=== PATIENT | male | born 1970 | race Caucasian/White ===

== ENCOUNTER 2022-10-15 08:09 | Outpatient (OUT) | payer OTHER, SELFPAY ==
[2022-10-15 09:46] LABS: Estimated Average Glucose 154 mg/dL
== END 2022-10-15 08:10 | disposition home or self-care (01) ==
LOC: LAB 08:09
PROVIDERS: PCP Internal Medicine; Visit Provider Internal Medicine
DX: E11.42 Type 2 diabetes mellitus with diabetic polyneuropathy (principal)
CPT/HCPCS: 36415; 83036

== ENCOUNTER 2022-10-26 16:56 | Emergency (ER) | payer OTHER, SELFPAY ==
[2022-10-26 16:58] VITALS: BP 165/99; PULSE 88; RESP 20; TEMP 37.2; O2SAT 98; BMI 26.3
--- NOTE | 2022-10-26 17:01 | XR_ITS ---
The [address] [address] Patient Name: CHAVA JONES MRN: [id number] date: 1970 Sex: M Assigned Patient Location: ED.MAIN Current Patient Location: Accession/Order Number: [id number] Exam Date: 10/26/2022 17:05 Report Date: 10/26/2022 18:03 At the request of: MERLE RICHARDSON Procedure: XR shoulder LT min 2V IMAGES REVIEWED: XR shoulder LT min 2V COMPARISON: None available. CLINICAL INDICATION: Pain. FINDINGS/IMPRESSION: 1. No evidence of acute osseous abnormality of the left shoulder. 2. 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 Mild-moderate degenerative change of the left glenohumeral joint. 3. Calcified sequela of remote granulomatous disease in the left chest. Electronically authenticated by: CALOS POOLE Date: 10/26/2022 18:03
--- NOTE | 2022-10-26 17:01 | ED_ITS ---
Documented by User: SHAJI Robles 10/26/22 17:21 HPI - Extremity Injury (Upper) General Chief Complaint: Extremity Injury, Upper Stated Complaint: LEFT SHOULDER PAIN Time Seen by Provider: 10/26/22 17:01 Source: patient Mode of arrival: walk-in Limitations: no limitations History of Present Illness HPI narrative: patient is a 52-year-old male who presents to the emergency department for two week history of pain in the left glenohumeral joint. He states he developed pain after lifting and bench pressing. Pain is worse with abduction of the left shoulder. He denies any tingling in the left hand. He at no direct injury to the shoulder or the neck. No medications taken prior to arrival. he is right-hand dominant Related Data Home Medications Medication Instructions Recorded Confirmed alprazolam 0.25 mg tablet (Xanax) 0.125 mg PO TID 10/26/22 10/26/22 atorvastatin 80 mg tablet 80 mg PO DAILY 10/26/22 10/26/22 Previous Rx's Medication Instructions Recorded methocarbamol 750 mg tablet 750 mg PO TID PRN pain #20 tabs 10/26/22 methylprednisolone 4 mg tablets in See Rx Instructions .Route 10/26/22 a dose pack (Medrol (Logan)) .COMPLEX #21 ea naproxen sodium 550 mg tablet 550 mg PO BID PRN pain #10 tabs 10/26/22 Allergies Allergy/AdvReac Type Severity Reaction Status Date / Time No Known Drug Allergies Allergy Verified 10/26/22 17:00 Review of Systems ROS Constitutional Denies: fever or chills Ears, nose, mouth, and throat Denies: throat pain Cardiovascular Denies: chest pain Respiratory Denies: shortness of breath or cough Gastrointestinal Denies: nausea or vomiting Musculoskeletal Reports: extremity pain; Denies: back pain or neck pain Integumentary/Breast Denies: rash Neurological Denies: headache Exam Narrative Exam Narrative: Gen.: Awake, alert, in no distress Head: Normocephalic, atraumatic ENT: Moist mucous membranes Respiratory: No respiratory distress Extremities: 2+ left radial pulse. 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 No shortening of the left bicep, limited abduction at the left shooulder due to pain. No obvious deformity or sulcus sign of the left shoulder. No bony point tenderness of the posterior cervical spine or left scapula. Psych: Normal mood and affect Neuro: No focal neuro deficit Skin: Warm, dry, intact Constitutional Vital Signs, click to edit/add: Last Vital Signs Temp 98.9 F 10/26/22 16:58 Pulse 88 10/26/22 16:58 Resp 20 10/26/22 16:58 BP 165/99 H 10/26/22 16:58 Pulse Ox 98 10/26/22 16:58 O2 Del Method Room Air 10/26/22 16:58 Course Vital Signs Vital signs: Vital Signs Temperature 98.9 F 10/26/22 16:58 Pulse Rate 88 10/26/22 16:58 Respiratory Rate 20 10/26/22 16:58 Blood Pressure 165/99 H 10/26/22 16:58 Pulse Oximetry 98 10/26/22 16:58 Oxygen Delivery Method Room Air 10/26/22 16:58 Temperature 98.9 F 10/26/22 16:58 Pulse Rate 88 10/26/22 16:58 Respiratory Rate 20 10/26/22 16:58 Blood Pressure 165/99 H 10/26/22 16:58 Pulse Oximetry 98 10/26/22 16:58 Oxygen Delivery Method Room Air 10/26/22 16:58 MDM - Extremity Injury (Upper) MDM Narrative Medical decision making narrative: x-rays of the left shoulder with mild arthritic changes, no fracture or dislocation noted. Patient placed in a sling and encouraged to have limited use of the sling to avoid frozen shoulder. Follow-up with orthopedics. Rest, ice, gentle stretching. Patient is neurovascularly intact at discharge. Orthopedic referral given. Return to the Emergency Room if symptoms change or worsen. Imaging Data XR shoulder: Attestation: I have reviewed the pertinent imaging results. Discharge Plan Discharge Chief Complaint: Extremity Injury, Upper Clinical Impression: Acute pain of left shoulder, Left shoulder strain Patient Disposition: Home, Self-Care Time of Disposition Decision: 17:13 Condition: Good Prescriptions / Home Meds: New methylprednisolone [Medrol (Logan)] 4 mg tablets,dose pack See Rx Instructions .ROUTE .COMPLEX Qty: 21 0RF Rx Instructions: Taper as directed methocarbamol 750 mg tablet 750 mg PO TID PRN (Reason: pain) Qty: 20 0RF naproxen sodium 550 mg tablet 550 mg PO BID PRN (Reason: pain) Qty: 10 0RF No Action alprazolam [Xanax] 0.25 mg tablet 0.125 mg PO TID atorvastatin 80 mg tablet 80 mg PO DAILY Instructions: Muscle Strain (ED), How to Use a Sling (ED), Shoulder Pain (ED) Additional Instructions: Follow up with orthopedics as needed ([facility] [phone] or [facility] [phone]) Stand Alone Forms: Portal Instructions Referrals: Max Ojeda DO [Primary Care Provider] - 1 week Discharge Date/Time: 10/26/22 17:33 Documented by User: Christiano Way MD 10/26/22 19:34 HPI - Extremity Injury (Upper) General Chief Complaint: Extremity Injury, Upper Stated Complaint: LEFT SHOULDER PAIN Time Seen by Provider: 10/26/22 17:01 Related Data Home Medications Medication Instructions Recorded Confirmed alprazolam 0.25 mg tablet (Xanax) 0.125 mg PO TID 10/26/22 10/26/22 atorvastatin 80 mg tablet 80 mg PO DAILY 10/26/22 10/26/22 Previous Rx's Medication Instructions Recorded methocarbamol 750 mg tablet 750 mg PO TID PRN pain #20 tabs 10/26/22 methylprednisolone 4 mg tablets in See Rx Instructions .Route 10/26/22 a dose pack (Medrol (Logan)) .COMPLEX #21 ea naproxen sodium 550 mg tablet 550 mg PO BID PRN pain #10 tabs 10/26/22 Allergies Allergy/AdvReac Type Severity Reaction Status Date / Time No Known Drug Allergies Allergy Verified 10/26/22 17:00 Exam Constitutional Vital Signs, click to edit/add: Last Vital Signs Temp 98.9 F 10/26/22 16:58 Pulse 88 10/26/22 16:58 Resp 20 10/26/22 16:58 BP 165/99 H 10/26/22 16:58 Pulse Ox 98 10/26/22 16:58 O2 Del Method Room Air 10/26/22 16:58 Course Vital Signs Vital signs: Vital Signs Temperature 98.9 F 10/26/22 16:58 Pulse Rate 88 10/26/22 16:58 Respiratory Rate 20 10/26/22 16:58 Blood Pressure 165/99 H 10/26/22 16:58 Pulse Oximetry 98 10/26/22 16:58 Oxygen Delivery Method Room Air 10/26/22 16:58 Temperature 98.9 F 10/26/22 16:58 Pulse Rate 88 10/26/22 16:58 Respiratory Rate 20 10/26/22 16:58 Blood Pressure 165/99 H 10/26/22 16:58 Pulse Oximetry 98 10/26/22 16:58 Oxygen Delivery Method Room Air 10/26/22 16:58 MDM - Extremity Injury (Upper) MDM Narrative Medical decision making narrative: x-rays of the left shoulder with mild arthritic changes, no fracture or dislocation noted. Patient placed in a sling and encouraged to have limited use of the sling to avoid frozen shoulder. Follow-up with orthopedics. Rest, ice, gentle stretching. Patient is neurovascularly intact at discharge. Orthopedic referral given. Return to the Emergency Room if symptoms change or worsen. I, Dr Way, have reviewed the above progress note and course of action in the ER; agree with the above. I have personally seen and evaluated this patient, gone over history and physical, and discussed disposition and treatment plan with the patient. Discharge Plan Discharge Chief Complaint: Extremity Injury, Upper Clinical Impression: Acute pain of left shoulder, Left shoulder strain Patient Disposition: Home, Self-Care Time of Disposition Decision: 17:13 Condition: Good Prescriptions / Home Meds: New methylprednisolone [Medrol (Logan)] 4 mg tablets,dose pack See Rx Instructions .ROUTE .COMPLEX Qty: 21 0RF Rx Instructions: Taper as directed methocarbamol 750 mg tablet 750 mg PO TID PRN (Reason: pain) Qty: 20 0RF naproxen sodium 550 mg tablet 550 mg PO BID PRN (Reason: pain) Qty: 10 0RF No Action alprazolam [Xanax] 0.25 mg tablet 0.125 mg PO TID atorvastatin 80 mg tablet 80 mg PO DAILY Instructions: Muscle Strain (ED), How to Use a Sling (ED), Shoulder Pain (ED) Additional Instructions: Follow up with orthopedics as needed ([facility] [phone] or [facility] [place] [phone]) Stand Alone Forms: Portal Instructions Referrals: Max Ojeda DO [Primary Care Provider] - 1 week Discharge Date/Time: 10/26/22 17:33
== END 2022-10-26 17:33 | disposition home or self-care (01) ==
PROVIDERS: Emergency Provider Emergency Medicine; PCP Internal Medicine
DX: S46.912A Strain of unspecified muscle, fascia and tendon at shoulder and upper arm level, left arm, initial encounter (principal); M25.512 Pain in left shoulder; Y93.B3 Activity, free weights; X50.0XXA Overexertion from strenuous movement or load, initial encounter; Z79.899 Other long term (current) drug therapy
CPT/HCPCS: 73030; 99283

== ENCOUNTER 2023-03-03 09:40 | Outpatient (OUT) | payer OTHER, SELFPAY ==
[2023-03-03 10:10] LABS: Microalbumin Urine Random <1.3 mg/dL (<=30.0)
[2023-03-03 10:12] LABS: Estimated Average Glucose 177 mg/dL; Glycohemoglobin A1C 7.8 % (4.5-6.2)
[2023-03-03 10:16] LABS: Alanine Aminotransferase 44 U/L (16-63); Albumin Globulin Ratio 1.1; Albumin Level 3.8 g/dL (3.4-5.0); Alkaline Phosphatase 54 U/L (46-116); Anion Gap 10.4; Aspartate Amino Transferase 23 U/L (15-37); Bilirubin Total 1.2 mg/dL (0.2-1.0); Calcium 8.8 mg/dL (8.5-10.1); Carbon Dioxide 32.8 mmol/L (21.0-32.0); Chloride 104 mmol/L (98-107); Chol HDL Ratio 3.3; Cholesterol 156 mg/dL (<=200); Estimated GFR (African America >60 (>=60); Estimated GFR (Non-African Ame >60 (>=60); Globulin 3.6 g/dL; Glucose 187 mg/dL (74-106); HDL Cholesterol 47 mg/dL (40-60); LDL Cholesterol Calculated 92.6 mg/dL; Potassium 4.2 mmol/L (3.5-5.1); Sodium 143 mmol/L (136-145); Total Protein 7.4 g/dL (6.4-8.2); Triglycerides 82 mg/dL (<=150); VLDL CHOLESTEROL 16.4 mg/dL
[2023-03-03 10:24] LABS: Basophils Percent Auto 0.5 % (0.2-2.0); Eosinophils Absolute Auto 0.2 10^3/uL (0.0-0.7); Hematocrit 42.2 % (42.0-54.0); Hemoglobin 13.7 g/dL (14.0-18.0); Immature Granulocytes Abs Auto 0.03 10^3/uL (0.00-0.03); Immature Granulocytes Pct Auto 0.4 % (0.0-0.5); Lymphocytes Absolute Auto 1.4 10^3/uL (1.2-3.8); Mean Corpuscular HGB Conc 32.5 g/dL (29.9-35.2); Mean Corpuscular Hemoglobin 28.2 pg (25.9-34.0); Mean Corpuscular Volume 86.8 fL (80.0-94.0); Mean Platelet Volume 9.1 fL (9.5-13.5); Monocytes Absolute Auto 0.8 10^3/uL (0.3-0.8); Monocytes Percent Auto 10.2 % (1.7-12.0); Neutrophils Absolute Auto 5.1 10^3/uL (1.4-6.5); Neutrophils Percent Auto 67.9 % (43.0-75.0); Platelet Count 294 10^3/uL (150-450); Red Blood Count 4.86 10^6/uL (4.70-6.10); Red Cell Distribution Width 12.9 % (11.0-15.0); White Blood Count 7.5 10^3/uL (4.0-11.0)
[2023-03-03 11:06] LABS: Prostate Specific Antigen Scrn 1.12 ng/mL (<=4.00)
== END 2023-03-03 09:41 | disposition home or self-care (01) ==
LOC: LAB 09:41
PROVIDERS: PCP Internal Medicine; Visit Provider Internal Medicine
DX: Z00.00 Encounter for general adult medical examination without abnormal findings (principal)
CPT/HCPCS: 36415; 80053; 80061; 82043; 83036; 85025; G0103

== ENCOUNTER 2023-04-21 14:11 | Outpatient (RCR) | payer OTHER, SELFPAY | END 2023-05-23 12:22 | disposition home or self-care (01) | LOC: PT 14:11 | PROVIDERS: PCP Internal Medicine; Visit Provider Orthopaedic Surgery | DX: M25.512 Pain in left shoulder (principal) | CPT/HCPCS: 97010; 97014; 97110; 97140; 97161 ==

== ENCOUNTER 2023-06-27 10:48 | Outpatient (OUT) | payer OTHER, SELFPAY ==
--- OUTSIDE RECORDS SUMMARY | 2023-06-27 11:09 | XMS_ITS | CCD ---
Author Organization [facility] Care Team Providers Care Cashier Greeter Name Role Phone Max Ojeda Unavailable RUSTY, DR HOLLAND Primary Care Unavailable ELAINA, DR STEPHY Morgan Consulting Unavailable SHAIKH Aishwarya WONG Attending Unavailable SHAIKH Aishwarya WONG Admitting Unavailable HAY ., DR BRYANT Consulting Unavailable GLATZ, ALFONSO Schumacher Consulting Unavailable SHAIKH Aishwarya WONG Consulting Unavailable KLYMCHAVA Consulting Unavailable JBARA, JENNIFER Consulting Unavailable RUSTY, DR HOLLAND Admitting Unavailable RUSTY, DR HOLLAND Attending Unavailable RUSTY, DR HOLLAND Primary Care Unavailable RUSTY, DR HOLLAND Consulting Unavailable MAX OJEDA Primary Care Physician [phone] Zen Tavera Referring Unavailable Zen Tavera Attending Zen Wang Admitting Unavailable ZEN TAVERA Attending Unavailable ZEN TAVERA Attending Unavailable ZEN TAVERA Attending Unavailable ZEN TAVERA Referring Unavailable ZEN TAVERA Attending Unavailable ZEN TAVERA Referring Unavailable Medications Current Medications Medication Drug Class(es) Dates Sig (Normalized) Sig (Original) acetaminophen 325 mg / oxyCODONE hydrochloride 5 mg oral tablet (1 source) Opioid Agonist Start: 04-07-2023 Percocet 5 mg-325 mg oral tablet See Instructions, 40 tab(s), Refill(s) 0, 1-2 tab(s) Oral q4hr, [id number], 176.7, cm, 03/23/23 9:11:00 EST, Height/Length Dosing, 83.7, kg, 03/23/23 9:11:00 EST, Weight Dosing Start Date: 04/07/23 Status: Ordered [id number] 200 actuat albuterol 0.09 mg/actuat metered dose inhaler (13 sources) beta2-Adrenergic Agonist Start: 05-18-2019 take 2 puff(s) by inhalation every four hours as needed Start: 05-18-2019 take 2 puff(s) by in halation every four hours as needed Albuterol Sulfate HFA 108 (90 Base) MCG/ACT 2 puffs as needed Inhalation every 4 hrs for 30 days Apr, Not-Taking/PRN ALPRAZolam 0.25 mg oral tablet (15 sources) Benzodiazepine Start: 07-31-2019 take 1 tablet by mouth every eight hours as needed for anxiety ALPRAZolam 0.25 MG 1 tablet Orally every 8 hours as needed for anxiety May, Active atorvastatin 80 mg oral tablet (20 sources) HMG-CoA Reductase Inhibitor Start: 03-23-2023 take 1 tablet by mouth once daily atorvastatin 80 mg Tab 80 mg = 1 tab(s), Oral, Daily, Refills(s) 0, High cholesterol Start Date: 03/23/23 Status: Ordered take 1 tablet by leydi th every twenty-four hours Lipitor 10 MG 1 tablet Orally Once a day Active docusate sodium 100 mg oral capsule (1 source) Start: 04-07-2023 take 1 capsule by mouth twice daily as needed for constipation Colace 100 mg Cap 100 mg = 1 cap(s), Oral, BID, PRN for constipation, # 20 cap(s), Refills(s) 0, Pharmacy: [id number], 176.7, cm, 03/23/23 9:11:00 EST, Height/Length Dosing, 83.7, kg, 03/23/23 9:11:00 EST, Weight Dosing Start Date: 04/07/23 Status: Ordered doxycycline hyclate 100 mg oral capsule (8 sources) Tetracycline-class Drug Start: 06-28-2022 take 1 capsule by mouth twice daily Doxycycline Hyclate 100 MG 1 capsule Orally twice daily for 7 days Jun, Active glimepiride 1 mg oral tablet (15 sources) Sulfonylurea Start: 07-31-2019 take 1.5 mg by mouth once daily glimepiride 1 mg Tab 1.5 mg = 1.5 tab(s), Oral, Daily, Refills(s) 0, High blood sugar Start Date: 07/31/19 Status: Ordered take 1.5 tablets by mouth every twenty-four hours Glimepiride 2 MG 1.5 tablet with breakfast or the first main meal of the day Orally Once a day Active Glimepiride 2 MG TAKE 1 TABLET DAILY BEFORE BREAKFAST Active hydrocortisone 25 mg/ml topi fanny cream (20 sources) Corticosteroid Hydrocortisone 2 .5 % 1 application Externally Once a day Active Hydrocortisone A cetate 25 MG 1 suppository Rectal Once a day Active Hydrocortisone 2 .5 % 1 application Externally Once a day Active ibuprofen 600 mg oral tablet (1 source) Nonsteroidal Anti-inflammatory Drug Start: 04-07-2023 take 1 tablet by mouth every six hours as needed for pain ibuprofen 600 mg Tab 600 mg = 1 tab(s), Oral, q6hr, PRN as needed for pain, with food or milk, # 50 tab(s), Refills(s) 0, Pharmacy: [facility] #[id number], 176.7, cm, 03/23/23 9:11:00 EST, Height/Length Dosing, 83.7, kg, 03/23/23 9:11:00 EST, Weight Dosing Start Date: 04/07/23 Status: Ordered metFORMIN hydrochloride 1000 mg / SITagliptin 50 mg oral tablet (15 sources) Biguanide, Dipeptidyl Peptidase 4 Inhibitor Start: 07-31-2019 take 1 tablet by mouth twice daily Janumet 50 mg/1000 mg oral tablet 1 tab(s), Oral, BID, Refill(s) 0, High blood sugar Start Date: 07/31/19 Status: Ordered take 1 tablet by mouth every twe lve hours Janumet 50-500 MG 1 tablet with meals Orally Twice a day Active omeprazole 40 mg delayed release oral capsule (10 sources) Proton Pump Inhibitor Start: 07-31-2019 take 1 capsule by mouth once daily omeprazole 40 mg Cap-DR 40 mg = 1 cap(s), Oral, Daily, Refills(s) 0, Indigestion Start Date: 07/31/19 Status: Ordered Omeprazole 40 MG TAKE 1 CAPSULE ON EMPTY STOMACH FOLLOWED IN 30 MINUTES BY BKFST Active sildenafil 100 mg oral tablet (2 sources) Phosphodiesterase 5 Inhibitor Start: 07-31-2019 take 1 tablet by mouth once daily as needed sildenafil 100 mg Tab 100 mg = 1 tab(s), Oral, Daily, PRN erectile dysfunction, Refills(s) 0 Start Date: 07/31/19 Status: Ordered Completed/Discontinued Medications Medication Drug Class(es) Dates Sig (Normalized) Sig (Original) dextromethorphan hydrobromide 15 mg / guaiFENesin 400 mg / pseudoephedrine hydrochloride 60 mg oral tablet (13 sources) alpha-Adrenergic Agonist, Uncompetitive F-uapqel-I-aspartat e Receptor Antagonist, Sigma-1 Agonist Start: 05-18-2019 Capmist DM 60-15-400 MG 1/2 to 1 tablet Orally every 6-8 hours as needed for 8 days Apr, Not-Taking/PRN methylPREDNISolone 4 mg oral tablet (13 sources) Corticosteroid Start: 05-18-2019 Medrol 4 MG as directed Orally for 6 days Apr, Not-Taking/PRN oseltamivir 75 mg oral capsule (13 sources) Neuraminidase Inhibitor Start: 05-18-2019 take 1 capsule by mouth every twelve hours Tamiflu 75 MG 1 capsule Orally Twice a day for 5 day(s) Apr, Not-Taking/PRN triamcinolone acetonide 40 mg/ml injectable suspension (5 sources) Corticosteroid Start: 11-25-2022 Kenalog-40 Nov, 60 mg Problems Active Problems Problem Classification Problem Date Documented Da te Episodic/Chronic Abdominal pain (6 sources) Acute abdominal pain; Translations: [Left lower quadrant pain] 07-08-2020 Episodic Anxiety disorders (20 sources) Acute stress disorder; Translations: [Acute stress reaction] Onset: 3 Chronic Diabetes mellitus with complications (20 sources) Hyperglycemia due to type 2 diabetes mellitus; Translations: [Type 2 diabetes mellitus with hyperglycemia] Onset: 3 Chronic Diabetes mellitus without complication (4 sources) Diabetes mellitus; Translations: [Type 2 diabetes mellitus well controlled] 07-31-2019 Chronic Disorders of lipid metabolism (19 sources) Mixed hyperlipidemia; Translations: [Mixed hyperlipidemia] Onset: 3 Chronic E Codes: Adverse effects of medical drugs (2 sources) Adverse effect of glucocorticoids and synthetic analogues, initial encounter; Translations: [ADVRS EFF GLUCOCORT SYN ANALOG INIT] Onset: 3 Episodic Esophageal disorders (6 sources) Gastro-esophageal reflux disease with esophagitis; Translations: [Gastroesophageal reflux disease with esophagitis without hemorrhage] 07-31-2019 Chronic Essential hypertension (14 sources) Essential hypertension; Translations: [Essential (primary) hypertension] Chronic Gastrointestinal hemorrhage (2 sources) Rectal hemorrhage 07-31-2019 Episodic Headache; including migraine (3 sources) Headache; including migraine; Translations: [HEADACHE UNSPECIFIED] Onset: 3 Hemorrhoids (13 sources) External hemorrhoids; Translations: [Residual hemorrhoidal skin tags] Episodic Hypertension with complications and secondary hypertension (1 source) Hypertensive urgency; Translations: [HYPERTENSIVE URGENCY] Onset: 3 Chronic Mood disorders (1 source) Major depressive disorder, single episode, unspecified; Translations: [DIEGO DEPRESS D/O SINGLE EPIS UNS] Onset: 3 Chronic Other acquired deformities (13 sources) 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; Translations: [Contracture, right ankle] Chronic Other aftercare (1 source) Other ad terminal makeup operator (current) drug therapy; Translations: [OTH WET POUR MIXER CURRENT DRUG THERAPY] Onset: 3 Episodic Other and unspecified benign neoplasm (2 sources) Tubular adenoma of colon 08-18-2020 Episodic Other circulatory disease (1 source) Elevated blood-pressure reading, without diagnosis of hypertension Episodic Other connective tissue disease (13 sources) Pain in limb; Translations: [Pain in right foot] Episodic Other connective tissue disease (13 sources) Plantar fascial fibromatosis; Translations: [Plantar fascial fibromatosis] Episodic Other lower respiratory disease (1 source) Nodule of lung; Translations: [Solitary pulmonary nodule] Episodic Other male genital disorders (13 sources) Induratio penis plastica; 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 Other male genital disorders (13 sources) Impotence of organic origin; Translations: [Erectile dysfunction due to arterial insufficiency] Chronic Other male genital disorders (2 sources) Erectile dysfunction co-occurrent and due to arterial insufficiency 07-31-2019 Chronic Other nervous system disorders (13 sources) Paresthesia; Translations: [Paresthesia of skin] Episodic Other non-traumatic joint disorders (1 source) Pain in left shoulder Episodic Other nutritional; endocrine; and metabolic disorders (1 source) Overweight Episodic Other nutritional; endocrine; and metabolic disorders (2 sources) Body mass index 25-29 - overweight 07-08-2020 Episodic Other screening for suspected conditions (not mental disorders or infectious disease) (20 sources) Blood chemistry abnormal; Translations: [Other specified abnormal findings of blood chemistry] Onset: 2 Episodic Other skin disorders (13 sources) Hair follicle disorder; Translations: [Other specified follicular disorders] Episodic Other skin disorders (13 sources) Vesicular eczema of hands and/or feet; Translations: [Dyshidrosis [pompholyx]] Episodic Other upper respiratory disease (13 sources) Seasonal allergic rhinitis; Translations: [Other seasonal allergic rhinitis] Chronic Other upper respiratory disease (1 source) Other seasonal allergic rhinitis Chronic Other upper respiratory disease (13 sources) Bleeding from nose; Translations: [Epistaxis] Episodic Other upper respiratory disease (1 source) Cyst and mucocele of nose and nasal sinus Episodic Phlebitis; thrombophlebitis and thromboembolism (3 sources) Phlebitis and thrombophlebitis of other sites Episodic Sprains and strains (2 sources) Strain of unspecified muscle(s) and tendon(s) at lower leg level, left leg, initial encounter; Translations: [Strain of muscle(s) and tendon(s) of the rotator cuff of left shoulder, initial encounter] Episodic Unclassified (1 source) CONTACT W/AND (SUSP) EXPOS COVID-19; Translations: [CONTACT W/AND (SUSP) EXPOS COVID-19] Onset: 3 Past or Other Problems Problem Classification Problem Date Documented Da te Episodic/Chronic Esophageal disorders (13 sources) Esophageal disorders; Translations: [Gastroesophageal reflux disease with esophagitis without hemorrhage] Viral infection (13 sources) Disease caused by 2019-nCoV; Translations: [COVID-19] Results Test Name Value Interpretation Reference Range Facility CHEMISTRYOrdered By: Lab ROP User on 04-07-2023 Glucose [Mass/Vol] 203 mg/dL High 55 - 99 mg/dL FT [facility] POC Subsection Comment on above: Result Comment: No C overage Given Cleaned Meter POC Device SN [id number] Invalid Interpretation Code [facility] POC Subsection POC User ID [id number] 1 Invalid Interpretation Code [facility] POC Subsection POC Username MILLA BENDER Invalid Interpretation Code [facility] POC Subsection XR Chest 2 Viewson 3 XR Chest 2 Views Exam Date/Time: 03/23/2023 08:59 EST Reason for Exam: P.A.T. Report IMPRESSION: NODULAR DENSITY ON THE LEFT, AND FURTHER EVALUATION WITH A CT SCAN OF THE CHEST IS RECOMMENDED. CLINICAL HISTORY: P.A.T.. COMMENT: The heart is normal in size. The mediastinum is unremarkable. There are small lung granulomatous calcifications. There is a 2.2 cm nodular density projecting on the posterolateral aspect of the left lung base, but whether this is above or below the diaphragm is not determined. Further evaluation is recommended. No infiltration nor pleural effusion is evident. Partially included within the [id number]-ya-[id number] is metallic surgical hardware associated with the lower cervical spine. Ordering Provider: Peralta Ahmad FINAL REPORT Dictated: 03/24/2023 11:49 am Joe Aguilar M.D. Signed (Electronic Signature): 03/24/2023 11:49 am Signed by: Joe Aguilar M.D. Transcribed by: SALVADOR Technologist: LETICIA Technical Comments Radiation Dose: Ka,r in mGy = na DAP = na Normal [facility] Auto Diffon 03-23-2023 Basophils/100 WBC (Bld) 0.6 % Normal 0.0-2.0 [facility] Comment on above: Order Comment: Order Added by Discern Expert. Performed By: #### 2 [id number], 3567165, [id number], [id number] #### [facility] [address] [place] [address] Basophils/Leukocytes Auto (Bld) [Pure # fraction] 0.0 E9/L Normal 0.0-0.2 [facility] Comment on above: Order Comment: Order Added by Discern Expert. Performed By: #### 2 863401, 7734957, [id number], [id number] #### [facility] [address] [place] [address] Eosinophils/100 WBC (Bld) 1.8 % Normal 0.0-8.0 [facility] Comment on above: Order Comment: Order Added by Discern Expert. Performed By: #### 2 067843, 3329429, 7323165, [id number] #### [facility] [address] [place] [address] Eosinophils/Leukocyte s Auto (Bld) [Pure # fraction] 0.1 E9/L Normal 0.0-0.5 [facility] Comment on above: Order Comment: Order Added by Discern Expert. Performed By: #### 2 997716, 6933359, 9254819, [id number] #### [facility] [address] [place] [address] Lymphocytes/100 WBC (Bld) 19.3 % Normal 14.0-50.0 [facility] Comment on above: Order Comment: Order Added by Discern Expert. Performed By: #### 2 008072, 2249344, 0824177, [id number] #### [facility] [address] [place] [address] Lymphocytes/Leukocyte s Auto (Bld) [Pure # fraction] 1.3 E9/L Normal 1.0-4.0 [facility] Comment on above: Order Comment: Order Added by Discern Expert. Performed By: #### 2 257070, 3480939, 8552375, [id number] #### [facility] [address] [place] [address] Monocytes/100 WBC (Bld) 8.4 % Normal 4.0-14.0 [facility] Comment on above: Order Comment: Order Added by Discern Expert. Performed By: #### 2 946116, 7714397, 4367780, [id number] #### [facility] [address] [place] [address] Monocytes/Leukocytes Auto (Bld) [Pure # fraction] 0.6 E9/L Normal 0.2-1.0 [facility] Comment on above: Order Comment: Order Added by Discern Expert. Performed By: #### 2 116753, 8267587, 3377203, [id number] #### [facility] [address] [place] [address] Neutrophils/100 WBC (Bld) 69.9 % Normal 36.0-75.0 [facility] Comment on above: Order Comment: Order Added by Discern Expert. Performed By: #### 2 945430, 8565338, 3606010, [id number] #### [facility] [address] [place] [address] Neutrophils/Leukocyte s Auto (Bld) [Pure # fraction] 4.6 E9/L Normal 2.0-7.5 [facility] Comment on above: Order Comment: Order Added by Discern Expert. Performed By: #### 2 103511, 6420617, 1771893, [id number] #### [facility] [address] [place] [address] BMPon 03-23-2023 Anion gap [Moles/Vol] 10 mmol/L Normal 6-16 [facility] Comment on above: Performed By: #### 2 523427, 8521113, 1515628, [id number] #### [facility] [address] [place] [address] BUN/Creat Ratio 18 No Units Normal 10-20 [facility] Comment on above: Performed By: #### 2 634980, 9622610, 5888663, [id number] #### [facility] [address] [place] [address] Calcium [Mass/Vol] 9.6 mg/dL Normal 8.9-11.1 [facility] Comment on above: Performed By: #### 2 804069, 7277482, 3764737, [id number] #### [facility] [address] [place] [address] Chloride [Moles/Vol] 103 mmol/L Normal 101-111 [facility] Comment on above: Performed By: #### 2 258724, 4503230, 8299917, [id number] #### [facility] [address] [place] [address] CO2 [Moles/Vol] 31 mmol/L Normal 21-31 [facility] Comment on above: Performed By: #### 2 965281, 9101363, 2931398, [id number] #### [facility] [address] [place] [address] Creatinine [Mass/Vol] 0.8 mg/dL Normal 0.5-1.3 [facility] Comment on above: Performed By: #### 2 694479, 1322266, 0697943, 30616030 #### [facility] [address] [place] [address] Glucose [Mass/Vol] 169 mg/dL Normal 55-199 [facility] Comment on above: Performed By: #### 2 567173, 2363465, 0123720, [id number] #### [facility] [address] [place] [address] Potassium [Moles/Vol] 4.3 mmol/L Normal 3.5-5.3 [facility] Comment on above: Performed By: #### 2 865308, 2935322, 5170836, [id number] #### [facility] [address] [place] [address] Sodium [Moles/Vol] 140 mmol/L Normal 135-145 [facility] Comment on above: Performed By: #### 2 380283, 3521151, 6423155, [id number] #### [facility] [address] [place] [address] Urea nitrogen [Mass/Vol] 14 mg/dL Normal 5-21 [facility] Comment on above: Performed By: #### 2 316313, 7044553, 4148274, [id number] #### [facility] [address] [place] [address] CBC w/ Auto Diffon Erythrocyte distribution width (RBC) [Ratio] 13.7 % Normal 10.9-14.2 [facility] Comment on above: Performed By: #### 2 620915, 5985243, 6481828, [id number] #### [facility] [address] [place] [address] Hematocrit (Bld) [Volume fraction] 43.0 % Normal 37.7-49.0 [facility] Comment on above: Performed By: #### 2 119278, 6542056, 6938211, [id number] #### [facility] [address] [place] [address] Hemoglobin (Bld) [Mass/Vol] 14.6 g/dL Normal 13.5-17.5 [facility] Comment on above: Performed By: #### 2 223746, 9908027, 8285275, 33732081 #### [facility] [address] [place] [address] MCH (RBC) [Entitic mass] 28.3 pg Normal 27.0-34.0 [facility] Comment on above: Performed By: #### 2 250724, 6035181, 9778883, [id number] #### [facility] [address] [place] [address] MCHC (RBC) [Mass/Vol] 33.9 g/dL Normal 31.4-36.0 [facility] Comment on above: Performed By: #### 2 512763, 9745039, 7381662, 95592280 #### [facility] [address] [place] [address] MCV (RBC) [Entitic vol] 83.3 fL Normal 80.0-100.0 [facility] Comment on above: Performed By: #### 2 539290, 0569771, 5945920, [id number] #### [facility] [address] [place] [address] Platelet mean volume (Bld) [Entitic vol] 7.4 fL Normal 6.4-10.8 [facility] Comment on above: Performed By: #### 2 059410, 2788157, 2852546, 27498787 #### [facility] [address] [place] [address] Platelets (Bld) [#/Vol] 315.0 E9/L Normal 150.0-500.0 [facility] Comment on above: Performed By: #### 2 299785, 8387638, 5548610, 05262906 #### [facility] [address] [place] [address] RBC (Bld) [#/Vol] 5.2 E12/L Normal 4.3-5.9 [facility] Comment on above: Performed By: #### 2 047469, 4129968, 2032743, 19386243 #### [facility] [address] [place] [address] WBC corrected for nucl RBC Auto (Bld) [#/Vol] 6.6 E9/L Normal 4.0-11.0 [facility] Comment on above: Performed By: #### 2 727080, 0887025, 1110113, [id number] #### [facility] [address] [place] [address] CHEMISTRYOrdered By: SYSTEM SYSTEM on 03-23-2023 Anion gap [Moles/Vol] 10 mmol/L Normal 6 - 16 mEq/L R emisol Chem Calcium [Mass/Vol] 9.6 mg/dL Normal 8.9 - 11. 1 mg/dL [facility] Chloride [Moles/Vol] 103 mmol/L Normal 101 - 1 11 mmol/L [facility] CO2 [Moles/Vol] 31 mmol/L Normal 21 - 31 mmol/L [facility] Creatinine [Mass/Vol] 0.8 mg/dL Normal 0.5 - 1.3 mg/dL [facility] eGFR mL/min/1.73 m2 Normal >=59mL/min/1. 73 m2 [facility] Glucose [Mass/Vol] 169 mg/dL Normal 55 - 199 mg/dL [facility] Potassium [Moles/Vol] 4.3 mmol/L Normal 3.5 - 5.3 mmol/L [facility] Sodium [Moles/Vol] 140 mmol/L Normal 135 - 145 mmol/L [facility] Urea nitrogen [Mass/Vol] 14 mg/dL Normal 5 - 21 mg/dL [facility] Urea nitrogen/Creatinine [Mass ratio] 18 mg/mg Normal 10 - 20 [facility] Consent for Treatmenton 02-25 Consent for Treatment [id number] CF#[id number] Normal [facility] HEMATOLOGYOrdered By: SYSTEM SYSTEM on 03-23-2023 Basophils/100 WBC (Bld) 0.6 % Normal 0.0 - 2.0 % [facility] Basophils/Leukocytes Auto (Bld) [Pure # fraction] 0.0 E9/L Normal 0.0 - 0.2 E9/L [facility] Eosinophils/100 WBC (Bld) 1.8 % Normal 0.0 - 8.0 % [facility] Eosinophils/Leukocyte s Auto (Bld) [Pure # fraction] 0.1 E9/L Normal 0.0 - 0.5 E9/L [facility] Lymphocytes/100 WBC (Bld) 19.3 % Normal 14.0 - 50.0 % [facility] Lymphocytes/Leukocyte s Auto (Bld) [Pure # fraction] 1.3 E9/L Normal 1.0 - 4.0 E9/L [facility] Monocytes/100 WBC (Bld) 8.4 % Normal 4.0 - 14.0 % [facility] Monocytes/Leukocytes Auto (Bld) [Pure # fraction] 0.6 E9/L Normal 0.2 - 1.0 E9/L [facility] Neutrophils/100 WBC (Bld) 69.9 % Normal 36.0 - 75.0 % [facility] Neutrophils/Leukocyte s Auto (Bld) [Pure # fraction] 4.6 E9/L Normal 2.0 - 7.5 E9/L [facility] HEMATOLOGYOrdered By: Cher Echeverria on 03-23-2023 Erythrocyte distribution width (RBC) [Ratio] 13.7 % Normal 10.9 - 14.2 % [facility] Hematocrit (Bld) [Volume fraction] 43.0 % Normal 37.7 - 49.0 % [facility] Hemoglobin (Bld) [Mass/Vol] 14.6 g/dL Normal 13.5 - 17.5 gm/dL [facility] MCH (RBC) [Entitic mass] 28.3 pg Normal 27.0 - 34.0 pg [facility] MCHC (RBC) [Mass/Vol] 33.9 g/dL Normal 31.4 - 36.0 gm/dL [facility] MCV (RBC) [Entitic vol] 83.3 fL Normal 80.0 - 100.0 fL [facility] Platelet mean volume (Bld) [Entitic vol] 7.4 fL Normal 6.4 - 10.8 fL [facility] Platelets (Bld) [#/Vol] 315.0 E9/L Normal 150.0 - 500.0 E9/L [facility] RBC (Bld) [#/Vol] 5.2 E12/L Normal 4.3 - 5.9 E12/L [facility] HemeAutoSS WBC corrected for nucl RBC Auto (Bld) [#/Vol] 6.6 E9/L Normal 4.0 - 11.0 E9/L [facility] eGFRon 03-23-2023 GFR/1.73 sq M.predicted among non-blacks MDRD (S/P/Bld) [Vol rate/Area] mL/min/{1.73_m2} Normal >=59 [facility] Comment on above: Order Comment: Order added by Discern Expert. Performed By: #### 2 [id number], 0981843, 2081465, [id number] #### [facility] [address] [place] [address] CBC W MANUAL DIFFon 06-21-19 ATYPICAL LYMPH # Normal [facility] Comment on above: Performed By: #### C BC #### [facility] [address] [place] [address] Dr. Wai Vallejo ATYPICAL LYMPH % Normal [facility] Comment on above: Performed By: #### C BC #### [facility] [address] [place] [address] Dr. Wai Vallejo BAND # 0.0 103/ul Normal 0.0-0.3 [facility] Comment on above: Performed By: #### C BC #### [facility] [address] [place] [address] Dr. Wai Vallejo BAND % 0 % Normal 0-5 [facility] Comment on above: Performed By: #### C BC #### [facility] [address] [place] [address] Dr. Wai Vallejo BASOM # 0.00 103/ul Normal 0.00-0.10 [facility] Comment on above: Performed By: #### C BC #### [facility] [address] [place] [address] Dr. Wai Vallejo BASOM % 0.0 % Critically low 0.2-2.0 [facility] Comment on above: Performed By: #### C BC #### [facility] [address] [address] [address] Wai Vallejo BLAST # Normal [facility] Comment on above: Performed By: #### C BC #### [facility] [address] [place] [address] Dr. Wai Vallejo BLAST % Normal [facility] Comment on above: Performed By: #### C BC #### [facility] [address] [place] [address] Dr. Wai Vallejo CORRECTED WBC Normal 4.0-11.0 [facility] Comment on above: Performed By: #### C BC #### [facility] [address] [place] [address] Dr. Wai Vallejo EOS # 0.00 103/ul Normal 0.00-0.70 [facility] Comment on above: Performed By: #### C BC #### [facility] [address] [place] [address] Dr. Wai Vallejo EOS% 0.0 % Critically low 0.9-7.0 [facility] Comment on above: Performed By: #### C BC #### [facility] [address] [place] [address] Dr. Wai Vallejo HCT 40.4 % Critically low 42.0-54.0 [facility] Comment on above: Performed By: #### C BC #### [facility] [address] [place] [address] Dr. Wai Vallejo HGB 13.8 g/dl Critically low 14.0-18.0 [facility] Comment on above: Performed By: #### C BC #### [facility] [address] [place] [address] Dr. Wai Vallejo LYMPHM # 0.62 103/ul Critically low 1.20-3.80 [facility] Comment on above: Performed By: #### C BC #### [facility] [address] [place] [address] Dr. Wai Vallejo LYMPHM% 6.0 % Critically low 20.5-60.0 [facility] Comment on above: Performed By: #### C BC #### [facility] [address] [place] [address] Dr. Wai Vallejo MCH 28.2 pg Normal 25.9-34.0 [facility] Comment on above: Performed By: #### C BC #### [facility] [address] [place] [address] Dr. Wai Vallejo MCHC 34.2 g/dl Normal 29.9-35.2 [facility] Comment on above: Performed By: #### C BC #### [facility] [address] [place] [address] Dr. Wai Vallejo MCV 82.4 fL Normal 80.0-94.0 [facility] Comment on above: Performed By: #### C BC #### [facility] [address] [place] [address] Dr. Wai Vallejo METAMYELOCYTE # Normal [facility] Comment on above: Performed By: #### C BC #### [facility] [address] [place] [address] Dr. Wai Vallejo METAMYELOCYTE % Normal [facility] Comment on above: Performed By: #### C BC #### [facility] [address] [place] [address] Dr. Wai Vallejo MONOM# 0.52 103/ul Normal 0.30-0.80 [facility] Comment on above: Performed By: #### C BC #### [facility] [address] [place] [address] Dr. Wai Vallejo MONOM% 5.0 % Normal 1.7-12.0 [facility] Comment on above: Performed By: #### C BC #### [facility] [address] [place] [address] Dr. Wai Vallejo MPV 9.6 fL Normal 9.5-13.5 [facility] Comment on above: Performed By: #### C BC #### [facility] [address] [place] [address] Dr. Wai Vallejo MYELOCYTE # Normal [facility] Comment on above: Performed By: #### C BC #### [facility] [address] [address] [address] Wai Vallejo MYELOCYTE % Normal [facility] Comment on above: Performed By: #### C BC #### [facility] [address] [address] [address] Wai Vallejo NRBC Normal [facility] Comment on above: Performed By: #### C BC #### [facility] [address] [address] [address] Wai Vallejo PLT 268 103/ul Normal 150-450 [facility] Comment on above: Performed By: #### C BC #### [facility] [address] [address] [address] Wai Vallejo RBC 4.90 106/ul Normal 4.70-6.10 [facility] Comment on above: Performed By: #### C BC #### [facility] [address] [place] [address] Dr. Wai Vallejo RDW 12.3 % Normal 11.0-15.0 [facility] Comment on above: Performed By: #### C BC #### [facility] [address] [place] [address] Dr. Wai Vallejo SEG # 9.17 103/ul Critically high 1.40-6.[address] [facility] Comment on above: Performed By: #### C BC #### [facility] [address] [place] [address] Dr. Wai Vallejo SEG % 89.0 % Critically high 43.0-75.0 [facility] Comment on above: Performed By: #### C BC #### [facility] [address] [place] [address] Dr. Wai Vallejo WBC 10.3 103/ul Normal 4.0-11.0 [facility] Comment on above: Performed By: #### C BC #### [facility] [address] [place] [address] Dr. Wai Vallejo MRI BRAIN WO CONon MRI BRAIN WO CON EXAMINATION: MRI BRAIN WO CON, 06/19/2022 1:58 PM EDT HISTORY: Headache COMPARISON: None. TECHNIQUE: MRI of the brain was performed without IV contrast. FINDINGS: CEREBRUM: No edema, hemorrhage, mass, acute infarction, or inappropriate atrophy. CEREBELLUM: No edema, hemorrhage, mass, acute infarction, or inappropriate atrophy. BRAINSTEM: No edema, hemorrhage, mass, acute infarction, or inappropriate atrophy. CSF SPACES: Ventricles, cisterns, and sulci are appropriate for age. No hydrocephalus, subarachnoid hemorrhage, or mass. SKULL: No mass or other significant visible lesion. SINUSES: Small mucocele/retention cyst within right maxillary sinus. No significant mucosal thickening or fluid levels. ORBITS: Limited views are unremarkable. OTHER: Negative. IMPRESSION: 1. No abnormal or suspicious findings of the brain. 2. Right maxillary mild chronic sinusitis. Electronically authenticated by: STEPHY DELANEY Date: 2022-06-20 08:23 Normal [facility] POINT OF CARE GLUCOSEon 05-26 Glucose [Mass/Vol] 318 mg/dL Critically high -106 [facility] Comment on above: Performed By: #### P OCGLUC #### [facility] [address] [place] [address] Dr. Wai Vallejo Glucose [Mass/Vol] 212 mg/dL Critically high [address] [place] [address] Comment on above: Performed By: #### P OCGLUC #### [facility] [address] [place] [address] Dr. Wai Vallejo Glucose [Mass/Vol] 359 mg/dL Critically high -106 [facility] Comment on above: Performed By: #### C BC #### [facility] [address] [address] [address] Wai Vallejo PROF CHEM 8 (BAS METB)on Anion gap [Moles/Vol] 12.0 mmol/L Normal [facility] Comment on above: Performed By: #### B MP #### [facility] [address] [place] [address] Dr. Wai Vallejo Calcium [Mass/Vol] 9.3 mg/dL Normal 8.5-10.[address] [facility] Comment on above: Performed By: #### B MP #### [facility] [address] [place] [address] Dr. Wai Vallejo Chloride [Moles/Vol] 104 mmol/L Normal 98-107 [facility] Comment on above: Performed By: #### B MP #### [facility] [address] [address] [address] Wai Vallejo CO2 [Moles/Vol] 28.2 mmol/L Normal 21.0-32.[address] [facility] Comment on above: Performed By: #### B MP #### [facility] [address] [address] [address] Wai Vallejo Creatinine [Mass/Vol] 0.85 mg/dL Normal 0.70-1.30 [facility] Comment on above: Performed By: #### B MP #### [facility] [address] [place] [address] Dr. Wai Vallejo EGFR-AF [facility] LUCIAN >60 Normal >=[address] [facility] Comment on above: Performed By: #### B MP #### [facility] [address] [address] [address] Wai Vallejo EGFR-NON AF [facility] LUCIAN >60 Normal >=60 [facility] Comment on above: Performed By: #### B MP #### [facility] [address] [address] [address] Wai aVllejo Glucose [Mass/Vol] 263 mg/dL Critically high 74-106 [facility] Comment on above: Performed By: #### B MP #### [facility] [address] [address] [address] Wai Vallejo Potassium [Moles/Vol] 4.2 mmol/L Normal 3.5-5.1 [facility] Comment on above: Performed By: #### B MP #### [facility] [address] [address] [address] Wai Vallejo Sodium [Moles/Vol] 140 mmol/L Normal 136-[address] [facility] Comment on above: Performed By: #### B MP #### [facility] [address] [address] [address] Wai Vallejo Urea nitrogen [Mass/Vol] 18.0 mg/dL Normal 7.0-18.0 [facility] Comment on above: Performed By: #### B MP #### [facility] [address] [place] [address] Dr. Wai Vallejo Urea nitrogen/Creatinine [Mass ratio] 21.2 mg/mg Normal [facility] Comment on above: Performed By: #### B MP #### [facility] [address] [place] [address] Dr. Wai Vallejo XR FOREIGN BODY EYEon 2022 XR FOREIGN BODY EYE EXAMINATION: XR FOREIGN BODY EYE HISTORY: Foreign body in eye COMPARISON: No relevant comparison available. FINDINGS: ORBITS: Negative for a metallic foreign body. OTHER: Negative. IMPRESSION: 1. No metallic foreign body within the orbits. Electronically authenticated by: STEPHY DELANEY Date: 2022-06-20 07:54 Normal [facility] CBC AUTO DIFFon 06-19-2022 BASO # 0.0 103/ul Normal 0.0-0.1 [facility] Comment on above: Performed By: #### C BC #### [facility] [address] [place] [address] Dr. Wai Vallejo Basophils/100 WBC (Bld) 0.4 % Normal 0.2-2.0 [facility] Comment on above: Performed By: #### C BC #### [facility] [address] [place] [address] Dr. Wai Vallejo EO # 0.0 103/ul Normal 0.0-0.7 [facility] Comment on above: Performed By: #### C BC #### [facility] [address] [place] [address] Dr. Wai Vallejo Eosinophils/100 WBC (Bld) 0.4 % Critically low 0.9-7.0 [facility] Comment on above: Performed By: #### C BC #### [facility] [address] [place] [address] Dr. Wai Vallejo Erythrocyte distribution width (RBC) [Ratio] 12.3 % Normal 11.0-15.0 [facility] Comment on above: Performed By: #### C BC #### [facility] [address] [place] [address] Dr. Wai Vallejo Hematocrit (Bld) [Volume fraction] 43.7 % Normal 42.0-54.0 [facility] Comment on above: Performed By: #### C BC #### [facility] [address] [place] [address] Dr. Wai Vallejo Hemoglobin (Bld) [Mass/Vol] 15.1 g/dL Normal 14.0-18.0 [facility] Comment on above: Performed By: #### C BC #### [facility] [address] [place] [address] Dr. Wai Vallejo IG # 0.01 10e3/ul Normal 0.00-0.03 [facility] Comment on above: Performed By: #### C BC #### [facility] [address] [place] [address] Dr. Wai Vallejo IG % 0.1 % Normal 0.0-0.5 [facility] Comment on above: Performed By: #### C BC #### [facility] [address] [place] [address] Dr. Wai Vallejo LYMPH # 1.2 103/ul Normal 1.2-3.8 [facility] Comment on above: Performed By: #### C BC #### [facility] [address] [place] [address] Dr. Wai Vallejo Lymphocytes/100 WBC (Bld) 14.6 % Critically low 20.5-60.0 [facility] Comment on above: Performed By: #### C BC #### [facility] [address] [place] [address] Dr. Wai Vallejo MANUAL DIFF REQ NO Normal [facility] Comment on above: Performed By: #### C BC #### [facility] [address] [place] [address] Dr. Wai Vallejo MCH (RBC) [Entitic mass] 28.3 pg Normal 25.9-34.0 [facility] Comment on above: Performed By: #### C BC #### [facility] [address] [place] [address] Dr. Wai Vallejo MCHC (RBC) [Mass/Vol] 34.6 g/dL Normal 29.9-35.2 [facility] Comment on above: Performed By: #### C BC #### [facility] [address] [place] [address] Dr. Wai Vallejo MCV (RBC) [Entitic vol] 81.8 fL Normal 80.0-94.0 [facility] Comment on above: Performed By: #### C BC #### [facility] [address] [place] [address] Dr. Wai Vallejo MONO # 0.5 103/ul Normal 0.3-0.8 [facility] Comment on above: Performed By: #### C BC #### [facility] [address] [place] [address] Dr. Wai Vallejo Monocytes/100 WBC (Bld) 6.5 % Normal 1.7-12.0 [facility] Comment on above: Performed By: #### C BC #### [facility] [address] [place] [address] Dr. Wai Vallejo NEUT # 6.5 103/ul Normal 1.4-6.5 [facility] Comment on above: Performed By: #### C BC #### [facility] [address] [place] [address] Dr. Wai Vallejo Neutrophils/100 WBC (Bld) 78.0 % Critically high 43.0-75.0 [facility] Comment on above: Performed By: #### C BC #### [facility] [address] [place] [address] Dr. Wai Vallejo Platelet mean volume (Bld) [Entitic vol] 9.0 fL Critically low 9.5-13.5 [facility] Comment on above: Performed By: #### C BC #### [facility] [address] [place] [address] Dr. Wai Vallejo PLT 310 103/ul Normal 150-450 [facility] Comment on above: Performed By: #### C BC #### [facility] [address] [place] [address] Dr. Wai Vallejo RBC 5.34 106/ul Normal 4.70-6.10 [facility] Comment on above: Performed By: #### C BC #### [facility] [address] [place], [place] [address] Dr. Wai Vallejo WBC 8.3 103/ul Normal 4.0-11.0 [facility] Comment on above: Performed By: #### C BC #### [facility] [address] [place], [place] [address] STROKE HEAD WOon 06-20-[address] STROKE HEAD WO HEAD CT WITHOUT CONTRAST: 06/19/2022 10:22 AM EDT Clinical Data: Headache Comparison: No previous Unenhanced axial data from base to vertex. INTRA-AXIAL: No acute hemorrhage. No acute infarction is evident. EXTRA-AXIAL: No acute hemorrhage. No focal fluid collection. BRAIN VOLUME: Unremarkable for age. VENTRICLES: No hydrocephalus PARANASAL SINUSES: No air-fluid levels in the included aspects. MASTOIDS: Clear. CALVARIUM: No acute finding. EXTRACALVARIAL: No acute findings IMPRESSION: 1. No evidence of acute intracranial process on this unenhanced study as described. All CT scans at this facility use dose modulation, iterative reconstruction, and/or weight based dosing when appropriate to reduce radiation dose to as low as reasonably achievable. Electronically authenticated by: CHAVA ARMSTRONG Date: 2022-06-19 10:49 Normal [facility] CTA NECK WO W CONon 06-20-19 23 CTA NECK WO W CON EXAMINATION: CTA HEAD WO W CON, CTA NECK WO W CON HISTORY: Malignant hypertension, headache. Hypertension. COMPARISON: CT head without contrast, 06/19/2022. TECHNIQUE: Postcontrast axial CTA images obtained through the head and neck. Reconstructions obtained in the sagittal and coronal planes. MIP (maximum intensity projection) images were performed. Dose reduction techniques were achieved by using automated exposure control and/or adjustment of mA and/or kV according to patient size and/or use of iterative reconstruction technique. FINDINGS: CTA BRAIN: Distal internal carotid arteries are normal. Anterior cerebral arteries normal. Middle cerebral arteries are normal. Distal vertebral arteries are normal. Basilar artery normal. Cerebellar arteries are normal. Posterior cerebral arteries normal. No proximal arterial stenosis or occlusion. No aneurysm. No vascular reformation. CTA NECK: Origins of the great vessels from the aortic arch are normal. Common carotid arteries are normal in caliber. Carotid bifurcations are normal. No internal carotid artery stenosis. Vertebral arteries are normal. No acute dissection. No neck mass. No lymphadenopathy in the neck. Lung apices are clear. Osseous structures unremarkable. IMPRESSION: 1. Normal CTA of the brain. 2. Normal CTA of the neck. Electronically authenticated by: ALFONSO BELL Date: 2022-06-19 15:35 Normal [facility] Covid-19 PCR (CVDTB)on 05-26 SARS-CoV-2 (COVID-19) RNA TC+probe Ql (Unsp spec) Not detected Normal NOT DETECTED [facility] Comment on above: Result Comment: When diagnostic testing is negative, the possibility of a false negative should be considered in the context of a patient's recent exposures and the presence of clinical signs and symptoms consistent with SARS-CoV-2. This test is not yet approved or cleared by the [place] FDA. When there are no FDA-approved or cleared tests available, and other criteria are met, FDA can make tests available under an emergency access mechanism called an Emergency Use Authorization (EUA). The EUA for this test is supported by the [place] of Health and Human Service's declaration that circumstances exist to justify the emergency use of in vitro diagnostics for the detection and/or diagnosis of the virus that causes COVID-19. This EUA will remain in effect for the duration of the COVID-19 declaration justifying emergency of IVDs, unless it is terminated or revoked by the FDA (after which the test may no longer be used). Performed By: #### C BC #### [facility] [address] [address] [address] Wai Vallejo POINT OF CARE GLUCOSEon 05-26 Glucose [Mass/Vol] 511 mg/dL Critically high 74-106 [facility] Comment on above: Result Comment: Will Repeat Test Performed By: #### P OCGLUC #### [facility] [address] [address] [address] Wai Vallejo Glucose [Mass/Vol] 489 mg/dL Critically high 74-106 [facility] Comment on above: Performed By: #### P OCGLUC #### [facility] [address] [address] [address] Wai Vallejo Glucose [Mass/Vol] 361 mg/dL Critically high 74-106 [facility] Comment on above: Performed By: #### C BC #### [facility] [address] [place] [address] Dr. Wai Vallejo PROF 14(COMP METB)on 023 Albumin [Mass/Vol] 4.1 g/dL Normal 3.4-5.[address] [facility] Comment on above: Performed By: #### C MP #### [facility] [address] [place] [address] Dr. Wai Vallejo Albumin/Globulin [Mass ratio] 1.2 {ratio} Normal [facility] Comment on above: Performed By: #### C MP #### [facility] [address] [place] [address] Dr. Wai Vallejo ALP [Catalytic activity/Vol] 68 U/L Normal 46-116 [facility] Comment on above: Performed By: #### C MP #### [facility] [address] [place] [address] Dr. Wai Vallejo ALT [Catalytic activity/Vol] 33 U/L Normal 16-63 [facility] Comment on above: Performed By: #### C MP #### [facility] [address] [place] [address] Dr. Wai Vallejo Anion gap [Moles/Vol] 13.4 mmol/L Normal [facility] Comment on above: Performed By: #### C MP #### [facility] [address] [place] [address] Dr. Wai Vallejo AST [Catalytic activity/Vol] 21 U/L Normal 15-37 [facility] Comment on above: Performed By: #### C MP #### [facility] [address] [place] [address] Dr. Wai Vallejo Bilirubin [Mass/Vol] 1.5 mg/dL Critically high 0.2-1.0 [facility] Comment on above: Performed By: #### C MP #### [facility] [address] [place], [place] [id number] Dr. Wai Vallejo Calcium [Mass/Vol] 9.3 mg/dL Normal 8.5-10.[address] [facility] Comment on above: Performed By: #### C MP #### [facility] [address] [place] [address] Dr. Wai Vallejo Chloride [Moles/Vol] 99 mmol/L Normal 98-107 [facility] Comment on above: Performed By: #### C MP #### [facility] [address] [address] [address] Wai Vallejo CO2 [Moles/Vol] 23.9 mmol/L Normal 21.0-32.[address] [facility] Comment on above: Performed By: #### C MP #### [facility] [address] [place] [address] Dr. Wai Vallejo Creatinine [Mass/Vol] 0.87 mg/dL Normal 0.70-1.30 [facility] Comment on above: Performed By: #### C MP #### [facility] [address] [place] [address] Dr. Wai Vallejo EGFR-AF [facility] LUCIAN >60 Normal >=[address] [facility] Comment on above: Performed By: #### C MP #### [facility] [address] [place] [address] Dr. Wai Vallejo EGFR-NON AF [facility]CIAN >60 Normal >=60 [facility] Comment on above: Performed By: #### C MP #### [facility] [address] [place] [address] Dr. Wai Vallejo Globulin (S) [Mass/Vol] 3.5 g/dL Normal [facility] Comment on above: Performed By: #### C MP #### [facility] [address] [address] [address] Wai Vallejo Glucose [Mass/Vol] 306 mg/dL Critically high 74-106 [facility] Comment on above: Performed By: #### C MP #### [facility] [address] [place] [address] Dr. Wai Vallejo Potassium [Moles/Vol] 3.3 mmol/L Critically low 3.5-5.1 [facility] Comment on above: Performed By: #### C MP #### [facility] [address] [place] [address] Dr. Wai Vallejo Protein [Mass/Vol] 7.6 g/dL Normal 6.4-8.[address] [facility] Comment on above: Performed By: #### C MP #### [facility] [address] [place] [address] Dr. Wai Vallejo Sodium [Moles/Vol] 133 mmol/L Critically low 136-145 [facility] Comment on above: Performed By: #### C MP #### [facility] [address] [place] [address] Dr. Wai Vallejo Urea nitrogen [Mass/Vol] 13.0 mg/dL Normal 7.0-18.0 [facility] Comment on above: Performed By: #### C MP #### [facility] [address] [place] [address] Dr. Wai Vallejo Urea nitrogen/Creatinine [Mass ratio] 14.9 mg/mg Normal [facility] Comment on above: Performed By: #### C MP #### [facility] [address] [place] [address] Dr. Wai Vallejo PROTIMEon 06-19-2022 INR Coag (PPP) [Relative time] 0.93 {INR} Normal [facility] Comment on above: Performed By: #### P TT, PT #### [facility] [address] [place] [address] Dr. Wai Vallejo INR GUIDELINES SEE BELOW Normal [facility] Comment on above: Result Comment: JUANCHO RED INR: 2.0 - 3.0 CONDITIONS NOT LISTED BELOW 2.5 - 3.5 FOR PROSTHETIC HEART VALVE REPLACEMENT 2.5 - 3.5 RECURRENT THROMBOSIS Performed By: #### P TT, PT #### [facility] [address] [place] [address] Dr. Wai Vallejo PT Coag (PPP) [Time] 9.9 s Normal 9.0-11.6 [facility] Comment on above: Performed By: #### P TT, PT #### [facility] [address] [place] [address] Dr. Wai Vallejo PTTon 06-19-2022 aPTT Coag (Bld) [Time] 25.2 s Normal 22.3-36.2 [facility] Comment on above: Performed By: #### P TT, PT #### [facility] [address] [place] [address] Dr. Wai Vallejo TESTOSTERONE, TOTALon 2021 Testosterone [Mass/Vol] 421 ng/dL Normal 264-916 [facility] Comment on above: Result Comment: Adul t male reference interval is based on a population of healthy nonobese males (BMI <30) between 19 and 39 years old. Pillo et.al. JCEM 2017,102;2360-9385. PMID: [id number]. Performed By: #### T ESTTOT #### [facility] [address] [place] [address] Dr. Wai Vallejo CBC AUTO DIFFon 02-19-2022 BASO # 0.0 103/ul Normal 0.0-0.1 [facility] Comment on above: Performed By: #### C BC #### [facility] [address] [place] [address] Dr. Wai Vallejo Basophils/100 WBC (Bld) 0.4 % Normal 0.2-2.0 [facility] Comment on above: Performed By: #### C BC #### [facility] [address] [place] [address] Dr. Wai Vallejo EO # 0.2 103/ul Normal 0.0-0.7 [facility] Comment on above: Performed By: #### C BC #### [facility] [address] [place] [address] Dr. Wai Vallejo Eosinophils/100 WBC (Bld) 2.6 % Normal 0.9-7.0 [facility] Comment on above: Performed By: #### C BC #### [facility] [address] [place] [address] Dr. Wai Vallejo Erythrocyte distribution width (RBC) [Ratio] 12.2 % Normal 11.0-15.0 [facility] Comment on above: Performed By: #### C BC #### [facility] [address] [place] [address] Dr. Wai Vallejo Hematocrit (Bld) [Volume fraction] 43.0 % Normal 42.0-54.0 [facility] Comment on above: Performed By: #### C BC #### [facility] [address] [place] [address] Dr. Wai Vallejo Hemoglobin (Bld) [Mass/Vol] 14.7 g/dL Normal 14.0-18.0 [facility] Comment on above: Performed By: #### C BC #### [facility] [address] [place] [address] Dr. Wai Vallejo IG # 0.02 10e3/ul Normal 0.00-0.03 [facility] Comment on above: Performed By: #### C BC #### [facility] [address] [place] [address] Dr. Wai Vallejo IG % 0.3 % Normal 0.0-0.5 [facility] Comment on above: Performed By: #### C BC #### [facility] [address] [place] [address] Dr. Wai Vallejo LYMPH # 1.4 103/ul Normal 1.2-3.8 [facility] Comment on above: Performed By: #### C BC #### [facility] [address] [place] [address] Dr. Wai Vallejo Lymphocytes/100 WBC (Bld) 19.8 % Critically low 20.5-60.0 [facility] Comment on above: Performed By: #### C BC #### [facility] [address] [place] [address] Dr. Wai Vallejo MANUAL DIFF REQ NO Normal [facility] Comment on above: Performed By: #### C BC #### [facility] [address] [place] [address] Dr. Wai Vallejo MCH (RBC) [Entitic mass] 28.5 pg Normal 25.9-34.0 [facility] Comment on above: Performed By: #### C BC #### [facility] [address] [address] [address] Wai Vallejo MCHC (RBC) [Mass/Vol] 34.2 g/dL Normal 29.9-35.2 [facility] Comment on above: Performed By: #### C BC #### [facility] [address] [address] [address] Wai Vallejo MCV (RBC) [Entitic vol] 83.5 fL Normal 80.0-94.0 [facility] Comment on above: Performed By: #### C BC #### [facility] [address] [place] [address] Dr. Wai Vallejo MONO # 0.5 103/ul Normal 0.3-0.8 [facility] Comment on above: Performed By: #### C BC #### [facility] [address] [place] [address] Dr. Wai Vallejo Monocytes/100 WBC (Bld) 6.9 % Normal 1.7-12.0 [facility] Comment on above: Performed By: #### C BC #### [facility] [address] [place] [address] Dr. Wai Vallejo NEUT # 5.1 103/ul Normal 1.4-6.5 [facility] Comment on above: Performed By: #### C BC #### [facility] [address] [place] [address] Dr. Wai Vallejo Neutrophils/100 WBC (Bld) 70.0 % Normal 43.0-75.0 [facility] Comment on above: Performed By: #### C BC #### [facility] [address] [place] [address] Dr. Wai Vallejo Platelet mean volume (Bld) [Entitic vol] 9.1 fL Critically low 9.5-13.5 [facility] Comment on above: Performed By: #### C BC #### [facility] [address] [place] [address] Dr. Wai Vallejo PLT 283 103/ul Normal 150-450 [facility] Comment on above: Performed By: #### C BC #### [facility] [address] [address] [address] Wai Vallejo RBC 5.15 106/ul Normal 4.70-6.10 [facility] Comment on above: Performed By: #### C BC #### [facility] [address] [address] [address] Wai Vallejo WBC 7.3 103/ul Normal 4.0-11.0 [facility] Comment on above: Performed By: #### C BC #### [facility] [address] [place] [address] Dr. Wai Vallejo GLYCOHEMOGLOBIN A1Con 2021 ADA RECOMMENDATION SEE BELOW Normal [facility] Comment on above: Result Comment: ADA RECOMMENDED LIMIT 4.0 - 6.0 ADA THERAPEUTIC TARGET < 7.0 ACTION SUGGESTED > 7.0 Performed By: #### A 1C #### [facility] [address] [place] [address] Dr. Wai Vallejo Glucose [Mass/Vol] 177 mg/dL Normal [facility] Comment on above: Performed By: #### A 1C #### [facility] [address] [place] [address] Dr. Wai Vallejo HbA1c (Bld) [Mass fraction] 7.8 % Critically high 4.5-6.2 [facility] Comment on above: Performed By: #### A 1C #### [facility] [address] [place] [address] Dr. Wai Vallejo LIPID PROFILEon 02-19-2022 CHOL-HDL RATIO NORM SEE BELOW Normal [facility] Comment on above: Result Comment: 3.3 - 4.4 LOW RISK 4.4 - 7.1 AVERAGE RISK 7.1 - 11.0 MODERATE RISK >11.0 HIGH RISK Performed By: #### C MP, LIPID #### [facility] [address] [place] [address] Dr. Wai Vallejo Cholesterol [Mass/Vol] 153 mg/dL Normal <=200 [facility] Comment on above: Performed By: #### C MP, LIPID #### [facility] [address] [place] [address] Dr. Wai Vallejo Cholesterol in HDL [Mass/Vol] 41 mg/dL Normal 40-60 [facility] Comment on above: Performed By: #### C MP, LIPID #### [facility] [address] [address] [address] Wai Vallejo Cholesterol in LDL [Mass/Vol] 75.4 mg/dL Normal [facility] Comment on above: Performed By: #### C MP, LIPID #### [facility] [address] [address] [address] Wai Vallejo Cholesterol.total/Cho lesterol in HDL [Mass ratio] 3.7 {ratio} Normal [facility] Comment on above: Performed By: #### C MP, LIPID #### [facility] [address] [address] [address] Wai Vallejo HDL NORMAL > or = 60 mg/dl - LOW CARDIOVASCULAR RISK <40 mg/dl - HIGH CARDIOVASCULAR RISK Normal [facility] Comment on above: Performed By: #### C MP, LIPID #### [facility] [address] [place] [address] Dr. Wai Vallejo LDL CALC NORMAL SEE BELOW Normal [facility] Comment on above: Result Comment: <100 mg/dl OPTIMAL 100 - 129 mg/dl NEAR OR ABOVE OPTIMAL 130 - 159 mg/dl BORDERLINE HIGH 160 - 189 mg/dl HIGH >190 mg/dl VERY HIGH Performed By: #### C MP, LIPID #### [facility] [address] [address] [address] Wai Vallejo Triglyceride [Mass/Vol] 183 mg/dL Critically high <=150 [facility] Comment on above: Performed By: #### C MP, LIPID #### [facility] [address] [address] [address] Wai Vallejo VLDL CALC 36.6 mg/dL Normal [facility] Comment on above: Performed By: #### C MP, LIPID #### [facility] [address] [address] [address] Wai Vallejo MICROALBUMIN, RAND URon 11-2 mALB <1.3 Normal <=30.0 [facility] Comment on above: Performed By: #### M ALBR #### [facility] [address] [address] [address] Wai Vallejo PROF 14(COMP METB)on 022 Albumin [Mass/Vol] 3.7 g/dL Normal 3.4-5.[address] [facility] Comment on above: Performed By: #### C MP, LIPID #### [facility] [address] [place] [address] Dr. Wai Vallejo Albumin/Globulin [Mass ratio] 1.0 {ratio} Normal [facility] Comment on above: Performed By: #### C MP, LIPID #### [facility] [address] [place] [address] Dr. Wai Vallejo ALP [Catalytic activity/Vol] 53 U/L Normal 46-116 [facility] Comment on above: Performed By: #### C MP, LIPID #### [facility] [address] [place] [address] Dr. Wai Vallejo ALT [Catalytic activity/Vol] 32 U/L Normal 16-63 [facility] Comment on above: Performed By: #### C MP, LIPID #### [facility] [address] [place] [address] Dr. Wai Vallejo Anion gap [Moles/Vol] 10.0 mmol/L Normal [facility] Comment on above: Performed By: #### C MP, LIPID #### [facility] [address] [place] [address] Dr. Wai Vallejo AST [Catalytic activity/Vol] 17 U/L Normal 15-37 [facility] Comment on above: Performed By: #### C MP, LIPID #### [facility] [address] [place] [address] Dr. Wai Vallejo Bilirubin [Mass/Vol] 1.5 mg/dL Critically high 0.2-1.0 [facility] Comment on above: Performed By: #### C MP, LIPID #### [facility] [address] [place] [address] Dr. Wai Vallejo Calcium [Mass/Vol] 9.0 mg/dL Normal 8.5-10.[address] [facility] Comment on above: Performed By: #### C MP, LIPID #### [facility] [address] [address] [address] Wai Vallejo Chloride [Moles/Vol] 101 mmol/L Normal 98-107 [facility] Comment on above: Performed By: #### C MP, LIPID #### [facility] [address] [address] [address] Wai Vallejo CO2 [Moles/Vol] 30.0 mmol/L Normal 21.0-32.[address] [facility] Comment on above: Performed By: #### C MP, LIPID #### [facility] [address] [place] [address] Dr. Wai Vallejo Creatinine [Mass/Vol] 0.81 mg/dL Normal 0.70-1.30 [facility] Comment on above: Performed By: #### C MP, LIPID #### [facility] [address] [place] [address] Dr. Wai Vallejo EGFR-AF [facility] LUCIAN >60 Normal >=[address] [facility] Comment on above: Performed By: #### C MP, LIPID #### [facility] [address] [place] [address] Dr. Wai Vallejo EGFR-NON AF [facility] LUCIAN >60 Normal >=60 [facility] Comment on above: Performed By: #### C MP, LIPID #### [facility] [address] [place] [address] Dr. Wai Vallejo Globulin (S) [Mass/Vol] 3.6 g/dL Normal [facility] Comment on above: Performed By: #### C MP, LIPID #### [facility] [address] [place] [address] Dr. Wai Vallejo Glucose [Mass/Vol] 192 mg/dL Critically high 74-106 [facility] Comment on above: Performed By: #### C MP, LIPID #### [facility] [address] [place] [address] Dr. Wai Vallejo Potassium [Moles/Vol] 4.0 mmol/L Normal 3.5-5.1 [facility] Comment on above: Performed By: #### C MP, LIPID #### [facility] [address] [address] [address] Wai Vallejo Protein [Mass/Vol] 7.3 g/dL Normal 6.4-8.[address] [facility] Comment on above: Performed By: #### C MP, LIPID #### [facility] [address] [address] [address] Wai Vallejo Sodium [Moles/Vol] 137 mmol/L Normal 136-[address] [facility] Comment on above: Performed By: #### C MP, LIPID #### [facility] [address] [address] [address] Wai Vallejo Urea nitrogen [Mass/Vol] 13.0 mg/dL Normal 7.0-18.0 [facility] Comment on above: Performed By: #### C MP, LIPID #### [facility] [address] [address] [address] Wai Vallejo Urea nitrogen/Creatinine [Mass ratio] 16.0 mg/mg Normal [facility] Comment on above: Performed By: #### C MP, LIPID #### [facility] [address] [address] [address] Wai Martinez 09-23-2020 LUIS FERNANDO Telephone (GLQ) ---- KARENCHAVA Lexy MEJIA ([id number]) 1970 M Date Time Provider Department 09/23/20 KISHA KERR (LYDIA) GLQ During your visit today, we recorded the following information about you: Kisha Kerr 09/23/2020 11:10 AM Signed Spoke to Mr. Jones to offer a surgery date for IPP. Patient states that he does not wish to have the surgery at this time. Dr. Landrum notified. Kisha Kerr RN Allergies As of Date: 09/23/2020 (No Known Allergies) Date Reviewed: 08/03/2020 Reviewed by: Buck Landrum MD - Fully Assessed Reason for Visit: [place] - Other [3602] Prescriptions as of 09/23/2020 Sig: ALPRAZOLAM 0.25 MG TABLET Take 0.25 mg by mouth. ATORVASTATIN 80 MG TABLET ONETOUCH ULTRA BLUE TEST STRIP FREESTYLE LITE METER KIT USE TO TEST HOME BLOOD SUGAR * FREESTYLE LITE STRIPS TEST WITH 1 STRIP DAILY NE* CITALOPRAM 20 MG TABLET GLIMEPIRIDE 2 MG TABLET FREESTYLE LANCETS 28 GAUGE USE TO TEST HOME BLOOD SUGAR * METFORMIN 1,000 MG TABLET OMEPRAZOLE 40 MG CAPSULE,DANIEL* TAKE 1 CAPSULE ON EMPTY STOMA* SILDENAFIL 100 MG TABLET Take 100 mg by mouth. SITAGLIPTIN 50 MG-METFORMIN 1* Take by mouth. Problem List As Of Date 09/23/2020 Noted Resolved ED (erectile dysfunction) of organic origin [N5*08/03/2020 Peyronie's disease [N48.6] 08/03/2020 Encounter Status:Closed by KISHA KERR on 09/23/20 [facility] CNOVon 08-03-2020 CNOV Office Visit (UROLMN) ---- CHAVA JONES JR ([id number]) 1970 M Date Time Provider Department 08/03/20 10:00 AM BUCK LANDRUM UROLMBrenda During your visit today, we recorded the following information about you: Pulse Blood pressure Weight 98/minute 146/92 86.2 kg Buck Landrum MD 08/03/2020 10:35 AM Signed [facility] NEW PATIENT HISTORY AND PHYSICAL EXAM PATIENT INFO: Chava Jones JR 50 year old REFERRING M.D.: Adam Ayoub [id number] [facility] [id number] This consult was requested by Dr. Ayoub for an opinion regarding Peyronie's disease, and my final recommendations will be communicated to the requesting health care provider by way of the shared medical record for internal providers or letter via the [employer] for external providers. HISTORY CHIEF COMPLAINT: peyronie's HPI: Per OV with Dr. Ayoub- [employer]INE[employer] referred to our office by Dr. Hernandez due to ED issues. Pt states that he has tried Sildenafil in the past with minimal improvement. Pt denies any infections in the past year. Pt does have Diabetes. He states that he has noticed an increased curvature with pain. He had a slight curve starting in 2019 but it has slowly progressed over the past 2 years. Pt has noticed a yellow tint to semen starting this past Monday. Pt is unsure if he has ever had a PSA done. Assessment/Plan 1. Peyronie disease (N48.6: Induration penis plastica) Rt. curvature that has progressed over the past two years. Pt. also states having pain w/ erections. No plaques noticed from today's exam. Pt. would like a referral to see specialist in [facility] to discuss options. All questions/concerns were discussed. Pt. to call the office if heencounters any issues prior. Pt. acknowledges understanding. 2. ED (erectile dysfunction) (N52.9: Male erectile dysfunction, unspecified) Pt. is taking Sildenafil 100mg prn. he is able to have intercourse but it is difficult now. 3. BPH with urinary obstruction (N40.1: Benign prostatic hyperplasia with lower urinary tract symptoms) Pt. is not on any BPH meds. at this time and is doing well overall w/ his urination w/ no bothersome symptoms. PDRE today - 35gms, no hard nodules. Pt. is to obtain PSA soon. I have reviewed the previous health record information and history for this pt. from Dr. Ayoub UA 1+ glucose due to DM II MEDICATIONS: Current Outpatient Medications Medication Sig - ALPRAZolam (XANAX) 0.25 mg tablet Take 0.25 mg by mouth. - atorvastatin (LIPITOR) 80 mg tablet - blood sugar diagnostic (ONETOUCH ULTRA TEST STRIP) test strip - FREESTYLE LITE METER monitoring kit USE TO TEST HOME BLOOD SUGAR ONCE EVERY DAY - FREESTYLE LITE STRIPS test strip TEST WITH 1 STRIP DAILY NEEDED - citalopram (CELEXA) 20 mg tablet - glimepiride (AMARYL) 2 mg tablet - FREESTYLE LANCETS 28 gauge USE TO TEST HOME BLOOD SUGAR ONCE DAILY - metFORMIN (GLUCOPHAGE) 1,000 mg tablet - omeprazole (PRILOSEC) 40 mg capsule TAKE 1 CAPSULE ON EMPTY STOMACH FOLLOWED IN 30 MINUTES BY BREAKFAST - sildenafil (VIAGRA) 100 mg tablet Take 100 mg by mouth. - SITagliptin-metFORM IN (JANUMET) 50-1,000 mg per tablet Take by mouth. No current facility-administer ed medications for this visit. MEDICATION ALLERGIES: ALLERGIES No Known Allergies No past medical history on file. No past surgical history on file. FAMILY HISTORY: NEGATIVE: No related previous family history. Social History Tobacco Use - Smoking status: Never Smoker - Smokeless tobacco: Former User Substance Use Topics - Alcohol use: Not on file - Drug use: Not on file REVIEW OF SYSTEMS: Constitutional: +unintentional 11 lb weight loss- unsure of reason Eyes: negative Ear Nose and Throat: negative Cardiovascular: negative Respiratory: negative Gastrointestinal: +constipation, diarrhea, reflux- on medications Musculoskeletal: negative Integumentary: negative Neurological: negative Psychiatric: negative Endocrine: +DM II Hematologic/Lymphat ic: negative Allergic/Immunologi c: negative HPI: 50 year old male who presents today for Peyronie's disease. He states curvature worsened around 3-4 months ago per pt, congenital curvature to the right but states symptoms worsened around a year ago. He states curve is now 45 degrees to the right. He states pain with intercourse around 3 months ago and states 10/10 rigdity before injury. He endorses DM II. He states ED and he had erections before worsened curve. He states 3/10 rigidity currently. He has tried sildenafil which gave him BORGES and didn't improve his erections. He denies trying Cialis. He states intact climax and ejaculation. Patient has his pros (more content not included)... Normal [facility] Urinalysison 08-03-2020 Bilirubin, Urine Negative Normal Negative [facility] Comment on above: Performed By: #### U A #### [id number] [phone] Clarity (U) Clear Normal Clear [facility] Comment on above: Performed By: #### U A #### [address] [phone] Color (U) Light Yellow Critically abnormal Yellow [facility] Comment on above: Performed By: #### U A #### [address] [phone] Comments SEE COMMENT Normal [facility] Comment on above: Result Comment: Micr oscopic not warranted Performed By: #### U A #### [address] [address] Glucose Ql (U) 1+ mg/dL Critically abnormal Negative [facility] Comment on above: Performed By: #### U A #### [address] [phone] Hemoglobin/Blood,Ur Negative Normal Negative [facility] Comment on above: Performed By: #### U A #### [address] [phone] Ketones Ql (U) Negative Normal Negative [facility] Comment on above: Performed By: #### U A #### [address] [address] Leukest Negative Normal Negative [facility] Comment on above: Performed By: #### U A #### [address] [phone] Nitrite Ql (U) Negative Normal Negative [facility] Comment on above: Performed By: #### U A #### [address] [address] pH (U) 5.5 [pH] Normal 5.0-8.0 [facility] Comment on above: Performed By: #### U A #### [address] [phone] Protein, Urine Negative Normal Negative [facility] Comment on above: Performed By: #### U A #### [address] [place] [phone] Specific [place], Ur 1.010 Normal 1.005-1.030 [facility] Comment on above: Performed By: #### U A #### [address] [phone] Urine Amilcar Comment SEE COMMENT Normal [facility] Comment on above: Result Comment: N/A Performed By: #### U A #### [address] [place] [phone] Urobilinogen (U) [Mass/Vol] Negative Normal Negative [facility] Comment on above: Performed By: #### U A #### [address] [place] [phone] Vital Signs Date Time Vital Sign Value Performing Clinician Facility 04-07-2023 12:06-0500 Heart rate 71 /min [facility]aver[facility] 04-07-2023 12:06-0500 SaO2% (BldA) [Mass fraction] 98 % [facility]avera [facility] 04-07-2023 12:06-0500 Diastolic blood pressure 64 mm[Hg] [facility] 04-07-2023 12:06-0500 Mean blood pressure 78 mm[Hg] [facility] 04-07-2023 12:06-0500 Systolic blood pressure 105 mm[Hg] [facility]avera [facility] 04-07-2023 12:06-0500 Respiratory rate 16 /min [facility]avera [facility] 04-07-2023 11:16-0500 Heart rate 70 /min [facility] Tavera [facility] 04-07-2023 11:16-0500 SaO2% (BldA) [Mass fraction] 95 % [facility] Tavera [facility] 04-07-2023 11:14-0500 Respiratory rate 16 /min [facility] Tavera [facility] 04-07-2023 11:14-0500 Body temperature 97.34 [degF] [facility] 04-07-2023 11:13-0500 Diastolic blood pressure 79 mm[Hg] [facility]avera [facility] 04-07-2023 11:13-0500 Mean blood pressure 95 mm[Hg] [facility]avera [facility] 04-07-2023 11:13-0500 Systolic blood pressure 127 mm[Hg] [facility] Tavera [facility] 04-07-2023 11:00-0500 Diastolic blood pressure 80 mm[Hg] Zen Brown [facility] 04-07-2023 11:00-0500 Mean blood pressure 92 mm[Hg] Zen Brown [facility] 04-07-2023 11:00-0500 Respiratory rate 14 /min [facility]aver[facility] 04-07-2023 11:00-0500 SaO2% (BldA) [Mass fraction] 92 % [facility] Tavera [facility] 04-07-2023 11:00-0500 Systolic blood pressure 117 mm[Hg] Zen Brown [facility] 04-07-2023 10:50-0500 Mean blood pressure 98 mm[Hg] Zen Tavera [facility] 04-07-2023 10:50-0500 Respiratory rate 12 /min Zen Tavera [facility] 04-07-2023 10:45-0500 Mean blood pressure 90 mm[Hg] Zen Tavera [facility] 04-07-2023 10:45-0500 Respiratory rate 12 /min Zen [employer] [facility] 04-07-2023 10:35-0500 Body temperature 97.16 [degF] Zen [employer] [facility] 04-07-2023 07:37-0500 Mean blood pressure 91 mm[Hg] Zen Tavera [facility] 04-07-2023 07:37-0500 Blood Pressure Location Zen Tavera [facility] 04-07-2023 07:36-0500 Respiratory rate 16 /min Zen Tavera [facility] 04-07-2023 07:36-0500 Body temperature 97.52 [degF] Zen Brown [facility] 04-07-2023 07:36-0500 Heart rate 66 /min Zen Brown [facility] 04-07-2023 07:35-0500 Blood Pressure Location Zen [employer] [facility] 03-23-2023 08:29-0500 Diastolic blood pressure 87 mm[Hg] Zen Tavera [facility] 03-23-2023 08:29-0500 Heart rate 64 /min Zen Tavera [facility] 03-23-2023 08:29-0500 Mean blood pressure 107 mm[Hg] Zen Tavera [facility] 03-23-2023 08:29-0500 Systolic blood pressure 147 mm[Hg] Zen Tavera [facility] 03-23-2023 08:29-0500 Heart rate 74 /min Zen Tavera [facility] 03-23-2023 08:29-0500 SaO2% (BldA) [Mass fraction] 99 % Zen Tavera [facility] 03-23-2023 08:28-0500 Respiratory rate 18 /min Zen Tavera [facility] 03-23-2023 08:28-0500 Body temperature 97.88 [degF] Zen Tavera [facility] 03-23-2023 08:28-0500 Diastolic blood pressure 88 mm[Hg] Zen Tavera [facility] 03-23-2023 08:28-0500 Mean blood pressure 109 mm[Hg] Zen Tavera [facility] 03-23-2023 08:28-0500 Systolic blood pressure 151 mm[Hg] Zen Tavera [facility] 03-03-2023 08:45-0500 Body height 177.8 cm Max [employer] Other [facility] Other 03-03-2023 08:45-0500 Body mass index (BMI) [Ratio] 26.43 kg/m2 Max Ball Other [facility] Other 03-03-2023 08:45-0500 Body weight 83.55 kg Max Ball Other [facility] Other 03-03-2023 08:45-0500 Diastolic blood pressure 81 mm[Hg] Max Ball Other [facility] Other 03-03-2023 08:45-0500 Respiratory rate 12 /min Max Ball Other [facility] Other 03-03-2023 08:45-0500 Systolic blood pressure 127 mm[Hg] Max Ball Other [facility] Other 10-28-2022 14:15-0400 Body height 177.8 cm Max Ball Other [facility] Other 10-28-2022 14:15-0400 Body mass index (BMI) [Ratio] 26.31 kg/m2 Max Ball Other [facility] Other 10-28-2022 14:15-0400 Body weight 83.19 kg Max Ball Other [facility] Other 10-28-2022 14:15-0400 Diastolic blood pressure 79 mm[Hg] Max Ball Other [facility] Other 10-28-2022 14:15-0400 Respiratory rate 12 /min Max Ball Other [facility] Other 10-28-2022 14:15-0400 Systolic blood pressure 140 mm[Hg] Max Ball Other [facility] Other 07-20-2022 16:00-0400 Body height 177.8 cm Max Ball Other [facility] Other 07-20-2022 16:00-0400 Body mass index (BMI) [Ratio] 27 kg/m2 Max Ball Other [facility] Other 07-20-2022 16:00-0400 Body weight 85.37 kg Max Ball Other [facility] Other 07-20-2022 16:00-0400 Diastolic blood pressure 86 mm[Hg] Max Ball Other [facility] Other 07-20-2022 16:00-0400 Respiratory rate 12 /min Max Ball Other [facility] Other 07-20-2022 16:00-0400 Systolic blood pressure 120 mm[Hg] Max Ball Other [facility] Other 06-28-2022 14:15-0400 Body height 177.8 cm Max Ball Other [facility] Other 06-28-2022 14:15-0400 Body mass index (BMI) [Ratio] 26.4 kg/m2 Max Ball Other [facility] Other 06-28-2022 14:15-0400 Body weight 83.46 kg Max Ball Other [facility] Other 06-28-2022 14:15-0400 Diastolic blood pressure 97 mm[Hg] [employer] Ball Other [facility] Other 06-28-2022 14:15-0400 Respiratory rate 12 /min Max Ball Other [facility] Other 06-28-2022 14:15-0400 Systolic blood pressure 119 mm[Hg] Max Ball Other [facility] Other 06-21-2022 11:15-0400 Body height 177.8 cm Max Ball Other [facility] Other 06-21-2022 11:15-0400 Body mass index (BMI) [Ratio] 26.69 kg/m2 Max Ball Other [facility] Other 06-21-2022 11:15-0400 Body weight 84.37 kg Max Ball Other [facility] Other 06-21-2022 11:15-0400 Diastolic blood pressure 90 mm[Hg] Max Ojeda Other [facility] Other 06-21-2022 11:15-0400 Respiratory rate 12 /min Max Ball Other [facility] Other 06-21-2022 11:15-0400 Systolic blood pressure 143 mm[Hg] Max Rusty Other [facility] Other Encounters Encounter Date Encounter Type Care Provider Facility Start: 06-16-2023 End: 06-16-2023 ambulatory ZEN TAVERA Not Available Start: 2023 End: 2023 ambulatory ZEN TAVERA Not Available Start: 04-25-2023 End: 04-25-2023 ambulatory Max Rusty Other [facility] Other Start: 04-25-2023 Telephone encounter [facility] Start: 04-18-2023 End: 04-18-2023 ambulatory ZEN TAVERA Not Available Start: 04-07-2023 End: 04-07-2023 Admission to same day surgery center Zen Tavera [facility] Start: 03-23-2023 End: 03-24-2023 ambulatory Zen Tavera Facility:[facility] Start: 03-23-2023 End: 03-23-2023 Patient encounter procedure Zen Tavera [facility] Start: 03-06-2023 End: 03-06-2023 ambulatory Max Ojeda Other [facility] Other Start: 03-06-2023 Telephone encounter Max Ojeda [facility] Start: 03-03-2023 End: 03-03-2023 ambulatory Max Rusty Other [facility] Other Start: 03-03-2023 Encounter for genera l adult medical examination without abnormal findings Max Ball [facility] Start: 03-03-2023 Periodic preventive med est patient 40-64yrs Max Ojeda [facility] Start: 02-20-2023 End: 02-20-2023 ambulatory Max Ojeda Other [facility] Other Start: 02-20-2023 Telephone encounter Max Ojeda [facility] Start: 02-14-2023 End: 02-14-2023 ambulatory ZEN TAVERA Not Available Start: 11-25-2022 End: 11-25-2022 ambulatory Max Ojeda Other [facility] Other Start: 11-25-2022 Nursing evaluation o f patient and report Max Ojeda [facility] Start: 11-01-2022 End: 11-01-2022 ambulatory Max Ball Other [facility] Other Start: 11-01-2022 Telephone encounter Max Ball [facility] Start: 10-28-2022 End: 10-28-2022 ambulatory Max Ball Other [facility] Other Start: 10-28-2022 Office outpatient vi sit 25 minutes Max Ball [facility] Start: 07-20-2022 End: 07-20-2022 ambulatory Max Ball Other [facility] Other Start: 07-20-2022 Office outpatient vi sit 25 minutes Max Ojeda [facility] Start: 07-11-2022 End: 07-11-2022 ambulatory Max Ojeda Other [facility] Other Start: 07-11-2022 Telephone encounter Max Rusty [facility] Start: 07-06-2022 End: 07-06-2022 ambulatory Max Ojeda Other [facility] Other Start: 07-06-2022 Telephone encounter Max Rusty [facility] Start: 06-28-2022 End: 06-28-2022 ambulatory Max Ojeda Other [facility] Other Start: 06-28-2022 Office outpatient vi sit 15 minutes Max Ojeda [facility] Start: 06-21-2022 End: 06-21-2022 ambulatory Max Ojeda Other [facility] Other Start: 06-21-2022 Office outpatient vi sit 25 minutes Max Ojeda [facility] Start: 06-20-2022 End: 06-20-2022 ambulatory Max Rusty Other [facility] Other Start: 06-20-2022 Telephone encounter Max [facility] Start: 06-19-2022 End: 06-20-[address] MAX OJEDA Facility:[facility] Start: 02-23-2022 Encounter for genera l adult medical examination without abnormal findings DR MAX OJEDA [facility] Start: 02-19-2022 End: 02-20-[address] MAX OJEDA Facility:[facility] Start: 02-19-2022 End: 02-20-2022 Encounter for general adult medical examination without abnormal findings DR MAX OJEDA Facility:[facility] Procedures Date Procedure Procedure Detail Performing Clinician Start: 04-07-2023 Arthroscopy of shoulder with biceps tenodesis Zen Tavera Comment on above: with biceps tendonesis, subcromial decom pression, and extensive debridment Start: 02-19-2022 PSA screening WOODRUFF MARVIN Comment on above: Performed By: #### PSASC #### [facility] [address] [place] [address] Dr. Wai Vallejo Start: 08-05-2020 Esophagogastroduodenoscopy Zen Tavera Comment on above: Egd/Colonoscopy Start: 11-25-2014 Repair of umbilical hernia Zen Tavera Start: 2014 Appendectomy Zen Tavera Start: 02-24-2014 Colonoscopy Zen Tavera Start: 02-24-2014 Esophagogastroduodenoscopy Zen Tavera Start: 03-27-2007 Cholecystectomy Zen Tavera Arthroscopy of knee Zen white Cervical arthrodesis Zen dejesus Depression screening Kamila Ojeda Other Immunizations Immunization Date Immunization Notes Care Provider [facility] 02-04-2021 COVID-19 Vaccine Pfizer - Documentation Purposes Only Max Ojeda Other [facility] Other 01-14-2021 COVID-19 Vaccine Pfizer - Documentation Purposes Only Max Ojeda Other [facility] Other NEGATED: Highlighted row has not occurred!07-08-2020 SARS-CoV-2 (COVID-19) mRNA-1273 vaccine Zen Tavera [facility] [place] Payers Date Payer Category Payer Unknown [id number] 2.16.84 [id number] 1970 Unknown [id number] 2.16.84 [id number] 1970 Unknown [id number] 2.16.8 [id number] 1970 Unknown [id number] 2.16.84 [id number] 1970 Unknown [id number] 2.16.84 [id number] 1970 Unknown [id number] 2.16.84 [id number] 1970 Unknown [id number] 2.16.84 [id number] 1970 Unknown [id number] 1970 Unknown [id number] 1960 Private Health Insurance [facility] [id number] Private Health Insurance [facility] [id number] Social History Date Type Detail Facility Unknown if ever smoked [facility] Other Sex Assigned At [facility] Start: 08-18-2020 Tobacco smoking status Ex-smoker (finding) [facility] Tobacco smoking status Former smokeless tobacco user, quit more than 30 days ago [facility] Medical Equipment Procedure Code Equipment Code Equipment Origin al Text Equipment Identifier Dates SHOULDER ARTHROS COPY W/ POSSIBLE REPAIR Zen Tavera DO 04/07/23 Unknown Shoulder L FDA Start: 04-07-2023 Functional Status Date Assessment Result Facility 03-23-2023 Functional Status No [facility] Clinical Notes 08-03-2020 to 04-07-2023 Note Date & Type Note Facility 04-07-2023 Hospital Discharg e instructions Patient Education 04/07/2023 11:34:21 Shoulder Cryocuff Patient Instructions - FT (CUSTOM) 04/07/2023 11:34:12 Post Op Patient Instructions - FT (Custom) (CUSTOM) 04/07/2023 09:07:26 Soumya Tavera - After Your Shoulder Arthroscopy (Custom) [place], [place] [facility] AFTER YOUR SHOULDER ARTHROSCOPY 1.Diet: Begin with a liquid diet and advance to your normal diet as tolerated. 2.Activity: You may remove your sling for bathing and to perform gentle range of motion exercises for the hand, wrist, and elbow. Bend and straighten your elbow and wrist several times per day to minimize stiffness. Keep your elbow in close to your side when performing these exercises. Do not move your shoulder until instructed by your surgeon. Swelling after surgery is normal and this will gradually decrease over time. All sports activities are discouraged, at least until your first post-operative visit at which time we will discuss how and when to resume sports. 3. Driving: Driving is legal. If you are involved in an accident, you must be able to prove that you maintained full control of your vehicle. For this reason, it is advised that you do not drive until your strength returns. You should not operate a vehicle or heavy machinery if you are taking narcotic pain medication. 4. Pain: If pain persists despite rest, elevation, and medication, contact your surgeon. You will be given a prescription for pain medications prior to leaving the hospital. Please inform us of any known drug allergy. If you have any problems with the medication, it should be discontinued and our office notified. The sensation of splashing of fluid inside the joint is not cause for concern. It represents residual fluids from surgery and they will be absorbed. Elevation of the arm and application of an ice pack will minimize swelling and discomfort in the first 48 hours after surgery. 5. Bandage: Soft compression dressing has been applied to your shoulder. This dressing should be comfortable and absorb any leakage of fluid or blood from your operated shoulder. Although the dressing may become moist or blood stained, this is not usually a cause for concern. If this persists, notify your surgeon. You may remove the dressing 48 hours after your surgery. If you have a bandage in your armpit, leave this in place until follow up. Apply betadine and band-aids to the small incisions once or twice daily as needed. 6.Incisions: The portals of entry may be sore and develop bruising over the next several days. The bruising eventually resolves and does not require any special care. Do not apply creams or lotions to your shoulder. Your portals will heal well on their own. 7.Bathing: You may shower 48 hours after surgery. Bathing or soaking in water should be avoided until your first post-operative visit. 8.Precautions: If you develop fever (101 degrees or above), increasing pain (not relieved by rest, elevation, ice, and medication as prescribed), redness or swelling in your shoulder or arm, please contact the office or the hospital. If you notice increased drainage from the operative portals after the third day, this should also be reported. 9.Return Visit: Your first post-operative follow-up appointment is generally between 7 and 14 days after discharge from the hospital. You will be given an appointment card with your appointment information. Do not hesitate to call the office or the hospital if any problems or questions arise before your appointment. Zen Tavera, DO [facility] [address] [place] [id number] Reviewed: Follow Up Care 02/14/2023 08:34:24 With:Zen Tavera Address: [address] [place] [address] Business (1) When:04/18/2022 13:45:00 Comments:Appointment has already been scheduled. Call for any problems. [facility] 03-03-2023 Evaluation note Encounter Date Diagnosis Assessment Notes Feb, Controlled type 2 diabetes mellitus with hyperglycemia, without long-term current use of insulin (ICD-10 - E11.65) This patient is following a comprehensive diabetic treatment plan. They are checking their feet daily for calluses and nonhealing ulcers. They are being seen for yearly dilated eye examinations. Goals: SBP less than 130, LDL less than 100, FBS less than 140, A1C less than 7%. They are checking their BS daily, will which are reviewed at the office visit. Continue regular routine monitoring of A1C,] Microalbumin, Dilated eye exam and Foot exam Feb, Wellness examination (ICD-10 - Z00.00) Healthy diet and exercise. Reviewed age-appropriate preventive testing recommended. Feb, Controlled type 2 diabetes mellitus with diabetic polyneuropathy, without long-term current use of insulin (ICD-10 - E11.42) Inspect feet daily for cuts and calluses.Recommen d diabetic shoes and inserts to prevent callus formation.Fall precautions. Feb, Hyperlipemia, mixed (ICD-10 - E78.2) Instructed on diet and exercise with continued statin therapy.Discussed the beneficial effects of lowering cholesterol in reducing the risk for cerebrovascular and cardiovascular disease. Feb, Gastroesophageal reflux disease with esophagitis without hemorrhage (ICD-10 - K21.00) Diet instructions: Smaller portions, avoid eating and laying flat, avoid eating or drinking prior to bedtime. Weight loss. Feb, SARINA (generalized anxiety disorder) (ICD-10 - F41.1) Healthy diet and exercise. No change in medication. Generally using Xanax several times/wk Feb, Overweight (ICD-10 - E66.3) This patient has been instructed on a low-fat, high-fiber diet. They are instructed to reduce calories, portion sizes and snacks. It is recommended that they exercise for 30 minutes, 3-5 times weekly. Feb, Screening PSA (prostate specific antigen) (ICD-10 - Z12.5) Yearly ARLEEN and PSA [facility] Other 11-27-2023 Evaluation note* Encounter Date Diagnosis Assessment Notes Treatment Notes Treatment Clinical Notes Jan, Controlled type 2 diabetes mellitus with hyperglycemia, without long-term current use of insulin (ICD-10 - E11.65) [facility] Other 09-01-2023 Evaluation note* Encounter Date Diagnosis Assessment Notes Treatment Notes Treatment Clinical Notes Nov, Acute seasonal allergic rhinitis, unspecified trigger (ICD-10 - J30.2) [facility] Other 08-04-2023 Evaluation note* Encounter Date Diagnosis Assessment Notes Treatment Notes Treatment Clinical Notes Oct, Gastroesophageal reflux disease with esophagitis without hemorrhage (ICD-10 - K21.00) Diet instructions: Smaller portions, avoid eating and laying flat, avoid eating or drinking prior to bedtime. Weight loss. Increase PPI bid for now. Hold NSAIDs and steroids Oct, Controlled type 2 diabetes mellitus with hyperglycemia, without long-term current use of insulin (ICD-10 - E11.65) This patient is following a comprehensive diabetic treatment plan. They are checking their feet daily for calluses and nonhealing ulcers. They are being seen for yearly dilated eye examinations. Goals: SBP less than 130, LDL less than 100, FBS less than 140, AC and A1C less than 7%. They are checking their BS daily, will which are reviewed at the office visit. Continue regular routine monitoring of A1C,] Microalbumin, Dilated eye exam and Foot exam Hyperglycemia from steroid use. Instructed to stop medrol dose artem Oct, SARINA (generalized anxiety disorder) (ICD-10 - F41.1) Chronic condition w/ frequent exacerbation culminating in panic attacks He presently is only taking Xanax as needed. Stressed healthy diet, exercise and avoidance of stimulants Continue to use Xanax PRN Recommend initiating SSRI - update in month Oct, Panic attack (ICD-10 - F41.0) Requires leave from work due to extreme anxiety/panic Tearful and unable to continue work in environment which triggers his reaction FMLA set up for intermittent leave I recommend that he take the next 5 days off to regroup - call if unable to return to work Oct, Adverse effect of corticosteroids, initial encounter (ICD-10 - T38.0X5A) Exacerbation of GERD and anxiety after starting steroid pack. This was compounded by taking NSAIDs simultaneously Instructed to stop NSAIDS and steroids Use ice/Voltaren Gel instead. Oct, Acute pain of left shoulder (ICD-10 - M25.512) ROM exercises, ice/heat and Voltaren Gel. PT was discussed but declined Subacromial injection was discussed but declined He prefers to see Orthopedics and will be making his own appt. Reassured that most likely is not serious injury but will take time to improve Oct, Strain of left rotat or cuff capsule, initial encounter (ICD-10 - S46.012A) Avoid strenuous lifting but maintain ROM Exercises given to patient [facility] Other 04-26-2023 Evaluation note* Encounter Date Diagnosis Assessment Notes Treatment Notes Treatment Clinical Notes Jun, Controlled type 2 diabetes mellitus with diabetic polyneuropathy, without long-term current use of insulin (ICD-10 - E11.42) This patient is following a comprehensive diabetic treatment plan. They are checking their feet daily for calluses and nonhealing ulcers. They are being seen for yearly dilated eye examinations. Goals: SBP less than 130, LDL less than 100, FBS less than 140, AC and A1C less than 7%. They are checking their BS daily, will which are reviewed at the office visit. A1C: due Jun, Controlled type 2 diabetes mellitus with hyperglycemia, without long-term current use of insulin (ICD-10 - E11.65) Inspect feet daily for cuts and calluses.Recommend diabetic shoes and inserts to prevent callus formation.Fall precautions. Jun, Primary hypertension (ICD-10 - I10) This patient is instructed to consume a healthy, low-fat, low-salt diet. They are also encouraged to continue exercise to achieve/maintain a normal BMI. Jun, Strain of left knee, initial encounter (ICD-10 - S86.912A) Ice, elevate and rest. VOltaren Gel qid ROM exercises, call if pain worsens Jun, Hyperlipemia, mixed (ICD-10 - E78.2) Diet and exercise with continued statin therapy. Jun, Gastroesophageal reflux disease with esophagitis without hemorrhage (ICD-10 - K21.00) Diet instructions: Smaller portions, avoid eating and laying flat, avoid eating or drinking prior to bedtime. Weight loss. Had to restart PPI [facility] Other 04-17-2023 Evaluation note* Encounter Date Diagnosis Assessment Notes Treatment Notes Treatment Clinical Notes Jun, Superficial thrombophlebitis of right upper extremity (ICD-10 - I80.8) [facility] Other 04-12-2023 Evaluation note* Encounter Date Diagnosis Assessment Notes Treatment Notes Treatment Clinical Notes Jun, Superficial thrombophlebitis of right upper extremity (ICD-10 - I80.8) [facility] Other 04-04-2023 Evaluation note* Encounter Date Diagnosis Assessment Notes Treatment Notes Treatment Clinical Notes Jun, Superficial thrombophlebitis of right upper extremity (ICD-10 - I80.8) Warm compresses, elevate and begin antibiotics Jun, SARINA (generalized anxiety disorder) (ICD-10 - F41.1) Healthy diet and keep active. Reassured [facility] Other 03-28-2023 Evaluation note* Encounter Date Diagnosis Assessment Notes Treatment Notes Treatment Clinical Notes May, Hyperlipemia, mixed (ICD-10 - E78.2) Diet and exercise with continued statin therapy. May, Elevated BP without diagnosis of hypertension (ICD-10 - R03.0) This patient is instructed to consume a healthy, low-fat, low-salt diet. They are also encouraged to continue exercise to achieve/maintain a normal BMI. Monitor BP at home w/o starting Amlodipine. - goal < 135/85 May, Controlled type 2 diabetes mellitus with hyperglycemia, without long-term current use of insulin (ICD-10 - E11.65) This patient is following a comprehensive diabetic treatment plan. They are checking their feet daily for calluses and nonhealing ulcers. They are being seen for yearly dilated eye examinations. Goals: SBP less than 130, LDL less than 100, FBS less than 140, AC and A1C less than 7%. They are checking their BS daily, will which are reviewed at the office visit. May, Controlled type 2 diabetes mellitus with diabetic polyneuropathy, without long-term current use of insulin (ICD-10 - E11.42) Inspect feet daily for cuts and calluses.Recommend diabetic shoes and inserts to prevent callus formation.Fall precautions. May, SARINA (generalized anxiety disorder) (ICD-10 - F41.1) Healthy diet and exercise d/c SSRI Continue Xanax as needed, typically will take once daily Not to take at work due to sedative properties May, Gastroesophageal reflux disease with esophagitis without hemorrhage (ICD-10 - K21.00) Diet instructions: Smaller portions, avoid eating and laying flat, avoid eating or drinking prior to bedtime. Weight loss. 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 Repeat Sinus CT at [facility] Other 05-10-2021 NotePatient Outreach (UROLMN) CHAVA JONES JR ([id number]) 1970 M Date Time Provider Department 08/03/20 BUCK LANDRUM During your visit today, we recorded the following information about you: Allergies As of Date: 08/03/2020 (No Known Allergies) Date Reviewed: 08/03/2020 Reviewed by: Buck Landrum MD - Fully Assessed Visit Diagnosis:Screening for genitourinary condition [Z13.89] Order(s):URINALYSIS, DIPSTICK ONLY [SQUA] Order #: [id number]. #:[id number] Prescriptions as of 08/03/2020 Sig: ALPRAZOLAM 0.25 MG TABLET Take 0.25 mg by mouth. ATORVASTATIN 80 MG TABLET ONETOUCH ULTRA BLUE TEST STRIP FREESTYLE LITE METER KIT USE TO TEST HOME BLOOD SUGAR * FREESTYLE LITE STRIPS TEST WITH 1 STRIP DAILY NE* CITALOPRAM 20 MG TABLET GLIMEPIRIDE 2 MG TABLET FREESTYLE LANCETS 28 GAUGE USE TO TEST HOME BLOOD SUGAR * METFORMIN 1,000 MG TABLET OMEPRAZOLE 40 MG CAPSULE,DANIEL* TAKE 1 CAPSULE ON EMPTY STOMA* SILDENAFIL 100 MG TABLET Take 100 mg by mouth. SITAGLIPTIN 50 MG-METFORMIN 1* Take by mouth. Problem List As Of Date 08/03/2020 Noted Resolved ED (erectile dysfunction) of organic origin [N5*08/03/2020 Peyronie's disease [N48.6] 08/03/2020 Encounter Status:Closed by Bridg, CluepediaUSER on 08/06/20[facility] 08-03-2020 NoteHNO ID: [id number] Author: Buck Landrum MD Service: ? Author Type: Physician Type: Progress Notes Filed: 08/03/2020 10:35 AM Note Text: [facility] NEW PATIENT HISTORY AND PHYSICAL EXAM PATIENT INFO: Chava Jones JR 50 year old REFERRING M.D.: Adam Ayoub [id number] [facility] [id number] This consult was requested by Dr. Ayoub for an opinion regarding Peyronie's disease, and my final recommendations will be communicated to the requesting health care provider by way of the shared medical record for internal providers or letter via the [employer] [place] Postal [employer] for external providers. HISTORY CHIEF COMPLAINT: peyronie's HPI: Per OV with Dr. Ayoub- [employer]INE[employer] referred to our office by Dr. Hernandez due to ED issues. Pt states that he has tried Sildenafil in the past with minimal improvement. Pt denies any infections in the past year. Pt does have Diabetes. He states that he has noticed an increased curvature with pain. He had a slight curve starting in 2019 but it has slowly progressed over the past 2 years. Pt has noticed a yellow tint to semen starting this past Monday. Pt is unsure if he has ever had a PSA done. Assessment/Plan 1. Peyronie disease (N48.6: Induration penis plastica) Rt. curvature that has progressed over the past two years. Pt. also states having pain w/ erections. No plaques noticed from today's exam. Pt. would like a referral to see specialist in [facility] to discuss options. All questions/concerns were discussed. Pt. to call the office if heencounters any issues prior. Pt. acknowledges understanding. 2. ED (erectile dysfunction) (N52.9: Male erectile dysfunction, unspecified) Pt. is taking Sildenafil 100mg prn. he is able to have intercourse but it is difficult now. 3. BPH with urinary obstruction (N40.1: Benign prostatic hyperplasia with lower urinary tract symptoms) Pt. is not on any BPH meds. at this time and is doing well overall w/ his urination w/ no bothersome symptoms. PDRE today - 35gms, no hard nodules. Pt. is to obtain PSA soon. I have reviewed the previous health record information and history for this pt. from Dr. Ayoub UA 1+ glucose due to DM II MEDICATIONS: Current Outpatient Medications Medication Sig - ALPRAZolam (XANAX) 0.25 mg tablet Take 0.25 mg by mouth. - atorvastatin (LIPITOR) 80 mg tablet - blood sugar diagnostic (ONETOUCH ULTRA TEST STRIP) test strip - FREESTYLE LITE METER monitoring kit USE TO TEST HOME BLOOD SUGAR ONCE EVERY DAY - FREESTYLE LITE STRIPS test strip TEST WITH 1 STRIP DAILY NEEDED - citalopram (CELEXA) 20 mg tablet - glimepiride (AMARYL) 2 mg tablet - FREESTYLE LANCETS 28 gauge USE TO TEST HOME BLOOD SUGAR ONCE DAILY - metFORMIN (GLUCOPHAGE) 1,000 mg tablet - omeprazole (PRILOSEC) 40 mg capsule TAKE 1 CAPSULE ON EMPTY STOMACH FOLLOWED IN 30 MINUTES BY BREAKFAST - sildenafil (VIAGRA) 100 mg tablet Take 100 mg by mouth. - SITagliptin-metFORMIN (JANUMET) 50-1,000 mg per tablet Take by mouth. No current facility-administered medications for this visit. MEDICATION ALLERGIES: ALLERGIES No Known Allergies No past medical history on file. No past surgical history on file. FAMILY HISTORY: NEGATIVE: No related previous family history. Social History Tobacco Use - Smoking status: Never Smoker - Smokeless tobacco: Former User Substance Use Topics - Alcohol use: Not on file - Drug use: Not on file REVIEW OF SYSTEMS: Constitutional: +unintentional 11 lb weight loss- unsure of reason Eyes: negative Ear Nose and Throat: negative Cardiovascular: negative Respiratory: negative Gastrointestinal: +constipation, diarrhea, reflux- on medications Musculoskeletal: negative Integumentary: negative Neurological: negative Psychiatric: negative Endocrine: +DM II Hematologic/Lymphatic: negative Allergic/Immunologic: negative HPI: 50 year old male who presents today for Peyronie's disease. He states curvature worsened around 3-4 months ago per pt, congenital curvature to the right but states symptoms worsened around a year ago. He states curve is now 45 degrees to the right. He states pain with intercourse around 3 months ago and states 10/10 rigdity before injury. He endorses DM II. He states ED and he had erections before worsened curve. He states 3/10 rigidity currently. He has tried sildenafil which gave him BORGES and didn't improve his erections. He denies trying Cialis. He states intact climax and ejaculation. Patient has his prostate checked with Dr. Ayoub. PHYSICAL EXAM: BP 146/92 (BP Site: Right Arm, BP Position: Sitting, BP Cuff Size: Large Adult) Pulse 98 Wt 86.2 kg (190 lb 1.6 oz) GEN (more content not included)...[facility] Appointment Date:04/07/2023 11:30:00 AM Scheduled Provider: [facility] Other History general Narrative - Reported* Type Description Date Medical History Screening PSA (prostate specific antigen) Medical History Depression screening Medical History SARINA (generalized anxiety disorde r) Medical History Hyperlipemia, mixed Medical History Gastroesophageal ref lux disease with esophagitis without hemorrhage Medical History Controlled type 2 di abetes mellitus with diabetic polyneuropathy, without long-term current use of insulin Medical History Controlled type 2 di abetes mellitus with hyperglycemia, without long-term current use of insulin Medical History COVID Medical History Epistaxis Medical History Low testosterone in male Medical History Acute stress reaction Medical History Peyronie disease Medical History Contracture, right ankle Medical History Foot pain, right Medical History Plantar fasciitis, right Medical History Infected sebaceous gland Medical History External hemorrhoids Medical History Paresthesia Medical History Acute seasonal allergic rhinitis , unspecified trigger Medical History Dyshidrotic eczema Medical History Erectile dysfunction due to emerald rial insufficiency Surgical History cervical fusion Surgical History cholecystectomy Surgical History appendectomy Surgical History knee surgery X3 Surgical History UPPR GI ENDOSCOPY, DIAGNOSIS 20 Surgical History COLONOSCOPY 2020 Hospitalization History See Above [facility] Other History general Narrative - Reported* Type Description Date Medical History Screening PSA (prostate specific antigen) Medical History Depression screening Medical History SARINA (generalized anxiety disorde r) Medical History Hyperlipemia, mixed Medical History Gastroesophageal ref lux disease with esophagitis without hemorrhage Medical History Controlled type 2 di abetes mellitus with diabetic polyneuropathy, without long-term current use of insulin Medical History Controlled type 2 di abetes mellitus with hyperglycemia, without long-term current use of insulin Medical History COVID Medical History Epistaxis Medical History Low testosterone in male Medical History Acute stress reaction Medical History Peyronie disease Medical History Contracture, right ankle Medical History Foot pain, right Medical History Plantar fasciitis, right Medical History Infected sebaceous gland Medical History External hemorrhoids Medical History Paresthesia Medical History Acute seasonal allergic rhinitis , unspecified trigger Medical History Dyshidrotic eczema Medical History Erectile dysfunction due to emerald rial insufficiency Surgical History cervical fusion Surgical History cholecystectomy Surgical History appendectomy Surgical History knee surgery X3 Surgical History UPPR GI ENDOSCOPY, DIAGNOSIS 20 Surgical History COLONOSCOPY 2020 Surgical History Left shoulder arthroscopy Hospitalization History See Above [facility] Other Hospital course Narrative No data available for this section [facility] No data available for this section [facility] No data available for this section [facility] Summary Purpose Family History No Family History Records FoundNo Family History Records FoundNo Family History Records Found No data available for this section No Family History Records Found No data available for this section No Family History Records Found Advance Directives No Advanced Directives Records FoundNo Advanced Directives Records FoundNo Advanced Directives Records FoundNo Advanced Directives Records FoundNo Advanced Directives Records Found Additional Source Comments (unrecognized sect ion and content) No Status Records FoundNo Status Records FoundNo Status Records FoundNo Status Records FoundNo Status Records Found INFORMATION SOURCE (unrecogn ized section and content) DATE CREATED AUTHOR 04/27/2021 [facility] DATE CREATED AUTHOR AUTHOR'S ORGANIZ ATION 06/26/2022 [facility] DATE CREATED AUTHOR AUTHOR'S ORGANIZ ATION 07/13/2022 [facility] DATE CREATED AUTHOR AUTHOR'S ORGANIZ ATION 03/24/2023 [facility] DATE CREATED AUTHOR AUTHOR'S ORGANIZ ATION 06/17/2023 [facility] EPIC REASON FOR VISIT (unrecogniz ed section and content) Lab resultsWellnessrefillall ergy shotPanic Attacks6 monthUpdateradial vein is warm to the touch, and tinglyTBH - HIGH BP, HEADACHES, HIGH BS Patient Care team informatio n (unrecognized section and content) Personnel Name: MAX OJEDA DO [address]: [address] [facility] Personnel Name: MAX OJEDA DO Address: Address: [address] [place] [address]- FOR RECORDS PERTAINING TO PATIENTS WHO ARE OR HAVE BEEN ENROLLED IN A CHEMICAL DEPENDENCY/SUBSTANCEABUSE PROGRAM, SOME INFORMATION MAY BE OMITTED. This clinical summary was aggregated from multiple sources. Caution should be exercised in using it in the provision of clinical care. This summary normalizes information from multiple sources, and as a consequence, information in this document may materially change the coding, format and clinical context of patient data. In addition, data may be omitted in some cases. CLINICAL DECISIONS SHOULD BE BASED ON THE PRIMARY CLINICAL RECORDS. [facility] [employer] provides no warranty or guarantee of the accuracy or completeness of information in this document.
[2023-06-27 11:19] LABS: Basophils Percent Auto 0.6 % (0.2-2.0); Eosinophils Absolute Auto 0.1 10^3/uL (0.0-0.7); Eosinophils Percent Auto 1.5 % (0.9-7.0); Hematocrit 43.9 % (42.0-54.0); Hemoglobin 14.1 g/dL (14.0-18.0); Immature Granulocytes Abs Auto 0.02 10^3/uL (0.00-0.03); Immature Granulocytes Pct Auto 0.3 % (0.0-0.5); Lymphocytes Percent Auto 13.7 % (20.5-60.0); Mean Corpuscular HGB Conc 32.1 g/dL (29.9-35.2); Mean Corpuscular Hemoglobin 27.1 pg (25.9-34.0); Mean Corpuscular Volume 84.3 fL (80.0-94.0); Monocytes Absolute Auto 0.4 10^3/uL (0.3-0.8); Monocytes Percent Auto 6.1 % (1.7-12.0); Neutrophils Absolute Auto 5.7 10^3/uL (1.4-6.5); Neutrophils Percent Auto 77.8 % (43.0-75.0); Platelet Count 296 10^3/uL (150-450); Red Blood Count 5.21 10^6/uL (4.70-6.10); Red Cell Distribution Width 12.5 % (11.0-15.0); White Blood Count 7.3 10^3/uL (4.0-11.0)
[2023-06-27 11:39] LABS: Erythrocyte Sedimentation Rate 10 mm/hr (<=20)
[2023-06-27 12:05] LABS: C Reactive Protein <0.50 mg/dL (<=0.50)
[2023-06-28 04:07] LABS: Rheumatoid Factor (RF) <10.0 IU/mL (<14.0)
[2023-06-28 12:09] LABS: ANA Direct Positive (Negative); Anti-DNA (DS) Ab Qn 27 IU/mL (0-9); RNP Antibodies <0.2 AI (0.0-0.9); Sjogren's Anti-SS-A <0.2 AI (0.0-0.9); Sjogren's Anti-SS-B <0.2 AI (0.0-0.9)
[2023-06-28 15:09] LABS: Anti-CCP Ab, IgG/IgA 3 units (0-19)
== END 2023-06-27 10:49 | disposition home or self-care (01) ==
LOC: LAB 10:50
PROVIDERS: PCP Internal Medicine; Visit Provider Orthopaedic Surgery
DX: Z98.890 Other specified postprocedural states (principal)
CPT/HCPCS: 36415; 85025; 85652; 86038; 86140; 86200; 86431

== ENCOUNTER 2023-09-14 08:41 | Outpatient (OUT) | payer OTHER, SELFPAY ==
[2023-09-14 09:28] LABS: Microalbumin Urine Random <1.3 mg/dL (<=30.0)
[2023-09-14 10:51] LABS: Estimated Average Glucose 200 mg/dL; Glycohemoglobin A1C 8.6 % (4.5-6.2)
== END 2023-09-14 08:42 | disposition home or self-care (01) ==
LOC: LAB 08:44
PROVIDERS: PCP Internal Medicine; Visit Provider Internal Medicine
DX: E11.65 Type 2 diabetes mellitus with hyperglycemia (principal)
CPT/HCPCS: 36415; 82043; 83036

== ENCOUNTER 2024-03-06 07:08 | Outpatient (OUT) | payer OTHER, SELFPAY ==
--- OUTSIDE RECORDS SUMMARY | 2024-03-06 07:12 | XMS_ITS | CCD ---
Author Organization [facility] Care Team Providers Care Collar Baster Name Role Phone Max Ojeda Unavailable GARRETT, DR HOLLAND Primary Care Unavailable ZIDARON, DR STEPHY Morgan Consulting Unavailable SHAIKH Aishwarya WONG Attending Unavailable SHAIKH Aishwarya WONG Admitting Unavailable HAY ., DR BRYANT Consulting Unavailable GLAALFONSO LUNA Consulting Unavailable SHAIKH Aishwarya WONG Consulting Unavailable KLYMCHAVA Consulting Unavailable JBARA, YASER Consulting Unavailable GARRETT, DR HOLLAND Admitting Unavailable GARRETT, DR HOLLAND Attending Unavailable GARRETT, DR HOLLAND Primary Care Unavailable GARRETT, DR HOLLAND Consulting Unavailable MAX OJEDA Primary Care Physician Zen Tavera Referring Unavailable Zen Tavera Attending Unavailable Zen Tavera Admitting Unavailable DO Max Ojeda Primary Care Provider MD Rajan Moreland Attending Provider [phone] Rajan Moreland Attending Unavailable Rajan Moreland Admitting Unavailable Max Ojeda Primary Care Unavailable ZEN TAVERA Attending Unavailable ZEN TAVERA Attending Unavailable ZEN TAVERA Referring Unavailable ZEN TAVERA Attending Unavailable KAJAL, ZEN Sanchez Attending Unavailable JAS TAVERASON A Referring Unavailable KAJAL, ZEN A Attending Unavailable KAJAL, ZEN A Referring Unavailable JAS TAVERASON A Attending Unavailable ZEN TAVERA A Attending Unavailable ZEN TAVERA Attending Unavailable JENNIFER DICK Attending Unavailable ZEN TAVERA Referring Unavailable JENNIFER DICK Attending Unavailable ZEN TAVERA Attending Unavailable ZEN [...] Weight Dosing Start Date: 04/07/23 Status: Ordered ALPRAZolam 0.25 mg oral tablet (19 sources) Benzodiazepine Start: 07-31-2019 take 0.25 mg by mouth every eight hours Alprazolam Active 0.25 MG PO Every 8 hours July 06, 2023 12:00am atorvastatin 80 mg oral tablet (20 sources) HMG-CoA Reductase Inhibitor Start: 09-11-2023 take 1 tablet by mouth once daily in the evening Atorvastatin Active 0 .ROUTE .COMPLEX September 11, 2023 12:44pm TAKE 1 TABLET BY MOUTH EVERY EVENING Start: 03-23-2023 End: 09-11-2023 take 80 mg by mouth once daily in the evening Atorvastatin Discontinued 80 MG PO Every evening July 06, 2023 12:00am September 11, 2023 12:44pm take 1 tablet by leydi th every twenty-four hours Lipitor 10 MG 1 tablet Orally Once a day Active Blood-Glucose Meter (Onetouch Ultra2 Meter) misc (2 sources) Start: 07-20-2023 Blood-Glucose Meter (Onetouch Ultra2 Meter) misc Active 0 .ROUTE .MEDSUPPLY July 20, 2023 12:00am Use to test home BS qd citalopram 40 mg oral tablet (1 source) Serotonin Reuptake Inhibitor Start: 09-13-2023 take 40 mg by mouth once daily Citalopram Active 40 MG PO Daily September 13, 2023 12:00am docusate sodium 100 mg oral capsule (1 source) Start: 04-07-2023 take 1 capsule by mouth twice daily as needed for constipation Colace 100 mg Cap 100 mg = 1 cap(s), Oral, BID, PRN for constipation, # 20 cap(s), Refills(s) 0, Pharmacy: [facility]/pharmacy #[id number], 176.7, cm, 03/23/23 9:11:00 EST, Height/Length Dosing, 83.7, kg, 03/23/23 9:11:00 EST, Weight Dosing Start Date: 04/07/23 Status: Ordered doxycycline hyclate 100 mg oral capsule (8 sources) Tetracycline-clas s Drug Start: 06-28-2022 take 1 capsule by mouth twice daily Doxycycline Hyclate 100 MG 1 capsule Orally twice daily for 7 days Jun, Active glimepiride 2 mg oral tablet (20 sources) Sulfonylurea Start: 07-06-2023 End: 07-19-2023 take 3 mg by mouth once daily Glimepiride Active 3 MG PO Daily 45 July 19, 2023 6:50am Start: 07-31-2019 take 1.5 mg by mouth once ruth y glimepiride 1 mg Tab 1.5 mg = 1.5 tab(s), Oral, Daily, Refills(s) 0, High blood sugar Start Date: 07/31/19 Status: Ordered take 1.5 tablets by mouth every twenty-four hours Glimepiride 2 MG 1.5 tablet with breakfast or the first main meal of the day Orally Once a day Active Glimepiride 2 MG TAKE 1 TABLET DAILY BEFORE BREAKFAST Active ibuprofen 600 mg oral tablet (1 source) Nonsteroidal Anti-inflammatory Drug Start: 04-07-2023 take 1 tablet by mouth every six hours as needed for pain ibuprofen 600 mg Tab 600 mg = 1 tab(s), Oral, q6hr, PRN as needed for pain, with food or milk, # 50 tab(s), Refills(s) 0, Pharmacy: [facility]/pharmacy #[id number], 176.7, cm, 03/23/23 9:11:00 EST, Height/Length Dosing, 83.7, kg, 03/23/23 9:11:00 EST, Weight Dosing Start Date: 04/07/23 Status: Ordered metFORMIN hydrochloride 1000 mg / SITagliptin 50 mg oral tablet (20 sources) Biguanide, Dipeptidyl Peptidase 4 Inhibitor Start: 08-16-2023 take 1 tablet by mouth twice daily at mealtime Sitagliptin Phos-Metformin (Janumet) 50-1,000 mg tablet Active 0 .ROUTE .COMPLEX August 16, 2023 8:35am TAKE 1 TABLET BY MOUTH TWICE A DAY WITH MEALS FOR 30 DAYS Start: 07-31-2019 End: 05-22-2024 take 1 tablet by mouth twice daily Sitagliptin Phos-Metformin (Janumet) 50-1,000 mg tablet Discontinued 1 TAB PO Twice daily July 06, 2023 12:00am August 16, 2023 8:35am take 1 tablet by leydi every twelve hours Janumet 50-500 MG 1 tablet with meals Orally Twice a day Active omeprazole 40 mg delayed release oral capsule (14 sources) Proton Pump Inhibitor Start: 07-06-2023 take 40 mg by mouth once daily Omeprazole Active 40 MG PO Daily July 06, 2023 12:00am Start: 07-31-2019 take [address] [facility] once daily omeprazole 40 mg Cap-DR 40 [...] Drug Class(es) Dates Sig (Normalized) Sig (Original) [id number] 200 actuat albuterol 0.09 mg/actuat metered dose inhaler (17 sources) beta2-Adrenergic Agonist Start: 07-06-2023 End: 09-13-2023 take 1 puff(s) by inhalation every four hours Albuterol Sulfate Discontinued 2 PUFF INHALATION Every 4 hours July 06, 2023 12:00am September 13, 2023 2:14pm Start: 05-18-2019 take 2 puff(s) by in halation every four hours as needed Start: 05-18-2019 take 2 puff(s) by in halation every four hours as needed Albuterol Sulfate HFA 108 (90 Base) MCG/ACT 2 puffs as needed Inhalation every 4 hrs for 30 days Apr, Not-Taking/PRN dextromethorphan hydrobromide 15 mg / guaiFENesin 400 mg / pseudoephedrine hydrochloride 60 mg oral tablet (14 sources) alpha-Adrenergic Agonist, Uncompetitive K-cmqnhk-V-aspartate Receptor Antagonist, Sigma-1 Agonist Start: 05-18-2019 Capmist DM 60-15-400 MG 1/2 to 1 tablet Orally every 6-8 hours as needed for 8 days Apr, Not-Taking/PRN hydrocortisone 25 mg/ml topical cream (20 sources) Corticosteroid Start: 07-06-2023 End: 09-13-2023 Hydrocortisone Discontinued 1 APPLIC TOPICAL Daily July 06, 2023 12:00am September 13, 2023 2:15pm Hydrocortisone 2 .5 % 1 application Externally Once a day Active Hydrocortisone A cetate 25 MG 1 suppository Rectal Once a day Active Hydrocortisone 2 .5 % 1 application Externally Once a day Active methylPREDNISolone 4 mg oral tablet (14 sources) Corticosteroid Start: 05-18-2019 Medrol 4 MG as directed Orally for 6 days Apr, Not-Taking/PRN oseltamivir 75 mg oral capsule (14 sources) Neuraminidase Inhibitor Start: 05-18-2019 take 1 capsule by mouth every twelve hours Tamiflu 75 MG 1 capsule Orally Twice a day for 5 day(s) Apr, Not-Taking/PRN triamcinolone acetonide 40 mg/ml injectable suspension (6 sources) Corticosteroid Start: 11-25-2022 Kenalog-40 Nov, 60 [...] controlled] 07-31-2019 Chronic Disorders of lipid metabolism (20 sources) Mixed hyperlipidemia; Translations: [Mixed hyperlipidemia] Onset: 3 Chronic E Codes: Adverse effects of medical drugs (2 sources) Adverse effect of glucocorticoids and synthetic analogues, initial encounter; Translations: [ADVRS EFF GLUCOCORT SYN ANALOG INIT] Onset: 3 Episodic Esophageal disorders (7 sources) Gastro-esophageal reflux disease with esophagitis; Translations: [Gastroesophageal reflux disease with esophagitis without hemorrhage] 07-31-2019 Chronic Essential hypertension (15 sources) Essential hypertension; Translations: [Essential (primary) hypertension] Chronic Gastrointestinal hemorrhage (2 sources) Rectal hemorrhage 07-31-2019 Episodic Headache; including migraine (3 sources) Headache; including migraine; Translations: [HEADACHE UNSPECIFIED] Onset: 3 Hemorrhoids (14 sources) External hemorrhoids; Translations: [Residual hemorrhoidal skin tags] Episodic Hypertension with complications and secondary hypertension (1 source) Hypertensive urgency; Translations: [HYPERTENSIVE URGENCY] Onset: 3 Chronic Immunizations and screening for infectious disease (5 sources) Anti-nuclear factor positive; Translations: [Other specified abnormal immunological findings in serum] Onset: 4 07-07-2023 Episodic Mood disorders (1 source) Major depressive disorder, single episode, unspecified; Translations: [DIEGO DEPRESS D/O SINGLE EPIS UNS] Onset: 3 Chronic Other acquired deformities (14 sources) 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; Translations: [Contracture, right ankle] Chronic Other aftercare (1 source) 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; Translations: [OTH SKILLED NURSING CURRENT DRUG THERAPY] Onset: 3 Episodic Other and unspecified benign neoplasm (2 sources) Tubular adenoma of colon 08-18-2020 Episodic Other circulatory disease (1 source) Elevated blood-pressure reading, without diagnosis of hypertension Episodic Other connective tissue disease (14 sources) Pain in limb; Translations: [Pain in right foot] Episodic Other connective tissue disease (14 sources) Plantar fascial fibromatosis; Translations: [Plantar fascial fibromatosis] Episodic Other connective tissue disease (2 sources) Shoulder girdle weakness; Translations: [Other symptoms and signs involving the musculoskeletal system] 07-07-2023 Episodic Other connective tissue disease (2 sources) Other symptoms and signs involving the musculoskeletal system; Translations: [Other symptoms involving nervous and musculoskeletal systems] 07-07-2023 Episodic Other lower respiratory disease (2 sources) Nodule of lung; Translations: [Solitary pulmonary nodule] Episodic Other male genital disorders (14 sources) Induratio penis plastica; 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 Other male genital disorders (14 sources) Impotence of organic origin; Translations: [Erectile dysfunction due to arterial insufficiency] Chronic Other male genital disorders (2 sources) Erectile dysfunction co-occurrent and due to arterial insufficiency 07-31-2019 Chronic Other nervous system disorders (14 sources) Paresthesia; Translations: [Paresthesia of skin] Episodic [...] chemistry] Onset: 2 Episodic Other skin disorders (14 sources) Hair follicle disorder; Translations: [Other specified follicular disorders] Episodic Other skin disorders (14 sources) Vesicular eczema of hands and/or feet; Translations: [Dyshidrosis [pompholyx]] Episodic Other upper respiratory disease (14 sources) Seasonal allergic rhinitis; Translations: [Other seasonal allergic rhinitis] Chronic Other upper respiratory disease (1 source) Other seasonal allergic rhinitis Chronic Other upper respiratory disease (14 sources) Bleeding from nose; Translations: [Epistaxis] Episodic [...] disease with esophagitis without hemorrhage] Viral infection (14 sources) Disease caused by 2019-nCoV; Translations: [COVID-19] Results Test Name Value Interpretation Reference Range Facility TONJA Antinuclear Antibodieson 08-16-2023 Antinuclear Abs, IFA Negative Normal . [facility] Comment on above: Result Comment: Nega tive <1:80 Borderline 1:80 Positive >1:80 ICAP nomenclature: AC-0 For more information about Hep-2 cell patterns use ANApatterns.org, the official website for the International Consensus on Antinuclear Antibody (TONJA) Patterns (ICAP). Performed at: - [facility] [address] [id number] Propagator Laborer: Scott Freedman PhD, Phone: [phone] Performed By: #### P P, ESR, CK, ADDONUAPLUS, CRP, CMP, TSH3, CBC, T4F #### [facility] [address] #### ALDOLASE, FRANCISCO,URINE, UPE RAND, SPE, RPR W RFX, FRANCISCO SERUM #### [facility] , Activated partial thrombopla stin time (aPTT) in platelet poor plasma by coagulation aOrdered By: Rajan Moreland on 08-16-2023 aPTT Coag (PPP) [Time] 25.9 s 25.1-36.5 [facility] Comment on above: A hematocrit value g reater than 55% may lead to inaccurate results in coagulation testing. Patients having hematocrit values >55% require a special collection tube for coagulation studies. Please contact the laboratory at [phone] for redraw instructions. Alanine aminotransferase [En zymatic activity/volume] in Serum or PlasmaOrdered By: Rajan Moreland on 08-16-2023 ALT [Catalytic activity/Vol] 33 U/L 7- [facility] Comment on above: Performed By: #### P P, ESR, CK, ADDONUAPLUS, CRP, CMP, TSH3, CBC, T4F #### [facility] [address] [place] [address] [place] #### ALDOLASE, FRANCISCO,URINE, UPE RAND, SPE, RPR W RFX, FRANCISCO SERUM #### [facility] , Albumin [Mass/volume] in Ser um or Plasma by Bromocresol green (BCG) dye binding methoOrdered By: Rajan Moreland on 08-16-2023 Albumin BCG dye [Mass/Vol] 4.6 g/dL 3.5-5.7 [facility] Albumin/Protein.total in 24 hour Urine by ElectrophoresisOrdered By: Rajan Moreland on 08-16-2023 Albumin Elph (24H U) [Mass fraction] 31.5 % . [facility] Aldolaseon 08-16-2023 Aldolase 4.0 U/L Normal 3.3-10.3 [facility] Comment on above: Result Comment: Perf ormed at: - [facility] [address] [id number] Propagator Laborer: Scott Freedman PhD, Phone: [phone] PERFORMED BY: [place] [address] PATHOLOGIST RN CRITICAL CARE LUZ ELENA MEDINA M.D. Performed By: #### P P, ESR, CK, ADDONUAPLUS, CRP, CMP, TSH3, CBC, T4F #### [facility] [address] [place] [address] #### ALDOLASE, FRANCISCO,URINE, UPE RAND, SPE, RPR W RFX, FRANCISCO SERUM #### [facility] , Alkaline phosphatase [Enzyma tic activity/volume] in Serum or PlasmaOrdered By: Rajan Moreland on 08-16-2023 ALP [Catalytic activity/Vol] 61 U/L 34-104 [facility] Comment on above: Performed By: #### P P, ESR, CK, ADDONUAPLUS, CRP, CMP, TSH3, CBC, T4F #### [address] #### ALDOLASE, FRANCISCO,URINE, UPE RAND, SPE, RPR W RFX, FRANCISCO SERUM #### [facility] , Antithyroglobulin Abon 08-15 Antithyroglobulin Ab <1.0 Normal 0.0-0.9 [facility] Comment on above: Result Comment: Thyr oglobulin Antibody measured by [employer] It should be noted that the presence of thyroglobulin antibodies may not be pathogenic nor diagnostic, especially at very low levels. The assay guide rail cleaner has found that four percent of individuals without evidence of thyroid disease or autoimmunity will have positive TgAb levels up to 4 IU/mL. Performed at: [address] [id number] Propagator Laborer: Scott Freedman PhD, Phone: [phone] Performed By: #### P P, ESR, CK, ADDONUAPLUS, CRP, CMP, TSH3, CBC, T4F #### [address] #### ALDOLASE, FRANCISCO,URINE, UPE RAND, SPE, RPR W RFX, FRANCISCO SERUM #### [facility] , Aspartate aminotransferase [ Enzymatic activity/volume] in Serum or PlasmaOrdered By: Rajan Moreland on 08-16-2023 AST [Catalytic activity/Vol] 22 U/L 13-39 [facility] Comment on above: Performed By: #### P P, ESR, CK, ADDONUAPLUS, CRP, CMP, TSH3, CBC, T4F #### [address] #### ALDOLASE, FRANCISCO,URINE, UPE RAND, SPE, RPR W RFX, FRANCISCO SERUM #### [facility] , Automated basophil %Ordered By: Rajan Moreland on 08-16-2023 Basophils/100 WBC (Bld) 0.5 % . [facility] Comment on above: Performed By: #### P P, ESR, CK, ADDONUAPLUS, CRP, CMP, TSH3, CBC, T4F #### [place] [address] [place] #### ALDOLASE, FRANCISCO,URINE, UPE RAND, SPE, RPR W RFX, FRANCISCO SERUM #### [facility] , Automated basophil countOrde red By: Rajan Moreland on 08-16-2023 Basophils (Bld) [#/Vol] 0.0 10*3/uL 0.0-0.2 [facility] Comment on above: Performed By: #### P P, ESR, CK, ADDONUAPLUS, CRP, CMP, TSH3, CBC, T4F #### [facility] [address] [place] [address] #### ALDOLASE, FRANCISCO,URINE, UPE RAND, SPE, RPR W RFX, FRANCISCO SERUM #### [facility] , Automated blood monocyte cou ntOrdered By: Rajan Moreland on 08-16-2023 Monocytes (Bld) [#/Vol] 0.5 10*3/uL 0.0-0.8 [facility] Comment on above: Performed By: #### P P, ESR, CK, ADDONUAPLUS, CRP, CMP, TSH3, CBC, T4F #### [address] #### ALDOLASE, FRANCISCO,URINE, UPE RAND, SPE, RPR W RFX, FRANCISCO SERUM #### [facility] , Automated eosinophil %Ordere d By: Rajan Moreland on 08-16-2023 Eosinophils/100 WBC (Bld) 1.1 % . [facility] Comment on above: Performed By: #### P P, ESR, CK, ADDONUAPLUS, CRP, CMP, TSH3, CBC, T4F #### [address] #### ALDOLASE, FRANCISCO,URINE, UPE RAND, SPE, RPR W RFX, FRANCISCO SERUM #### [facility] , Automated eosinophil countOr dered By: Rajan Moreland on 08-16-2023 Eosinophils (Bld) [#/Vol] 0.1 10*3/uL 0.0-0.45 [facility] Comment on above: Performed By: #### P P, ESR, CK, ADDONUAPLUS, CRP, CMP, TSH3, CBC, T4F #### [address] #### ALDOLASE, FRANCISCO,URINE, UPE RAND, SPE, RPR W RFX, FRANCISCO SERUM #### [facility] , Automated monocyte %Ordered By: Rajan Pascualrow on 08-16-2023 Monocytes/100 WBC (Bld) 5.8 % . [facility] Comment on above: Performed By: #### P P, ESR, CK, ADDONUAPLUS, CRP, CMP, TSH3, CBC, T4F #### [facility] [address] [place] [address] #### ALDOLASE, FRANCISCO,URINE, UPE RAND, SPE, RPR W RFX, FRANCISCO SERUM #### [facility] , Automated neutrophil %Ordere d By: Rajanbettina Moreland on 08-16-2023 Neutrophils/100 WBC (Bld) 79.8 % . [facility] Comment on above: Performed By: #### P P, ESR, CK, ADDONUAPLUS, CRP, CMP, TSH3, CBC, T4F #### [facility] [address] [place] [address] #### ALDOLASE, FRANCISCO,URINE, UPE RAND, SPE, RPR W RFX, FRANCISCO SERUM #### [facility] , Bacteria [Presence] in Urine by AutomatedOrdered By: Rajan Moreland on 08-16-2023 Bacteria Auto Ql (U) None seen [HPF] None Seen [facility] Bilirubin Test strip Ql (U)O rdered By: Rajan Moreland on 08-16-2023 Bilirubin Ql (U) Negative Negative [facility] Bilirubin.total [Mass/volume ] in Serum or PlasmaOrdered By: Rajan Moreland on 08-16-2023 Bilirubin [Mass/Vol] 1.2 mg/dL 0.3-1.0 [facility] Comment on above: Performed By: #### P P, ESR, CK, ADDONUAPLUS, CRP, CMP, TSH3, CBC, T4F #### [facility] [address] [place] [address] [place] #### ALDOLASE, FRANCISCO,URINE, UPE RAND, SPE, RPR W RFX, FRANCISCO SERUM #### [facility] , C reactive protein [Mass/vol ume] in Serum or PlasmaOrdered By: Rajanbettina Moreland on 08-16-2023 CRP [Mass/Vol] < 0.5 mg/dL 0.0-0.5 [facility] C-Reactive Proteinon 024 CRP [Mass/Vol] mg/L Normal 0.0-0.5 [facility] Comment on above: Performed By: #### P P, ESR, CK, ADDONUAPLUS, CRP, CMP, TSH3, CBC, T4F #### [facility] [address] [place] [address] #### ALDOLASE, FRANCISCO,URINE, UPE RAND, SPE, RPR W RFX, FRANCISCO SERUM #### [facility] , CT biopsyOrdered By: Rajan Moreland on 08-16-2023 CT biopsy 4.0 U/L 3.3-10.3 [facility] Comment on above: Performed at: [address] Director: Scott Freedman PhD, Phone: [phone] Calcium [Mass/volume] in Ser um or PlasmaOrdered By: Rajan Moreland on 08-16-2023 Calcium [Mass/Vol] 9.9 mg/dL 8.6-10.3 [facility] Comment on above: Performed By: #### P P, ESR, CK, ADDONUAPLUS, CRP, CMP, TSH3, CBC, T4F #### [facility] [address] [place] [address] #### ALDOLASE, FRANCISCO,URINE, UPE RAND, SPE, RPR W RFX, FRANCISCO SERUM #### [facility] , Carbon dioxide, total [Moles /volume] in Serum or PlasmaOrdered By: Rajan Moreland on 08-16-2023 CO2 [Moles/Vol] 29.6 mmol/L 21.0-31.[address] [facility] Comment on above: Performed By: #### P P, ESR, CK, ADDONUAPLUS, CRP, CMP, TSH3, CBC, T4F #### [facility] [address] [place] [address] #### ALDOLASE, FRANCISCO,URINE, UPE RAND, SPE, RPR W RFX, FRANCISCO SERUM #### [facility] , Chloride [Moles/volume] in S venessa or PlasmaOrdered By: Rajan Moreland on 08-16-2023 Chloride [Moles/Vol] 101 mmol/L 98-107 [facility] Comment on above: Performed By: #### P P, ESR, CK, ADDONUAPLUS, CRP, CMP, TSH3, CBC, T4F #### [facility] [address] [place] [address] #### ALDOLASE, FRANCISCO,URINE, UPE RAND, SPE, RPR W RFX, FRANCISCO SERUM #### [facility] , Chromatin Antibodyon 024 Chromatin Antibody 0.2 Normal 0.0-0.9 [facility] Comment on above: Result Comment: Perf ormed at: - [facility] [place] [id number] Propagator Laborer: Scott Freedman PhD, Phone: [phone] PERFORMED BY: [place] [address] PATHOLOGIST RN CRITICAL CARE LUZ ELENA MEDINA M.D. Performed By: #### P P, ESR, CK, ADDONUAPLUS, CRP, CMP, TSH3, CBC, T4F #### [facility] [address] [place] [address] #### ALDOLASE, FRANCISCO,URINE, UPE RAND, SPE, RPR W RFX, FRANCISCO SERUM #### [facility] , Coagulation Profileon 2023 aPTT Coag (Bld) [Time] 25.9 s Normal 25.1-36.5 [facility] e [facility] Comment on above: Result Comment: A he matocrit value greater than 55% may lead to inaccurate results in coagulation testing. Patients having hematocrit values >55% require a special collection tube for coagulation studies. Please contact the laboratory at [phone] for redraw instructions. PERFORMED BY: [place] [address] PATHOLOGIST RN CRITICAL CARE LUZ ELENA MEDINA M.D. Performed By: #### P P, ESR, CK, ADDONUAPLUS, CRP, CMP, TSH3, CBC, T4F #### [address] #### ALDOLASE, FRANCISCO,URINE, UPE RAND, SPE, RPR W RFX, FRANCISCO SERUM #### [facility] , Color of Urine by AutoOrdere d By: Rajan Moreland on 08-16-2023 Color (U) Yellow Yellow [facility] Comment on above: Order Comment: Name Collection Type:: Clean-Voided Midstream Performed By: #### P P, ESR, CK, ADDONUAPLUS, CRP, CMP, TSH3, CBC, T4F #### [address] #### ALDOLASE, FRANCISCO,URINE, UPE RAND, SPE, RPR W RFX, FRANCISCO SERUM #### [facility] , Complement C3on 08-16-2023 Complement C3 171 mg/dL High 82-167 [facility] Comment on above: Result Comment: Perf ormed at: - [facility] [address] [id number] Propagator Laborer: Scott Freedman PhD, Phone: [phone] Performed By: #### P P, ESR, CK, ADDONUAPLUS, CRP, CMP, TSH3, CBC, T4F #### [facility] [address] [place] [address] #### ALDOLASE, FRANCISCO,URINE, UPE RAND, SPE, RPR W RFX, FRANCISCO SERUM #### [facility] , Complement C4on 08-16-2023 Complement C4 27 mg/dL Normal 12-38 [facility] Comment on above: Performed By: #### P P, ESR, CK, ADDONUAPLUS, CRP, CMP, TSH3, CBC, T4F #### [facility] [address] [place] [address] #### ALDOLASE, FRANCISCO,URINE, UPE RAND, SPE, RPR W RFX, FRANCISCO SERUM #### [facility] , Complement Total (CH50)on Complement Total (CH50) >60 Normal >41 T he [facility] Comment on above: Result Comment: Age Male Female 1 - 30 days Not Estab. Not Estab. 31 days - 6 months >32 >20 7 months - 17 years >39 >39 >17 years >41 >41 NOTE: The adult ( >17 years ) reference interval range is used to flag abnormals on this report. If the patient is 17 years old or younger, use the table above to determine out of range values. Performed at: - [facility] [id number] Propagator Laborer: Scott Freedman PhD, Phone: [phone] PERFORMED BY: [place] [address] PATHOLOGIST RN CRITICAL CARE LUZ ELENA MEDINA M.D. Performed By: #### P P, ESR, CK, ADDONUAPLUS, CRP, CMP, TSH3, CBC, T4F #### [address] #### ALDOLASE, FRANCISCO,URINE, UPE RAND, SPE, RPR W RFX, FRANCISCO SERUM #### [facility] , Complete Blood Count Auto Di ffon 08-16-2023 Mean Corpuscular HGB Conc 33.3 g/dL Normal 32.5-35.6 [facility] Comment on above: Performed By: #### P P, ESR, CK, ADDONUAPLUS, CRP, CMP, TSH3, CBC, T4F #### [address] #### ALDOLASE, FRANCISCO,URINE, UPE RAND, SPE, RPR W RFX, FRANCISCO SERUM #### [facility] , NRBC% 0.1 /100{WBC} Normal 0-0.5 [facility] Comment on above: Performed By: #### P P, ESR, CK, ADDONUAPLUS, CRP, CMP, TSH3, CBC, T4F #### [address] #### ALDOLASE, FRANCISCO,URINE, UPE RAND, SPE, RPR W RFX, FRANCISCO SERUM #### [facility] , Comprehensive Metabolic Pane julianne 08-16-2023 Albumin [Mass/Vol] 4.6 g/dL Normal 3.5-5.7 [facility] Comment on above: Performed By: #### P P, ESR, CK, ADDONUAPLUS, CRP, CMP, TSH3, CBC, T4F #### [address] #### ALDOLASE, FRANCISCO,URINE, UPE RAND, SPE, RPR W RFX, FRANCISCO SERUM #### [facility] , GFR/1.73 sq M.predicted MDRD (S/P/Bld) [Vol rate/Area] mL/min/{1.73_m2} Normal [facility] Comment on above: Performed By: #### P P, ESR, CK, ADDONUAPLUS, CRP, CMP, TSH3, CBC, T4F #### [place] [address] [place] #### ALDOLASE, FRANCISCO,URINE, UPE RAND, SPE, RPR W RFX, FRANCISCO SERUM #### [facility] , Creatine kinase [Enzymatic a ctivity/volume] in Serum or PlasmaOrdered By: Rajan Moreland on 08-16-2023 CK [Catalytic activity/Vol] 128 U/L 30-223 [facility] Comment on above: Result Comment: PERF ORMED BY: [place] [address] PATHOLOGIST RN CRITICAL CARE LUZ ELENA MEDINA M.D. Performed By: #### P P, ESR, CK, ADDONUAPLUS, CRP, CMP, TSH3, CBC, T4F #### [facility] [address] [place] [address] #### ALDOLASE, FRANCISCO,URINE, UPE RAND, SPE, RPR W RFX, FRANCISCO SERUM #### [facility] , Creatinine [Mass/volume] in Serum or PlasmaOrdered By: Rajan Moreland on 08-16-2023 Creatinine [Mass/Vol] 0.78 mg/dL 0.70-1.30 [facility] Comment on above: Performed By: #### P P, ESR, CK, ADDONUAPLUS, CRP, CMP, TSH3, CBC, T4F #### [facility] [address] [place] [address] #### ALDOLASE, FRANCISCO,URINE, UPE RAND, SPE, RPR W RFX, FRANCISCO SERUM #### [facility] , Dipstick and Microscopicon 0 08-16-2023 Appearance (U) Clear Normal Clear [facility] Comment on above: Order Comment: Name Collection Type:: Clean-Voided Midstream Performed By: #### P P, ESR, CK, ADDONUAPLUS, CRP, CMP, TSH3, CBC, T4F #### [address] #### ALDOLASE, FRANCISCO,URINE, UPE RAND, SPE, RPR W RFX, FRANCISCO SERUM #### [facility] , Bacteria,Urine None Seen Normal None Seen [facility] Comment on above: Order Comment: Name Collection Type:: Clean-Voided Midstream Performed By: #### P P, ESR, CK, ADDONUAPLUS, CRP, CMP, TSH3, CBC, T4F #### [address] #### ALDOLASE, FRANCISCO,URINE, UPE RAND, SPE, RPR W RFX, FRANCISCO SERUM #### [facility] , Bilirubin,Urine Negative Normal Negative [facility] Comment on above: Order Comment: Name Collection Type:: Clean-Voided Midstream Performed By: #### P P, ESR, CK, ADDONUAPLUS, CRP, CMP, TSH3, CBC, T4F #### [address] #### ALDOLASE, FRANCISCO,URINE, UPE RAND, SPE, RPR W RFX, FRANCISCO SERUM #### [facility] , Glucose Ql (U) 500 mg/dL High Normal [facility] Comment on above: Order Comment: Name Collection Type:: Clean-Voided Midstream Performed By: #### P P, ESR, CK, ADDONUAPLUS, CRP, CMP, TSH3, CBC, T4F #### [address] #### ALDOLASE, FRANCISCO,URINE, UPE RAND, SPE, RPR W RFX, FRANCISCO SERUM #### [facility] , Hyaline Casts,Urine None Seen Normal 0-8 [facility] Comment on above: Order Comment: Name Collection Type:: Clean-Voided Midstream Result Comment: PERF ORMED BY: [place] [address] PATHOLOGIST RN CRITICAL CARE LUZ ELENA MEDINA M.D. Performed By: #### P P, ESR, CK, ADDONUAPLUS, CRP, CMP, TSH3, CBC, T4F #### [address] #### ALDOLASE, FRANCISCO,URINE, UPE RAND, SPE, RPR W RFX, FRANCISCO SERUM #### [facility] , Ketones Ql (U) Negative Normal Negative [facility] Comment on above: Order Comment: Name Collection Type:: Clean-Voided Midstream Performed By: #### P P, ESR, CK, ADDONUAPLUS, CRP, CMP, TSH3, CBC, T4F #### [address] #### ALDOLASE, FRANCISCO,URINE, UPE RAND, SPE, RPR W RFX, FRANCISCO SERUM #### [facility] , Leukocyte esterase Test strip Ql (U) Negative Normal Negative [facility] Comment on above: Order Comment: Name Collection Type:: Clean-Voided Midstream Performed By: #### P P, ESR, CK, ADDONUAPLUS, CRP, CMP, TSH3, CBC, T4F #### [address] #### ALDOLASE, FRANCISCO,URINE, UPE RAND, SPE, RPR W RFX, FRANCISCO SERUM #### [facility] , Nitrite,Urine Negative Normal Negative [facility] Comment on above: Order Comment: Name Collection Type:: Clean-Voided Midstream Performed By: #### P P, ESR, CK, ADDONUAPLUS, CRP, CMP, TSH3, CBC, T4F #### [address] #### ALDOLASE, FRANCISCO,URINE, UPE RAND, SPE, RPR W RFX, FRANCISCO SERUM #### [facility] , Occult Blood,Urine Negative Normal Negative [facility] Comment on above: Order Comment: Name Collection Type:: Clean-Voided Midstream Performed By: #### P P, ESR, CK, ADDONUAPLUS, CRP, CMP, TSH3, CBC, T4F #### [address] #### ALDOLASE, FRANCISCO,URINE, UPE RAND, SPE, RPR W RFX, FRANCISCO SERUM #### [facility] , Protein,Urine Negative Normal Negative [facility] Comment on above: Order Comment: Name Collection Type:: Clean-Voided Midstream Performed By: #### P P, ESR, CK, ADDONUAPLUS, CRP, CMP, TSH3, CBC, T4F #### [address] #### ALDOLASE, FRANCISCO,URINE, UPE RAND, SPE, RPR W RFX, FRANCISCO SERUM #### [facility] , RBC LM.HPF (Urine sed) [#/Area] 0 /[HPF] Normal 0-4 [facility] Comment on above: Order Comment: Name Collection Type:: Clean-Voided Midstream Performed By: #### P P, ESR, CK, ADDONUAPLUS, CRP, CMP, TSH3, CBC, T4F #### [address] #### ALDOLASE, FRANCISCO,URINE, UPE RAND, SPE, RPR W RFX, FRANCISCO SERUM #### [facility] , Specificy [place],Urine 1.024 Normal 1.00 1-1.03 0 [facility] Comment on above: Order Comment: Name Collection Type:: Clean-Voided Midstream Performed By: #### P P, ESR, CK, ADDONUAPLUS, CRP, CMP, TSH3, CBC, T4F #### [address] #### ALDOLASE, FRANCISCO,URINE, UPE RAND, SPE, RPR W RFX, FRANCISCO SERUM #### [facility] , Squamous Epithelial Cell,Urine None Seen Normal 0-2 [facility] Comment on above: Order Comment: Name Collection Type:: Clean-Voided Midstream Performed By: #### P P, ESR, CK, ADDONUAPLUS, CRP, CMP, TSH3, CBC, T4F #### [address] #### ALDOLASE, FRANCISCO,URINE, UPE RAND, SPE, RPR W RFX, FRANCISCO SERUM #### [facility] , Urobilinogen,Urine Normal Normal Normal [facility] Comment on above: Order Comment: Name Collection Type:: Clean-Voided Midstream Performed By: #### P P, ESR, CK, ADDONUAPLUS, CRP, CMP, TSH3, CBC, T4F #### [address] #### ALDOLASE, FRANCISCO,URINE, UPE RAND, SPE, RPR W RFX, FRANCISCO SERUM #### [facility] , WBC LM.HPF (Urine sed) [#/Area] 0 /[HPF] Normal 0-4 [facility] Comment on above: Order Comment: Name Collection Type:: Clean-Voided Midstream Performed By: #### P P, ESR, CK, ADDONUAPLUS, CRP, CMP, TSH3, CBC, T4F #### [address] #### ALDOLASE, FRANCISCO,URINE, UPE RAND, SPE, RPR W RFX, FRANCISCO SERUM #### [facility] , Erythrocyte Sedimentation Ra dior 08-16-2023 ESR (Bld) [Velocity] 12 mm/h Normal 0-19 [facility] Comment on above: Result Comment: PERF ORMED BY: [place] [address] PATHOLOGIST RN CRITICAL CARE LUZ ELENA MEDINA M.D. Performed By: #### P P, ESR, CK, ADDONUAPLUS, CRP, CMP, TSH3, CBC, T4F #### [address] #### ALDOLASE, FRANCISCO,URINE, UPE RAND, SPE, RPR W RFX, FRANCISCO SERUM #### [facility] , Erythrocyte distribution wid th [Ratio] by Automated countOrdered By: Rajan Moreland on 08-16-2023 Erythrocyte distribution width (RBC) [Ratio] 13.5 % 12.0-14.8 [facility] Comment on above: Performed By: #### P P, ESR, CK, ADDONUAPLUS, CRP, CMP, TSH3, CBC, T4F #### [address] #### ALDOLASE, FRANCISCO,URINE, UPE RAND, SPE, RPR W RFX, FRANCISCO SERUM #### [facility] , Erythrocyte sedimentation ra te by Photometric methodOrdered By: Rajan Moreland on 08-16-2023 ESR Photometric method (Bld) [Velocity] 12 mm/hr 0-19 [facility] Erythrocytes [#/area] in Uri ne sediment by Automated countOrdered By: Rajan Moreland on 08-16-2023 RBC Auto (Urine sed) [#/Area] 0-1 [HPF] 0-4 [facility] Erythrocytes [#/volume] in B lood by Automated countOrdered By: Rajan Moreland on 08-16-2023 RBC (Bld) [#/Vol] 5.36 10*6/uL 3.90-5.60 [facility] Comment on above: Performed By: #### P P, ESR, CK, ADDONUAPLUS, CRP, CMP, TSH3, CBC, T4F #### [facility] [address] [place] [address] #### ALDOLASE, FRANCISCO,URINE, UPE RAND, SPE, RPR W RFX, FRANCISCO SERUM #### [facility] , Gamma globulin/Protein.total in 24 hour Urine by ElectrophoresisOrdered By: Rajan Pascualrow on 08-16-2023 Gamma globulin Elph (24H U) [Mass fraction] 20.2 % . [facility] Glucose [Mass/volume] in Ser um or PlasmaOrdered By: Rajan Pascualrow on 08-16-2023 Glucose [Mass/Vol] 280 mg/dL 70-100 [facility] Comment on above: ADA recommended refe rence rangeRandom Glucose Reference Range is dependent on time and content of last meal. Glucose of more than 200 mg/dL in a nonstressed, ambulatory subject supports the diagnosis of Diabetes Mellitus. Result Comment: [place] om Glucose Reference Range is dependent on time and content of last meal. Glucose of more than 200 mg/dL in a nonstressed, ambulatory subject supports the diagnosis of Diabetes Mellitus. ADA recommended reference range Performed By: #### P P, ESR, CK, ADDONUAPLUS, CRP, CMP, TSH3, CBC, T4F #### [facility] [address] [place] [address] [place] #### ALDOLASE, FRANCISCO,URINE, UPE RAND, SPE, RPR W RFX, FRANCISCO SERUM #### [facility] , Hematocrit [Volume Fraction] of Blood by Automated countOrdered By: Rajan Moreland on 08-16-2023 Hematocrit (Bld) [Volume fraction] 43.6 % 38.8-50.0 [facility] Comment on above: Performed By: #### P P, ESR, CK, ADDONUAPLUS, CRP, CMP, TSH3, CBC, T4F #### [facility] [address] [place] [address] #### ALDOLASE, FRANCISCO,URINE, UPE RAND, SPE, RPR W RFX, FRANCISCO SERUM #### [facility] , Hemoglobin [Mass/volume] in BloodOrdered By: Rajan Moreland on 08-16-2023 Hemoglobin (Bld) [Mass/Vol] 14.6 g/dL 13.0-17.0 [facility] Comment on above: Performed By: #### P P, ESR, CK, ADDONUAPLUS, CRP, CMP, TSH3, CBC, T4F #### [facility] [address] [place] [address] [place] #### ALDOLASE, FRANCISCO,URINE, UPE RAND, SPE, RPR W RFX, FRANCISCO SERUM #### [facility] , INR in Platelet poor plasma by Coagulation assayOrdered By: Rajan Moreland on 08-16-2023 INR Coag (PPP) [Relative time] 0.9 {INR} [facility] Comment on above: INR Therapeutic Rang e A) Pre- and Peroperative OAT started two weeks before surgery. NOT HIP SURGERY: 1.5 - 2.5 HIP SURGERY: 2 - 3B) Primary and secondary prevention of venous THROMBOSIS: 2 - 3C) Active venous thrombosis, pulmonary embolismand prevention of recurrent venous thrombosis: 2 - 3D) Prevention of arterial thromboembolismincluding patients with mechanical heart valves: 3 - 4.5 Result Comment: INR Therapeutic Range A) Pre- and Peroperative OAT started two weeks before surgery. NOT HIP SURGERY: 1.5 - 2.5 HIP SURGERY: 2 - 3 B) Primary and secondary prevention of venous THROMBOSIS: 2 - 3 C) Active venous thrombosis, pulmonary embolism and prevention of recurrent venous thrombosis: 2 - 3 D) Prevention of arterial thromboembolism including patients with mechanical heart valves: 3 - 4.5 Performed By: #### P P, ESR, CK, ADDONUAPLUS, CRP, CMP, TSH3, CBC, T4F #### [facility] [address] #### ALDOLASE, FRANCISCO,URINE, UPE RAND, SPE, RPR W RFX, FRANCISCO SERUM #### [facility] , IgA [Mass/volume] in Serum o r PlasmaOrdered By: Rajan Moreland on 08-16-2023 IgA [Mass/Vol] 239 mg/dL 90-386 [facility] IgG [Mass/volume] in Serum o r PlasmaOrdered By: Rajan Moreland on 08-16-2023 IgG [Mass/Vol] 1196 mg/dL 603-1613 [facility] IgM [Mass/volume] in Serum o r PlasmaOrdered By: Rajan Moreland on 08-16-2023 IgM [Mass/Vol] 141 mg/dL 20-172 [facility] Comment on above: Performed at: [facility] [employer] [id number] Director: Scott Freedman PhD, Phone: [phone] Immunofixation for UrineOrde red By: Rajan Moreland on 08-16-2023 Interpretation Immunofixation (U) [Interp] See comment . [facility] Comment on above: No monoclonality det ected.Performed at: [facility] [id number] Director: Scott Freedman PhD, Phone: [phone] Immunofixation, (FRANCISCO), Urine on 08-16-2023 Immunofixation, (FRANCISCO), Urine Normal . [facility] Comment on above: Result Comment: No m onoclonality detected. Performed at: [employer] [address] [id number] Propagator Laborer: Scott Freedman PhD, Phone: [phone] Performed By: #### P P, ESR, CK, ADDONUAPLUS, CRP, CMP, TSH3, CBC, T4F #### [address] #### ALDOLASE, FRANCISCO,URINE, UPE RAND, SPE, RPR W RFX, FRANCISCO SERUM #### [facility] , Immunofixation,Serumon 08-15 Immunofixation, Serum Normal . [facility] Comment on above: Result Comment: No m onoclonality detected. Performed By: #### P P, ESR, CK, ADDONUAPLUS, CRP, CMP, TSH3, CBC, T4F #### [address] #### ALDOLASE, FRANCISCO,URINE, UPE RAND, SPE, RPR W RFX, FRANCISCO SERUM #### [facility] , Immunoglobulin A, Serum 239 mg/dL Normal 90-386 [facility] Comment on above: Performed By: #### P P, ESR, CK, ADDONUAPLUS, CRP, CMP, TSH3, CBC, T4F #### [address] #### ALDOLASE, FRANCISCO,URINE, UPE RAND, SPE, RPR W RFX, FRANCISCO SERUM #### [facility] , Immunoglobulin G 1196 mg/dL Normal 603-1613 [facility] Comment on above: Performed By: #### P P, ESR, CK, ADDONUAPLUS, CRP, CMP, TSH3, CBC, T4F #### [address] #### ALDOLASE, FRANCISCO,URINE, UPE RAND, SPE, RPR W RFX, FRANCISCO SERUM #### [facility] , Immunoglobulin M, Serum 141 mg/dL Normal 20-172 [facility] Comment on above: Result Comment: Perf ormed at: - [facility] [address] [id number] Propagator Laborer: Scott Freedman PhD, Phone: [phone] Performed By: #### P P, ESR, CK, ADDONUAPLUS, CRP, CMP, TSH3, CBC, T4F #### [facility] [address] [place] [address] #### ALDOLASE, FRANCISCO,URINE, UPE RAND, SPE, RPR W RFX, FRANCISCO SERUM #### [facility] , Ketones Auto test strip (U) [Mass/Vol]Ordered By: Rajan Moreland on 08-16-2023 Ketones (U) [Mass/Vol] Negative Negative [facility] - UrinalysisOrder ed By: Rajan Moreland on 08-16-2023 Hyaline casts LM Ql (Urine sed) None seen [LPF] 0-8 [facility] Leukocytes [#/area] in Urine sediment by Automated countOrdered By: Rajan Moreland on 08-16-2023 WBC Auto (Urine sed) [#/Area] 0-1 [HPF] 0-4 [facility] Leukocytes [#/volume] correc fabiola for nucleated erythrocytes in Blood by Automated counOrdered By: Rajan Moreland on 08-16-2023 WBC corrected for nucl RBC Auto (Bld) [#/Vol] 8.1 10*3/uL 4.1-10.5 [facility] Leukocytes [#/volume] in Blo od by Automated countOrdered By: Rajan Moreland on 08-16-2023 WBC (Bld) [#/Vol] 8.1 10*3/uL 4.1-10.5 [facility] Comment on above: Performed By: #### P P, ESR, CK, ADDONUAPLUS, CRP, CMP, TSH3, CBC, T4F #### [facility] [address] [place] [address] [place] #### ALDOLASE, FRANCISCO,URINE, UPE RAND, SPE, RPR W RFX, FRANCISCO SERUM #### [facility] , Lupus Anticoagulant Compon 0 08-16-2023 Dilute Prothrombin Time (dPt) 32.7 Normal 0.0-47.6 [facility] Comment on above: Performed By: #### L UPANTCOAG #### [facility] , dPT Confirm Ratio 1.16 Normal 0.00-1.34 [facility] Comment on above: Performed By: #### L UPANTCOAG #### [facility] , DRVVT Lupus 31.4 Normal 0.0-47.0 [facility] Comment on above: Performed By: #### L UPANTCOAG #### [facility] , Interpretation Comment: Normal . [facility] Comment on above: Result Comment: No l upus anticoagulant was detected. Performed at: [facility] [address] [id number] Propagator Laborer: Blane Frazier MD, Phone: [phone] PERFORMED BY: [address] [id number] PATHOLOGIST RN CRITICAL CARE LUZ ELENA MEDINA M.D. Performed By: #### L UPANTCOAG #### [facility] , PTT-LA 28.4 Normal 0.0-43.5 [facility] Comment on above: Performed By: #### L UPANTCOAG #### [facility] , Thrombin Time 18.8 Normal 0.0-23.0 [facility] Comment on above: Performed By: #### L UPANTCOAG #### [facility] , Lupus anticoagulant [Interpr etation] in Platelet poor plasmaOrdered By: Rajan Moreland on 08-16-2023 Lupus anticoagulant (PPP) [Interp] Comment: . [facility] Comment on above: No lupus anticoagula nt was detected.Performed at: [facility] [address] [id number] Director: Blane Frazier MD, Phone: [phone] Lymphocytes [#/volume] in Bl ood by Automated countOrdered By: Rajan Moreland on 08-16-2023 Lymphocytes (Bld) [#/Vol] 1.0 10*3/uL 1.00-4.8 [facility] Comment on above: Performed By: #### P P, ESR, CK, ADDONUAPLUS, CRP, CMP, TSH3, CBC, T4F #### [facility] [address] [place] [address] #### ALDOLASE, FRANCISCO,URINE, UPE RAND, SPE, RPR W RFX, FRANCISCO SERUM #### [facility] , Lymphocytes/100 leukocytes i n Blood by Automated countOrdered By: Rajan Moreland on 08-16-2023 Lymphocytes/100 WBC (Bld) 12.8 % . [facility] Comment on above: Performed By: #### P P, ESR, CK, ADDONUAPLUS, CRP, CMP, TSH3, CBC, T4F #### [facility] [address] [place] [address] #### ALDOLASE, FRANCISCO,URINE, UPE RAND, SPE, RPR W RFX, FRANCISCO SERUM #### [facility] , MCH [Entitic mass] by Automa fabiola countOrdered By: Rajan Moreland on 08-16-2023 MCH (RBC) [Entitic mass] 27.1 pg 27.5-35.2 [facility] Comment on above: Performed By: #### P P, ESR, CK, ADDONUAPLUS, CRP, CMP, TSH3, CBC, T4F #### [facility] [address] [place] [address] [place] #### ALDOLASE, FRANCISCO,URINE, UPE RAND, SPE, RPR W RFX, FRANCISCO SERUM #### [facility] , MCHC Auto (RBC) [Mass/Vol]Or dered By: Rajan Moreland on 08-16-2023 MCHC (RBC) [Mass/Vol] 33.3 g/dL 32.5-35.6 [facility] MCV [Entitic volume] by Auto mated countOrdered By: Rajan Moreland on 08-16-2023 MCV (RBC) [Entitic vol] 81.4 fL 83.5-101 F [facility] Comment on above: Performed By: #### P P, ESR, CK, ADDONUAPLUS, CRP, CMP, TSH3, CBC, T4F #### [facility] [address] [place] [address] [place] #### ALDOLASE, FRANCISCO,URINE, UPE RAND, SPE, RPR W RFX, FRANCISCO SERUM #### [facility] , Neutrophils [#/volume] in Bl ood by Automated countOrdered By: Rajan Moreland on 08-16-2023 Neutrophils (Bld) [#/Vol] 6.5 10*3/uL 1.8-7.7 [facility] Comment on above: Performed By: #### P P, ESR, CK, ADDONUAPLUS, CRP, CMP, TSH3, CBC, T4F #### [facility] [address] [place] [address] #### ALDOLASE, FRANCISCO,URINE, UPE RAND, SPE, RPR W RFX, FRANCISCO SERUM #### [facility] , Nitrite Test strip Ql (U)Ord ered By: Rajan Moreland on 08-16-2023 Nitrite Ql (U) Negative Negative [facility] No Panel InformationOrdered By: Rajan Moreland on 08-16-2023 Estimated GFR (CKD-EPI) > 60.0 mL/Min [facility] Creatinine Clearance (Chem N/A [facility] Protein Electrophoresis M-Ancelmo Not observed g/dL Not Observed [facility] Protein Electrophoresis Note See comment . [facility] Comment on above: Protein electrophore sis scan will follow via computer,mail, or production stage manager delivery. Serum Immunofixation See comment . [facility] Comment on above: No monoclonality det ected. Total Complement (CH50) >60 U/mL >41 [facility] Comment on above: Age Male Female 1 - 30 days Not Estab. Not Estab. 31 days - 6 months >32 >20 7 months - 17 years >39 >39 >17 years >41 >41 NOTE: The adult ( >17 years ) reference interval range is used to flag abnormals on this report. If the patient is 17 years old or younger, use the table above to determine out of range values.Performed at: [facility] [employer] [id number] Director: Scott Freedman PhD, Phone: [phone] Urine Random Prot Electrophor Note See comment . [facility] Comment on above: Protein electrophore sis scan will follow via computer,mail, or production stage manager delivery.Performed at: [id number] [place] [id number] Director: Scott Freedman PhD, Phone: [phone] Nucleated erythrocytes [Pres ence] in Blood by Automated countOrdered By: Rajan Moreland on 08-16-2023 Nucleated RBC Auto Ql (Bld) 0.1 /100{WBC} 0-0.5 [facility] Platelet mean volume [Entiti c volume] in Blood by Automated countOrdered By: Rajan Moreland on 08-16-2023 Platelet mean volume (Bld) [Entitic vol] 8.1 fL 6.6-10.1 [facility] Comment on above: Performed By: #### P P, ESR, CK, ADDONUAPLUS, CRP, CMP, TSH3, CBC, T4F #### [facility] [address] [place] [address] #### ALDOLASE, FRANCISCO,URINE, UPE RAND, SPE, RPR W RFX, FRANCISCO SERUM #### [facility] , Platelet poor plasma ratio o f lupus anticoagulant-sensitive activated partial thromboOrdered By: Rajan Moreland on 08-16-2023 aPTT.lupus sensitive.excess phospholipid actual/normal Coag (PPP) [Relative time] 32.7 sec 0.0-47.6 [facility] Platelets [#/volume] in Bloo d by Automated countOrdered By: Rajan Moreland on 08-16-2023 Platelets (Bld) [#/Vol] 299 10*3/uL 150-450 [facility] Comment on above: Performed By: #### P P, ESR, CK, ADDONUAPLUS, CRP, CMP, TSH3, CBC, T4F #### [facility] [address] [place] [address] #### ALDOLASE, FRANCISCO,URINE, UPE RAND, SPE, RPR W RFX, FRANCISCO SERUM #### [facility] , Potassium [Moles/volume] in Serum or PlasmaOrdered By: Rajan Moreland on 08-16-2023 Potassium [Moles/Vol] 4.4 mmol/L 3.5-5.1 [facility] Comment on above: Performed By: #### P P, ESR, CK, ADDONUAPLUS, CRP, CMP, TSH3, CBC, T4F #### [facility] [address] [place] [address] #### ALDOLASE, FRANCISCO,URINE, UPE RAND, SPE, RPR W RFX, FRANCISCO SERUM #### [facility] , Protein Auto test strip (U) [Mass/Vol]Ordered By: Rajan Moreland on 08-16-2023 Protein (U) [Mass/Vol] Negative Negative [facility] Protein Electro, Random Urin jordon 08-16-2023 Albumin, Urine 31.5 % Normal . [facility] Comment on above: Performed By: #### P P, ESR, CK, ADDONUAPLUS, CRP, CMP, TSH3, CBC, T4F #### [address] #### ALDOLASE, FRANCISCO,URINE, UPE RAND, SPE, RPR W RFX, FRANCISCO SERUM #### [facility] , Ryggn-4-Gyptavcd, Urine 4.2 % Normal . [facility] Comment on above: Performed By: #### P P, ESR, CK, ADDONUAPLUS, CRP, CMP, TSH3, CBC, T4F #### [facility] [address] [place] [address] #### ALDOLASE, FRANCISCO,URINE, UPE RAND, SPE, RPR W RFX, FRANCISCO SERUM #### [facility] , Vykze-2-Vbpvqqvd, Urine 21.3 % Normal . [facility] Comment on above: Performed By: #### P P, ESR, CK, ADDONUAPLUS, CRP, CMP, TSH3, CBC, T4F #### [address] #### ALDOLASE, FRANCISCO,URINE, UPE RAND, SPE, RPR W RFX, FRANCISCO SERUM #### [facility] , Beta Globulin, Urine 22.8 % Normal . [facility] Comment on above: Performed By: #### P P, ESR, CK, ADDONUAPLUS, CRP, CMP, TSH3, CBC, T4F #### [address] #### ALDOLASE, FRANCISCO,URINE, UPE RAND, SPE, RPR W RFX, FRANCISCO SERUM #### [facility] , Gamma Globulin, Urine 20.2 % Normal . [facility] Comment on above: Performed By: #### P P, ESR, CK, ADDONUAPLUS, CRP, CMP, TSH3, CBC, T4F #### [address] #### ALDOLASE, FRANCISCO,URINE, UPE RAND, SPE, RPR W RFX, FRANCISCO SERUM #### [facility] , M-Ancelmo % Not Observed Normal Not Observed [facility] Comment on above: Performed By: #### P P, ESR, CK, ADDONUAPLUS, CRP, CMP, TSH3, CBC, T4F #### [address] #### ALDOLASE, FRANCISCO,URINE, UPE RAND, SPE, RPR W RFX, FRANCISCO SERUM #### [facility] , Please Note: Normal . [facility] Comment on above: Result Comment: Prot ein electrophoresis scan will follow via computer, mail, or production stage manager delivery. Performed at: [facility] [address] [id number] Propagator Laborer: Scott Freedman PhD, Phone: [phone] PERFORMED BY: [place] [address] PATHOLOGIST RN CRITICAL CARE LUZ ELENA MEDINA M.D. Performed By: #### P P, ESR, CK, ADDONUAPLUS, CRP, CMP, TSH3, CBC, T4F #### [address] #### ALDOLASE, FRANCISCO,URINE, UPE RAND, SPE, RPR W RFX, FRANCISCO SERUM #### [facility] , Protein Electro, Random Urin eOrdered By: Rajan Moreland on 08-16-2023 Protein (U) [Mass/Vol] 8.8 mg/dL Not Estab. [facility] Comment on above: Performed By: #### P P, ESR, CK, ADDONUAPLUS, CRP, CMP, TSH3, CBC, T4F #### [address] #### ALDOLASE, FRANCISCO,URINE, UPE RAND, SPE, RPR W RFX, FRANCISCO SERUM #### [facility] , Protein Electrophoresis, Ser umOrdered By: Rajan Moreland on 08-16-2023 Albumin [Mass/Vol] 4.2 g/dL 2.9-4.4 [facility] Comment on above: Performed By: #### P P, ESR, CK, ADDONUAPLUS, CRP, CMP, TSH3, CBC, T4F #### [address] #### ALDOLASE, FRANCISCO,URINE, UPE RAND, SPE, RPR W RFX, FRANCISCO SERUM #### [facility] , Albumin/Globulin [Mass ratio] 1.3 {ratio} 0.7-1.7 [facility] Comment on above: Performed By: #### P P, ESR, CK, ADDONUAPLUS, CRP, CMP, TSH3, CBC, T4F #### [address] #### ALDOLASE, FRANCISCO,URINE, UPE RAND, SPE, RPR W RFX, FRANCISCO SERUM #### [facility] , Globulin (S) [Mass/Vol] 3.3 g/dL 2.2-3.9 [facility] Comment on above: Performed By: #### P P, ESR, CK, ADDONUAPLUS, CRP, CMP, TSH3, CBC, T4F #### [address] #### ALDOLASE, FRANCISCO,URINE, UPE RAND, SPE, RPR W RFX, FRANCISCO SERUM #### [facility] , Protein [Mass/Vol] 7.5 g/dL 6.0-8.5 [facility] Comment on above: Performed By: #### P P, ESR, CK, ADDONUAPLUS, CRP, CMP, TSH3, CBC, T4F #### [address] #### ALDOLASE, FRANCISCO,URINE, UPE RAND, SPE, RPR W RFX, FRANCISCO SERUM #### [facility] , Protein Electrophoresis, Ser umon 08-16-2023 Ceruu-9-Yfzyoqxz 0.3 g/dL Normal 0.0-0.4 [facility] Comment on above: Performed By: #### P P, ESR, CK, ADDONUAPLUS, CRP, CMP, TSH3, CBC, T4F #### [address] #### ALDOLASE, FRANCISCO,URINE, UPE RAND, SPE, RPR W RFX, FRANCISCO SERUM #### [facility] , Vmelk-3-Lslaghon 0.7 g/dL Normal 0.4-1.0 [facility] Comment on above: Performed By: #### P P, ESR, CK, ADDONUAPLUS, CRP, CMP, TSH3, CBC, T4F #### [place] [address] [place] #### ALDOLASE, FRANCISCO,URINE, UPE RAND, SPE, RPR W RFX, FRANCISCO SERUM #### [facility] , Beta Globulin 1.1 g/dL Normal 0.7-1.3 [facility] Comment on above: Performed By: #### P P, ESR, CK, ADDONUAPLUS, CRP, CMP, TSH3, CBC, T4F #### [address] #### ALDOLASE, FRANCISCO,URINE, UPE RAND, SPE, RPR W RFX, FRANCISCO SERUM #### [facility] , Gamma Globulin 1.2 g/dL Normal 0.4-1.8 [facility] Comment on above: Performed By: #### P P, ESR, CK, ADDONUAPLUS, CRP, CMP, TSH3, CBC, T4F #### [address] #### ALDOLASE, FRANCISCO,URINE, UPE RAND, SPE, RPR W RFX, FRANCISCO SERUM #### [facility] , M-Ancelmo Not Observed Normal Not Observed [facility] Comment on above: Performed By: #### P P, ESR, CK, ADDONUAPLUS, CRP, CMP, TSH3, CBC, T4F #### [address] #### ALDOLASE, FRANCISCO,URINE, UPE RAND, SPE, RPR W RFX, FRANCISCO SERUM #### [facility] , SPE-Note Normal . [facility] Comment on above: Result Comment: Prot ein electrophoresis scan will follow via computer, mail, or production stage manager delivery. Performed By: #### P P, ESR, CK, ADDONUAPLUS, CRP, CMP, TSH3, CBC, T4F #### [address] #### ALDOLASE, FRANCISCO,URINE, UPE RAND, SPE, RPR W RFX, FRANCISCO SERUM #### [facility] , Protein [Mass/volume] in Ser um or PlasmaOrdered By: Rajan Moreland on 08-16-2023 Protein [Mass/Vol] 7.6 g/dL 6.4-8.9 [facility] Comment on above: Performed By: #### P P, ESR, CK, ADDONUAPLUS, CRP, CMP, TSH3, CBC, T4F #### [facility] [address] #### ALDOLASE, FRANCISCO,URINE, UPE RAND, SPE, RPR W RFX, FRANCISCO SERUM #### [facility] , Protein.monoclonal/Protein.t otal in 24 hour Urine by ElectrophoresisOrdered By: Rjaan Pascualrow on 08-16-2023 Protein.monoclonal Elph (24H U) [Mass fraction] Not observed % Not Observed [facility] Prothrombin time (PT)Ordered By: Rajan Moreland on 08-16-2023 PT Coag (PPP) [Time] 9.8 s 9.0-12.9 [facility] Comment on above: A hematocrit value g reater than 55% may lead to inaccurate results in coagulation testing. Patients having hematocrit values >55% require a special collection tube for coagulation studies. Please contact the laboratory at [phone] for redraw instructions. Result Comment: A he matocrit value greater than 55% may lead to inaccurate results in coagulation testing. Patients having hematocrit values >55% require a special collection tube for coagulation studies. Please contact the laboratory at [phone] for redraw instructions. Performed By: #### P P, ESR, CK, ADDONUAPLUS, CRP, CMP, TSH3, CBC, T4F #### [facility] [address] [place] [address] [place] #### ALDOLASE, FRANCISCO,URINE, UPE RAND, SPE, RPR W RFX, FRANCISCO SERUM #### [facility] , RPR w/rfx to Quant TP Abson 08-16-2023 RPR, Rfx Quant RPR Non-Reactive Normal Non Reactive [facility] Comment on above: Result Comment: Perf ormed at: - [facility] [place] [address] [place], [place] [id number] Propagator Laborer: Scott Freedman PhD, Phone: [phone] PERFORMED BY: [place] [address] PATHOLOGIST RN CRITICAL CARE LUZ ELENA MEDINA M.D. Performed By: #### P P, ESR, CK, ADDONUAPLUS, CRP, CMP, TSH3, CBC, T4F #### [facility] [address] [place] [address] #### ALDOLASE, FRANCISCO,URINE, UPE RAND, SPE, RPR W RFX, FRANCISCO SERUM #### [facility] , Reagin Ab [Presence] in Seru m by RPROrdered By: Rajan Moreland on 08-16-2023 Reagin Ab RPR Ql (S) Non-Reactive Non Reactive [facility] Comment on above: Performed at: - [facility] [id number] [place] [id number] Director: Scott Freedman PhD, Phone: [phone] Screening dilute [facility] v iper venom time (DRVVT) with reflex to confirmatory testOrdered By: Rajan Moreland on 08-16-2023 dRVVT Coag (PPP) [Time] 31.4 s 0.0-47.0 F [facility] Screening lupus anticoagulan t-sensitive activated partial thromboplastin time (aPTT)Ordered By: Rajan Moreland on 08-16-2023 aPTT.lupus sensitive Coag (PPP) [Time] 28.4 sec 0.0-43.5 [facility] Serum globulin measurement b y calculation (mass/volume)Ordered By: Rajan Moreland on 08-16-2023 Globulin (S) [Mass/Vol] 3.0 g/dL F [facility] Comment on above: Performed By: #### P P, ESR, CK, ADDONUAPLUS, CRP, CMP, TSH3, CBC, T4F #### [facility] [address] [place] [address] #### ALDOLASE, FRANCISCO,URINE, UPE RAND, SPE, RPR W RFX, FRANCISCO SERUM #### [facility] , Serum homogeneous pattern an tinuclear antibody (TONJA) titerOrdered By: Rajan Moreland on 08-16-2023 Homogenous nuclear Ab pattern (S) [Titer] N/A [facility] Serum nuclear antibody titer Ordered By: Rajan Moreland on 08-16-2023 Nuclear Ab (S) [Titer] Negative . [facility] Comment on above: Negative <1:80 Borde rline 1:80 Positive >1:80ICAP nomenclature: [id number] more information about Hep-2 cell patterns useANApatterns.org, the official website for theInternational Consensus on Antinuclear Antibody (TONJA)Patterns (ICAP).Performed at: [facility] [place] [id number] Director: Scott Freedman PhD, Phone: [phone] Serum or plasma albumin/glob ulin mass ratioOrdered By: Rajan Moreland on 08-16-2023 Albumin/Globulin [Mass ratio] 1.5 {ratio} [facility] Comment on above: Performed By: #### P P, ESR, CK, ADDONUAPLUS, CRP, CMP, TSH3, CBC, T4F #### [facility] [address] #### ALDOLASE, FRANCISCO,URINE, UPE RAND, SPE, RPR W RFX, FRANCISCO SERUM #### [facility] , Serum or plasma alpha 1 glob ulin measurement by electrophoresis (mass/volume)Ordered By: Rajan Moreland on 08-16-2023 Alpha 1 globulin Elph [Mass/Vol] 0.3 g/dL 0.0-0.4 [facility] Serum or plasma alpha 2 glob ulin measurement by electrophoresis (mass/volume)Ordered By: Rajan Moreland on 08-16-2023 Alpha 2 globulin Elph [Mass/Vol] 0.7 g/dL 0.4-1.0 [facility] Serum or plasma anion gap de terminationOrdered By: Rajan Moreland on 08-16-2023 Anion gap [Moles/Vol] 10.8 mmol/L 6.0-15.0 [facility] Comment on above: Performed By: #### P P, ESR, CK, ADDONUAPLUS, CRP, CMP, TSH3, CBC, T4F #### [facility] [address] #### ALDOLASE, FRANCISCO,URINE, UPE RAND, SPE, RPR W RFX, FRANCISCO SERUM #### [facility] , Serum or plasma beta globuli n measurement by electrophoresis (mass/volume)Ordered By: Rajan Moreland on 08-16-2023 Beta globulin Elph [Mass/Vol] 1.1 g/dL 0.7-1.3 [facility] Serum or plasma chromatin an tibody assay (units/volume)Ordered By: Rajan Moreland on 08-16-2023 Chromatin Ab Qn 0.2 AI 0.0-0.9 [facility] Comment on above: Performed at: [facility] [place] [id number] Director: Soctt Freedman PhD, Phone: [phone] Serum or plasma complement C 3 measurement (mass/volume)Ordered By: Rajan Moreland on 08-16-2023 Complement C3 [Mass/Vol] 171 mg/dL 82-167 [facility] Comment on above: Performed at: [facility] [id number] Director: Scott Freedman PhD, Phone: [phone] Serum or plasma complement C 4 measurement (mass/volume)Ordered By: Rajan Moreland on 08-16-2023 Complement C4 [Mass/Vol] 27 mg/dL 12-38 [facility] Serum or plasma gamma globul in measurement by electrophoresis (mass/volume)Ordered By: Rajan Moreland on 08-16-2023 Gamma globulin Elph [Mass/Vol] 1.2 g/dL 0.4-1.8 [facility] Serum or plasma thyroglobuli n antibody assay (units/volume)Ordered By: Rajan Moreland on 08-16-2023 Thyroglobulin Ab Qn [IU]/mL 0.0-0.9 [facility] Comment on above: Thyroglobulin Antibo dy measured by IndiceeMethodologyIt should be noted that the presence of thyroglobulinantibodies may not be pathogenic nor diagnostic, especiallyat very low levels. The assay guide rail cleaner has found thatfour percent of individuals without evidence of thyroiddisease or autoimmunity will have positive TgAb levels upto 4 IU/mL.Performed at: [facility] [address] [id number] Director: Scott Freedman PhD, Phone: [phone] Serum or plasma thyroperoxid ase antibody assay (units/volume)Ordered By: Rajan Moreland on 08-16-2023 TPO Ab Qn 14 [IU]/mL 0-34 [facility] Comment on above: Performed at: [facility] [address] [id number] Director: Scott Freedman PhD, Phone: [phone] Sodium [Moles/volume] in Ser um or PlasmaOrdered By: Rajan Moreland on 08-16-2023 Sodium [Moles/Vol] 137 mmol/L 136-145 [facility] Comment on above: Performed By: #### P P, ESR, CK, ADDONUAPLUS, CRP, CMP, TSH3, CBC, T4F #### [facility] [address] #### ALDOLASE, FRANCISCO,URINE, UPE RAND, SPE, RPR W RFX, FRANCISCO SERUM #### [facility] , Specific gravity Auto test s trip (U) [Rel density]Ordered By: Rajan Moreland on 08-16-2023 Specific gravity (U) [Rel density] 1.024 1.001-1.[address] [facility] Squamous epithelial cells de tection in urine sediment by light microscopyOrdered By: Rajan Moreland on 08-16-2023 Epithelial cells.squamous LM Ql (Urine sed) None seen [HPF] 0-2 [facility] TT plasOrdered By: Rajan torres on 08-16-2023 Thrombin time Coag (PPP) [Time] 18.8 sec 0.0-23.0 [facility] Thyroid Peroxidase Antibodie son 08-16-2023 Thyroid Peroxidase Antibodies 14 Normal 0-34 [facility] Comment on above: Result Comment: Perf ormed at: - [facility] [address] [id number] Propagator Laborer: Scott Freedman PhD, Phone: [phone] Performed By: #### P P, ESR, CK, ADDONUAPLUS, CRP, CMP, TSH3, CBC, T4F #### [address] #### ALDOLASE, FRANCISCO,URINE, UPE RAND, SPE, RPR W RFX, FRANCISCO SERUM #### [facility] , Thyrotropin [Units/volume] i n Serum or PlasmaOrdered By: Rajan Moreland on 08-16-2023 TSH Qn 1.48 m[IU]/L 0.45-5.33 [facility] Comment on above: Result Comment: PERF ORMED BY: [place] [address] PATHOLOGIST RN CRITICAL CARE LUZ ELENA MEDINA M.D. Performed By: #### P P, ESR, CK, ADDONUAPLUS, CRP, CMP, TSH3, CBC, T4F #### [address] #### ALDOLASE, FRANCISCO,URINE, UPE RAND, SPE, RPR W RFX, FRANCISCO SERUM #### [facility] , Thyroxine (T4) free [Mass/vo lume] in Serum or PlasmaOrdered By: Rajan Moreland on 08-16-2023 Free T4 [Mass/Vol] 0.86 ng/dL 0.61-1.12 [facility] Comment on above: Performed By: #### P P, ESR, CK, ADDONUAPLUS, CRP, CMP, TSH3, CBC, T4F #### [address] #### ALDOLASE, FRANCISCO,URINE, UPE RAND, SPE, RPR W RFX, FRANCISCO SERUM #### [facility] , Urea nitrogen [Mass/volume] in Serum or PlasmaOrdered By: Rajan Moreland on 08-16-2023 Urea nitrogen [Mass/Vol] 14 mg/dL 10-18 [facility] Comment on above: Performed By: #### P P, ESR, CK, ADDONUAPLUS, CRP, CMP, TSH3, CBC, T4F #### [facility] [address] #### ALDOLASE, FRANCISCO,URINE, UPE RAND, SPE, RPR W RFX, FRANCISCO SERUM #### [facility] , Urine alpha 1 globulin/total protein by electrophoresisOrdered By: Rajan Moreland on 08-16-2023 Alpha 1 globulin Elph (U) [Mass fraction] 4.2 % . [facility] Urine alpha 2 globulin/total protein ratio by electrophoresisOrdered By: Rajan Moreland on 08-16-2023 Alpha 2 globulin Elph (U) [Mass fraction] 21.3 % . [facility] Urine beta globulin measurem ent by electrophoresis (mass/volume)Ordered By: Rajan Moreland on 08-16-2023 Beta globulin Elph (U) [Mass/Vol] 22.8 % . [facility] Urine clarity by refractomet ry automatedOrdered By: Rajan Moreland on 08-16-2023 Clarity Refractometry automated (U) Clear Clear [facility] Urine glucose measurement by automated test strip (mass/volume)Ordered By: Rajan Moreland on 08-16-2023 Glucose Auto test strip (U) [Mass/Vol] 500 mg/dL Normal [facility] Urine hemoglobin detection b y automated test stripOrdered By: Rajan Moreland on 08-16-2023 Hemoglobin Auto test strip Ql (U) Negative Negative [facility] Urine leukocyte esterase det ection by automated test stripOrdered By: Rajan Moreland on 08-16-2023 Leukocyte esterase Auto test strip Ql (U) Negative Negative [facility] Urine pH measurement by auto mated test stripOrdered By: Rajan Moreland on 08-16-2023 pH (U) 6.5 [pH] 5.0-9.0 [facility] Comment on above: Order Comment: Name Collection Type:: Clean-Voided Midstream Performed By: #### P P, ESR, CK, ADDONUAPLUS, CRP, CMP, TSH3, CBC, T4F #### [facility] [address] #### ALDOLASE, FRANCISCO,URINE, UPE RAND, SPE, RPR W RFX, FRANCISCO SERUM #### [facility] , Urobilinogen Auto test strip (U) [Mass/Vol]Ordered By: Rajan Moreland on 08-16-2023 Urobilinogen (U) [Mass/Vol] Normal mg/dL Normal [facility] aPTT.lupus sensitive/aPTT.lindsay pus sensitive W excess phospholipid (screen to confirm raOrdered By: Rajan Moreland on 08-16-2023 aPTT.lupus sensitive/aPTT.lupus sensitive W excess phospholipid Coag (PPP) [Ratio] 1.16 Ratio 0.00-1.34 [facility] MR SHOULDER LEFT WO IV CONTR Dhaval 07-12-2023 MR SHOULDER LEFT WO IV CONTRAST EXAM: MR SHOULDER LEFT WO IV CONTRAST HISTORY: Shoulder pain. S/P arthroscopic biceps tenodesis, debridement, chondroplasty, capsular release, subacromial decompression. TECHNIQUE: Multiplanar multisequence MRI of the shoulder was performed Without contrast. COMPARISON: Shoulder MRI November 29, 2022 FINDINGS: Mild degenerative changes of the acromioclavicular joint without undersurface osteophyte formation. Lateral downsloping of the acromion. The acromion is curved. Coracoclavicular ligament intact. No subacromial/subdeltoid bursal fluid. Low-grade intrasubstance tearing of the distal anterior half of supraspinatus tendon superimposed on severe tendinosis. Mild infraspinatus and subscapularis tendinosis. No atrophy or fatty infiltration of the rotator cuff musculature. Postsurgical changes of biceps tenodesis. The biceps tendon resides within the bicipital groove. Diffuse labral degeneration without definitive labral tear. High-grade partial-thickness cartilage loss of the medial humeral head and posterior third of the glenoid with interval development of small foci of subcortical bone marrow edema of the posterior glenoid. Small glenohumeral joint effusion . IMPRESSION: Low-grade intrasubstance tearing of the distal anterior half of supraspinatus tendon superimposed on severe tendinosis. Mild infraspinatus and subscapularis tendinosis. Mild interval progression of glenohumeral osteoarthritis. ELECTRONICALLY SIGNED BY: Chava Robert, DO Normal Not Available Comment on above: Order Comment: Patie nt is Type 4 Diabetic Previous neck surgery Previous MRI 02/2023 Basophils Auto (Bld) [#/Vol] on 06-27-2023 Basophils (Bld) [#/Vol] 0.0 10 3/uL 0.0-0.1 [facility] Basophils/100 WBC Auto (Bld) on 06-27-2023 Basophils/100 WBC (Bld) 0.6 % 0.2-2.0 [facility] Eosinophils/100 WBC Auto (Bl d)on 06-27-2023 Eosinophils/100 WBC (Bld) 1.5 % 0.9-7.0 [facility] Erythrocyte distribution wid th Auto (RBC) [Ratio]on 06-27-2023 Erythrocyte distribution width (RBC) [Ratio] 12.5 % 11.0-15.0 [facility] Hematocrit Auto (Bld) [Volum e fraction]on 06-27-2023 Hematocrit (Bld) [Volume fraction] 43.9 % 42.0-54.0 [facility] Hemoglobin [Mass/volume] in Bloodon 06-27-2023 Hemoglobin (Bld) [Mass/Vol] 14.1 g/dL 14.0-18.0 [facility] Laboratory - Hematology and Cell countson 06-27-2023 ESR (Bld) [Velocity] 10 mm/h <=20 [facility] Immature granulocytes/100 WBC (Bld) 0.3 % 0.0-0.5 [facility] Leukocytes [#/volume] correc fabiola for nucleated erythrocytes in Blood by Automated counon 06-27-2023 WBC corrected for nucl RBC Auto (Bld) [#/Vol] 7.3 10 3/uL 4.0-11.0 [facility] Lymphocytes Auto (Bld) [#/Vo l]on 06-27-2023 Lymphocytes (Bld) [#/Vol] 1.0 10 3/uL 1.2-3.8 [facility] Lymphocytes/100 WBC Auto (Bl d)on 06-27-2023 Lymphocytes/100 WBC (Bld) 13.7 % 20.5-60.0 [facility] MCH Auto (RBC) [Entitic mass ]on 06-27-2023 MCH (RBC) [Entitic mass] 27.1 pg 25.9-34.0 [facility] MCHC Auto (RBC) [Mass/Vol]on 06-27-2023 MCHC (RBC) [Mass/Vol] 32.1 g/dL 29.9-35.2 [facility] MCV Auto (RBC) [Entitic vol] on 06-27-2023 MCV (RBC) [Entitic vol] 84.3 fL 80.0-94.0 [facility] Monocytes Auto (Bld) [#/Vol] on 06-27-2023 Monocytes (Bld) [#/Vol] 0.4 10 3/uL 0.3-0.8 [facility] Monocytes/100 WBC Auto (Bld) on 06-27-2023 Monocytes/100 WBC (Bld) 6.1 % 1.7-12.0 [facility] Neutrophils Auto (Bld) [#/Vo l]on 06-27-2023 Neutrophils (Bld) [#/Vol] 5.7 10 3/uL 1.4-6.5 [facility] Neutrophils/100 WBC Auto (Bl d)on 06-27-2023 Neutrophils/100 WBC (Bld) 77.8 % 43.0-75.0 [facility] No Panel Informationon 06-26 Anti-Double Strand DNA Antibody 27 [IU]/mL 0-9 [facility] Comment on above: Negative <5 Equivoca l 5 - 9 Positive >9 Anti-Nuclear Antibody Interpret Comment . [facility] Comment on above: Autoantibody Disease Association Condition Frequency ---------Antinuclear Antibody, SLE, mixed connectiveDirect (TONJA-D) tissue diseases ---------dsDNA SLE 40 - 60% ---------Chromatin Drug induced SLE 90% SLE 48 - 97% ---------SSA (Ro) SLE 25 - 35% Sjogren's Syndrome 40 - 70% Lupus 100% ---------SSB (La) SLE 10% Sjogren's Syndrome 30% ---------Sm (anti-Kerr) SLE 15 - 30% ---------INVESTIGATIVE AGENT Mixed Connective Tissue Disease 95%(U1 nRNP, SLE 30 - 50%anti-ribonucleoprotein) Polymyositis and/or Dermatomyositis 20% ---------Scl-70 (antiDNA Scleroderma (diffuse) 20 - 35%topoisomerase) Crest 13% ---------Niru-1 Polymyositis and/or Dermatomyositis 20 - 40% ---------Centromere B Scleroderma - Crest variant 80%Performed at: [employer] [address] [id number] Director: Scott Freedman PhD, Phone: [phone] C-Reactive Protein, Quantitative <0.50 mg/dL <=0.50 [facility] Eosinophils # (Auto) 0.1 10 3/uL 0.0-0.7 [facility] Immature Granulocyte # (Auto) 0.02 10 3/uL 0.00-0.03 [facility] INVESTIGATIVE AGENT Antibody <0.2 AI 0.0-0.9 [facility] Platelet mean volume Auto (B ld) [Entitic vol]on 06-27-2023 Platelet mean volume (Bld) [Entitic vol] 9.0 fL 9.5-13.5 [facility] Platelets Auto (Bld) [#/Vol] on 06-27-2023 Platelets (Bld) [#/Vol] 296 10 3/uL 150-450 [facility] RBC Auto (Bld) [#/Vol]on RBC (Bld) [#/Vol] 5.21 10 6/uL 4.70-6.10 [facility] Serum Sjogrens syndrome-A ex tractable nuclear antibody assay (units/volume)on 06-27-2023 Sjogrens syndrome-A extractable nuclear Ab Qn (S) <0.2 AI 0.0-0.9 [facility] Serum Sjogrens syndrome-B ex tractable nuclear antibody assay (units/volume)on 06-27-2023 Sjogrens syndrome-B extractable nuclear Ab Qn (S) <0.2 AI 0.0-0.9 [facility] Serum Kerr extractable nucl ear antigen (ABAD) antibody assay (units/volume)on 06-27-2023 Kerr extractable nuclear Ab Qn (S) <0.2 AI 0.0-0.9 [facility] Serum or plasma cyclic adeno sine monophosphate measurement (moles/volume)on 06-27-2023 Adenosine monophosphate.cyclic [Moles/Vol] 3 units 0-19 [facility] Comment on above: Negative <20 Weak po sitive 20 - 39 Moderate positive 40 - 59 Strong positive >59Performed at: TL - [facility] [address] [id number] Director: Scott Freedman PhD, Phone: [phone] Serum or plasma free cefurox david measurement (mass/volume)on 06-27-2023 Cefuroxime free [Mass/Vol] Positive Negative [facility] Serum or plasma rheumatoid f actor measurement (units/volume)on 06-27-2023 Rheumatoid factor Qn [IU]/mL <14.0 [facility] Comment on above: Performed at: [facility] - [facility] [address] [id number] Director: Scott Freedman PhD, Phone: [phone] CHEMISTRYOrdered By: Lab ROP User on 04-07-2023 Glucose [Mass/Vol] 203 mg/dL High 55 - 99 mg/dL [facility] [place] Comment on above: Result Comment: No C overage Given Cleaned Meter POC Device SN [id number] Invalid Interpretation Code [facility] Subsection POC User ID [id number] Invalid Interpretation Code [facility] [place] POC Username MILLA BENDER Invalid Interpretation Code [facility] Subsection XR Chest 2 Viewson 3 [...] effusion is evident. Partially included within the [id number] is metallic surgical hardware associated with the lower cervical spine. Ordering Provider: Peralta Ahmad FINAL REPORT Dictated: 03/24/2023 11:49 am Joe Aguilar M.D. Signed (Electronic Signature): 03/24/2023 11:49 am Signed by: Joe Aguilar M.D. Transcribed by: SALVADOR Technologist: LETICIA Technical Comments Radiation Dose: Ka,r in mGy = na DAP = na Normal [facility] Auto Diffon 03-23-2023 Basophils/100 WBC (Bld) 0.6 % Normal 0.0-2.0 [facility] Comment on above: Order Comment: Order Added by Discern Expert. Performed By: #### 2 [id number], [id number], [id number], [id number] #### [facility] [address] [place] [address] Basophils/Leukocytes Auto (Bld) [Pure # fraction] 0.0 E9/L Normal 0.0-0.2 [facility] Comment on above: Order Comment: Order Added by Discern Expert. Performed By: #### 2 661171, 5566067, 5156669, [id number] #### [facility] [address] [place] [address] Eosinophils/100 WBC (Bld) 1.8 % Normal 0.0-8.0 [facility] Comment on above: Order Comment: Order Added by Discern Expert. Performed By: #### 2 018822, 9862645, 0153800, [id number] #### [facility] [address] [place] [address] Eosinophils/Leukocytes Auto (Bld) [Pure # fraction] 0.1 E9/L Normal 0.0-0.5 [facility] Comment on above: Order Comment: Order Added by Discern Expert. Performed By: #### 2 030203, 5379934, 7020630, [id number] #### [facility] [address] [place] [address] Lymphocytes/100 WBC (Bld) 19.3 % Normal 14.0-50.0 [facility] Comment on above: Order Comment: Order Added by Discern Expert. Performed By: #### 2 212419, 7105016, 7745017, [id number] #### [facility] [address] [place] [address] Lymphocytes/Leukocytes Auto (Bld) [Pure # fraction] 1.3 E9/L Normal 1.0-4.0 [facility] Comment on above: Order Comment: Order Added by Discern Expert. Performed By: #### 2 173038, 9679700, 8355905, [id number] #### [facility] [address] [place] [address] Monocytes/100 WBC (Bld) 8.4 % Normal 4.0-14.0 [facility] Comment on above: Order Comment: Order Added by Discern Expert. Performed By: #### 2 448980, 3162648, 3596323, [id number] #### [facility] [address] [place] [address] Monocytes/Leukocytes Auto (Bld) [Pure # fraction] 0.6 E9/L Normal 0.2-1.0 [facility] Comment on above: Order Comment: Order Added by Discern Expert. Performed By: #### 2 202552, 0170846, 8953902, [id number] #### [facility] [address] [place] [address] Neutrophils/100 WBC (Bld) 69.9 % Normal 36.0-75.0 [facility] Comment on above: Order Comment: Order Added by Discern Expert. Performed By: #### 2 133036, 7626093, 8575871, [id number] #### [facility] [address] [place] [address] Neutrophils/Leukocytes Auto (Bld) [Pure # fraction] 4.6 E9/L Normal 2.0-7.5 [facility] Comment on above: Order Comment: Order Added by Discern Expert. Performed By: #### 2 723221, 9424898, 0404627, [id number] #### [facility] [address] [place] [address] BMPon 03-23-2023 Anion gap [Moles/Vol] 10 mmol/L Normal 6-16 [facility] Comment on above: Performed By: #### 2 669654, 2930860, 7004400, [id number] #### [facility] [address] [place] [address] BUN/Creat Ratio 18 No Units Normal 10-20 [facility] Comment on above: Performed By: #### 2 098826, 4652093, 9401184, 88639261 #### [facility] [address] [place] [address] Calcium [Mass/Vol] 9.6 mg/dL Normal 8.9-11.1 [facility] Comment on above: Performed By: #### 2 070420, 3587503, 7712845, 89956462 #### [facility] [address] [place] [address] Chloride [Moles/Vol] 103 mmol/L Normal 101-111 [facility] Comment on above: Performed By: #### 2 962640, 4147536, 5974882, 23010613 #### [facility] [address] [place] [address] CO2 [Moles/Vol] 31 mmol/L Normal 21-31 [facility] Comment on above: Performed By: #### 2 094921, 3492085, 8017833, 51764632 #### [facility] [address] [place] [address] Creatinine [Mass/Vol] 0.8 mg/dL Normal 0.5-1.3 [facility] Comment on above: Performed By: #### 2 981266, 6149996, 9347709, 84066797 #### [facility] [address] [place] [address] Glucose [Mass/Vol] 169 mg/dL Normal 55-199 [facility] Comment on above: Performed By: #### 2 584637, 0956069, 0175275, 64010131 #### [facility] [address] [place] [address] Potassium [Moles/Vol] 4.3 mmol/L Normal 3.5-5.3 [facility] Comment on above: Performed By: #### 2 592744, 4068541, 2966308, 40987942 #### [facility] [address] [place] [address] Sodium [Moles/Vol] 140 mmol/L Normal 135-145 [facility] Comment on above: Performed By: #### 2 738864, 6920960, 7143809, 30129570 #### [facility] [address] [place] [address] Urea nitrogen [Mass/Vol] 14 mg/dL Normal 5-21 [facility] Comment on above: Performed By: #### 2 184563, 4860457, 8176491, 97495817 #### [facility] [address] [place] [address] CBC w/ Auto Diffon 3 Erythrocyte distribution width (RBC) [Ratio] 13.7 % Normal 10.9-14.2 [facility] Comment on above: Performed By: #### 2 475119, 9849222, 3687326, 52272603 #### [facility] [address] [place] [address] Hematocrit (Bld) [Volume fraction] 43.0 % Normal 37.7-49.0 [facility] Comment on above: Performed By: #### 2 200325, 2347498, 7991289, 34389029 #### [facility] [address] [place] [address] Hemoglobin (Bld) [Mass/Vol] 14.6 g/dL Normal 13.5-17.5 [facility] Comment on above: Performed By: #### 2 195473, 4180824, 9834678, 84739830 #### [facility] [address] [place] [address] MCH (RBC) [Entitic mass] 28.3 pg Normal 27.0-34.0 [facility] Comment on above: Performed By: #### 2 240438, 3862329, 4340548, 62427954 #### [facility] [address] [place] [address] MCHC (RBC) [Mass/Vol] 33.9 g/dL Normal 31.4-36.0 [facility] Comment on above: Performed By: #### 2 194072, 6990412, 2021127, 30828131 #### [facility] [address] [place] [address] MCV (RBC) [Entitic vol] 83.3 fL Normal 80.0-100.0 [facility] Comment on above: Performed By: #### 2 067140, 5598919, 6734012, 65705301 #### [facility] [address] [place] [address] Platelet mean volume (Bld) [Entitic vol] 7.4 fL Normal 6.4-10.8 [facility] Comment on above: Performed By: #### 2 556330, 4904813, 3685924, 20109110 #### [facility] [address] [place] [address] Platelets (Bld) [#/Vol] 315.0 E9/L Normal 150. 0-500. 0 [facility] Comment on above: Performed By: #### 2 709619, 8486843, 6649130, 58819701 #### [facility] [address] [place] [address] RBC (Bld) [#/Vol] 5.2 E12/L Normal 4.3-5.9 [facility] Comment on above: Performed By: #### 2 673753, 1262689, 3764264, 92194481 #### [facility] [address] [place] [address] WBC corrected for nucl RBC Auto (Bld) [#/Vol] 6.6 E9/L Normal 4.0-11.0 [facility] Comment on above: Performed By: #### 2 289113, 2033622, 6093481, 12497305 #### [facility] [address] [place] [address] CHEMISTRYOrdered By: SYSTEM SYSTEM on 03-23-2023 Anion gap [Moles/Vol] 10 mmol/L Normal 6 - 16 mEq/L [facility] Calcium [Mass/Vol] 9.6 mg/dL Normal 8.9 - 11. 1 mg/dL [facility] Chloride [Moles/Vol] 103 mmol/L Normal 101 - 1 11 mmol/L [facility] CO2 [Moles/Vol] 31 mmol/L Normal 21 - 31 mmol/L [facility] Creatinine [Mass/Vol] 0.8 mg/dL Normal 0.5 - 1.3 mg/dL [facility] eGFR mL/min/1.73 m2 Normal >=59mL/min /1.73 m2 [facility] Glucose [Mass/Vol] 169 mg/dL [...] Consent for Treatmenton 02-25 Consent for Treatment [id number] Normal [facility] HEMATOLOGYOrdered By: SYSTEM SYSTEM on 03-23-2023 Basophils/100 WBC (Bld) 0.6 % Normal 0.0 - 2.0 % [facility] Basophils/Leukocytes Auto (Bld) [Pure # fraction] 0.0 E9/L Normal 0.0 - 0.2 E9/L [facility] Eosinophils/100 WBC (Bld) 1.8 % Normal 0.0 - 8.0 % [facility] Eosinophils/Leukocytes Auto (Bld) [Pure # fraction] 0.1 E9/L Normal 0.0 - 0.5 E9/L [facility] Lymphocytes/100 WBC (Bld) 19.3 % Normal 14.0 - 50.0 % [facility] Lymphocytes/Leukocytes Auto (Bld) [Pure # fraction] 1.3 E9/L Normal 1.0 - 4.0 E9/L [facility] Monocytes/100 WBC (Bld) 8.4 % Normal 4.0 - 14.0 % [facility] Monocytes/Leukocytes Auto (Bld) [Pure # fraction] 0.6 E9/L Normal 0.2 - 1.0 E9/L [facility] Neutrophils/100 WBC (Bld) 69.9 % Normal 36.0 - 75.0 % [facility] Neutrophils/Leukocytes Auto (Bld) [Pure # fraction] 4.6 E9/L Normal 2.0 - 7.5 E9/L [facility] HEMATOLOGYOrdered By: Cher Echeverria on 03-23-2023 Erythrocyte distribution width (RBC) [Ratio] 13.7 % Normal 10.9 - 14.2 % [facility] Hematocrit (Bld) [Volume fraction] 43.0 % Normal 37.7 - 49.0 % [facility] Hemoglobin (Bld) [Mass/Vol] 14.6 g/dL Normal 13.5 - 17.5 gm/dL [facility] MCH (RBC) [Entitic mass] 28.3 pg Normal 27. 0 - 34.0 pg [facility] MCHC (RBC) [Mass/Vol] 33.9 g/dL Normal 31.4 - 36.0 gm/dL [facility] MCV (RBC) [Entitic vol] 83.3 fL Normal 80.0 - 100.0 fL [facility] Platelet mean volume (Bld) [Entitic vol] 7.4 fL Normal 6.4 - 10.8 fL [facility] Platelets (Bld) [#/Vol] 315.0 E9/L Normal 150. 0 - 500.0 E9/L [facility] RBC (Bld) [#/Vol] 5.2 E12/L Normal 4.3 - 5.9 E12/L [facility] WBC corrected for nucl RBC Auto (Bld) [#/Vol] 6.6 E9/L Normal 4.0 - 11.0 E9/L [facility] eGFRon 03-23-2023 GFR/1.73 sq M.predicted among non-blacks MDRD (S/P/Bld) [Vol rate/Area] mL/min/{1.73_m2} Normal >=59 [facility] Comment on above: Order Comment: Order added by Discern Expert. Performed By: #### 2 064215, 2036574, 3909923, [id number] #### [facility] [address] [place] [address] CBC W MANUAL DIFFon 06-21-19 23 ATYPICAL LYMPH # Normal [facility] Comment on above: Performed By: #### C BC #### [facility] [address] [place] [address] Dr. Wai Vallejo ATYPICAL LYMPH % Normal [facility] Comment on above: Performed By: #### C BC #### [facility] [address] [place] [address] Dr. Wai Vallejo BAND # 0.0 103/ul Normal 0.0-0.3 [facility] Comment on above: Performed By: #### C BC #### [facility] [address] [place] [address] Dr. Wai Vallejo BAND % 0 % Normal 0-5 [facility] Comment on above: Performed By: #### C BC #### [facility] [address] [place] [address] Dr. Wai Vallejo BASOM # 0.00 103/ul Normal 0.00-0.10 [facility] Comment on above: Performed By: #### C BC #### [facility] [address] [place] [address] Dr. Wai Vallejo BASOM % 0.0 % Critically low 0.2-2.0 [facility] Comment on above: Performed By: #### C BC #### [facility] [address] [place] [address] Dr. Wai Vallejo BLAST # Normal [facility] Comment on above: Performed By: #### C BC #### [facility] [address] [place] [address] Dr. Wai Valleoj BLAST % Normal [facility] Comment on above: Performed By: #### C BC #### [facility] [address] [place] [address] Dr. Wai Vallejo CORRECTED WBC Normal 4.0-11.0 [facility] Comment on above: Performed By: #### C BC #### [facility] [address] [place] [address] Dr. Wai Vallejo EOS # 0.00 103/ul Normal 0.00-0.70 [facility] Comment on above: Performed By: #### C BC #### [facility] [address] [place] [address] Dr. Wai Vallejo EOS% 0.0 % Critically low 0.9-7.0 [facility] Comment on above: Performed By: #### C BC #### [facility] [address] [place] [address] Dr. Wai Vallejo HCT 40.4 % Critically low 42.0-54.0 [facility] Comment on above: Performed By: #### C BC #### [facility] [address] [place] [address] Dr. Wai Vallejo HGB 13.8 g/dl Critically low 14.0-18.0 [facility] Comment on above: Performed By: #### C BC #### [facility] [address] [place] [address] Dr. Wai Vallejo LYMPHM # 0.62 103/ul Critically low 1.20-3.80 [facility] Comment on above: Performed By: #### C BC #### [facility] [address] [place] [address] Dr. Wai Vallejo LYMPHM% 6.0 % Critically low 20.5-60.0 [facility] Comment on above: Performed By: #### C BC #### [facility] [address] [place] [address] Dr. Wai Vallejo MCH 28.2 pg Normal 25.9-34.0 [facility] Comment on above: Performed By: #### C BC #### [facility] [address] [place] [address] Dr. Wai Vallejo MCHC 34.2 g/dl Normal 29.9-35.2 [facility] Comment on above: Performed By: #### C BC #### [facility] [address] [place] [address] Dr. Wai Vallejo MCV 82.4 fL Normal 80.0-94.0 [facility] Comment on above: Performed By: #### C BC #### [facility] [address] [place] [address] Dr. Wai Vallejo METAMYELOCYTE # Normal [facility] Comment on above: Performed By: #### C BC #### [facility] [address] [place] [address] Dr. Wai Vallejo METAMYELOCYTE % Normal [facility] Comment on above: Performed By: #### C BC #### [facility] [address] [place] [address] Dr. Wai Vallejo MONOM# 0.52 103/ul Normal 0.30-0.80 [facility] Comment on above: Performed By: #### C BC #### [facility] [address] [place] [address] Dr. Wai Vallejo MONOM% 5.0 % Normal 1.7-12.0 [facility] Comment on above: Performed By: #### C BC #### [facility] [address] [place] [address] Dr. Wai Vallejo MPV 9.6 fL Normal 9.5-13.5 [facility] Comment on above: Performed By: #### C BC #### [facility] [address] [place] [address] Dr. Wai Vallejo MYELOCYTE # Normal [facility] Comment on above: Performed By: #### C BC #### [facility] [address] [place] [address] Dr. Wai Vallejo MYELOCYTE % Normal [facility] Comment on above: Performed By: #### C BC #### [facility] [address] [place] [address] Dr. Wai Vallejo NRBC Normal [facility] Comment on above: Performed By: #### C BC #### [facility] [address] [place] [address] Dr. Wai Vallejo PLT 268 103/ul Normal 150-450 [facility] Comment on above: Performed By: #### C BC #### [facility] [address] [place] [address] Dr. Wai Vallejo RBC 4.90 106/ul Normal 4.70-6.10 [facility] Comment on above: Performed By: #### C BC #### [facility] [address] [place] [address] Dr. Wai Vallejo RDW 12.3 % Normal 11.0-15.0 [facility] Comment on above: Performed By: #### C BC #### [facility] [address] [place] [address] Dr. Wai Vallejo SEG # 9.17 103/ul Critically high 1.40-6.50 [facility] Comment on above: Performed By: #### C BC #### [facility] [address] [place] [address] Dr. Wai Vallejo SEG % 89.0 % Critically high 43.0-75.0 [facility] Comment on above: Performed By: #### C BC #### [facility] [address] [place] [address] Dr. Wai Vallejo WBC 10.3 103/ul Normal 4.0-11.0 [facility] Comment on above: Performed By: #### C BC #### [facility] [address] [address] [address] Wai Vallejo MRI BRAIN WO CONon MRI BRAIN WO CON EXAMINATION: MRI BRA IN WO CON, 06/19/2022 1:58 PM EDT HISTORY: [...] by: STEPHY DELANEY Date: 2022-06-20 08:23 Normal [facility] POINT OF CARE GLUCOSEon - Glucose [Mass/Vol] 318 mg/dL Critically high 74-106 [facility] Comment on above: Performed By: #### P OCGLUC #### [facility] [address] [place] [address] Dr. Wai Vallejo Glucose [Mass/Vol] 212 mg/dL Critically high -106 [facility] Comment on above: Performed By: #### P OCGLUC #### [facility] [address] [address] [address] Wai Vallejo Glucose [Mass/Vol] 359 mg/dL Critically high -106 [facility] Comment on above: Performed By: #### C BC #### [facility] [address] [place] [address] Dr. Wai Vallejo PROF CHEM 8 (BAS METB)on Anion gap [Moles/Vol] 12.0 mmol/L Normal [facility] Comment on above: Performed By: #### B MP #### [facility] [address] [place] [address] Dr. Wai Vallejo Calcium [Mass/Vol] 9.3 mg/dL Normal 8.5-10.1 [facility] Comment on above: Performed By: #### B MP #### [facility] [address] [place] [address] Dr. Wai Vallejo Chloride [Moles/Vol] 104 mmol/L Normal 98-107 [facility] Comment on above: Performed By: #### B MP #### [facility] [address] [address] [address] Wai Vallejo CO2 [Moles/Vol] 28.2 mmol/L Normal 21.0-32.0 [facility] Comment on above: Performed By: #### B MP #### [facility] [address] [place] [address] Dr. Wai Vallejo Creatinine [Mass/Vol] 0.85 mg/dL Normal 0.70-1.30 [facility] Comment on above: Performed By: #### B MP #### [facility] [address] [place] [address] Dr. Wai Vallejo EGFR-AF BRITISH >60 Normal >=60 [facility] Comment on above: Performed By: #### B MP #### [facility] [address] [place] [address] Dr. Wai Vallejo EGFR-NON AF BRITISH >60 Normal >=60 [facility] Comment on above: Performed By: #### B MP #### [facility] [address] [place] [address] Dr. Wai Vallejo Glucose [Mass/Vol] 263 mg/dL Critically high 74-106 [facility] Comment on above: Performed By: #### B MP #### [facility] [address] [place] [address] Dr. Wai Vallejo Potassium [Moles/Vol] 4.2 mmol/L Normal 3.5-5.1 [facility] Comment on above: Performed By: #### B MP #### [facility] [address] [place] [address] Dr. Wai Vallejo Sodium [Moles/Vol] 140 mmol/L Normal 136-145 [facility] Comment on above: Performed By: #### B MP #### [facility] [address] [address] [address] Wai Vallejo Urea nitrogen [Mass/Vol] 18.0 mg/dL Normal 7.0-18.0 [facility] Comment on above: Performed By: #### B MP #### [facility] [address] [address] [address] Wai Vallejo Urea nitrogen/Creatinine [Mass ratio] 21.2 mg/mg Normal [facility] Comment on above: Performed By: #### B MP #### [facility] [address] [address] [address] Wai Vallejo XR FOREIGN BODY EYEon 2022 XR FOREIGN BODY EYE EXAMINATION: XR FORE IGN BODY EYE HISTORY: Foreign body in eye COMPARISON: No relevant comparison available. FINDINGS: ORBITS: Negative for a metallic foreign body. OTHER: Negative. IMPRESSION: 1. No metallic foreign body within the orbits. Electronically authenticated by: STEPHY DELANEY Date: 2022-06-20 07:54 Normal [facility] CBC AUTO DIFFon 06-19-2022 BASO # 0.0 103/ul Normal 0.0-0.1 [facility] Comment on above: Performed By: #### C BC #### [facility] [address] [place] [address] Dr. Wai Vallejo Basophils/100 WBC (Bld) 0.4 % Normal 0.2-2.0 [facility] Comment on above: Performed By: #### C BC #### [facility] [address] [place] [address] Dr. Wai Vallejo EO # 0.0 103/ul Normal 0.0-0.7 [facility] Comment on above: Performed By: #### C BC #### [facility] [address] [place] [address] Dr. Wai Vallejo Eosinophils/100 WBC (Bld) 0.4 % Critically low 0.9-7.0 [facility] Comment on above: Performed By: #### C BC #### [facility] [address] [place] [address] Dr. Wai Vallejo Erythrocyte distribution width (RBC) [Ratio] 12.3 % Normal 11.0-15.0 [facility] Comment on above: Performed By: #### C BC #### [facility] [address] [place] [address] Dr. Wai Vallejo Hematocrit (Bld) [Volume fraction] 43.7 % Normal 42.0-54.0 [facility] Comment on above: Performed By: #### C BC #### [facility] [address] [place] [address] Dr. Wai Vallejo Hemoglobin (Bld) [Mass/Vol] 15.1 g/dL Normal 14.0-18.0 [facility] Comment on above: Performed By: #### C BC #### [facility] [address] [place] [address] Dr. Wai Vallejo IG # 0.01 10e3/ul Normal 0.00-0.03 [facility] Comment on above: Performed By: #### C BC #### [facility] [address] [place] [address] Dr. Wai Vallejo IG % 0.1 % Normal 0.0-0.5 [facility] [facility] Comment on above: Performed By: #### C BC #### [facility] [address] [place] [address] Dr. Wai Vallejo LYMPH # 1.2 103/ul Normal 1.2-3.8 [facility] Comment on above: Performed By: #### C BC #### [facility] [address] [place] [address] Dr. Wai Vallejo Lymphocytes/100 WBC (Bld) 14.6 % Critically low 20.5-60.0 [facility] Comment on above: Performed By: #### C BC #### [facility] [address] [place] [address] Dr. Wai Vallejo MANUAL DIFF REQ NO Normal [facility] Comment on above: Performed By: #### C BC #### [facility] [address] [place] [address] Dr. Wai Vallejo MCH (RBC) [Entitic mass] 28.3 pg Normal 25.9-34.0 [facility] Comment on above: Performed By: #### C BC #### [facility] [address] [place] [address] Dr. Wai Vallejo MCHC (RBC) [Mass/Vol] 34.6 g/dL Normal 29.9-35.2 [facility] Comment on above: Performed By: #### C BC #### [facility] [address] [place] [address] Dr. Wai Vallejo MCV (RBC) [Entitic vol] 81.8 fL Normal 80.0-94.0 [facility] Comment on above: Performed By: #### C BC #### [facility] [address] [place] [address] Dr. Wai Vallejo MONO # 0.5 103/ul Normal 0.3-0.8 [facility] Comment on above: Performed By: #### C BC #### [facility] [address] [place] [address] Dr. Wai Vallejo Monocytes/100 WBC (Bld) 6.5 % Normal 1.7-12.0 [facility] Comment on above: Performed By: #### C BC #### [facility] [address] [place] [address] Dr. Wai Vallejo NEUT # 6.5 103/ul Normal 1.4-6.5 [facility] Comment on above: Performed By: #### C BC #### [facility] [address] [place] [address] Dr. Wai Vallejo Neutrophils/100 WBC (Bld) 78.0 % Critically high 43.0-75.0 [facility] Comment on above: Performed By: #### C BC #### [facility] [address] [place] [address] Dr. Wai Vallejo Platelet mean volume (Bld) [Entitic vol] 9.0 fL Critically low 9.5-13.5 [facility] Comment on above: Performed By: #### C BC #### [facility] [address] [place] [address] Dr. Wai Vallejo PLT 310 103/ul Normal 150-450 [facility] Comment on above: Performed By: #### C BC #### [facility] [address] [address] [address] Wai Vallejo RBC 5.34 106/ul Normal 4.70-6.10 [facility] Comment on above: Performed By: #### C BC #### [facility] [id number] Wai Vallejo WBC 8.3 103/ul Normal 4.0-11.0 [facility] Comment on above: Performed By: #### C BC #### [facility] [id number] Wai Vallejo CT STROKE HEAD WOon 06-20-[address] STROKE HEAD WO HEAD CT WITHOUT CONT RAST: 06/19/2022 10:22 AM EDT Clinical Data: Headache [...] by: CHAVA ARMSTRONG Date: 2022-06-19 10:49 Normal [facility] CTA NECK WO W CONon 06-20-19 23 CTA NECK WO W CON EXAMINATION: CTA HEA D WO W CON, CTA NECK WO W [...] ALFONSO BELL Date: 2022-06-19 15:35 Normal [facility] Covid-19 PCR ([facility])on 05-26 SARS-CoV-2 (COVID-19) RNA TC+probe Ql (Unsp spec) Not detected Normal NOT DETECTED [facility] Comment on above: Result Comment: When diagnostic [...] for this test is supported by the Raise Driller of Health and Human Service's declaration that [...] used). Performed By: #### C BC #### [facility] [address] [place] [address] Dr. Wai Vallejo POINT OF CARE GLUCOSEon 05-26 Glucose [Mass/Vol] 511 mg/dL Critically high 74-106 T [facility] Comment on above: Result Comment: Will Repeat Test Performed By: #### P OCGLUC #### [facility] [address] [place] [address] Dr. Wai Vallejo Glucose [Mass/Vol] 489 mg/dL Critically high 74-106 [facility] Comment on above: Performed By: #### P OCGLUC #### [facility] [address] [place] [address] Dr. Wai Vallejo Glucose [Mass/Vol] 361 mg/dL Critically high 74-106 [facility] Comment on above: Performed By: #### C BC #### [facility] [address] [place] [address] Dr. Wai Vallejo PROF 14(COMP METB)on 023 Albumin [Mass/Vol] 4.1 g/dL Normal 3.4-5.0 [facility] Comment on above: Performed By: #### C MP #### [facility] [address] [place] [address] Dr. Wai Vallejo Albumin/Globulin [Mass ratio] 1.2 {ratio} Normal [facility] Comment on above: Performed By: #### C MP #### [facility] [address] [place] [address] Dr. Wai Vallejo ALP [Catalytic activity/Vol] 68 U/L Normal 46-116 [facility] Comment on above: Performed By: #### C MP #### [facility] [address] [place] [address] Dr. Wai Vallejo ALT [Catalytic activity/Vol] 33 U/L Normal 16-63 [facility] Comment on above: Performed By: #### C MP #### [facility] [address] [place] [address] Dr. Wai Vallejo Anion gap [Moles/Vol] 13.4 mmol/L Normal [facility] Comment on above: Performed By: #### C MP #### [facility] [address] [place] [address] Dr. Wai Vallejo AST [Catalytic activity/Vol] 21 U/L Normal 15-37 [facility] Comment on above: Performed By: #### C MP #### [facility] [address] [place] [address] Dr. Wai Vallejo Bilirubin [Mass/Vol] 1.5 mg/dL Critically high 0.2-1.0 [facility] Comment on above: Performed By: #### C MP #### [facility] [address] [place] [address] Dr. Wai Vallejo Calcium [Mass/Vol] 9.3 mg/dL Normal 8.5-10.1 [facility] Comment on above: Performed By: #### C MP #### [facility] [address] [address] [address] Wai Vallejo Chloride [Moles/Vol] 99 mmol/L Normal 98-107 [facility] Comment on above: Performed By: #### C MP #### [facility] [address] [place] [address] Dr. Wai Vallejo CO2 [Moles/Vol] 23.9 mmol/L Normal 21.0-32.0 [facility] Comment on above: Performed By: #### C MP #### [facility] [address] [place] [address] Dr. Wai Vallejo Creatinine [Mass/Vol] 0.87 mg/dL Normal 0.70-1.30 [facility] Comment on above: Performed By: #### C MP #### [facility] [address] [place] [address] Dr. Wai Vallejo EGFR-AF BRITISH >60 Normal >=60 [facility] Comment on above: Performed By: #### C MP #### [facility] [address] [place] [address] Dr. Wai Vallejo EGFR-NON AF BRITISH >60 Normal >=60 [facility] Comment on above: Performed By: #### C MP #### [facility] [address] [place] [address] Dr. Wai Vallejo Globulin (S) [Mass/Vol] 3.5 g/dL Normal [facility] Comment on above: Performed By: #### C MP #### [facility] [address] [place] [address] Dr. Wai Vallejo Glucose [Mass/Vol] 306 mg/dL Critically high 74-106 T [facility] Comment on above: Performed By: #### C MP #### [facility] [address] [address] [address] Wai Vallejo Potassium [Moles/Vol] 3.3 mmol/L Critically low 3.5-5.1 [facility] Comment on above: Performed By: #### C MP #### [facility] [address] [address] [address] Wai Vallejo Protein [Mass/Vol] 7.6 g/dL Normal 6.4-8.2 [facility] Comment on above: Performed By: #### C MP #### [facility] [address] [address] [address] Wai Vallejo Sodium [Moles/Vol] 133 mmol/L Critically low 136-145 Th [facility] Comment on above: Performed By: #### C MP #### [facility] [address] [place] [address] Dr. Wai Vallejo Urea nitrogen [Mass/Vol] 13.0 mg/dL Normal 7.0-18.0 [facility] Comment on above: Performed By: #### C MP #### [facility] [address] [address] [address] Wai Vallejo Urea nitrogen/Creatinine [Mass ratio] 14.9 mg/mg Normal [facility] Comment on above: Performed By: #### C MP #### [facility] [address] [place] [address] Dr. Wai Vallejo PROTIMEon 06-19-2022 INR Coag (PPP) [Relative time] 0.93 {INR} Normal [facility] Comment on above: Performed By: #### P TT, PT #### [facility] [address] [place] [address] Dr. Wai Vallejo INR GUIDELINES SEE BELOW Normal [facility] Comment on above: Result Comment: JUANCHO RED INR: 2.0 - 3.0 CONDITIONS NOT LISTED BELOW 2.5 - 3.5 FOR PROSTHETIC HEART VALVE REPLACEMENT 2.5 - 3.5 RECURRENT THROMBOSIS Performed By: #### P TT, PT #### [facility] [address] [place] [address] Dr. Wai Vallejo PT Coag (PPP) [Time] 9.9 s Normal 9.0-11.6 [facility] Comment on above: Performed By: #### P TT, PT #### [facility] [address] [place] [address] Dr. Wai Vallejo PTTon 06-19-2022 aPTT Coag (Bld) [Time] 25.2 s Normal 22.3-36.2 [facility] Comment on above: Performed By: #### P TT, PT #### [facility] [address] [place] [address] Dr. Wai Vallejo TESTOSTERONE, TOTALon 2021 Testosterone [Mass/Vol] 421 ng/dL Normal 264-916 [facility] Comment on above: Result Comment: Adul t male reference interval is based on a population of healthy nonobese males (BMI <30) between 19 and 39 years old. Pillo et.al. JCEM 2017,102;3854-5266. PMID: [id number]. Performed By: #### T ESTTOT #### [facility] [address] [place] [address] Dr. Wai Vallejo CBC AUTO DIFFon 02-19-2022 BASO # 0.0 103/ul Normal 0.0-0.1 [facility] Comment on above: Performed By: #### C BC #### [facility] [address] [place] [address] Dr. Wai Vallejo Basophils/100 WBC (Bld) 0.4 % Normal 0.2-2.0 [facility] Comment on above: Performed By: #### C BC #### [facility] [address] [place] [address] Dr. Wai Vallejo EO # 0.2 103/ul Normal 0.0-0.7 [facility] Comment on above: Performed By: #### C BC #### [facility] [address] [place] [address] Dr. Wai Vallejo Eosinophils/100 WBC (Bld) 2.6 % Normal 0.9-7.0 [facility] Comment on above: Performed By: #### C BC #### [facility] [address] [place] [address] Dr. Wai Vallejo Erythrocyte distribution width (RBC) [Ratio] 12.2 % Normal 11.0-15.0 [facility] Comment on above: Performed By: #### C BC #### [facility] [address] [place] [address] Dr. Wai Vallejo Hematocrit (Bld) [Volume fraction] 43.0 % Normal 42.0-54.0 [facility] Comment on above: Performed By: #### C BC #### [facility] [address] [place] [address] Dr. Wai Vallejo Hemoglobin (Bld) [Mass/Vol] 14.7 g/dL Normal 14.0-18.0 [facility] Comment on above: Performed By: #### C BC #### [facility] [address] [place] [address] Dr. Wai Vallejo IG # 0.02 10e3/ul Normal 0.00-0.03 [facility] Comment on above: Performed By: #### C BC #### [facility] [address] [place] [address] Dr. Wai Vallejo IG % 0.3 % Normal 0.0-0.5 [facility] Comment on above: Performed By: #### C BC #### [facility] [address] [place] [address] Dr. Wai Vallejo LYMPH # 1.4 103/ul Normal 1.2-3.8 [facility] Comment on above: Performed By: #### C BC #### [facility] [address] [place] [address] Dr. Wai Vallejo Lymphocytes/100 WBC (Bld) 19.8 % Critically low 20.5-60.0 [facility] Comment on above: Performed By: #### C BC #### [facility] [address] [place] [address] Dr. Wai Vallejo MANUAL DIFF REQ NO Normal [facility] Comment on above: Performed By: #### C BC #### [facility] [address] [place] [address] Dr. Wai Vallejo MCH (RBC) [Entitic mass] 28.5 pg Normal 25.9-34.0 [facility] Comment on above: Performed By: #### C BC #### [facility] [address] [place] [address] Dr. Wai Vallejo MCHC (RBC) [Mass/Vol] 34.2 g/dL Normal 29.9-35.2 [facility] Comment on above: Performed By: #### C BC #### [facility] [address] [place] [address] Dr. Wai Vallejo MCV (RBC) [Entitic vol] 83.5 fL Normal 80.0-94.0 [facility] Comment on above: Performed By: #### C BC #### [facility] [address] [place] [address] Dr. Wai Vallejo MONO # 0.5 103/ul Normal 0.3-0.8 [facility] Comment on above: Performed By: #### C BC #### [facility] [address] [place] [address] Dr. Wai Vallejo Monocytes/100 WBC (Bld) 6.9 % Normal 1.7-12.0 [facility] Comment on above: Performed By: #### C BC #### [facility] [address] [place] [address] Dr. Wai Vallejo NEUT # 5.1 103/ul Normal 1.4-6.5 [facility] Comment on above: Performed By: #### C BC #### [facility] [address] [place] [address] Dr. Wai Vallejo Neutrophils/100 WBC (Bld) 70.0 % Normal 43.0-75.0 [facility] Comment on above: Performed By: #### C BC #### [facility] [address] [place] [address] Dr. Wai Vallejo Platelet mean volume (Bld) [Entitic vol] 9.1 fL Critically low 9.5-13.5 [facility] Comment on above: Performed By: #### C BC #### [facility] [address] [address] [address] Wai Vallejo PLT 283 103/ul Normal 150-450 [facility] Comment on above: Performed By: #### C BC #### [facility] [address] [place] [address] Dr. Wai Vallejo RBC 5.15 106/ul Normal 4.70-6.10 [facility] Comment on above: Performed By: #### C BC #### [facility] [address] [place] [address] Dr. Wai Vallejo WBC 7.3 103/ul Normal 4.0-11.0 [facility] Comment on above: Performed By: #### C BC #### [facility] [address] [place] [address] Dr. Wai Vallejo GLYCOHEMOGLOBIN A1Con 2021 ADA RECOMMENDATION SEE BELOW Normal [facility] Comment on above: Result Comment: ADA RECOMMENDED LIMIT 4.0 - 6.0 ADA THERAPEUTIC TARGET < 7.0 ACTION SUGGESTED > 7.0 Performed By: #### A 1C #### [facility] [address] [place] [address] Dr. Wai Vallejo Glucose [Mass/Vol] 177 mg/dL Normal [facility] Comment on above: Performed By: #### A 1C #### [facility] [address] [place] [address] Dr. Wai Vallejo HbA1c (Bld) [Mass fraction] 7.8 % Critically high 4.5-6.2 [facility] Comment on above: Performed By: #### A 1C #### [facility] [address] [place] [address] Dr. Wai Vallejo LIPID PROFILEon 02-19-2022 CHOL-HDL RATIO NORM SEE BELOW Normal [facility] Comment on above: Result Comment: 3.3 - 4.4 LOW RISK 4.4 - 7.1 AVERAGE RISK 7.1 - 11.0 MODERATE RISK >11.0 HIGH RISK Performed By: #### C MP, LIPID #### [facility] [address] [place] [address] Dr. Wai Vallejo Cholesterol [Mass/Vol] 153 mg/dL Normal <=200 Th [facility] Comment on above: Performed By: #### C MP, LIPID #### [facility] [address] [address] [address] Wai Vallejo Cholesterol in HDL [Mass/Vol] 41 mg/dL Normal 40-60 [facility] Comment on above: Performed By: #### C MP, LIPID #### [facility] [address] [address] [address] Wai Vallejo Cholesterol in LDL [Mass/Vol] 75.4 mg/dL Normal [facility] Comment on above: Performed By: #### C MP, LIPID #### [facility] [address] [place] [address] Dr. Wai Vallejo Cholesterol.total/Choles terol in HDL [Mass ratio] 3.7 {ratio} Normal [facility] Comment on above: Performed By: #### C MP, LIPID #### [facility] [address] [place] [address] Dr. Wai Vallejo HDL NORMAL > or = 60 mg/dl - LO W CARDIOVASCULAR RISK <40 mg/dl - HIGH CARDIOVASCULAR RISK Normal [facility] Comment on above: Performed By: #### C MP, LIPID #### [facility] [address] [place] [address] Dr. Wai Vallejo LDL CALC NORMAL SEE BELOW Normal [facility] Comment on above: Result Comment: <100 mg/dl OPTIMAL 100 - 129 mg/dl NEAR OR ABOVE OPTIMAL 130 - 159 mg/dl BORDERLINE HIGH 160 - 189 mg/dl HIGH >190 mg/dl VERY HIGH Performed By: #### C MP, LIPID #### [facility] [address] [place] [address] Dr. Wai Vallejo Triglyceride [Mass/Vol] 183 mg/dL Critically high <=150 [facility] Comment on above: Performed By: #### C MP, LIPID #### [facility] [address] [place] [address] Dr. Wai Vallejo VLDL CALC 36.6 mg/dL Normal [facility] Comment on above: Performed By: #### C MP, LIPID #### [facility] [address] [place] [address] Dr. Wai Vallejo MICROALBUMIN, RAND URon -2 mALB <1.3 Normal <=30.0 [facility] Comment on above: Performed By: #### M ALBR #### [facility] [address] [place] [address] Dr. Wai Vallejo PROF 14(COMP METB)on 022 Albumin [Mass/Vol] 3.7 g/dL Normal 3.4-5.0 [facility] Comment on above: Performed By: #### C MP, LIPID #### [facility] [address] [place] [address] Dr. Wai Vallejo Albumin/Globulin [Mass ratio] 1.0 {ratio} Normal [facility] Comment on above: Performed By: #### C MP, LIPID #### [facility] [address] [place] [address] Dr. Wai Vallejo ALP [Catalytic activity/Vol] 53 U/L Normal 46-116 [facility] Comment on above: Performed By: #### C MP, LIPID #### [facility] [address] [place] [address] Dr. Wai Vallejo ALT [Catalytic activity/Vol] 32 U/L Normal 16-63 [facility] Comment on above: Performed By: #### C MP, LIPID #### [facility] [address] [place] [address] Dr. Wai Vallejo Anion gap [Moles/Vol] 10.0 mmol/L Normal [facility] Comment on above: Performed By: #### C MP, LIPID #### [facility] [address] [place] [address] Dr. Wai Vallejo AST [Catalytic activity/Vol] 17 U/L Normal 15-37 [facility] Comment on above: Performed By: #### C MP, LIPID #### [facility] [address] [place] [address] Dr. Wai Vallejo Bilirubin [Mass/Vol] 1.5 mg/dL Critically high 0.2-1.0 [facility] Comment on above: Performed By: #### C MP, LIPID #### [facility] [address] [address] [address] Wai Vallejo Calcium [Mass/Vol] 9.0 mg/dL Normal 8.5-10.1 [facility] Comment on above: Performed By: #### C MP, LIPID #### [facility] [address] [address] [address] Wai Vallejo Chloride [Moles/Vol] 101 mmol/L Normal 98-107 [facility] Comment on above: Performed By: #### C MP, LIPID #### [facility] [address] [address] [address] Wai Vallejo CO2 [Moles/Vol] 30.0 mmol/L Normal 21.0-32.0 [facility] Comment on above: Performed By: #### C MP, LIPID #### [facility] [address] [place] [address] Dr. Wai Vallejo Creatinine [Mass/Vol] 0.81 mg/dL Normal 0.70-1.30 [facility] Comment on above: Performed By: #### C MP, LIPID #### [facility] [address] [place] [address] Dr. Wai Vallejo EGFR-AF BRITISH >60 Normal >=60 [facility] Comment on above: Performed By: #### C MP, LIPID #### [facility] [address] [place] [address] Dr. Wai Vallejo EGFR-NON AF BRITISH >60 Normal >=60 [facility] Comment on above: Performed By: #### C MP, LIPID #### [facility] [address] [place] [address] Dr. Wai Vallejo Globulin (S) [Mass/Vol] 3.6 g/dL Normal [facility] Comment on above: Performed By: #### C MP, LIPID #### [facility] [address] [place] [address] Dr. Wai aVllejo Glucose [Mass/Vol] 192 mg/dL Critically high 74-106 [facility] [facility] Comment on above: Performed By: #### C MP, LIPID #### [facility] [address] [address] [address] Wai Vallejo Potassium [Moles/Vol] 4.0 mmol/L Normal 3.5-5.1 [facility] Comment on above: Performed By: #### C MP, LIPID #### [facility] [address] [address] [address] Wai Vallejo Protein [Mass/Vol] 7.3 g/dL Normal 6.4-8.2 [facility] Comment on above: Performed By: #### C MP, LIPID #### [facility] [address] [address] [address] Wai Vallejo Sodium [Moles/Vol] 137 mmol/L Normal 136-145 [facility] Comment on above: Performed By: #### C MP, LIPID #### [facility] [address] [address] [address] Wai Vallejo Urea nitrogen [Mass/Vol] 13.0 mg/dL Normal 7.0-18.0 [facility] Comment on above: Performed By: #### C MP, LIPID #### [facility] [address] [address] [address] Wai Vallejo Urea nitrogen/Creatinine [Mass ratio] 16.0 mg/mg Normal [facility] Comment on above: Performed By: #### C MP, LIPID #### [facility] [address] [place] [address] Dr. 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 - Other [3602] Prescriptions as of 09/23/2020 [...] Encounter Status:Closed by KISHA KERR on 09/23/20 [facility] CNOVon 08-03-2020 CNOV Office Visit (UROLMN ) ----- CHAVA JONES JR ([id number]) 1970 M Date Time Provider Department 08/03/20 10:00 AM HERMILA LANDRUM During your visit today, we recorded the following information about you: Pulse Blood pressure Weight 98/minute 146/92 86.2 kg Hermila Landrum MD 08/03/2020 10:35 AM Signed [facility] NEW PATIENT HISTORY AND PHYSICAL EXAM PATIENT INFO: Chava Jones JR 50 year old REFERRING M.D.: Adam Ayoub [address] [place] [address] This consult was requested by Dr. Ayoub for an opinion regarding Peyronie's disease, and my final recommendations will be communicated to the requesting health care provider by way of the shared medical record for internal providers or letter via the [employer] for external providers. ======= HISTORY ======= CHIEF COMPLAINT: peyronie's HPI: Per OV with Dr. 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 Hernandez [...] like a referral to see specialist in [facility] to discuss options. All questions/concerns were [...] history for this pt. from Dr. Ayoub ======= UA 1+ glucose due to DM II ====== MEDICATIONS: Current Outpatient Medications Medication Sig - [...] his pros (more content not included)... Normal [facility] Urinalysison 08-03-2020 Bilirubin, Urine Negative Normal Negative [facility] Comment on above: Performed By: #### U A #### [address] [phone] Clarity (U) Clear Normal Clear [facility] Comment on above: Performed By: #### U A #### [address] [phone] Color (U) Light Yellow Critically abnormal Yellow [facility] Comment on above: Performed By: #### U A #### [address] [phone] Comments SEE COMMENT Normal [facility] Comment on above: Result Comment: Micr oscopic not warranted Performed By: #### U A #### [address] [phone] Glucose Ql (U) 1+ mg/dL Critically abnormal Negative [facility] Comment on above: Performed By: #### U A #### [address] [phone] Hemoglobin/Blood,Ur Negative Normal Negative [facility] Comment on above: Performed By: #### U A #### [address] [phone] Ketones Ql (U) Negative Normal Negative [facility] Comment on above: Performed By: #### U A #### [address] [phone] Leukest Negative Normal Negative [facility] Comment on above: Performed By: #### U A #### [phone] [address] Nitrite Ql (U) Negative Normal Negative [facility] Comment on above: Performed By: #### U A #### [address] [address] pH (U) 5.5 [pH] Normal 5.0-8.0 [facility] Comment on above: Performed By: #### U A #### [address] [address] Protein, Urine Negative Normal Negative [facility] Comment on above: Performed By: #### U A #### [address] [address] Specific [place], Ur 1.010 Normal 1.005-1 .03 0 [facility] Comment on above: Performed By: #### U A #### [address] [address] Urine Amilcar Comment SEE COMMENT Normal [facility] Comment on above: Result Comment: N/A Performed By: #### U A #### [address] [address] Urobilinogen (U) [Mass/Vol] Negative Normal Negative [facility] Comment on above: Performed By: #### U A #### [address] [address] Vital Signs Date Time Vital Sign Value Performing Clinician Facility 09-13-2023 13:41-0400 Body height 177.8 cm DO [employer] Work Phone: [facility] 09-13-2023 13:41-0400 Body mass index (BMI) [Ratio] 27.3 kg/m2 DO [employer] Work Phone: [facility] 09-13-2023 13:41-0400 Body weight 86.23 kg DO Max Ball Work Phone: [facility] 09-13-2023 13:41-0400 Diastolic blood pressure 93 mm[Hg] DO Max Ball Work Phone: [facility] 09-13-2023 13:41-0400 Heart rate 105 /min DO Max Ball Work Phone: [facility] 09-13-2023 13:41-0400 Respiratory rate 12 /min DO Max Ball Work Phone: [facility] 09-13-2023 13:41-0400 Systolic blood pressure 139 mm[Hg] DO Max Ball Work Phone: [facility] 07-07-2023 11:07-0400 Body height 177.[address] [facility] 07-07-2023 11:07-0400 Body mass index (BMI) [Ratio] 27.1 kg/m2 [facility] 07-07-2023 11:07-0400 Body weight 85.[address] [facility] 07-07-2023 11:07-0400 Diastolic blood pressure 84 mm[Hg] [facility] 07-07-2023 11:07-0400 Heart rate 96 /min [facility] 07-07-2023 11:07-0400 Respiratory rate 12 /min [facility] 07-07-2023 11:07-0400 Systolic blood pressure 144 mm[Hg] [facility] 04-07-2023 12:06-0500 Heart rate 71 /min Zen Tavera [facility] 04-07-2023 12:06-0500 SaO2% (BldA) [Mass fraction] 98 % Zen Tavera [facility] 04-07-2023 12:06-0500 Diastolic blood pressure 64 mm[Hg] Zen Tavera [facility] 04-07-2023 12:06-0500 Mean blood pressure 78 mm[Hg] Zen Brown [facility] 04-07-2023 12:06-0500 Systolic blood pressure 105 mm[Hg] Zen Brown [facility] 04-07-2023 12:06-0500 Respiratory rate 16 /min Zen Tavera [facility] 04-07-2023 11:16-0500 Heart rate 70 /min Zen Tavera [facility] 04-07-2023 11:16-0500 SaO2% (BldA) [Mass fraction] 95 % Zen Tavera [facility] 04-07-2023 11:14-0500 Respiratory rate 16 /min Zen Tavera [facility] 04-07-2023 11:14-0500 Body temperature 97.34 [degF] Zen Tavera [facility] 04-07-2023 11:13-0500 Diastolic blood pressure 79 mm[Hg] Zen Brown [facility] 04-07-2023 11:13-0500 Mean blood pressure 95 mm[Hg] Zen Brown [facility] 04-07-2023 11:13-0500 Systolic blood pressure 127 mm[Hg] Zen Brown [facility] 04-07-2023 11:00-0500 Diastolic blood pressure 80 mm[Hg] Zen Brown [facility] 04-07-2023 11:00-0500 Mean blood pressure 92 mm[Hg] Zen Brown [facility] 04-07-2023 11:00-0500 Respiratory rate 14 /min Zen Tavera [facility] 04-07-2023 11:00-0500 SaO2% (BldA) [Mass fraction] 92 % Zen Tavera [facility] 04-07-2023 11:00-0500 Systolic blood pressure 117 mm[Hg] Zen Tavera [facility] 04-07-2023 10:50-0500 Mean blood pressure 98 mm[Hg] Zen Tavera [facility] 04-07-2023 10:50-0500 Respiratory rate 12 /min Zen Tavera [facility] 04-07-2023 10:45-0500 Mean blood pressure 90 mm[Hg] Zen Tavera [facility] 04-07-2023 10:45-0500 Respiratory rate 12 /min Zen Tavera [facility] 04-07-2023 10:35-0500 Body temperature 97.16 [degF] Zen Tavera [facility] 04-07-2023 07:37-0500 Mean blood pressure 91 mm[Hg] Zen Tavera [facility] 04-07-2023 07:37-0500 Blood Pressure Location Zen Tavera [facility] 04-07-2023 07:36-0500 Respiratory rate 16 /min Zen Tavera [facility] 04-07-2023 07:36-0500 Body temperature 97.52 [degF] Zen Tavera [facility] 04-07-2023 07:36-0500 Heart rate 66 /min Zen Tavera [facility] 04-07-2023 07:35-0500 Blood Pressure Location Zen Tavera [facility] 03-23-2023 08:29-0500 Diastolic blood pressure 87 mm[Hg] Zen Tavera [facility] 03-23-2023 08:29-0500 Heart rate 64 /min Zen Tavera [facility] 03-23-2023 08:29-0500 Mean blood pressure 107 mm[Hg] Zen Tavera [facility] 03-23-2023 08:29-0500 Systolic blood pressure 147 mm[Hg] Zen Tavera [facility] 03-23-2023 08:29-0500 Heart rate 74 /min Zen Tavera [facility] 03-23-2023 08:29-0500 SaO2% (BldA) [Mass fraction] 99 % Zen Tavera [facility] 03-23-2023 08:28-0500 Respiratory rate 18 /min Zen Tavera [facility] 03-23-2023 08:28-0500 Body temperature 97.88 [degF] Zen Tavera [facility] 03-23-2023 08:28-0500 Diastolic blood pressure 88 mm[Hg] Zen Tavera [facility] 03-23-2023 08:28-0500 Mean blood pressure 109 mm[Hg] Zen Tavera [facility] 03-23-2023 08:28-0500 Systolic blood pressure 151 mm[Hg] Zen Tavera [facility] 03-03-2023 08:45-0500 Body height 177.8 cm Max [employer] Other [facility] Other 03-03-2023 08:45-0500 Body mass index (BMI) [Ratio] 26.43 kg/m2 Max Ball Other [facility] Other 03-03-2023 08:45-0500 Body weight 83.55 kg Max Ball Other [facility] Other 03-03-2023 08:45-0500 Diastolic blood pressure 81 mm[Hg] Max Ball Other [facility] Other 03-03-2023 08:45-0500 Respiratory rate 12 /min Max Ball Other [facility] Other 03-03-2023 08:45-0500 Systolic blood pressure 127 mm[Hg] Max Ball Other EPS Other 10-28-2022 14:15-0400 Body height 177.8 cm Max Ball Other [facility] Other 10-28-2022 14:15-0400 Body mass index (BMI) [Ratio] 26.31 kg/m2 [employer] Other [facility] Other 10-28-2022 14:15-0400 Body weight 83.19 kg Max Ball Other [facility] Other 10-28-2022 14:15-0400 Diastolic blood pressure 79 mm[Hg] Max Ball Other [facility] Other 10-28-2022 14:15-0400 Respiratory rate 12 /min Max Ball Other EPS Other 10-28-2022 14:15-0400 Systolic blood pressure 140 mm[Hg] Max Ball Other EPS Other 07-20-2022 16:00-0400 Body height 177.8 cm Max Ball Other EPS Other 07-20-2022 16:00-0400 Body mass index (BMI) [Ratio] 27 kg/m2 Max Ball Other [facility] Other 07-20-2022 16:00-0400 Body weight 85.37 kg Max Ball Other EPS Other 07-20-2022 16:00-0400 Diastolic blood pressure 86 mm[Hg] Max Ball Other EPS Other 07-20-2022 16:00-0400 Respiratory rate 12 /min Max Ball Other EPS Other 07-20-2022 16:00-0400 Systolic blood pressure 120 mm[Hg] Max Ball Other EPS Other 06-28-2022 14:15-0400 Body height 177.8 cm Max Ball Other [facility] Other 06-28-2022 14:15-0400 Body mass index (BMI) [Ratio] 26.4 kg/m2 Max Ball Other EPS Other 06-28-2022 14:15-0400 Body weight 83.46 kg Max Ball Other EPS Other 06-28-2022 14:15-0400 Diastolic blood pressure 97 mm[Hg] [employer]xa [employer] Other [facility] Other 06-28-2022 14:15-0400 Respiratory rate 12 /min Max Ball Other EPS Other 06-28-2022 14:15-0400 Systolic blood pressure 119 mm[Hg] Max Ball Other EPS Other 06-21-2022 11:15-0400 Body height 177.8 cm Max Ball Other EPS Other 06-21-2022 11:15-0400 Body mass index (BMI) [Ratio] 26.69 kg/m2 Max Ball Other [facility] Other 06-21-2022 11:15-0400 Body weight 84.37 kg Max Ball Other EPS Other 06-21-2022 11:15-0400 Diastolic blood pressure 90 mm[Hg] Max Ball Other [facility] Other 06-21-2022 11:15-0400 Respiratory rate 12 /min Max Ball Other EPS Other 06-21-2022 11:15-0400 Systolic blood pressure 143 mm[Hg] Max Ball Other [facility] Other Encounters Encounter Date Encounter Type Care Provider Facility Start: 12-19-2023 End: 12-19-2023 ambulatory ZEN TAVERA Not Available Start: 12-18-2023 End: 12-18-2023 ambulatory JENNIFER M PETZNICK Not Available Start: 11-07-2023 End: 11-07-2023 ambulatory JENNIFER M PETZNICK Not Available Start: 10-19-2023 End: 10-19-2023 ambulatory ZEN TAVERA Not Available Start: 09-13-2023 End: 09-13-2023 ambulatory DO Max Ball Work Phone: [facility] Work Phone: Start: 09-13-2023 End: 09-13-2023 Patient encounter procedure DO Max Ball Work Phone: [facility] Work Phone: Start: 09-12-2023 End: 09-12-2023 ambulatory ZEN Daniel KAJAL Not Available Start: 08-16-2023 End: 08-16-2023 Patient encounter procedure DO Max Ojeda Work Phone: [facility] [address] Work Phone: Start: 08-16-2023 End: 08-16-2023 ambulatory DO Max Ojeda Work Phone: [facility] Work Phone: Start: 07-20-2023 Telephone encounter Max CARRIZALES [facility] Start: 07-20-2023 End: 07-20-2023 ambulatory ZEN Daniel KAJAL [facility] Other Start: 07-12-2023 End: 07-12-2023 ambulatory ZEN Daniel KAJAL Not Available Start: 07-07-2023 End: 07-07-2023 ambulatory [facility] Work Phone: Start: 07-07-2023 End: 07-07-2023 Patient encounter procedure [facility] Work Phone: Start: 06-27-2023 Non-patient / Non-visit [facility] [employer] Work Phone: Start: 06-27-2023 End: 06-27-2023 ambulatory ZEN Daniel KAJAL Not Available Start: 06-16-2023 End: 06-16-2023 ambulatory ZEN Daniel KAJAL Not Available Start: 2023 End: 2023 ambulatory ZEN Daniel KAJAL Not Available Start: 04-25-2023 End: 04-25-2023 ambulatory Max Ojeda Other [facility] Other Start: 04-25-2023 Telephone encounter Max CARRIZALES [facility] Start: 04-25-2023 Patient encounter procedure [facility]- Start: 04-18-2023 End: 04-18-2023 ambulatory ZEN Daniel KAJAL Not Available Start: 04-07-2023 End: 04-07-2023 Admission to same day surgery center Zen Tavera [facility] Start: 03-23-2023 End: 03-24-2023 ambulatory Zen A Kajal [place] Start: 03-23-2023 End: 03-23-2023 ambulatory ZENBALTA TAVERA Not Available Start: 03-23-2023 End: 03-23-2023 Patient encounter procedure Zen A Kajal [facility] Start: 03-06-2023 End: 03-06-2023 ambulatory Max Ojeda Other [facility] Other Start: 03-06-2023 Telephone encounter Max Ojeda [facility] Start: 03-03-2023 End: 03-03-2023 ambulatory Max Ojeda Other [facility] Other Start: 03-03-2023 Encounter for genera l adult medical examination without abnormal findings Max Ojeda [facility] Start: 03-03-2023 Periodic preventive med est patient 40-64yrs Max Ojeda [facility] Start: 02-20-2023 End: 02-20-2023 ambulatory Max Ojeda Other [facility] Other Start: 02-20-2023 Telephone encounter Max CARRIZALES [facility] Start: 02-14-2023 End: 02-14-2023 ambulatory ZEN A KAJAL Not Available Start: 11-25-2022 End: 11-25-2022 ambulatory Max Ojeda Other [facility] Other Start: 11-25-2022 Nursing evaluation o f patient and report Max Ojeda [facility] Start: 11-01-2022 End: 11-01-2022 ambulatory Max Ojeda Other [facility] Other Start: 11-01-2022 Telephone encounter Max Ojeda [facility] Start: 10-28-2022 End: 10-28-2022 ambulatory Max Ojeda Other [facility] Other Start: 10-28-2022 Office outpatient vi sit 25 minutes Max Ojeda [facility] Start: 07-20-2022 End: 07-20-2022 ambulatory Max Ojeda Other [facility] Other Start: 07-20-2022 Office outpatient vi sit 25 minutes Max Ojeda [facility] Start: 07-11-2022 End: 07-11-2022 ambulatory Max Ojeda Other [facility] Other Start: 07-11-2022 Telephone encounter Max CARRIZALES [facility] Start: 07-06-2022 End: 07-06-2022 ambulatory Max Ojeda Other [facility] Other Start: 07-06-2022 Telephone encounter Max CARRIZALES [facility] Start: 06-28-2022 End: 06-28-2022 ambulatory Max Ojeda Other [facility] Other Start: 06-28-2022 Office outpatient vi sit 15 minutes Max Ojeda [facility] Start: 06-21-2022 End: 06-21-2022 ambulatory Max Ojeda Other [facility] Other Start: 06-21-2022 Office outpatient vi sit 25 minutes Max Ojeda [facility] Start: 06-20-2022 End: 06-20-2022 ambulatory Max Ojeda Other [facility] Other Start: 06-20-2022 Telephone encounter Max CARRIZALES [facility] Start: 06-19-2022 End: 06-20-[address] MAX OJEDA Facility:[facility] Start: 02-23-2022 Encounter for genera l adult medical examination without abnormal findings DR MAX OJEDA [facility] Start: 02-19-2022 End: 02-20-[address] MAX OJEDA Facility:[facility] Start: 02-19-2022 End: 02-20-2022 Encounter for general adult medical examination without abnormal findings DR MAX OJEDA Facility:[facility] Procedures Date Procedure Procedure Detail Performing Clinician Start: 04-07-2023 Arthroscopy of shoulder with biceps tenodesis Zen Tavera Comment on above: with biceps tendonesis, subcromial decom pression, and extensive debridment Start: 02-19-2022 PSA screening WOODRUFF AARONBonitaREJI Comment on above: Performed By: #### PSASC #### [facility] [address] [place] [address] Dr. Wai Vallejo Start: 08-05-2020 Esophagogastroduodenoscopy Zen Tavera Comment on above: Egd/Colonoscopy Start: 11-25-2014 Repair of umbilical hernia Zen Tavera Start: 2014 Appendectomy Zen Tavera Start: 02-24-2014 Colonoscopy Zen Tavera Start: 02-24-2014 Esophagogastroduodenoscopy Zen Tavera Start: 03-27-2007 Cholecystectomy Zen Tavera Arthroscopy of knee Zen white Cervical arthrodesis Zen dejesus Depression screening Kamila Ojeda Other Plan of Treatment Date Care Activity Detail Author Start: 08-16-2023 Hemolytic complement CH50 level [facility] Start: 08-16-2023 [facility] Start: 07-07-2023 Patient referral [facility] Work Phone: Microalbumin [Mass/v olume] in Urine [facility] Patient referral [facility] Work Phone: [facility] Immunizations Immunization Date Immunization Notes Care Provider Fa ciliviji 02-04-2021 COVID-19 Vaccine Pfizer - Documentation Purposes Only Max Ojead Other [facility] 01-14-2021 COVID-19 Vaccine Pfizer - Documentation Purposes Only Max Ojeda Other [facility] NEGATED: Highlighted row has not occurred!07-08-2020 SARS-CoV-2 (COVID-19) mRNA-1273 vaccine Zen Tavera [facility] [place] Payers Date Payer Category Payer Self-pay 1970 Unknown [id number] 2.16.84 [id number] 1970 Unknown [id number] 2.16.84 [id number] 1970 Unknown [id number] 2.16.8 [id number] 1970 Unknown [id number] 2.16.84 0.1.030866.3.579.2.1259 1970 Unknown [id number] 2.16.84 0.1.423708.3.579.2.1259 1970 Unknown [id number] 2.16.84 0.1.854181.3.579.2.1259 1970 Unknown [id number] 2.16.84 0.1.993973.3.579.2.9 1970 Unknown [id number] 2.16.84 0.1.663756.3.579.2.1259 1970 Unknown [id number] 2.16.84 0.1.995087.3.579.2.1259 1970 Unknown [id number] 2.16.84 0.1.478672.3.579.2.1259 1970 Unknown [id number] 2.16.84 0.1.738446.3.579.2.9 1970 Unknown [id number] 2.16.84 0.1.497878.3.579.2.1259 1970 Unknown [id number] 2.16.84 0.1.028189.3.579.2.9 1970 Unknown [id number] 2.16.84 0.1.018716.3.579.2.1259 1970 Unknown [id number] 2.16.84 0.1.243295.3.579.2.1259 1970 Unknown [id number] 2.16.840 .1.245634.3.579.2.1259 1970 Unknown [id number] 2.16.840 .1.401377.3.579.2.1259 1960 Private Health Insurance [id number] Private Health Insurance [id number] [id number] Unknown [id number] 2.16.8 [id number] Social History Date Type Detail Facility Unknown if ever smoked [facility] Other Sex Assigned At [facility] Start: 08-18-2020 Tobacco smoking status Ex-smoker (finding) [facility] Tobacco smoking status Former smokeless tobacco user, quit more than 30 days ago [facility] Start: 1970 Sex Assigned At Male F [facility] Medical Equipment Procedure Code Equipment Code Equipment Origin al Text Equipment Identifier Dates SHOULDER ARTHROS COPY W/ POSSIBLE REPAIR Zen Tavera DO 04/07/23 Unknown Shoulder L FDA Start: 04-07-2023 Blood Sugar Diagnostic (Onetouch Ultra Test) strip Start: 07-20-2023 Lancets (Onetouc h Ultrasoft 2 Lancet) 30 gauge misc Start: 07-20-2023 Blood Sugar Diagnostic (Onetouch Ultra Test) strip Start: 07-20-2023 Lancets (Onetouc h Ultrasoft 2 Lancet) 30 gauge misc Start: 07-20-2023 Functional Status Date Assessment Result Facility 03-23-2023 Functional Status No [facility] Clinical Notes 08-03-2020 to 04-07-2023 Note Date & Type Note Facility 04-07-2023 Hospital Discharg e instructions Patient Education 04/07/2023 11:34:21 Shoulder Cryocuff Patient Instructions - FT (CUSTOM) 04/07/2023 11:34:12 Post Op Patient Instructions - FT (Custom) (CUSTOM) 04/07/2023 09:07:26 Soumya Tavera - After Your Shoulder Arthroscopy (Custom) [place], [place] [facility] AFTER YOUR SHOULDER ARTHROSCOPY [...] your appointment. Zen Tavera, DO [facility] [address] [place], [place] [id number] Reviewed: Follow Up Care 02/14/2023 08:34:24 With:Zen Tavera Address: [address] [place] [address] Business (1) When:04/18/2022 13:45:00 Comments:Appointment has already been scheduled. Call for any problems. [facility] 03-03-2023 Evaluation note Encounter Date Diagnosis [...] (ICD-10 - Z12.5) Yearly ARLEEN and PSA [facility] Other 11-27-2023 Evaluation note* Encounter Date Diagnosis Assessment Notes Treatment Notes Treatment Clinical Notes Jan, Controlled type 2 diabetes mellitus with hyperglycemia, without long-term current use of insulin (ICD-10 - E11.65) [facility] Other 09-01-2023 Evaluation note* Encounter Date Diagnosis Assessment Notes Treatment Notes Treatment Clinical Notes Nov, Acute seasonal allergic rhinitis, unspecified trigger (ICD-10 - J30.2) [facility] Other 08-04-2023 Evaluation note* Encounter Date Diagnosis [...] but maintain ROM Exercises given to patient [facility] Other 04-26-2023 Evaluation note* Encounter Date Diagnosis [...] bedtime. Weight loss. Had to restart PPI [facility] Other 04-17-2023 Evaluation note* Encounter Date Diagnosis Assessment Notes Treatment Notes Treatment Clinical Notes Jun, Superficial thrombophlebitis of right upper extremity (ICD-10 - I80.8) EPS Other 04-12-2023 Evaluation note* Encounter Date Diagnosis Assessment Notes Treatment Notes Treatment Clinical Notes Jun, Superficial thrombophlebitis of right upper extremity (ICD-10 - I80.8) [facility] Other 04-04-2023 Evaluation note* Encounter Date Diagnosis Assessment Notes Treatment Notes Treatment Clinical Notes Jun, Superficial thrombophlebitis of right upper extremity (ICD-10 - I80.8) Warm compresses, elevate and begin antibiotics Jun, SARINA (generalized anxiety disorder) (ICD-10 - F41.1) Healthy diet and keep active. Reassured [facility] Other 03-28-2023 Evaluation note* Encounter Date Diagnosis [...] can stop antibiotic. Repeat Sinus [facility] at [facility] Other 05-10-2021 NotePatient Outreach (UROLMN) CHAVA JONES JR ([id number]) 1970 M Date Time Provider Department 08/03/20 HERMILA LANDRUM During your visit today, we recorded the following information about you: Allergies As of Date: 08/03/2020 (No Known Allergies) Date Reviewed: 08/03/2020 Reviewed by: Hermila Landrum MD - Fully Assessed Visit Diagnosis:Screening for genitourinary condition [Z13.89] Order(s):URINALYSIS, DIPSTICK ONLY [SQUA] Order #: [id number]. #:[id number] Prescriptions as of 08/03/2020 Sig: ALPRAZOLAM 0.25 [...] Peyronie's disease [N48.6] 08/03/2020 Encounter Status:Closed by Netlist KromekUSECathy on 08/06/20[facility] 08-03-2020 NoteHNO ID: [id number] Author: Hermila Landrum MD Service: ? Author Type: Physician Type: Progress Notes Filed: 08/03/2020 10:35 AM Note Text: [facility] UROLOGICAL SKIPPACK NEW PATIENT HISTORY AND PHYSICAL EXAM PATIENT INFO: Chava Jones JR 50 year old REFERRING M.D.: Adam Ayoub [address] [facility] [address] This consult was requested by Dr. Ayoub for an opinion regarding Peyronie's disease, and my final recommendations will be communicated to the requesting health care provider by way of the shared medical record for internal providers or letter via the [employer] for external providers. HISTORY CHIEF COMPLAINT: peyronie's HPI: Per OV with Dr. 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 Hernandez [...] like a referral to see specialist in [facility] to discuss options. All questions/concerns were [...] lb 1.6 oz) GEN (more content not included)...[facility] Future Appointments Appointment Date:04/07/2023 11:30:00 AM Scheduled Provider: Location:[facility] Appointment Type:[facility] noteNo InformationNort 21GRAMS Other Evaluation noteNo assessment information available [facility] Work Phone: Evaluation note* Diagnosis Onset Date Resolution Status TONJA positive acute SARINA (generalized anxiety disorder) acute Type 2 diabetes mellitus with hyperglycemia acute Weakness of left shoulder [place] [facility] Work Phone: History general Narrative - Reported* Type Description [...] History COLONOSCOPY 2020 Hospitalization History See Above EPS Other History general Narrative - Reported* Type [...] Left shoulder arthroscopy Hospitalization History See Above EPS Other Hospital course Narrative No data available for this section [facility] No data available for this section [facility] No data available for this section [facility] Summary Purpose Family History No Family History Records Found Relationship Condition Age at Onset Recorded Date/T david father Malignant neoplasm Unknown Unknown Heart disease Unknown Hypertension Unknown Diabetes mellitus Unknown Not Specified Hypertension Unknown Malignant neoplasm Unknown Advance Directives No Advanced Directives Records Found Advance Directive Response Recorded Date/ Time Advance Directives No June 28 8:55am Chief Complaint and Reason for Visit Chief Complaint lab results Chief Complaint lab results Reason for Visit TONJA positive SARINA (generalized anxiety disorder) Type 2 diabetes mellitus with hyperglycemia Weakness of left shoulder Chief Complaint lab results r76.0 OA MEDS RAYNAUDS disability paperwork Reason for Visit TONJA positive SARINA (generalized anxiety disorder) Type 2 diabetes mellitus with hyperglycemia Weakness of left shoulder Additional Source Comments (unrecognized sect ion and content) No Status Records FoundNo Status Records FoundNo Status Records FoundNo Status Records FoundNo Status Records FoundNo Status Records Found INFORMATION SOURCE (unrecogn ized section and content) DATE CREATED AUTHOR 04/27/2021 [facility] DATE CREATED AUTHOR AUTHOR'S ORGANIZ ATION 06/26/2022 [facility] DATE CREATED AUTHOR AUTHOR'S ORGANIZ ATION 07/13/2022 [facility] DATE CREATED AUTHOR AUTHOR'S ORGANIZ ATION 03/24/2023 [address] [facility] DATE CREATED AUTHOR AUTHOR'S ORGANIZ ATION 08/30/2023 [facility] DATE CREATED AUTHOR AUTHOR'S ORGANIZ ATION 12/19/2023 [facility] d[facility] Specialists EPIC REASON FOR VISIT (unrecogniz ed section and content) Lab resultsWellnessrefillall ergy shotPanic Attacks6 monthUpdateradial vein is warm to the touch, and tinglyTBH - HIGH BP, HEADACHES, HIGH BS Patient Care team informatio n (unrecognized section and content) Team Status: Active Member Role Status Dates Max Ojeda DO Primary Care Provider Active Team Status: Active Member Role Status Dates Provider Conversion Attending Provider Active St art: April 25, 2023 Team Status: Active Member Role Status Dates Max Ojeda DO Primary Care Provide r, Attending Provider Active Start: June 27, 2023 Team Status: Inactive Member Role Status Dates Max Ojeda DO Primary Care Provide r, Attending Provider Active Start: July 07, 2023 End: July 07, 2023 Team Status: Inactive Member Role Status Dates Max Ojeda DO Primary Care Provider Active Start: August 16, 2023 End: August 16, 2023 Rajan Moreland MD Attending Provider Active St art: August 16, 2023 End: August 16, 2023 Team Status: Inactive Member Role Status Dates Max Ojeda DO Primary Care Provide r, Attending Provider Active Start: September 13, 2023 End: September 13, 2023 Goals (unrecognized section and content) Goals may be documented in a n alternate section FOR RECORDS PERTAINING TO PATIENTS WHO ARE [...] BE BASED ON THE PRIMARY CLINICAL RECORDS. [employer] [facility]. provides no warranty or guarantee of the accuracy or completeness of information in this document.
[2024-03-06 07:48] LABS: Basophils Absolute Auto 0.1 10^3/uL (0.0-0.1); Basophils Percent Auto 0.5 % (0.2-2.0); Eosinophils Absolute Auto 0.2 10^3/uL (0.0-0.7); Eosinophils Percent Auto 2.1 % (0.9-7.0); Hematocrit 41.6 % (42.0-54.0); Hemoglobin 13.3 g/dL (14.0-18.0); Immature Granulocytes Abs Auto 0.02 10^3/uL (0.00-0.03); Immature Granulocytes Pct Auto 0.2 % (0.0-0.5); Mean Corpuscular Hemoglobin 26.3 pg (25.9-34.0); Mean Corpuscular Volume 82.2 fL (80.0-94.0); Mean Platelet Volume 8.9 fL (9.5-13.5); Monocytes Absolute Auto 0.8 10^3/uL (0.3-0.8); Monocytes Percent Auto 7.7 % (1.7-12.0); Neutrophils Absolute Auto 8.3 10^3/uL (1.4-6.5); Neutrophils Percent Auto 79.5 % (43.0-75.0); Platelet Count 321 10^3/uL (150-450); Red Blood Count 5.06 10^6/uL (4.70-6.10); Red Cell Distribution Width 13.4 % (11.0-15.0); White Blood Count 10.4 10^3/uL (4.0-11.0)
[2024-03-06 08:37] LABS: Creatinine Urine Random 118.12 mg/dL (20.00-300.00); Microalbumin Urine Random <1.3 mg/dL (<=30.0)
[2024-03-06 08:42] LABS: Alanine Aminotransferase 27 U/L (16-63); Albumin Globulin Ratio 1.1; Albumin Level 3.6 g/dL (3.4-5.0); Alkaline Phosphatase 53 U/L (46-116); Anion Gap 10.2; Aspartate Amino Transferase 19 U/L (15-37); BUN Creatinine Ratio 22.1; Bilirubin Total 2.1 mg/dL (0.2-1.0); Calcium 9.1 mg/dL (8.5-10.1); Carbon Dioxide 29.9 mmol/L (21.0-32.0); Chloride 105 mmol/L (98-107); Chol HDL Ratio 3.2; Cholesterol 136 mg/dL (<=200); Estimated GFR (African America >60 (>=60 mL/min/1.73m^2); Estimated GFR (Non-African Ame >60 (>=60 mL/min/1.73m^2); Globulin 3.4 g/dL; Glucose 151 mg/dL (74-106); HDL Cholesterol 43 mg/dL (40-60); LDL Cholesterol Calculated 77.8 mg/dL; Potassium 4.1 mmol/L (3.5-5.1); Sodium 141 mmol/L (136-145); Triglycerides 76 mg/dL (<=150); VLDL CHOLESTEROL 15.2 mg/dL
[2024-03-06 08:59] LABS: Prostate Specific Antigen Scrn 1.09 ng/mL (<=4.00)
[2024-03-07 08:10] LABS: Testosterone 491 ng/dL (264-916)
== END 2024-03-06 07:09 | disposition home or self-care (01) ==
LOC: LAB 07:10
PROVIDERS: PCP Internal Medicine; Visit Provider Internal Medicine
DX: Z00.00 Encounter for general adult medical examination without abnormal findings (principal); R53.83 Other fatigue
CPT/HCPCS: 36415; 80053; 80061; 82043; 82570; 84403; 85025; G0103

== ENCOUNTER 2024-06-13 15:18 | Outpatient (RCR) | payer OTHER, SELFPAY | END 2024-09-05 07:42 | disposition home or self-care (01) | LOC: PT 15:18 | PROVIDERS: PCP Internal Medicine; Visit Provider Orthopaedic Surgery | DX: Z96.612 Presence of left artificial shoulder joint (principal) | CPT/HCPCS: 97014; 97110; 97112; 97140; 97162; 97760 ==

== ENCOUNTER 2024-07-05 10:09 | Outpatient (OUT) | payer OTHER, SELFPAY ==
[2024-07-05 10:58] LABS: Alanine Aminotransferase 40 U/L (16-63); Albumin Globulin Ratio 1.3; Albumin Level 4.3 g/dL (3.4-5.0); Alkaline Phosphatase 60 U/L (46-116); Anion Gap 10.2; Aspartate Amino Transferase 23 U/L (15-37); BUN Creatinine Ratio 19.6; Bilirubin Total 1.1 mg/dL (0.2-1.0); Calcium 9.2 mg/dL (8.5-10.1); Carbon Dioxide 30.6 mmol/L (21.0-32.0); Chloride 101 mmol/L (98-107); Estimated GFR (African America >60 (>=60 mL/min/1.73m^2); Estimated GFR (Non-African Ame >60 (>=60 mL/min/1.73m^2); Globulin 3.4 g/dL; Glucose 159 mg/dL (74-106); Potassium 3.8 mmol/L (3.5-5.1); Sodium 138 mmol/L (136-145); Total Protein 7.7 g/dL (6.4-8.2)
[2024-07-05 11:25] LABS: Prostate Specific Antigen Scrn 0.91 ng/mL (<=4.00)
== END 2024-07-05 10:10 | disposition home or self-care (01) ==
LOC: LAB 10:11
PROVIDERS: PCP Internal Medicine; Visit Provider Internal Medicine
DX: Z00.00 Encounter for general adult medical examination without abnormal findings (principal); Z12.5 Encounter for screening for malignant neoplasm of prostate
CPT/HCPCS: 36415; 80053; G0103

== ENCOUNTER 2024-07-19 10:47 | Outpatient (RCR) | payer OTHER, SELFPAY | END 2024-10-01 07:45 | disposition home or self-care (01) | LOC: OT 10:47 | PROVIDERS: PCP Internal Medicine; Visit Provider Internal Medicine | DX: M25.532 Pain in left wrist (principal) | CPT/HCPCS: 97014; 97035; 97110; 97140; 97166; 97530 ==

== ENCOUNTER 2025-01-23 09:01 | Outpatient (OUT) | payer OTHER, SELFPAY ==
--- OUTSIDE RECORDS SUMMARY | 2025-01-13 08:05 | XMS_ITS | Encounter Summary ---
Author Organization [facility] Address [address] [place] [address] Care Team Providers Care Laundry Aide Name Role Phone Max Ojeda Primary Care Provider [phone] Encounter Details DateTypeDepartmentCare Team (Latest Contact Info)Dmwuxonqmkx25/20/2025 8:05 AM EDTAncillary Procedure [facility] [address] [place] [phone] Social History Tobacco UseTypesPacks/DayYears UsedDateSmoking Tobacco: NeverSmokeless [...] on one occasion?Never03/18/2024HQ-2 AnswerDate RecordedPatient Health Questionnaire-2 Bnusa76505/19/2023Sex and Gender InformationValueDate RecordedSex Assigned at BdcitMtnk12/17/2023 2:59 PM EDT Legal ZhlSwer2206/08/2022 7:48 PM EDTGender PezqaaamKmqh63/17/2023 2:59 PM EDT Sexual OrientationNot on filedocumented as of this encounter Plan of Treatment Not on file documented as of this encounter Procedures Procedure NamePriorityDate/TimeAssociated DiagnosisCommentsXR WRIST 3+ VIEWS RUBGWjyvwds81/20/2025 8:03 AM EDT Left wrist pain documented [...] MemberRelationshipSpecialtyStart DateEnd Date Max Ojeda, [address] [place] [phone] PCP - GeneralInternal Medicine08/20/24documented as of this encounter
--- OUTSIDE RECORDS SUMMARY | 2025-01-13 09:15 | XMS_ITS | Encounter Summary ---
Author Organization [facility] Address [address] [place] [address] Care Team Providers Care Soldering Inspector Name Role Phone Rusty Max Pugh DO Primary Care Provider Reason for Visit * ReasonCommentsPain Encounter Details DateTypeDepartmentCare Team (Latest Contact Info)Hnqsxvxebzy39/20/2025 9:15 AM EDTOffice Visit [facility] [address] [place] [phone] Zen Tavera DO [address] [facility] [place] [address] Left wrist pain (Primary Dx) [...] on one occasion?Never03/18/2024HQ-2 AnswerDate RecordedPatient Health Questionnaire-2 Chzfd01105/19/2023Sex and Gender InformationValueDate RecordedSex Assigned at GdyfcFiol99/17/2023 2:59 PM EDT Legal VmwMsqo3106/08/2022 7:48 PM EDTGender OeutsrqjNbfb57/17/2023 2:59 PM EDT Sexual OrientationNot on filedocumented [...] erythema. Full flexion, extension, pronation, supination. Good neon tube pumper strength. Tender over the first dorsal compartment [...] note was created using voice recognition through [employer] artificial intelligence. [1] No Known Allergies [2] [...] Procedures Procedure NamePriorityDate/TimeAssociated DiagnosisCommentsXR WRIST 3+ VIEWS RHMFHxzgshb75/20/2025 8:03 AM EDT Left wrist pain documented [...] MemberRelationshipSpecialtyStart DateEnd Date Max Ojeda, [address] [place] [phone] PCP - GeneralInternal Medicine08/20/24documented as of this encounter
--- OUTSIDE RECORDS SUMMARY | 2025-01-23 09:04 | XMS_ITS | Clinical Summary ---
Author Organization [facility] Healthcare Address [address] [place] [address] Care Team Providers Care Host Coordinator Name Role Phone Max Ojeda Primary Care Provider [phone] Allergies No known active allergies Medications MedicationSigDispense QuantityRefillsLast FilledStart DateEnd DateStatus ALPRAZolam (Xanax) 0.25 MG tablet Take 0.25 mg by mouth every 8 (eight) hours if needed for gwxlviv6306/21/2022 Active atorvastatin (Lipitor) 80 MG tablet Take 80 mg by mouth at jhasnxq1410/14/2022ctive omeprazole (PriLOSEC) [address] capsule 10/14/2022ctive Janumet 50-1000 MG tablet Take 1 tablet by mouth in the morning and 1 tablet in the evening. Take with meals.07/07/2022ctive ibuprofen 600 MG tablet Take 600 mg by mouth Daily as neededActive citalopram (CeleXA) 40 MG tablet Take 40 mg by mouth Daily09/29/2023ctive etodolac (Lodine) 500 MG tablet Take 500 mg by mouth in the morning and 500 mg before bedtime.03/05/2024ctive acetaminophen (Tylenol) 500 MG tablet Take 1,000 mg by mouth in the morning and 1,000 mg before bedtime.Active triamcinolone (Kenalog) 0.1 % ointment 5Active CeleBREX 200 MG capsule Take 200 mg by mouth05/22/2024tive [facility] Stool Softener 100 MG capsule 05/22/2024tive buPROPion SR (Wellbutrin SR) 150 MG 12 hr tablet TAKE 1 TABLET BY MOUTH ONCE EVERY UQMAYBW95/07/2025Active glimepiride (Amaryl) 1 MG tablet TAKE 1 TABLET BY MOUTH EVERY MORNING WITH YTTNCVMWK32/07/2025Active FREESTYLE LITE test strip USE RRLDCKCJ76/24/2025Active empagliflozin (Jardiance) 10 MG Indications:Type 2 diabetes mellitus without complication, without long-term current use of insulin (HCC)TAKE 1 TABLET (10 MG) BY MOUTH DAILY. 30 tablet 5Active Additional Information Patient taking differently:10 mg Oral Daily,(No times of day reported), Reported on 01/13/2025 fluorouracil (Efudex) 5 % cream Twice daily5Active Active Problems ProblemNoted DateDiagnosed DateTubular adenoma of colon12/18/2023Hyperlipidemia type II12/18/2023GERD with adqobostmor66/23/2024GAD (generalized anxiety disorder)12/18/2023Type 2 diabetes mellitus without complication, without long- term current use of jckstdk4311/07/2023 Assessment & Plan (06/16/2024 4:59 PM EDT): During the appointment today all pertinent labs, imaging, health maintenance, and glucose readings were reviewed. Encouraged to check blood glucose throughout the day with some fasting and some PP readings. They are to bring their glucose meter/cgm in to all appointments. All of the patients questions, treatment options, and current care plan and goals were discussed. Acopy of this along with pertinent instructions were given to the patient at the end of the appointment. The patient voices understanding of all of this and is to call in between appointments if they have any problems or questions. Alex Pugh Christina is doing very well and encouraged on this. , Discussed dietary changes at length. Encouraged to limit simple carbs and focus more on healthy protein/fat with all meals and snacks. They should also avoid any sugary drinks. , Instructions given today include: Dietary education. Will try stopping glimepiride and using jardiance instead due to hypoglycemia. SGLT2 inhibitors: Discussed risk of dehydration and yeast infection. instructed on the importance of drinking enough water. Assessment & Plan (03/18/2024 12:42 PM EST): During the appointment today all pertinent labs, imaging, health maintenance, and glucose readings were reviewed. Encouraged to check blood glucose throughout the day with some fasting and some PP readings. They are to bring their glucose meter/cgm in to all appointments. All of the patients questions, treatment options, and current care plan and goals were discussed. Acopy of this along with pertinent instructions were given to the patient at the end of the appointment. The patient voices understanding of all of this and is to call in between appointments if they have any problems or questions. Alex Vasquez is making improvements and encouraged on this. , Will stay on current medications. , Instructions given today include: Dietary education. Recommend getting more protein at breakfast. Assessment & Plan (12/18/2023 12:22 PM EDT): During the appointment today all pertinent labs, imaging, health maintenance, and glucose readings were reviewed. Encouraged to check blood glucose throughout the day with some fasting and some PP readings. They are to bring their glucose meter/cgm in to all appointments. All of the patients questions, treatment options, and current care plan and goals were discussed. Acopy of this along with pertinent instructions were given to the patient at the end of the appointment. The patient voices understanding of all of this and is to call in between appointments if they have any problems or questions. Alex Vasquez is making improvements and encouraged on this. , Will stay on current medications. , Discussed dietary changes at length. Encouraged to limit simple carbs and focus more on healthy protein/fat with all meals and snacks. They should also avoid any sugary drinks. , Instructions given today include: Dietary education. I am ok with him having his shoulder surgery based on where his bgare currently running. Assessment & Plan (11/07/2023 10:31 AM EDT): During the appointment today all pertinent labs, imaging, health maintenance, and glucose readings were reviewed. Encouraged to check blood glucose throughout the day with some fasting and some PP readings. They are to bring their glucose meter/cgm in to all appointments. All of the patients questions, treatment options, and current care plan and goals were discussed. Acopy of this along with pertinent instructions were given to the patient at the end of the appointment. The patient voices understanding of all of this and is to call in between appointments if they have any problems or questions. Alex Vasquez is struggling to gain control of their diabetes. I am very concerned for diabetes related complications. , Discussed dietary changes at length. Encouraged to limit simple carbs and focus more on healthy protein/fat with all meals and snacks. They should also avoid any sugary drinks., Discussed importance of checking blood glucose regularly and bringing them in to their appointment in order for me to better adjust their medications. , Instructions given today include: Hypoglycemia management and Dietary education. Will decrease glimepiride. He has a lot of work to do on his diet but I feel that if he is able to make significant changes with this he will be able to gain control of his diabetes and decrease medications. Will work on getting bg better controlled for his shoulder surgery as well. Peyronie's sjbombq5508/03/2020D (erectile dysfunction) of organic origin 08/03/2020 Encounters DateTypeDepartmentCare FnmrFxtzbqqpnxm59/20/2025 9:15 AM EDTOffice Visit [facility] [address] [facility] [place] [address] Zen Tavera DO Left wrist pain (Primary Dx)01/13/2025 8:05 AM EDTAncillary Procedure [facility] [address] [place] [address] 01/13/20251614Khnvsi73/13/6259Ttvdlx24/11/2025 10:30 AM EDTOffice Visit [facility] [address] [place] [id number] Zen Tavera DO Status post total shoulder replacement, left (Primary Dx)11/04/2024amboo flowsheet [facility] [address] [place] [address] Zne Tavera DO 11/04/2024Travelfrom Last 3 Months Immunizations ImmunizationAdministration DatesNext DuePfizer Purple Cap SARS-CoV-2 Vaccination 02/04/2021,01/14/2021 Family History Medical HistoryRelationNameCommentsCancerFatherRobert EskinsDiabetesFatherRobert EskinsHeart diseaseFatherRobert EskinsHypertensionFatherRobert EskinsStroke FatherRobert EskinsNo Known ProblemsMaternal GrandfatherNo Known Problems Maternal GrandmotherAnxiety disorderMotherMary EskinsCancerMotherMary Eskins DepressionMotherMary EskinsDiabetesMotherMary EskinsHeart diseaseMotherMary EskinsHypertensionMotherMary EskinsMental illnessMotherMary EskinsMigraines MotherMary EskinsRestless legs syndromeMotherMary EskinsStrokeMotherMary Eskins No Known ProblemsPaternal GrandfatherNo Known ProblemsPaternal Grandmother RelationNameStatusCommentsFatherRobert EskinsDeceasedMaternal Grandfather Maternal GrandmotherMotherMary EskinsDeceasedPaternal GrandfatherPaternal Grandmother Social History Tobacco UseTypesPacks/DayYears UsedDateSmoking Tobacco: NeverSmokeless [...] on one occasion?Never03/18/2024HQ-2 AnswerDate RecordedPatient Health Questionnaire-2 Qdapf22405/19/2023Sex and Gender InformationValueDate RecordedSex Assigned at VzpcbAapx47/17/2023 2:59 PM EDT Legal QzoOsby0606/08/2022 7:48 PM EDTGender TcfrkddqPakt53/17/2023 2:59 PM EDT Sexual OrientationNot on file Last Filed Vital Signs Vital SignReadingTime TakenCommentsBlood Raiqnlyk655/8403 9:41 AM EDT Hoxxr794206/14/2024 9:41 AM IKHUsryexfvyqy89.7 ??C (98.1 ??F)06/14/2024 9:41 AM EDTRespiratory Rate--Oxygen Dwwwcbcxgk60%06/14/2024 9:41 AM EDTInhaled Oxygen Concentration--Zasqio88.4 kg (186 lb)11/04/2024 10:21 AM ZMXFpfcbv419.3 cm (5' 9 )11/04/2024 10:21 AM EDTBody Mass Index27.47011/04/2024 10:21 AM EDT Plan of Treatment Not on file Procedures Procedure NamePriorityDate/TimeAssociated DiagnosisCommentsXR WRIST 3+ VIEWS NVNUJintwsl09/20/2025 8:03 AM EDT Left wrist pain from Last 3 Months Results * XR wrist 3+ views left [...] StatusZen Tavera DOI XR PROCEDURES Final Result from Last 3 Months Insurance Care Teams Team MemberRelationshipSpecialtyStart DateEnd Date Max Ojeda, [address] [facility] [place] [address] PCP - GeneralInternal Medicine08/20/24
--- OUTSIDE RECORDS SUMMARY | 2025-01-23 09:04 | XMS_ITS | Encounter Summary ---
Author Organization [facility] Address [address] [facility] [place] [address] Care Team Providers Care Hand Flesher Name Role Phone Max Ojeda DO Primary Care Provider [phone] Encounter Details DateTypeDepartmentCare Team (Latest Contact Info)Gvmoxcbprbl53/20/2025Travel Social History Tobacco UseTypesPacks/DayYears UsedDateSmoking Tobacco: NeverSmokeless [...] on one occasion?Never03/18/2024HQ-2 AnswerDate RecordedPatient Health Questionnaire-2 Vkvza75905/19/2023Sex and Gender InformationValueDate RecordedSex Assigned at ZzsbbAhcj30/17/2023 2:59 PM EDT Legal FjuUajt4806/08/2022 7:48 PM EDTGender XwwnxdafFifq47/17/2023 2:59 PM EDT Sexual OrientationNot on filedocumented as of this encounter Plan of Treatment Not on file documented as of this encounter Visit Diagnoses Not on filedocumented in this encounter Care Teams Team MemberRelationshipSpecialtyStart DateEnd Date Max Ojeda DO [address] [facility] [place] [address] PCP - GeneralInternal Medicine08/20/24documented as of this encounter
--- OUTSIDE RECORDS SUMMARY | 2025-01-23 09:17 | XMS_ITS | CCD ---
Author Organization [facility] Care Team Providers Care Medicare Compliance Auditor Name Role Phone Max Tucker Unavailable GARRETT, DR SANTANA Primary Care Unavailable ZIDARON, DR STEPHY Morgan Consulting Unavailable SHAIKH Aishwarya WONG Attending Unavailable SHAIKH Aishwarya WONG Admitting Unavailable HAY ., DR BRYANT Consulting Unavailable GLATZALFONSO Consulting Unavailable SHAIKH Aishwarya WONG Consulting Unavailable KLYMCHAVA Consulting Unavailable JBJORDAN YAAMAURY Consulting Unavailable GARRETT, DR SANTANA Admitting Unavailable GARRETT, DR SANTANA Attending Unavailable GARRETT, DR SANTANA Primary Care Unavailable GARRETT, DR SANTANA Consulting Unavailable MAX TUCKER Primary Care Physician DO Max Tucker Primary Care Provider MD Rajan Moreland Attending Provider [phone] Rajan Moreland Attending Unavailable Rajan Moreland Admitting Unavailable Max Tucker Primary Care Unavailable Max Tucker MD Primary Care Provider Brown Zen A Admitting Unavailable Brown, Zen A Attending Unavailable Brown, Zen A Referring Unavailable Brown, DO Zen A Referring Unavailable Brown, DO Zen A Attending Unavailable Brown, DO Zen A Admitting Unavailable Brown, DO Zen A Referring Unavailable Brown, DO Zen A Attending Unavailable Brown, DO Zen A Admitting Unavailable Paola Lundberg Unavailable Unavailable Joe Denton Consulting Unavailable MARIA R ROMANO Attending Unavailable Joe Denton Consulting Unavailable DO Joe Denton Consulting UnavailJoe Gonzalez Attending Unavailable Reynaldo Rdzson Daniel Attending Unavailable Brown, Zen A Referring Unavailable Brown, Zen A Admitting Unavailable Brown, DO Zen A Admitting Unavailable Kajal, DO Zen A Referring Unavailable Joe Denton Consulting Unavailable Joe Denton Attending Unavailable Joe Denton Consulting Unavailable Paster, DO Joe Dooley Consulting Unavailabl e Max Tucker DO Primary Care Provider Kajal, Zen A Referring Unavailable Brown, DO Zen A Attending Unavailable Brown, DO Zen A Admitting Unavailable Brown, DO Zen A Referring Unavailable Brown, DO Zen A Attending Unavailable Brown, DO Zen A Admitting Unavailable Max Tucker DO Primary Care Provider Max Tucker DO Attending Provider Max Tucker DO Primary Care Provider Reynaldo Rdzson A Unavailable ENTPENNIE LIMOND Attending Unavailable KAJAL, ZEN A Referring Unavailable MAX TUCKER Primary Care Unavailable ENTPENNIE LIMOND Referring Unavailable MAX TUCKER Primary Care Unavailable PENNIE KRAUSD Attending Unavailable MAX TUCKER Primary Care Unavailable Brown, Zen A Admitting Unavailable Brown, Zen A Attending Unavailable Brown, Zen A Referring Unavailable Max Tucker DO Primary Care Provider Max Tucker DO Attending Provider [phone] BROWN, ZEN A Attending Unavailable BROWN, ZEN A Referring Unavailable BROWN, ZEN A Referring Unavailable BROWN, ZEN A Attending Unavailable ROSE DICK Attending Unavailable BROWN, ZEN A Referring Unavailable BROWN, ZEN A Attending Unavailable BROWN, ZEN A Attending Unavailable BROWN, ZEN A Referring Unavailable ROSI LITTLE Attending Unavailable BROWN, ZEN A Referring Unavailable ROSI LITTLE Referring Unavailable BROWN, ZEN A Attending Unavailable BROWN, ZEN A Attending Unavailable BROWN, ZEN A Referring Unavailable BROWN, ZEN A Attending Unavailable ROSE DICK Attending Unavailable Max Tucker DO Primary Care Provider Medications Current Medications MedicationDrug Class(es)DatesSig (Normalized)Sig (Original)acetaminophen 500 mg oral tablet (20 sources)take 2 tablets by mouth in the morningacetaminophen (Tylenol) 500 MG tablet Take 1,000 mg by mouth in the morning and 1,000 mg before bedtime. Active acetaminophen 325 mg / oxyCODONE hydrochloride 5 mg oral tablet (7 sources)Opioid AgonistStart: 05-22-2024 End: 79-77-7668Gxyunfmv 5 mg-325 mg oral tablet See Instructions, 40 tab(s), Refill(s) 0, 1-2 tab(s) Oral q4hr, [facility]/pharmacy #[id number], 176, cm, 04/30/24 14:00:00 EST, Height/Length Dosing, 84.1, kg, 04/30/24 14:00:00 EST, Weight Dosing Start Date: 05/22/24 Status: Ordered Quantity: 40.0 Unit: tab(s) Repeat number: 1Start: 79-46-3195Tuutndnx 5 mg-325 mg oral tablet See Instructions, 40 tab(s), Refill(s) 0, 1-2 tab(s) Oral q4hr, [facility]/pharmacy #[id number], 176.7, cm, 03/23/23 9:11:00 EST, Height/Length Dosing, 83.7, kg, 03/23/23 9:11:00 EST, Weight Dosing Start Date: 04/07/23 Status: OrderedALPRAZolam 0.25 mg oral tablet (20 sources)BenzodiazepineStart: 04-16-2019 End: 03-32-2887ravh 1 tablet by mouth every eight hours as needed for anxiety ALPRAZolam (Xanax) 0.25 MG tablet Take 0.25 mg by mouth every 8 (eight) hours if needed for xwnrnku9706/21/2022 ActiveStart: 04-16-2019 End: 07-82-0124inyk 1 tablet by mouth once daily as needed for anxietyAlprazolam 0.25 mg tablet Active 0.25 MG PO Daily as needed for anxiety December 03, 2024 7:59pm Complies with drug therapyatorvastatin 80 mg oral tablet (20 sources)HMG-CoA Reductase InhibitorStart: 09-11-2023 End: 88-28-9599ozds 1 tablet by mouth once daily in the eveningAtorvastatin 80 mg tablet Active 0 .ROUTE .COMPLEX June 09, 2024 10:47am TAKE 1 TABLET BY MOUTH EVERY EVENING Complies with drug therapyStart: 03-19-2019 End: 19-21-1179ptyi 1 tablet by mouth at bedtimeatorvastatin (Lipitor) 80 MG tablet Take 80 mg by mouth at bedtime 10/14/2022 Activetake 1 tablet by mouth every twenty-four hoursLipitor 10 MG 1 tablet Orally Once a day Activebacitracin zinc 0.4 unt/mg / hydrocortisone acetate 0.01 mg/mg / neomycin sulfate 0.0035 mg/mg / polymyxin b sulfate 10 unt/mg ophthalmic ointment (4 sources)Aminoglycoside Antibacterial, Polymyxin-class Antibacterial, CorticosteroidStart: 90-72-0788fobkcdyq-tcsxexqjuz-jwfbjfnad-bxtgpfbfrwcxhf (Cortisporin) 1 % ophthalmic ointment Apply to affected eye(s) 05/23/2024 Active Start: 04-35-5933qfneliuucg/HC/neomycin/polymyxin B Opth Oint 1 madelyn, OPTH, TID, 3.5 gm, Refill(s) 0, [facility]/pharmacy #[id number], 177.8, cm, 05/22/24 17:57:00 EST, Height/Length Dosing, 85.4, kg, 05/22/24 17:57:00 EST, WeightDosing Start Date: 05/23/24 Status: Ordered Quantity: 3.5 Unit: g Repeat number: 1Start: 05-23-2024 bacitracin/HC/neomycin/polymyxin B Opth Oint 1 madelyn, OPTH, TID, 3.5 gm, Refill(s) 0, [facility]/pharmacy #[id number], 177.8, cm, 05/22/24 17:57:00 EST, Height/Length Dosing, 85.4, kg, 05/22/24 17:57:00 EST, WeightDosing Start Date: 05/23/24 Status: OrderedBlood-Glucose Meter (Onetouch Ultra2 Meter) [facility] [place] sources)Start: 54-71-5406Rwoye-Glucose Meter (Onetouch Ultra2 Meter) [facility] [place] 0 .ROUTE .MEDSUPPLY July 20, 2023 12:00am Use to test home BS qd12 hr buPROPion hydrochloride 150 mg extended release oral tablet (17 sources)AminoketoneStart: 83-03-3841txjc 1 tablet by mouth once daily in the morningbuPROPion SR (Wellbutrin SR) 150 MG 12 hr tablet TAKE 1 TABLET BY MOUTH ONCE EVERY MORNING 08/31/2024 Activecelecoxib 200 mg oral capsule (20 sources)Nonsteroidal Anti-inflammatory DrugStart: 20-54-3834VuyvRXEU 200 MG capsule Take 200 mg by mouth 05/22/2024 Activecitalopram 40 mg oral tablet (20 sources)Serotonin Reuptake InhibitorStart: 79-78-2884hmrc 1 tablet by mouth once dailyCitalopram 40 mg tablet Active 0 .ROUTE .COMPLEX September 17, 2024 6:51am TAKE 1 TABLET BY MOUTH EVERY DAY Complies with drug therapyStart: 08-13-2024 End: 83-37-9039Luzbjvgndf 40 mg tablet Discontinued 20 MG PO Daily 02 14August 13, 2024 11:49am September 17, 2024 6:52amStart: 09-29-2023 End: 23-67-5829iujo 1 tablet by mouth once dailyCitalopram 40 mg tablet Discontinued 0 .ROUTE .COMPLEX March 22, 2024 8:15am August 13, 2024 11:50am TAKE 1 TABLET BY MOUTH EVERY DAYStart: 09-13-2023 End: 31-21-4339arwt 1 tablet by mouth once dailycitalopram (CeleXA) 40 MG tablet Take 40 mg by mouth Daily 09/29/2023 ActiveStart: 66-61-6907ytezzfmcmw (CELEXA) 20 mg tablet 07/31/2019 Activedocusate sodium 100 mg oral capsule (20 sources)Start: 34-41-9918NJY Stool Softener 100 MG capsule 05/22/2024 Active doxycycline hyclate 100 mg oral capsule (8 sources)Tetracycline-class DrugStart: 06-22-4709aagv 1 capsule by mouth twice dailyDoxycycline Hyclate 100 MG 1 capsule Orally twice daily for 7 days Jun, Activeempagliflozin 25 mg oral tablet (20 sources)Sodium-Glucose Cotransporter 2 InhibitorStart: 13-49-4007vrol 1 tablet by mouth once daily in the morningEmpagliflozin 25 mg tablet Active 25 MG PO Every morning 30 October 02, 2024 10:37am Complies withdrug therapyStart: 06-14-2024 End: 21-34-9664jhwy 1 tablet by mouth once dailyempagliflozin (Jardiance) 10 MG Indications: Type 2 diabetes mellitus without complication, withoutlong-term current use of insulin (HCC) TAKE 1 TABLET (10 MG) BY MOUTH DAILY. 30 tablet 3 5Activefluorouracil 50 mg/ml topical cream (3 sources)Nucleoside Metabolic InhibitorStart: 49-25-8745wolqohhexico (Efudex) 5 % cream Twice daily 12/25/2024 ActiveFREESTYLE LITE METER monitoring kit (2 sources)Start: 18-74-6283OKOTJCKEN LITE METER monitoring kit USE TO TEST HOME BLOOD SUGAR ONCE EVERY DAY 04/20/2020 Activegabapentin 300 mg oral capsule (1 source)Anti-epileptic AgentStart: 05-22-2024 End: 53-67-8278bpdc 1 capsule by mouth three times dailygabapentin 300 mg Cap 300 mg = 1 cap(s), Oral, TID, X 14 day(s), # 42 cap(s), Refills(s) 0, Pharmacy: [facility]/pharmacy #[id number], 176, cm, 04/30/24 14:00:00 EST, Height/Length Dosing, 84.1, kg, 04/30/24 14:00:00 EST, Weight Dosing Start Date: 05/22/24 Stop Date: 06/05/24 Status: Orderedglimepiride 2 mg oral tablet (20 sources)SulfonylureaStart: 74-55-9144pbwh 1 tablet by mouth once daily at breakfastGlimepiride 2 mg tablet Active 2 MG PO Every morning October 02, 2024 10:37am administer with breakfast Complies with drug therapyStart: 08-13-2024 End: 12-18-7871zwfy 1 tablet by mouth once daily in the morningglimepiride (Amaryl) 1 MG tablet TAKE 1 TABLET BY MOUTH EVERY MORNING WITH BREAKFAST 08/31/2024 ActiveStart: 09-15-2023 End: 02-88-4551fnhf 1 tablet by mouth once dailyGlimepiride 4 mg tablet Discontinued 4 MG PO Daily 30 September 15, 2023 5:08pm July 18, 2024 10:48am Start: 07-06-2023 End: 27-18-5545psiq 3 mg by mouth once dailyGlimepiride 2 mg tablet Discontinued 3 MG PO Daily July 19, 2023 6:50am September 15, 2023 5:09pmStart: 07-06-2023 End: 08-28-3412waxe 3 mg by mouth once dailyGlimepiride Active 3 MG PO Daily 45 July 19, 2023 6:50amStart: 04-20-2020 End: 60-93-7040nvar 1 tablet by mouth once daily at breakfastGlimepiride 2 mg tablet Active 2 MG PO Every morning October 02, 2024 10:37am administer with breakfast Complies with drug therapyStart: 02-62-5005qdoy 1.5 mg by mouth once dailyglimepiride 1 mg Tab 1.5 mg = 1.5 tab(s), Oral, Daily, Refills(s) 0, High blood sugar Start Date: 07/31/19 Status: Ordered Repeat number: 1take 1.5 tablets by mouth every twenty-four hoursGlimepiride 2 MG 1.5 tablet with breakfast or the first main meal of the day Orally Once a day Activehydrocortisone acetate 25 mg rectal suppository (20 sources)CorticosteroidStart: 31-41-5574Diwwwzbbodpttv Acetate 25 mg suppository Active 25 MG PA Twice daily December 08, 2023 12:00am Complies with drug therapyStart: 07-06-2023 End: 03-96-1643Sdtznbjukbcfln 2.5 % cream Discontinued 1 APPLIC TOPICAL Daily July 06, 2023 12:00am September 13, 2023 2:15pmHydrocortisone 2.5 % 1 application Externally Once a day ActiveHydrocortisone Acetate 25 MG 1 suppository Rectal Once a day ActiveHydrocortisone 2.5 % 1 application Externally Once a day ActiveHydrocortisone Acetate 25 mg suppository (1 source)Start: 02-80-0307Vbegcwkeikkvhc Acetate 25 mg suppository Active 25 MG PA Twice daily December 08, 2023 12:00amibuprofen 600 mg oral tablet (20 sources)Nonsteroidal Anti-inflammatory DrugStart: 19-91-7934smqv 1 tablet by mouth every six hours as needed for painibuprofen 600 mg Tab 600 mg = 1 tab(s), Oral, q6hr, PRN as needed for pain, with food or milk, # 50tab(s), Refills(s) 0, Pharmacy: [facility]/pharmacy #[id number], 176.7, cm, 03/23/23 9:11:00 EST, Height/Length D osing, 83.7, kg, 03/23/23 9:11:00 EST, Weight Dosing Start Date: 04/07/23 Status: Orderedtake 1 tablet by mouth every twenty-four hours as neededibuprofen 600 MG tablet Take 600 mg by mouth Daily as needed Activeketorolac tromethamine 10 mg oral tablet (1 source)Nonsteroidal Anti-inflammatory Drug, Cyclooxygenase InhibitorStart: 05-22-2024 End: 43-30-5904qmuq 1 tablet by mouth every eight hoursketorolac 10 mg Tab 10 mg = 1 tab(s), Oral, q8hr, X 3 day(s), # 9 tab(s), Refills(s) 0, Pharmacy: [facility]/pharmacy #[id number], 176, cm, 04/30/24 14:00:00 EST, Height/Length Dosing, 84.1, kg, 04/30/24 14:00:00EST, Weight Dosing Start Date: 05/22/24 Stop Date: 05/25/24 Status: OrderedmetFORMIN hydrochloride 1000 mg oral tablet (2 sources)BiguanideStart: 72-46-8759czaFTFNWT (GLUCOPHAGE) 1,000 mg tablet 04/18/2020 Activeomeprazole 40 mg delayed release oral capsule (20 sources)Proton Pump InhibitorStart: 11-17-2023 End: 89-72-0210Zgqskmeelv 40 mg capsule,delayed release(DR/EC) Active 0 .ROUTE .COMPLEX August 08, 2024 1:32pm TAKE 1 CAPSULE ON EMPTY STOMACH FOLLOWED IN 30 MINUTES BY BKFST Complies with drug therapyStart: 00-79-2117jxyutnzcol (PriLOSEC) [address] capsule 10/14/2022 ActiveStart: 07-31-2019 End: 21-70-0728cbib 1 capsule by mouth once dailyOmeprazole 40 mg capsule,delayed release(DR/EC) Discontinued 40 MG PO Daily July 06, 2023 12:00am November 17, 2023 10:20amsildenafil 100 mg oral tablet (7 sources)Phosphodiesterase 5 InhibitorStart: 42-41-2116frymizbwyg (VIAGRA) 100 mg tablet Take 100 mg by mouth. 07/31/2019 ActiveSuzetrigine (Journavx) 50 MG tablet (6 sources)Start: 11-04-2024 End: 55-73-0473ifmr 1 tablet by mouth every twelve hoursSuzetrigine (Journavx) 50 MG tablet Indications: Status post total shoulder replacement, left Take 50 mg by mouth every 12 (twelve) hours for 14 days For the first dose, take 2 tablets (100 mg) on anempty stomach at least 1 hour before or 2 hours after food. Starting 12 hours after the initial dose, take 1 tablet (50 mg) every 12 hours with or without food. 30 tablet 11/04/2024 11/18/2024 ActiveStart: 09-26-2024 End: 63-06-6918ejhn 1 tablet by mouth every twelve hoursSuzetrigine (Journavx) 50 MG tablet Indications: Status post total shoulder replacement, left Take 50 mg by mouth every 12 (twelve) hours for 14 days For the first dose, take 2 tablets (100 mg) on anempty stomach at least 1 hour before or 2 hours after food. Starting 12 hours after the initial dose, take 1 tablet (50 mg) every 12 hours with or without food. 30 tablet 09/26/2024 10/10/2024 ActiveStart: 07-04-2024 End: 01-19-4794gzsb 1 tablet by mouth every twelve hoursSuzetrigine (Journavx) 50 MG tablet Indications: Status post total shoulder replacement, left Take 50 mg by mouth every 12 (twelve) hours for 14 days For the first dose, take 2 tablets (100 mg) on anempty stomach at least 1 hour before or 2 hours after food. Starting 12 hours after the initial dose, take 1 tablet (50 mg) every 12 hours with or without food. 30 tablet 07/04/2024 07/18/2024 ActivetraMADol hydrochloride 50 mg oral tablet (6 sources)Opioid AgonistStart: 10-24-2023 End: 85-84-7232hoqa 1 tablet by mouth in the morningtraMADol (Ultram) 50 MG tablet Take 50 mg by mouth in the morning and 50 mg before bedtime. 10/24/2023 03/18/2024 Discontinued (Therapy completed)triamcinolone acetonide 0.001 mg/mg topical ointment (20 sources)CorticosteroidStart: 87-33-9612cbndrnglnqblv (Kenalog) 0.1 % ointment 05/09/2024 ActiveStart: 76-46-4837fpjsyrvdjaedk (Kenalog) 0.1 % ointment APPLY TO AFFECTED AREA ONCE A DAY NEEDED FOR ITCHING 05/09/2024 ActiveStart: 85-95-3309Mvsidrroutmwh Acetonide 0.1 % ointment Active 1 APPLIC TOPICAL Daily as needed for itching 80 30 March 05, 2024 1:00am Complies with drug therapyStart: 09-41-2880Jegreon-40 Nov, 60 mg Completed/Discontinued Medications MedicationDrug Class(es)DatesSig (Normalized)Sig (Original)[id number] 200 actuat albuterol 0.09 mg/actuat metered dose inhaler (20 sources)beta2-Adrenergic AgonistStart: 07-06-2023 End: 97-90-6613wtma 1 puff(s) by inhalation every four hours as neededAlbuterol Sulfate 90 mcg/actuation HFA aerosol inhaler Discontinued 2 PUFF INHALATION Every 4 hoursas needed July 06, 2023 12:00am September 13, 2023 2:14pmStart: 22-50-8201lzzm 2 puff(s) by inhalation every four hours as neededStart: 98-80-6781uppk 2 puff(s) by inhalation every four hours as neededAlbuterol Sulfate HFA 108 (90 Base) MCG/ACT 2 puffs as needed Inhalation every 4 hrs for 30 days 2019 Not-Taking/PRNcephalexin 500 mg oral capsule (3 sources)Cephalosporin AntibacterialStart: 09-26-2024 End: 18-25-1152yyto 4 capsules by mouth once at mealtimecephalexin (Keflex) 500 MG capsule Indications: Status post total shoulder replacement, left Take 4 capsules (2,000 mg) by mouth 1 time for 1 dose Take 30-60 mins before dental appointment with food 4 capsule 3 09/26/2024 09/26/2024 ExpiredStart: 05-22-2024 End: 09-70-0472oehe 1 capsule by mouth every eight hoursKeflex 500 mg Cap 500 mg = 1 cap(s), Oral, q8hr, X 7 day(s), # 21 cap(s), Refills(s) 0, Pharmacy: [facility] #[id number], 176, cm, 04/30/24 14:00:00 EST, Height/Length Dosing, 84.1, kg, 04/30/24 14:00:00EST, Weight Dosing Start Date: 05/22/24 Stop Date: 05/29/24 Status: Ordereddextromethorphan hydrobromide 15 mg / guaiFENesin 400 mg / pseudoephedrine hydrochloride 60 mg oraltablet (14 sources)alpha-Adrenergic Agonist, Uncompetitive B-nqwspp-G-aspartate Receptor Antagonist, Sigma-1 AgonistStart: 39-69-0169Pvdrrwf DM 60-15-400 MG 1/2 to 1 tablet Orally every 6-8 hours as needed for 8 days Apr, Not -Taking/PRNetodolac 500 mg oral tablet (20 sources)Nonsteroidal Anti-inflammatory DrugStart: 12-22-2024 End: 15-60-4864vvhe 1 tablet by mouth twice dailyEtodolac 500 mg tablet Discontinued 0 .ROUTE .COMPLEX December 22, 2024 8:00am December 25, 2024 10:14am TAKE 1 TABLET BY MOUTH TWICE A DAY FOR 21 DAYSStart: 05-10-2024 End: 14-97-8369hjfw 1 tablet by mouth twice dailyEtodolac 500 mg tablet Discontinued 0 .ROUTE .COMPLEX May 10, 2024 2:12pm August 13, 2024 1 1:53am TAKE 1 TABLET BY MOUTH TWICE A DAYStart: 03-05-2024 End: 86-98-4626gacz 1 tablet by mouth in the morningetodolac (Lodine) 500 MG tablet Take 500 mg by mouth in the morning and 500 mg before bedtime. 03/05/2024 ActiveHumalog (1 source)Insulin AnalogStart: 05-23-2024 End: 73-79-0854VwojKXD Sliding Scale 0-10 Unit(s), Injection-Insulin, SubCutaneous, Start date 05/23/24 7:30:00 AM EST Start Date: 05/23/24 Stop Date: 05/23/24 Status: CompletedmetFORMIN hydrochloride 1000 mg / SITagliptin 50 mg oral tablet (20 sources)Biguanide, Dipeptidyl Peptidase 4 InhibitorStart: 08-16-2023 End: 66-38-5884agto 1 tablet by mouth twice daily at mealtimeSitagliptin Phos- Metformin (Marumet) 50-1,000 mg tablet Discontinued 0 .ROUTE .COMPLEX 60 March 05, 2024 2:24pm August 14, 2024 1:14pm TAKE 1 TABLET BY MOUTH TWICE A DAY WITH MEALS FOR 30 DAYSStart: 22-39-8152leuz 1 tablet by mouth in the morning Janumet 50-1000 MG tablet Take 1 tablet by mouth in the morning and 1 tablet in the evening. Take with meals. 07/07/2022 ActiveStart: 07-31-2019 End: 36-80-2084kcek 1 tablet by mouth twice dailySitagliptin Phos-Metformin (Marumet) 50-1,000 mg tablet Discontinued 1 TAB PO Twice daily July 06, 2023 12:00am August 16, 2023 8:35amStart: 42-31-5483imhy 50-1000 tablets by mouth once SITagliptin-metFORMIN (MARUMET) 50-1,000 mg per tablet Take by mouth. 07/31/2019 Activetake 1 tablet by mouth every twelve hoursJanumet 50-500 MG 1 tablet with meals Orally Twice a day ActivemethylPREDNISolone 4 mg oral tablet (14 sources)CorticosteroidStart: 08-11-7191Okewwf 4 MG as directed Orally for 6 days Apr, Not-Taking/PRNoseltamivir 75 mg oral capsule (14 sources)Neuraminidase InhibitorStart: 66-88-8145rzbm 1 capsule by mouth every twelve hoursTamiflu 75 MG 1 capsule Orally Twice a day for 5 day(s) Apr, Not-Taking/PRN Problems Active Problems Problem ClassificationProblemDateDocumented DateEpisodic/ChronicAbdominal pain (15 sources)Acute abdominal pain; Translations: [Left lower quadrant pain] 70-73-9573TiahnxsiFmhxjfn disorders (20 sources)Acute stress disorder; Translations: [Acute stress reaction]Onset: 39-08-9088AngydvrShnchgtrxohr of device; implant or graft (4 sources)Complication associated with musculoskeletal implant; Translations: [Mechanical loosening of unspecified internal prosthetic joint, initial encounter]Onset: 271790-30-0683OaptjotjIycrdxwbdz and other anemia (5 sources)Anemia; Translations: [Anemia, unspecified]08-26-4365SoblvlclJxbrccyv mellitus with complications (20 sources)Hyperglycemia due to type 2 diabetes mellitus; Translations: [Type 2 diabetes mellitus with hyperglycemia]Onset: 45-31-4384SdyjvtwTdrewlkp mellitus without complication (20 sources)Diabetes mellitus; Translations: [Type 2 diabetes mellitus well controlled]Onset: 186339-79-4468AwkhpjrKhjofuvjh of lipid metabolism (20 sources)Mixed hyperlipidemia; Translations: [Mixed hyperlipidemia]Onset: 75-45-0529LtvwlroK Codes: Adverse effects of medical drugs (2 sources)Adverse effect of glucocorticoids and synthetic analogues, initial encounter; Translations: [ADVRS EFF GLUCOCORT SYN ANALOG INIT]Onset: 06-22-2022 EpisodicEsophageal disorders (20 sources)Gastro-esophageal reflux disease with esophagitis; Translations: [Gastroesophageal reflux disease with esophagitis without hemorrhage]Onset: 765393-53-1080KngovqsCgdwhvinj hypertension (15 sources)Essential hypertension; Translations: [Essential (primary) hypertension]ChronicGastrointestinal hemorrhage (5 sources)Rectal rxhulxjcfz05-47-1615RbqtmvtqBkcabpre; including migraine (3 sources)Headache; including migraine; Translations: [HEADACHE UNSPECIFIED] Onset: 80-13-6595Siwjzjiueto (14 sources)External hemorrhoids; Translations: [Residual hemorrhoidal skin tags]EpisodicHypertension with complications and secondary hypertension (1 source)Hypertensive urgency; Translations: [HYPERTENSIVE URGENCY]Onset: 88-11-1694DxlksdnZcdhfnmezntgu and screening for infectious disease (8 sources)Anti-nuclear factor positive; Translations: [Other specified abnormal immunological findings in serum]Onset: 403068-92-7871Ewjycjeb Inflammation; infection of eye (except that caused by tuberculosis or sexually transmitteddisease) (1 source)Blepharitis; Translations: [Unspecified blepharitis unspecified eye, unspecified eyelid]Onset: 52-35-3542OslktqjkJydf disorders (7 sources)Major depressive disorder, single episode, unspecified; Translations: [Major depressive disorder]Onset: 209918-85-6273YdjutbpFlyanrsupaqdou (9 sources)Primary osteoarthritis, left shoulder; Translations: [Arthropathy, unspecified, shoulder region]63-40-7982UnvctinBsacf acquired deformities (14 sources)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; Translations: [Contracture, right ankle]ChronicOther aftercare (1 source)Other nursing home (current) drug therapy; Translations: [OTH DEEP SEA DIVER CURRENT DRUG THERAPY]Onset: 32-38-0200ZovhziikGapik bone disease and musculoskeletal deformities (3 sources)Idiopathic aseptic necrosis of left shoulder; Translations: [Aseptic necrosis of bone, other]Onset: 628112-84-5054AkfsthyNzcmt circulatory disease (1 source)Elevated blood-pressure reading, without diagnosis of hypertension EpisodicOther connective tissue disease (12 sources)History of operative procedure on shoulder; Translations: [Presence of left artificial shoulder joint]34-81-5424ExgkxrvRpouu connective tissue disease (3 sources)History of reverse prosthetic total arthroplasty of left shoulder; Translations: [Presence of left artificial shoulder joint]04-75-4507MxdcfrhZlbde connective tissue disease (2 sources)Presence of left artificial shoulder joint; Translations: [Shoulder joint replacement]Onset: 303727-72-2237PnvuefmExtdl connective tissue disease (4 sources)History of left shoulder arthroplasty; Translations: [Presence of left artificial shoulder joint]Onset: 241832-17-9198EquemxjBubrx connective tissue disease (14 sources)Pain in limb; Translations: [Pain in right foot]EpisodicOther connective tissue disease (14 sources)Plantar fascial fibromatosis; Translations: [Plantar fascial fibromatosis]EpisodicOther connective tissue disease (2 sources)Shoulder girdle weakness; Translations: [Other symptoms and signs involving the musculoskeletal system]86-82-4837PcxoedqpGprac connective tissue disease (2 sources)Other symptoms and signs involving the musculoskeletal system; Translations: [Other symptoms involving nervous and musculoskeletal systems] 75-59-9727TfagxuxlRbrwh lower respiratory disease (2 sources)Nodule of lung; Translations: [Solitary pulmonary nodule]Episodic Other male genital disorders (20 sources)Induratio penis plastica; Translations: [Induration penis plastica] Onset: 522632-93-5643ElgmgkkMxlxz male genital disorders (14 sources)Impotence of organic origin; Translations: [Erectile dysfunction due to arterial insufficiency]ChronicOther male genital disorders (5 sources)Erectile dysfunction co-occurrent and due to arterial insufficiency 33-09-9802YwaowkeTekym male genital disorders (20 sources)Secondary erectile dysfunction; Translations: [Male erectile dysfunction, unspecified]Onset: 840234-84-5356CjzpzehTmddc nervous system disorders (14 sources)Paresthesia; Translations: [Paresthesia of skin]EpisodicOther nervous system disorders (1 source)Drug-induced myopathy; Translations: [Drug-induced myopathy]Onset: 65-21-8668SprcycgyPwzom non-traumatic joint disorders (7 sources)Pain in left shoulder; Translations: [Pain in joint, shoulder region] Onset: 37-36-0620SlzqfzqyQeuiz non-traumatic joint disorders (5 sources)Shoulder pain; Translations: [Pain in unspecified shoulder]09-13-2023 EpisodicOther non-traumatic joint disorders (9 sources)Pain of left wrist; Translations: [Pain in left wrist]07-18-2024 EpisodicOther non-traumatic joint disorders (3 sources)Instability of left shoulder joint; Translations: [Other instability, left shoulder]Onset: 955538-16-0347ZjhhpfnhTyxil non-traumatic joint disorders (1 source)Other instability, left shoulder; Translations: [Instability of left shoulder joint]Onset: 70-91-9963GrzicacvFoaip nutritional; endocrine; and metabolic disorders (1 source)OverweightEpisodicOther nutritional; endocrine; and metabolic disorders (5 sources)Body mass index 25-29 - -55-5768LygmkwehPtiuu nutritional; endocrine; and metabolic disorders (4 sources)Intentional weight tzjc20-68-8661CgukajfkMvqox screening for suspected conditions (not mental disorders or infectious disease) (20 sources)Blood chemistry abnormal; Translations: [Other specified abnormal findings of blood chemistry]Onset: 59-45-2144UfcecqvqCyibpbn on above:PSA: 1.12 - 02/2023, 1.09 - 02/2024, 0.91 - 06/2024Other skin disorders (14 sources)Hair follicle disorder; Translations: [Other specified follicular disorders]EpisodicOther skin disorders (14 sources)Vesicular eczema of hands and/or feet; Translations: [Dyshidrosis [pompholyx]]EpisodicOther upper respiratory disease (14 sources)Seasonal allergic rhinitis; Translations: [Other seasonal allergic rhinitis]ChronicOther upper respiratory disease (1 source)Other seasonal allergic rhinitisChronicOther upper respiratory disease (14 sources)Bleeding from nose; Translations: [Epistaxis]EpisodicOther upper respiratory disease (1 source)Cyst and mucocele of nose and nasal sinusEpisodicPhlebitis; thrombophlebitis and thromboembolism (3 sources)Phlebitis and thrombophlebitis of other sitesEpisodicResidual codes; unclassified (2 sources)History of operative procedure on cjgiybqh12-31-6166TqexllvhXxcsdzh and strains (2 sources)Strain of unspecified muscle(s) and tendon(s) at lower leg level, left leg, initial encounter; Translations: [Strain of muscle(s) and tendon(s) of the rotator cuff of left shoulder, initial encounter]EpisodicUnclassified (1 source)CONTACT W/AND (SUSP) EXPOS COVID-19; Translations: [CONTACT W/AND (SUSP) EXPOS COVID-19]Onset: 69-98-2929Maiztrkiscgn (1 source)Left shoulder pain, unspecified oonoustked49-15-3153 Past or Other Problems Problem ClassificationProblemDateDocumented DateEpisodic/ChronicEsophageal disorders (13 sources)Esophageal disorders; Translations: [Gastroesophageal reflux disease with esophagitis without hemorrhage]Other and unspecified benign neoplasm (20 sources)Tubular adenoma of colon; Translations: [Benign neoplasm of colon, unspecified]Onset: 749761-45-4980OxtdbbcqCfsfc infection (14 sources)Disease caused by 2019-nCoV; Translations: [COVID-19] Results Test NameValueInterpretationReference RangeFacilityXR Wrist - left 3 Viewson [id number] Result: 3 views of the left wrist, PA/lateral/oblique, taken today and saved to the permanent medical record. No acute osseous abnormalities. No slip degenerative changes. Ulnar positive variance.[facility] 3 Viewson [id number] Study observation (narrative)[facility] CenterOV [id number] Visit (ORTHMN) CHAVA VASQUEZ JR ([id number]) 1970 M Date Time Provider Department 11/18/24 9:45 AM BRIELLE KRAUS During your visit today, we recorded the following information about you: Brielle Kraus MD 11/18/2024 12:19 PM Signed [facility] NOTE Department of Orthopaedics Brielle Kraus MD [facility] NAME: Chava Vasquez JR CLINIC NO.: [id number] DATE: 11/18/2024 Interval Hx:Chava Vasquez JR is back to review the results of his left shoulder CT arthrogram and blood work. His inflammatory markers are low and his CT arthrogram shows evidence of glenoid component loosening with no rotator cuff tear. He is here to discuss the next step. PHYSICAL EXAMINATION: Incision appears well-healed. Forward elevation is passively to 150? and actively to 140?. External rotation is passively to 40? and actively to 30?. Internal rotation is to mid lumbar area. his strength is 4 out of 5 in internal rotation , 4 out of 5 in external rotation and 4 out of 5 in abduction in the plane of scapula. Belly press test is mildly positive. Positive Martin's test and positive Neer and Guy test. Upper extremity has intact sensory and motor function and has good perfusion distally. RADIOGRAPHIC STUDIES: CT arthrogram shows no evidence of extravasation of the dye out of the shoulder. There is clear loosening of the glenoid component with dye extravasating underneath the glenoid component and at least making it into the peripheral pegs. Implant is posteriorly lifted and there is gap formation anteriorly in front of the glenoid component. ASSESSMENT: Encounter Diagnosis ICD-10-CM 1. 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 S/P shoulder replacement, left Z96.612 PLAN: I told Chava Vasquez JR that his workup did not show any evidence of periprosthetic joint infection but given his age and male sex, I would not be surprised and there might be an occult infection in his right shoulder despite negative workup. He has a grossly loose glenoid component with some weakness in his subscap tendon on exam. My recommendation at this point would be a single-stage revision to a reverse total shoulder arthroplasty. Thankfully he has a platform humeral component that can be converted to a reverse total shoulder arthroplasty and he needs reconstruction on the glenoid side. His bone loss on the glenoid size is minimal at this point. Patient states that he needs to discuss this surgery with his primary care physician. I explained that delay in his revision surgery might lead to bone loss on the glenoid side and I do not recommend delaying revision surgery more than few months. He understands his problem and our recommendation and is going to reach out to my office when he will be ready to proceed with surgery.. If any questions or concerns arise, He should not hesitate to call. Brielle Kraus M.D. M.M.Sc. Shoulder and Elbow Surgeon Orthopaedic Surgery Department [place], [place] [address] Tell: [phone] Appt:[phone] Allergies As of Date: 11/18/2024 (No Known Allergies) Date Reviewed: 10/28/2024 Reviewed by: Hugo Mckeon MA - Fully Assessed Reason for Visit: Pain [78] Primary Visit Diagnosis: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] Other Visit Diagnosis:S/P shoulder replacement, left [Z96.612] Prescriptions as of 11/18/2024 - ALPRAZolam (XANAX) 0.25 mg tablet Take [...] 50-1,000 mg per tablet Take by mouth. 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 Follow-up and Disposition History for Enc (more content not included)...Normal [facility] CenterBacteria Fld Culton 24-22-6295Sjojwexe identified Cx Nom (Body fld)CULTURE, BODY FLD: No growth 14 days GRAM STAIN: No organisms seen No Polymorphonuclear Leukocytes Gram stain from primary specimenNormalMain Campus Medical CenterComment on above:Performed By: #### 611-4 #### [facility] CLIA [id number] [address] [place] [address] [place] AMERICABasophils Auto (Bld) [#/Vol] Ordered By: Max Tucker on 71-04-6556Bcppkgodp (Bld) [#/Vol]0.04 10*3/uL<0.11 [facility] HospitalBasophils/100 WBC Auto (Bld)Ordered By: Max Tucker on 59-49-8968Rrexymebs/100 WBC (Bld)0.5 %[facility] HospitalBlood manual differential comment interpretation narrativeOrdered By: Max Tucker on 06-60-6028Noxypl differential comment Rasheed (Bld) [Interp] AutoFayette County Memorial HospitalBody fluid crystal identification by light microscopyOrdered By: Brielle Kraus on 53-39-5222Qdlmlccf LM Nom (Body fld)None seenNone [facility] CampusC-REACTIVE PROTEINon 10-28-2024 CRP [Mass/Vol]mg/dLNINF - 0.9 mg/dLGalion Hospital W Auto Differential panel (Bld)on 27-28-6483Zqylxbqeb (Bld) [#/Vol]0.04 10*3/uLNINFCherrington Hospital Basophils/100 WBC (Bld)0.5 %[facility] HospitalDifferential cell count method Nom (Bld)AutoCleveland ClinicEosinophils (Bld) [#/Vol]0.06 10*3/uLNINFCherrington HospitalEosinophils/100 WBC (Bld)0.8 %[facility]rington HospitalErythrocyte distribution width (RBC) [Ratio]16.3 %High11.5 - 15.0 %[facility] HospitalHematocrit (Bld) [Volume fraction]40.8 %39.0 - 51.0 %[facility] HospitalHemoglobin (Bld) [Mass/Vol] 12.7 g/dLLow13.0 - 17.0 g/dLCherrington HospitalImmature granulocytes (Bld) [#/Vol] 0.03 10*3/uLNINFCherrington HospitalImmature granulocytes/100 WBC (Bld)0.4 % [facility] HospitalInterpretation and review of laboratory resultsAbnormalCleveland ClinicLymphocytes (Bld) [#/Vol]1.2 10*3/uLCherrington HospitalLymphocytes/100 WBC (Bld)16.4 %[facility] Jewish HospitalH (RBC) [Entitic mass]24.4 pgLow26.0 - 34.0 pg [facility] HospitalHC (RBC) [Mass/Vol]31.1 g/dL30.5 - 36.0 g/dLCherrington Hospital MCV (RBC) [Entitic vol]78.3 fLLow80.0 - 100.0 fLCleveland ClinicMonocytes (Bld) [#/Vol]0.61 10*3/uLNINFRed Hill ClinicMonocytes/100 WBC (Bld)8.4 %[facility] HospitalNeutrophils (Bld) [#/Vol]5.36 10*3/uLCherrington HospitalNeutrophils/100 WBC (Bld)73.5 %[facility] HospitalNucleated RBC (Bld) [#/Vol]NINFCBlanchard Valley Health [facility] Nucleated RBC/100 WBC (Bld) [Ratio]0 %/100 WBCCherrington HospitalPlatelet mean volume (Bld) [Entitic vol]8.8 fLLow9.0 - 12.7 fLCBlanchard Valley Health System Bluffton HospitalPlatelets (Bld) [#/Vol]311 10*3/uLCherrington HospitalRBC (Bld) [#/Vol]5.21 10*6/uL4.20 - 6.00 m/uL [facility] HospitalWBC (Bld) [#/Vol]7.3 10*3/uLRegency Hospital Company Basophils (Bld) [#/Vol]0.04 10*3/uLNormal<0.11CThe Jewish Hospital on above:Order Comment: Specimen Type: BLOOD SPECIMEN Ordering Facility: [facility] Address: [address] [place], [place] [address]Performed By: #### 4537-7, 83493-2 #### [facility] [place] [id number] [address] [place] [address] [place] AMERICABasophils/100 WBC (Bld)0.5 % NormalKettering Health Troy on above:Order Comment: Specimen Type: BLOOD SPECIMEN Ordering Facility: [facility] Address: [address] [place], [place] [address]Performed By: #### 4537-7, 61791-1 #### [facility] [place] [id number] [address] [place] [address] [place] AMERICADifferential cell count method Nom (Bld)AutoNormalCThe Jewish Hospital on above:Order Comment: Specimen Type: BLOOD SPECIMEN Ordering Facility: [facility] Address: [address] [place], [place] [address]Performed By: #### 4537-7, 24331-6 #### [facility] [place] [id number] [address] [place], [place] [id number] [place] AMERICAEosinophils (Bld) [#/Vol] 0.06 10*3/uLNormal<0.46[facility] on above:Order Comment: Specimen Type: BLOOD SPECIMEN Ordering Facility: [facility] Address: [address] [place], [place] [address]Performed By: #### 4537-7, 40946-5 #### [facility] CLIA [id number] [address] [place] [address] [place] AMERICAEosinophils/100 WBC (Bld)0.8 %NormalKettering Health Troy on above:Order Comment: Specimen Type: BLOOD SPECIMEN Ordering Facility: [facility] Address: [address] [place], [place] [address]Performed By: #### 4537-7, 50870-9 #### [facility] CLIA [id number] [address] [place] [address] [place] AMERICAErythrocyte distribution width (RBC) [Ratio]16.3 %High11.5-15.0[facility] on above:Order Comment: Specimen Type: BLOOD SPECIMEN Ordering Facility: [facility] Address: [address] [place], [place] [address]Performed By: #### 4537-7, 27512-8 #### [facility] CLIA [id number] [address] [place] [address] [place] AMERICAHematocrit (Bld) [Volume fraction]40.8 %Xpiroq61.0-51.0[facility] on above:Order Comment: Specimen Type: BLOOD SPECIMEN Ordering Facility: [facility] Address: [address] [place], [place] [address]Performed By: #### 4537-7, 03899-2 #### [facility] CLIA [id number] [address] [place] [address] [place] AMERICAHemoglobin (Bld) [Mass/Vol] 12.7 g/dLLow13.0-17.0[facility] on above:Order Comment: Specimen Type: BLOOD SPECIMEN Ordering Facility: [facility] Address: [address] [place], [place] [address]Performed By: #### 4537-7, 38548-1 #### [facility] CLIA [id number] [address] [place] [address] [place] AMERICAImmature granulocytes (Bld) [#/Vol]0.03 10*3/uLNormal<0.10[facility] on above:Order Comment: Specimen Type: BLOOD SPECIMEN Ordering Facility: [facility] Address: [address] [place], [place] [address]Performed By: #### 4537-7, 05342-6 #### [facility] CLIA [id number] [address] [place] [address] [place] AMERICAImmature granulocytes/100 WBC (Bld)0.4 %NormalKettering Health Troy on above:Order Comment: Specimen Type: BLOOD SPECIMEN Ordering Facility: [facility] Address: [address] [place], [place] [address]Performed By: #### 4537-7, 09066-5 #### [facility] CLIA [id number] [address] [place] [address] [place] AMERICALymphocytes (Bld) [#/Vol] 1.20 10*3/uLNormal1.00-4.00[facility] on above:Order Comment: Specimen Type: BLOOD SPECIMEN Ordering Facility: [facility] Address: [address] [place], [place] [address]Performed By: #### 4537-7, 91166-8 #### [facility] CLIA [id number] [address] [place] [address] [place] AMERICALymphocytes/100 WBC (Bld) 16.4 %NormalKettering Health Troy on above:Order Comment: Specimen Type: BLOOD SPECIMEN Ordering Facility: [facility] Address: [address] [place], [place] [address]Performed By: #### 4537-7, 76595-1 #### [facility] CLIA [id number] [address] [place], [place] [address]MCH (RBC) [Entitic mass]24.4 pgLow26.0-34.0[facility] on above:Order Comment: Specimen Type: BLOOD SPECIMEN Ordering Facility: [facility] Address: [address] [place], [place] [address]Performed By: #### 4537-7, 41843-2 #### [facility] CLIA [id number] [address] [place], [place] [address]MCHC (RBC) [Mass/Vol]31.1 g/sNEnqszr36.5-36.0[facility] on above:Order Comment: Specimen Type: BLOOD SPECIMEN Ordering Facility: [facility] Address: [address] [place], [place] [address]Performed By: #### 4537-7, 91064-1 #### [facility] CLIA [id number] [address] [place], [place] [address]MCV (RBC) [Entitic vol]78.3 fLLow80.0-100.0[facility] on above:Order Comment: Specimen Type: BLOOD SPECIMEN Ordering Facility: [facility] Address: [address] [place], [place] [address]Performed By: #### 4537-7, 27306-3 #### [facility] CLIA [id number] [address] [place] [address] UNITED [facility] LEIGH HOSPITALMonocytes (Bld) [#/Vol]0.61 10*3/uLNormal<0.87[facility] on above:Order Comment: Specimen Type: BLOOD SPECIMEN Ordering Facility: [facility] Address: [address] [place], [place] [address]Performed By: #### 4537-7, 17504-7 #### [facility] CLIA [id number] [address] [place] [address] [place] AMERICAMonocytes/100 WBC (Bld)8.4 % NormalKettering Health Troy on above:Order Comment: Specimen Type: BLOOD SPECIMEN Ordering Facility: [facility] Address: [address] [place], [place] [address]Performed By: #### 4537-7, 15273-0 #### [facility] CLIA [id number] [address] [place] [address] [place] AMERICANeutrophils (Bld) [#/Vol] 5.36 10*3/uLNormal1.45-7.50[facility] on above:Order Comment: Specimen Type: BLOOD SPECIMEN Ordering Facility: [facility] Address: [address] [place], [place] [address]Performed By: #### 4537-7, 71604-5 #### [facility] CLIA [id number] [address] [place] [address] [place] AMERICANeutrophils/100 WBC (Bld) 73.5 %NormalKettering Health Troy on above:Order Comment: Specimen Type: BLOOD SPECIMEN Ordering Facility: [facility] Address: [address] [place], [place] [address]Performed By: #### 4537-7, 02305-9 #### [facility] CLIA [id number] [address] [place] [address] [place] AMERICANucleated RBC (Bld) [#/Vol] 10*3/uLNormal<0.01[facility] on above:Order Comment: Specimen Type: BLOOD SPECIMEN Ordering Facility: [facility] Address: [address] [place], [place] [address]Performed By: #### 4537-7, 07264-8 #### [facility] CLIA [id number] [address] [place] [address] [place] AMERICANucleated RBC/100 WBC (Bld) [Ratio]0.0 /100 WBCNoalCThe Jewish Hospital on above:Order Comment: Specimen Type: BLOOD SPECIMEN Ordering Facility: [facility] Address: [address] [place], [place] [address]Performed By: #### 4537-7, 32854-9 #### [facility] CLIA [id number] [address] [place] [address] [place] AMERICAPlatelet mean volume (Bld) [Entitic vol]8.8 fLLow9.0-12.7CThe [facility] Hospital on above:Order Comment: Specimen Type: BLOOD SPECIMEN Ordering Facility: [facility] Address: [address] [place], [place] [address]Performed By: #### 4537-7, 59332-7 #### [facility] CLIA [id number] [address] [place] [address] [place] AMERICAPlatelets (Bld) [#/Vol]311 10*3/bMIzobpe137-581PowoiliszKettering Health Troy on above:Order Comment: Specimen Type: BLOOD SPECIMEN Ordering Facility: [facility] Address: [address] [place], [place] [address]Performed By: #### 4537-7, 05678-6 #### [facility] IA [id number] [address] [place] [address] [place] AMERICARBC (Bld) [#/Vol]5.21 10*6/uLNormal4.20-6.00[facility] on above:Order Comment: Specimen Type: BLOOD SPECIMEN Ordering Facility: [facility] Address: [address] [place], [place] [address]Performed By: #### 4537-7, 13973-1 #### [facility] CLIA [id number] [address] [place], [place] [address] [place] AMERICAWBC (Bld) [#/Vol]7.30 10*3/uLNormal3.70-11.00[facility] on above:Order Comment: Specimen Type: BLOOD SPECIMEN Ordering Facility: [facility] Address: [address] [place], [place] [address]Performed By: #### 4537-7, 73612-5 #### [facility] CLIA [id number] [address] [place] [address] [place] AMERICACNOVon 64-83-4378FIOZRoxbve Visit (ORTHMN) CHAVA VASQUEZ JR ([id number]) 1970 M Date Time Provider Department 10/28/24 10:15 AM BRIELLE KRAUS During your visit today, we recorded the following information about you: Brielle Kraus MD 10/28/2024 1:20 PM Signed Brielle Kraus M.D. M.M.Sc. Senior Recruitment Consultant of Orthopaedic Surgery at [place] [address] Office: [phone] Consult requested for an opinion regarding the evaluation and treatment of the above patient. My final impression and recommendations will be communicated back to the requesting physician by way of the shared medical record or letter via US mail. Patient info: Chava Vasquez JR ([id number]) Service date: 10/28/2024 Referred by: Zen Rdz DO [address] [place] [id number] PCP: DO Garrett Chief Complaint: Left shoulder pain. HPI:Cahva Melendezbernardo is a 54 year old Left hand dominant male who presents with left shoulder pain S/p TSA with Dr. Kajal DO. His complaints include subjective instability since surgery and difficulty with active forward flexion and internal and external rotation. No infection symptoms such as erythema, fevers. Negative ESR/CRP by Dr. Rdz. He fell after surgery while walking down stairs, but nothing visible on XR after the fall. He has a hx of DM II, glucose controlled with medications. Chava reports a current pain level of 5 (Shoulder-Left). He describes the pain as Sharp. The pain is Continuous . Interventions tried include Medication (wears a brace). Most recent shoulder imaging was completed on 09/13/2024 (XR SHOULDER LIMITED 2V AP/TRUE AP LEFT) . PAIN EVALUATION 10/28/2024 0930 Pain Level: 5 Pain Location: Shoulder-Left Description: Sharp Duration Amount of Time: -- april 2024 Frequency: Continuous Intervention/Comfort measure: Medication wears a brace Other pertinent Hx: Employer And Job Title: None on file Years Of Education Completed: Not specified Marital Status: BWC: no Physical Therapy: Yes has been going Corticosteroid Injections: No History of Smoking: No History of frequent fall: no How many falls in the past 1 year: 1 fall walking down stairs Prior treatments: Modified Activity REVIEW OF SYMPTOMS: Constitutional: Any recent fevers? Negative Cardiovascular: Any chest pain? Negative Respiratory: Any shortness or breath? Negative Gastrointestinal: Any abdominal discomfort? Negative Integumentary: Any recent skin changes or rashes? Negative Neurologic: Any numbness or tingling? Negative Endocrine: Any diagnosis of diabetes? Negative Hematologic: Any recent bleeding episodes? Negative No family history on file. No past medical history on file. No past surgical history on file. ALLERGIES No Known Allergies Problem List: reviewed and updated. Social History: Social History Tobacco Use Smoking status: Never Smokeless tobacco: Former Current Outpatient Medications Medication Sig ALPRAZolam (XANAX) 0.25 mg tablet Take 0.25 mg by mouth. atorvastatin (LIPITOR) 80 mg tablet blood sugar diagnostic (ONETOUCH ULTRA TEST STRIP) test strip FREESTYLE LITE METER monitoring kit USE TO TEST HOME BLOOD SUGAR ONCE EVERY DAY FREESTYLE LITE STRIPS test strip TEST WITH 1 STRIP DAILY NEEDED citalopram (CELEXA) 20 mg tablet glimepiride (AMARYL) 2 mg tablet FREESTYLE LANCETS 28 gauge USE TO TEST HOME BLOOD SUGAR ONCE DAILY metFORMIN (GLUCOPHAGE) 1,000 mg tablet omeprazole (PRILOSEC) 40 mg capsule TAKE 1 CAPSULE ON EMPTY STOMACH FOLLOWED IN 30 MINUTES BY BREAKFAST sildenafil (VIAGRA) 100 mg tablet Take 100 mg by mouth. SITagliptin-metFORMIN (JANUMET) 50-1,000 mg per tablet Take by mouth. No current facility-administered medications for this visit. General Physical Exam: There were no vitals taken for this visit. No weight on file for this encounter. Constitutional: Pleasant, well-appearing, no acute distress. Resp: breathing is unlabored without audible wheeze Vascular: Normal pedal and radial pulses, no cyanosis, no venous stasis changes Skin: No overlying skin change, ecchymosis, or erythema. Psychiatric: Pleasant, direct, appropriate mood and affect Focused Musculoskeletal/Neurologic exam: Left Shoulder Atrophy/asymmetry No Scapular dyskinesia No AC tenderness No ROM (Passive/Active): FE (degree) 45/80 ER (degree) 30/30 ER Lag (degree) 20 IR (degree) Sacrum Strength (1-5) ABD in plane of scapula 3/5 ER 3/5 IR 3/5 Provocative tests: Job?s test Positive Neer and Guy test Deferred Belly press test Positive O?Jose?s test Speed's test Hornblower's sign Negative Cross Body Adduction Apprehension Sulcus Load and Shift Nerve deficit (motor/sensory) Radial n. Negative Median n. Negative Ulnar n. Negative Axillary n. Negative (more content not included)...NormalMain Campus Medical CenterCRP SerPl-mCncon 95-91-1950FFH [Mass/Vol]mg/LNormal<0.9C[facility] on above:Order Comment: Specimen Type: BLOOD SPECIMEN Ordering Facility: [facility] Address: [address] [place], [place] [address]Performed By: #### [id number] #### [facility] CLIA [id number] [address] [place] [address] [place] [address] [place] AMERICACRP [Mass/Vol]on 10-28-2024 Interpretation and review of laboratory resultsNormalCCleveland Clinic Akron GeneralESR Zekeergren method (Bld) [Velocity]on 42-66-9890WDB (Bld) [Velocity]2 mm/hCleveland ClinicInterpretation and review of laboratory resultsNormal [facility] Hospital CompanyESR (Bld) [Velocity]2 mm/hNormal0-15[facility] on above:Order Comment: Specimen Type: BLOOD SPECIMEN Ordering Facility: [facility] Address: [address] [place], [place] [address]Performed By: #### [id number], 57370-3 #### [facility] CLIA [id number] [address] [place] [address] [place] OF AMERICAEosinophils/100 WBC Auto (Bld)Ordered By: Max Tucker on 06-04-6897Mhzqpvyqyuv/100 WBC (Bld)0.8 % [facility] HospitalErythrocyte distribution width Auto (RBC) [Ratio]Ordered By: Max Tucker on 93-40-4246Dqblokihmob distribution width (RBC) [Ratio]16.3 %High11.5-15.0[facility] HospitalEvaluation of color of body fluidOrdered By: Brielle Kraus on 73-77-4960Bttqb (Body fld) BloodyAbnormalYellowFayette County Memorial HospitalHematocrit Auto (Bld) [Volume fraction]Ordered By: Max Tucker on 83-01-9789Noxpupbfma (Bld) [Volume fraction]40.8 %39.0-51.0[facility] HospitalHemoglobin [Mass/volume] in BloodOrdered By: Max Tucker on 08-52-3904Ixheayffhw (Bld) [Mass/Vol]12.7 g/dLLow13.0-17.0[facility] HospitalLaboratory - Hematology and Cell countsOrdered By: Max Tucker on 68-55-6438Cdplpyseiab (Bld) [#/Vol]0.06 10*3/uL<0.46[facility] HospitalImmature granulocytes (Bld) [#/Vol]0.03 10*3/uL<0.10[facility] Immature granulocytes/100 WBC (Bld)0.4 %[facility] - Hematology and Cell countsOrdered By: Brielle Kraus on 10-28-2024 ESR (Bld) [Velocity]2 mm/h0-15[facility] HospitalLaboratory - Specimen informationOrdered By: Brielle Kraus on 65-04-8096Mrjtqllekf (U)Cloudy AbnormalCleSheltering Arms HospitalLarge Joint Arthro/Inj: L shoulder jointon 37-09-0929KrciavbpBrielle Kraus MD 10/28/2024 1:20 PM Large Joint Arthro/Inj: L shoulder joint 10/28/2024 10:54 AM The procedure site was prepped in the usual sterile fashion. Site: L shoulder joint Aspirate: 2 mL bloody; sent for lab analysis Outcome: Tolerated well, no immediate complications Post-injection instructions were reviewed with the patient and the patient voiced understanding of these instructions. Informed Consent Consent Obtained: Verbal [place] Protocol A moment to CARE was completed. SIGN IN Sign in communication not applicable due to emergent procedure. Personnel directly involved with the procedure wore the appropriate PPE. Special Equipment: Yes Patient/Surrogate Stated/Verified: Date of , Patient name and Relevant allergies TIME OUT Relevant labs, photos, and/or imaging studies have been reviewed. Intended patient and procedure match source documents. Consent obtained and matches the intended procedure. Correct side/site marked and visible. Medications required for procedure verified. Fire risk assessed and interventions discussed. Implant(s) inserted. Correct implant(s) confirmed including size and side. SIGN OUT All specimens correctly labeled and sent. All instruments, equipment, possible retained foreign bodies accounted for. The post-procedure POC has been communicated to the patient or surrogate. Post-procedure POC communicated to patient's multidisciplinary team (including bedside nurse for hospitalized patients).[facility] Hospital CompanyLeukocytes [#/volume] corrected for nucleated erythrocytes in Blood by Automated counOrdered By: Max Tucker on 71-72-4936DNN corrected for nucl RBC Auto (Bld) [#/Vol]7.30 k/uL3.70-11.00[facility] Lymphocytes Auto (Bld) [#/Vol]Ordered By: Max Tucker on 43-48-7584Mmkrianggcq (Bld) [#/Vol]1.20 10*3/uL1.00-4.00[facility] Lymphocytes/100 WBC Auto (Bld)Ordered By: Max Tucker on 10-28-2024 Lymphocytes/100 WBC (Bld)16.4 %[facility] Auto (RBC) [Entitic mass]Ordered By: Max Tucker on 57-73-9024LLN (RBC) [Entitic mass] 24.4 pgLow26.0-34.0[facility]'s HospitalHC Auto (RBC) [Mass/Vol] Ordered By: Max Tucker on 95-20-7761FTMV (RBC) [Mass/Vol]31.1 g/dL30.5-36.0 [facility] HospitalV Auto (RBC) [Entitic vol]Ordered By: Max Tucker on 53-50-5908LPB (RBC) [Entitic vol]78.3 fLLow80.0-100.0[facility] HospitalMansouthern ohio medical center body fluid eosinophils/100 leukocytesOrdered By: Brielle Kraus on 58-51-3977Xfvtwuzokyx/100 WBC Manual cnt (Body fld)2FMarietta Memorial HospitalManual body fluid lymphocytes/100 leukocytesOrdered By: Brielle Kraus on 53-44-1999Gjtkvobitvc/100 WBC Manual cnt (Body fld)6FMarietta Memorial HospitalMonocytes Auto (Bld) [#/Vol]Ordered By: Max Tucker on 71-00-4498Xgpezrgmc (Bld) [#/Vol]0.61 10*3/uL<0.87[facility] HospitalMonocytes/100 WBC Auto (Bld)Ordered By: Max Tucker on 10-28-2024 Monocytes/100 WBC (Bld)8.4 %[facility] HospitalNeutrophils Auto (Bld) [#/Vol]Ordered By: Max Tucker on 42-07-6951Rxqvmbpzeeg (Bld) [#/Vol] 5.36 10*3/uL1.45-7.50[facility] HospitalNeutrophils/100 WBC Auto (Bld)Ordered By: Max Tucker on 60-70-7720Mjzikhkmtpf/100 WBC (Bld)73.5 % [facility] HospitalNeutrophils/100 WBC Manual cnt (Body fld) Ordered By: Brielle Kraus on 66-93-6708Evefbiunvcq/100 WBC (Body fld)87 %High 0-<25[facility] HospitalNo Panel InformationOrdered By: Brielle Kraus on 55-84-0618R-Reactive Protein, Quantitative<0.3 mg/dL<0.9[facility] HospitalBody Fluid Macrophages (%)1FMarietta Memorial HospitalBody Fluid Monocytes %4FMarietta Memorial HospitalBody Fluid RBC [id number] /uLHigh<2000[facility] HospitalBody Fluid TypeShoulder, LeftFayette County Memorial HospitalBody Fluid IXO577 /uLHigh0-200[facility] HospitalDifferential Total Cells Olangsf379 cells counted [facility] HospitalMiscellaneous Test CommentReviewed by Edna Johnston MDSt. John of God Hospitalynovial Fluid Crystals Preliminary PRELIMINARY REPORT No diagnostic crystals seen. SEE FINAL SF PATH REVIEW [facility] HospitalNucleated RBC Auto (Bld) [#/Vol]Ordered By: Max Tucker on 78-65-8793Odomccwog RBC (Bld) [#/Vol]10*3/uL<0.01[facility] HospitalNucleated erythrocytes [Presence] in Blood by Automated countOrdered By: Max Tucker on 55-32-7238Pmdgpihpm RBC Auto Ql (Bld)0.0 /100{WBC}[facility] HospitalPlatelet mean volume Auto (Bld) [Entitic vol]Ordered By: Max Tucker on 43-66-5183Qjhppyfn mean volume (Bld) [Entitic vol]8.8 fLLow9.0-12.7FMarietta Memorial HospitalPlatelets Auto (Bld) [#/Vol]Ordered By: Max Tucker on 42-56-1651Htcvijhrt (Bld) [#/Vol]311 10*3/xK630-033LhoovabwqFayette County Memorial HospitalRBC Auto (Bld) [#/Vol]Ordered By: Max Tucker on 00-41-2641KPF (Bld) [#/Vol]5.21 10*6/uL4.20-6.00St. John of God HospitalYNOVIAL FLUID MANUAL DIFFon 46-72-8555CIY TTL, SYNOVIAL FMVPD924 cells countedNormalCThe [facility] Hospital on above:Order Comment: Specimen Type: FLUID SPECIMEN Ordering Facility: [facility] Address: [address] [id number] By: #### KINJAL, [id number], RTSYNF #### [facility] CLIA [id number] [address] [place] [address] [place] OF AMERICAEOSIN %, MD9LmycfzQmahnwmjk [facility] on above:Order Comment: Specimen Type: FLUID SPECIMEN Ordering Facility: [facility] Address: [address] [place], [place] [address]Performed By: #### KINJAL, [id number], RTSYNF #### [facility] CLIA [id number] [address] [place] [address] [place] OF AMERICALYMPH%, NA7AmuhqyTzvpzgfwdMemorial Health System [facility] on above:Order Comment: Specimen Type: FLUID SPECIMEN Ordering Facility: [facility] Address: [address] [place], [place] [address]Performed By: #### KINJAL, [id number], RTSYNF #### [facility] CLIA [id number] [address] [place] [address] [place] OF AMERICAMACRO%, PJ0AfgvkdFjvptdicbMemorial Health System [facility] on above:Order Comment: Specimen Type: FLUID SPECIMEN Ordering Facility: [facility] Address: [address] [place], [place] [id number] By: #### KINJAL, [id number], RTSYNF #### [facility] CLIA [id number] [address] [place] [address] [place] OF AMERICAMONO%, VO6ZzdzfnTvbaesemoMemorial Health System [facility] on above:Order Comment: Specimen Type: FLUID SPECIMEN Ordering Facility: [facility] Address: [address] [place], [place] [address]Performed By: #### KINJAL, [id number], RTSYNF #### [facility] CLIA [id number] [address], [place] [facility] [place] OF AMERICANEUT%53Ruqy9-<25[facility] on above:Order Comment: Specimen Type: FLUID SPECIMEN Ordering Facility: [facility] Address: [address] [place], [place] [address]Performed By: #### KINJAL, [id number], RTSYNF #### [facility] CLIA [id number] [address] [place] [address] OF AMERICASYNOVIAL FLUID, CRYSTAL ID/PATHOLOGIST INTERPRETATIONon 30-41-9166TWXANPF PRELIM, SFPRELIMINARY REPORT No diagnostic crystals seen. SEE FINAL SF PATH REVIEWNoOhio Valley Surgical Hospital on above:Order Comment: Specimen Type: FLUID SPECIMEN Ordering Facility: [facility] Address: [address] [place], [place] [address]Performed By: #### KINJAL, [id number], RTSYNF #### [facility] CLIA [id number] [address] [place] [address] OF AMERICACRYSTAL REVIEWReviewed by Edna Johnston MDNoOhio Valley Surgical Hospital on above:Order Comment: Specimen Type: FLUID SPECIMEN Ordering Facility: [facility] Address: [address] [place], [place] [address]Performed By: #### KINJAL, [id number], RTSYNF #### [facility] CLIA [id number] [address] [place] [address] [place] [address] [place] [address] STATES OF AMERICACrystals LM Nom (Syn fld) None seenNormalNone seenKettering Health Troy on above:Order Comment: Specimen Type: FLUID SPECIMEN Ordering Facility: [facility] Address: [address] [place], [place] [address]Performed By: #### KINJAL, [id number], RTSYNF #### [facility] CLIA [id number] [address] [place] [address] [place] [address] [place] OF AMERICASYNOVIAL FLUID, ROUTINE Ordered By: Tiffany Mcdonald on 04-00-4482Bklhlqc (Unsp spec)CloudyAbnormalClear Cherrington HospitalClarity (Unsp spec)[facility] on above:Unable to assay. Quantity not sufficient.Color (Syn fld)BloodyAbnormalYellowCherrington HospitalColor (Syn fld)[facility] on above:Unable to assay. Quantity not sufficient.Interpretation and review of laboratory resultsAbnormalCUniversity [facility] Manual cnt (Syn fld) [#/Vol][id number] /uLHighNINF - 2000 /uLMercy Health Willard Hospitalpecimen source Nom (Unsp spec)Shoulder, LeftLancaster Municipal Hospital Manual cnt (Syn fld) [#/Vol]817 /uLHigh0 - 200 /uLRegency Hospital Company SYNOVIAL FLUID, ROUTINEon 96-90-8903Zwkqsky (Unsp spec)NormalClearCThe [facility] Hospital on above:Order Comment: Specimen Type: FLUID SPECIMEN Ordering Facility: [facility] Address: [address] [place], [place] [address]Result Comment: Unable to assay. Quantity not sufficient.Performed By: #### KINJAL, [id number], RTSYNF #### [facility] CLIA [id number] [address] [place] [address] (Syn fld)NormalYellow [facility] on above:Order Comment: Specimen Type: FLUID SPECIMEN Ordering Facility: [facility] Address: [address] [place], [place] [address]Result Comment: Unable to assay. Quantity not sufficient.Performed By: #### KINJAL, [id number], RTSYNF #### [facility] CLIA [id number] [address] [place] [address] Manual cnt (Syn fld) [#/Vol]2151061 /uLHigh<2000[facility] on above:Order Comment: Specimen Type: FLUID SPECIMEN Ordering Facility: [facility] Address: [address] [place], [place] [address]Performed By: #### SFCRID, [id number], RTSYNF #### [facility] CLIA [id number] [address] [place] [address] [place] OF AMERICASpecimen source Nom (Unsp spec)Shoulder, LeftNormalCThe [facility] Hospital on above:Order Comment: Specimen Type: FLUID SPECIMEN Ordering Facility: [facility] Address: [address] [place], [place] [address]Performed By: #### KINJAL [id number], RTSYNF #### [facility] CLIA [id number] [address] [place] [address] [place] OF AMERICAWBC Manual cnt (Syn fld) [#/Vol]817 /uLHigh0-200[facility] on above:Order Comment: Specimen Type: FLUID SPECIMEN Ordering Facility: [facility] Address: [address] [place], [place] [address]Performed By: #### KINJAL [id number], RTSYNF #### [facility] CLIA [id number] [address] [place] [address] [place] OF BANSSKPLvW5j HPLC (Bld) [Mass fraction]Ordered By: Max Tucker on 45-09-5954ErW3v (Bld) [Mass fraction]8.3 % [facility] HospitalLab Miscellaneous-LCon 74-74-7827Icx MiscellaneousCOMMENTInvalid Interpretation [facility] Comment on above:Result Comment: Test Ordered: [id number] Interleukin-6, Serum Interleukin-6, Serum <2.5 pg/mL BN Reference Range: 0.0-13.0 This test has not been FDA cleared or approved. This test has been authorized by FDA under an EUA for use by authorized laboratories. This test has been authorized only to assist in identifying severe inflammatory response, when used as an aid in determining the risk of intubation with mechanical ventilation in confirmed COVID-19 patients. This test is only authorized for the duration of the declaration that circumstances exist justifying the authorization of emergency use of medical devices under Section 564(b)(1) of the Act, 21 U.S.C. / 360bbb-3(b)(1), unless the authorization is terminated or revoked sooner. Based on the available clinical data, PCR-confirmed COVID-19 patients with IL-6 concentrations >35.0 pg/mL at presentation are at risk for mechanical ventilation during their hospitalization. IL-6 values should be used in conjunction with clinical findings and the results of other laboratory findings. IL-6 values alone are not indicative of the need for endotracheal intubation or mechanical ventilation. Performed at: Lab[address] [id number] PhD Tano Alvarezformed By: #### [id number] #### [facility] [address] [place] [address]GJO w/ Auto Diffon 17-39-6198Aqaiwcvi Absolute0.0 E9/LNormal 0.0-0.2FProMedica Fostoria Community HospitalComment on above:Performed By: #### [id number] #### [facility] [address] [place] [address]89[address]Jgjshaery/100 WBC (Bld)0.7 %Normal0.0-2.0NOMS HealthcareComment on above:Performed By: #### [id number] #### [facility] [address] [place] [address] 37335Sse Absolute0.1 E9/LNormal0.0-0.5FProMedica Fostoria Community Hospital Comment on above:Performed By: #### [id number] #### [facility] [address] [place] [address] 329[address]Mumwhelskva/100 WBC (Bld)1.6 %Normal0.0-8.0[facility] Comment on above:Performed By: #### [id number] #### [facility] [address] [place] [address] 36[address]Qiorrjgaoff distribution width (RBC) [Ratio]16.1 %High10.9-14.2 NOM[facility] HealthcareComment on above:Performed By: #### [id number] #### [facility] [address] [place] [address] 385[address]Azvzsizneq (Bld) [Volume fraction]39.8 %Neahhb07.7-49.0NOMS HealthcareComment on above:Performed By: #### [id number] #### [facility] [address] [place] [address] 468[address]Gvhhqgjvgl (Bld) [Mass/Vol]13.0 g/dLLow13.5-17.5[facility] Medical CenterComment on above:Performed By: #### [id number] #### [facility] [address] [place] [address] 259[address]Zylkz Absolute0.8 E9/LLow1.0-4.0[facility] Comment on above:Performed By: #### [id number] #### [facility] [address] [place] [address] 707[address]Ajzgeshnspi/100 WBC (Bld)12.3 %Low14.0-50.0[facility] Comment on above:Performed By: #### [id number] #### [facility] [address] [place] [address] 83149IEB (RBC) [Entitic mass]24.9 pgLow27.0-34.0[facility] Comment on above:Performed By: #### [id number] #### [facility] [address] [place] [address] 16152EVGO (RBC) [Mass/Vol]32.7 g/cNDezevb29.4-36.0[facility] Comment on above:Performed By: #### [id number] #### [facility] [address] [place] [address] 684[address]QMC (RBC) [Entitic vol]76.2 fLLow80.0-100.0[facility] Comment on above:Performed By: #### [id number] #### [facility] [address] [place] [address] 39538Yfvl Absolute0.5 E9/LNormal0.2-1.0[facility] Comment on above:Performed By: #### [id number] #### [facility] [address] [place] [address] 52091Livkhnazn/100 WBC (Bld)7.8 %Normal4.0-14.0[facility] Comment on above:Performed By: #### [id number] #### [facility] [address] [place], [place] [address]Qkeumk Absolute5.3 E9/LNormal2.0-7.5FProMedica Fostoria Community Hospital Comment on above:Performed By: #### [id number] #### [facility] [address] [place], [place] [address]IKJGBK AUTO77.6 %High36.0-75.0NOCT HealthcareComment on above: Performed By: #### [id number] #### [facility] [address] [place] [address] 92525Coqtpxoc834.0 E9/QNydhpo082.0-500.0[facility] Comment on above:Performed By: #### [id number] #### [facility] [address] [place] [address] 16235Uligwrxk mean volume (Bld) [Entitic vol]7.0 fLNormal6.4-10.8 [facility] HospitalComment on above:Performed By: #### [id number] #### [facility] [address] [place] [address] 06187UBI0.2 E12/LNormal4.3-5.9[facility] HospitalComment on above:Performed By: #### [id number] #### [facility] [address] [place] [address] 464[address]FGG7.8 E9/LNormal4.0-11.0[facility] HospitalComment on above:Performed By: #### [id number] #### [facility] [address] [place] [address] 550[address]WIQZKHZEWPrndppj By: SYSTEM SYSTEM on 58-04-4293AEK [Mass/Vol] 0.4 mg/dLNormal<=1.9mg/dLRemisol ChemCRPon 01-65-4361JHG6.4 mg/dLNormal<=1.[address] [facility] CenterComment on above:Performed By: #### [id number] #### [facility] [address] [place], [place] [address]FE UPPER EXTREMITY W/ CONTRAST LEFTon 09-24-2024 Exam Date/Time: 09/24/2024 12:00 EDT Reason for Exam: Z96.612 Report IMPRESSION: A ROTATOR CUFF TEAR IS NOT IDENTIFIED. CONTRAST UNDERCUTTING THE ANTERIOR HALF OF THE GLENOID COMPONENT AND ALONG THE TIPS OF 2 OF THE SCREWS WITHIN THE GLENOID IS CONCERNING FOR LOOSENING OF THE GLENOID COMPONENT. EXAMINATION: CT Upper Extremity w/ Contrast Left HISTORY: Shoulder pain. Recent injury. COMPARISON: Left shoulder CT 04/30/2024 TECHNIQUE: Multiple contiguous axial images were obtained of the left shoulder after intra-articular injection of a 19 mL solution of Isovue-300 and saline . Multiplanar reformats were obtained. FINDINGS: Contrast is present deep to the anterior half of the glenoid component. Contrast is also present within the glenoid adjacent to the tip of the 2 inferior screws. No contrast within the rotator cuff or subacromial/subdeltoid bursa to suggest full-thickness rotator cuff tear. Shoulder girdle musculature appears within normal limits by CT. All CT scans at this facility use dose modulation, iterative reconstruction, and/or weight based dosing when appropriate to reduce radiation dose to as low as reasonably achievable. Technical Comments: GFR (mL/min/1/73m2) na Contrast: Isovue 300 Contrast amount in ml's: 19.00 Ordering Provider: Zen Rdz FINAL REPORT Dictated: 09/24/2024 3:09 pm Chava Robert DO Signed (Electronic Signature): 09/24/2024 3:09 pm Signed by: Chava Robert DO Transcribed by: SALVADOR Technologist: CASSANDRA,[facility] – WATONGARadiology, Radiologist, - 09/24/2024 Exam Date/Time: 09/24/2024 12:00 EDT Reason for Exam: Z96.612 Report IMPRESSION: A ROTATOR CUFF TEAR IS NOT IDENTIFIED. CONTRAST UNDERCUTTING THE ANTERIOR HALF OF THE GLENOID COMPONENT AND ALONG THE TIPS OF 2 OF THE SCREWS WITHIN THE GLENOID IS CONCERNING FOR LOOSENING OF THE GLENOID COMPONENT. EXAMINATION: CT Upper Extremity w/ Contrast Left HISTORY: Shoulder pain. Recent injury. COMPARISON: Left shoulder CT 04/30/2024 TECHNIQUE: Multiple contiguous axial images were obtained of the left shoulder after intra-articular injection of a 19 mL solution of Isovue-300 and saline . Multiplanar reformats were obtained. FINDINGS: Contrast is present deep to the anterior half of the glenoid component. Contrast is also present within the glenoid adjacent to the tip of the 2 inferior screws. No contrast within the rotator cuff or subacromial/subdeltoid bursa to suggest full-thickness rotator cuff tear. Shoulder girdle musculature appears within normal limits by CT. All CT scans at this facility use dose modulation, iterative reconstruction, and/or weight based dosing when appropriate to reduce radiation dose to as low as reasonably achievable. Technical Comments: GFR (mL/min/1/73m2) na Contrast: Isovue 300 Contrast amount in ml's: 19.00 Ordering Provider: Zen Rdz FINAL REPORT Dictated: 09/24/2024 3:09 pm Chava Robert DO Signed (Electronic Signature): 09/24/2024 3:09 pm Signed by: Chava Robert DO Transcribed by: SALVADOR Technologist: FELIBERTO TRUJILLO HealthcareRadiology Study observation (narrative)[facility] UPPER EXTREMITY W/ CONTRAST LEFTOrdered By: Radiologist Radiology on 77-48-4978NNZV [employer] Work Phone: ct Upper Extremity w/ Contrast Lefton 74-84-3403VN Upper Extremity w/ Contrast LeftExam Date/Time: 09/24/2024 12:00 EDT Reason for Exam: Z96.612 Report IMPRESSION: A ROTATOR CUFF TEAR IS NOT IDENTIFIED. CONTRAST UNDERCUTTING THE ANTERIOR HALF OF THE GLENOID COMPONENT AND ALONG THE TIPS OF 2 OF THE SCREWS WITHIN THE GLENOID IS CONCERNING FOR LOOSENING OF THE GLENOID COMPONENT. EXAMINATION: CT Upper Extremity w/ Contrast Left HISTORY: Shoulder pain. Recent injury. COMPARISON: Left shoulder CT 04/30/2024 TECHNIQUE: Multiple contiguous axial images were obtained of the left shoulder after intra-articular injection of a 19 mL solution of Isovue-300 and saline . Multiplanar reformats were obtained. FINDINGS: Contrast is present deep to the anterior half of the glenoid component. Contrast is also present within the glenoid adjacent to the tip of the 2 inferior screws. No contrast within the rotator cuff or subacromial/subdeltoid bursa to suggest full-thickness rotator cuff tear. Shoulder girdle musculature appears within normal limits by CT. All CT scans at this facility use dose modulation, iterative reconstruction, and/or weight based dosing when appropriate to reduce radiation dose to as low as reasonably achievable. Technical Comments: GFR (mL/min/1/73m2) na Contrast: Isovue 300 Contrast amount in ml's: 19.00 Ordering Provider: Zen Rdz FINAL REPORT Dictated: 09/24/2024 3:09 pm Chava Robert DO Signed (Electronic Signature): 09/24/2024 3:09 pm Signed by: Chava Robert DO Transcribed by: SALVADOR Technologist: CASSANDRAFisher-Titus Medical Center CBC W/ AUTO DIFFon 22-51-5329Rxtofyhok (Bld) [#/Vol]0 10*3/uLCEDAR CITY HOSPITAL HealthcareEOS ABSOLUTE0.1NOMS HealthcareHemoglobin (Bld) [Mass/Vol]13 g/dLCedar County Memorial Hospital Interpretation and review of laboratory resultsAbnormalNOCT HealthcareLYMPH ABSOLUTE0.8LowNOMS HealthcareMONO ABSOLUTE0.5NOMS HealthcareNEUTRO ABSOLUTE5.3 [facility]OMS HealthcarePlatelet mean volume (Bld) [Entitic vol]7 fL6.4 - 10.8 fLCEDAR CITY HOSPITAL HealthcarePlatelets (Bld) [#/Vol]389 10*3/uLNOCT HealthcareRBC (Bld) [#/Vol]5.2 10*6/uLNOCT HealthcareWBC (Bld) [#/Vol]6.8 10*3/uLNOCT HealthcareOriginal Ordering Provider: DO Zen RdzINISCASTLEVIEW HOS[facility]ITAL HealthcareHEMATOLOGYOrdered By: SYSTEM SYSTEM on 73-40-0079Ousbpqrps/100 WBC (Bld)0.7 %Normal0.0 - 2.0 %Remisol HemeBasophils/Leukocytes Auto (Bld) [Pure # fraction]0.0 E9/LNormal0.0 - 0.2 E9/LRemisol HemeEosinophils (Bld) [#/Vol]0.1 E9/LNormal0.0 - 0.5 E9/LRemisol HemeEosinophils/100 WBC (Bld)1.6 %Normal0.0 - 8.0 %Remisol HemeErythrocyte distribution width (RBC) [Ratio]16.1 %High10.9 - 14.2 %Remisol HemeHematocrit (Bld) [Volume fraction]39.8 %Norepa95.7 - 49.0 %Remisol HemeHemoglobin (Bld) [Mass/Vol]13.0 g/dLLow13.5 - 17.5 gm/dLRemisol HemeLymphocytes (Bld) [#/Vol]0.8 E9/LLow1.0 - 4.0 E9/LRemisol HemeLymphocytes/100 WBC (Bld)12.3 %Low14.0 - 50.0 % Remisol HemeMCH (RBC) [Entitic mass]24.9 pgLow27.0 - 34.0 pgRemisol HemeMCHC (RBC) [Mass/Vol]32.7 g/tHTpluzr47.4 - 36.0 gm/dLRemisol HemeMCV (RBC) [Entitic vol]76.2 fLLow80.0 - 100.0 fLRemisol HemeMonocytes (Bld) [#/Vol]0.5 E9/LNormal 0.2 - 1.0 E9/LRemisol HemeMonocytes/100 WBC (Bld)7.8 %Normal4.0 - 14.0 %Remisol HemeNeutrophils (Bld) [#/Vol]5.3 E9/LNormal2.0 - 7.5 E9/LRemisol Heme Neutrophils/100 WBC (Bld)77.6 %High36.0 - 75.0 %Remisol HemePlatelet mean volume (Bld) [Entitic vol]7.0 fLNormal6.4 - 10.8 fLRemisol HemePlatelets (Bld) [#/Vol] 389.0 E9/EAccbhh956.0 - 500.0 E9/LRemisol HemeRBC (Bld) [#/Vol]5.2 E12/LNormal 4.3 - 5.9 E12/LRemisol HemeWBC corrected for nucl RBC Auto (Bld) [#/Vol]6.8 E9/L Normal4.0 - 11.0 E9/LRemisol HemeHEMATOLOGYOrdered By: Digna Wagoner on 09-24-2024 ESR (Bld) [Velocity]11 mm/hNormal0 - 19 mm/hrFTMC HemeAutoSSLab Miscellaneous-LC on 68-49-0910Hrhc [id number] Interpretation CodeCleveland Clinic Hillcrest HospitalComment on above:Performed By: #### [id number] #### [facility] [address], [place] [address]Pbkv NameInterleukin-6Invalid Interpretation CodeCleveland Clinic Hillcrest HospitalComment on above:Performed By: #### [id number] #### [facility] [address] [place] [address]82[address]Uhhsgpkaf Laboratory TestingOrdered By: Catalina Holley on 53-86-4423Tfcvci [Moles/Vol]117710 mmol/LInvalid Interpretation [facility] SendOutsSSTest NameInterleukin-6Invalid Interpretation [facility] SendOutsSSSed Rate Automatedon 73-11-1750Lyd Rate Hkzcetbef69 mm/hrNormal0-19C[facility] Hillcrest HospitalComment on above:Performed By: #### [id number] #### [facility] [address] [place] [address] 15066FZ INJ SHOULDER ARTHROGRAM LEFTon 09-24-2024 Exam Date/Time: 09/24/2024 12:10 EDT Reason for Exam: Z96.612 Report IMPRESSION: LEFT SHOULDER ARTHROGRAM FOR CT, WHICH WILL BE REPORTED SEPARATELY. EXAM: XR Inj Shoulder Arthrogram Left DATE: 09/24/2024 11:07 AM CLINICAL HISTORY: Z96.612. COMPARISON: Left shoulder radiographs 05/22/2024. PROCEDURE: Informed consent was obtained. Sterile technique, local lidocaine anesthesia and fluoroscopic guidance was used to place a 22-gauge spinal needle into the left joint from an anterolateral oblique approach. Approximately 0.5 mL of Isovue-300 contrast was instilled to confirm intra-articular positioning. Approximately 7.5 mL of saline containing 0.5% of Vueway gadolinium contrast was then injected. The patient experienced increased pain at the end of the injection without evidence of other immediate complication, and was taken to the CT suite. He was subsequently discharged shortly following the CT in stable condition. Technical Comments: Contrast: Isovue 300 Contrast amount in ml's: 19.00 Ka,r in mGy = 7.10 DAP = 97.53 ( Gy*m ) Ordering Provider: Zen Rdz FINAL REPORT Dictated: 09/24/2024 12:36 pm Jignesh Rosado MD Signed (Electronic Signature): 09/24/2024 12:36 pm Signed by: Jignesh Rosado MD Transcribed by: SALVADOR Technologist: LYNNLupilloiology, Radiologist, MD - 09/24/2024 Exam Date/Time: 09/24/2024 12:10 EDT Reason for Exam: Z96.612 Report IMPRESSION: LEFT SHOULDER ARTHROGRAM FOR CT, WHICH WILL BE REPORTED SEPARATELY. EXAM: XR Inj Shoulder Arthrogram Left DATE: 09/24/2024 11:07 AM CLINICAL HISTORY: Z96.612. COMPARISON: Left shoulder radiographs 05/22/2024. PROCEDURE: Informed consent was obtained. Sterile technique, local lidocaine anesthesia and fluoroscopic guidance was used to place a 22-gauge spinal needle into the left joint from an anterolateral oblique approach. Approximately 0.5 mL of Isovue-300 contrast was instilled to confirm intra-articular positioning. Approximately 7.5 mL of saline containing 0.5% of Vueway gadolinium contrast was then injected. The patient experienced increased pain at the end of the injection without evidence of other immediate complication, and was taken to the CT suite. He was subsequently discharged shortly following the CT in stable condition. Technical Comments: Contrast: Isovue 300 Contrast amount in ml's: 19.00 Ka,r in mGy = 7.10 DAP = 97.53 ( Gy*m ) Ordering Provider: Zen Rdz FINAL REPORT Dictated: 09/24/2024 12:36 pm Jignesh Rosado MD Signed (Electronic Signature): 09/24/2024 12:36 pm Signed by: Jignesh Rosado MD Transcribed by: SALVADOR Technologist: LIANNA [facility] HospitalRadiology Study observation (narrative)[facility] HospitalXR INJ SHOULDER ARTHROGRAM LEFTOrdered By: Radiologist Radiology on 46-33-9178WNIMWashington County Memorial Hospital Work Phone: XR Inj Shoulder Arthrogram Lefton 22-87-8404HD Inj Shoulder Arthrogram LeftExam Date/Time: 09/24/2024 12:10 EDT Reason for Exam: Z96.612 Report IMPRESSION: LEFT SHOULDER ARTHROGRAM FOR CT, WHICH WILL BE REPORTED SEPARATELY. EXAM: XR Inj Shoulder Arthrogram Left DATE: 09/24/2024 11:07 AM CLINICAL HISTORY: Z96.612. COMPARISON: Left shoulder radiographs 05/22/2024. PROCEDURE: Informed consent was obtained. Sterile technique, local lidocaine anesthesia and fluoroscopic guidance was used to place a 22-gauge spinal needle into the left joint from an anterolateral oblique approach. Approximately 0.5 mL of Isovue-300 contrast was instilled to confirm intra-articular positioning. Approximately 7.5 mL of saline containing 0.5% of Vueway gadolinium contrast was then injected. The patient experienced increased pain at the end of the injection without evidence of other immediate complication, and was taken to the CT suite. He was subsequently discharged shortly following the CT in stable condition. Technical Comments: Contrast: Isovue 300 Contrast amount in ml's: 19.00 Ka,r in mGy = 7.10 DAP = 97.53 (\XB5\Gy*m\XB2\) Ordering Provider: Zen Rdz FINAL REPORT Dictated: 09/24/2024 12:36 pm Jignesh Rosado MD Signed (Electronic Signature): 09/24/2024 12:36 pm Signed by: Jignesh Rosado MD Transcribed by: SALVADOR Technologist: [facility]XR Shoulder - left 2 Viewson 02-25-4143Tukhbdj Result: AP Grashey and scapular Y-view of the left shoulder taken in the office today does not demonstrate any obvious fracture or displacement of the total shoulder prosthesis essentially unchanged from previous imaging done recently with Dr. Zen RdzFormerly [facility] HospitalRadiology Study observation (narrative)[facility] HospitalXR Shoulder - left 2 Viewson 09-07-2024 Imaging Result: Two views, AP/axillary left shoulder(s) taken today and saved to the permanent medical record are reviewed. Slight anterior subluxation of humeral head on axillary view. Grashey appears unchanged compared to previous. No signs of prosthetic wear or loosening. No periprosthetic fractures.[facility] HospitalXR Shoulder - left 2 Viewson 09-05-2024 Radiology Study observation (narrative)[facility] HospitalEstimated glomerular filtration rate (GFR) non- Americanon 10-70-3177WEV/1.73 sq M.predicted among non-blacks MDRD (S/P/Bld) [Vol rate/Area]Estimated glomerular filtration rate (GFR) non->=60 mL/min/1.73m 2FMarietta Memorial HospitalGFR/1.73 sq M.predicted among non-blacks MDRD (S/P/Bld) [Vol rate/Area] mL/min/{1.73_m2}>=60 mL/min/1.73m 2FMarietta Memorial HospitalGlobulin Calc (S) [Mass/Vol]on 66-19-8283Gcxintqw (S) [Mass/Vol]Serum globulin measurement by calculation (mass/volume)[facility] Globulin (S) [Mass/Vol]3.4 g/dLFayette County Memorial HospitalLaboratory - Chemistry and Chemistry - challengeon 66-40-2542Rjlbbqs [Mass/Vol]4.3 g/dL 3.4-5.0[facility] HospitalALP [Catalytic activity/Vol]60 U/L46-116 [facility] HospitalALT [Catalytic activity/Vol]40 U/L16-63 [facility] HospitalAST [Catalytic activity/Vol]23 U/L15-37 [facility] HospitalBilirubin [Mass/Vol]1.1 mg/dLHigh0.2-1.0 [facility] HospitalCalcium [Mass/Vol]9.2 mg/dL8.5-10.1FMarietta Memorial HospitalChloride [Moles/Vol]101 mmol/Y73-702VojoejydoFayette County Memorial HospitalCO2 [Moles/Vol]30.6 mmol/L21.0-32.0[facility] HospitalCreatinine [Mass/Vol]0.92 mg/dL0.70-1.30[facility] GFR/1.73 sq M.predicted MDRD (S/P/Bld) [Vol rate/Area]mL/min/{1.73_m2}>=60 mL/min/1.73m 2FMarietta Memorial HospitalGlucose [Mass/Vol]159 mg/dLHigh 74-106F[facility] HospitalPotassium [Moles/Vol]3.8 mmol/L3.5-5.1 [facility] HospitalProtein [Mass/Vol]7.7 g/dL6.4-8.2FOhioHealth Van Wert Hospitalodium [Moles/Vol]138 mmol/M407-043BzvloikiqFayette County Memorial HospitalUrea nitrogen [Mass/Vol]18.0 mg/dL7.0-18.0[facility] HospitalUrea nitrogen/Creatinine [Mass ratio]19.6 mg/mgFayette County Memorial HospitalNo Panel Informationon 09-21-2367Qnjgbyyp Specific Antigen Screen 0.91 ng/mL<=4.00St. [facility] Hospitalerum or plasma albumin/globulin mass ratioon 86-24-4192Rgcqzeg/Globulin [Mass ratio]Serum or plasma albumin/globulin mass ratioFayette County Memorial Hospital Albumin/Globulin [Mass ratio]1.3 {ratio}[facility] Hospitalerum or plasma anion gap determinationon 37-84-3094Ombaw gap [Moles/Vol]Serum or plasma anion gap determinationFayette County Memorial HospitalAnion gap [Moles/Vol]10.2 mmol/LFMarietta Memorial HospitalXR Shoulder - left 2 Viewson 02-86-9163Uhqcuql Result: 1 views, AP, left shoulder(s) taken today and saved to the permanent medical record are reviewed. Prosthesis is unchanged in position and alignment. No signs of prosthetic wear or loosening. No periprosthetic fractures.[facility] HealthcareRadiology Study observation (narrative) [facility] HospitalXR Shoulder - left 2 Viewson 11-24-3234Txlhdpe Result: Two views, AP/outlet left shoulder(s) taken today and saved to the permanent medical record are reviewed. Prosthesis is unchanged in position and alignment. No signs of prosthetic wear or loosening. No periprosthetic fractures.[facility] HealthcareRadiology Study observation (narrative) [facility] HospitalSurgical Pathology Reporton 30-12-1782Kdoedshu Pathology Report [facility] [address] [place] [address]- Surgical Pathology Report Collected Date/Time: 05/22/2024 10:57 EST Pathologist: Yoni PHAM PhD, Wai Calvillo Received Date/Time: 05/22/2024 12:33 EST Kajal , Zen A Kajal MIJARES, Zen Daniel Mickie Surgical Pathology Report - 05/28/2024 11:16 EST - Auth (Verified) Final Diagnosis LEFT SHOULDER BONE AND SOFT TISSUE, ARTHROPLASTY: - BONE CARTILAGE WITH DEGENERATIVE CHANGES. - NORMOCELLULAR BONE MARROW WITH TRILINEAGE HEMATOPOIESIS. - BENIGN SYNOVIAL SOFT TISSUE. (Electronic Signature) Wai Vallejo MD PhD 05/28/2024 11:16 Clinical Information osteoarthritis Pre-Op Diagnosis: osteoarthritis Procedure: left total shoulder arthroplasty Post-Op Diagnosis: Advanced glenohumeral osteoarthrosis, left shoulder Specimen(s) Received left shoulder bone and soft tissue Gross Description Received in formalin labeled with patient name, number, and left shoulder bone and soft tissue is a humeral head measuring 5 x 4.5 x 1.5 cm. The articular surface is thin and rough, pitted, with osteophyte formation present. Cross-sectioning through the humeral head contains no discrete lesions. Also received in the container are multiple fragments of york/pink wrinkled rubbery tissue measuring in aggregate 3.5 x 2.5 x 1 cm. [place]arc[place] Planter portion is submitted in two cassettes: 1 - Soft tissue 2 - Bone after decalcification (DC) DC:MCA Microscopic Description Microscopic examination performed unless gross only specified. This report was transcribed using voice recognition technology and might contain unintended computerized clinical laboratory technologist errors.NormalCleveland Clinic Hillcrest HospitalComment on above:Performed By: #### [id number] #### [facility] [address] [place], [place] [address]Zzewcsdnhkgr 66-46-3619SagxbiznxdAzvaocruwl Patient: CHAVA VASQUEZ JR Age: 53 years Sex: Male : 1970 Associated Diagnoses: None Author: Art PHAM, Son Garcia Postoperative Information Postoperative disposition: Postoperative disposition: To PACU. Optimetrix number: Optimetrix number [id number]. Anesthetic utilized: General. Health Status Allergies: Allergic Reactions (Selected) No Known Allergies Physical Examination Vital Signs 05/22/2024 8:00 EST Heart Rate Monitored 87 bpm Systolic Blood Pressure 123 mmHg Diastolic Blood Pressure 79 mmHg Blood Pressure Location Left arm Mean Arterial Pressure, Monitered 94 mmHg 05/22/2024 8:00 EST Heart Rate Monitored 88 bpm SpO2 97 % 05/22/2024 7:59 EST Respiratory Rate 16 br/min 05/22/2024 7:59 EST Temperature Axillary 36.4 DegC 05/22/2024 7:59 EST Systolic Blood Pressure 136 mmHg Diastolic Blood Pressure 74 mmHg Blood Pressure Location Right arm Mean Arterial Pressure, Monitered 95 mmHg Pain Assessment: Controlled. General: Awake, Alert, Appropriate. Respiratory: Adequate air exchange. Cardiovascular: Stable, Normal peripheral perfusion. Neurological: Normal sensory function, Normal motor function. Assessment Anesthetic outcome No anesthetic complications noted. Adequate pain relief. able to void without difficulty, able to ambulate with assist, tolerating PO intake, no N/V. Review / Management Condition: Stable. Plan Transfer/Discharge: Transfer/Discharge Discharge when meets criteria ( From PACU to floor ). Exhibited confusion, weakness, mydriasis - attributed to serotonin syndrome. Observed in PACU for extended period of time yet remained too weak to consider sending home. Admitted to inpatient bed forobservation overnight. Discussed with patient and family.NormalCleveland Clinic Hillcrest HospitalBMPon 98-01-4818Yilpb gap [Moles/Vol]10 mmol/LNormal6-16[facility] Hillcrest HospitalComment on above: Performed By: #### [id number] #### [facility] [address], [place] [address]Avofblt [Mass/Vol]7.5 mg/dLLow8.9-11.1FProMedica Fostoria Community HospitalComment on above:Performed By: #### [id number] #### [facility] [address], [place] [address]Epczuzle [Moles/Vol]108 mmol/OQuslfc179-517RgjnsdCleveland Clinic Hillcrest HospitalComment on above:Performed By: #### [id number] #### [facility] [address], [place] [address]VA5 [Moles/Vol]24 mmol/QZxtebv36-71UlwocdCleveland Clinic Hillcrest Hospital Comment on above:Performed By: #### [id number] #### [facility] [address], [place] [address]Asvairhdgc [Mass/Vol]0.7 mg/dLNormal0.5-1.3FProMedica Fostoria Community HospitalComment on above:Performed By: #### [id number] #### [facility] [address], [place] [address]Obnngct [Mass/Vol]178 mg/vCVubhsg34-246TrivwmCleveland Clinic Hillcrest HospitalComment on above:Performed By: #### [id number] #### [facility] [address], [place] [address]Dyycxkwrn [Moles/Vol]3.5 mmol/LNormal3.5-5.3FProMedica Fostoria Community HospitalComment on above:Performed By: #### [id number] #### [facility] [address], [place] [address]Ckatqm [Moles/Vol]138 mmol/CKwpjsu763-503ZgxbpyCleveland Clinic Hillcrest HospitalComment on above:Performed By: #### [id number] #### [facility] [address], [place] [address]Qbyh nitrogen [Mass/Vol]16 mg/dLNormal5-21[facility] Hillcrest HospitalComment on above:Performed By: #### [id number] #### [facility] [address], [place] [address]Btdl nitrogen/Creatinine [Mass ratio]23 No CmzupGduq53-35ImfdlwCleveland Clinic Hillcrest HospitalComment on above:Performed By: #### [id number] #### [facility] [address], [place] [address]WSUne 88-99-8326Hrfd nitrogen [Mass/Vol]16 mg/dLNormal5-21 [facility] HospitalComment on above:Performed By: #### [id number] #### [facility] [address], [place] [address]BSQ w/ Auto Diffon 30-61-4087Eselqrvgw/100 WBC (Bld)0.3 %Normal 0.0-2.0NOMS HealthcareComment on above:Performed By: #### [id number] #### [facility] [address] [place] [address]Btzspjjqk/Leukocytes Auto (Bld) [Pure # fraction]0.0 E9/LNormal 0.0-0.2FProMedica Fostoria Community HospitalComment on above:Performed By: #### [id number] #### [facility] [address] [place] [address]Bbhakmitmhk (Bld) [#/Vol]0.0 E9/LNormal0.0-0.5FProMedica Fostoria Community HospitalComment on above:Performed By: #### [id number] #### [facility] [address] [place] [address]Usbznyozrpw/100 WBC (Bld)0.4 %Normal0.0-8.0[facility] Hillcrest HospitalComment on above:Performed By: #### [id number] #### [facility] [address] [place] [address]Zipzjpgodnm distribution width (RBC) [Ratio]15.7 %High10.9-14.2 NOMS HealthcareComment on above:Performed By: #### [id number] #### [facility] [address] [place] [address]56[address]Itizymqtxx (Bld) [Volume fraction]33.6 %Low37.7-49.0NOMS HealthcareComment on above:Performed By: #### [id number] #### [facility] [address] [place] [address] 22[address]Owunbbzjlj (Bld) [Mass/Vol]11.2 g/dLLow13.5-17.5FProMedica Fostoria Community HospitalComment on above:Performed By: #### [id number] #### [facility] [address] [place] [address]Cauzkpmiuqt (Bld) [#/Vol]0.8 E9/LLow1.0-4.0[facility]crest HospitalComment on above:Performed By: #### [id number] #### [facility] [address] [place] [address]Dvseclsxtyh/100 WBC (Bld)8.1 %Low14.0-50.0[facility] Comment on above:Performed By: #### [id number] #### [facility] [address] [place] [address] 617[address]LHO (RBC) [Entitic mass]26.5 pgLow27.0-34.0[facility]st HospitalComment on above:Performed By: #### [id number] #### [facility] [address] [place] [address]NRUL (RBC) [Mass/Vol]33.5 g/aZKjehcf08.4-36.0[facility] HospitalComment on above:Performed By: #### [id number] #### [facility] [address] [place] [address] 632[address]LZG (RBC) [Entitic vol]79.2 fLLow80.0-100.0[facility]st HospitalComment on above:Performed By: #### [id number] #### [facility] [address] [place] [address] 12[address]Umvpkuxvi (Bld) [#/Vol]0.9 E9/LNormal0.2-1.0[facility]st HospitalComment on above:Performed By: #### [id number] #### [facility] [address] [place] [address] 742[address]Ucogylhsiau (Bld) [#/Vol]7.9 E9/LHigh2.0-7.5FProMedica Fostoria Community HospitalComment on above:Performed By: #### [id number] #### [facility] [address] [place] [address] 26[address]Bmkabgeefxn/100 WBC (Bld)81.7 %High36.0-75.0[facility] Comment on above:Performed By: #### [id number] #### [facility] [address], [place] [address]Ddpgzdfv552.0 E9/XEiwusq354.0-500.0[facility] Comment on above:Performed By: #### [id number] #### [facility] [address], [place] [address]Yhttmiyf mean volume (Bld) [Entitic vol]7.1 fLNormal6.4-10.8 [facility] HealthcareComment on above:Performed By: #### [id number] #### [facility] [address], [place] [address]JCK (Bld) [#/Vol]4.2 E12/LLow4.3-5.9[facility] Comment on above:Performed By: #### [id number] #### [facility] [address] [place] [address]BID corrected for nucl RBC Auto (Bld) [#/Vol]9.7 E9/LNormal 4.0-11.0[facility]st HospitalComment on above:Performed By: #### [id number] #### [facility] [address], [place] [address]CXWLGRWNABbruuuv By: Lab Colette on 01-12-7531Lqfiqjg [Mass/Vol]161 mg/bNHior18 - 99 mg/dLMERCY HOSPITAL [facility] [place] SubsectionPOC UsernameWALTON, CHRISTINEInvalid Interpretation CodeMERCY HOSPITAL [facility] [place] SubsectionSodium [Moles/Vol] [id number] mmol/LInvalid Interpretation CodeMER[facility]OS[facility] [place] SubsectionSodium [Moles/Vol]111073442 mmol/LInvalid Interpretation CodeMERCY HOSPITAL [facility] [place] SubsectionGlucose [Mass/Vol]168 mg/vTGoaj99 - 99 mg/dLFT POC SubsectionPOC UsernamjuneRYInvalid Interpretation CodeMERCY HOS[facility]ITAL [facility] [place] SubsectionSodium [Moles/Vol] [id number] mmol/LInvalid Interpretation CodeMER[facility]OS[facility] [place] SubsectionSodium [Moles/Vol]435941847 mmol/LInvalid Interpretation CodeMERCY HOS[facility] [place] Subsection CHEMISTRYOrdered By: SYSTEM SYSTEM on 90-99-4421Sgncbqe [Mass/Vol]7.5 mg/dLLow 8.9 - 11.1 mg/dLRemisol ChemGlucose [Mass/Vol]178 mg/uWKcmnig83 - 199 mg/dL Remisol ChemTSH Qn0.51 m[IU]/LNormal0.34 - 5.60 mcIU/mLRemisol ChemUrea nitrogen/Creatinine [Mass ratio]23 mg/gcIsbo13 - 20Remisol ChemCapillary Glucose POCon 97-39-3380Mjgsoma [Mass/Vol]161 mg/lEIigi07-54DgletvCleveland Clinic Hillcrest Hospital Comment on above:Performed By: #### [id number] ####[facility] [address] [place], [place] [address]Wmgwpzt [Mass/Vol]168 mg/xDEnfn48-22 [facility] HospitalComment on above:Performed By: #### [id number] #### [facility] [address], [place] [address]Cqyznvgtcgvw 32-26-8947Kdmgocyjjj [Mass/Vol]0.7 mg/dLNormal 0.5-1.3FProMedica Fostoria Community HospitalComment on above:Performed By: #### [id number] #### [facility] [address], [place] [address]PHHK CBC W/ AUTO DIFFon [id number]/100 LEUKOCYTES:NFR:PT:BLD:QN:AUTOMATED COUNT0.4 %0.0 - 8.0 %[facility] EOSINOPHILS:NCNC:PT:BLD:QN:0[facility] BASOPHILS/LEUKOCYTES:NFR.DF:PT:BLD:QN:AUTOMATED [id number]. Luke's Hospital ERYTHROCYTE MEAN CORPUSCULAR HEMOGLOBIN CONCENTRATION:MCNC:PT:RBC:QN33.5[facility] ERYTHROCYTE MEAN CORPUSCULAR HEMOGLOBIN:ENTMASS:PT:RBC:QN26.5 pg Low27.0 - 34.0 pgSt. [facility] Hospital ERYTHROCYTE MEAN CORPUSCULAR VOLUME:ENTVOL:PT:RBC:QN:AUTOMATED COUNT79.2 fLLow80.0 - 100.0 [facility] ERYTHROCYTES:NCNC:PT:BLD:QN:AUTOMATED COUNT4.2LowNEx[facility] HEMOGLOBIN:MCNC:PT:BLD:QN:11.2LowNExcelsior Springs Medical Center LEUKOCYTES9.7NOMiss[facility] MONOCYTES:NCNC:PT:BLD:QN:AUTOMATED COUNT0.9[facility]OMiss[facility] NEUTROPHILS:NCNC:PT:BLD:QN:AUTOMATED COUNT7.9HighWashington County Memorial HospitalInterpretation and review of laboratory resultsAbnormalWashington [facility] Hospital LYMPHOCYTES:NCNC:PT:BLD:QN:0.8LowCEDAR CITY H[facility] HealthcarePlatelets (Bld) [#/Vol]247 10*3/uLWashington County Memorial HospitalOriginal Ordering Provider: DO Zen MosesRMC STRINGFELLOW MEMORIAL HOSPITALBACILIOMcLeod Regional Medical CenterHEMATOLOGYOrdered By: SYSTEM SYSTEM on 95-86-4224Umjxxwldl/100 WBC (Bld)0.3 %Normal0.0 - 2.0 %Remisol HemeBasophils/Leukocytes Auto (Bld) [Pure # fraction]0.0 E9/LNormal0.0 - 0.2 E9/LRemisol HemeEosinophils (Bld) [#/Vol]0.0 E9/LNormal0.0 - 0.5 E9/LRemisol HemeEosinophils/100 WBC (Bld)0.4 %Normal0.0 - 8.0 %Remisol HemeErythrocyte distribution width (RBC) [Ratio]15.7 %High10.9 - 14.2 %Remisol HemeHematocrit (Bld) [Volume fraction]33.6 %Low37.7 - 49.0 % Remisol HemeHemoglobin (Bld) [Mass/Vol]11.2 g/dLLow13.5 - 17.5 gm/dLRemisol Heme Lymphocytes (Bld) [#/Vol]0.8 E9/LLow1.0 - 4.0 E9/LRemisol HemeLymphocytes/100 WBC (Bld)8.1 %Low14.0 - 50.0 %Remisol HemeMCH (RBC) [Entitic mass]26.5 pgLow27.0 - 34.0 pgRemisol HemeMCHC (RBC) [Mass/Vol]33.5 g/aKWwghhj32.4 - 36.0 gm/dL Remisol HemeMCV (RBC) [Entitic vol]79.2 fLLow80.0 - 100.0 fLRemisol Heme Monocytes (Bld) [#/Vol]0.9 E9/LNormal0.2 - 1.0 E9/LRemisol HemeMonocytes/100 WBC (Bld)9.5 %Normal4.0 - 14.0 %Remisol HemeNeutrophils (Bld) [#/Vol]7.9 E9/LHigh 2.0 - 7.5 E9/LRemisol HemeNeutrophils/100 WBC (Bld)81.7 %High36.0 - 75.0 % Remisol JkhoAdsfysca079.0 E9/JMawlbp643.0 - 500.0 E9/LRemisol HemePlatelet mean volume (Bld) [Entitic vol]7.1 fLNormal6.4 - 10.8 fLRemisol HemeRBC (Bld) [#/Vol] 4.2 E12/LLow4.3 - 5.9 E12/LRemisol HemeWBC corrected for nucl RBC Auto (Bld) [#/Vol]9.7 E9/LNormal4.0 - 11.0 E9/LRemisol HemeInpatient Clinical Summaryon [id number] Clinical SummaryInpatient Clinical Summary [place] [address] Clinical Summary Person Information: Name: CHAVA VASQUEZ JR Age: 53 Years : 1970 Sex: Male PCP: MAX TUCKER DO Marital Status: Race: White Ethnicity: Non- or Language: Wolof Visit Id: Visit Reason: OA LEFT SHOULDER Speciality: Acuity: Enc Type: Outpatient in a Bed Med Service: Surgery Arrival: 05/22/2024 07:46:27 Discharge: Dispo Type: Address: [address] [place] [address] [place] [id number] Provider Notes: Diagnosis: 1:Drug-induced myopathy; 4:Controlled type 2 diabetes mellitus with hyperglycemia, without long-term current use of insulin; 5:SARINA (generalized anxiety disorder); 6:Hyperlipidemia type II; 7:Blepharitis Problems Active Tubular adenoma of colon Abdominal pain, LLQ Abdominal pain, periumbilical Abdominal pain, acute BMI 27.0-27.9,adult Rectal bleeding Controlled diabetes mellitus with diabetic polyneuropathy Controlled type 2 diabetes mellitus with hyperglycemia, without long-term current use of insulin Hyperlipidemia type II GERD with esophagitis Erectile dysfunction due to arterial insufficiency SARINA (generalized anxiety disorder) Smoking Status: Functional Status: Sensory Deficits: History of Falls: Mobility Assistance Prior to Admission: ADLs: Independent Current Level of Assistance for Self-Care/Mobility: Cognitive Status: Allergies No Known Allergies Measurements: Height: 177.8 cm Weight: 83.5 kg Blood Pressure: 128 mmHg / 82 mmHg BMI: 27.01 kg/m2 Procedures Arthroplasty of left shoulder (05/22/2024) Immunizations No Immunizations Documented This Visit Final Med List: acetaminophen-oxycodone (Percocet 5 mg-325 mg oral tablet) 1-2 tab(s) Oral q4hr. Refills: 0. alprazolam (alprazolam 0.25 mg Tab) 1 Tablets By Mouth every 8 hours as needed anxiety. atorvastatin (atorvastatin 80 mg Tab) 1 Tablets By Mouth every day. bacitracin/HC/neomycin/polymyxin B ophthalmic (bacitracin/HC/neomycin/polymyxin B Opth Oint) 1 Application Ophthalmic 3 times a day. Refills: 0. celecoxib (CeleBREX 200 mg Cap) 1 Capsules By Mouth every day. start after finishing ketorolac. Refills: 0. cephalexin (Keflex 500 mg Cap) 1 Capsules By Mouth every 8 hours for 7 Days. Refills: 0. citalopram (CeleXA 20 mg Tab) 1 Tablets By Mouth every day. docusate (Colace 100 mg Cap) 1 Capsules By Mouth 2 times a day as needed for constipation. Refills:0. docusate (Colace 100 mg Cap) 1 Capsules By Mouth 2 times a day as needed for constipation. Refills:0. gabapentin (gabapentin 300 mg Cap) 1 Capsules By Mouth 3 times a day for 14 Days. Refills: 0. glimepiride (glimepiride 1 mg Tab) 1.5 Tablets By Mouth every day. ketorolac (ketorolac 10 mg Tab) 1 Tablets By Mouth every 8 hours for 3 Days. Refills: 0. metformin-sitagliptin (Janumet 50 mg/1000 mg oral tablet) 1 Tablets By Mouth 2 times a day. omeprazole (omeprazole 40 mg Cap-DR) 1 Capsules By Mouth every day. sildenafil (sildenafil 100 mg Tab) 1 Tablets By Mouth every day as needed erectile dysfunction. Care Team Members: Attending Physician: Zen Rdz DO Consulting Physician: Joe Denton DO Referring Physician: Zen Rdz DO Follow up: With: Address: When: MAX TUCKER [address] [place] [address] Business (1) Within 7 to 10 days, only if needed Comments: Call for followup appointment With: Address: When: Zen Rdz [address] [place] [address] [place], [place] [id number] Business (1) 06/04/2024 11:15 AM Comments: Appointment has already been scheduled. Call for any problems. Patient Education Information: Post Op Patient Instructions - FT (Custom) (CUSTOM); Shoulder Cryocuff Patient Instructions - FT (CUSTOM); Soumya Rdz - Shoulder Replacement (Custom)[facility] CampusInpatient Patient Summaryon [id number] Patient SummaryInpatient Patient Summary CHAVA VASQUEZ JR :1970 Visit Date:05/22/2024 Inpatient Discharge Instructions Your Care Team Admitting Physician - Zen Rdz DO Consulting Physician - Joe Denton DO Referring Physician - Zen Rdz DO Reason for Your Visit OA LEFT SHOULDER Your Diagnosis Drug-induced myopathy Serotonin syndrome History of left shoulder replacement Controlled type 2 diabetes mellitus with hyperglycemia, without long-term current use of insulin SARINA (generalized anxiety disorder) Hyperlipidemia type II Blepharitis Tests Performed CBC w/ Auto Diff -- Results Pending -- XR Shoulder Complete Left Please visit your patient portal for your results or contact your primary care physician. This Is Your Medications List acetaminophen-oxycodone (Percocet 5 mg-325 mg oral tablet) alprazolam (alprazolam 0.25 mg Tab) atorvastatin (atorvastatin 80 mg Tab) bacitracin/HC/neomycin/polymyxin B ophthalmic (bacitracin/HC/neomycin/polymyxin B Opth Oint) celecoxib (CeleBREX 200 mg Cap) cephalexin (Keflex 500 mg Cap) citalopram (CeleXA 20 mg Tab) docusate (Colace 100 mg Cap) docusate (Colace 100 mg Cap) gabapentin (gabapentin 300 mg Cap) glimepiride (glimepiride 1 mg Tab) ketorolac (ketorolac 10 mg Tab) metformin-sitagliptin (Janumet 50 mg/1000 mg oral tablet) omeprazole (omeprazole 40 mg Cap-DR) sildenafil (sildenafil 100 mg Tab) [Image Removed: STOP]Stop taking these medications etodolac (etodolac 500 mg Tab) ibuprofen (ibuprofen 600 mg Tab) Procedure History Arthroplasty of left shoulder (05/22/2024), Arthroscopy of shoulder with biceps tenodesis (04/07/2023), EGD - Esophagogastroduodenoscopy (08/05/2020), Repair of umbilical hernia (11/25/2014), Appendectomy (2014), Colonoscopy (02/24/2014), EGD - Esophagogastroduodenoscopy (02/24/2014), Cholecystectomy (03/27/2007), Arthroscopy of knee, Arthroscopy of knee, Cervical spinal fusion. Discharge Vitals Temperature (Oral) 36.6 ???C Heart Rate (Monitored) 80 Respiratory Rate 17 Blood Pressure 128/82 Height 177.8 cm Weight 83.5 kg BMI 27.01 What to do next Instructions From Your Doctor Event Name Event Result Wound Care Do not remove dressing Pending Diagnostic Test Results None Discharge Instructions Please return to ER if symptoms change or worsen. Please take medications as prescribed. Please follow-up with orthopedic surgery and PCP as instructed. New Follow Up Appointments after Discharge Follow Up with Zen Rdz When: 06/04/2024 11:15 AM EDT Comments: Appointment has already been scheduled. Call for any problems. Where: [place] [address] Business (1) Follow Up with MAX TUCKER When: Within 7 to 10 days, only if needed Comments: Call for followup appointment Where: [address] [facility] [place] [address] Business (1) Medications What How Much When Instructions Next Dose New acetaminophen-oxycodone (Percocet 5 mg-325 mg oral tablet) See instructions 1-2 tab(s) Oral q4hr Pickup at [facility]/pharmacy #[id number] as needed New bacitracin/ HC/ neomycin/ polymyxin B ophthalmic (bacitracin/ HC/ neomycin/ polymyxin B Opth Oint) 1 Application Ophthalmic 3 times a day Pickup at [facility]/pharmacy #[id number] as prescribed Unchanged alprazolam (alprazolam 0.25 mg Tab) 1 Tablets By Mouth Every 8 hours as needed for anxiety as before Unchanged atorvastatin (atorvastatin 80 mg Tab) 1 Tablets By Mouth Every day 05/23/24 pm Unchanged celecoxib (CeleBREX 200 mg Cap) 1 Capsules By Mouth Every day start after finishing ketorolac Pickup at [facility]/pharmacy #[id number] as before/prescribed Unchanged cephalexin (Keflex 500 mg Cap) 1 Capsules By Mouth Every 8 hours Duration: 7 Days Pickup at [facility]/pharmacy #[id number] 05/23/24 4 pm Unchanged citalopram (CeleXA 20 mg Tab) 1 Tablets By Mouth Every day as before/prescribed Unchanged docusate (Colace 100 mg Cap) 1 Capsules By Mouth 2 times a day as needed for for constipation 05/23/24 pm Unchanged gabapentin (gabapentin 300 mg Cap) 1 Capsules By Mouth 3 times a day Duration: 14 Days Pickup at [facility]/pharmacy #6177 as before Unchanged glimepiride (glimepiride 1 mg Tab) 1.5 Tablets By Mouth Every day as before Unchanged ketorolac (ketorolac 10 mg Tab) 1 Tablets By Mouth Every 8 hours Duration: 3 Days Pickup at [facility]/pharmacy #6177 as prescribed Unchanged metformin-sitagliptin (Janumet 50 mg/ 1000 mg oral tablet) 1 Tablets By Mouth 2 times a day as before Unchanged omeprazole (omeprazole 40 mg Cap-DR) 1 Capsules By Mouth Every day 05/23/24 pm Unchanged sildenafil (sildenafil 100 mg Tab) 1 Tablets By Mouth Every day as needed for erectile dysfunction as before Pharmacy Information [facility]/pharmacy #[id number]: [address], [place] [phone] What How Much When Comments Stop Taking etodolac (etodolac 500 mg Tab) 1 Tablets By Mouth 2 times a day Stop Ta (more content not included)...[facility]In[facility] Patient SummaryInpatient Patient Summary [address] [address] Patient Discharge Instructions PERSON INFORMATION Name: CHAVA VASQUEZ JR Lexy Date of : 1970 Current Date: 05/23/2024 10:47:10 PHYSICIANS Admitting Physician: Zen Rdz DO Primary Care Physician: MAX TUCKER DO PCP Comment: Discharge Diagnosis: 1:Drug-induced myopathy; 4:Controlled type 2 diabetes mellitus with hyperglycemia, without long-term current use of insulin; 5:SARINA (generalized anxiety disorder); 6:Hyperlipidemia type II; 7:Blepharitis Condition at Discharge: Improved CHAVA VASQUEZ JR has been given the following list of follow-up instructions, prescriptions, andpatient education materials: PATIENT FOLLOW-UP INFORMATION Diet: Discharge Activity: Discharge Restrictions: Wound Care Instructions: Do not remove dressing Remove Your Dressing In Days Call Your Doctor For: IF UNABLE TO CONTACT YOUR PHYSICIAN AND YOU FEEL IT IS AN EMERGENCY, GO TO THE NEAREST EMERGENCY ROOM OR CALL 911 Home Treatment: Devices/Equipment: Special Services: Additional Instructions: Please return to ER if symptoms change or worsen. Please take medications as prescribed. Please follow-up with orthopedic surgery and PCP as instructed. Primary Care Physician to provide the following pending test results: None Follow up: With: Address: When: MAX TUCKER [address] [place] [id number] Business (1) Within 7 to 10 days, only if needed Comments: Call for followup appointment With: Address: When: Zen Rdz [address] [place], [place] [phone] [facility] () 06/04/2024 11:15 AM Comments: Appointment has already been scheduled. Call for any problems. In the event that this physician does not participate in your insurance network, please consult with your insurance company to find a nearby participating provider. Comment: KAREN Stewart JR, ROBERT E, have received the attached patient education materials/instructions and have verbalized understanding: Patient Signature Date Clinican/Nurse Signature Date HERE ARE THE MEDICATION CHANGES THAT OCCURRED DURING YOUR HOSPITAL STAY New Medications [facility]/pharmacy #[id number], [address], [place] [id number], [phone] acetaminophen-oxycodone (Percocet 5 mg-325 mg oral tablet) 1-2 tab(s) Oral q4hr. Refills: 0. Last Dose: Next Dose: bacitracin/HC/neomycin/polymyxin B ophthalmic (bacitracin/HC/neomycin/polymyxin B Opth Oint) 1 Application Ophthalmic 3 times a day. Refills: 0. Last Dose: Next Dose: Medications to Continue with No Changes [facility]/pharmacy #[id number], [address], [place] [phone], [phone] celecoxib (CeleBREX 200 mg Cap) 1 Capsules By Mouth every day. start after finishing ketorolac. Refills: 0. Last Dose: Next Dose: cephalexin (Keflex 500 mg Cap) 1 Capsules By Mouth every 8 hours for 7 Days. Refills: 0. Last Dose: Next Dose: docusate (Colace 100 mg Cap) 1 Capsules By Mouth 2 times a day as needed for constipation. Refills:0. Last Dose: Next Dose: gabapentin (gabapentin 300 mg Cap) 1 Capsules By Mouth 3 times a day for 14 Days. Refills: 0. Last Dose: Next Dose: ketorolac (ketorolac 10 mg Tab) 1 Tablets By Mouth every 8 hours for 3 Days. Refills: 0. Last Dose: Next Dose: Other Medications alprazolam (alprazolam 0.25 mg Tab) 1 Tablets By Mouth every 8 hours as needed anxiety. Last Dose: Next Dose: atorvastatin (atorvastatin 80 mg Tab) 1 Tablets By Mouth every day. Last Dose: Next Dose: citalopram (CeleXA 20 mg Tab) 1 Tablets By Mouth every day. Last Dose: Next Dose: docusate (Colace 100 mg Cap) 1 Capsules By Mouth 2 times a day as needed for constipation. Refills:0. Last Dose: Next Dose: glimepiride (glimepiride 1 mg Tab) 1.5 Tablets By Mouth every day. Last Dose: Next Dose: metformin-sitagliptin (Janumet 50 mg/1000 mg oral tablet) 1 Tablets By Mouth 2 times a day. Last Dose: Next Dose: omeprazole (omeprazole 40 mg Cap-DR) 1 Capsules By Mouth every day. Last Dose: Next Dose: sildenafil (sildenafil 100 mg Tab) 1 Tablets By Mouth every day as needed erectile dysfunction. Last Dose: Next Dose: No L (more content not included)...[facility] Interdisciplinary Note - Case Manageron [id number] Note - Case ManagerInterdisciplinary Note - Preservationist Patient is awake and alert in bed, previously rounded with Dr. Denton at bedside. Patient is aware of plan to DC home today, will transport, declines any concerns or DC needs. Per PT/OT no DC needs. . PCP verified and insurance information reviewed and DME discussed. Contact information provided and white board updated.[facility] HospitalComment on above:Result Comment: Electronically Signed By: Jennifer FREEMAN, Paola\.manuel\Date and Time Signed: 05/23/24 10:51 ESTLaboratory - Chemistry and Chemistry - challengeOrdered By: SYSTEM SYSTEM on 34-28-1872Aavgz gap [Moles/Vol]10 mmol/LNormal6 - 16 mEq/L Remisol ChemChloride [Moles/Vol]108 mmol/BXikrmq831 - 111 mmol/LRemisol ChemCO2 [Moles/Vol]24 mmol/NQlltkn04 - 31 mmol/LRemisol ChemCreatinine [Mass/Vol]0.7 mg/dLNormal0.5 - 1.3 mg/dLRemisol ChemPotassium [Moles/Vol]3.5 mmol/LNormal3.5 - 5.3 mmol/LRemisol ChemSodium [Moles/Vol]138 mmol/YOhyjcw149 - 145 mmol/LRemisol ChemUrea nitrogen [Mass/Vol]16 mg/dLNormal5 - 21 mg/dLRemisol ChemLyteson 85-13-8884Omsgp gap [Moles/Vol]10 mmol/LNormal6-16[facility] Comment on above:Performed By: #### [id number] #### [facility] [address], [place] [address]Rurpsysm [Moles/Vol]108 mmol/XYvofhm822-429NwjnljCleveland Clinic Hillcrest HospitalComment on above:Performed By: #### [id number] #### [facility] [address], [place] [address]LZ9 [Moles/Vol]24 mmol/OEpvlzr43-37WutxtyCleveland Clinic Hillcrest Hospital Comment on above:Performed By: #### [id number] #### [facility] [address], [place] [address]Ittahnzuu [Moles/Vol]3.5 mmol/LNormal3.5-5.3FProMedica Fostoria Community HospitalComment on above:Performed By: #### [id number] #### [facility] [address], [place] [address]Pghqgw [Moles/Vol]138 mmol/YVizazc799-725HkucxmCleveland Clinic Hillcrest HospitalComment on above:Performed By: #### [id number] #### [facility] [address], [place] [address]Vnjn OR Intraoperative Recordon [id number] OR Intraoperative RecordMain OR Intraoperative Record IntraOp Document Type FT Summary Primary Physician: Zen Rdz DO Finalized Date/Time: 05/23/24 14:10:45 Pt. Name: CHAVA VASQUEZ JR/Sex: 1970 Male Med Rec #: [id number] Physician: Zen Rdz DO Financial #: [id number] Pt. Type: O Room/Bed: 02/ Admit/Disch: 05/22/24 07:46:27 - 05/23/24 11:40:00 Institution: Case Times FT Entry 1 Patient Times In Room 05/22/24 10:01:00 Out Room 05/22/24 12:24:00 Procedure Times Start 05/22/24 10:39:00 Stop 05/22/24 12:15:00 Anesthesia Times Start 05/22/24 10:01:00 Stop 05/22/24 12:24:00 Block Timeout w05/22/24 09:11:00 Anesthesia Last Modified By: Roseline Lora 05/22/24 12:26:33 General Comments: BLOCK TIME OUT AT 0911 WITH AND NAZIA Campos RN ASSISTING. HEART RATE 86 BPM AND SPO2 99% ONROOM AIR. PATIENT TOLERATED WELL THEN TRANSPORTED BACK TO [facility] AND ATTACHED TO CONTINOUS MONITOR WHILE WAITINGTO GO BACK TO THE OR.LYDIA LÓPEZ. 05/23/24 Chart opened to review and send charges LRoth CSFA Case Attendance FT Entry 1 Entry 2 Entry 3 Case Attendee Roman AGUIRRE, Zen Bass DO, CST, Benjamin Role Performed YARD TRUCK DRIVER Surgeon - Primary PHOTOTYPESETTING EQUIPMENT MONITOR/SA Time In 05/22/24 10:01:00 05/22/24 10:30:00 05/22/24 10:01:00 Time Out 05/22/24 12:24:00 05/22/24 12:00:00 05/22/24 12:24:00 Procedure SHOULDER TOTAL SHOULDER TOTAL SHOULDER TOTAL ARTHROPLASTY(Left) ARTHROPLASTY(Left) ARTHROPLASTY(Left) Comments IS SUPERVISING Last Modified By: Roseline Lora Kelsie E Burgderfer, Kelsie E 05/22/24 12:26:35 05/22/24 12:26:35 05/22/24 12:26:35 Entry 4 Entry 5 Entry 6 Case Attendee Roseline Lora LPN, Jack Ray Role Performed Glueline Worker - Primary Scrub - Primary Staff - Other Time In 05/22/24 10:01:00 05/22/24 10:01:00 05/22/24 10:01:00 Time Out 05/22/24 12:24:00 05/22/24 11:57:00 05/22/24 12:24:00 Procedure SHOULDER TOTAL SHOULDER TOTAL SHOULDER TOTAL ARTHROPLASTY(Left) ARTHROPLASTY(Left) ARTHROPLASTY(Left) Comments 2ND SCRUB Last Modified By: Roselien Lora Kelsie E Burgderfer, Kelsie E 05/22/24 12:26:35 05/22/24 12:26:35 05/22/24 12:26:35 Entry 7 Case Attendee Faheem Lee Role Performed Staff - Other Time In 05/22/24 10:01:00 Time Out 05/22/24 11:57:00 Procedure SHOULDER TOTAL ARTHROPLASTY(Left) Comments 3RD SCRUB Last Modified By: Roseline Lora 05/22/24 12:26:35 General Comments: BRITTNEY CARRION AND LUCÍA MORALES, DANIEL ANDERSEN, IN ATTENDANCE.LYDIA LÓPEZ. Perioperative Protocols FT Pre-Care Text: Implements protective measures prior to operative or invasive procedure, confirms identity before the operative or invasive procedure, verifies operative procedure, surgical site, and laterality Entry 1 Procedure(s) SHOULDER TOTAL Patient Identity Birthday, ID Band ARTHROPLASTY(Left) Verified (select at Check, Patient least 2): Participation Consents / H and P Anesthesia Consent, Operative Site Present Verified H&P, Surgery/Procedure Marking Verified Consent, Transfusion Consent Surgical Site Yes Laterality Verified Yes Verified Procedure Verified Yes Correct Patient Yes Position Verified Availability Equipment, Implant, Prep Dry n/a Verified (If Medication Applicable) PreOp Antibiotic Yes Time Out Joe Owens CRNA, Given Participants Zen Rdz DO, Wilhelm CST, Guido Santana Kelsie E, Mc ANIMAL DAYCARE PROVIDER, Damaris Alberto, Jack Arellano Troike, Kendall R Time Out Complete 05/22/24 10:38:00 Outcomes Met? Yes Last Modified By: Roseline Lora 05/22/24 10:47:06 Post-Care Text: The patient is free from signs and symptoms of injury caused by extraneous objects Allergy Information FT Pre-Care Text: Verifies allergies Entry 1 Allergies Reviewed? Yes Allergies Reviewed Self/Patient With Outcomes Met? Yes Last Modified By: Roseline Lora 05/22/24 10:47:13 Post-Care Text: The patient received appropriate medication(s) safely administered during the perioperative period Surgical Procedures FT Entry 1 Procedure Description Procedure SHOULDER TOTAL Modifiers Left ARTHROPLASTY Surgeon Description LEFT SHOULDER TOTAL ARTHROPLASTY Primary Procedure Yes Primary Surgeon Zen Rdz DO Start 05/22/24 10:39:00 Stop 05/22/24 12:15:00 Anesthesia Type General Surgical Service Orthopedics Wound Class 1 - Clean Last Modified By: Roseline Lora 05/22/24 12:26:36 General Case Data FT Pre-Care Text: Classifies surgical wound, implements aseptic technique, initiates traffic control Entry 1 Case Information OR OR 7 FT Case Level Level 6 Wound Class 1 - Clean Specialty Orthopedics ASA Class 2 Preop Diagnosis OSTEOARTHRITIS LEFT Postop Same As Preop Yes SHOULDER Postop Diagnosis OSTEOARTHRITIS LEFT Outcomes Met? Yes SHOULDER Last Modified By: Roseline Lora 05/22/24 (more content not included)...NormalCleveland Clinic Hillcrest HospitalNo Panel InformationOrdered By: SYSTEM SYSTEM on 78-55-2141lLAE805 mL/min/1.73 i8Wtivet >=59mL/min/1.73 j1Fyuavxj ChemTSH With T4fr Reflexon 90-95-2026XEZ Qn0.51 m[IU]/LNormal0.34-5.60[facility] HospitalComment on above:Performed By: #### [id number] #### [facility] [address], [place] [address]fWSDqa 36-45-8091bCMD269 mL/min/1.73 h2Wgkyem>=59[facility] HospitalComment on above:Performed By: #### [id number] #### [facility] [address], [place] [address]zERQ472 mL/min/1.73 l2Oriocw>=59[facility] Comment on above:Performed By: #### [id number] #### [facility] [address], [place] [address]YAH/Rhon 03-24-9086PGF/RhPositiveInvalid Interpretation Code [facility] HospitalComment on above:Performed By: #### [id number] #### [facility] [address], [place] [address]NBE/Rh History Checkon 31-79-0282KDS/Rh History CheckVerified Hx Blood TypeNormalCleveland Clinic Hillcrest HospitalComment on above:Performed By: #### [id number] #### [facility] [address], [place] [address]GRAPmv [id number] Gel InterpNegativeNormalCleveland Clinic Hillcrest HospitalComment on above:Performed By: #### [id number] #### [facility] [address], [place] [address]JMHKN BANKOrdered By: Aurelia Lechuga on 68-05-7601DIT/Rh InterpPositiveInvalid Interpretation Code[facility] [place] SubsectionABSC Gel Interp Negative (05/22/24 8:13 AM)NormalMERCY HOSPITAL [facility] – [place] BB SubsectionBMPon [id number] gap [Moles/Vol]11 mmol/LNormal6-16[facility] HospitalComment on above:Performed By: #### [id number] #### [facility] [address], [place] [address]Urevfcc [Mass/Vol]7.5 mg/dLLow8.9-11.1FProMedica Fostoria Community HospitalComment on above:Performed By: #### [id number] #### [facility] [address], [place] [address]Zoygydnb [Moles/Vol]108 mmol/XYzckyd316-001FpukwsCleveland Clinic Hillcrest HospitalComment on above:Performed By: #### [id number] #### [facility] [address], [place] [address]GE2 [Moles/Vol]22 mmol/HIdmhge51-12GpiasgCleveland Clinic Hillcrest Hospital Comment on above:Performed By: #### [id number] #### [facility] [address], [place] [address]Cjcqwpvlza [Mass/Vol]0.8 mg/dLNormal0.5-1.3FProMedica Fostoria Community HospitalComment on above:Performed By: #### [id number] #### [facility] [address], [place] [address]Agbwjfy [Mass/Vol]180 mg/dELsfypu12-130YlzzreCleveland Clinic Hillcrest HospitalComment on above:Performed By: #### [id number] #### [facility] [address], [place] [address]Jfsegzvzx [Moles/Vol]3.6 mmol/LNormal3.5-5.3FProMedica Fostoria Community HospitalComment on above:Performed By: #### [id number] #### [facility] [address], [place] [address]Prbbta [Moles/Vol]137 mmol/EQytrdd471-291LtcneuCleveland Clinic Hillcrest HospitalComment on above:Performed By: #### [id number] #### [facility] [address], [place] [address]Kupp nitrogen [Mass/Vol]15 mg/dLNormal5-21[facility] HospitalComment on above:Performed By: #### [id number] #### [facility] [address], [place] [address]Gcec nitrogen/Creatinine [Mass ratio]19 No NfiaiJcrckl95-82 [facility] HospitalComment on above:Performed By: #### [id number] #### [facility] [address], [place] [address] ID#on [id number] Interpretation CodeCleveland Clinic Hillcrest HospitalComment on above:Performed By: #### [id number] #### [facility] [address], [place] [address]JHK w/ Auto Diffon 59-36-6432Umye form neutrophils/100 WBC (Bld)10.0 %High0.0-6.0[facility] HospitalComment on above:Performed By: #### [id number] #### [facility] [address], [place] [address]Inyvkdbhv (Bld) [#/Vol]0.0 E9/LNormal0.0-0.2FProMedica Fostoria Community HospitalComment on above:Performed By: #### [id number] #### [facility] [address] [place] [address]Qndzrezytkt (Bld) [#/Vol]0.0 E9/LNormal0.0-0.5FProMedica Fostoria Community HospitalComment on above:Performed By: #### [id number] #### [facility] [address] [place] [address]Sosedwynpqs/100 WBC (Bld)0.0 %Normal0.0-8.0[facility] HospitalComment on above:Performed By: #### [id number] #### [facility] [address] [place] [address]Bzcuzbapmno distribution width (RBC) [Ratio]15.5 %High10.9-14.2 [facility] HospitalComment on above:Performed By: #### [id number] #### [facility] [address] [place] [address]Wclkypdeuu (Bld) [Volume fraction]35.9 %Low37.7-49.0[facility] HospitalComment on above:Performed By: #### [id number] #### [facility] [address] [place] [address]Jwmcllhpzh (Bld) [Mass/Vol]11.9 g/dLLow13.5-17.5FProMedica Fostoria Community HospitalComment on above:Performed By: #### [id number] #### [facility] [address] [place] [address]Srafsfglddn (Bld) [#/Vol]0.1 E9/LLow1.0-4.0[facility] HospitalComment on above:Performed By: #### [id number] #### [facility] [address] [place] [address]Xfpjhsgxiul/100 WBC (Bld)1.0 %Low14.0-50.0[facility] HospitalComment on above:Performed By: #### [id number] #### [facility] [address] [place] [address]WYN (RBC) [Entitic mass]26.4 pgLow27.0-34.0[facility] HospitalComment on above:Performed By: #### [id number] #### [facility] [address] [place] [address]WJQD (RBC) [Mass/Vol]33.1 g/dVKixxfn86.4-36.0[facility] HospitalComment on above:Performed By: #### [id number] #### [facility] [address] [place] [address]TOM (RBC) [Entitic vol]79.7 fLLow80.0-100.0[facility] HospitalComment on above:Performed By: #### [id number] #### [facility] [address] [place] [address]Mtirjruif (Bld) [#/Vol]0.3 E9/LNormal0.2-1.0[facility] HospitalComment on above:Performed By: #### [id number] #### [facility] [address] [place] [address]Yojbbtgqzlr (Bld) [#/Vol]13.3 E9/LInvalid Interpretation Code [facility] HospitalComment on above:Performed By: #### [id number] #### [facility] [address] [place] [address]Ettleats mean volume (Bld) [Entitic vol]7.0 fLNormal6.4-10.8 [facility] HospitalComment on above:Performed By: #### [id number] #### [facility] [address] [place] [address]Nwujoeria (Bld) [#/Vol]254.0 E9/FQqrenj282.0-500.0[facility] HospitalComment on above:Performed By: #### [id number] #### [facility] [address], [place] [address]ORM (Bld) [#/Vol]4.5 E12/LNormal4.3-5.9[facility] HospitalComment on above:Performed By: #### [id number] #### [facility] [address], [place] [address]Rwzakiiup neutrophils/100 WBC (Bld)87.0 %High36.0-75.0[facility] HospitalComment on above:Performed By: #### [id number] #### [facility] [address] [place] [address]NJT corrected for nucl RBC Auto (Bld) [#/Vol]13.7 E9/LHigh 4.0-11.0[facility] HospitalComment on above:Performed By: #### [id number] #### [facility] [address] [place] [address]KITOZQEKSIinitux By: Lab Colette on 71-46-7921Jvyatzw [Mass/Vol]185 mg/jRPvul26 - 99 mg/dLMERCY HOSPITAL [place] [facility] [place] SubsectionComment on above:Result Comment: Notified RN/MDPOC UsernameSHDesmond HAMILTON Interpretation Code [facility] [place] [facility] SubsectionSodium [Moles/Vol][id number] mmol/LInvalid Interpretation CodeMER[facility] HOSPITAL [place] SubsectionSodium [Moles/Vol][id number] mmol/LInvalid Interpretation CodeMERCY HOSPITAL [place] [facility] [place] SubsectionCHEMISTRYOrdered By: SYSTEM SYSTEM on 78-55-5855Cbbam gap [Moles/Vol]11 mmol/LNormal6 - 16 mEq/LRemisol ChemCalcium [Mass/Vol]7.5 mg/dL Low8.9 - 11.1 mg/dLRemisol ChemChloride [Moles/Vol]108 mmol/NYumphc787 - 111 mmol/LRemisol ChemCO2 [Moles/Vol]22 mmol/ACsfsfx32 - 31 mmol/LRemisol Chem Creatinine [Mass/Vol]0.8 mg/dLNormal0.5 - 1.3 mg/dLRemisol RdriiVBA762 mL/min/1.73 a8Jccnec>=59mL/min/1.73 k1Oftjzef ChemGlucose [Mass/Vol]180 mg/dL Cwdspj02 - 199 mg/dLRemisol ChemPotassium [Moles/Vol]3.6 mmol/LNormal3.5 - 5.3 mmol/LRemisol ChemSodium [Moles/Vol]137 mmol/BTaxvtu540 - 145 mmol/LRemisol Chem Urea nitrogen [Mass/Vol]15 mg/dLNormal5 - 21 mg/dLRemisol ChemUrea nitrogen/Creatinine [Mass ratio]19 mg/jhNqknzq96 - 20Remisol ChemCapillary Glucose POCon 30-62-5637Iuveyix [Mass/Vol]185 mg/mSOkav43-65Nopvei00 Baker StreetComment on above:Result Comment: Notified RN/MDPerformed By: #### [id number] #### [facility] [address], [place] [address]Tkvguor [Mass/Vol]200 mg/hXSgwn93-40Vjvibd[address] Comment on above:Result Comment: Notified RN/MDPerformed By: #### [id number] #### [facility] [address], [place] [address]Qaypvky [Mass/Vol]183 mg/oKAtln99-66Yalmuq[address] Comment on above:Performed By: #### [id number] #### [facility] [address], [place] [address]Oububdl [Mass/Vol]168 mg/hHXznk78-00Kpakml[address] Comment on above:Result Comment: Cleaned MeterPerformed By: #### [id number] #### [facility] [address], [place] [address]Dhebjykuj Instructionson 50-22-3174Gqcsflbry Instructions Discharge Instructions CHAVA VASQUEZ JR :1970 Visit Date:05/22/2024 Inpatient Discharge Instructions Your Care Team Admitting Physician - Zen Rdz DO Referring Physician - Zen Rdz DO Reason for Your Visit OA LEFT SHOULDER Tests Performed XR Shoulder Complete Left -- Results Pending -- Please visit your patient portal for your results or contact your primary care physician. Procedure History Arthroscopy of shoulder with biceps tenodesis (04/07/2023), EGD - Esophagogastroduodenoscopy (08/05/2020), Repair of umbilical hernia (11/25/2014), Appendectomy (2014), Colonoscopy (02/24/2014), EGD - Esophagogastroduodenoscopy (02/24/2014), Cholecystectomy (03/27/2007), Arthroscopy of knee, Arthroscopy of knee, Cervical spinal fusion. Discharge Vitals Temperature (Axillary) 36.4 ???C Heart Rate (Monitored) 126 Respiratory Rate 11 Blood Pressure 162/112 What to do next New Follow Up Appointments after Discharge Follow Up with Zen Rdz When: 06/04/2024 11:15 AM EDT Comments: Appointment has already been scheduled. Call for any problems. Where: [address] [place] [phone] Business (1) Medications What How Much When Instructions Next Dose New acetaminophen-oxycodone (Percocet 5 mg-325 mg oral tablet) See instructions 1-2 tab(s) Oral q4hr Pickup at [facility]/pharmacy #6177 New celecoxib (CeleBREX 200 mg Cap) 1 Capsules By Mouth Every day start after finishing ketorolac Pickup at [facility]/pharmacy #6177 New cephalexin (Keflex 500 mg Cap) 1 Capsules By Mouth Every 8 hours Duration: 7 Days Pickup at [facility]/pharmacy #6177 New gabapentin (gabapentin 300 mg Cap) 1 Capsules By Mouth 3 times a day Duration: 14 Days Pickup at [facility]/pharmacy #6177 New ketorolac (ketorolac 10 mg Tab) 1 Tablets By Mouth Every 8 hours Duration: 3 Days Pickup at [facility]/pharmacy #6177 Changed docusate (Colace 100 mg Cap) 1 Capsules By Mouth 2 times a day as needed for for constipation Changed docusate (Colace 100 mg Cap) 1 Capsules By Mouth 2 times a day as needed for for constipation Pickup at [facility]/pharmacy #6177 Unchanged alprazolam (alprazolam 0.25 mg Tab) 1 Tablets By Mouth Every 8 hours as needed for anxiety Unchanged atorvastatin (atorvastatin 80 mg Tab) 1 Tablets By Mouth Every day Unchanged citalopram (CeleXA 20 mg Tab) 1 Tablets By Mouth Every day Unchanged glimepiride (glimepiride 1 mg Tab) 1.5 Tablets By Mouth Every day Unchanged metformin-sitagliptin (Janumet 50 mg/ 1000 mg oral tablet) 1 Tablets By Mouth 2 times a day Unchanged omeprazole (omeprazole 40 mg Cap-DR) 1 Capsules By Mouth Every day Unchanged sildenafil (sildenafil 100 mg Tab) 1 Tablets By Mouth Every day as needed for erectile dysfunction Pharmacy Information [facility]/pharmacy #6177: [address], [place] [phone] What How Much When Comments Stop Taking etodolac (etodolac 500 mg Tab) 1 Tablets By Mouth 2 times a day Stop Taking ibuprofen (ibuprofen 600 mg Tab) 1 Tablets By Mouth Every 6 hours as needed for as needed for pain with food or milk Allergies No Known Allergies Devices Implanted/Removed This Visit Notice: You have devices implanted this visit that may not be MRI compatible. Implanted SHOULDER TOTAL ARTHROPLASTY Shoulder L CEMENT SIMPLEX PLAIN VISCOSITY MEDIUM [6191-1-010] 05/22/2024, Unknown - FARIBA: [id number] CORTILOC PEGGED GLENOID 05/22/2024 HUMERAL HEAD ALMOND PAN FINISHER 05/22/2024 HUMERAL HEAD 05/22/2024 US ANATOMIC NUCLEUS 05/22/2024 Education Materials [place], [place] [facility] DISCHARGE INSTRUCTIONS: SHOULDER REPLACEMENT MEDICATIONS You will be given a prescription for pain medication. This should be taken with food as needed. This may cause stomach upset, dizziness, and possible constipation. Please notify the office if you have any medication allergies to this type of medication or if any problems develop with the medication. DRESSING CHANGES Leave your bandage in place until your follow up visit. The bandage is waterproof, so you may shower it home. Any increase in pain, temperature over 101 degrees, redness, or drainage should be reported to the office prior to your first office visit. ACTIVITY You may continue to progress activity as comfortably tolerated with your opposite arm. You may begin to use your elbow, wrist, and hand as directed in physical therapy. You should only remove your sling for bathing and to perform range of motion exercises for the hand, wrist, and elbow. Do not actively move your shoulder Continue to ice the shoulder several times per day until follow up. ANESTHESIA PRECAUTIONS You should not operate a vehicle, automobile, bicycle or motorcycle, machinery, or power tools, make any important decisions, or drink alcohol for 24 hours. It may be beneficial to have a responsible (more content not included)...Normal [facility] HospitalComment on above:Result Comment: Electronically Signed By: Juancarlos FREEMAN, Loulou Gutierrez\.br\Date and Time Signed: 05/22/24 13:06 [facility] CAPILLARY GLUCOSE POCon 32-01-2734Tqfzguz [Mass/Vol]168 mg/uVAtbo30 - 99 mg/dL [facility] HealthcareComment on above:Cleaned MeterInterpretation and review of laboratory resultsAbnormalNOMS HealthcareOriginal Ordering Provider: DO Zen Taylor HealthcareHEMATOLOGYOrdered By: SYSTEM SYSTEM on 05-22-2024 Band form neutrophils/100 WBC (Bld)10.0 %High0.0 - 6.0 %Remisol HemeBasophils (Bld) [#/Vol]0.0 E9/LNormal0.0 - 0.2 E9/LRemisol HemeBasophils/100 WBC (Bld)0.0 %Normal0.0 - 2.0 %Remisol HemeEosinophils (Bld) [#/Vol]0.0 E9/LNormal0.0 - 0.5 E9/LRemisol HemeEosinophils/100 WBC (Bld)0.0 %Normal0.0 - 8.0 %Remisol Heme Erythrocyte distribution width (RBC) [Ratio]15.5 %High10.9 - 14.2 %Remisol Heme Hematocrit (Bld) [Volume fraction]35.9 %Low37.7 - 49.0 %Remisol HemeHemoglobin (Bld) [Mass/Vol]11.9 g/dLLow13.5 - 17.5 gm/dLRemisol HemeLymphocytes (Bld) [#/Vol]0.1 E9/LLow1.0 - 4.0 E9/LRemisol HemeLymphocytes/100 WBC (Bld)1.0 %Low 14.0 - 50.0 %Remisol HemeMCH (RBC) [Entitic mass]26.4 pgLow27.0 - 34.0 pgRemisol HemeMCHC (RBC) [Mass/Vol]33.1 g/fMOepqeo82.4 - 36.0 gm/dLRemisol HemeMCV (RBC) [Entitic vol]79.7 fLLow80.0 - 100.0 fLRemisol HemeMonocytes (Bld) [#/Vol]0.3 E9/LNormal0.2 - 1.0 E9/LRemisol HemeMonocytes/100 WBC (Bld)2.0 %Low4.0 - 14.0 % Remisol HemeNeutrophils (Bld) [#/Vol]13.3 E9/LInvalid Interpretation CodeRemisol HemePlatelet mean volume (Bld) [Entitic vol]7.0 fLNormal6.4 - 10.8 fLRemisol HemePlatelets (Bld) [#/Vol]254.0 E9/EYwpcaf626.0 - 500.0 E9/LRemisol HemeRBC (Bld) [#/Vol]4.5 E12/LNormal4.3 - 5.9 E12/LRemisol HemeSegmented neutrophils/100 WBC (Bld)87.0 %High36.0 - 75.0 %Remisol HemeWBC corrected for nucl RBC Auto (Bld) [#/Vol]13.7 E9/LHigh4.0 - 11.0 E9/LRemisol HemeInpatient Patient Summaryon 40-02-0584Paxzvnefu Patient SummaryInpatient Patient Summary [place] [id number] [facility] Clinical Discharge Instructions PERSON INFORMATION Name: CHAVA VASQUEZ JR PHYSICIANS Admitting Physician: Zen Rdz DO Attending Physician: Zen Rdz DO PCP: MAX TUCKER DO Discharge Diagnosis: Comment: PATIENT EDUCATION INFORMATION Instructions: Post Op Patient Instructions - FT (Custom) (CUSTOM); Shoulder Cryocuff Patient Instructions - FT (CUSTOM); Soumya Rdz - Shoulder Replacement (Custom) Medication Leaflets: Follow up: With: Address: When: [place] [address] Business (1) 06/04/2024 11:15 AM Comments: Appointment has already been scheduled. Call for any problems. MEDICATION LIST New Medications [facility]/pharmacy #6177, [address], [place] [phone], [phone] acetaminophen-oxycodone (Percocet 5 mg-325 mg oral tablet) 1-2 tab(s) Oral q4hr. Refills: 0. celecoxib (CeleBREX 200 mg Cap) 1 Capsules By Mouth every day. start after finishing ketorolac. Refills: 0. cephalexin (Keflex 500 mg Cap) 1 Capsules By Mouth every 8 hours for 7 Days. Refills: 0. gabapentin (gabapentin 300 mg Cap) 1 Capsules By Mouth 3 times a day for 14 Days. Refills: 0. ketorolac (ketorolac 10 mg Tab) 1 Tablets By Mouth every 8 hours for 3 Days. Refills: 0. Medications to Continue Taking That Have Changed [facility]/pharmacy #6177, [address] [place] [phone], [phone] START: docusate (Colace 100 mg Cap) 1 Capsules By Mouth 2 times a day as needed for constipation. Refills: 0. Other Medications START: docusate (Colace 100 mg Cap) 1 Capsules By Mouth 2 times a day as needed for constipation. Refills: 0. Medications to Continue with No Changes Other Medications alprazolam (alprazolam 0.25 mg Tab) 1 Tablets By Mouth every 8 hours as needed anxiety. atorvastatin (atorvastatin 80 mg Tab) 1 Tablets By Mouth every day. citalopram (CeleXA 20 mg Tab) 1 Tablets By Mouth every day. glimepiride (glimepiride 1 mg Tab) 1.5 Tablets By Mouth every day. metformin-sitagliptin (Janumet 50 mg/1000 mg oral tablet) 1 Tablets By Mouth 2 times a day. omeprazole (omeprazole 40 mg Cap-DR) 1 Capsules By Mouth every day. sildenafil (sildenafil 100 mg Tab) 1 Tablets By Mouth every day as needed erectile dysfunction. No Longer Take the Following Medications etodolac (etodolac 500 mg Tab) 1 Tablets By Mouth 2 times a day. ibuprofen (ibuprofen 600 mg Tab) 1 Tablets By Mouth every 6 hours as needed as needed for pain. with food or milk. Refills: 0. Comment:[facility] HospitalIn[facility] Patient SummaryInpatient Patient Summary [place] [id number] [facility] Clinical Discharge Instructions PERSON INFORMATION Name: CHAVA VASQUEZ JR PHYSICIANS Admitting Physician: Zen Rdz DO Attending Physician: Zen Rdz DO PCP: MAX TUCKER DO Discharge Diagnosis: Comment: PATIENT EDUCATION INFORMATION Instructions: Soumya Rdz - Shoulder Replacement (Custom) Medication Leaflets: Follow up: MEDICATION LIST New Medications [facility]/pharmacy #6177, [address], [place] [phone], [phone] acetaminophen-oxycodone (Percocet 5 mg-325 mg oral tablet) 1-2 tab(s) Oral q4hr. Refills: 0. celecoxib (CeleBREX 200 mg Cap) 1 Capsules By Mouth every day. start after finishing ketorolac. Refills: 0. cephalexin (Keflex 500 mg Cap) 1 Capsules By Mouth every 8 hours for 7 Days. Refills: 0. gabapentin (gabapentin 300 mg Cap) 1 Capsules By Mouth 3 times a day for 14 Days. Refills: 0. ketorolac (ketorolac 10 mg Tab) 1 Tablets By Mouth every 8 hours for 3 Days. Refills: 0. Medications to Continue Taking That Have Changed [facility]/pharmacy #6177, [address], [place] [phone], [phone] START: docusate (Colace 100 mg Cap) 1 Capsules By Mouth 2 times a day as needed for constipation. Refills: 0. Other Medications START: docusate (Colace 100 mg Cap) 1 Capsules By Mouth 2 times a day as needed for constipation. Refills: 0. Medications to Continue with No Changes Other Medications alprazolam (alprazolam 0.25 mg Tab) 1 Tablets By Mouth every 8 hours as needed anxiety. atorvastatin (atorvastatin 80 mg Tab) 1 Tablets By Mouth every day. citalopram (CeleXA 20 mg Tab) 1 Tablets By Mouth every day. glimepiride (glimepiride 1 mg Tab) 1.5 Tablets By Mouth every day. metformin-sitagliptin (Janumet 50 mg/1000 mg oral tablet) 1 Tablets By Mouth 2 times a day. omeprazole (omeprazole 40 mg Cap-DR) 1 Capsules By Mouth every day. sildenafil (sildenafil 100 mg Tab) 1 Tablets By Mouth every day as needed erectile dysfunction. No Longer Take the Following Medications etodolac (etodolac 500 mg Tab) 1 Tablets By Mouth 2 times a day. ibuprofen (ibuprofen 600 mg Tab) 1 Tablets By Mouth every 6 hours as needed as needed for pain. with food or milk. Refills: 0. Comment:[facility] HospitalMain OR Intraoperative Recordon [id number] OR Intraoperative RecordMain OR Intraoperative Record IntraOp Document Type FT Summary Primary Physician: Zen Rdz DO Finalized Date/Time: 05/22/24 12:26:52 Pt. Name: CHAVA VASQUEZ JR./Sex: 1970 Male Med Rec #: [id number] Physician: Zen Rdz DO Financial #: [id number] Pt. Type: A Room/Bed: [place] [address] Admit/Disch: 05/22/24 07:46:27 - Institution: Case Times FT Entry 1 Patient Times In Room 05/22/24 10:01:00 Out Room 05/22/24 12:24:00 Procedure Times Start 05/22/24 10:39:00 Stop 05/22/24 12:15:00 Anesthesia Times Start 05/22/24 10:01:00 Stop 05/22/24 12:24:00 Block Timeout w05/22/24 09:11:00 Anesthesia Last Modified By: Roseline Lora 05/22/24 12:26:33 General Comments: BLOCK TIME OUT AT 0911 WITH AND NAZIA Campos RN ASSISTING. HEART RATE 86 BPM AND SPO2 99% ONROOM AIR. PATIENT TOLERATED WELL THEN TRANSPORTED BACK TO [facility] AND ATTACHED TO CONTINOUS MONITOR WHILE WAITINGTO GO BACK TO THE OR.LYIDA LÓPEZ. Case Attendance FT Entry 1 Entry 2 Entry 3 Case Attendee Joe Owens CRNA, DO, Jason A Ed PHOTOTYPESETTING EQUIPMENT MONITOR, Max Role Performed YARD TRUCK DRIVER Surgeon - Primary PHOTOTYPESETTING EQUIPMENT MONITOR/SA Time In 05/22/24 10:01:00 05/22/24 10:30:00 05/22/24 10:01:00 Time Out 05/22/24 12:24:00 05/22/24 12:00:00 05/22/24 12:24:00 Procedure SHOULDER TOTAL SHOULDER TOTAL SHOULDER TOTAL ARTHROPLASTY(Left) ARTHROPLASTY(Left) ARTHROPLASTY(Left) Comments IS SUPERVISING Last Modified By: Roseline Lora Kelsie E Burgderfer, Kelsie E 05/22/24 12:26:35 05/22/24 12:26:35 05/22/24 12:26:35 Entry 4 Entry 5 Entry 6 Case Attendee Roseline Lora LPN, Jack Ray Role Performed Glueline Worker - Primary Scrub - Primary Staff - Other Time In 05/22/24 10:01:00 05/22/24 10:01:00 05/22/24 10:01:00 Time Out 05/22/24 12:24:00 05/22/24 11:57:00 05/22/24 12:24:00 Procedure SHOULDER TOTAL SHOULDER TOTAL SHOULDER TOTAL ARTHROPLASTY(Left) ARTHROPLASTY(Left) ARTHROPLASTY(Left) Comments 2ND SCRUB Last Modified By: Roseline Lora Kelsie E Burgderfer, Kelsie E 05/22/24 12:26:35 05/22/24 12:26:35 05/22/24 12:26:35 Entry 7 Case Attendee Faheem Lee Role Performed Staff - Other Time In 05/22/24 10:01:00 Time Out 05/22/24 11:57:00 Procedure SHOULDER TOTAL ARTHROPLASTY(Left) Comments 3RD SCRUB Last Modified By: Roseline Lora 05/22/24 12:26:35 General Comments: BRITTNEY CARRION AND DANIEL TAVAREZ, IN ATTENDANCE.LYDIA LÓPEZ. Perioperative Protocols FT Pre-Care Text: Implements protective measures prior to operative or invasive procedure, confirms identity before the operative or invasive procedure, verifies operative procedure, surgical site, and laterality Entry 1 Procedure(s) SHOULDER TOTAL Patient Identity Birthday, ID Band ARTHROPLASTY(Left) Verified (select at Check, Patient least 2): Participation Consents / H and P Anesthesia Consent, Operative Site Present Verified H&P, Surgery/Procedure Marking Verified Consent, Transfusion Consent Surgical Site Yes Laterality Verified Yes Verified Procedure Verified Yes Correct Patient Yes Position Verified Availability Equipment, Implant, Prep Dry n/a Verified (If Medication Applicable) PreOp Antibiotic Yes Time Out Joe Owens CRNA, Given Participants Zen Rdz DO, Ed MYLES, Guido Santana Kelsie E, Mc LOCKEN, Damaris D, Jack Arellano, Faheem Lee Time Out Complete 05/22/24 10:38:00 Outcomes Met? Yes Last Modified By: Roseline Lora 05/22/24 10:47:06 Post-Care Text: The patient is free from signs and symptoms of injury caused by extraneous objects Allergy Information FT Pre-Care Text: Verifies allergies Entry 1 Allergies Reviewed? Yes Allergies Reviewed Self/Patient With Outcomes Met? Yes Last Modified By: Roseline Lora 05/22/24 10:47:13 Post-Care Text: The patient received appropriate medication(s) safely administered during the perioperative period Surgical Procedures FT Entry 1 Procedure Description Procedure SHOULDER TOTAL Modifiers Left ARTHROPLASTY Surgeon Description LEFT SHOULDER TOTAL ARTHROPLASTY Primary Procedure Yes Primary Surgeon Zen Rdz DO Start 05/22/24 10:39:00 Stop 05/22/24 12:15:00 Anesthesia Type General Surgical Service Orthopedics Wound Class 1 - Clean Last Modified By: Roseline Lora 05/22/24 12:26:36 General Case Data FT Pre-Care Text: Classifies surgical wound, implements aseptic technique, initiates traffic control Entry 1 Case Information OR OR 7 FT Case Level Level 6 Wound Class 1 - Clean Specialty Orthopedics ASA Class 2 Preop Diagnosis OSTEOARTHRITIS LEFT Postop Same As Preop Yes SHOULDER Postop Diagnosis OSTEOARTHRITIS LEFT Outcomes Met? Yes SHOULDER Last Modified By: Roseline Lora 05/22/24 10:47:32 Post-Care Text: The patient is free from signs and symptoms of in (more content not included)... [facility] Recordon [id number] OR PACU I RecordMain OR PACU I Record PACU Phase I Document Type FT Summary Primary Physician: Zen Rdz DO Finalized Date/Time: 05/22/24 17:00:18 Pt. Name: CHAVA VASQUZE JR Lexy cMkeon/Sex: 1970 Male Med Rec #: [id number] Physician: Zen Rdz DO Financial #: [id number] Pt. Type: O Room/Bed: Admit/Disch: 05/22/24 07:46:27 - Institution: Case Times PACU I FT Pre-Care Text: Identifies barriers to communication and implements measures to provide psychological support Develops individualized plan of care, and ensures continuity of care Maintains patient's dignity and privacy, and maintains patient confidentiality Identifies and reports philosophical, cultural, and spiritual beliefs and values Identifies individual values and wishes concerning care Implements aseptic technique, and administers prescribed antibiotic therapy and immunizing agents as ordered Evaluates postoperative tissue perfusion Implements thermoregulation measures, and monitors body temperature Evaluates postoperative respiratory status Evaluates postoperative cardiac status Evaluates postoperative neurological status Assesses pain control, collaborated in initiating patient-controlled analgesia and implements alternative methods of pain control Verifies allergies, administers prescribed medications and solutions, evaluates response to medications Entry 1 In PACU I 05/22/24 12:25:00 Discharge from PACU 05/22/24 17:00:00 I Outcomes Met? Yes Last Modified By: Charmaine Day I 05/22/24 17:00:04 Post-Care Text: The patient demonstrates knowledge of the expected response to the operative or invasive procedure The patient's care is consistent with the individualized perioperative plan of care The patient's rightto privacy is maintained The patient's value system, lifestyle, ethnicity, and culture are considered, respected, and incorporated into the perioperative plan of care The patient participates in decisions affecting his or her perioperative plan of care The patient is free from signs and symptoms of infection The patient has wound/tissue perfusion consistent with or improved from baseline levels established preoperatively The patient is at or returning to normothermia at the conclusion of the immediate postoperative period The patient's respiratory function is consistent with or improved from baseline levels established preoperativelyThe patient's cardiovascular status is consistent with or improved from baseline levels established preoperatively The patient's cardiovascular status is consistent with or improved from baseline levels established preoperatively The patient demonstrates and/or reports adequate pain control throughout the perioperative period The patient received appropriate medication(s), safely administered during the perioperativeperiod Acuity Level PACU I FT Entry 1 Start Time 05/22/24 12:25:00 Stop Time 05/22/24 17:00:00 Acuity Level Acuity Level I Last Modified By: Charmaine Day I 05/22/24 17:00:14 Finalized By: Charmaine Day I Document Signatures Signed By: Charmaine Day I 05/22/24 17:00[facility] Recordon [id number] OR Preoperative RecordMain OR Preoperative Record PreOp Document Type FT Summary Primary Physician: Zen Rdz DO Finalized Date/Time: 05/22/24 10:44:49 Pt. Name: KAREN MEJIACHAVA/Sex: 1970 Male Med Rec #: [id number] Physician: Zen Rdz DO Financial #: [id number] Pt. Type: A Room/Bed: [place] [address] Admit/Disch: 05/22/24 07:46:27 - Institution: Case Times PreOp FT Pre-Care Text: Verifies consent for planned procedure, identifies individual values and wishes concerning care, includes family members in perioperative teaching Entry 1 Patient Times. In Pre Surgery 05/22/24 07:50:00 Out Pre Surgery 05/22/24 09:59:00 Outcomes Met? Yes Last Modified By: Roseline Lora 05/22/24 10:44:46 Post-Care Text: The patient participates in decisions affecting his or her perioperative plan of care Finalized By: Roseline Lora Document Signatures Signed By: Roseline Lora 05/22/24 10:44 Roseline Lora 05/22/24 10:44NoKettering HealthOperative Reporton [id number] Report Operative Report Patient: KAREN MEJIA CHAVA Pugh Age: 53 years Sex: Male : 1970 Associated Diagnoses: None Author: Zen Rdz DO DATE OF SURGERY: 05/22/2024 SURGEON: Zen Rdz D.O. COLOR COATER: Domingo Ward CFA PREOPERATIVE DIAGNOSIS: Advanced glenohumeral osteoarthrosis, left shoulder POSTOPERATIVE DIAGNOSIS: Advanced glenohumeral osteoarthrosis, left shoulder OPERATION: 1. Left anatomic total shoulder arthroplasty (CPT code 16031) 2. Biceps tenodesis, left shoulder (CPT code 11108) ANESTHESIA: General with a regional block ANESTHESIOLOGIST: Joe Owens CRNA and Son Cordova MD IMPLANTS USED: 1. Tornier Perform Anatomic CortiLoc Pegged Glenoid, size L40 2. Tornier Perform stemless size 3 nucleus, centered humeral head telesales advisor, 48 x 18 mm humeral head OPERATIVE INDICATIONS: Chava is a 53-year-old cjito-ynve-onydlznr male who has had progressively worsening pain in the right shoulder despite conservative measures. He has a history of left shoulderarthroscopy with biceps tenodesis, subacromial decompression, and lysis of adhesions on 04/07/2023. He has continued to experience pain and stiffness. He was found to have areas of full thickness cartilage loss at the glenohumeral joint at the time of surgery. His pain interferes with her ADLs, ability to sleep, and quality of life. He wished to proceed with the above procedure after a discussion of the risks, benefits, complications, alternatives, and expectations. Please see office notes for fu rther details. Presurgical planning was performed with the [employer] Blueprint software and a patient-specific 3D guide was utilized intraoperatively. PROCEDURE: The correct operative site was identified and marked in the preoperative holding area. The patient was administered intravenous antibiotics in accordance with SCIP Protocol. He was administered 1 g of IV tranexamic acid. He wastransported to the regional block room and administered a regional anesthetic nerve block by the anesthesiologist. I requested the regional block to assist with intraoperative and postoperative pain control. The patient was transported tothe Operating Room and placed supine on the operating room table. He was administered a general anesthetic. Sequential stockings were placed on the legs. He was placed into the beach chair position with all bony prominences well padded and the head secured in the padded buck. The head of the table was elevated approximately 45 degrees. The operative upper extremity was then prepped and draped in the usual sterile fashion. The extremity was draped free and placed onto a padded sterile rodriguez stand. Surgical time-out was performed with all required personnel present. A deltopectoral approach was utilized. An incision was made beginning at the coracoid process and extended distally towards the deltoid insertion. The skin was scored with the 10 blade and deeper dissection was continued with the bovie. Hemostasis achieved along the way with Bovie electrocautery and Aquamantys. The cephalic vein was located. The deltopectoral interval was identified and opened. The cephalic vein was retracted laterally with the deltoid. Perforating veins into the pectoralis were cauterized with the bovie. Subdeltoid and subacromial adhesions were released with a Garber. Licona retractor was placed to retract the deltoid. The conjoined tendon was identified and the clavipectoral fascia was opened just lateral to the conjoined tendon. The conjoined tendon was gently retracted medially. The coracoacromial ligament was identified and the rotator interval was then opened. The bicipital sheath was opened and the biceps tendon was located. The biceps tendon was sutured to the pectoralis with two #2 FiberWire sutures. The tendon was then transected above the tenodesis site and excised proximally higher in the groove at the previous area of arthroscopic tenodesis. The anterior circumflex vessels were cauterized with the Bovie and Aquamantys. A subscapularis peel was performed and the tendon was released from the lesser tuberosity with the bovie. #2 fiberwiretag suture was placed into the subscapularis. The anterior capsule was released from the anterior humerus with the bovie. The arm was adducted, extended, and externally rotated to deliver the proximal humerus while the anterior capsule was released. The rotator cuff was inspected at the greater tuberosity and was intact. The junction of the rotator cuff and humeral head was demarcated. The 135 degree cut guide was positioned at the desired location along the proximal humerus and the planned cutwas marked with the bovie. The humeral head resection was then completed with the oscillating saw. The humeral cut protector was then placed. Inferior humeral head osteophytes were removed with an osteotome and rongeur. The anchor and suture from previous biceps tenodesis were removed. Attention was then turned to pre (more content not included)...NormalFisher Cotton Medical CenterComment on above:Result Comment: Electronically Signed By: Zen Rdz DO\.br\Date and Time Signed: 05/22/24 13:17 ESTOutpatient Surgery Discharge Instructionon [id number] Surgery Discharge Instruction Outpatient Surgery Discharge Instruction [address] [address] Patient Discharge Instructions PERSON INFORMATION Name: CHAVA VASQUEZ JR Date of : 1970 Current Date: 05/22/2024 15:57:16 PHYSICIANS Admitting Physician: Zne Rdz DO Discharge Diagnosis: CHAVA VASQUEZ JR has been given the following list of follow-up instructions, prescriptions, andpatient education materials: Wound Care Instructions: Do not remove dressing IF UNABLE TO CONTACT YOUR PHYSICIAN AND YOU FEEL IT IS AN EMERGENCY, GO TO THE NEAREST EMERGENCY ROOM OR CALL 911 I, CHAVA VASQUEZ JR, have received the attached patient education materials/instructions and have verbalized understanding: May we do a follow up call? Yes No I was present when discharge instructions were given Patient Signature Date Clinican/Nurse Signature Date Follow up: With: Address: When: Zen Rdz [address] [place] [address] [phone] Business (1) 06/04/2024 11:15 AM Comments: Appointment has already been scheduled. Call for any problems. Pharmacy Information: You may receive a survey from [email or web address] asking you to rate your care experience. Your feedback is important and will help us understand what we do well and how we can improve the quality of care we provide to you, your loved ones and our community. It???s an honor to serve you. Thank you for choosing [facility] HERE ARE THE MEDICATION CHANGES THAT OCCURRED DURING YOUR HOSPITAL STAY New Medications [facility]/pharmacy #[id number], [address], [place] [id number], [phone] acetaminophen-oxycodone (Percocet 5 mg-325 mg oral tablet) 1-2 tab(s) Oral q4hr. Refills: 0. celecoxib (CeleBREX 200 mg Cap) 1 Capsules By Mouth every day. start after finishing ketorolac. Refills: 0. cephalexin (Keflex 500 mg Cap) 1 Capsules By Mouth every 8 hours for 7 Days. Refills: 0. gabapentin (gabapentin 300 mg Cap) 1 Capsules By Mouth 3 times a day for 14 Days. Refills: 0. ketorolac (ketorolac 10 mg Tab) 1 Tablets By Mouth every 8 hours for 3 Days. Refills: 0. Medications to Continue Taking That Have Changed [facility]/pharmacy #[id number], [address], [place] [id number], [phone] START: docusate (Colace 100 mg Cap) 1 Capsules By Mouth 2 times a day as needed for constipation. Refills: 0. Other Medications START: docusate (Colace 100 mg Cap) 1 Capsules By Mouth 2 times a day as needed for constipation. Refills: 0. Medications to Continue with No Changes Other Medications alprazolam (alprazolam 0.25 mg Tab) 1 Tablets By Mouth every 8 hours as needed anxiety. atorvastatin (atorvastatin 80 mg Tab) 1 Tablets By Mouth every day. citalopram (CeleXA 20 mg Tab) 1 Tablets By Mouth every day. glimepiride (glimepiride 1 mg Tab) 1.5 Tablets By Mouth every day. metformin-sitagliptin (Janumet 50 mg/1000 mg oral tablet) 1 Tablets By Mouth 2 times a day. omeprazole (omeprazole 40 mg Cap-DR) 1 Capsules By Mouth every day. sildenafil (sildenafil 100 mg Tab) 1 Tablets By Mouth every day as needed erectile dysfunction. No Longer Take the Following Medications etodolac (etodolac 500 mg Tab) 1 Tablets By Mouth 2 times a day. ibuprofen (ibuprofen 600 mg Tab) 1 Tablets By Mouth every 6 hours as needed as needed for pain. with food or milk. Refills: 0. PATIENT EDUCATION INFORMATION Instructions: [place], [facility] DISCHARGE INSTRUCTIONS: SHOULDER REPLACEMENT MEDICATIONS You will be given a prescription for pain medication. This should be taken with food as needed. This may cause stomach upset, dizziness, and possible constipation. Please notify the office if you have any medication allergies to this type of medication or if any problems develop with the medication. DRESSING CHANGES Leave your bandage in place until your follow up visit. The bandage is waterproof, so you may shower it home. Any increase in pain, temperature over 101 degrees, redness, or drainage should be reported to the office prior to your first office visit. ACTIVITY You may continue to progress activity as comfortably tolerated with your opposite arm. You may begin to use your elbow, wrist, and hand as directed in physical therapy. You should only remove your sling for bathing and to perform range of motion exercises for the hand, wrist, and elbow. Do not actively move your shoulder Continue to ice the shoulder several times per day until follow up. (more content not included)...[facility] Discharge InstructionOutpatient Surgery Discharge Instruction [address] [address] Patient Discharge Instructions PERSON INFORMATION Name: CHAVA VASQUEZ JR Date of : 1970 Current Date: 05/22/2024 10:15:01 PHYSICIANS Admitting Physician: Zen Rdz DO Discharge Diagnosis: CHAVA VASQUEZ JR has been given the following list of follow-up instructions, prescriptions, andpatient education materials: IF UNABLE TO CONTACT YOUR PHYSICIAN AND YOU FEEL IT IS AN EMERGENCY, GO TO THE NEAREST EMERGENCY ROOM OR CALL 911 KAREN Stewart JR, ROBERT E, have received the attached patient education materials/instructions and have verbalized understanding: May we do a follow up call? Yes No I was present when discharge instructions were given Patient Signature Date Clinican/Nurse Signature Date Follow up: Pharmacy Information: You may receive a survey from [email or web address] asking you to rate your care experience. Your feedback is important and will help us understand what we do well and how we can improve the quality of care we provide to you, your loved ones and our community. It???s an honor to serve you. Thank you for choosing [facility] HERE ARE THE MEDICATION CHANGES THAT OCCURRED DURING YOUR HOSPITAL STAY New Medications [facility]/pharmacy #[id number], [address], [place] [phone], [phone] acetaminophen-oxycodone (Percocet 5 mg-325 mg oral tablet) 1-2 tab(s) Oral q4hr. Refills: 0. celecoxib (CeleBREX 200 mg Cap) 1 Capsules By Mouth every day. start after finishing ketorolac. Refills: 0. cephalexin (Keflex 500 mg Cap) 1 Capsules By Mouth every 8 hours for 7 Days. Refills: 0. gabapentin (gabapentin 300 mg Cap) 1 Capsules By Mouth 3 times a day for 14 Days. Refills: 0. ketorolac (ketorolac 10 mg Tab) 1 Tablets By Mouth every 8 hours for 3 Days. Refills: 0. Medications to Continue Taking That Have Changed [facility]/pharmacy #[id number], [address], [place] [phone], [phone] START: docusate (Colace 100 mg Cap) 1 Capsules By Mouth 2 times a day as needed for constipation. Refills: 0. Other Medications START: docusate (Colace 100 mg Cap) 1 Capsules By Mouth 2 times a day as needed for constipation. Refills: 0. Medications to Continue with No Changes Other Medications alprazolam (alprazolam 0.25 mg Tab) 1 Tablets By Mouth every 8 hours as needed anxiety. atorvastatin (atorvastatin 80 mg Tab) 1 Tablets By Mouth every day. citalopram (CeleXA 20 mg Tab) 1 Tablets By Mouth every day. glimepiride (glimepiride 1 mg Tab) 1.5 Tablets By Mouth every day. metformin-sitagliptin (Janumet 50 mg/1000 mg oral tablet) 1 Tablets By Mouth 2 times a day. omeprazole (omeprazole 40 mg Cap-DR) 1 Capsules By Mouth every day. sildenafil (sildenafil 100 mg Tab) 1 Tablets By Mouth every day as needed erectile dysfunction. No Longer Take the Following Medications etodolac (etodolac 500 mg Tab) 1 Tablets By Mouth 2 times a day. ibuprofen (ibuprofen 600 mg Tab) 1 Tablets By Mouth every 6 hours as needed as needed for pain. with food or milk. Refills: 0. PATIENT EDUCATION INFORMATION Instructions: [place], [place] [facility] DISCHARGE INSTRUCTIONS: SHOULDER REPLACEMENT MEDICATIONS You will be given a prescription for pain medication. This should be taken with food as needed. This may cause stomach upset, dizziness, and possible constipation. Please notify the office if you have any medication allergies to this type of medication or if any problems develop with the medication. DRESSING CHANGES Leave your bandage in place until your follow up visit. The bandage is waterproof, so you may shower it home. Any increase in pain, temperature over 101 degrees, redness, or drainage should be reported to the office prior to your first office visit. ACTIVITY You may continue to progress activity as comfortably tolerated with your opposite arm. You may begin to use your elbow, wrist, and hand as directed in physical therapy. You should only remove your sling for bathing and to perform range of motion exercises for the hand, wrist, and elbow. Do not actively move your shoulder Continue to ice the shoulder several times per day until follow up. ANESTHESIA PRECAUTIONS You should not operate a vehicle, automobile, bicycle or motorcycle, machinery, or power tools, make any important decisions, or drink alcohol for 24 hours. It may be beneficial to have a responsible adult remain with you for your first 24 hours after surgery. You may be drowsy and light-headed. DRIVING Driving is legal, however, (more content not included)...[facility] HospitalProceduralon [id number] Patient: CHAVA VASQUEZ JR Age: 53 years Sex: Male : 1970 Associated Diagnoses: None Author: Son Cordova MD Postoperative Information Postoperative disposition: Postoperative disposition: To PACU. Optimetrix number: Optimetrix number [id number]. Anesthetic utilized: General. Health Status Allergies: Allergic Reactions (Selected) No Known Allergies Physical Examination Vital Signs 05/22/2024 8:00 EST Heart Rate Monitored 87 bpm Systolic Blood Pressure 123 mmHg Diastolic Blood Pressure 79 mmHg Blood Pressure Location Left arm Mean Arterial Pressure, Monitered 94 mmHg 05/22/2024 8:00 EST Heart Rate Monitored 88 bpm SpO2 97 % 05/22/2024 7:59 EST Respiratory Rate 16 br/min 05/22/2024 7:59 EST Temperature Axillary 36.4 DegC 05/22/2024 7:59 EST Systolic Blood Pressure 136 mmHg Diastolic Blood Pressure 74 mmHg Blood Pressure Location Right arm Mean Arterial Pressure, Monitered 95 mmHg Pain Assessment: Controlled. General: Awake, Alert, Appropriate. Respiratory: Adequate air exchange. Cardiovascular: Stable, Normal peripheral perfusion. Neurological: Normal sensory function, Normal motor function. Assessment Anesthetic outcome No anesthetic complications noted. Adequate pain relief. able to void without difficulty, able to ambulate with assist, tolerating PO intake, no N/V. Review / Management Condition: Stable. Plan Transfer/Discharge: Transfer/Discharge Discharge when meets criteria ( From PACU to floor ). Exhibited confusion, weakness, mydriasis - attributed to serotonin syndrome. Observed in PACU for extended period of time yet remained too weak to consider sending home. Admitted to inpatient bed forobservation overnight. Discussed with patient and family.[facility] CH[facility] VASQUEZ JR Age: 53 years Sex: Male : 1970 Associated Diagnoses: None Author: Art PHAM, Son Garcia Postoperative Information Postoperative disposition: Postoperative disposition: To PACU. Optimetrix number: Optimetrix number [id number]. Anesthetic utilized: General. Health Status Allergies: Allergic Reactions (Selected) No Known Allergies Physical Examination Vital Signs 05/22/2024 8:00 EST Heart Rate Monitored 87 bpm Systolic Blood Pressure 123 mmHg Diastolic Blood Pressure 79 mmHg Blood Pressure Location Left arm Mean Arterial Pressure, Monitered 94 mmHg 05/22/2024 8:00 EST Heart Rate Monitored 88 bpm SpO2 97 % 05/22/2024 7:59 EST Respiratory Rate 16 br/min 05/22/2024 7:59 EST Temperature Axillary 36.4 DegC 05/22/2024 7:59 EST Systolic Blood Pressure 136 mmHg Diastolic Blood Pressure 74 mmHg Blood Pressure Location Right arm Mean Arterial Pressure, Monitered 95 mmHg Pain Assessment: Controlled. General: Awake, Alert, Appropriate. Respiratory: Adequate air exchange. Cardiovascular: Stable, Normal peripheral perfusion. Neurological: Normal sensory function, Normal motor function. Assessment Anesthetic outcome No anesthetic complications noted. Adequate pain relief. able to void without difficulty, able to ambulate with assist, tolerating PO intake, no N/V. Review / Management Condition: Stable. Plan Transfer/Discharge: Transfer/Discharge Discharge when meets criteria ( From PACU to floor ).[facility]: CHAVA VASQUEZ JR Age: 53 years Sex: Male : 1970 Associated Diagnoses: None Author: Son Cordova MD Procedure Nerve Block Block Type: Interscalene block. Laterality: Left. Informed consent for anesthesia management: Anesthesia options discussed including nerve block, Description of the procedure, risks, benefits, and alternatives was provided, The patient's questions were addressed. Time out: Confirmed correct patient, procedure and site. Time: Date/Time 05/21/2024 11:10:00. Indication: Block for postoperative pain management as requested by surgeon. Anesthesia Method: IV Sedation with monitored anesthesia care, The patient remained awake and able to interact in a meaningful way throughout the procedure. Preparation: The patient was placed in the following position Supine, Continuous pulse oximetry applied, Using maximal sterile barrier technique per current [facility] guidelines including hand hygeine, Guidance (Ultrasound used to identify anatomical landmarks, Using sterile gel and probe covers, Permanent image retained), The site was prepped (with ChloraPrep, Nerve monitor used with appropriate twitches illicited. loss at 0.2 mA). Procedure: Anesthetic Agent 20 mL 0.5% ropivicaine, Needle was inserted without pain or parasthesiain the conscious patient, Number of attempts 1, Negative attempt at aspiration for blood, Medial and lateral spread of the anesthestic was observed, Periodic negative attempts at aspiration of blood were made as the local was injected, No pain or parathesia were elicited with injection of the anesthetic in the conscious patient, It was idetified that the correct anesthetic agent was administered to the correct site. Complications: The patient tolerated the procedure as expected.[facility] HospitalXR SHOULDER COMPLETE LEFTon 05-22-2024 Exam Date/Time: 05/22/2024 12:43 EST Reason for Exam: Post Op Report IMPRESSION: Postsurgical changes of left shoulder arthroplasty. EXAM: XR Shoulder Complete Left HISTORY: Postoperative evaluation shoulder arthroplasty TECHNIQUE: Frontal and lateral views of the left shoulder COMPARISON: 04/18/2023 FINDINGS: Postsurgical changes of shoulder arthroplasty including soft tissue emphysema. Alignment is anatomic. No periprosthetic abnormality. Ordering Provider: Zen Rdz FINAL REPORT Dictated: 05/22/2024 2:31 pm Chava Robert DO Signed (Electronic Signature): 05/22/2024 2:31 pm Signed by: Chava Robert DO Transcribed by: SALVADOR Technologist: [facility] WATONGARadiology, Radiologist, MD - 05/22/2024 Exam Date/Time: 05/22/2024 12:43 EST Reason for Exam: Post Op Report IMPRESSION: Postsurgical changes of left shoulder arthroplasty. EXAM: XR Shoulder Complete Left HISTORY: Postoperative evaluation shoulder arthroplasty TECHNIQUE: Frontal and lateral views of the left shoulder COMPARISON: 04/18/2023 FINDINGS: Postsurgical changes of shoulder arthroplasty including soft tissue emphysema. Alignment is anatomic. No periprosthetic abnormality. Ordering Provider: Zen Rdz FINAL REPORT Dictated: 05/22/2024 2:31 pm Chava Robert DO Signed (Electronic Signature): 05/22/2024 2:31 pm Signed by: Chava Robert DO Transcribed by: SALVADOR Technologist: FELIBERTO TRUJILLO HealthcareRadiology Study observation (narrative)[facility] HospitalXR SHOULDER COMPLETE LEFTOrdered By: Radiologist Radiology on [id number] [employer] Work Phone: XR Shoulder Complete Lefton [id number] Shoulder Complete LeftExam Date/Time: 05/22/2024 12:43 EST Reason for Exam: Post Op Report IMPRESSION: Postsurgical changes of left shoulder arthroplasty. EXAM: XR Shoulder Complete Left HISTORY: Postoperative evaluation shoulder arthroplasty TECHNIQUE: Frontal and lateral views of the left shoulder COMPARISON: 04/18/2023 FINDINGS: Postsurgical changes of shoulder arthroplasty including soft tissue emphysema. Alignment is anatomic. No periprosthetic abnormality. Ordering Provider: Zen Rdz FINAL REPORT Dictated: 05/22/2024 2:31 pm Chava Robert DO Signed (Electronic Signature): 05/22/2024 2:31 pm Signed by: Chava Robert DO Transcribed by: SALVADOR Technologist: Mauricio TRUJILLOCleveland Clinic Hillcrest HospitaleGFRon 01-07-1703uFBA376 mL/min/1.73 m3Lmjgie>=59C[facility] Clinic Hillcrest HospitalComment on above:Performed By: #### [id number] #### Domingo [facility] [address], [place] [address]TS UPPER EXTREMITY W/O CONTRAST LEFTon 05-02-2024 Exam Date/Time: 04/30/2024 14:05 EST Reason for Exam: OA LEFT SHOULDER Report IMPRESSION: LEFT SHOULDER OSTEOARTHRITIS. EXAMINATION: CT Upper Extremity w/o Contrast Left HISTORY: Left shoulder osteoarthritis TECHNIQUE: Multiple contiguous axial images were obtained of the left upper extremity utilizing Tornier protocol. Multiplanar reformats were obtained. COMPARISON: None available FINDINGS: Degenerative changes including joint space narrowing, subcortical cyst formation, and marginal osteophyte formation of the glenohumeral joint. No acute fracture. Mild degenerative changes of the acromioclavicular joint. An anchor is present within the anterior aspect of the humeral head. Calcified left lung granulomas and coronary artery calcifications noted. All CT scans at this facility use dose modulation, iterative reconstruction, and/or weight based dosing when appropriate to reduce radiation dose to as low as reasonably achievable. Ordering Provider: Zen Rdz FINAL REPORT Dictated: 05/02/2024 1:42 pm Chava Robert DO Signed (Electronic Signature): 05/02/2024 1:42 pm Signed by: Chava Robert DO Transcribed by: SALVADOR Technologist: [facility]ITALRadiology, Radiologist, - 05/02/2024 Exam Date/Time: 04/30/2024 14:05 EST Reason for Exam: OA LEFT SHOULDER Report IMPRESSION: LEFT SHOULDER OSTEOARTHRITIS. EXAMINATION: CT Upper Extremity w/o Contrast Left HISTORY: Left shoulder osteoarthritis TECHNIQUE: Multiple contiguous axial images were obtained of the left upper extremity utilizing Tornier protocol. Multiplanar reformats were obtained. COMPARISON: None available FINDINGS: Degenerative changes including joint space narrowing, subcortical cyst formation, and marginal osteophyte formation of the glenohumeral joint. No acute fracture. Mild degenerative changes of the acromioclavicular joint. An anchor is present within the anterior aspect of the humeral head. Calcified left lung granulomas and coronary artery calcifications noted. All CT scans at this facility use dose modulation, iterative reconstruction, and/or weight based dosing when appropriate to reduce radiation dose to as low as reasonably achievable. Ordering Provider: Zen Rdz FINAL REPORT Dictated: 05/02/2024 1:42 pm Chava Robert DO Signed (Electronic Signature): 05/02/2024 1:42 pm Signed by: Chava Robert DO Transcribed by: SALVADOR Technologist: JOEY Peters UPPER EXTREMITY W/O CONTRAST LEFTOrdered By: Radiologist Radiology on 04-83-4852QBWV [employer] Work Phone: ct Upper Extremity w/o Contrast Lefton [id number] Upper Extremity w/o Contrast LeftExam Date/Time: 04/30/2024 14:05 EST Reason for Exam: OA LEFT SHOULDER Report IMPRESSION: LEFT SHOULDER OSTEOARTHRITIS. EXAMINATION: CT Upper Extremity w/o Contrast Left HISTORY: Left shoulder osteoarthritis TECHNIQUE: Multiple contiguous axial images were obtained of the left upper extremity utilizing Tornier protocol. Multiplanar reformats were obtained. COMPARISON: None available FINDINGS: Degenerative changes including joint space narrowing, subcortical cyst formation, and marginal osteophyte formation of the glenohumeral joint. No acute fracture. Mild degenerative changes of the acromioclavicular joint. An anchor is present within the anterior aspect of the humeral head. Calcified left lung granulomas and coronary artery calcifications noted. All CT scans at this facility use dose modulation, iterative reconstruction, and/or weight based dosing when appropriate to reduce radiation dose to as low as reasonably achievable. Ordering Provider: Zen Rdz FINAL REPORT Dictated: 05/02/2024 1:42 pm Chava Robert DO Signed (Electronic Signature): 05/02/2024 1:42 pm Signed by: Chava Robert DO Transcribed by: SALVADOR Technologist: Lizzie [facility] CenterABO/Rh Retypeon 06-86-1343BLB/Rh Retype InterpPositiveInvalid Interpretation CodeCleveland Clinic Hillcrest HospitalComment on above:Performed By: #### [id number] #### [facility] [address], [place] [address]IIMwe 86-61-8373Ydglf gap [Moles/Vol]10 mmol/LNormal6-16C[facility] Hillcrest HospitalComment on above:Performed By: #### [id number] #### [facility] [address], [place] [address]Qnlvwit [Mass/Vol]9.5 mg/dLNormal8.9-11.1FProMedica Fostoria Community HospitalComment on above:Performed By: #### [id number] #### [facility] [address], [place] [address]Icomqxce [Moles/Vol]103 mmol/EHakdem991-855EncdulCleveland Clinic Hillcrest HospitalComment on above:Performed By: #### [id number] #### [facility] [address], [place] [address]GD5 [Moles/Vol]30 mmol/UFsysty18-94YozdgvCleveland Clinic Hillcrest Hospital Comment on above:Performed By: #### [id number] #### [facility] [address], [place] [address]Jppmyknfhc [Mass/Vol]0.9 mg/dLNormal0.5-1.3FProMedica Fostoria Community HospitalComment on above:Performed By: #### [id number] #### [facility] [address], [place] [address]Rumzqpa [Mass/Vol]63 mg/lRVshupv34-894JivzmbCleveland Clinic Hillcrest HospitalComment on above:Performed By: #### [id number] #### [facility] [address], [place] [address]Eybddiqdh [Moles/Vol]4.3 mmol/LNormal3.5-5.3FProMedica Fostoria Community HospitalComment on above:Performed By: #### [id number] #### [facility] [address], [place] [address]Ndpsqr [Moles/Vol]139 mmol/PTenygh392-886UruwteCleveland Clinic Hillcrest HospitalComment on above:Performed By: #### [id number] #### [facility] [address], [place] [address]Dgzl nitrogen [Mass/Vol]18 mg/dLNormal5-21[facility] Hill[facility]st HospitalComment on above:Performed By: #### [id number] #### [facility] [address], [place] [address]Kadx nitrogen/Creatinine [Mass ratio]20 No GxksoXfksrn19-78 [facility] HospitalComment on above:Performed By: #### [id number] #### [facility] [address] [place] [address]SYQ w/ Auto Diffon 63-27-9371Twdudikkj/100 WBC (Bld)0.4 %Normal 0.0-2.0[facility] Hillcrest HospitalComment on above:Performed By: #### [id number] #### [facility] [address] [place] [address]Cxwdyglrk/Leukocytes Auto (Bld) [Pure # fraction]0.0 E9/LNormal 0.0-0.2FProMedica Fostoria Community HospitalComment on above:Performed By: #### [id number] #### [facility] [address] [place] [address]Olbgtzkvevn (Bld) [#/Vol]0.1 E9/LNormal0.0-0.5FProMedica Fostoria Community HospitalComment on above:Performed By: #### [id number] #### [facility] [address] [place] [address]Meegfedymxa/100 WBC (Bld)1.2 %Normal0.0-8.0[facility] Hill[facility]st HospitalComment on above:Performed By: #### [id number] #### [facility] [address] [place] [address]Tygfwjuztdf distribution width (RBC) [Ratio]15.2 %High10.9-14.2 [facility]st HospitalComment on above:Performed By: #### [id number] #### [facility] [address] [place] [address]Mftbgrxeyn (Bld) [Volume fraction]40.9 %Fncark06.7-49.0[facility] HospitalComment on above:Performed By: #### [id number] #### [facility] [address] [place] [address]Zbaqmxovog (Bld) [Mass/Vol]13.6 g/nYMjvoxf85.5-17.5FProMedica Fostoria Community HospitalComment on above:Performed By: #### [id number] #### [facility] [address] [place] [address]Qmxfbmvitxz (Bld) [#/Vol]1.5 E9/LNormal1.0-4.0[facility] HospitalComment on above:Performed By: #### [id number] #### [facility] [address] [place] [address]Rszgxzwhxhl/100 WBC (Bld)16.1 %Pbwfpf71.0-50.0[facility]st HospitalComment on above:Performed By: #### [id number] #### [facility] [address] [place] [address]99[address]QHD (RBC) [Entitic mass]26.7 pgLow27.0-34.0[facility]st HospitalComment on above:Performed By: #### [id number] #### [facility] [address] [place] [address]XDDQ (RBC) [Mass/Vol]33.3 g/rXCqyctf05.4-36.0[facility] HospitalComment on above:Performed By: #### [id number] #### [facility] [address] [place] [address]GND (RBC) [Entitic vol]80.1 jOSumoml76.0-100.0[facility] HospitalComment on above:Performed By: #### [id number] #### [facility] [address] [place] [address] 65[address]Zfuaymreb (Bld) [#/Vol]0.7 E9/LNormal0.2-1.0[facility] HospitalComment on above:Performed By: #### [id number] #### [facility] [address] [place] [address]Gthbngiuflx (Bld) [#/Vol]6.9 E9/LNormal2.0-7.5FProMedica Fostoria Community HospitalComment on above:Performed By: #### [id number] #### [facility] [address], [place] [address]Bssrotpzgys/100 WBC (Bld)75.1 %High36.0-75.0[facility] HospitalComment on above:Performed By: #### [id number] #### [facility] [address], [place] [address]Tfneglhz mean volume (Bld) [Entitic vol]7.3 fLNormal6.4-10.8 [facility] HospitalComment on above:Performed By: #### [id number] #### [facility] [address] [place] [address]Bydekohik (Bld) [#/Vol]344.0 E9/FXymglb978.0-500.0[facility] HospitalComment on above:Performed By: #### [id number] #### [facility] [address] [place] [address]YRH (Bld) [#/Vol]5.1 E12/LNormal4.3-5.9[facility] HospitalComment on above:Performed By: #### [id number] #### [facility] [address] [place] [address]JDW corrected for nucl RBC Auto (Bld) [#/Vol]9.1 E9/LNormal 4.0-11.0[facility] HospitalComment on above:Performed By: #### [id number] #### [facility] [address] [place] [address]MSVZTJRBXTqaakpy By: Sheila Tejeda on 63-23-1563Lvsqu gap [Moles/Vol]10 mmol/LNormal6 - 16 mEq/LRemisol ChemCalcium [Mass/Vol]9.5 mg/dL Normal8.9 - 11.1 mg/dLRemisol ChemChloride [Moles/Vol]103 mmol/BIlnntj151 - 111 mmol/LRemisol ChemCO2 [Moles/Vol]30 mmol/IGcaiip22 - 31 mmol/LRemisol Chem Creatinine [Mass/Vol]0.9 mg/dLNormal0.5 - 1.3 mg/dLRemisol SzzxiZJZ157 mL/min/1.73 d7Awfjye>=59mL/min/1.73 h9Wczlteq ChemGlucose [Mass/Vol]63 mg/dL Kyjahv75 - 199 mg/dLRemisol ChemPotassium [Moles/Vol]4.3 mmol/LNormal3.5 - 5.3 mmol/LRemisol ChemSodium [Moles/Vol]139 mmol/QVjocve642 - 145 mmol/LRemisol Chem Urea nitrogen [Mass/Vol]18 mg/dLNormal5 - 21 mg/dLRemisol ChemUrea nitrogen/Creatinine [Mass ratio]20 mg/ioBdghtz18 - 20Remisol ChemCHEMISTRY Ordered By: Tanmay Ornelas on 45-17-9279XdW2f (Bld) [Mass fraction]7.4 %High<=5.9% [facility] ChemAutoSSCT UPPER EXTREMITY W/O CONTRAST LEFTon 71-09-7013Jpqluxjay Study observation (narrative)[facility] HealthcareHEMATOLOGYOrdered By: SYSTEM SYSTEM on 86-20-6620Mqlgmamti/100 WBC (Bld)0.4 %Normal0.0 - 2.0 %Remisol Heme Basophils/Leukocytes Auto (Bld) [Pure # fraction]0.0 E9/LNormal0.0 - 0.2 E9/L Remisol HemeEosinophils (Bld) [#/Vol]0.1 E9/LNormal0.0 - 0.5 E9/LRemisol Heme Eosinophils/100 WBC (Bld)1.2 %Normal0.0 - 8.0 %Remisol HemeErythrocyte distribution width (RBC) [Ratio]15.2 %High10.9 - 14.2 %Remisol HemeHematocrit (Bld) [Volume fraction]40.9 %Vgpwdr85.7 - 49.0 %Remisol HemeHemoglobin (Bld) [Mass/Vol]13.6 g/rRYedafk84.5 - 17.5 gm/dLRemisol HemeLymphocytes (Bld) [#/Vol] 1.5 E9/LNormal1.0 - 4.0 E9/LRemisol HemeLymphocytes/100 WBC (Bld)16.1 %Normal 14.0 - 50.0 %Remisol HemeMCH (RBC) [Entitic mass]26.7 pgLow27.0 - 34.0 pgRemisol HemeMCHC (RBC) [Mass/Vol]33.3 g/sPEbjdbo58.4 - 36.0 gm/dLRemisol HemeMCV (RBC) [Entitic vol]80.1 iUYcmgbn24.0 - 100.0 fLRemisol HemeMonocytes (Bld) [#/Vol]0.7 E9/LNormal0.2 - 1.0 E9/LRemisol HemeMonocytes/100 WBC (Bld)7.2 %Normal4.0 - 14.0 %Remisol HemeNeutrophils (Bld) [#/Vol]6.9 E9/LNormal2.0 - 7.5 E9/LRemisol Heme Neutrophils/100 WBC (Bld)75.1 %High36.0 - 75.0 %Remisol HemePlatelet mean volume (Bld) [Entitic vol]7.3 fLNormal6.4 - 10.8 fLRemisol HemePlatelets (Bld) [#/Vol] 344.0 E9/DFpndgm972.0 - 500.0 E9/LRemisol HemeRBC (Bld) [#/Vol]5.1 E12/LNormal 4.3 - 5.9 E12/LRemisol HemeWBC corrected for nucl RBC Auto (Bld) [#/Vol]9.1 E9/L Normal4.0 - 11.0 E9/LRemisol DtxsDbbE5iim 26-48-6659TnE2v (Bld) [Mass fraction] 7.4 %High<=5.9[facility] HospitalComment on above:Performed By: #### [id number] #### [facility] [address] [place] [address]ZD WITH CULT RFLXon 05-87-5665WBUCWOUKU:PRTHR:PT:URINE:ORD:TEST STRIP.AUTOMATED2+AbnormalNegative mg/dLSt. Luke's Hospital CLARITY:TYPE:PT:URINE:NOM:ClearClearSt. Luke's Hospital CLASS:TYPE:PT:URINE COLLECTION METHOD:NOM:*Clean CatchSt. Luke's Hospital COLOR:TYPE:PT:URINE:NOM:AUTOLight-YellowYellowWashington County Memorial HospitalComment on above: Microscopic readings are only performed on those samples that meet specific criteria set forth by [facility] PH:LSCNC:PT:URINE:QN:TEST STRIP6.55.0 - 9.0[facility] SPECIFIC GRAVITY:RDEN:PT:URINE:QN:TEST STRIP1.0121.005 - 1.030[facility] GLUCOSE:PRTHR:PT:URINE:ORD:TEST STRIPNegativeNegative mg/dLCEDAR CITY HOSPITAL Healthcare HEMOGLOBIN:MCNC:PT:URINE:SEMIQN:TEST STRIP.AUTOMATEDNegativeNegative mg/dLCEDAR CITY HOSPITAL HealthcareInterpretation and review of laboratory resultsAbWalter P. Reuther Psychiatric Hospital KETONES:PRTHR:PT:URINE:ORD:TEST STRIP.AUTOMATEDNegativeNegative mg/dLWashington County Memorial HospitalLEUKOCYTE ESTERASE:PRTHR:PT:URINE:ORD:TEST STRIP.AUTOMATEDNegative Negative CD:[id number] County Memorial HospitalNITRITE:PRTHR:PT:URINE:ORD:TEST STRIP.AUTOMATEDNegativeNegative mg/dLCEDAR CITY HOSPITAL Healthcare PROTEIN:PRTHR:PT:URINE:ORD:TEST STRIPNegativeNegative mg/dLCEDAR CITY HOSPITAL Healthcare UROBILINOGEN:MCNC:PT:URINE:SEMIQN:TEST STRIPNegativeNegative mg/dLNOCT HealthcareOriginal Ordering Provider: DO Zen AaronMcLeod Regional Medical CenterUA with Cult Rflxon 42-42-5919Iikfahfwq Ql (U)2+ mg/dLAbnormalNegativeCleveland Clinic Hillcrest HospitalComment on above:Performed By: #### [id number] #### [facility] [address], [place] [address]Drgcmfc (U)ClearNormalClearCleveland Clinic Hillcrest HospitalComment on above:Performed By: #### [id number] #### [facility] [address], [place] [address]Xqnil (U)Light-YellowNormalYCleveland Clinic [facility] Comment on above:Result Comment: Microscopic readings are only performed on those samples that meet specific criteria set forth by [facility].Performed By: #### [id number] #### [facility] [address], [place] [address]Dbblyka Ql (U)NegativeNormalNegDayton VA Medical Center Comment on above:Performed By: #### [id number] #### [facility] [address] [place] [address] 35[address]Vakyacxtql Auto test strip (U) [Mass/Vol]NegativeNormalNegative [facility] HospitalComment on above:Performed By: #### [id number] #### [facility] [address] [place] [address] 356[address]Yafgucp Auto test strip Ql (U)NegativeNormalNegDayton VA Medical CenterComment on above:Performed By: #### [id number] #### [facility] [address] [place] [address] 509[address]Lopkedncv esterase Auto test strip Ql (U)NegativeNormalNegative [facility] HospitalComment on above:Performed By: #### [id number] #### [facility] [address] [place] [address]Whespdk Auto test strip Ql (U)NegativeNormalNegDayton VA Medical CenterComment on above:Performed By: #### [id number] #### [facility] [address] [place] [address] 812[address]wJ (U)6.5 [pH]Invalid Interpretation Code5.0-9.0[facility] HospitalComment on above:Performed By: #### [id number] #### [facility] [address], [place] [address]Vpvyaem Ql (U)NegativeNormalNegDayton VA Medical Center Comment on above:Performed By: #### [id number] #### [facility] [address], [place] [address]Hytoukto gravity (U) [Rel density]1.012Invalid Interpretation Code1.005-1.030[facility] HospitalComment on above:Performed By: #### [id number] #### [facility] [address], [place] [address]Qjhglybeeixh (U) [Mass/Vol]NegativeNormalNegativeCleveland Clinic Hillcrest HospitalComment on above:Performed By: #### [id number] #### [facility] [address], [place] [address]Ubxu of Urine collection methodClean CatchNormalCleveland Clinic Hillcrest HospitalComment on above:Performed By: #### [id number] #### [facility] [address], [place] [address]VBHRVDHBRVTkjtdej By: SYSTEM SYSTEM on 75-19-4243Ayrkqatxs Ql (U)2+ mg/dLInvalid Interpretation CodeNegativemg/dLMER[facility] [place] UA Auto SSClarity (U) Clear (04/30/24 1:42 PM)NormalClearFTM UA Auto SSColor (U)Light-Yellow 1 (04/30/24 1:42 PM)NormalYellowMERCY HOSPITAL [facility] [place] UA Auto SSComment on above:Interpretive Data: Microscopic readings are only performed on those samples that meet specific criteria set forth by [facility].Glucose Ql (U) NegativeNormalNegativemg/dLFT UA Auto SSHemoglobin Auto test strip (U) [Mass/Vol]NegativeNormalNegativemg/dLFT UA Auto SSKetones Auto test strip Ql (U)NegativeNormalNegativemg/dLFT UA Auto SSLeukocyte esterase Auto test strip Ql (U)NegativeNormalNegativeLeu/uLFT UA Auto SSNitrite Auto test strip Ql (U) NegativeNormalNegativemg/dLFT UA Auto SSpH (U)6.5 *NA* (04/30/24 1:42 PM)Invalid Interpretation Code5.0 - 9.0FT UA Auto SSProtein Ql (U)NegativeNormalNegativemg/dLFT UA Auto SSSpecific gravity (U) [Rel density] 1.012 *NA* (04/30/24 1:42 PM)Invalid Interpretation Code1.005 - 1.030FT UA Auto SS Urobilinogen (U) [Mass/Vol]NegativeNormalNegativemg/dLMER[facility] HOS[facility] [place]A Auto SSURINALYSIS Ordered By: Marissa White on 44-24-0761XL Spec DescClean Catch (04/30/24 1:42 PM)NormalMERCY HOS[facility] [place] UA Auto SSXR Chest 2 Viewson 08-32-8960SB Chest 2 ViewsExam Date/Time: 04/30/2024 13:59 EST Reason for Exam: P.A.T. Report IMPRESSION: NO RADIOGRAPHIC EVIDENCE OF ACUTE INTRATHORACIC PROCESS. EXAMINATION: XR Chest 2 Views HISTORY: Preoperative evaluation TECHNIQUE: Frontal and lateral views of the chest. COMPARISON: 03/15/2023 FINDINGS: Cardiomediastinal silhouette is within normal limits. No pneumothorax, pleural effusion, or consolidation. No acute osseous abnormality. Ordering Provider: Nagi Ramires FINAL REPORT Dictated: 04/30/2024 3:51 pm Chava Robert DO Signed (Electronic Signature): 04/30/2024 3:51 pm Signed by: Chava Robert DO Transcribed by: SALVADOR Technologist: [facility] CentereGFRon 18-42-8715kCWI177 mL/min/1.73 h8Yjbpbq>=59[facility] HospitalComment on above:Performed By: #### [id number] #### [facility] [address], [place] [address]IrF2i (Bld) [Mass fraction]on 89-18-1249Buhiautebnoevp and review of laboratory resultsNormalFormerly [facility] HospitalLaboratory - Hematology and Cell countson 05-61-9149CuU2z (Bld) [Mass fraction]7.2 %NOM RoetwlofxiVmI5g (Bld) [Mass fraction]on 06-12-0314Vvslptnyqklxmh and review of laboratory resultsNormalFormerly [facility] HospitalLaboratory - Hematology and Cell countson 43-33-4243KqI6t (Bld) [Mass fraction]7.6 %[facility] HealthcareANA Antinuclear Antibodieson 50-21-3139Iyodfroeire Abs, IFANegativeNormal.The Unc Health Physician GroupComment on above:Result Comment: Negative <1:80 Borderline 1:80 Positive >1:80 ICAP nomenclature: AC-0 For more information about Hep-2 cell patterns use ANApatterns.org, the official website for the International Consensus on Antinuclear Antibody (TONJA) Patterns (ICAP). Performed at: [facility] [id number] Videotape Recording Engineer: Scott Freedman PhD, Phone: [phone] By: #### PP, ESR, CK, ADDONUAPLUS, CRP, CMP, TSH3, CBC, T4F #### [address] #### ALDOLASE, FRANCISCO,URINE, UPE RAND, SPE, RPR W RFX, FRANCISCO SERUM #### [facility] ,Activated partial thromboplastin time (aPTT) in platelet poor plasma by coagulation aOrdered By: Rajan Moreland on 86-41-6547uMLT Coag (PPP) [Time]25.9 s25.1-36.5FMarietta Memorial HospitalComment on above:A hematocrit value greater than 55% may lead to inaccurate results in coagulation testing. Patients having hematocrit values >55% require a special collection tube for coagulation studies. Please contact the laboratory at [phone] for redraw instructions. Alanine aminotransferase [Enzymatic activity/volume] in Serum or PlasmaOrdered By: Rajan Moreland on 68-65-1598HVL [Catalytic activity/Vol]33 U/L7-52[facility] HospitalComment on above:Performed By: #### PP, ESR, CK, ADDONUAPLUS, CRP, CMP, TSH3, CBC, T4F #### [place] [address] [place] #### ALDOLASE, FRANCISCO,URINE, UPE RAND, SPE, RPR W RFX, FRANCISCO SERUM #### [facility] ,Albumin [Mass/volume] in Serum or Plasma by Bromocresol green (BCG) dye binding methoOrdered By: Rajan Moreland on 72-48-0126Gweblwv BCG dye [Mass/Vol]4.6 g/dL 3.5-5.7FMarietta Memorial HospitalAlbumin/Protein.total in 24 hour Urine by ElectrophoresisOrdered By: Rajan Moreland on 38-37-8999Bugcpvb Elph (24H U) [Mass fraction]31.5 %.[facility] HospitalAldolaseon 08-16-2023 Aldolase4.0 U/LNormal3.3-10.3The Unc Health Physician GroupComment on above: Result Comment: Performed at: [facility] [id number] Videotape Recording Engineer: Scott Freedman PhD, Phone: [phone] PERFORMED BY: [place] [address] PATHOLOGIST RUBBER FACTORY WORKER LUZ ELENA MEDINA M.D.Performed By: #### PP, ESR, CK, ADDONUAPLUS, CRP, CMP, TSH3, CBC, T4F #### [address] #### ALDOLASE, FRANCISCO,URINE, UPE RAND, SPE, RPR W RFX, FRANCISCO SERUM #### [facility] ,Alkaline phosphatase [Enzymatic activity/volume] in Serum or PlasmaOrdered By: Rajan Moreland on 49-63-5356TCK [Catalytic activity/Vol]61 U/Y05-973AjdtdrtgsFayette County Memorial HospitalComment on above:Performed By: #### PP, ESR, CK, ADDONUAPLUS, CRP, CMP, TSH3, CBC, T4F #### [facility] [address] [place] [address] [place] #### ALDOLASE, FRANCISCO,URINE, UPE RAND, SPE, RPR W RFX, FRANCISCO SERUM #### [facility] ,Antithyroglobulin Abon 26-18-5838Gsrqpwtrfxzrlvgtk Ab<1.1Pklzpl4.0-0.9The Unc Health Physician GroupComment on above:Result Comment: Thyroglobulin Antibody measured by [employer] Methodology It should be noted that the presence of thyroglobulin antibodies may not be pathogenic nor diagnostic, especially at very low levels. The assay stem lead former has found that four percent of individuals without evidence of thyroid disease or autoimmunity will have positive TgAb levels up to 4 IU/mL. Performed at: [facility] [id number] Videotape Recording Engineer: Scott Freedman PhD, Phone: [phone] By: #### PP, ESR, CK, ADDONUAPLUS, CRP, CMP, TSH3, CBC, T4F #### [address] #### ALDOLASE, FRANCISCO,URINE, UPE RAND, SPE, RPR W RFX, FRANCISCO SERUM #### [facility] ,Aspartate aminotransferase [Enzymatic activity/volume] in Serum or Plasma Ordered By: Rajan Moreland on 51-63-7607HWD [Catalytic activity/Vol]22 U/L13-39 [facility] HospitalComment on above:Performed By: #### PP, ESR, CK, ADDONUAPLUS, CRP, CMP, TSH3, CBC, T4F #### [address] #### ALDOLASE, FRANCISCO,URINE, UPE RAND, SPE, RPR W RFX, FRANCISCO SERUM #### [facility] ,Automated basophil %Ordered By: Rajan Moreland on 79-22-7306Viotqfdae/100 WBC (Bld)0.5 %.[facility] HospitalComment on above:Performed By: #### PP, ESR, CK, ADDONUAPLUS, CRP, CMP, TSH3, CBC, T4F #### [place] [address] [place] #### ALDOLASE, FRANCISCO,URINE, UPE RAND, SPE, RPR W RFX, FRANCISCO SERUM #### [facility] ,Automated basophil countOrdered By: Rajan Moreland on 58-24-3466Cdipfkzgp (Bld) [#/Vol]0.0 10*3/uL0.0-0.2FMarietta Memorial HospitalComment on above: Performed By: #### PP, ESR, CK, ADDONUAPLUS, CRP, CMP, TSH3, CBC, T4F #### [address] #### ALDOLASE, FRANCISCO,URINE, UPE RAND, SPE, RPR W RFX, FRANCISCO SERUM #### [facility] ,Automated blood monocyte countOrdered By: Rajan Pascualrow on 87-92-6784Buyfutfwt (Bld) [#/Vol]0.5 10*3/uL0.0-0.8[facility] HospitalComment on above:Performed By: #### PP, ESR, CK, ADDONUAPLUS, CRP, CMP, TSH3, CBC, T4F #### [address] #### ALDOLASE, FRANCISCO,URINE, UPE RAND, SPE, RPR W RFX, FRANCISCO SERUM #### [facility] ,Automated eosinophil %Ordered By: Rajan Moreland on 95-80-0869Etssokmsjfm/100 WBC (Bld)1.1 %.[facility] HospitalComment on above:Performed By: #### PP, ESR, CK, ADDONUAPLUS, CRP, CMP, TSH3, CBC, T4F #### [address] #### ALDOLASE, FRANCISCO,URINE, UPE RAND, SPE, RPR W RFX, FRANCISCO SERUM #### [facility] ,Automated eosinophil countOrdered By: Rajan Moreland on 50-55-5143Wtvtkwmyjmt (Bld) [#/Vol]0.1 10*3/uL0.0-0.45[facility] HospitalComment on above:Performed By: #### PP, ESR, CK, ADDONUAPLUS, CRP, CMP, TSH3, CBC, T4F #### [place] [address] [place] #### ALDOLASE, FRANCISCO,URINE, UPE RAND, SPE, RPR W RFX, FRANCISCO SERUM #### [facility] ,Automated monocyte %Ordered By: Rajan Moreland on 63-08-3209Kzognxrwv/100 WBC (Bld)5.8 %.[facility] Memorial HospitalComment on above:Performed By: #### PP, ESR, CK, ADDONUAPLUS, CRP, CMP, TSH3, CBC, T4F #### [facility] [address] [place] [address] #### ALDOLASE, FRANCISCO,URINE, UPE RAND, SPE, RPR W RFX, FRANCISCO SERUM #### [facility] ,Automated neutrophil %Ordered By: Rajan Moreland on 07-89-2526Fmksfjkgeqi/100 WBC (Bld)79.8 %.[facility] HospitalComment on above:Performed By: #### PP, ESR, CK, ADDONUAPLUS, CRP, CMP, TSH3, CBC, T4F #### [address] #### ALDOLASE, FRANCISCO,URINE, UPE RAND, SPE, RPR W RFX, FRANCISCO SERUM #### [facility] ,Bacteria [Presence] in Urine by AutomatedOrdered By: Rajan Moreland on 43-36-6881Deuaxajd Auto Ql (U)None seen [HPF]None SeenFayette County Memorial HospitalBilirubin Test strip Ql (U)Ordered By: Rajan Moreland on 08-16-2023 Bilirubin Ql (U)NegativeNegativeFayette County Memorial HospitalBilirubin.total [Mass/volume] in Serum or PlasmaOrdered By: Rajan Moreland on 08-16-2023 Bilirubin [Mass/Vol]1.2 mg/dL0.3-1.0[facility] HospitalComhillsdale hospital on above:Performed By: #### PP, ESR, CK, ADDONUAPLUS, CRP, CMP, TSH3, CBC, T4F #### [facility] [address] [place] [address] [place] #### ALDOLASE, FRANCISCO,URINE, UPE RAND, SPE, RPR W RFX, FRANCISCO SERUM #### [facility] ,C reactive protein [Mass/volume] in Serum or PlasmaOrdered By: Rajan Moreland on 14-92-1104NKU [Mass/Vol]< 0.5 mg/dL0.0-0.5FMarietta Memorial HospitalC- Reactive Proteinon 07-06-0353UVI [Mass/Vol]mg/LNormal0.0-0.5The Unc Health Physician GroupComment on above:Performed By: #### PP, ESR, CK, ADDONUAPLUS, CRP, CMP, TSH3, CBC, T4F #### [facility] [address] [place] [address] #### ALDOLASE, FRANCISCO,URINE, UPE RAND, SPE, RPR W RFX, FRANCISCO SERUM #### [facility] ,CT biopsyOrdered By: Rajan Moreland on 00-25-5259ZA biopsy4.0 U/L3.3-10.3 [facility] Memorial HospitalComment on above:Performed at: [facility] Director: Scott Freedman PhD, Phone: [phone] [Mass/volume] in Serum or PlasmaOrdered By: Rajan Moreland on 28-40-8248Enbwxoh [Mass/Vol]9.9 mg/dL8.6-10.3FMarietta Memorial HospitalComment on above:Performed By: #### PP, ESR, CK, ADDONUAPLUS, CRP, CMP, TSH3, CBC, T4F #### [place] [address] [place] #### ALDOLASE, FRANCISCO,URINE, UPE RAND, SPE, RPR W RFX, FRANCISCO SERUM #### [facility] ,Carbon dioxide, total [Moles/volume] in Serum or PlasmaOrdered By: Rajan Moreland on 49-55-0640GB5 [Moles/Vol]29.6 mmol/L21.0-31.0[facility] Memorial HospitalComment on above:Performed By: #### PP, ESR, CK, ADDONUAPLUS, CRP, CMP, TSH3, CBC, T4F #### [place] [address] [place] #### ALDOLASE, FRANCISCO,URINE, UPE RAND, SPE, RPR W RFX, FRANCISCO SERUM #### [facility] ,Chloride [Moles/volume] in Serum or PlasmaOrdered By: Rajan Moreland on 49-98-9654Auozrwvh [Moles/Vol]101 mmol/W25-453LeskqpvksFayette County Memorial Hospital Comment on above:Performed By: #### PP, ESR, CK, ADDONUAPLUS, CRP, CMP, TSH3, CBC, T4F #### [facility] [address] [place] [address] #### ALDOLASE, FRANCISCO,URINE, UPE RAND, SPE, RPR W RFX, FRANCISCO SERUM #### [facility] ,Chromatin Antibodyon 24-87-3278Oouqejvsk Antibody0.9Ziarmt6.0-0.9The Unc Health Physician GroupComment on above:Result Comment: Performed at: [facility] [id number] Videotape Recording Engineer: Scott Freedman PhD, Phone: [phone] PERFORMED BY: [place] [address] PATHOLOGIST RUBBER FACTORY WORKER LUZ ELENA MEDINA M.D.Performed By: #### PP, ESR, CK, ADDONUAPLUS, CRP, CMP, TSH3, CBC, T4F #### [address] #### ALDOLASE, FRANCISCO,URINE, UPE RAND, SPE, RPR W RFX, FRANCISCO SERUM #### [facility] ,Coagulation Profileon 54-29-3148wGUU Coag (Bld) [Time]25.9 mPjjauc49.1-36.5The Unc Health Physician GroupComment on above:Result Comment: A hematocrit value greater than 55% may lead to inaccurate results in coagulation testing. Patients having hematocrit values >55% require a special collection tube for coagulation studies. Please contact the laboratory at [phone] for redraw instructions. PERFORMED BY: [place] [address] PATHOLOGIST RUBBER FACTORY WORKER LUZ ELENA MEDINA M.D.Performed By: #### PP, ESR, CK, ADDONUAPLUS, CRP, CMP, TSH3, CBC, T4F #### [address] #### ALDOLASE, FRANCISCO,URINE, UPE RAND, SPE, RPR W RFX, FRANCISCO SERUM #### [facility] ,Color of Urine by AutoOrdered By: Rajan Moreland on 78-84-8692Ozgyo (U)Yellow [facility] Allen HospitalComment on above:Order Comment: Name Collection Type:: Clean-Voided MidstreamPerformed By: #### PP, ESR, CK, ADDONUAPLUS, CRP, CMP, TSH3, CBC, T4F #### [address] #### ALDOLASE, FRANCISCO,URINE, UPE RAND, SPE, RPR W RFX, FRANCISCO SERUM #### [facility] ,Complement C3on 38-79-4096Oicnhhwfov C3171 mg/gJKanv71-229Tnm Unc Health Physician GroupComment on above:Result Comment: Performed at: [facility] [id number] Videotape Recording Engineer: Scott Freedman PhD, Phone: [phone] By: #### PP, ESR, CK, ADDONUAPLUS, CRP, CMP, TSH3, CBC, T4F #### [facility] [address] [place] [address] [place] #### ALDOLASE, FRANCISCO,URINE, UPE RAND, SPE, RPR W RFX, FRANCISCO SERUM #### [facility] ,Complement C4on 31-42-7075Ufvbirnhnn C427 mg/cONyveyj76-16Jmj [facility] Health Physician GroupComment on above:Performed By: #### PP, ESR, CK, ADDONUAPLUS, CRP, CMP, TSH3, CBC, T4F #### [address] #### ALDOLASE, FRANCISCO,URINE, UPE RAND, SPE, RPR W RFX, FRANCISCO SERUM #### [facility] ,Complement Total (CH50)on 37-13-9261Sgssifhzla Total (CH50)>60Normal>41The Unc Health Physician GroupComment on above:Result Comment: Age Male Female 1 - 30 [...] determine out of range values. Performed at: [facility] [id number] Videotape Recording Engineer: Scott Freedman PhD, Phone: [phone] PERFORMED BY: [place] [address] PATHOLOGIST RUBBER FACTORY WORKER LUZ ELENA MEDINA M.D.Performed By: #### PP, ESR, CK, ADDONUAPLUS, CRP, CMP, TSH3, CBC, T4F #### [facility] [address] [place] [address] #### ALDOLASE, FRANCISCO,URINE, UPE RAND, SPE, RPR W RFX, FRANCISCO SERUM #### [facility] ,Complete Blood Count Auto Diffon 62-83-9928Neiq Corpuscular HGB Conc33.3 g/dL Oyqnkq21.5-35.6The [facility] Physician [facility] Medical CenterComment on above:Performed By: #### PP, ESR, CK, ADDONUAPLUS, CRP, CMP, TSH3, CBC, T4F #### [facility] [address] [place] [address] #### ALDOLASE, FRANCISCO,URINE, UPE RAND, SPE, RPR W RFX, FRANCISCO SERUM #### [facility] ,NRBC%0.1 /100{WBC}Normal0-0.5The Un[facility] Health Physician GroupComment on above: Performed By: #### PP, ESR, CK, ADDONUAPLUS, CRP, CMP, TSH3, CBC, T4F #### [address] #### ALDOLASE, FRANCISCO,URINE, UPE RAND, SPE, RPR W RFX, FRANCISCO SERUM #### [facility] ,Comprehensive Metabolic Panelon 51-13-6881Xbgqitq [Mass/Vol]4.6 g/dLNormal 3.5-5.7The [facility] Health Physician GroupComment on above:Performed By: #### PP, ESR, CK, ADDONUAPLUS, CRP, CMP, TSH3, CBC, T4F #### [address] #### ALDOLASE, FRANCISCO,URINE, UPE RAND, SPE, RPR W RFX, FRNACISCO SERUM #### [facility] ,GFR/1.73 sq M.predicted MDRD (S/P/Bld) [Vol rate/Area]mL/min/{1.73_m2}NormalThe [facility] Physician [facility] CenterComment on above:Performed By: #### PP, ESR, CK, ADDONUAPLUS, CRP, CMP, TSH3, CBC, T4F #### [address] #### ALDOLASE, FRANCISCO,URINE, UPE RAND, SPE, RPR W RFX, FRANCISCO SERUM #### [facility] ,Creatine kinase [Enzymatic activity/volume] in Serum or PlasmaOrdered By: Rajan oMreland on 35-33-2689WK [Catalytic activity/Vol]128 U/R43-435XadivdhjaFayette County Memorial HospitalComment on above:Result Comment: PERFORMED BY: [place] [address] PATHOLOGIST RUBBER FACTORY WORKER LUZ ELENA MEDINA M.D.Performed By: #### PP, ESR, CK, ADDONUAPLUS, CRP, CMP, TSH3, CBC, T4F #### [address] [place] [address] [place] #### ALDOLASE, FRANCISCO,URINE, UPE RAND, SPE, RPR W RFX, FRANCISCO SERUM #### [facility] ,Creatinine [Mass/volume] in Serum or PlasmaOrdered By: Rajan Moreland on 14-54-8295Lnjclixjqy [Mass/Vol]0.78 mg/dL0.70-1.30[facility] HospitalComment on above:Performed By: #### PP, ESR, CK, ADDONUAPLUS, CRP, CMP, TSH3, CBC, T4F #### [address] #### ALDOLASE, FRANCISCO,URINE, UPE RAND, SPE, RPR W RFX, FRANCISCO SERUM #### [facility] ,Dipstick and Microscopicon 34-42-5374Cieromeytn (U)ClearNormalClearThe Unc Health Physician GroupComment on above:Order Comment: Name Collection Type:: Clean-Voided MidstreamPerformed By: #### PP, ESR, CK, ADDONUAPLUS, CRP, CMP, TSH3, CBC, T4F #### [address] #### ALDOLASE, FRANCISCO,URINE, UPE RAND, SPE, RPR W RFX, FRANCISCO SERUM #### [facility] ,Bacteria,UrineNone SeenNormalNone SeenThe Unc Health Physician GroupComment on above:Order Comment: Name Collection Type:: Clean-Voided MidstreamPerformed By: #### PP, ESR, CK, ADDONUAPLUS, CRP, CMP, TSH3, CBC, T4F #### [facility] [address] [place] [address] #### ALDOLASE, FRANCISCO,URINE, UPE RAND, SPE, RPR W RFX, FRANCISCO SERUM #### [facility] ,Bilirubin,UrineNegativeNormalNegativeThe Unc Health Physician GroupComment on above:Order Comment: Name Collection Type:: Clean-Voided MidstreamPerformed By: #### PP, ESR, CK, ADDONUAPLUS, CRP, CMP, TSH3, CBC, T4F #### [address] #### ALDOLASE, FRANCISCO,URINE, UPE RAND, SPE, RPR W RFX, FRANCISCO SERUM #### [facility] ,Glucose Ql (U)500 mg/dLHighNoUNC Hospitals Hills[facility] Campus Physician GroupComment on above: Order Comment: Name Collection Type:: Clean-Voided MidstreamPerformed By: #### PP, ESR, CK, ADDONUAPLUS, CRP, CMP, TSH3, CBC, T4F #### [address] #### ALDOLASE, FRANCISCO,URINE, UPE RAND, SPE, RPR W RFX, FRANCISCO SERUM #### [facility] ,Hyaline Casts,UrineNone SeenNormal0-8The [facility] Health Physician GroupComment on above:Order Comment: Name Collection Type:: Clean-Voided MidstreamResult Comment: PERFORMED BY: [place] [address] PATHOLOGIST RUBBER FACTORY WORKER LUZ ELENA MEDINA M.D.Performed By: #### PP, ESR, CK, ADDONUAPLUS, CRP, CMP, TSH3, CBC, T4F #### [address] #### ALDOLASE, FRANCISCO,URINE, UPE RAND, SPE, RPR W RFX, FRANCISCO SERUM #### [facility] ,Ketones Ql (U)NegativeNormalNegativeThe [facility] Physician [facility] CenterComment on above:Order Comment: Name Collection Type:: Clean-Voided MidstreamPerformed By: #### PP, ESR, CK, ADDONUAPLUS, CRP, CMP, TSH3, CBC, T4F #### [address] #### ALDOLASE, FRANCISCO,URINE, UPE RAND, SPE, RPR W RFX, FRANCISCO SERUM #### [facility] ,Leukocyte esterase Test strip Ql (U)NegativeNormalNegativeThe Unc Health Physician GroupComment on above:Order Comment: Name Collection Type:: Clean- Voided MidstreamPerformed By: #### PP, ESR, CK, ADDONUAPLUS, CRP, CMP, TSH3, CBC, T4F #### [address] #### ALDOLASE, FRANCISCO,URINE, UPE RAND, SPE, RPR W RFX, FRANCISCO SERUM #### [facility] ,Nitrite,UrineNegativeNormalNegativeThe Unc Health Physician GroupComment on above:Order Comment: Name Collection Type:: Clean-Voided MidstreamPerformed By: #### PP, ESR, CK, ADDONUAPLUS, CRP, CMP, TSH3, CBC, T4F #### [address] #### ALDOLASE, FRANCISCO,URINE, UPE RAND, SPE, RPR W RFX, FRANCISCO SERUM #### [facility] ,Occult Blood,UrineNegativeNormalNegativeThe Unc Health Physician GroupComment on above:Order Comment: Name Collection Type:: Clean-Voided MidstreamPerformed By: #### PP, ESR, CK, ADDONUAPLUS, CRP, CMP, TSH3, CBC, T4F #### [address] #### ALDOLASE, FRANCISCO,URINE, UPE RAND, SPE, RPR W RFX, FRANCISCO SERUM #### [facility] ,Protein,UrineNegativeNormalNegativeThe Unc Health Physician GroupComment on above:Order Comment: Name Collection Type:: Clean-Voided MidstreamPerformed By: #### PP, ESR, CK, ADDONUAPLUS, CRP, CMP, TSH3, CBC, T4F #### [address] #### ALDOLASE, FRANCISCO,URINE, UPE RAND, SPE, RPR W RFX, FRANCISCO SERUM #### [facility] ,RBC LM.HPF (Urine sed) [#/Area]0 /[HPF]Normal0-4The [facility] Comment on above:Order Comment: Name Collection Type:: Clean-Voided Midstream Performed By: #### PP, ESR, CK, ADDONUAPLUS, CRP, CMP, TSH3, CBC, T4F #### [address] #### ALDOLASE, FRANCISCO,URINE, UPE RAND, SPE, RPR W RFX, FRANCISCO SERUM #### [facility] ,Specificy [place],Urine1.436Kjsrpw5.001-1.030The [facility] Comment on above:Order Comment: Name Collection Type:: Clean-Voided Midstream Performed By: #### PP, ESR, CK, ADDONUAPLUS, CRP, CMP, TSH3, CBC, T4F #### [address] #### ALDOLASE, FRANCISCO,URINE, UPE RAND, SPE, RPR W RFX, FRANCISCO SERUM #### [facility] ,Squamous Epithelial Cell,UrineNone SeenNormal0-2The [facility] Comment on above:Order Comment: Name Collection Type:: Clean-Voided Midstream Performed By: #### PP, ESR, CK, ADDONUAPLUS, CRP, CMP, TSH3, CBC, T4F #### [address] #### ALDOLASE, FRANCISCO,URINE, UPE RAND, SPE, RPR W RFX, FRANCISCO SERUM #### [facility] ,Urobilinogen,UrineNormalNormalNormalThe Unc Health Physician GroupComment on above:Order Comment: Name Collection Type:: Clean-Voided MidstreamPerformed By: #### PP, ESR, CK, ADDONUAPLUS, CRP, CMP, TSH3, CBC, T4F #### [address] #### ALDOLASE, FRANCISCO,URINE, UPE RAND, SPE, RPR W RFX, FRANCISCO SERUM #### [facility] ,WBC LM.HPF (Urine sed) [#/Area]0 /[HPF]Normal0-4The [facility] Comment on above:Order Comment: Name Collection Type:: Clean-Voided Midstream Performed By: #### PP, ESR, CK, ADDONUAPLUS, CRP, CMP, TSH3, CBC, T4F #### [address] #### ALDOLASE, FRANCISCO,URINE, UPE RAND, SPE, RPR W RFX, FRANCISCO SERUM #### [facility] ,Erythrocyte Sedimentation Rateon 52-70-1482DSV (Bld) [Velocity]12 mm/hNormal 0-19The [facility] Health Physician GroupComment on above:Result Comment: PERFORMED BY: [place] [address] PATHOLOGIST RUBBER FACTORY WORKER LUZ ELENA MEDINA M.D.Performed By: #### PP, ESR, CK, ADDONUAPLUS, CRP, CMP, TSH3, CBC, T4F #### [address] #### ALDOLASE, FRANCISCO,URINE, UPE RAND, SPE, RPR W RFX, FRANCISCO SERUM #### [facility] ,Erythrocyte distribution width [Ratio] by Automated countOrdered By: Rajna Moreland on 16-36-1730Xvldovspjxh distribution width (RBC) [Ratio]13.5 %12.0-14.8 [facility] HospitalComment on above:Performed By: #### PP, ESR, CK, ADDONUAPLUS, CRP, CMP, TSH3, CBC, T4F #### [address] #### ALDOLASE, FRANCISCO,URINE, UPE RAND, SPE, RPR W RFX, FRANCISCO SERUM #### [facility] ,Erythrocyte sedimentation rate by Photometric methodOrdered By: Rajan Moreland on 47-91-3084NLU Photometric method (Bld) [Velocity]12 mm/hr0-19[facility] HospitalErythrocytes [#/area] in Urine sediment by Automated countOrdered By: Rajan Moreland on 60-52-8758EIR Auto (Urine sed) [#/Area]0-1 [HPF]0-4FMarietta Memorial HospitalErythrocytes [#/volume] in Blood by Automated countOrdered By: Rajan Moreland on 57-67-1430NBB (Bld) [#/Vol]5.36 10*6/uL3.90-5.60[facility] HospitalComment on above:Performed By: #### PP, ESR, CK, ADDONUAPLUS, CRP, CMP, TSH3, CBC, T4F #### [facility] [address] [place] [address] #### ALDOLASE, FRANCISCO,URINE, UPE RAND, SPE, RPR W RFX, FRANCISCO SERUM #### [facility] ,Gamma globulin/Protein.total in 24 hour Urine by ElectrophoresisOrdered By: Rajan Moreland on 90-10-0014Ttesz globulin Elph (24H U) [Mass fraction]20.2 %. [facility] HospitalGlucose [Mass/volume] in Serum or PlasmaOrdered By: Rajan Moreland on 77-94-6574Dnbgunv [Mass/Vol]280 mg/kW55-082AmctfglqmFayette County Memorial HospitalComment on above:ADA recommended reference rangeRandom Glucose Reference Range is dependent on time and content of last meal. Glucose of more than 200 mg/dL in a nonstressed, ambulatory subject supports the diagnosisof Diabetes Mellitus.Result Comment: Random Glucose Reference Range is dependent on time and content of last meal. Glucose of more than 200 mg/dL in a nonstressed, ambulatory subject supports the diagnosis of Diabetes Mellitus. ADA recommended reference rangePerformed By: #### PP, ESR, CK, ADDONUAPLUS, CRP, CMP, TSH3, CBC, T4F #### [facility] [address] [place] [address] #### ALDOLASE, FRANCISCO,URINE, UPE RAND, SPE, RPR W RFX, FRANCISCO SERUM #### [facility] ,Hematocrit [Volume Fraction] of Blood by Automated countOrdered By: Rajan Moreland on 24-83-0153Lnyxvdhmeg (Bld) [Volume fraction]43.6 %38.8-50.0[facility] HospitalComment on above:Performed By: #### PP, ESR, CK, ADDONUAPLUS, CRP, CMP, TSH3, CBC, T4F #### [facility] [address] [place] [address] #### ALDOLASE, FRANCISCO,URINE, UPE RAND, SPE, RPR W RFX, FRANCISCO SERUM #### [facility] ,Hemoglobin [Mass/volume] in BloodOrdered By: Rajan Moreland on 08-16-2023 Hemoglobin (Bld) [Mass/Vol]14.6 g/dL13.0-17.0[facility] Comment on above:Performed By: #### PP, ESR, CK, ADDONUAPLUS, CRP, CMP, TSH3, CBC, T4F #### [facility] [address] [place] [address] #### ALDOLASE, FRANCISCO,URINE, UPE RAND, SPE, RPR W RFX, FRANCISCO SERUM #### [facility] ,INR in Platelet poor plasma by Coagulation assayOrdered By: Rajan Moreland on 16-10-0186HNK Coag (PPP) [Relative time]0.9 {INR}[facility] HospitalComment on above:INR Therapeutic Range A) Pre- and Peroperative OAT started two weeks before surgery. NOT HIP SURGERY: 1.5 - 2.5 HIP SURGERY: 2 - 3B) Primary and secondary prevention of venous THROMBOSIS: 2 - 3C) Active venous thrombosis, pulmonary embolismand prevention of recurrent venous thrombosis: 2 - 3D) Prevention of arterial thromboembolismincluding patients with mechanical heart valves: 3 - 4.5Result Comment: INR Therapeutic Range A) Pre- and [...] patients with mechanical heart valves: 3 - 4.5Performed By: #### PP, ESR, CK, ADDONUAPLUS, CRP, CMP, TSH3, CBC, T4F #### [facility] [address] #### ALDOLASE, FRANCISCO,URINE, UPE RAND, SPE, RPR W RFX, FRANCISCO SERUM #### [facility] ,IgA [Mass/volume] in Serum or PlasmaOrdered By: Rajan Moreland on 94-88-6395RvY [Mass/Vol]239 mg/rL99-758ZleyzrqfyFayette County Memorial HospitalIgG [Mass/volume] in Serum or PlasmaOrdered By: Rajan Moreland on 65-31-1337WnY [Mass/Vol]1196 mg/dL 603-1613F[facility] Memorial HospitalIgM [Mass/volume] in Serum or Plasma Ordered By: Rajan Moreland on 79-21-5411SdO [Mass/Vol]141 mg/wP68-785VutlxatghFayette County Memorial HospitalComment on above:Performed at: [facility] [id number] Director: Scott Freedman PhD, Phone: [phone] for UrineOrdered By: Rajan Moreland on 08-16-2023 Interpretation Immunofixation (U) [Interp]See comment.[facility] HospitalComment on above:No monoclonality detected.Performed at: [facility] [id number] Director: Scott Freedman PhD, Phone: [phone], (FRANCISCO), Urineon [id number], (FRANCISCO), UrineNormal.The [facility] Physician GroupComment on above:Result Comment: No monoclonality detected. Performed at: [facility] [address] [id number] Videotape Recording Engineer: Scott Freedman PhD, Phone: [phone] By: #### PP, ESR, CK, ADDONUAPLUS, CRP, CMP, TSH3, CBC, T4F #### [address] #### ALDOLASE, [place]ANCIS[place],URINE, UPE RAND, SPE, RPR W RFX, [place]ANC[place]CO SERUM #### [facility] ,Immunofixation,Serumon [id number], SerumNormal.The [facility] Health Physician GroupComment on above:Result Comment: No monoclonality detected. Performed By: #### PP, ESR, CK, ADDONUAPLUS, CRP, CMP, TSH3, CBC, T4F #### [address] #### ALDOLASE, FRANCISCO,URINE, UPE RAND, SPE, RPR W RFX, [place] SERUM #### [facility] ,Immunoglobulin A, Lpeqj568 mg/wZOwjddz11-645Kty [facility] Comment on above:Performed By: #### PP, ESR, CK, ADDONUAPLUS, CRP, CMP, TSH3, CBC, T4F #### [address] #### ALDOLASE, FRANCISCO,URINE, UPE RAND, SPE, RPR W RFX, FRANCISCO SERUM #### [facility] ,Immunoglobulin G1196 mg/lKLaxbnz554-6057Mae [facility] Physician GroupComment on above:Performed By: #### PP, ESR, CK, ADDONUAPLUS, CRP, CMP, TSH3, CBC, T4F #### [facility] [address] [place] [address] [place] #### ALDOLASE, FRANCISCO,URINE, UPE RAND, SPE, RPR W RFX, FRANCISCO SERUM #### [facility] ,Immunoglobulin M, Kzzkz748 mg/xTRpoftk59-957Nlt [facility] Comment on above:Result Comment: Performed at: - [facility] [address] [id number] Videotape Recording Engineer: Scott Freedman PhD, Phone: [phone] By: #### PP, ESR, CK, ADDONUAPLUS, CRP, CMP, TSH3, CBC, T4F #### [facility] [address] [place] [address] #### ALDOLASE, FRANCISCO,URINE, UPE RAND, SPE, RPR W RFX, FRANCISCO SERUM #### [facility] ,Ketones Auto test strip (U) [Mass/Vol]Ordered By: Rajan Moreland on 08-16-2023 Ketones (U) [Mass/Vol]NegativeNegativeFayette County Memorial Hospital Laboratory - UrinalysisOrdered By: Rajan Moreland on 40-16-7383Cyiioqf casts LM Ql (Urine sed)None seen [LPF]0-8[facility] HospitalLeukocytes [#/area] in Urine sediment by Automated countOrdered By: Rajan Moreland on 21-17-4607UEI Auto (Urine sed) [#/Area]0-1 [HPF]0-4FMarietta Memorial HospitalLeukocytes [#/volume] corrected for nucleated erythrocytes in Blood by Automated counOrdered By: Rajan Moreland on 43-27-7981FIH corrected for nucl RBC Auto (Bld) [#/Vol]8.1 10*3/uL4.1-10.5FMarietta Memorial Hospital Leukocytes [#/volume] in Blood by Automated countOrdered By: Rajan Moreland on 58-51-0244OFO (Bld) [#/Vol]8.1 10*3/uL4.1-10.5FMarietta Memorial Hospital Comment on above:Performed By: #### PP, ESR, CK, ADDONUAPLUS, CRP, CMP, TSH3, CBC, T4F #### [facility] [address] [place] [address] [place] #### ALDOLASE, FRANCISCO,URINE, UPE RAND, SPE, RPR W RFX, FRANCISCO SERUM #### [facility] ,Lupus Anticoagulant Compon 20-44-4649Abfwxp Prothrombin Time (dPt)32.7Normal 0.0-47.6The [facility] Physician GroupComment on above:Performed By: #### LUPANTCOAG #### [facility] ,dPT Confirm Ratio1.00Krwxwu9.00-1.34The [facility] Health Physician GroupComment on above:Performed By: #### LUPANTCOAG #### [facility] ,DRVVT Lupus31.8Exewey8.0-47.0The [facility] Health Physician GroupComment on above: Performed By: #### LUPANTCOAG #### [facility] ,InterpretationComment:Normal.The [facility] Health Physician GroupComment on above: Result Comment: No lupus anticoagulant was detected. Performed at: [facility] [id number] Videotape Recording Engineer: Blane Frazier MD, Phone: [phone] PERFORMED BY: [address] [address] PATHOLOGIST RUBBER FACTORY WORKER LUZ ELENA MEDINA M.D.Performed By: #### LUPANTCOAG #### [facility] ,PTT-LA28.6Tyhllb0.0-43.5The [facility] Health Physician GroupComment on above:Performed By: #### LUPANTCOAG #### [facility] ,Thrombin Time18.4Biytmb2.0-23.0The [facility] Health Physician GroupComment on above: Performed By: #### LUPANTCOAG #### [facility] ,Lupus anticoagulant [Interpretation] in Platelet poor plasmaOrdered By: Rajan Moreland on 88-93-0175Dmsbj anticoagulant (PPP) [Interp]Comment:.[facility] HospitalComment on above:No lupus anticoagulant was detected.Performed at: [facility] [address] [id number] Director: Blnae Frazier MD, Phone: [phone] [#/volume] in Blood by Automated countOrdered By: Rajan Moreland on 08-16-2023 Lymphocytes (Bld) [#/Vol]1.0 10*3/uL1.00-4.8[facility] Comment on above:Performed By: #### PP, ESR, CK, ADDONUAPLUS, CRP, CMP, TSH3, CBC, T4F #### [facility] [address] [place] [address] [place] #### ALDOLASE, FRANCISCO,URINE, UPE RAND, SPE, RPR W RFX, FRANCISCO SERUM #### [facility] ,Lymphocytes/100 leukocytes in Blood by Automated countOrdered By: Rajan Moreland on 89-33-9020Wgnygpecwxq/100 WBC (Bld)12.8 %.F[facility] HospitalComment on above:Performed By: #### PP, ESR, CK, ADDONUAPLUS, CRP, CMP, TSH3, CBC, T4F #### [facility] [address] [place] [address] [place] #### ALDOLASE, FRANCISCO,URINE, UPE RAND, SPE, RPR W RFX, FRANCISCO SERUM #### [facility] ,MCH [Entitic mass] by Automated countOrdered By: Rajan Moreland on 08-16-2023 MCH (RBC) [Entitic mass]27.1 pg27.5-35.2FMarietta Memorial HospitalComment on above:Performed By: #### PP, ESR, CK, ADDONUAPLUS, CRP, CMP, TSH3, CBC, T4F #### [place] [address] [place] #### ALDOLASE, FRANCISCO,URINE, UPE RAND, SPE, RPR W RFX, FRANCISCO SERUM #### [facility] ,MCHC Auto (RBC) [Mass/Vol]Ordered By: Rajan Moreland on 63-70-4441RHUO (RBC) [Mass/Vol]33.3 g/dL32.5-35.6FMarietta Memorial HospitalMCV [Entitic volume] by Automated countOrdered By: Rajan Moreland on 62-06-9350BNY (RBC) [Entitic vol]81.4 fL83.5-101F[facility] HospitalComment on above: Performed By: #### PP, ESR, CK, ADDONUAPLUS, CRP, CMP, TSH3, CBC, T4F #### [address] #### ALDOLASE, FRANCISCO,URINE, UPE RAND, SPE, RPR W RFX, FRANCISCO SERUM #### [facility] ,Neutrophils [#/volume] in Blood by Automated countOrdered By: Rajan Moreland on 41-97-4620Pfexwbnefdc (Bld) [#/Vol]6.5 10*3/uL1.8-7.7FMarietta Memorial HospitalComment on above:Performed By: #### PP, ESR, CK, ADDONUAPLUS, CRP, CMP, TSH3, CBC, T4F #### [facility] [address] [place] [address] [place] #### ALDOLASE, FRANCISCO,URINE, UPE RAND, SPE, RPR W RFX, FRANCISCO SERUM #### [facility] ,Nitrite Test strip Ql (U)Ordered By: Rajan Moreland on 54-00-3161Perhqid Ql (U) NegativeNegativeFayette County Memorial HospitalNo Panel InformationOrdered By: Rajan Pascualrow on 87-38-8121Gmeciovqq GFR (CKD-EPI)> 60.0 mL/MinFayette County Memorial HospitalPharmacy Creatinine Clearance (ChemN/[facility] HospitalProtein Electrophoresis M-SpikeNot observed g/dLNot Observed [facility] HospitalProtein Electrophoresis NoteSee comment. [facility] HospitalComment on above:Protein electrophoresis scan will follow via computer,mail, or director client services delivery.Serum ImmunofixationSee comment.[facility] HospitalComment on above:No monoclonality detected.Total Complement (CH50)>60 U/mL>41[facility] Comment on above:Age Male Female 1 - 30 days Not Estab. Not Estab. 31 days - 6 months >32 >20 7 months - 17 years >39 >39 >17 years >41 >41 NOTE: The adult ( >17 years ) reference intervalrange is used to flag abnormals on this report. If the patient is 17 years old or younger, use the table above to determine out of range values.Performed at: [address] [id number] Director: Scott Freedman PhD, Phone: [phone] Random Prot Electrophor NoteSee comment.[facility] Comment on above:Protein electrophoresis scan will follow via computer,mail, or director client services delivery.Performed at: [address] [id number] Director: Scott Freedman PhD, Phone: [phone] erythrocytes [Presence] in Blood by Automated countOrdered By: Rajan Moreland on 50-96-4251Ctgfqpkge RBC Auto Ql (Bld)0.1 /100{WBC}0-0.5FMarietta Memorial HospitalPlatelet mean volume [Entitic volume] in Blood by Automated count Ordered By: Rajan Moreland on 28-64-4496Vroccoju mean volume (Bld) [Entitic vol] 8.1 fL6.6-10.1FMarietta Memorial HospitalComment on above:Performed By: #### PP, ESR, CK, ADDONUAPLUS, CRP, CMP, TSH3, CBC, T4F #### [facility] [address] #### ALDOLASE, FRANCISCO,URINE, UPE RAND, SPE, RPR W RFX, FRANCISCO SERUM #### [facility] ,Platelet poor plasma ratio of lupus anticoagulant-sensitive activated partial thromboOrdered By: Rajan Moreland on 32-10-8676gQSG.lupus sensitive.excess phospholipid actual/normal Coag (PPP) [Relative time]32.7 sec0.0-47.6FMarietta Memorial HospitalPlatelets [#/volume] in Blood by Automated countOrdered By: Rajan Moreland on 74-83-4299Tnscykcdk (Bld) [#/Vol]299 10*3/uG194-337 [facility] HospitalComment on above:Performed By: #### PP, ESR, CK, ADDONUAPLUS, CRP, CMP, TSH3, CBC, T4F #### [facility] [address] [place] [address] #### ALDOLASE, FRANCISCO,URINE, UPE RAND, SPE, RPR W RFX, FRANCISCO SERUM #### [facility] ,Potassium [Moles/volume] in Serum or PlasmaOrdered By: Rajan Moreland on 62-61-8742Ycvbfvsid [Moles/Vol]4.4 mmol/L3.5-5.1FMarietta Memorial HospitalComment on above:Performed By: #### PP, ESR, CK, ADDONUAPLUS, CRP, CMP, TSH3, CBC, T4F #### [facility] [address] [place] [address] #### ALDOLASE, FRANCISCO,URINE, UPE RAND, SPE, RPR W RFX, FRANCISCO SERUM #### [facility] ,Protein Auto test strip (U) [Mass/Vol]Ordered By: Rajan Moreland on 08-16-2023 Protein (U) [Mass/Vol]NegativeNegativeFayette County Memorial HospitalProtein Electro, Random Urineon 59-78-7190Drfqqlv, Urine31.5 %Normal.The [facility] Physician GroupComment on above:Performed By: #### PP, ESR, CK, ADDONUAPLUS, CRP, CMP, TSH3, CBC, T4F #### [facility] [address] [place] [address] [place] #### ALDOLASE, FRANCISCO,URINE, UPE RAND, SPE, RPR W RFX, FRANCISCO SERUM #### [facility] ,Pydhz-9-Iwjgkbmx, Urine4.2 %Normal.The [facility] Health Physician GroupComment on above:Performed By: #### PP, ESR, CK, ADDONUAPLUS, CRP, CMP, TSH3, CBC, T4F #### [facility] [address] [place] [address] [place] #### ALDOLASE, FRANCISCO,URINE, UPE RAND, SPE, RPR W RFX, FRANCISCO SERUM #### [facility] ,Nnvqp-0-Hybjddlt, Urine21.3 %Normal.The [facility] Health Physician GroupComment on above:Performed By: #### PP, ESR, CK, ADDONUAPLUS, CRP, CMP, TSH3, CBC, T4F #### [address] #### ALDOLASE, FRANCISCO,URINE, UPE RAND, SPE, RPR W RFX, FRANCISCO SERUM #### [facility] ,Beta Globulin, Urine22.8 %Normal.The [facility] Health Physician GroupComment on above: Performed By: #### PP, ESR, CK, ADDONUAPLUS, CRP, CMP, TSH3, CBC, T4F #### [address] #### ALDOLASE, FRANCISCO,URINE, UPE RAND, SPE, RPR W RFX, FRANCISCO SERUM #### [facility] ,Gamma Globulin, Urine20.2 %Normal.The [facility] Health Phys[facility] GroupComment on above:Performed By: #### PP, ESR, CK, ADDONUAPLUS, CRP, CMP, TSH3, CBC, T4F #### [address] #### ALDOLASE, FRANCISCO,URINE, UPE RAND, SPE, RPR W RFX, FRANCISCO SERUM #### [facility] ,M-Ancelmo %Not ObservedNormalNot ObservedThe [facility]c Health Physician GroupComment on above:Performed By: #### PP, ESR, CK, ADDONUAPLUS, CRP, CMP, TSH3, CBC, T4F #### [address] #### ALDOLASE, FRANCISCO,URINE, UPE RAND, SPE, RPR W RFX, FRANCISCO SERUM #### [facility] ,Please Note:Normal.The [facility] Health Physician GroupComment on above:Result Comment: Protein electrophoresis scan will follow via computer, mail, or director client services delivery. Performed at: [facility] [id number] Videotape Recording Engineer: Scott Freedman PhD, Phone: [phone] PERFORMED BY: [place] [address] PATHOLOGIST RUBBER FACTORY WORKER LUZ ELENA MEDINA M.D.Performed By: #### PP, ESR, CK, ADDONUAPLUS, CRP, CMP, TSH3, CBC, T4F #### [address] #### ALDOLASE, FRANCISCO,URINE, UPE RAND, SPE, RPR W RFX, FRANCISCO SERUM #### [facility] ,Protein Electro, Random UrineOrdered By: Rajan Moreland on 33-15-1587Poosgmz (U) [Mass/Vol]8.8 mg/dLNot Estab.[facility] HospitalComment on above:Performed By: #### PP, ESR, CK, ADDONUAPLUS, CRP, CMP, TSH3, CBC, T4F #### [address] #### ALDOLASE, FRANCISCO,URINE, UPE RAND, SPE, RPR W RFX, FRANCISCO SERUM #### [facility] ,Protein Electrophoresis, SerumOrdered By: Rajan Moreland on 79-80-0963Gwmdvya [Mass/Vol]4.2 g/dL2.9-4.4FMarietta Memorial HospitalComment on above: Performed By: #### PP, ESR, CK, ADDONUAPLUS, CRP, CMP, TSH3, CBC, T4F #### [place] [address] [place] #### ALDOLASE, FRANCISCO,URINE, UPE RAND, SPE, RPR W RFX, FRANCISCO SERUM #### [facility] ,Albumin/Globulin [Mass ratio]1.3 {ratio}0.7-1.7FMarietta Memorial HospitalComment on above:Performed By: #### PP, ESR, CK, ADDONUAPLUS, CRP, CMP, TSH3, CBC, T4F #### [facility] [address] [place] [address] [place] #### ALDOLASE, FRANCISCO,URINE, UPE RAND, SPE, RPR W RFX, FRANCISCO SERUM #### [facility] ,Globulin (S) [Mass/Vol]3.3 g/dL2.2-3.9[facility] HospitalComment on above:Performed By: #### PP, ESR, CK, ADDONUAPLUS, CRP, CMP, TSH3, CBC, T4F #### [facility] [address] [place] [address] [place] #### ALDOLASE, FRANCISCO,URINE, UPE RAND, SPE, RPR W RFX, FRANCISCO SERUM #### [facility] ,Protein [Mass/Vol]7.5 g/dL6.0-8.5FMarietta Memorial HospitalComment on above:Performed By: #### PP, ESR, CK, ADDONUAPLUS, CRP, CMP, TSH3, CBC, T4F #### [facility] [address] #### ALDOLASE, FRANCISCO,URINE, UPE RAND, SPE, RPR W RFX, FRANCISCO SERUM #### [facility] ,Protein Electrophoresis, Serumon 86-78-8453Ufqug-1-Globulin0.3 g/dLNormal 0.0-0.4The [facility] Health Physician GroupComment on above:Performed By: #### PP, ESR, CK, ADDONUAPLUS, CRP, CMP, TSH3, CBC, T4F #### [facility] [address] [place] [address] [place] #### ALDOLASE, FRANCISCO,URINE, UPE RAND, SPE, RPR W RFX, FRANCISCO SERUM #### [facility] ,Sbmmc-4-Jydjalbg9.7 g/dLNormal0.4-1.0The [facility] Health Physician GroupComment on above:Performed By: #### PP, ESR, CK, ADDONUAPLUS, CRP, CMP, TSH3, CBC, T4F #### [address] #### ALDOLASE, FRANCISCO,URINE, UPE RAND, SPE, RPR W RFX, FRANCISCO SERUM #### [facility] ,Beta Globulin1.1 g/dLNormal0.7-1.3The [facility] Health Physician GroupComment on above:Performed By: #### PP, ESR, CK, ADDONUAPLUS, CRP, CMP, TSH3, CBC, T4F #### [address] #### ALDOLASE, FRANCISCO,URINE, UPE RAND, SPE, RPR W RFX, FRANCISCO SERUM #### [facility] ,Gamma Globulin1.2 g/dLNormal0.4-1.8The [facility] Health Physician GroupComment on above:Performed By: #### PP, ESR, CK, ADDONUAPLUS, CRP, CMP, TSH3, CBC, T4F #### [address] #### ALDOLASE, FRANCISCO,URINE, UPE RAND, SPE, RPR W RFX, FRANCISCO SERUM #### [facility] ,M-SpikeNot ObservedNormalNot ObservedThe Unc Health Physician GroupComment on above:Performed By: #### PP, ESR, CK, ADDONUAPLUS, CRP, CMP, TSH3, CBC, T4F #### [address] #### ALDOLASE, FRANCISCO,URINE, UPE RAND, SPE, RPR W RFX, FRANCISCO SERUM #### [facility] ,SPE-NoteNormal.The [facility] Health Physician GroupComment on above:Result Comment: Protein electrophoresis scan will follow via computer, mail, or director client services delivery.Performed By: #### PP, ESR, CK, ADDONUAPLUS, CRP, CMP, TSH3, CBC, T4F #### [address] [place] [address] [place] #### ALDOLASE, FRANCISCO,URINE, UPE RAND, SPE, RPR W RFX, FRANCISCO SERUM #### [facility] ,Protein [Mass/volume] in Serum or PlasmaOrdered By: Rajan Moreland on 27-23-7069Rkvaboa [Mass/Vol]7.6 g/dL6.4-8.9[facility] Comment on above:Performed By: #### PP, ESR, CK, ADDONUAPLUS, CRP, CMP, TSH3, CBC, T4F #### [address] #### ALDOLASE, FRANCISCO,URINE, UPE RAND, SPE, RPR W RFX, FRANCISCO SERUM #### [facility] ,Protein.monoclonal/Protein.total in 24 hour Urine by ElectrophoresisOrdered By: Rajan Moreland on 12-38-4573Nzrvqiq.monoclonal Elph (24H U) [Mass fraction]Not observed %Not ObservedFayette County Memorial HospitalProthrombin time (PT) Ordered By: Rajan Pascualrow on 87-85-8127VM Coag (PPP) [Time]9.8 s9.0-12.9 [facility] HospitalComment on above:A hematocrit value greater than 55% may lead to inaccurate results in coagulation testing. Patientshaving hematocrit values >55% require a special collection tube for coagulation studies. Please contact the laboratory at [phone] for redraw instructions. Result Comment: A hematocrit value greater than 55% may lead to inaccurate results in coagulation testing. Patients having hematocrit values >55% require a special collection tube for coagulation studies. Please contact the laboratory at [phone] for redraw instructions.Performed By: #### PP, ESR, CK, ADDONUAPLUS, CRP, CMP, TSH3, CBC, T4F #### [address] #### ALDOLASE, FRANCISCO,URINE, UPE RAND, SPE, RPR W RFX, FRANCISCO SERUM #### [facility] ,RPR w/rfx to Quant TP Abson 42-85-1176SYM, Rfx Quant RPRNon-ReactiveNormalNon ReactiveThe Unc Health Physician GroupComment on above:Result Comment: Performed at: - [facility] [address] [place], [place] [id number] Videotape Recording Engineer: Scott Freedman PhD, Phone: [phone] PERFORMED BY: [place] [address] PATHOLOGIST RUBBER FACTORY WORKER LUZ ELENA MEDINA M.D.Performed By: #### PP, ESR, CK, ADDONUAPLUS, CRP, CMP, TSH3, CBC, T4F #### [address] #### ALDOLASE, FRANCISCO,URINE, UPE RAND, SPE, RPR W RFX, FRANCISCO SERUM #### [facility] ,Reagin Ab [Presence] in Serum by RPROrdered By: Rajan Moreland on 08-16-2023 Reagin Ab RPR Ql (S)Non-ReactiveNon ReactiveFayette County Memorial Hospital Comment on above:Performed at: - [facility] DenvilleVcbkgh[address] [place], [place] [id number] Director: Scott Freedman PhD, Phone: [phone] dilute Emory's viper venom time (DRVVT) with reflex to confirmatory testOrdered By: Rajan Moreland on 79-46-4350sMZDH Coag (PPP) [Time]31.4 s0.0-47.0St. John of God Hospitalcreening lupus anticoagulant-sensitive activated partial thromboplastin time (aPTT)Ordered By: Rajan Moreland on 83-51-2662rVCR.lupus sensitive Coag (PPP) [Time]28.4 sec0.0-43.5FMarietta Memorial Hospital Serum globulin measurement by calculation (mass/volume)Ordered By: Rajan Moreland on 65-21-3131Gpswtdqt (S) [Mass/Vol]3.0 g/dLFayette County Memorial HospitalComment on above:Performed By: #### PP, ESR, CK, ADDONUAPLUS, CRP, CMP, TSH3, CBC, T4F #### [facility] [address] [place] [address] [place] #### ALDOLASE, FRANCISCO,URINE, UPE RAND, SPE, RPR W RFX, FRANCISCO SERUM #### [facility] ,Serum homogeneous pattern antinuclear antibody (TONJA) titerOrdered By: Rajan Moreland on 24-42-3182Dyxfileayu nuclear Ab pattern (S) [Titer]N/AFOhioHealth Van Wert Hospitalerum nuclear antibody titerOrdered By: Rajan Moreland on 44-68-5518Hyumark Ab (S) [Titer]Negative.[facility] Comment on above:Negative <1:80 Borderline 1:80 Positive >1:80ICAP nomenclature: AC-0For more information about Hep-2 cell patterns useANApatterns.org, the official website for theInternational Consensus on Antinuclear Antibody (TONJA)Patterns (ICAP).Performed at: [place] [id number] Director: Scott Freedman PhD, Phone: [phone] or plasma albumin/globulin mass ratioOrdered By: Rajan Moreland on 08-16-2023 Albumin/Globulin [Mass ratio]1.5 {ratio}[facility] HospitalComment on above:Performed By: #### PP, ESR, CK, ADDONUAPLUS, CRP, CMP, TSH3, CBC, T4F #### [facility] [address] [place] [address] [place] #### ALDOLASE, FRANCISCO,URINE, UPE RAND, SPE, RPR W RFX, FRANCISCO SERUM #### [facility] ,Serum or plasma alpha 1 globulin measurement by electrophoresis (mass/volume) Ordered By: Rajan Moreland on 46-29-0864Asakm 1 globulin Elph [Mass/Vol]0.3 g/dL 0.0-0.4FOhioHealth Van Wert Hospitalerum or plasma alpha 2 globulin measurement by electrophoresis (mass/volume)Ordered By: Rajan Moreland on 59-74-8878Sfojl 2 globulin Elph [Mass/Vol]0.7 g/dL0.4-1.0St. John of God Hospitalerum or plasma anion gap determinationOrdered By: Rajan Moreland on 87-24-7445Spfmw gap [Moles/Vol]10.8 mmol/L6.0-15.0[facility] HospitalComment on above:Performed By: #### PP, ESR, CK, ADDONUAPLUS, CRP, CMP, TSH3, CBC, T4F #### [facility] [address] #### ALDOLASE, FRANCISCO,URINE, UPE RAND, SPE, RPR W RFX, FRANCISCO SERUM #### [facility] ,Serum or plasma beta globulin measurement by electrophoresis (mass/volume) Ordered By: Rajan Moreland on 03-93-9670Yxpo globulin Elph [Mass/Vol]1.1 g/dL 0.7-1.3FOhioHealth Van Wert Hospitalerum or plasma chromatin antibody assay (units/volume)Ordered By: Rajan Moreland on 57-31-9993Istfkbdkd Ab Qn0.2 AI 0.0-0.9[facility] HospitalComment on above:Performed at: [facility] [id number] Director: Scott Freedman PhD, Phone: [phone] or plasma complement C3 measurement (mass/volume)Ordered By: Rajan Moreland on 13-99-8729Hgpipbigqh C3 [Mass/Vol]171 mg/aU99-350MgrpcglloFayette County Memorial HospitalComment on above:Performed at: [facility] [id number] Director: Scott Freedman PhD, Phone: [phone] or plasma complement C4 measurement (mass/volume)Ordered By: Rajan Moreland on 76-47-6937Qmiczpxtjh C4 [Mass/Vol]27 mg/yO31-87YatxfpcbjSt. John of God Hospitalerum or plasma gamma globulin measurement by electrophoresis (mass/volume)Ordered By: Rajan Moreland on 30-94-9382Mkdsw globulin Elph [Mass/Vol]1.2 g/dL0.4-1.8St. [facility] of God Hospitalerum or plasma thyroglobulin antibody assay (units/volume)Ordered By: Rajan Moreland on 45-87-8573Bptqqhyovbkmu Ab Qn[IU]/mL0.0-0.9[facility] HospitalComment on above:Thyroglobulin Antibody measured by Angel CoulterMethodologyIt should be noted that the presence of thyroglobulinantibodies may not be pathogenic nor diagnostic, especiallyat very low levels. The assay stem lead former has found thatfour percent of individuals without evidence of thyroiddisease or autoimmunity will have positive TgAb levels upto 4 IU/mL.Performed at: [facility] [id number] Director: Scott Freedman PhD, Phone: [phone] or plasma thyroperoxidase antibody assay (units/volume)Ordered By: Rajan Moreland on 65-59-0877MQP Ab Qn14 [IU]/mL0-34[facility] HospitalComment on above:Performed at: [facility] [id number] Director: Scott Freedman PhD, Phone: [phone] [Moles/volume] in Serum or PlasmaOrdered By: Rajan Moreland on 09-31-9879Xumorl [Moles/Vol]137 mmol/M329-509SmjmznjtkFayette County Memorial HospitalComment on above:Performed By: #### PP, ESR, CK, ADDONUAPLUS, CRP, CMP, TSH3, CBC, T4F #### [address] #### ALDOLASE, FRANCISCO,URINE, UPE RAND, SPE, RPR W RFX, FRANCISCO SERUM #### [facility] ,Specific gravity Auto test strip (U) [Rel density]Ordered By: Rajan Moreland on 06-45-1600Rdlqqkzm gravity (U) [Rel density]1.0241.001-1.030St. John of God Hospitalquamous epithelial cells detection in urine sediment by light microscopyOrdered By: Rajan Moreland on 28-36-9382Rnhqqvinhk cells.squamous LM Ql (Urine sed)None seen [HPF]0-2FMarietta Memorial HospitalTT plasOrdered By: Rajan Aniceto on 30-48-2812Jwjpctkr time Coag (PPP) [Time]18.8 sec0.0-23.0 [facility] HospitalThyroid Peroxidase Antibodieson 08-16-2023 Thyroid Peroxidase Rkkmtrpwcj37Rqmzzc6-80Jhs [facility] Health Physician GroupComment on above:Result Comment: Performed at: - [facility] [address] [id number] Videotape Recording Engineer: Scott Freedman PhD, Phone: [phone] By: #### PP, ESR, CK, ADDONUAPLUS, CRP, CMP, TSH3, CBC, T4F #### [facility] [address] [place] [address] #### ALDOLASE, FRANCISCO,URINE, UPE RAND, SPE, RPR W RFX, FRANCISCO SERUM #### [facility] ,Thyrotropin [Units/volume] in Serum or PlasmaOrdered By: Rajan Moreland on 22-15-1257KKX Qn1.48 m[IU]/L0.45-5.33[facility] HospitalComment on above:Result Comment: PERFORMED BY: [place] [address] PATHOLOGIST RUBBER FACTORY WORKER LUZ ELENA MEDINA M.D.Performed By: #### PP, ESR, CK, ADDONUAPLUS, CRP, CMP, TSH3, CBC, T4F #### [address] #### ALDOLASE, FRANCISCO,URINE, UPE RAND, SPE, RPR W RFX, FRANCISCO SERUM #### [facility] ,Thyroxine (T4) free [Mass/volume] in Serum or PlasmaOrdered By: Rajan Moreland on [id number] T4 [Mass/Vol]0.86 ng/dL0.61-1.12[facility] HospitalComment on above:Performed By: #### PP, ESR, CK, ADDONUAPLUS, CRP, CMP, TSH3, CBC, T4F #### [place] [id number] [place] #### ALDOLASE, FRANCISCO,URINE, UPE RAND, SPE, RPR W RFX, FRANCISCO SERUM #### [facility] ,Urea nitrogen [Mass/volume] in Serum or PlasmaOrdered By: Rajan Moreland on 83-90-9494Trjn nitrogen [Mass/Vol]14 mg/dL7-25[facility] Comment on above:Performed By: #### PP, ESR, CK, ADDONUAPLUS, CRP, CMP, TSH3, CBC, T4F #### [facility] [address] #### ALDOLASE, FRANCISCO,URINE, UPE RAND, SPE, RPR W RFX, FRANCISCO SERUM #### [facility] ,Urine alpha 1 globulin/total protein by electrophoresisOrdered By: Rajan Moreland on 36-24-5736Snrsh 1 globulin Elph (U) [Mass fraction]4.2 %.[facility] HospitalUrine alpha 2 globulin/total protein ratio by electrophoresisOrdered By: Rajan Moreland on 12-42-4177Tlvkp 2 globulin Elph (U) [Mass fraction]21.3 %.[facility] HospitalUrine beta globulin measurement by electrophoresis (mass/volume)Ordered By: Rajan Moreland on 17-84-4251Katg globulin Elph (U) [Mass/Vol]22.8 %.[facility] HospitalUrine clarity by refractometry automatedOrdered By: Rajan Moreland on 77-08-6847Aqckhsw Refractometry automated (U)ClearCleSheltering Arms HospitalUrine glucose measurement by automated test strip (mass/volume) Ordered By: Rajan Moreland on 51-02-7862Lwsadyl Auto test strip (U) [Mass/Vol] 500 mg/dLNormalFayette County Memorial HospitalUrine hemoglobin detection by automated test stripOrdered By: Rajan Moreland on 22-46-7814Cjjdmfcorh Auto test strip Ql (U)NegativeNegDayton Children's HospitalUrine leukocyte esterase detection by automated test stripOrdered By: Rajan Moreland on 12-45-9253Ayqubaakt esterase Auto test strip Ql (U)NegativeNegDayton Children's HospitalUrine pH measurement by automated test stripOrdered By: Rajan Moreland on 82-84-8552jQ (U)6.5 [pH]5.0-9.0[facility] HospitalComment on above:Order Comment: Name Collection Type:: Clean-Voided MidstreamPerformed By: #### PP, ESR, CK, ADDONUAPLUS, CRP, CMP, TSH3, CBC, T4F #### [facility] [address] #### ALDOLASE, FRANCISCO,URINE, UPE RAND, SPE, RPR W RFX, FRANCISCO SERUM #### [facility] ,Urobilinogen Auto test strip (U) [Mass/Vol]Ordered By: Rajan Moreland on 46-71-4333Bcjyummjscdr (U) [Mass/Vol]Normal mg/dLNormalFayette County Memorial HospitalaPTT.lupus sensitive/aPTT.lupus sensitive W excess phospholipid (screen to confirm raOrdered By: Rajan Moreland on 81-87-6987zPEJ.lupus sensitive/aPTT.lupus sensitive W excess phospholipid Coag (PPP) [Ratio]1.16 Ratio0.00-1.34[facility] HospitalBasophils Auto (Bld) [#/Vol]on 70-00-2311Wyqhvxmdk (Bld) [#/Vol]0.0 10 3/uL0.0-0.1FMarietta Memorial HospitalBasophils/100 WBC Auto (Bld)on 72-53-4898Mdsydofmu/100 WBC (Bld)0.6 % 0.2-2.0[facility] HospitalEosinophils/100 WBC Auto (Bld)on 17-12-8495Cseubrzsvtx/100 WBC (Bld)1.5 %0.9-7.0[facility] Erythrocyte distribution width Auto (RBC) [Ratio]on 38-71-2450Ytzhmecbgsp distribution width (RBC) [Ratio]12.5 %11.0-15.0[facility] Hematocrit Auto (Bld) [Volume fraction]on 82-83-3755Yvwpyhemut (Bld) [Volume fraction]43.9 %42.0-54.0[facility] HospitalHemoglobin [Mass/volume] in Bloodon 80-66-3550Tiaztrofkx (Bld) [Mass/Vol]14.1 g/dL14.0-18.0 [facility] HospitalLaboratory - Hematology and Cell countson 24-05-8763LIZ (Bld) [Velocity]10 mm/h<=20[facility] Immature granulocytes/100 WBC (Bld)0.3 %0.0-0.5FMarietta Memorial Hospital Leukocytes [#/volume] corrected for nucleated erythrocytes in Blood by Automated counon 81-06-7421UUH corrected for nucl RBC Auto (Bld) [#/Vol]7.3 10 3/uL 4.0-11.0[facility] HospitalLymphocytes Auto (Bld) [#/Vol]on 51-23-6740Iysrstofkus (Bld) [#/Vol]1.0 10 3/uL1.2-3.8[facility] HospitalLymphocytes/100 WBC Auto (Bld)on 77-46-5856Tipxenjmexm/100 WBC (Bld)13.7 % 20.5-60.0[facility] Children's HospitalH Auto (RBC) [Entitic mass]on 99-99-6442SAE (RBC) [Entitic mass]27.1 pg25.9-34.0[facility] HospitalMCHC Auto (RBC) [Mass/Vol]on 80-44-2750EONX (RBC) [Mass/Vol]32.1 g/dL 29.9-35.2FMarietta Memorial HospitalMCV Auto (RBC) [Entitic vol]on 37-99-6176AHF (RBC) [Entitic vol]84.3 fL80.0-94.0[facility] HospitalMonocytes Auto (Bld) [#/Vol]on 12-08-1213Ykpwcylys (Bld) [#/Vol]0.4 10 3/uL0.3-0.8[facility] HospitalMonocytes/100 WBC Auto (Bld)on 40-58-4885Fxovwdnaj/100 WBC (Bld)6.1 %1.7-12.0[facility] Neutrophils Auto (Bld) [#/Vol]on 07-59-3195Ehbeynwlrbh (Bld) [#/Vol]5.7 10 3/uL 1.4-6.5FMarietta Memorial HospitalNeutrophils/100 WBC Auto (Bld)on 77-32-7381Farxuajepvc/100 WBC (Bld)77.8 %43.0-75.0[facility] HospitalNo Panel Informationon 79-60-2353Dvmi-Double Strand DNA Iilspugv04 [IU]/mL 0-9[facility] HospitalComment on above:Negative <5 Equivocal 5 - 9 Positive >9Anti-Nuclear Antibody InterpretComment.[facility] HospitalComment on above:Autoantibody Disease Association Conditi on Frequency ---------Antinuclear Antibody, SLE, mixed connectiveDirect (TONJA-D) tissue diseases ---------dsDNA SLE 40 - 60% ---------Chromatin Drug induced SLE 90% SLE 48 - 97% ---------SSA (Ro) SLE 25 - 35% Sjogren's Syndrome 40 - 70% Lupus 100% ---------SSB (La) SLE 10% Sjogren's Syndrome 30% ---------Sm (anti-Kerr) SLE 15 - 30% ---------COMMISSION BROKER Mixed Connective TissueDisease 95%(U1 nRNP, SLE 30 - 50%anti- ribonucleoprotein) Polymyositis and/or Dermatomyositis 20% ---------Scl-70 (antiDNA Scleroderma (diffuse) 20 - 35%topoisomerase) Crest 13% ---------Niru-1 Polymyositis and/or Dermatomyositis 20 - 40% ---------Centromere B Scleroderma - Crest variant 80%Performed at: [address] [id number] Director: Scott Freedman PhD, Phone: [phone]-Oiotnbnw Protein, Quantitative<0.50 mg/dL<=0.50[facility] HospitalEosinophils # (Auto)0.1 10 3/uL0.0-0.7FMarietta Memorial HospitalImmature Granulocyte # (Auto)0.02 10 3/uL0.00-0.03[facility] HospitalRNP Antibody<0.2 AI 0.0-0.9[facility] HospitalPlatelet mean volume Auto (Bld) [Entitic vol]on 49-11-0763Vjwbrpwg mean volume (Bld) [Entitic vol]9.0 fL9.5-13.5 [facility] HospitalPlatelets Auto (Bld) [#/Vol]on 06-27-2023 Platelets (Bld) [#/Vol]296 10 3/aI335-010IdmvngtgwFayette County Memorial HospitalRBC Auto (Bld) [#/Vol]on 59-82-2797HUR (Bld) [#/Vol]5.21 10 6/uL4.70-6.10[facility] Hospitalerum Sjogrens syndrome-A extractable nuclear antibody assay (units/volume)on 87-27-2376Bnygwlbm syndrome-A extractable nuclear Ab Qn (S)<0.2 AI0.0-0.9[facility] Hospitalerum Sjogrens syndrome-B extractable nuclear antibody assay (units/volume)on 00-30-9079Amrstuun syndrome- B extractable nuclear Ab Qn (S)<0.2 AI0.0-0.9[facility] Serum Kerr extractable nuclear antigen (ABAD) antibody assay (units/volume)on 93-42-7156Efxbj extractable nuclear Ab Qn (S)<0.2 AI0.0-0.9[facility] Hospitalerum or plasma cyclic adenosine monophosphate measurement (moles/volume)on 73-08-3381Nubzizkkz monophosphate.cyclic [Moles/Vol]3 units0-19 [facility] HospitalComment on above:Negative <20 Weak positive 20 - 39 Moderate positive 40 - 59 Strong positive >59Performed at:[facility] [id number] Director: Scott Freedman PhD, Phone: [phone] or plasma free cefuroxime measurement (mass/volume)on 01-51-3060Cxmmevtbwp free [Mass/Vol]PositiveNegativeSt. John of God Hospitalerum or plasma rheumatoid factor measurement (units/volume)on 06-27-2023 Rheumatoid factor Qn[IU]/mL<14.0[facility] HospitalComment on above:Performed at: - [place] [id number] Director: Scott Freedman PhD, Phone: [phone] By: Lab ROPUser on 14-95-0749Bhvrazn [Mass/Vol]203 mg/qFIvag29 - 99 mg/dLMERCY HOSPITAL [place] SubsectionComment on above:Result Comment: No Coverage Given Cleaned MeterPOC Device [id number] 1Invalid Interpretation CodeMERCY HOSPITAL [facility] – [place] POC SubsectionPOC User [id number] 1Invalid Interpretation CodeMERCY HOSPITAL [facility] [place] Subsection POC UsernamMisty Patelvalcaitlyn Interpretation CodeMERCY HOSPITAL [facility] [place] SubsectionCHEMISTRY Ordered By: SYSTEM SYSTEM on 45-09-9162Mvadm gap [Moles/Vol]10 mmol/LNormal6 - 16 mEq/LRemisol ChemCalcium [Mass/Vol]9.6 mg/dLNormal8.9 - 11.1 mg/dLRemisol ChemChloride [Moles/Vol]103 mmol/LKgohia224 - 111 mmol/LRemisol ChemCO2 [Moles/Vol]31 mmol/CZpjtdk12 - 31 mmol/LRemisol ChemCreatinine [Mass/Vol]0.8 mg/dLNormal0.5 - 1.3 mg/dLRemisol ChemeGFRmL/min/1.73 u8Qygkax>=59mL/min/1.73 m2 Remisol ChemGlucose [Mass/Vol]169 mg/jSBxrzsa94 - 199 mg/dLRemisol ChemPotassium [Moles/Vol]4.3 mmol/LNormal3.5 - 5.3 mmol/LRemisol ChemSodium [Moles/Vol]140 mmol/ZKzcexe124 - 145 mmol/LRemisol ChemUrea nitrogen [Mass/Vol]14 mg/dLNormal5 - 21 mg/dLRemisol ChemUrea nitrogen/Creatinine [Mass ratio]18 mg/cbDfmvjh69 - 20 Remisol ChemHEMATOLOGYOrdered By: SYSTEM SYSTEM on 09-73-6955Idvealccu/100 WBC (Bld)0.6 %Normal0.0 - 2.0 %[facility] HemeAutoSSBasophils/Leukocytes Auto (Bld) [Pure # fraction]0.0 E9/LNormal0.0 - 0.2 E9/LFTMC HemeAutoSSEosinophils/100 WBC (Bld) 1.8 %Normal0.0 - 8.0 %[facility] HemeAutoSSEosinophils/Leukocytes Auto (Bld) [Pure # fraction]0.1 E9/LNormal0.0 - 0.5 E9/LFTMC HemeAutoSSLymphocytes/100 WBC (Bld) 19.3 %Gwuyyk07.0 - 50.0 %[facility] HemeAutoSSLymphocytes/Leukocytes Auto (Bld) [Pure # fraction]1.3 E9/LNormal1.0 - 4.0 E9/LFTMC HemeAutoSSMonocytes/100 WBC (Bld)8.4 %Normal4.0 - 14.0 %[facility] HemeAutoSSMonocytes/Leukocytes Auto (Bld) [Pure # fraction]0.6 E9/LNormal0.2 - 1.0 E9/LFTMC HemeAutoSSNeutrophils/100 WBC (Bld) 69.9 %Vlokog41.0 - 75.0 %[facility] HemeAutoSSNeutrophils/Leukocytes Auto (Bld) [Pure # fraction]4.6 E9/LNormal2.0 - 7.5 E9/LFTMC HemeAutoSSHEMATOLOGYOrdered By: Cher Echeverria on 18-17-8008Evzopalhreb distribution width (RBC) [Ratio]13.7 % Xxlhmw57.9 - 14.2 %[facility] HemeAutoSSHematocrit (Bld) [Volume fraction]43.0 %Normal 37.7 - 49.0 %[facility] HemeAutoSSHemoglobin (Bld) [Mass/Vol]14.6 g/eSOsplxf66.5 - 17.5 gm/dLFTMC HemeAutoSSMCH (RBC) [Entitic mass]28.3 mfZctpjc08.0 - 34.0 pgFTM HemeAutoSSMCHC (RBC) [Mass/Vol]33.9 g/dNSyninl38.4 - 36.0 gm/dLFT HemeAutoSS MCV (RBC) [Entitic vol]83.3 eQUybtwz99.0 - 100.0 fLMERCY HOSPITAL [facility] [place] HemeAutoSSPlatelet mean volume (Bld) [Entitic vol]7.4 fLNormal6.4 - 10.8 fLMERCY HOSPITAL [facility] [place] HemeAutoSSPlatelets (Bld) [#/Vol]315.0 E9/AErxjge077.0 - 500.0 E9/LFCHOCTAW MEMORIAL [facility] – [facility] HemeAutoSSRBC (Bld) [#/Vol] 5.2 E12/LNormal4.3 - 5.9 E12/LFC HemeAutoSSWBC corrected for nucl RBC Auto (Bld) [#/Vol]6.6 E9/LNormal4.0 - 11.0 E9/LFCHOCTAW MEMORIAL HOSP[facility] – [place] HemeAutoSSCBC W MANUAL DIFFon 02-41-6557RYWYQJIP LYMPH #NormalThe Uc HealthComment on above:Performed By: #### CBC #### [facility] [address] [place] [address] Dr. Wai MckeonYPICAL LYMPH %NormalThe Uc HealthComment on above: Performed By: #### CBC #### [facility] [address] [place] [address] Dr. Wai Bass #0.0 103/ulNormal0.0-0.3The [facility]c HealthComment on above:Performed By: #### CBC #### [facility] [address] [place] [address] Dr. Wai Bass %0 %Normal0-5The Uc HealthComment on above:Performed By: #### CBC #### [facility] [address] [place] [address] Dr. Wai Britt #0.00 103/ulNormal0.00-0.10The [facility]c HealthComment on above:Performed By: #### CBC #### [facility] [address] [place] [address] Dr. Wai Britt %0.0 %Critically low0.2-2.0The [facility]c HealthComment on above:Performed By: #### CBC #### [facility] [address] [place] [address] Dr. Wai London #NormalThe Uc HealthComment on above:Performed By: #### CBC #### [facility] [address] [address] [address] Wai London %NormalThe Uc HealthComment on above:Performed By: #### CBC #### [facility] [address] [place] [address] Dr. Wai VallejoCORRECTED WBCNormal4.0-11.0The [facility]c HealthComment on above: Performed By: #### CBC #### [facility] [address] [place] [address] Dr. Wai Santos #0.00 103/ulNormal0.00-0.70The [facility]c HealthComment on above:Performed By: #### CBC #### [facility] [address] [place] [address] Dr. Wai Santos%0.0 %Critically low0.9-7.0The [facility]c HealthComment on above:Performed By: #### CBC #### [facility] [address] [place] [address] Dr. Wai VallejoHCT40.4 %Critically low42.0-54.0The [facility]c HealthComment on above:Performed By: #### CBC #### [facility] [address] [place] [address] Dr. Wai VallejoHGB13.8 g/dlCritically low14.0-18.0The [facility]c HealthComment on above:Performed By: #### CBC #### [facility] [address] [place] [address] Dr. Wai Tabor #0.62 103/ulCritically low1.20-3.80The [facility] on above:Performed By: #### CBC #### [facility] [address] [place] [address] Dr. Wai Tabor%6.0 %Critically low20.5-60.0The [facility]c HealthComment on above:Performed By: #### CBC #### [facility] [address] [place] [address] Dr. Wai ArreolaH28.2 znBklswz10.9-34.0The [facility]c HealthComment on above: Performed By: #### CBC #### [facility] [address] [place] [address] Dr. Wai ArreolaHC34.2 g/maGypums24.9-35.2The [facility]c HealthComment on above:Performed By: #### CBC #### [facility] [address] [place] [address] Dr. Wai ArreolaV82.4 wDRtpxtd56.0-94.0The [facility] HealthComment on above: Performed By: #### CBC #### [facility] [address] [place] [address] Dr. Wai FranksOCYTE #NormalThe [facility]c HealthComment on above: Performed By: #### CBC #### [facility] [address] [place] [address] Dr. Wai FranksOCYTE %NormalThe [facility]c HealthComment on above: Performed By: #### CBC #### [facility] [address] [place] [address] Dr. Wai Celeste#0.52 103/ulNormal0.30-0.80The [facility]c HealthComment on above:Performed By: #### CBC #### [facility] [address] [place] [address] Dr. Wai Celeste%5.0 %Normal1.7-12.0The [facility]c HealthComment on above: Performed By: #### CBC #### [facility] [address] [place] [address] Dr. Wai MoralezV9.6 fLNormal9.5-13.5The [facility]c HealthComment on above: Performed By: #### CBC #### [facility] [address] [address] [address] Wai PereiraOCYTE #NormalThe [facility]c HealthComment on above:Performed By: #### CBC #### [facility] [address] [address] [address] Wai PereiraOCYTE %NormalThe [facility]c HealthComment on above:Performed By: #### CBC #### [facility] [address] [address] [address] Wai VallejoNRBCNormalThe [facility]c HealthComment on above:Performed By: #### CBC #### [facility] [address] [address] [address] Wai RuizT268 103/rkUkqykg350-823Csh [facility]c HealthComment on above: Performed By: #### CBC #### [facility] [address] [place] [address] Dr. Wai VallejoRBC4.90 106/ulNormal4.70-6.10The [facility]c HealthComment on above:Performed By: #### CBC #### [facility] [address] [place] [address] Dr. Wai GaitanW12.3 %Hnyzgc99.0-15.0The [facility]c HealthComment on above: Performed By: #### CBC #### [facility] [address] [place] [address] Dr. Wai Medeiros #9.17 103/ulCritically high1.40-6.50The [facility] Comment on above:Performed By: #### CBC #### [facility] [address] [place] [address] Dr. Wai Medeiros %89.0 %Critically high43.0-75.0The [facility]c HealthComment on above:Performed By: #### CBC #### [facility] [address] [place] [address] Dr. Wai McclellandBC10.3 103/ulNormal4.0-11.0The [facility]c HealthComment on above:Performed By: #### CBC #### [facility] [address] [address] [address] Wai VallejoMRI BRAIN WO CONon 75-87-2206KAZ BRAIN WO CONEXAMINATION: MRI BRAIN WO CON, 06/19/2022 1:58 PM [...] Electronically authenticated by: STEPHY DELANEY Date: 2022-06-20 08:23[facility] HospitalPOINT OF CARE GLUCOSEon 27-28-7851Qmhwaif [Mass/Vol]318 mg/dL Critically oibb84-316UteWilson HealthComment on above:Performed By: #### POCGLUC #### [facility] [address] [place] [address] Dr. Wai VallejoGlucose [Mass/Vol]212 mg/dLCritically feoy90-420SmxWilson HealthComhillsdale hospital on above:Performed By: #### POCGLUC #### [facility] [address] [address] [address] Wai VallejoGlucose [Mass/Vol]359 mg/dLCritically qtzq10-874CkvWilson HealthComhillsdale hospital on above:Performed By: #### CBC #### [facility] [address] [place] [address] Dr. Wai VallejoPROF CHEM 8 (BAS METB)on 48-74-4606Yvynu gap [Moles/Vol]12.0 mmol/LNormalWilson HealthComment on above:Performed By: #### BMP #### [facility] [address] [address] [address] Wai VallejoCalcium [Mass/Vol]9.3 mg/dLNormal8.5-10.1The [facility] Comment on above:Performed By: #### BMP #### [facility] [address] [address] [address] Wai VallejoChloride [Moles/Vol]104 mmol/GBlgqdi27-228Qxk [facility] Comment on above:Performed By: #### BMP #### [facility] [address] [address] [address] Wai VallejoCO2 [Moles/Vol]28.2 mmol/TRkzyce31.0-32.0The [facility] Comment on above:Performed By: #### BMP #### [facility] [address] [place] [address] Dr. Wai VallejoCreatinine [Mass/Vol]0.85 mg/dLNormal0.70-1.30The [facility] HealthComment on above:Performed By: #### BMP #### [facility] [address] [address] [address] Carreno ChangEGFR-AF MARSHALLESE>60Normal>=60The [facility]c HealthComment on above:Performed By: #### BMP #### [facility] [address] [place] [address] Dr. Wai IngramGFR-NON AF MARSHALLESE>60Normal>=60The [facility]c HealthComment on above:Performed By: #### BMP #### [facility] [address] [address] [address] Wai VallejoGlucose [Mass/Vol]263 mg/dLCritically mcfd46-072Qcy [facility]c HealthComment on above:Performed By: #### BMP #### [facility] [address] [address] [address] Wai VallejoPotassium [Moles/Vol]4.2 mmol/LNormal3.5-5.1The [facility] Comment on above:Performed By: #### BMP #### [facility] [address] [place] [address] Dr. Wai Aldium [Moles/Vol]140 mmol/OXmyqre233-751UxcWilson Health Comment on above:Performed By: #### BMP #### [facility] [address] [address] [address] Wai Chiu nitrogen [Mass/Vol]18.0 mg/dLNormal7.0-18.0Wilson HealthComment on above:Performed By: #### BMP #### [facility] [address] [address] [address] Wai Chiu nitrogen/Creatinine [Mass ratio]21.2 mg/mgNoKettering Health Washington TownshipComment on above:Performed By: #### BMP #### [facility] [address] [place] [address] Dr. Wai VallejoXR FOREIGN BODY EYEon 12-21-5813JL FOREIGN BODY EYEEXAMINATION: XR FOREIGN BODY EYE HISTORY: Foreign body in eye COMPARISON: No relevant comparison available. FINDINGS: ORBITS: Negative for a metallic foreign body. OTHER: Negative. IMPRESSION: 1. No metallic foreign body within the orbits. Electronically authenticated by: STEPHY DELANEY Date: 2022-06-20 07:54NoProMedica [facility] AUTO DIFFon 57-36-2382OCLM #0.0 103/ulNormal0.0-0.1Wilson HealthComment on above:Performed By: #### CBC #### [facility] [address] [place] [address] Dr. Wai VallejoBasophils/100 WBC (Bld)0.4 %Normal0.2-2.0[facility] Comment on above:Performed By: #### CBC #### [facility] [address] [place] [address] Dr. Wai Gonzales #0.0 103/ulNormal0.0-0.7The Uc HealthComment on above: Performed By: #### CBC #### [facility] [address] [place] [address] Dr. Wai Ingramosinophils/100 WBC (Bld)0.4 %Critically low0.9-7.0The Uc HealthComment on above:Performed By: #### CBC #### [facility] [address] [place] [address] Dr. Wai Ingramrythrocyte distribution width (RBC) [Ratio]12.3 %Nmczgh59.0-15.0 The Uc HealthComment on above:Performed By: #### CBC #### [facility] [address] [place] [address] Dr. Wai VallejoHematocrit (Bld) [Volume fraction]43.7 %Rhuphn77.0-54.0The Uc HealthComment on above:Performed By: #### CBC #### [facility] [address] [place] [address] Dr. Wai VallejoHemoglobin (Bld) [Mass/Vol]15.1 g/gAGqatkl60.0-18.0The Uc HealthComment on above:Performed By: #### CBC #### [facility] [address] [place] [address] Dr. Wai Lyon #0.01 10e3/ulNormal0.00-0.03The [facility]c HealthComment on above:Performed By: #### CBC #### [facility] [address] [place] [address] Dr. Wai Lyon %0.1 %Normal0.0-0.5The Uc HealthComment on above: Performed By: #### CBC #### [facility] [address] [place] [address] Dr. Wai DavilaH #1.2 103/ulNormal1.2-3.8The Uc HealthComment on above:Performed By: #### CBC #### [facility] [address] [place] [address] Dr. Wai Vallemphocytes/100 WBC (Bld)14.6 %Critically low20.5-60.0The [facility]c HealthComment on above:Performed By: #### CBC #### [facility] [address] [place] [address] Dr. Wai Mena DIFF REQNONormalThe Uc HealthComment on above: Performed By: #### CBC #### [facility] [address] [place] [address] Dr. Wai Arreola (RBC) [Entitic mass]28.3 seQjpyvd76.9-34.0The [facility] HospitalComment on above:Performed By: #### CBC #### [facility] [address] [place] [address] Dr. Wai Arreola (RBC) [Mass/Vol]34.6 g/gHWgfmob81.9-35.2The [facility] HospitalComment on above:Performed By: #### CBC #### [facility] [address] [place] [address] Dr. Wai Arreola (RBC) [Entitic vol]81.8 iHZezsxf45.0-94.0The [facility]c HealthComment on above:Performed By: #### CBC #### [facility] [address] [place] [address] Dr. Wai Fitzpatrick #0.5 103/ulNormal0.3-0.8The [facility]c HealthComment on above:Performed By: #### CBC #### [facility] [address] [place] [address] Dr. Wai Meadowsocytes/100 WBC (Bld)6.5 %Normal1.7-12.0The [facility] Comment on above:Performed By: #### CBC #### [facility] [address] [place] [address] Dr. Wai Gonzales #6.5 103/ulNormal1.4-6.5The [facility]c HealthComment on above:Performed By: #### CBC #### [facility] [address] [place] [address] Dr. Wai Glezutrophils/100 WBC (Bld)78.0 %Critically high43.0-75.0The [facility]c HealthComment on above:Performed By: #### CBC #### [facility] [address] [place] [address] Dr. Wai VallejoPlatelet mean volume (Bld) [Entitic vol]9.0 fLCritically low 9.5-13.5The [facility]c HealthComment on above:Performed By: #### CBC #### [facility] [address] [place] [address] Dr. Wai VallejoPLT310 103/kxDzhxhg087-066Eub Uc HealthComment on above: Performed By: #### CBC #### [facility] [address] [address] [address] Wai VallejoRBC5.34 106/ulNormal4.70-6.10The [facility]c HealthComment on above:Performed By: #### CBC #### [facility] [address] [place] [address] Dr. Wai VallejoWBC8.3 103/ulNormal4.0-11.0The Uc HealthComment on above: Performed By: #### CBC #### [facility] [address] [place] [address] Dr. Wai VallejoCT STROKE HEAD WOon 83-58-5066VK STROKE HEAD WOHEAD CT WITHOUT CONTRAST: 06/19/2022 10:22 AM EDT [...] Electronically authenticated by: CHAVA ARMSTRONG Date: 2022-06-19 10:49[facility] CenterA NECK WO W CONon 92-09-9953TBY NECK WO W CONEXAMINATION: CTA HEAD WO W CON, CTA NECK [...] Electronically authenticated by: ALFONSO BELL Date: 2022-06-19 15:35NoKettering Health Washington TownshipCovid-19 PCR (CVDTBH)on 09-98-5179PKTW-CoV-2 (COVID-19) RNA TC+probe Ql (Unsp spec)Not detectedNormalNOT DETECTEDThe [facility] Comment on above:Result Comment: When diagnostic testing is negative, the [...] for this test is supported by the [place] of Health and Human Service's declaration that circumstances exist to justify the emergency use of in vitro diagnostics for the detection and/or diagnosis of the virus that causes COVID-19. This EUA will remain in effect for the duration of the COVID-19 declaration justifying emergency of IVDs, unless it is terminated or revoked by the FDA (after which the test may no longer be used).Performed By: #### CBC #### [facility] [address] [place] [address] Dr. Wai VallejoARCHBOLD - [facility] GLUCOSEon [id number] [Mass/Vol]511 mg/dL Critically [id number] Community Hospital on above:Result Comment: Will Repeat TestPerformed By: #### POCGLUC #### [facility] [address] [place] [address] Dr. Wai VallejoGlucose [Mass/Vol]489 mg/dLCritically gvrp31-430PhoWilson HealthComhillsdale hospital on above:Performed By: #### POCGLUC #### [facility] [address] [place] [address] Dr. Wai VallejoGlucose [Mass/Vol]361 mg/dLCritically axvs93-595OujWilson HealthComhillsdale hospital on above:Performed By: #### CBC #### [facility] [address] [place] [address] Dr. Wai VallejoPROF 14(COMP METB)on 07-77-3518Unkokja [Mass/Vol]4.1 g/dLNormal 3.4-5.0[facility] on above:Performed By: #### CMP #### [facility] [address] [place] [address] Dr. Wai VallejoAlbumin/Globulin [Mass ratio]1.2 {ratio}NormalWilson HealthComhillsdale hospital on above:Performed By: #### CMP #### [facility] [address] [place] [address] Dr. Wai Naarnjo [Catalytic activity/Vol]68 U/TChztxe65-054CpjWilson HealthComhillsdale hospital on above:Performed By: #### CMP #### [facility] [address] [place] [address] Dr. Wai Argueta [Catalytic activity/Vol]33 U/TZkxmve87-65Jma [facility] on above:Performed By: #### CMP #### [facility] [address] [place] [address] Dr. Wai Villasenor gap [Moles/Vol]13.4 mmol/LNormalThe [facility] Comment on above:Performed By: #### CMP #### [facility] [address] [address] [address] Wai VallejoAST [Catalytic activity/Vol]21 U/SSuhlfe47-29Zrp [facility] HealthComment on above:Performed By: #### CMP #### [facility] [address] [address] [address] Wai VallejoBilirubin [Mass/Vol]1.5 mg/dLCritically high0.2-1.0The [facility] HealthComment on above:Performed By: #### CMP #### [facility] [address] [address] [address] Wai VallejoCalcium [Mass/Vol]9.3 mg/dLNormal8.5-10.1[facility] Comment on above:Performed By: #### CMP #### [facility] [address] [address] [address] Wai VallejoChloride [Moles/Vol]99 mmol/LXvvzmj36-084Jth [facility] Comment on above:Performed By: #### CMP #### [facility] [address] [address] [address] Wai VallejoCO2 [Moles/Vol]23.9 mmol/PVjdhiw42.0-32.0[facility] Comment on above:Performed By: #### CMP #### [facility] [address] [address] [address] Wai VallejoCreatinine [Mass/Vol]0.87 mg/dLNormal0.70-1.30The [facility] HealthComment on above:Performed By: #### CMP #### [facility] [address] [address] [address] Wai IngramGFR-AF MARSHALLESE>60Normal>=60The [facility] HealthComment on above:Performed By: #### CMP #### [facility] [address] [address] [address] Wai IngramGFR-NON AF MARSHALLESE>60Normal>=60The [facility] HealthComment on above:Performed By: #### CMP #### [facility] [address] [address] [address] Wai VallejoGlobulin (S) [Mass/Vol]3.5 g/dLNormalThGenesis HospitalComment on above:Performed By: #### CMP #### [facility] [address] [address] [address] Wai VallejoGlucose [Mass/Vol]306 mg/dLCritically emyt67-314Uqh [facility] HealthComment on above:Performed By: #### CMP #### [facility] [address] [address] [address] Wai VallejoPotassium [Moles/Vol]3.3 mmol/LCritically low3.5-5.1The [facility] above:Performed By: #### CMP #### [facility] [address] [address] [address] Wai VallejoProtein [Mass/Vol]7.6 g/dLNormal6.4-8.2The [facility] Comment on above:Performed By: #### CMP #### [facility] [address] [address] [address] Wai VallejoSodium [Moles/Vol]133 mmol/LCritically ciy374-706Dpp [facility] on above:Performed By: #### CMP #### [facility] [address] [address] [address] Wai VallejoUrea nitrogen [Mass/Vol]13.0 mg/dLNormal7.0-18.0The [facility] on above:Performed By: #### CMP #### [facility] [address] [address] [address] Wai VallejoUrea nitrogen/Creatinine [Mass ratio]14.9 mg/mgNormalThTriHealth [facility] on above:Performed By: #### CMP #### [facility] [address] [address] [address] Wai VallejoPROTIMEon 39-59-6081TKC Coag (PPP) [Relative time]0.93 {INR} NormalThe [facility] on above:Performed By: #### PTT, PT #### [facility] [address] [place] [address] [facility] HospitalComment on above:Result Comment: DESIRED INR: 2.0 - 3.0 CONDITIONS NOT LISTED BELOW 2.5 - 3.5 FOR PROSTHETIC HEART VALVE REPLACEMENT 2.5 - 3.5 RECURRENT THROMBOSIS Performed By: #### PTT, PT #### [facility] [address] [place] [address] Dr. Wai VallejoPT Coag (PPP) [Time]9.9 sNormal9.0-11.6The [facility] Comment on above:Performed By: #### PTT, PT #### [facility] [address] [place] [address] Dr. Wai VallejoPTTon 27-89-7212cRND Coag (Bld) [Time]25.2 fWjihxn49.3-36.2The [facility] HealthComment on above:Performed By: #### PTT, PT #### [facility] [address] [place] [address] Dr. Wai VallejoTESTOSTERONE, TOTALon 47-02-5087Eijympwfofme [Mass/Vol]421 ng/dL Dgumsb649-767CnzWooster Community Hospital on above:Result Comment: Adult male reference interval is based on a population of healthy nonobese males (BMI <30) between 19 and 39 years old. Pillo, et.al. JCEM 2017,102;5310-2977. PMID: [id number].Performed By: #### TESTTOT #### [facility] [address] [place] [address] Dr. Wai VallejoCBKarl AUTO DIFFon 28-85-8448UYJG #0.0 103/ulNormal0.0-0.1The [facility] on above:Performed By: #### CBC #### [facility] [address] [place] [address] Dr. Wai VallejoBasophils/100 WBC (Bld)0.4 %Normal0.2-2.0The [facility] Comment on above:Performed By: #### CBC #### [facility] [address] [place] [address] Dr. Wai Gonzales #0.2 103/ulNormal0.0-0.7The [facility] HealthComment on above: Performed By: #### CBC #### [facility] [address] [place] [address] Dr. Wai Ingramosinophils/100 WBC (Bld)2.6 %Normal0.9-7.0The [facility] Comment on above:Performed By: #### CBC #### [facility] [address] [place] [address] Dr. Wai Ingramrythrocyte distribution width (RBC) [Ratio]12.2 %Rovocv76.0-15.0 The [facility] HealthComment on above:Performed By: #### CBC #### [facility] [address] [place] [address] Dr. Wai VallejoHematocrit (Bld) [Volume fraction]43.0 %Kajpuu12.0-54.0The [facility] HealthComment on above:Performed By: #### CBC #### [facility] [address] [place] [address] Dr. Wai VallejoHemoglobin (Bld) [Mass/Vol]14.7 g/gEVdggpy78.0-18.0The [facility] HealthComment on above:Performed By: #### CBC #### [facility] [address] [place] [address] Dr. Wai Lyon #0.02 10e3/ulNormal0.00-0.03The [facility] HealthComment on above:Performed By: #### CBC #### [facility] [address] [place] [address] Dr. Wai Lyon %0.3 %Normal0.0-0.5The [facility] HealthComment on above: Performed By: #### CBC #### [facility] [address] [place] [address] Dr. Wai Velarde #1.4 103/ulNormal1.2-3.8The [facility] HealthComment on above:Performed By: #### CBC #### [facility] [address] [place] [address] Dr. Wai Vallemphocytes/100 WBC (Bld)19.8 %Critically low20.5-60.0The [facility] HealthComment on above:Performed By: #### CBC #### [facility] [address] [place] [address] Dr. Wai Mena DIFF REQNONormalThe Uc HealthComment on above: Performed By: #### CBC #### [facility] [address] [place] [address] Dr. Wai Arreola (RBC) [Entitic mass]28.5 jdPerbvx02.9-34.0The [facility]c HealthComment on above:Performed By: #### CBC #### [facility] [address] [place] [address] Dr. Wai Arreola (RBC) [Mass/Vol]34.2 g/pZChgoka30.9-35.2The [facility] HealthComment on above:Performed By: #### CBC #### [facility] [address] [place] [address] Dr. Wai Earl (RBC) [Entitic vol]83.5 gZJdfdvs49.0-94.0The [facility] HealthComment on above:Performed By: #### CBC #### [facility] [address] [place] [address] Dr. Wai Fitzpatrick #0.5 103/ulNormal0.3-0.8The [facility] HealthComment on above:Performed By: #### CBC #### [facility] [address] [place] [address] Dr. Wai Meadowsocytes/100 WBC (Bld)6.9 %Normal1.7-12.0The [facility] Comment on above:Performed By: #### CBC #### [facility] [address] [place] [address] Dr. Yilan ChangNEUT #5.1 103/ulNormal1.4-6.5The [facility] HealthComment on above:Performed By: #### CBC #### [facility] [address] [place] [address] Dr. Wai Glezutrophils/100 WBC (Bld)70.0 %Tvekxo69.0-75.0The [facility] HealthComment on above:Performed By: #### CBC #### [facility] [address] [place] [address] Dr. Wai VallejoPlatelet mean volume (Bld) [Entitic vol]9.1 fLCritically low 9.5-13.5The [facility] HealthComment on above:Performed By: #### CBC #### [facility] [address] [place] [address] Dr. Wai VallejoPLT283 103/baJtxkee340-267Tfz [facility]c HealthComment on above: Performed By: #### CBC #### [facility] [address] [place] [address] Dr. Wai VallejoRBC5.15 106/ulNormal4.70-6.10The [facility] HealthComment on above:Performed By: #### CBC #### [facility] [address] [place] [address] Dr. Wai VallejoWBC7.3 103/ulNormal4.0-11.0The [facility] HealthComment on above: Performed By: #### CBC #### [facility] [address] [place] [address] Dr. Wai VallejoGLYCOHEMOGLOBIN A1Con 99-01-7935SDS RECOMMENDATIONSEE BELOWNormal The Uc HealthComment on above:Result Comment: ADA RECOMMENDED LIMIT 4.0 - 6.0 ADA THERAPEUTIC TARGET < 7.0 ACTION SUGGESTED > 7.0Performed By: #### A1C #### [facility] [address] [place] [address] Dr. Wai VallejoGlucose [Mass/Vol]177 mg/dLNormalThGenesis HospitalComment on above:Performed By: #### A1C #### [facility] [address] [address] [address] Wai VallejoHbA1c (Bld) [Mass fraction]7.8 %Critically high4.5-6.2The [facility] HealthComment on above:Performed By: #### A1C #### [facility] [address] [address] [address] Wai JamesID PROFILEon 45-16-2281XVSC-HDL RATIO NORMSEE BELOWProMedica Bay Park HospitalComment on above:Result Comment: 3.3 - 4.4 LOW RISK 4.4 - 7.1 AVERAGE RISK 7.1 - 11.0 MODERATE RISK >11.0 HIGH RISKPerformed By: #### CMP, LIPID #### [facility] [address] [place] [address] Dr. Wai Milneresterol [Mass/Vol]153 mg/dLNormal<=200The [facility] Comment on above:Performed By: #### CMP, LIPID #### [facility] [address] [place] [address] Dr. Wai Milneresterol in HDL [Mass/Vol]41 mg/hFPulipa01-15Itx [facility] HealthComment on above:Performed By: #### CMP, LIPID #### [facility] [address] [place] [address] Dr. Wai VallejoCholesterol in LDL [Mass/Vol]75.4 mg/dLProMedica Bay Park HospitalComment on above:Performed By: #### CMP, LIPID #### [facility] [address] [place] [address] Dr. Wai Milneresterjack.total/Cholesterol in HDL [Mass ratio]3.7 {ratio} NormalThe [facility]c HealthComment on above:Performed By: #### CMP, LIPID #### [facility] [address] [place] [address] Dr. Wai VallejoHDL NORMAL> or = 60 mg/dl - LOW CARDIOVASCULAR RISK <40 mg/dl - HIGH CARDIOVASCULAR RISKProMedica Bay Park HospitalComment on above:Performed By: #### CMP, LIPID #### [facility] [address] [place] [address] Dr. Wai Vazquez CALC NORMALSEE BELOWNoKettering Health Washington TownshipComment on above:Result Comment: <100 mg/dl OPTIMAL 100 - 129 mg/dl NEAR OR ABOVE OPTIMAL 130 - 159 mg/dl BORDERLINE HIGH 160 - 189 mg/dl HIGH >190 mg/dl VERY HIGH Performed By: #### CMP, LIPID #### [facility] [address] [place] [address] Dr. Wai VallejoTriglyceride [Mass/Vol]183 mg/dLCritically high<=150The [facility] on above:Performed By: #### CMP, LIPID #### [facility] [address] [place] [address] Dr. Wai VallejoVLDL CALC36.6 mg/dLNoKettering Health Washington TownshipComment on above: Performed By: #### CMP, LIPID #### [facility] [address] [place] [address] Dr. Wai BarahonaALBUMIN, RAND URon 04-06-9771jTYE<1.3Normal<=30.0The [facility] on above:Performed By: #### MALBR #### [facility] [address] [place] [address] Dr. Wai López 14(COMP METB)on 87-32-2184Bqvfred [Mass/Vol]3.7 g/dLNormal 3.4-5.0The [facility] HealthComment on above:Performed By: #### CMP, LIPID #### [facility] [address] [place] [address] Dr. Wai VallejoAlbumin/Globulin [Mass ratio]1.0 {ratio}NormalThe [facility]Com[facility] on above:Performed By: #### CMP, LIPID #### [facility] [address] [place] [address] Dr. Wai Naranjo [Catalytic activity/Vol]53 U/XYslbrr37-026Ast [facility] HealthComment on above:Performed By: #### CMP, LIPID #### [facility] [address] [place] [address] Dr. Wai Argueta [Catalytic activity/Vol]32 U/UKwnyaw21-24Ayt [facility] HealthComment on above:Performed By: #### CMP, LIPID #### [facility] [address] [place] [address] Dr. Wai Soteloon gap [Moles/Vol]10.0 mmol/LNormalWilson Health Comment on above:Performed By: #### CMP, LIPID #### [facility] [address] [place] [address] Dr. Wai VallejoAST [Catalytic activity/Vol]17 U/ADljqel66-87Tpo [facility] HealthComment on above:Performed By: #### CMP, LIPID #### [facility] [address] [place] [address] Dr. Wai VallejoBilirubin [Mass/Vol]1.5 mg/dLCritically high0.2-1.0The [facility] HealthComment on above:Performed By: #### CMP, LIPID #### [facility] [address] [place] [address] Dr. Wai VallejoCalcium [Mass/Vol]9.0 mg/dLNormal8.5-10.1[facility] Comment on above:Performed By: #### CMP, LIPID #### [facility] [address] [place] [address] Dr. Wai VallejoChloride [Moles/Vol]101 mmol/XVpqvod63-391XnpWilson Health Comment on above:Performed By: #### CMP, LIPID #### [facility] [address] [place] [address] Dr. Wai VallejoCO2 [Moles/Vol]30.0 mmol/YQgqjxb77.0-32.0The [facility] Comment on above:Performed By: #### CMP, LIPID #### [facility] [address] [place] [address] Dr. Wai VallejoCreatinine [Mass/Vol]0.81 mg/dLNormal0.70-1.30The [facility] HealthComment on above:Performed By: #### CMP, LIPID #### [facility] [address] [address] [address] Wai IngramGFR-AF MARSHALLESE>60Normal>=60The [facility] HealthComment on above:Performed By: #### CMP, LIPID #### [facility] [address] [address] [address] Wai IngramGFR-NON AF MARSHALLESE>60Normal>=60The [facility] HealthComment on above:Performed By: #### CMP, LIPID #### [facility] [address] [address] [address] Wai VallejoGlobulin (S) [Mass/Vol]3.6 g/dLNormalThe [facility] HealthComment on above:Performed By: #### CMP, LIPID #### [facility] [address] [place] [address] Dr. Wai VallejoGlucose [Mass/Vol]192 mg/dLCritically mwws30-962Amh [facility] HealthComment on above:Performed By: #### CMP, LIPID #### [facility] [address] [place] [address] Dr. Wai VallejoPotassium [Moles/Vol]4.0 mmol/LNormal3.5-5.1The [facility] Comment on above:Performed By: #### CMP, LIPID #### [facility] [address] [place] [address] Dr. Wai VallejoProtein [Mass/Vol]7.3 g/dLNormal6.4-8.2[facility] Comment on above:Performed By: #### CMP, LIPID #### [facility] [address] [place] [address] Dr. Wai VallejoSodium [Moles/Vol]137 mmol/VAvoneu871-558Xzl [facility] Comment on above:Performed By: #### CMP, LIPID #### [facility] [address] [place] [address] Dr. Wai VallejoUrea nitrogen [Mass/Vol]13.0 mg/dLNormal7.0-18.0The [facility] HealthComment on above:Performed By: #### CMP, LIPID #### [facility] [address] [address] [address] Wai VallejoUrea nitrogen/Creatinine [Mass ratio]16.0 mg/mgProMedica Bay Park HospitalComment on above:Performed By: #### CMP, LIPID #### [facility] [address] [address] [address] Wai Vallejo Vital Signs Date TimeVital SignValuePerforming BfgesvdqnKphtjrap11-70-4366 10:18-0400Body oeujic478.8 cmBenjamin Ball DO Work Phone: [phone] [place], [place] 2676410-01-2025 10:18-0400 Body mass index (BMI) [Ratio]24.7 kg/o4Jtcckbzx Ball DO Work Phone: [phone] [place], [place] 9174410-01-2025 10:18-0400 Body rnaboy83.13 kgBenjamin Ball DO Work Phone: [phone])[address]10-01-2025 10:18-0400 Diastolic blood luxcjcsn97 mm[Hg]Max Ball DO Work Phone: [phone] [place], [place] 2676410-01-2025 10:18-0400 Heart rate80 /minBenjamin Ball DO Work Phone: [phone])[facility] [place], [place] 267[address]10-01-2025 10:18-0400 Respiratory rate12 /minBenjamin Ball DO Work Phone: [phone])[facility] [place], [place] [address]10-01-2025 10:18-0400 Systolic blood tloqgdjb558 mm[Hg]Max Ball DO Work Phone: [phone]08-11-2025 10:21-0400 Body zxcomv655.3 cmJason Brown DO Work Phone: NON[facility] CenterRfumbmlhkn64-56-8239 10:21-0400Body mass index (BMI) [Ratio]27.47 kg/i9Qvmfm Brown DO Work Phone: NON[facility] CenterVdkibwztdt35-86-6319 10:21-0400Body .37 kgJason Brown DO Work Phone: [phone])[address]07-09-2025 10:15-0400Body erzaee916.8 cmBenjamin Ball DO Work Phone: [facility]07-09-2025 10:15-0400 Body mass index (BMI) [Ratio]23.8 kg/g9Njvymovz Ball DO Work Phone: [phone]07-09-2025 10:15-0400 Body .52 kgBenjamin Ball DO Work Phone: [phone]07-09-2025 10:15-0400 Diastolic blood qvjvmpga33 mm[Hg]Max Ball DO Work Phone: [phone]07-09-2025 10:15-0400 Heart rate74 /minBenjamin Ball DO Work Phone: [phone]07-09-2025 10:15-0400 Respiratory rate12 /minBenjamin Ball DO Work Phone: [phone]07-09-2025 10:15-0400 Systolic blood ybyvqxzl310 mm[Hg]Max Ball DO Work Phone: [phone]07-03-2025 15:38-0400 Body rlpdyn975.3 cmJason Brown DO Work Phone: [phone] HospitalMwtyzkpceq42-97-9617 15:38-0400Body mass index (BMI) [Ratio]27.47 kg/f8Ulvxj Brown DO Work Phone: [phone])[facility] [place], [place] [address]Vupcnqaxgz43-25-3777 15:38-0400Body gjyvvy89.37 kgJason Brown DO Work Phone: [phone])[facility]-5564[facility] HospitalYmyftmhjca32-55-4834 10:13-0400Body uisknf181.3 cmTtere [place] PA Work Phone: [phone])[facility] [place], [place] [address]Sxfbwychah70-03-7508 10:13-0400Body mass index (BMI) [Ratio]27.47 kg/m2Rosi [place] PA Work Phone: [phone] [place], [place] [address]Gjuqdqmeyp30-52-2991 10:13-0400Body jtuakl09.37 kgTodd [place] PA Work Phone: [phone] [place], [place] [address]Qpwzctlcnp16-62-8919 09:55-0400Body .3 cmZen Brown DO Work Phone: [phone])[facility]-9350[facility] HospitalGwvwniuklz74-71-6177 09:55-0400Body mass index (BMI) [Ratio]27.47 kg/m5Yyygh Brown DO Work Phone: [phone])[address] [place], [place] 0406806-12-2025 09:55-0400Body hjrkez09.37 kgZen Brown DO Work Phone: [phone])[address] [place], [place] 0406805-20-2025 11:10-0400Body xsmutf160.8 cmBenjamin Ball DO Work Phone: [phone]05-20-2025 11:10-0400 Body mass index (BMI) [Ratio]23.8 kg/o1Pbzlwttm Ball DO Work Phone: [phone])[address]05-20-2025 11:10-0400 Body mdlokk46.35 kgBenjamin Ball DO Work Phone: [phone] [place], [place] 2676405-20-2025 11:10-0400 Diastolic blood sqsbijxm62 mm[Hg]Max Ball DO Work Phone: [phone] [place], [place] 2676405-20-2025 11:10-0400 Heart rate80 /minBenjamin Ball DO Work Phone: [phone])547-[address] [place], [place] 2676405-20-2025 11:10-0400 Respiratory rate12 /minBenjamin Ball DO Work Phone: [phone] [place], [place] 2676405-20-2025 11:10-0400 Systolic blood fzlweltf978 mm[Hg]Max Ball DO Work Phone: [phone])493-[address] [place], [place] 2676404-24-2025 10:30-0400 Body yrbbpv921.8 cmF[facility]04-24-2025 10:30-0400Body mass index (BMI) [Ratio]24.4 kg/w0XfszbbgghFayette County Memorial Hospital04-24-2025 10:30-0400Body .33 kgF[facility] County Memorial Hospital04-24-2025 10:30-0400Diastolic blood stcjodcg32 mm[Hg][facility] 07-18-2024 10:30-0400Heart rate83 /[facility] 07-18-2024 10:30-0400Respiratory rate12 /[facility] 07-18-2024 10:30-0400Systolic blood epfvtmys526 mm[Hg][facility]04-10-2025 10:13-0400Body esoqmy717.3 cmZen Rdz [employer] Work Phone: [phone] [place], [place] 0406804-10-2025 10:13-0400Body mass index (BMI) [Ratio]27.47 kg/i8WsvinZen Rdz DO Work Phone: [phone] [place], [place] 0406804-10-2025 10:13-0400Body lgyoiy17.37 kgZen Rdz DO Work Phone: [phone] [place], [place] 0406803-13-2025 09:59-0400Body cyutil212.3 cmZen Rdz DO Work Phone: [phone] [place], [place] 0406803-13-2025 09:59-0400Body mass index (BMI) [Ratio]27.62 kg/f7MfbjyZen Rdz DO Work Phone: [phone] [place], [place] 0406803-13-2025 09:59-0400Body vckjel88.82 kgZen Rdz DO Work Phone: [phone] [place], [place] 0406802-27-2025 11:15-0500Hourly Rounding Zen Rdz [address] [place], [place] [address]Comment on above:Result Comment: reviewed discharge ppwork, no qjsqejkab31-24-3912 11:15-0500Promise to ReturnZen Rdz [address] [place], [place] 5594702-27-2025 10:00-0500Heart rate80 /Isabela Rdz [address] [place], [place] 5594702-27-2025 10:00-0500 Hourly RoundingZen Rdz [address] [place], [place] [address]Comment on above:Result Comment: pt tolersted ambulating very well to bathroom, at bedside 05-23-2024 10:00-0500Promise to ReturnZen Rdz [address] [place], [place] 5594702-27-2025 10:00-0500 Respiratory rate17 /minZen Rdz [address] [place], [place] 5044002-27-2025 09:31-5353EaJ8% (BldA) [Mass fraction]97 %Zen Rdz [address] [place], [place] 5044002-27-2025 09:21-0500 Hourly RoundingZen Rdz [address] [place], [place] [address]Comment on above:Result Comment: noted to have slight swelling to upper left toeusq75-68-6095 09:18-0500 Promise to ReturnZen Rdz [address] [place], [place] 5594702-27-2025 09:00-0500Blood Pressure LocationZen Rdz [address] [place], [place] 5594702-27-2025 09:00-0500 Diastolic blood mm[Hg]Zen Rdz [address] [place], [place] 5594702-27-2025 09:00-0500Mean blood ekfngpvt50 mm[Hg]Zen Rdz [address] [place], [place] 5594702-27-2025 09:00-0500 Systolic blood grtmtats774 mm[Hg]Zen Rdz [address] [place], [place] 5594702-27-2025 08:00-0500 Diastolic blood yyjnuzik65 mm[Hg]Zen Rdz [address] [place], [place] 5594702-27-2025 08:00-0500Mean blood mrebdgct38 mm[Hg]Zen Rdz [address] [place], [place] 5594702-27-2025 08:00-0500 Systolic blood lkunqwel993 mm[Hg]Zen Rdz [address] [place], [place] 5594702-27-2025 07:40-0500gluc 161 mg/dLZen Rdz [address] [place], [place] 5594702-27-2025 07:00-0500Body fxjwuxlzcaj63.88 [degF]Zen Rdz [address] [place], [place] 5594702-27-2025 07:00-0500 Diastolic blood lyzubedv66 mm[Hg]Zen Rdz [address] [place], [place] 5594702-27-2025 07:00-0500Mean blood clzwmmit05 mm[Hg]Zen Rdz [address] [place], [place] 5044002-27-2025 07:00-0500 Systolic blood huquxoix202 mm[Hg]Zen Rdz [address] [place], [place] 5044002-27-2025 06:27-0500Heart rate74 /Isabela Rdz [address] [place], [place] [id number] 06:27-0500 Respiratory rate16 /Isabela Rdz [address] [place], [place] [id number] 05:43-0500Heart rate73 /Isabela Rdz [address] [place], [place] [id number] 05:43-0500 Respiratory rate12 /Isabela Rdz [address] [place], [place] [id number] 04:11-0500Body dtaijeabvqr94.06 [degF]Zen Rdz [address] [place], [place] [id number] 04:11-0500Heart rate77 /Isabela Rdz [address] [place], [place] [id number] 20:00-0500Body dmfaiexkinc74.42 [degF]Zen Rdz [address] [place], [place] [id number] 16:55-0500Body refutybxway87.06 [degF]Zen Kajal [address] [place], [place] [id number] 15:55-0500Body stzgphzejpd06.24 [degF]Zen Rdz [address] [place], [place] [id number] 15:10-0500Body zurgajtpqtn12.24 [degF]Zen Rdz [address] [place], [place] [id number] 12:53-0500gluc 183 mg/dLReynaldodebra Kajal [address] [place], [place] [id number] 08:00-0500Mean blood mskqfpyd35 mm[Hg]Zen Kajal [address] [place] [place], [place] 5594702-26-2025 07:59-0500Body asmykqwwafu34.52 [degF]Zen Rdz [address] [place], [place] 5594702-26-2025 07:59-0500Mean blood knniohpo85 mm[Hg]Zen Rdz [address] [place], [place] 5594702-20-2025 09:46-0500Body pmafhl283.3 cmZen Kajal MIJARES Work Phone: [phone] [place], [place] 0406802-20-2025 09:46-0500Body mass index (BMI) [Ratio]27.62 kg/f3Jqcdi Kajal MIJARES Work Phone: [phone] [place], [place] 0406802-20-2025 09:46-0500Body vnocar89.82 kgZen Kajal MIJARES Work Phone: [phone] [place], [place] 0406802-04-2025 13:28-0500Diastolic blood wnyfwywx23 mm[Hg]Zen Rdz [address] [place], [place] 5594702-04-2025 13:28-0500Heart rate69 /minZen Rdz [address] [place], [place] 5594702-04-2025 13:28-0500Mean blood qicrbnxj83 mm[Hg]Zen Rdz [address] [place], [place] 5594702-04-2025 13:28-0500 Systolic blood mhoaiadm783 mm[Hg]Zen Rdz [address] [place], [place] 5594702-04-2025 13:27-0500Heart rate74 /Isabela Rdz [address] [place], [place] 5594702-04-2025 13:27-0500 Respiratory rate18 /minZen Rdz [address] [place], [place] 5594702-04-2025 13:27-6525DgX0% (BldA) [Mass fraction]97 %Zen Rdz [address] [place], [place] 5594702-04-2025 13:27-0500 Diastolic blood iicmiypu61 mm[Hg]Zen Rdz [address] [place], [place] 5594702-04-2025 13:27-0500Mean blood mahjsgzp11 mm[Hg]Zen Rdz [address] [place], [place] 5594702-04-2025 13:27-0500 Systolic blood wssjcrno021 mm[Hg]Zen Rdz [address] [place], [place] 5594712-23-2024 10:32-0500Body .3 cmAllison Petznick DO Work Phone: no[facility] CenterTkmlsihorf32-78-6334 10:32-0500Body mass index (BMI) [Ratio]27.62 kg/u7Ukoyady Petznick DO Work Phone: noNorth[facility] CenterAfliablwii93-25-2037 10:32-0500Body temperature 98.49 [degF]Rose Petznick DO Work Phone: no[facility] CenterOikbimwfvj87-35-5695 10:32-0500Body fziiro85.82 kgAllison Petznick DO Work Phone: no[facility] CenterMmkoatnnbp75-55-6850 10:32-0500Diastolic blood zlnyegtg83 mm[Hg]Rose Petznick DO Work Phone: no[facility] CenterMzjfwlmsrj20-35-2714 10:32-0500Heart rate65 /min Rose Petznick DO Work Phone: no[facility] CenterNrhisacxfm54-45-8238 10:32-2289NfV3% (BldA) [Mass fraction]98 %Rose Petznick DO Work Phone: noNorth[facility] CenterUjncodmbzi80-19-9717 10:32-0500Systolic blood uyagromt303 mm[Hg]Rose Petquiqueick DO Work Phone: NONorth[facility] CenterChckhwbiki48-64-4082 07:55-0400Body pebiwo269.3 cmZen Rdz DO Work Phone: NON[facility] CenterKrnwbmhxlc19-73-6730 07:55-0400Body mass index (BMI) [Ratio]27.62 kg/b5DpkxrZen Rdz DO Work Phone: NONorth[facility] CenterEforckujux46-13-5640 07:55-0400Body temperature 97.5 [degF]Zen Rdz DO Work Phone: NONorth[facility] CenterCdmejctpzb28-52-1606 07:55-0400Body euxhvq41.82 kgZen Rdz DO Work Phone: NON[facility] CenterMljbowxvax30-43-7071 09:58-0400Body .3 cmAlala Dick DO Work Phone: noNorth[facility] CenterSvpiedzeap52-10-5308 09:58-0400Body mass index (BMI) [Ratio]27.62 kg/g0Yectftj Petznick DO Work Phone: NON[facility] CenterWqltziovac16-92-9515 09:58-0400Body temperature 99.1 [degF]Rose Petznick DO Work Phone: [place] [address]Fassdsowdv38-38-2772 09:58-0400Body icvnyd75.82 kgAllannie Petznick DO Work Phone: [place] [address]Jaeuhnjypv01-39-3579 09:58-0400Diastolic blood efgldjqw72 mm[Hg]Rose Petznick DO Work Phone: [place] [address]Xcbdkhvqpq61-83-9611 09:58-0400Heart rate87 /min Rose Petznick DO Work Phone: [facility] HospitalIuizwipabx47-20-7984 09:58-5205BuW1% (BldA) [Mass fraction]95 %Rose Dick DO Work Phone: [facility] HospitalYuwpskevut23-94-8547 09:58-0400Systolic blood xuoxjfha007 mm[Hg]Rose Dick DO Work Phone: [facility] HospitalAcdendaznf11-51-8411 13:41-0400Body .8 cmDO Max Ball Work Phone: [facility]06-19-2024 13:41-0400 Body mass index (BMI) [Ratio]27.3 kg/m2DO Max Ball Work Phone: [facility]06-19-2024 13:41-0400 Body pgawyb79.23 kgDO Max Ball Work Phone: [facility]06-19-2024 13:41-0400 Diastolic blood adwolsbf12 mm[Hg]DO Max Ball Work Phone: [facility]06-19-2024 13:41-0400 Heart togi327 /Randy Santana Ball Work Phone: [facility]06-19-2024 13:41-0400 Respiratory rate12 /Randy Santana Ball Work Phone: [facility]06-19-2024 13:41-0400 Systolic blood blmupqtu514 mm[Hg]DO Max Ball Work Phone: [facility]04-12-2024 11:07-0400 Body tadblt314.8 cmF[facility]04-12-2024 11:07-0400Body mass index (BMI) [Ratio]27.1 kg/f5ZldewcnjaFayette County Memorial Hospital04-12-2024 11:07-0400Body feyfiz69.95 kgF[facility] County Memorial Hospital04-12-2024 11:07-0400Diastolic blood guxxtgnd15 mm[Hg][facility] 07-07-2023 11:07-0400Heart rate96 /[facility] 07-07-2023 11:07-0400Respiratory rate12 /[facility] 07-07-2023 11:07-0400Systolic blood bywaaadz470 mm[Hg][facility]01-12-2024 12:06-0500Heart rate71 /Isabela Rdz [address] [place], [place] 5044001-12-2024 12:06-8746OoK2% (BldA) [Mass fraction]98 %Zen Rdz [address]01-12-2024 12:06-0500 Diastolic blood cwuozulb20 mm[Hg]Zen Kajal [address] [place], [place] 5044001-12-2024 12:06-0500Mean blood idasltmv67 mm[Hg]Zen Kajal [address] [place], [place] 5044001-12-2024 12:06-0500 Systolic blood qzkqdcaf307 mm[Hg]Zen Kajal [address]01-12-2024 12:06-0500 Respiratory rate16 /Isabela Rdz [address] [place], [place] 5044001-12-2024 11:16-0500Heart rate70 /Isabela Rdz [address] [place], [place] 5044001-12-2024 11:16-6216OsT9% (BldA) [Mass fraction]95 %Zen Kajal [address] [place], [place] 5594701-12-2024 11:14-0500 Respiratory rate16 /Isabela Rdz [address] [place], [place] 5044001-12-2024 11:14-0500Body blbcsjarene58.34 [degF]Zen Kajal [address] [place], [place] 5044001-12-2024 11:13-0500 Diastolic blood tnvdyggc43 mm[Hg]Zen Rdz [address] [place], [place] 5044001-12-2024 11:13-0500Mean blood qldzaszx23 mm[Hg]Zendebra Rdz [address] [place], [place] 5044001-12-2024 11:13-0500 Systolic blood ekiljgne829 mm[Hg]Zen Rdz [address] [place], [place] 5044001-12-2024 11:00-0500 Diastolic blood lffkyazu27 mm[Hg]Zen Rdz [address] [place], [place] 5044001-12-2024 11:00-0500Mean blood gcgeyjvs08 mm[Hg]Zen Rdz [address] [place], [place] 5044001-12-2024 11:00-0500 Respiratory rate14 /Khadijahdebra Rdz [address] [place], [place] 5044001-12-2024 11:00-5252BiS9% (BldA) [Mass fraction]92 %Zen Rdz [address] [place], [place] 5044001-12-2024 11:00-0500 Systolic blood ybvdniyi807 mm[Hg]Zen Rdz [address] [place], [place] 5044001-12-2024 10:50-0500Mean blood hxcozxup83 mm[Hg]Zen Kajal [address] [place], [place] 5044001-12-2024 10:50-0500 Respiratory rate12 /Isabela Rdz [address] [place], [place] 5594701-12-2024 10:45-0500Mean blood obepparj52 mm[Hg]Zen Kajal [address] [place], [place] 5594701-12-2024 10:45-0500 Respiratory rate12 /Isabela Rdz [address] [place], [place] 5044001-12-2024 10:35-0500Body .16 [degF]Zen Kajal [address] [place], [place] 5044001-12-2024 07:37-0500Mean blood hsfiwtzv75 mm[Hg]Zen Rdz [address] [place], [place] 5044001-12-2024 07:37-0500Blood Pressure LocationZen Rdz [address] [place], [place] 5044001-12-2024 07:36-0500 Respiratory rate16 /Isabela Rdz [address] [place], [place] 5044001-12-2024 07:36-0500Body csrpndvuwvj67.52 [degF]Zen Rdz [address] [place], [place] 5044001-12-2024 07:36-0500Heart rate66 /Isabela Rdz [address] [place], [place] 5044001-12-2024 07:35-0500Blood Pressure LocationZen Rdz [address] [place], [place] 5044012-28-2023 08:29-0500 Diastolic blood jrhjyrwy12 mm[Hg]Zen Rdz [address] [place], [place] 5044012-28-2023 08:29-0500Heart rate64 /Isabela Rdz [address] [place], [place] 5044012-28-2023 08:29-0500Mean blood dupgrbyd368 mm[Hg]Zen Rdz [address] [place], [place] 5044012-28-2023 08:29-0500 Systolic blood ojokmtnt534 mm[Hg]Zen dRz [address] [place], [place] 5044012-28-2023 08:29-0500Heart rate74 /Isabela Rdz [address] [place], [place] 5044012-28-2023 08:29-6565BtR9% (BldA) [Mass fraction]99 %Zen Rdz [address] [place], [place] 5044012-28-2023 08:28-0500 Respiratory rate18 /Isabela Rdz [address] [place], [place] 5044012-28-2023 08:28-0500Body gcrfvesgfyf83.88 [degF]Zen Rdz [facility]12-28-2023 08:28-0500 Diastolic blood ynflbnfr60 mm[Hg]Zen Rdz [facility]12-28-2023 08:28-0500Mean blood pkyqseos074 mm[Hg]Zen Rdz [facility]12-28-2023 08:28-0500 Systolic blood mdrxjyol688 mm[Hg]Zen Rdz [facility]12-08-2023 08:45-0500Body tazsxz132.8 cmBenjamin Ball Other [facility] [address] [employer] Other 12-08-2023 08:45-0500Body mass index (BMI) [Ratio] 26.43 kg/c2Njjpgqru Ball Other [facility] [employer] Other 12-08-2023 08:45-0500Body zizpmk26.55 kgBenjamin Ball Other [facility] [employer] Other 12-08-2023 08:45-0500Diastolic blood nlnwofmc22 mm[Hg] Max Ball Other [facility] Other 12-08-2023 08:45-0500Respiratory rate12 /minBenjamin Ball Other [facility] Other 12-08-2023 08:45-0500Systolic blood azfmebgi787 mm[Hg] Max Ball Other [facility] [employer] Other 08-04-2023 14:15-0400Body .8 cmBenjamin Ball Other [employer] Other 08-04-2023 14:15-0400Body mass index (BMI) [Ratio] 26.31 kg/t1Zgqfgxrq Ball Other [employer] Other 08-04-2023 14:15-0400Body .19 kgBenjamin Ball Other [employer] Other 08-04-2023 14:15-0400Diastolic blood jbcnovrz43 mm[Hg] Max Ball Other [employer] Other 08-04-2023 14:15-0400Respiratory rate12 /minBenjamin Ball Other [employer] Other 08-04-2023 14:15-0400Systolic blood hdkxiusr474 mm[Hg] Max Ball Other [employer] Other 04-26-2023 16:00-0400Body .8 cmBenjamin Ball Other [employer] Other 04-26-2023 16:00-0400Body mass index (BMI) [Ratio]27 kg/u4Ykzghitf Ball Other [employer] Other 04-26-2023 16:00-0400Body kqkeuw16.37 kgBenjamin Ball Other [employer] Other 04-26-2023 16:00-0400Diastolic blood svuysdrm51 mm[Hg] Max Ball Other [employer] Other 04-26-2023 16:00-0400Respiratory rate12 /minBenjamin Ball Other [employer] Other 04-26-2023 16:00-0400Systolic blood mlyldrth637 mm[Hg] Max Ball Other [employer] Other 04-04-2023 14:15-0400Body kfcerc890.8 cmBenjamin Ball Other [employer] Other 04-04-2023 14:15-0400Body mass index (BMI) [Ratio]26.4 kg/h5Yjqcfvim Ball Other [employer] Other 04-04-2023 14:15-0400Body erjkrk33.46 kgBenjamin Ball Other [employer] Other 04-04-2023 14:15-0400Diastolic blood bddcsjer85 mm[Hg] Max Ball Other [employer] Other 04-04-2023 14:15-0400Respiratory rate12 /minBenjamin Ball Other [employer] Other 04-04-2023 14:15-0400Systolic blood tcedpefw270 mm[Hg] Max Ball Other [employer] Other 03-28-2023 11:15-0400Body vdxeuq068.8 cmBenjamin Ball Other [employer] Other 03-28-2023 11:15-0400Body mass index (BMI) [Ratio] 26.69 kg/v9Dtfbsyef Ball Other [employer] Other 03-28-2023 11:15-0400Body lekzey92.37 kgBenjamin Ball Other [facility] [employer] Other 03-28-2023 11:15-0400Diastolic blood wwukkvtk14 mm[Hg] Max Tucker Other [facility] [employer] Other 03-28-2023 11:15-0400Respiratory rate12 /minBesalvadorgurpreet Tucker Other [facility] [employer] Other 03-28-2023 11:15-0400Systolic blood edlusiui847 mm[Hg] Max Tucker Other [employer] Other Encounters Encounter DateEncounter TypeCare ProviderFacilityStart: 01-13-2025 End: 72-63-2242Sukpgyg encounter procedureZen Rdz Work Phone: [facility] OrthopaedicsComment on above:Left wrist pain (Primary Dx)Start: 01-13-2025 End: 72-50-3250gdelxduxlyDSVSA A BROWNNot AvailableStart: 01-13-2025 End: 64-95-2086fqerfjeysrKSUBP A BROWNNot AvailableStart: 12-25-2024 End: 70-52-1705veqdenmfxrBetnknqf Garrett DO Work Phone: [facility] Work Phone: Start: 12-25-2024 End: 85-48-7857Yywbtum encounter procedureBechristi Tucker DO-[facility] Work Phone: Start: 11-18-2024 End: 57-56-5578Yfsbuw outpatient visit 25 minutesVapeyman Kraus MD Work Phone: OrthopaedicsComment on above: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); S/P shoulder replacement, leftStart: 11-18-2024 End: 33-18-0795yxeaeaxyxyHQXFA ENTEZARIFacility:[facility] Centertart: 11-04-2024 End: 00-72-7697Geqfca Harpal Daniel Rdz DO Work Phone: [facility] OrthopaedicsStart: 11-04-2024 End: 92-32-6918Wbfcnp Harpal Rdz DO Work Phone: N[facility] OrthopaedicsStart: 11-04-2024 End: 66-95-9937Qsdibxy encounter procedureZen Rdz DO Work Phone: [facility] OrthopaedicsComment on above:Status post total shoulder replacement, left (Primary Dx)Start: 11-04-2024 End: 64-52-5298mfvkvrjmdcVHBSF Daniel KAJALNot AvailableStart: 34-30-0033Mtq-patient / Non-visitBechristi Garrett -[facility] Work Phone: Start: 10-28-2024 End: 12-33-6246wczmosdlxzFGEFO ENTEZARIFacility:[facility] Centertart: 10-28-2024 End: 68-59-0951Epvlse outpatient new 45 minutesBrielle Kraus MD Work Phone: OrthopaedicsComment on above:Left shoulder pain, unspecified chronicity (Primary Dx); S/P shoulder replacement, left; Loose orthopedic implant, initial encounter; Instability of left shoulder jointStart: 10-28-2024 End: 91-87-0106ndbfoefczjOOOLG ENTEZARIFacility:[facility] Centertart: 10-02-2024 End: 34-29-9006pmqobsuoirBewxpibv Garrett DO Work Phone: [facility] Work Phone: Start: 10-02-2024 End: 55-28-0967Ablhwlm encounter procedureBechristi Tucker DO-[facility] Work Phone: Start: 09-26-2024 End: 41-74-3776Vyvveer encounter procedureZen Rdz DO Work Phone: noms NB ORTHOComment on above:Status post total shoulder replacement, left (Primary Dx)Start: 09-26-2024 End: 62-62-3203cnjwibtfntEIILA A BROWNNot AvailableStart: 09-26-2024 End: 87-23-4050Pmuztq flowsTy Daniel Rdz DO Work Phone: [phone] ORTHOStart: 09-26-2024 End: 04-34-2274Rvbfqz flowsheetZen Daniel Rdz DO Work Phone: [phone] ORTHOStart: 09-24-2024 End: 74-57-1273Wzgatnxad Result EncounterZen Rdz DO Work Phone: [facility] External Department UnsolicitedStart: 09-24-2024 End: 62-48-3267Kkdsyudhh Result EncounterZen Sanchez Kajal DO Work Phone: [facility] External Department UnsolicitedStart: 09-24-2024 End: 30-01-3605gwuhxrewudXMZulma RdzFacility:FTMCStart: 09-24-2024 End: 17-14-5800Zmjfqxh encounter procedureZen Rdz [facility] Start: 09-13-2024 End: 38-24-3343Msgsatz encounter Madai GIRARD Work Phone: [facility] NB ORTHOComment on above:Left shoulder pain, unspecified chronicity (Primary Dx); Status post total shoulder replacement, left; Acute postoperative pain of left shoulderStart: 09-13-2024 End: 85-05-4595gzbzfqceulATTR D HILLSNot AvailableStart: 09-05-2024 End: 12-97-5192Miduvn Harpal Rdz DO Work Phone: [phone] ORTHOStart: 09-05-2024 End: 88-05-2404Dhdpyk Harpal Rdz DO Work Phone: [phone] ORTHOStart: 09-05-2024 End: 11-31-7226Cmxbuaf encounter procedureZen Rdz DO Work Phone: [facility] NB ORTHOComment on above:Status post total shoulder replacement, left (Primary Dx)Start: 09-05-2024 End: 40-46-5700jjwhxnlzfjWBGOU A BROWNNot AvailableStart: 08-13-2024 End: 02-91-5885Bmrpcgd encounter procedureBengurpreet Garrett DO-[facility] Work Phone: Start: 07-18-2024 End: 63-30-6069dycscziwgvKloxbepctMorrow County Hospital Work Phone: Start: 07-18-2024 End: 81-35-5877Nevjvun encounter procedureFircarilion [facility] Work Phone: Start: 37-36-9689Uod-patient / Non-visit[facility] Work Phone: Start: 07-04-2024 End: 04-16-3864Lzpkocj encounter procedureJason Daniel Kajal MIJARES Work Phone: noms NB ORTHOComment on above:Status post total shoulder replacement, left (Primary Dx)Start: 07-04-2024 End: 63-91-2994ecauvwmjjaRDZBE A BROWNNot AvailableStart: 07-04-2024 End: 33-09-9036zkbuqhhrrpQDSVS A BROWNNot AvailableStart: 06-14-2024 End: 83-58-1515fzngqfroyePRGEKUS M PETZNICKNot AvailableStart: 06-06-2024 End: 19-80-6811Inzkvtz encounter procedureJason A Kajal Work Phone: [facility] NB ORTHOComment on above:Status post total shoulder replacement, left (Primary Dx)Start: 06-06-2024 End: 04-85-4893zefjmirezbTDVQX A BROWNNot AvailableStart: 06-06-2024 End: 39-30-2540qlomyipiyhHVOJC A BROWNNot AvailableStart: 05-23-2024 End: 38-51-0745Glyacyfik Result EncounterJason A Kajal DO Work Phone: [facility] External Department UnsolicitedStart: 05-23-2024 End: 45-79-2931Rkkuykgbn Result EncounterJason A Kajal DO Work Phone: NOJO External Department UnsolicitedStart: 05-22-2024 End: 99-87-8187Wzuqfslng Result EncounterZen Rdz DO Work Phone: NOVF External Department UnsolicitedStart: 05-22-2024 End: 60-92-4697Nliemoduo Result EncounterZen Rdz DO Work Phone: [facility] External Department UnsolicitedStart: 05-22-2024 End: 27-38-5898yibsaycmioYR Zen Sanchez KajalFacility:FTMCStart: 05-22-2024 End: 24-72-1892Eflnnir encounter procedureZen Daniel Kajal [facility] Start: 05-16-2024 End: 59-72-1481Xxieyf flowsTy Rdz DO Work Phone: [facility]OMS ORTHOStart: 05-16-2024 End: 35-68-9879Nsnadd flowsTy Rdz DO Work Phone: [facility] ORTHOStart: 05-16-2024 End: 69-27-2202Zurrdsh encounter procedureZen Rdz DO Work Phone: NOM[facility] NB ORTHOComment on above:Arthritis of left shoulder region (Primary Dx)Start: 05-16-2024 End: 66-11-9760crreyibggpVTZFD A BROWNNot AvailableStart: 04-30-2024 End: 15-67-9562Miottwqdn Result EncounterZen Rdz DO Work Phone: NOFM External Department UnsolicitedStart: 04-30-2024 End: 62-59-6045Nlqupfqqp Result EncounterZen Rdz DO Work Phone: [facility] External Department UnsolicitedStart: 04-30-2024 End: 28-90-2494tppncphdaaNgolx Daniel KajalFacility:FTMCStart: 04-30-2024 End: 34-45-9954Zlilqiv encounter procedureZen Daniel Kajal [facility] Start: 03-18-2024 End: 95-97-9825Bqbmma outpatient visit 25 minutesAllannie Dick DO Work Phone: noMS SWS FM 230Comment on above:Type 2 diabetes mellitus without complication, without long-term current use of insulin (CMS/HCC)Start: 03-18-2024 End: 61-65-1315bvhjkfgnitNRZZTUG M PETZNICKNot AvailableStart: 53-60-9956Pnuvnuz encounter statusSt. John of God Hospitaltart: 12-19-2023 End: 63-01-6440Ahvvxqw encounter procedureReynaldodebra Sanchez Kajal DO Work Phone: noms NB ORTHOComment on above:Arthritis of left shoulder region (Primary Dx)Start: 12-18-2023 End: 20-89-5515Hqizle outpatient visit 25 minutesAllannie Dick DO Work Phone: noMS SWS FM 230Comment on above:Type 2 diabetes mellitus without complication, without long-term current use of insulin (CMS/HCC) (Primary Dx); Type 2 diabetes mellitus with hyperglycemia, without long-term current use of insulin (CMS/HCC)Start: 09-13-2023 End: 85-74-6406kpewuxygbaDG Max Garrett Work Phone: [facility] Work Phone: Start: 09-13-2023 End: 13-67-2592Lvdpwdr encounter procedureDO Max Tucker Work Phone: [facility] Work Phone: Start: 08-16-2023 End: 59-22-9432Lquwteg encounter procedureDO Max Tucker Work Phone: [facility] [address] Work Phone: Start: 08-16-2023 End: 29-53-7234crvofcwiyxAE Max Tucker Work Phone: [facility] Work Phone: Start: 07-20-2023 End: 98-88-8046hqmsqypgkdCdmlsmlm Ball Other [employer] Other Start: 53-40-0364Kemqqwfmi encounterBengurpreet Tucker Medical ClinicStart: 07-07-2023 End: 27-84-8596edngfglkjwNobcxtvvsMorrow County Hospital Work Phone: Start: 07-07-2023 End: 32-21-4988Hukptqh encounter procedureFirkellys Physician [facility] Work Phone: Start: 38-92-8487Dqg-patient / Non-visitUn[facility] Health [facility] [facility] Work Phone: Start: 04-25-2023 End: 05-10-3848ccobgcxdomLvcnslty Ball Other [employer] Other Start: 16-87-5806Btjlnupea encounterBengurpreet Tucker Medical ClinicStart: 94-85-4895Jbxdwsq encounter procedureRachel Physician Group-Start: 04-07-2023 End: 91-32-5773Rjebwcshw to same day surgery Jessi Rdz [facility] Start: 03-23-2023 End: 19-45-5689Ukfkzgb encounter procedureZen Rdz [facility] Start: 03-06-2023 End: 60-02-8907tnugdalmzsCiloumyg Ball Other [employer] Other Start: 78-63-5334Ucxtgfquk encounterBechristi Tucker Medical ClinicStart: 03-03-2023 End: 77-90-6897zmcewwfhxkBluooxuw Ball Other [employer] Other Start: 95-86-1896Saqsfegwe for general adult medical examination without abnormal findingsBengurpreet GouldG [facility] ClinicStart: 55-20-8364Dqvasttv preventive med est patient 40-64yrsBengurpreet GouldG [facility] ClinicStart: 02-20-2023 End: 45-92-9140dejbuwfeozJeblnklr Ball Other [employer] Other Start: 04-00-1001Hmoxdnkvy encounterBengurpreet GouldG [facility] ClinicStart: 11-25-2022 End: 58-22-9940pbeoxascjvJiaxtmme Ball Other [employer] Other Start: 57-65-4540Diikjrb evaluation of patient and reportBechristi GouldG [facility] ClinicStart: 11-01-2022 End: 68-20-9861pglhbsdkckSpbzagpx Ball Other [employer] Other Start: 00-11-1687Bxndzwaaw encounterBenjamin Luis FernandoG [facility] ClinicStart: 10-28-2022 End: 94-53-8701canabeshmsDfdrqqpw Ball Other [employer] Other Start: 00-02-3840Bqzkhs outpatient visit 25 minutes Max Luis FernandoG [facility] ClinicStart: 07-20-2022 End: 52-28-7175uwrqsxopntEolbmooo Ball Other [employer] Other start: 80-14-6481Huwewx outpatient visit 25 minutes Max BallALLG [facility] ClinicStart: 07-11-2022 End: 93-93-2217ddmcflputkIxugqvnv Ball Other [employer] Other Start: 84-47-4301Hlapfzxyj encounterBenjamin BallFPG [facility] ClinicStart: 07-06-2022 End: 65-68-7148bcvcrgklweHbokijso Ball Other [employer] Other Start: 02-41-4218Ncbldcvht encounterBenjamin BallFPG [facility] ClinicStart: 06-28-2022 End: 92-52-8686szxgmtxhikFwuynatp Ball Other [employer] Other Start: 03-45-2292Wrhnjo outpatient visit 15 minutes Max BallFPG [facility] ClinicStart: 06-21-2022 End: 89-33-1693huimatfvrsRkuvpymq Ball Other [employer] Other Start: 14-92-5513Fmhbjx outpatient visit 25 minutes Max BallFPG [facility] ClinicStart: 06-20-2022 End: 46-84-3822jkerpsznzfIhuxzklz Ball Other [employer] Other Start: 41-02-2912Zlhbasooi encounterBenjamin BallFPG [facility] ClinicStart: 06-19-2022 End: 19-00-6018xqbrqtkiwlBE MAX BALLFacility:S4Cvbto: 98-25-7756Wkzxgwrfk for general adult medical examination without abnormal findingsDR MAX GARRETT [facility]: 02-19-[facility]22 End: 56-48-2394puuytjkxfnPS MAX BALLFacility:Y9Ghfbw: 02-19-2022 End: 13-52-2712Wysydknzq for general adult medical examination without abnormal findingsDR MAX BALLFacility:H1 Procedures DateProcedureProcedure DetailPerforming ClinicianStart: 05-56-3718Kyrdk wrist complete minimum 3 Tori Rdz DO Work Phone: Start: 72-92-9320Igne count misc body fluids w/differential countVapeyman Kraus MD Work Phone: Start: 95-98-1051Bxs bact xcpt urine blood/stool aerobic isolBrielle Kraus MD Work Phone: [phone]: 65-94-4360UPZVAYVQ FL,CRYSTAL ID/STAFF Faby Kraus MD Work Phone: [phone]: 70-28-3201UEHLKRAR FLUID MANUAL DIFFBrielle Kraus MD Work Phone: Start: 58-91-0247Durqojuatmtlsg aspir&/inj major jt/bursa w/o Patrick Kraus MD Work Phone: [phone]: 39-61-6839IF UPPER EXTREMITY W/ CONTRAST LEFT Zen A VouchedFor DO Work Phone: Start: 25-64-4787FZ INJ SHOULDER ARTHROGRAM LEFTJason A VouchedFor DO Work Phone: Start: 45-54-0114HHBA CBC W/ AUTO DIFFJason A Brown DO Work Phone: Start: 32-59-2125Naauw shoulder complete minimum 2 viewsTodd D Zunilda PA Work Phone: Start: 91-67-6620Ovmyb shoulder complete minimum 2 viewsJason A Brown DO Work Phone: Start: 33-65-2399Tnaun shoulder complete minimum 2 viewsJason A Brown DO Work Phone: Start: 10-20-2018Whtsk shoulder complete minimum 2 viewsJason A Brown DO Work Phone: Start: 99-10-7279PXOG CBC W/ AUTO DIFFJason A Brown DO Work Phone: Start: 14-21-8061MR SHOULDER COMPLETE LEFTJason A Brown DO Work Phone: Start: 62-29-2400ZIIG CAPILLARY GLUCOSE POCJason A Brown DO Work Phone: Start: 70-31-9851Qygqdbvynpsw of left shoulderJason Brown Start: 27-57-3415SP UPPER EXTREMITY W/O CONTRAST LEFT Zen Rdz DO Work Phone: Start: 39-94-6263RR WITH CULT RFLXZen Rdz DO Work Phone: Start: 92-51-0485Sqlilarabt glycosylated b5qWxulrvvRose Dick [employer] Work Phone: Start: 92-25-4173Gwfbwqydau glycosylated v7pAqdujusannie Dick DO Work Phone: Start: 73-53-4254Ozxjgbidjcc of shoulder with biceps tenodesisZen Rdz Comment on above:with biceps tendonesis, subcromial decompression, and extensive debridmentStart: 93-90-6790TTO screeningSHAIKH FAWWADComment on above:Performed By: #### PSASC #### [facility] [address] [place] [address] Dr. Wai VallejoStart: 77-79-4308BmrdcaritwhdxqgyvdfpnjwsetUblig Brown [employer] Comment on above:Egd/ColonoscopyStart: 13-26-6563Otshll of umbilical herniaZen Rdz [employer] Start: 81-75-7589SxxjdcrrihdaWxcbt Brown [employer] Start: 61-59-8163FovucftmnyzOatqcoc Jayshree [employer] Work Phone: Start: 97-50-4034BqsqmzqjkjvZfqia Brown [employer] Start: 02-13-9294NeekitquurlwemiomyfayvubqcLniav Brown [employer] Start: 67-47-4286ZcthqvysnglckyfWwzkk Brown [employer] Arthroscopy of kneeZen Rdz Arthroscopy of kneeZen Rdz Cervical arthrodesisZen Rdz [employer] Depression screeningBenjamin Ball Other Plan of Treatment DateCare ActivityDetailAuthorStart: 45-96-7202Uxonutlfg vaccinationNOMS HealthcareStart: 11-18-2024 End: 77-37-9605Vgxryyj encounter gaedcbdza98/25/2025 9:45 AM EDT Office Visit Orthopaedics [address] [address] Brielle Kraus MD [address] [place], [place] [id number] infection workup on 11/18 at 0945 for 30 mins apt, thank youOrthopaedics Comment on above:infection workup on 11/18 at 0945 for 30 mins apt, thank you Start: 11-04-2024 End: 53-02-4925Yqzkyng encounter /11/2025 10:30 AM EDT Office Visit [facility] [place] [facility] [address] [facility] [place] [phone] Zen Rdz, [address] [place] [address] ArrivedNOMS [place] OrthopaedicsComment on above:ArrivedStart: 09-26-2024 End: 69-07-9526Boxadih encounter procedureNOMS NB ORTHOComment on above:Arrived Start: 09-16-2024 End: 08-77-7384Rpfomdi encounter sxgogpxyh42/23/2025 9:45 AM EDT Office Visit [facility] [address] [place] [phone] Rose Dick, DO [address] [place] [address] [facility] FM 230Start: 09-05-2024 End: 09-05-2025 reactive protein [Mass/volume] in Serum or PlasmaC-reactive protein Lab Routine Status post total shoulder replacement, left Expected: 09/05/2024 (Approximate), Expires: 09/05/2025NOMS HealthcareComment on above: Expected: 09/05/2024 (Approximate), Expires: 09/05/2025Start: 09-05-2024 End: 18-20-4719NOR W Auto Differential panel - BloodCBC auto differential Lab Routine Status post total shoulder replacement, left Expected: 09/05/2024 (Approximate), Expires: 09/05/2025NOCT HealthcareComment on above:Expected: 09/05/2024 (Approximate), Expires: 09/05/2025Start: 09-05-2024 End: 71-28-2016Zxnpsqbgtbu sedimentation rateSedimentation rate, automated Lab Routine Status post total shoulder replacement, left Expected: 09/05/2024 (Approximate), Expires: 09/05/2025NOCT HealthcareComment on above:Expected: 09/05/2024 (Approximate), Expires: 09/05/2025Start: 09-05-2024 End: 97-79-0177Hziqrnekhya-6Interleukin-6 Lab Routine Status post total shoulder replacement, left Expected: 09/05/2024 (Approximate), Expires: 09/05/2025[facility] Work Phone: Comment on above:Expected: 09/05/2024 (Approximate), Expires: 09/05/2025Start: 09-05-2024 End: 22-33-7247Miaqbdj encounter tbptehhve91/12/2025 9:30 AM EDT Office Visit [facility] [address] [place] [phone] Zen Rdz, [address] [place] [place] [address] [facility] ORTHOComment on above:ArrivedStart: 08-15-2024 End: 65-39-5894Ibjrjbi encounter nablojbkm22/22/2025 10:00 AM EDT Office Visit [facility] [address] [place] [address] Zen Rdz DO [address] [place] [address] [facility] NB ORTHOStart: 07-04-2024 End: 23-07-3067Hkmdjph encounter carqbvkpc65/10/2025 10:15 AM EDT Office Visit [facility] [address] [place] [address] Zen Rdz, DO [address] [place] [address] [facility] NB ORTHOStart: 06-14-2024 End: 46-95-7243Ramlxsm encounter msmiqpnax43/21/2025 9:45 AM EDT Office Visit [facility] [address] [place] [phone] Rose Dick, DO [address] [place] [address] [facility] SWS FM 230Start: 06-04-2024 End: 13-33-9122Kpgitic encounter rrevcovaa28/11/2025 11:15 AM EDT Office Visit [facility] [address] [place] [address] Zen Rdz, DO [address] [place] [address] [facility] NB ORTHOStart: 05-16-2024 End: 61-10-7131Zyiwccc encounter procedureNOMS NB ORTHOComment on above:Arrived Start: 03-18-2024 End: 82-60-8544Dqpkfcs encounter mtzwqamrp79/23/2024 10:30 AM EST Office Visit [facility] [address] [place] [address] Rose Dick, DO [address] [place] [address] [facility] S[facility] FM 230Start: 06-45-9003Ymszeyqra for malignant neoplasm of colonNOMS HealthcareStart: 12-19-2023 End: 33-44-2423Nezlzzv encounter htalzvtpj19/24/2024 8:00 AM EDT Office Visit [facility] [address] [address] Zen Rdz DO [address] [place] [address] [facility] NB ORTHOStart: 75-87-9248Btqyuepko vaccinationInfluenza Vaccine (#1)NOMS HealthcareStart: 01-71-2791Ysypterqf complement [address] [facility] Hospitaltart: 53-45-9211OwgzsyqjeSt. John of God Hospitaltart: 32-68-6301Xpjxwut referralLouis Stokes [facility] Work Phone: Start: 35-64-0868Ietvwkgnwnan Vaccine: 50+ (1 of 1 - PCV)Pneumococcal Vaccine: 50+ (1 of 1 - PCV)[facility]: 05-26-2019 Shingrix Vaccine (1 of 2)Shingrix Vaccine (1 of 2)[facility]: 43-38-9729Gdfptivf ScreeningDiabetes ScreeningMercy Health Willard Hospitaltart: 2014 Prostate specific antigen measurementProstate Cancer Screening Discussion [facility]: 15-79-4181Rkgscujuc for malignant neoplasm of colon [facility]: 02-11-5785Ndcqj panelLipid ScreeningCherrington Hospital Start: 04-13-7165Ggyxbnthl B Vaccine (1 of 3 - 19+ 3-dose series)Hepatitis B Vaccine (1 of 3 - 19+ 3-dose series)[facility]: 94-63-8836Safan microalbumin profileDTaP,Tdap,Td Vaccine (1 - Tdap)[facility]: 76-14-4048Gigidoz ScreeningAnxiety ScreeningMercy Health Willard Hospitaltart: 05-26-1987 Depression ScreeningDepression ScreeningMercy Health Willard Hospitaltart: 05-26-1987 Hepatitis C screeningHepatitis C ScreeningMercy Health Willard Hospitaltart: 57-64-6939IOO screeningHIV ScreeningCleTrumbull Regional Medical Centertart: 99-71-9476Psgjdwinp for malignant neoplasm of colonNOMS HealthcareBacteria identified in Body fluid by Culture BACTERIAL CULTURE AND GRAM STAIN, STERILE BODY FLUID Microbiology Routine Left shoulder pain, unspecified chronicity S/P shoulder replacement, left Loose orthopedic implant, initial encounter Instability of left shoulder joint 10/28/2024 11:06 AM EDTCleveland ClinicMicroalbumin [Mass/volume] in Urine [facility] HospitalPatient referralLouis Stokes [facility] Work Phone: SYNOVIAL FLUID MANUAL DIFFSYNOVIAL FLUID MANUAL DIFF Lab Routine Left shoulder pain, unspecified chronicity S/P shoulder replacement, left Loose orthopedic implant, initial encounter Instability of left shoulder joint 10/28/2024 11:06 AM EDTCleveland ClinicSYNOVIAL FLUID, CRYSTAL ID/PATHOLOGIST INTERPRETATIONSYNOVIAL FLUID, CRYSTAL ID/PATHOLOGIST INTERPRETATION Lab Routine Left shoulder pain, unspecified chronicity S/P shoulder replacement, left Loose orthopedic implant, initial encounter Instability of left shoulder joint 10/28/2024 11:06 AM EDTCBl[facility] End: 74-89-8973KA Shoulder - left 3 ViewsXR SHOULDER GENERAL 3V OR MORE AP/TRUE AP/OTHER LEFT Radiology Routine Left shoulder pain, unspecified chronicity 1 Occurrences starting 10/21/2024 until 11/21/2025[facility] Work Phone: Comment on above:1 Occurrences starting 10/21/2024 until 11/21/2025[facility] Immunizations Immunization DateImmunizationNotesCare GduzyxkgLqrlnyrs69-69-9118WMPDI-24 Vaccine Pfizer - Documentation Purposes OnlyBechristi Tucker Other [facility]10-21-2021COVID-19 Vaccine Pfizer - Documentation Purposes OnlyMax Tucker Other [facility] HospitalNEGATED: Highlighted row has not occurred!07-68-8029XTYI-CoV-2 (COVID-19) [id number] Giorgio Rdz General Surgery Eduar Payers DatePayer CategoryPayerPolicy [id number] Health [id number] Care HMO (unspecified)[id number] 2.16.840.1.323154.3.57[id number] 2.16.840.1.142503.3.579.2.10458-27-3978Acgdjvd74001624 2.16.840.1.595852.3.57[id number] 2.16.840.1.173410.3.57[id number] 2.16.840.1.210034.3.579.[id number] 2.0.1.559663.3.57[id number] 2.16.840.1.520313.3.57[id number] 2.16.840.1.330601.3.579.2.[id number] 2.16.840.1.840046.3.579.2.23060-64-1240Wjbpbzx36951314 2.16.840.1.962594.3.579.2.40968-15-7927Jwpmohl83812040 2.16840.1.739399.3.579.2.96485-63-7687Uwtdygy43903410 2.16.840.1.102660.3.579.2.999231-98-4148Fqecazc84112130 2.16840.1.391512.3.579.2.36[id number] 2.0.1.832477.3.579.2.468973-96-6401Doklosd54570017 2.0.1.931608.3.579.2.130769-08-4515Bncwtnm43924262 2.0.1.123103.3.579.2.556825-46-4125Lvqhqjr71535313 2..1.185816.3.579.[id number] 2..1.430817.3.579.2.794913-80-9510Qnbgigg18254455 2..1.421327.3.579.2.301958-12-2027Mnfmihk7393012 2..1.113368.3.579.2.244079-16-4751Glclwog8411729 2..1.225510.3.579.2.719053-48-0436Hudnusa8368123 2..1.235224.3.579.2.762912-41-0767Ulzdfdi8519093 2..1.931863.3.579.2.550304-66-1299Afybwib1573913 2..1.950397.3.579.2.608529-89-1486Ravjrji8409297 2..1.719815.3.579.2.934247-41-3951Ovdnfkk2416248 2..1.824637.3.579.2.689110-19-8066Rsbvonl Health [id number] Private Health [id number] [id number] 2.0.1.041087.3.579.2.531 Social History DateTypeDetailFacilityUnknown if ever smokedNort TakeCharge Other Start: 12-18-2023 End: 25-25-2294Nmg Assigned At [facility] Centertart: 61-10-8630Jzgploy smoking statusEx-smoker (finding)[facility] Start: 02-26-2012 End: 31-28-2260Wojxcpe smoking statusFormer smokeless tobacco user, quit more than 30 days agoKettering Health Behavioral Medical Centertart: 06-69-2538Bcg Assigned At [facility] Hospitaltart: 08-03-2020 End: 06-23-9334Qpdkoad smoking status NHISNever smoked tobaccoNOMS Healthcare Start: 99-00-3159Morkxuo use and exposureSmokeless tobacco non-userNOMS HealthcareStart: 12-19-2023 End: 99-53-3035Gbrxfeljs beverage intakeCurrent drinker of alcohol (finding)[facility] HealthcareStart: 12-18-2023 End: 74-43-3222Nzfzhqb of Social functionNOMS HealthcareHow often to you have a drink containing alcohol?Monthly or lessNOMS HealthcareHow many standard drinks containing alcohol do you have on a typical day?1 or 2NOMS HealthcareHow often do you have 6 or more drinks on 1 occasion?NeverNOMS HealthcareStart: 11-10-2022 Alcohol Commentcaffiene dailyNOMS HealthcareStart: 23-38-3168Vynoqj identity Identifies as male gender (finding)[facility]S HealthcareTobacco smoking status NHIS Unknown if ever smokedKettering Health [facility]ble Work Phone: Start: 04-09-2010 End: 13-95-9923GqsWjoa (finding)[facility] Hospitalexual OrientationWilson Health Start: 77-76-9487Mcdysiz use and exposureFormer smokeless tobacco userMercy Health Willard Hospitaltart: 32-77-0308Zpmplu orientation Heterosexual (finding)[facility] Medical Equipment Procedure CodeEquipment CodeEquipment Original TextEquipment IdentifierDates SHOULDER ARTHROSCOPY W/ POSSIBLE REPAIR Zen Rdz DO 04/07/23 Unknown Shoulder LFDAStart: 75-35-4977Yrobp Sugar Diagnostic (Onetouch Ultra Test) strip Start: 32-85-4102Qufdbdq (Onetouch Ultrasoft 2 Lancet) 30 gauge miscStart: 89-14-2261Rwxbb Sugar Diagnostic (Onetouch Ultra Test) stripStart: 07-20-2023 Lancets (Onetouch Ultrasoft 2 Lancet) 30 gauge miscStart: 79-34-9877ASPPSBRS ARTHROSCOPY W/ POSSIBLE REPAIR Zen Rdz DO 04/07/23 Unknown Shoulder LFDA Start: 86-33-1158HMOCRDCX ARTHROSCOPY W/ POSSIBLE REPAIR Zen Rdz DO 04/07/23 Unknown Shoulder LFDAStart: 45-60-4318UCUMSZUE TOTAL ARTHROPLASTY Zen Rdz DO 05/22/24 Non Biological Shoulder L{01}[id number] FDAStart: 71-68-7092Brfrq Sugar Diagnostic (Freestyle Lite Strips) stripStart: 07-18-2024 Blood Sugar Diagnostic (Onetouch Ultra Test) stripStart: 26-28-5624Gglaxxo (Onetouch Ultrasoft 2 Lancet) 30 gauge miscStart: 97-70-3288Ujwgn: 05-28-2019 SHOULDER ARTHROSCOPY W/ POSSIBLE REPAIR Zen Rdz DO 04/07/23 Unknown Shoulder LFDAStart: 53-70-5424Yzbbn Sugar Diagnostic (Freestyle Lite Strips) stripStart: 83-26-9443Bbwin Sugar Diagnostic (Onetouch Ultra Test) stripStart: 03-56-8869Qpaltpf (Onetouch Ultrasoft 2 Lancet) 30 gauge miscStart: 07-20-2023 Blood Sugar Diagnostic (Freestyle Lite Strips) stripStart: 80-75-6442Egiee Sugar Diagnostic (Onetouch Ultra Test) stripStart: 57-97-1374Tguwpqo (Onetouch Ultrasoft 2 Lancet) 30 gauge miscStart: 07-20-2023 Functional Status ApksCsqmctgjfxFhddfsMqjzityg70-03-0948Atosfmqqdv [facility]12-28-2023Functional [facility] Clinical Notes 06-21-2022 to 01-13-2025 Note Date & UbwrFrswPbwbvdnq39-85-8245 History of Present illness Narrative* Zen Rdz, DO - 01/13/2025 9:15 AM EDT Images from the original note were not included. @SHAZIA@ Chava Vasquez is a 54 y.o. male who [...] erythema. Full flexion, extension, pronation, supination. 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 Tender over the first dorsal compartment [...] has had continued followed up with Dr. Kraus regarding his left shoulder. I reviewed the last progress note from 11/18/2024 in which a conversion from anatomic to a reverse total shoulder arthroplasty was recommended. I recommended that he continue under the care of Dr. Kraus for his shoulder. Follow up prn. A [...] - XR wrist 3+ views left Zen Rdz D.O. Attestation This note was created using voice recognition through [employer] artificial intelligence. [1] No Known Allergies [2] Past Surgical History: Procedure Laterality Date ANTERIOR CERVICAL DISCECTOMY W/ FUSION ANTERIOR CRUCIATE LIGAMENT REPAIR Left APPENDECTOMY CHOLECYSTECTOMY HERNIA REPAIR KNEE SURGERY Left x3 NECK SURGERY ACD/ACF SHOULDER ARTHROSCOPY Left 04/07/2023 SUNIL TOTAL SHOULDER ARTHROPLASTY Left 05/22/2024 w/JAChristian [3] Family History Problem Relation Name Age of Onset Stroke Mother Ivana Vasquez Diabetes Mother Ivana Vasquez Cancer Mother Ivana Vasquez Heart disease Mother Ivana Vasquez Hypertension Mother Ivana Vasquez Mental illness Mother Ivana Vasquez Anxiety disorder Mother Ivana Vasquez Depression Mother Ivana Vasquez Migraines Mother Ivana Vasquez Restless legs syndrome Mother Ivana Vasquez Heart disease Father Chava Vasquez Diabetes Father Chava Vasquez Cancer Father Chava Vasquez Stroke Father Chava Vasquez Hypertension Father Chava Vasquez No Known Problems Maternal Grandmother No Known Problems Maternal Grandfather No Known Problems Paternal Grandmother No Known Problems Paternal Grandfather [4] Social History Tobacco Use Smoking status: Never Smokeless tobacco: Never Vaping Use Vaping status: Never Used Substance Use Topics Alcohol use: Yes Comment: caffiene daily Drug use: Never documented in this encounterWashington County Memorial HospitalQeohyqbpsw09-14-6436 NoteHNO ID: [id number] Author: BRIELLE KRAUS MD Service: ? Author Type: Physician Type: Progress Notes Filed: 11/18/2024 12:19 Note Text: [facility] CL[facility] NOTE Department of Orthopaedics Brielle Kraus MD [facility] NAME: Chava Vasquez JR CLINIC NO.: [id number] DATE: 11/18/2024 Interval Hx:Chava Vasquez JR is back to review the results of his left shoulder CT arthrogram and blood work. His inflammatory markers are low and his CT arthrogram shows evidence of glenoid component loosening with no rotator cuff tear. He is here to discuss the next step. PHYSICAL EXAMINATION: Incision appears well-healed. Forward elevation is passively to 150? and actively to 140?. External rotation is passively to 40? and actively to 30?. Internal rotation is to mid lumbar area. his strength is 4 out of 5 in internal rotation , 4 out of 5 in external rotation and 4 out of 5 in abduction in the plane of scapula. Belly press test is mildly positive. Positive Martin's test and positive Neer and Guy test. Upper extremity has intact sensory and motor function and has good perfusion distally. RADIOGRAPHIC STUDIES: CT arthrogram shows no evidence of extravasation of the dye out of the shoulder. There is clear loosening of the glenoid component with dye extravasating underneath the glenoid component and at least making it into the peripheral pegs. Implant is posteriorly lifted and there is gap formation anteriorly in front of the glenoid component. ASSESSMENT: Encounter Diagnosis ICD-10-CM 1. 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 S/P shoulder replacement, left Z96.612 PLAN: I told Chava Vasquez JR that his workup did not show any evidence of periprosthetic joint infection but given his age and male sex, I would not be surprised and there might be an occult infection in his right shoulder despite negative workup. He has a grossly loose glenoid component with some weakness in his subscap tendon on exam. My recommendation at this point would be a single-stage revision to a reverse total shoulder arthroplasty. Thankfully he has a platform humeral component that can be converted to a reverse total shoulder arthroplasty and he needs reconstruction on the glenoid side. His bone loss on the glenoid size is minimal at this point. Patient states that he needs to discuss this surgery with his primary care physician. I explained that delay in his revision surgery might lead to bone loss on the glenoid side and I do not recommend delaying revision surgery more than few months. He understands his problem and our recommendation and is going to reach out to my office when he will be ready to proceed with surgery.. If any questions or concerns arise, He should not hesitate to call. Brielle Kraus M.D. M.M.Sc. Shoulder and Elbow Surgeon Orthopaedic Surgery Department [place], [place] [address] Tell: [phone] Appt:[phone] Clinic [facility]08-[facility] History of Present illness Narrative* Brielle Kraus MD - 11/18/2024 10:39 AM EDT [facility] NOTE Department of Orthopaedics Brielle Kraus MD [facility] NAME: Chava Vasquez JR CLINIC NO.: [id number] DATE: 11/18/2024 Interval Hx:Chava Vasquez JR is back to review the results of his left shoulder CT arthrogram andblood work. His inflammatory markers are low and his CT arthrogram shows evidence of glenoid component loosening with no rotator cuff tear. He is here to discuss the next step. PHYSICAL EXAMINATION: Incision appears well-healed. Forward elevation is passively to 150 and actively to 140 . External rotation is passively to 40 and actively to 30 . Internal rotation is to mid lumbar area. his strength is 4 out of 5 in internal rotation , 4 out of 5 in external rotation and 4 out of 5 in abduction in the plane of scapula. Belly press test is mildly positive. Positive Martin's test and positive Neer and Guy test. Upper extremity has intact sensory and motor function and has good perfusion distally. RADIOGRAPHIC STUDIES: CT arthrogram shows no evidence of extravasation of the dye out of the shoulder. There is clear loosening of the glenoid component with dye extravasating underneath the glenoid component and at least making it into the peripheral pegs. Implant is posteriorly lifted and there is gap formation anteriorly in front of the glenoid component. ASSESSMENT: Encounter Diagnosis ICD-10-CM 1. 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 S/P shoulder replacement, left Z96.612 PLAN: I told Chava Vasquez JR that his workup did not show any evidence of periprosthetic joint infection but given his age and male sex, I would not be surprised and there might be an occult infection in his right shoulder despite negative workup. He has a grossly loose glenoid component with some weakness in his subscap tendon on exam. My recommendation at this point would be a single- stage revision to a reverse total shoulder arthroplasty. Thankfully he has a platform humeral component that can be converted to a reverse total shoulder arthroplasty and he needs reconstruction on the glenoid side. His bone loss on the glenoid size is minimal at this point. Patient states that he needs to discuss this surgery with his primary care physician. I explained that delay in his revision surgery might lead to bone loss on the glenoid side and I do not recommend delaying revision surgery more than few months. He understands his problem and our recommendation and is going to reach out to my office when he will be ready to proceed with surgery.. If any questions or concerns arise, He should not hesitate to call. Brielle Kraus M.D. M.M.Sc. Shoulder and Elbow Surgeon Orthopaedic Surgery Department [place], [place] [address] Tell: [phone] Appt:[phone] documented in this encounterCherrington Hospital08-11-2025 History of Present illness Narrative* Zen Rdz, - 11/04/2024 10:30 AM EDT Images from the original note were not included. @ENCDATE@ Chava Vasquez is a 54 y.o. male who presents for Follow-up of the Left Shoulder HPI: History of Present Illness The patient is a 54-year-old male who presents today for follow-up on his left shoulder. He has a history of an anatomic shoulder replacement on 05/22/2024. He had a consultation with Dr[facility] Kra[facility] at [facility] on 07/[facility]/20[facility], and this was reviewed in [facility]. The shoulder was aspirated and sent for Synovasure analysis. Results are pending. He reports experiencing pain in his left shoulder and has been wearing a brace daily, which provides some support but does not seem to improve his range of motion. He expresses concern about the possibility of needing another surgery and the potential presence of an infection. He is curious about how long he can manage without surgery and what steps should be taken if an infection is present. He is scheduled for a follow-up visit with Dr. Kraus in 2 weeks. WBC, CRP, ESR performed 10/28/2024 WNL. Aspirate demonstrated 817 TNCs, 87% neutrophils. He is diabetic, and his blood sugar levels have been well-controlled, typically in the 120s, but have recently increased to around 190 or 200. This change occurred after discontinuing Journavx approximately 2 weeks ago. He notes that his blood sugar levels were better when he was taking Journavx, experiencing no pain and being able to sleep at night. He recalls that he did not take the loading dose of Journavx during his last course of treatment, instead starting with a single dose. SUBJECTIVE: MEDICATIONS: Current Outpatient Medications Medication Instructions [...] etodolac (LODINE) 500 mg, 2 times daily FREESTYLE LITE test strip USE DIRECTED glimepiride (Amaryl) 1 MG tablet TAKE 1 TABLET BY MOUTH EVERY MORNING WITH BREAKFAST ibuprofen 600 mg, Daily PRN Janumet 50-1000 MG tablet 1 tablet, 2 times daily with meals Jardiance 10 mg, Oral, Daily Journavx 50 mg, Oral, Every 12 hours, For the first dose, take 2 tablets (100 mg) on an empty stomach at least 1 hour before or 2 hours after food. Starting 12 hours after the initial dose, take 1 tablet (50 mg) every 12 hours with or without food. omeprazole (PriLOSEC) [address] capsule triamcinolone (Kenalog) 0.1 % ointment ALLERGIES: No Known Allergies SURGICAL HISTORY: Past Surgical History: Procedure Laterality Date ANTERIOR CERVICAL DISCECTOMY W/ FUSION ANTERIOR CRUCIATE LIGAMENT REPAIR Left APPENDECTOMY CHOLECYSTECTOMY HERNIA REPAIR KNEE SURGERY Left x3 NECK SURGERY ACD/ACF SHOULDER ARTHROSCOPY Left 04/07/2023 JAB TOTAL SHOULDER ARTHROPLASTY Left 05/22/2024 w/JAB FAMILY HISTORY: Family History Problem Relation Name Age of Onset Stroke Mother Ivana Vasquez Diabetes Mother Ivana Vasquez Cancer Mother Ivana Vasquez Heart disease Mother Ivana Vaqsuez Hypertension Mother Ivana Vasquez Mental illness Mother Ivana Vasquez Anxiety disorder Mother Ivana Vasquez Depression Mother Ivana Vasquez Migraines Mother Ivana Vasquez Restless legs syndrome Mother Ivana Vasquez Heart disease Father hCava Vasquez Diabetes Father Chava Vasquez Cancer Father Chava Vasquez Stroke Father Chava Vasquez Hypertension Father Chava Vasquez No Known Problems Maternal Grandmother No Known Problems Maternal Grandfather No Known Problems Paternal Grandmother No Known Problems Paternal Grandfather SOCIAL HISTORY: Social History Tobacco Use Smoking status: Never Smokeless tobacco: Never Vaping Use Vaping status: Never Used Substance Use Topics Alcohol use: Yes Comment: caffiene daily Drug use: Never Depression: Not at risk (03/18/2024) PHQ-2 PHQ-2 Score: 0 REVIEW OF SYMPTOMS: Review of Systems The review of systems, history and current medications list are all reviewed today. OBJECTIVE: Visit Vitals Ht 5' 9 Wt 186 lb BMI 27.47 kg/m Smoking Status Never BSA 2.03 m Physical Exam Alert and oriented, no acute distress. Mood and affect are appropriate. Does not appear toxic. is present. Left shoulder: wearing Monisha brace. Incision benign. Active forward elevation limited to 30 degrees, abduction limited to 30 degrees, good strength with external rotation. Weakness with belly press. Ortho Exam Results ASSESSMENT AND PLAN: I reviewed the history, physical exam, diagnostic studies, and diagnosis with the patient. Assessment & Plan 1. Left shoulder pain, history of anatomic TSA, aseptic vs septic loosening The socket component of the shoulder replacement appears to be loose, potentially due to inadequateintegration with the bone or an underlying infection. His function is severely compromised. Due to upcoming travel to [place] this weekend, Journavx has been prescribed again per patient's request,along with a voucher for potential cost issues. Adherence to the prescribed loading dose regimen over a period of 14 days is advised. The final results of the fluid analysis are pending and may take up to two weeks. If there is any concern for underlying infection, then I suggested continued care with Dr. Kraus due to availability of resources at a tertiary center. He was advised to keep the follow-up appointment in two weeks to review the results and determine the next steps. Diagnoses and all orders for this visit: Status post total shoulder replacement, left - Suzetrigine (Journavx) 50 MG tablet; Take 50 mg by mouth every 12 (twelve) hours for 14 days For the first dose, take 2 tablets (100 mg) on an empty stomach at least 1 hour before or 2 hours after food. Starting 12 hours after the initial dose, take 1 tablet (50 mg) every 12 hours with or withoutfood. Zen Rdz D.O. Attestation This note was created using voice recognition through [employer]. documented in this encounterWashington County Memorial [id number] NoteHNO ID: [id number] Author: BRIELLE KRAUS MD Service: ? Author Type: Physician Type: Progress Notes Filed: 10/28/2024 13:20 Note Text: Brielle Kraus M.D. M.M.Sc. Senior Recruitment Consultant of Orthopaedic Surgery at [place] [address] Office: [phone] Consult requested for an opinion regarding the evaluation and treatment of the above patient. My final impression and recommendations will be communicated back to the requesting physician by way of the shared medical record or letter via US mail. Patient info: Chava Vasquez JR ([id number]) Service date: 10/28/2024 Referred by: Zen Rdz DO [address] [facility] [address] PCP: DO Garrett Chief Complaint: Left shoulder pain. HPI:Chava Vasquez JR is a 54 year old Left hand dominant male who presents with left shoulder pain S/p TSA with Dr. Kajal DO. His complaints include subjective instability since surgery and difficulty with active forward flexion and internal and external rotation. No infection symptoms such as erythema, fevers. Negative ESR/CRP by Dr. Rdz. He fell after surgery while walking down stairs, but nothing visible on XR after the fall. He has a hx of DM II, glucose controlled with medications. Chava reports a current pain level of 5 (Shoulder-Left). He describes the pain as Sharp. The pain is Continuous . Interventions tried include Medication (wears a brace). Most recent shoulder imaging was completed on 09/13/2024 (XR SHOULDER LIMITED 2V AP/TRUE AP LEFT) . PAIN EVALUATION 10/28/2024 0930 Pain Level: 5 Pain Location: Shoulder-Left Description: Sharp Duration Amount of Time: -- april 2024 Frequency: Continuous Intervention/Comfort measure: Medication wears a brace Other pertinent Hx: Employer And Job Title: None on file Years Of Education Completed: Not specified Marital Status: BWC: no Physical Therapy: Yes has been going Corticosteroid Injections: No History of Smoking: No History of frequent fall: no How many falls in the past 1 year: 1 fall walking down stairs Prior treatments: Modified Activity REVIEW OF SYMPTOMS: Constitutional: Any recent fevers? Negative Cardiovascular: Any chest pain? Negative Respiratory: Any shortness or breath? Negative Gastrointestinal: Any abdominal discomfort? Negative Integumentary: Any recent skin changes or rashes? Negative Neurologic: Any numbness or tingling? Negative Endocrine: Any diagnosis of diabetes? Negative Hematologic: Any recent bleeding episodes? Negative No family history on file. No past medical history on file. No past surgical history on file. ALLERGIES No Known Allergies Problem List: reviewed and updated. Social History: Social History Tobacco Use Smoking status: Never Smokeless tobacco: Former Current Outpatient Medications Medication Sig ALPRAZolam (XANAX) 0.25 mg tablet Take 0.25 mg by mouth. atorvastatin (LIPITOR) 80 mg tablet blood sugar diagnostic (ONETOUCH ULTRA TEST STRIP) test strip FREESTYLE LITE METER monitoring kit USE TO TEST HOME BLOOD SUGAR ONCE EVERY DAY FREESTYLE LITE STRIPS test strip TEST WITH 1 STRIP DAILY NEEDED citalopram (CELEXA) 20 mg tablet glimepiride (AMARYL) 2 mg tablet FREESTYLE LANCETS 28 gauge USE TO TEST HOME BLOOD SUGAR ONCE DAILY metFORMIN (GLUCOPHAGE) 1,000 mg tablet omeprazole (PRILOSEC) 40 mg capsule TAKE 1 CAPSULE ON EMPTY STOMACH FOLLOWED IN 30 MINUTES BY BREAKFAST sildenafil (VIAGRA) 100 mg tablet Take 100 mg by mouth. SITagliptin-metFORMIN (JANUMET) 50-1,000 mg per tablet Take by mouth. No current facility-administered medications for this visit. General Physical Exam: There were no vitals taken for this visit. No weight on file for this encounter. Constitutional: Pleasant, well-appearing, no acute distress. Resp: breathing is unlabored without audible wheeze Vascular: Normal pedal and radial pulses, no cyanosis, no venous stasis changes Skin: No overlying skin change, ecchymosis, or erythema. Psychiatric: Pleasant, direct, appropriate mood and affect Focused Musculoskeletal/Neurologic exam: Left Shoulder Atrophy/asymmetry No Scapular dyskinesia No AC tenderness No ROM (Passive/Active): FE (degree) 45/80 ER (degree) 30/30 ER Lag (degree) 20 IR (degree) Sacrum Strength (1-5) ABD in plane of scapula 3/5 ER 3/5 IR 3/5 Provocative tests: Job?s test Positive Neer and Guy test Deferred Belly press test Positive O?Jose?s test Speed's test Hornblower's sign Negative Cross Body Adduction Apprehension Sulcus Load and Shift Nerve deficit (motor/sensory) Radial n. Negative Median n. Negative Ulnar n. Negative Axillary n. Negative Vascular Distal perfusion normal Contra-lateral shoulder: within normal limits Imaging Studies: All relevant imaging studies have been reviewed and interpreted by myself and discussed (more content not included)...[facility]08-04-[facility]25 History of Present illness Narrative* Brielle Kraus MD - 10/28/2024 9:36 AM EDTAssociated Order(s): Large Joint Arthro/Inj: L shoulder joint Post-Procedure Diagnose(s): Left shoulder pain, unspecified chronicity; S/P shoulder replacement, left; Loose orthopedic implant, initial encounter; Instability of left shoulder joint Images from the original note were not included. Brielle Kraus M.D. M.M.Sc. Senior Recruitment Consultant of Orthopaedic Surgery at [place] [address] Office: [phone] Consult requested for an opinion regarding the evaluation and treatment of the above patient. My final impression and recommendations will be communicated back to the requesting physician by way of the shared medical record or letter via US mail. Patient info: Chava Vasquez JR ([id number]) Service date: 10/28/2024 Referred by: Zen Rdz DO [address] [facility] [address] PCP: DO Garrett Chief Complaint: Left shoulder pain. HPI:Chava Vasquez JR is a 54 year old Left hand dominant male who presents with left shoulder pain S/p TSA with Dr. Kajal DO. His complaints include subjective instability since surgery and difficulty with active forward flexion and internal and external rotation. No infection symptoms such as erythema, fevers. Negative ESR/CRP by Dr. Rdz. He fell after surgery while walking down stairs, butnothing visible on XR after the fall. He has a hx of DM II, glucose controlled with medications. Chava reports a current pain level of 5 (Shoulder-Left). He describes the pain as Sharp. The pain is Continuous . Interventions tried include Medication (wears a brace). Most recent shoulder imagingwas completed on 09/13/2024 (XR SHOULDER LIMITED 2V AP/TRUE AP LEFT) . PAIN EVALUATION 10/28/2024 0930 Pain Level: 5 Pain Location: Shoulder-Left Description: Sharp Duration Amount of Time: -- april 2024 Frequency: Continuous Intervention/Comfort measure: Medication wears a brace Other pertinent Hx: Employer And Job Title: None on file Years Of Education Completed: Not specified Marital Status: BWC: no Physical Therapy: Yes has been going Corticosteroid Injections: No History of Smoking: No History of frequent fall: no How many falls in the past 1 year: 1 fall walking down stairs Prior treatments: Modified Activity REVIEW OF SYMPTOMS: Constitutional: Any recent fevers? Negative Cardiovascular: Any chest pain? Negative Respiratory: Any shortness or breath? Negative Gastrointestinal: Any abdominal discomfort? Negative Integumentary: Any recent skin changes or rashes? Negative Neurologic: Any numbness or tingling? Negative Endocrine: Any diagnosis of diabetes? Negative Hematologic: Any recent bleeding episodes? Negative No family history on file. No past medical history on file. No past surgical history on file. ALLERGIES No Known Allergies Problem List: reviewed and updated. Social History: Social History Tobacco Use Smoking status: Never Smokeless tobacco: Former Current Outpatient Medications Medication Sig ALPRAZolam (XANAX) 0.25 mg tablet Take 0.25 mg by mouth. atorvastatin (LIPITOR) 80 mg tablet blood sugar diagnostic (ONETOUCH ULTRA TEST STRIP) test strip FREESTYLE LITE METER monitoring kit USE TO TEST HOME BLOOD SUGAR ONCE EVERY DAY FREESTYLE LITE STRIPS test strip TEST WITH 1 STRIP DAILY NEEDED citalopram (CELEXA) 20 mg tablet glimepiride (AMARYL) 2 mg tablet FREESTYLE LANCETS 28 gauge USE TO TEST HOME BLOOD SUGAR ONCE DAILY metFORMIN (GLUCOPHAGE) 1,000 mg tablet omeprazole (PRILOSEC) 40 mg capsule TAKE 1 CAPSULE ON EMPTY STOMACH FOLLOWED IN 30 MINUTES BY BREAKFAST sildenafil (VIAGRA) 100 mg tablet Take 100 mg by mouth. SITagliptin-metFORMIN (JANUMET) 50-1,000 mg per tablet Take by mouth. No current facility-administered medications for this visit. General Physical Exam: There were no vitals taken for this visit. No weight on file for this encounter. Constitutional: Pleasant, well-appearing, no acute distress. Resp: breathing is unlabored without audible wheeze Vascular: Normal pedal and radial pulses, no cyanosis, no venous stasis changes Skin: No overlying skin change, ecchymosis, or erythema. Psychiatric: Pleasant, direct, appropriate mood and affect Focused Musculoskeletal/Neurologic exam: Left Shoulder Atrophy/asymmetry No Scapular dyskinesia No AC tenderness No ROM (Passive/Active): FE (degree) 45/80 ER (degree) 30/30 ER Lag (degree) 20 IR (degree) Sacrum Strength (1-5) ABD in plane of scapula 3/5 ER 3/5 IR 3/5 Provocative tests: Job s test Positive Neer and Guy test Deferred Belly press test Positive O Jose s test Speed's test Hornblower's sign Negative Cross Body Adduction Apprehension Sulcus Load and Shift Nerve deficit (motor/sensory) Radial n. Negative Median n. Negative Ulnar n. Negative Axillary n. Negative Vascular Distal perfusion normal Contra-lateral shoulder: within normal limits Imaging Studies: All relevant imaging studies have been reviewed and interpreted by myself and discussed with the patient. Radiographic studies: XR of the Left Shoulder was reviewed. 3 view x-rays show a Total shoulder arthroplasty with following details: Humeral osteolysis Negative Humeral loosening Negative Glenoid osteolysis Negative Glenoid Loosening Negative Periprosthetic fracture Negative Scapular fracture Negative Dislocation Negative Subluxation Negative Soft tissue swelling Negative Advanced imaging studies: CT arthogram images shows prior TSA with glenoid component displacement and contrast extravasation behind the implant in both the coronal and axillary planes. No periprosthetic fracture. No major glenoid bone loss. Humerus without loosening. No active dislocation or subluxation of the humerus on imaging. Risk profile: Obesity Unknown Risk High: BMI > 40 Moderate: BMI 30-40 Normal: BMI < 30 Diabetes normal High: A1C > 8 Moderate: A1C 7-8 Normal: A1C < 7 Smoking normal High: Current smoker Normal: Non smoker Anemia normal High: Hgb < 13 (men) N/A: Hgb >= 13 (men) Nutritional Status normal High: Alb<3.4, or prealb<15, or serum transferrin<200, or total lymphocyte count<1500 Normal: normal labs COPD normal High: dx of COPD Normal: no dx of COPD MRSA normal High: dx of MRSA or positive lab test Normal: no MRSA CKD normal High: eGFR<60 Moderate: eGFR 60-89 Normal: eGFR>90 Hx of DVT / PE normal High: dx of DVT / PE Normal: no dx of DVT / PE Narcotics Use Moderate Risk High:NarxCare >=300 Moderate: 100-299 Normal: 0-99 ZAHIRA normal High: dx of ZAHIRA N/A: no dx of ZAHIRA Coagulation normal High:PT Sec>13, or PT INR>1.3, or APTT>32.4, or Plt ct<150k Moderate: on anticoag but none of the above Normal: none Hypertension normal High: dx of Chronic Htn Normal: no dx of Chronic Htn CHF normal High: dx of CHF Normal: no dx of CHF Obesity: height and/or weight are out of date (There is no height and/or weight reading in the uawn175 days, so the below BMI readings may be inaccurate) BMI Readings from Last 3 Encounters: No data found for BMI NarxCare score NARX Narcotics: 280 (10/28/2024 9:32 AM) Hg A1C: No results found for: HBA1C Hg/Hct: No results found for: HCT Alcohol Hx: Alcohol Use: Not on file DMARDS: no DMARD medications Assessment: Encounter Diagnosis ICD-10-CM 1. Left shoulder pain, unspecified chronicity M25.512 XR SHOULDER GENERAL 3V OR MORE AP/TRUE AP/OTHER LEFT 2. S/P shoulder replacement, left Z96.612 3. Loose orthopedic implant, initial encounter T84.039A 4. 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 He is presenting after a failed anatomic total shoulder arthroplasty on the left side that was done about 5 months ago. He denies any evidence of prolonged wound drainage or issues with the healing of the incision postsurgery. He had an arthroscopic debridement about a year ago in the same shoulder that did not provide him any pain relief. Patient states that after that surgery he developed subjective sense of instability. After his total shoulder arthroplasty he has experienced locking episodes and anterior subluxation of the shoulder. His surgeon worked him up for infection with low i nflammatory markers. His shoulder was never aspirated. A CT arthrogram shows loosening of the glenoid component and possible tear of the subscap tendon. He is very painful and his exam is unreliable today. We discussed to aspirate the shoulder and send the fluid for culture and cell count. Under sterile condition we aspirated the left shoulder and got 2 cc of bloody fluid that was sent for culture and cell count. We did not have enough fluid for Synovasure. Like him to return to clinic in 3 weeks so we can discuss findings of the aspiration and plan accordingly.. All questions answered. If any more questions or concerns arise, they should not hesitate to call. Large Joint Arthro/Inj: L shoulder joint 10/28/2024 10:54 AM The procedure site was prepped in the usual sterile fashion. Site: L shoulder joint Aspirate: 2 mL bloody; sent for lab analysis Outcome: Tolerated well, no immediate complications Post-injection instructions were reviewed with the patient and the patient voiced understanding of these instructions. Informed Consent Consent Obtained: Verbal [place] Protocol A moment to CARE was completed. SIGN IN Sign in communication not applicable due to emergent procedure. Personnel directly involved with the procedure wore the appropriate PPE. Special Equipment: Yes Patient/Surrogate Stated/Verified: Date of , Patient name and Relevant allergies TIME OUT Relevant labs, photos, and/or imaging studies have been reviewed. Intended patient and procedure match source documents. Consent obtained and matches the intended procedure. Correct side/site marked and visible. Medications required for procedure verified. Fire risk assessed and interventions discussed. Implant(s) inserted. Correct implant(s) confirmed including size and side. SIGN OUT All specimens correctly labeled and sent. All instruments, equipment, possible retained foreign bodies accounted for. The post-procedure POC has been communicated to the patient or surrogate. Post-procedure POC communicated to patient's multidisciplinary team (including bedside nurse for hospitalized patients). Brielle Kraus M.D. MMacyMMacySc. Shoulder and Elbow Surgeon Orthopaedic Surgery Department [place], [place] [address] Tell: [phone] Appt:[phone] 10/28/2024 9:42 AM CC:Zen Rdz documented [facility] Evaluation note* Diagnosis Onset Date Resolution Status Admit Date Anemia acuteJuly 2024 9:47amGAD (generalized anxiety disorder)acuteJuly 2024 9:47amGERD (gastroesophageal reflux disease)acuteJuly 2024 9:47amLeft wrist painacuteJuly 2024 9:47amMajor depressionacuteJuly 2024 9:47amType 2 diabetes mellitus with diabetic polyneuropathyacuteJuly 2024 9:47amType 2 diabetes mellitus with hyperglycemiaacuteJuly 2024 9:47amAnemiaacuteOctober 2024 9:47amGAD (generalized anxiety disorder)acuteOctober 2024 9:47am GERD (gastroesophageal reflux disease)acuteOctober 2024 9:47amLeft wrist painacuteOctober 2024 9:47amMajor depressionacuteOctober 2024 9:47am Type 2 diabetes mellitus with diabetic polyneuropathyacuteOctober 2024 9:47amType 2 diabetes mellitus with hyperglycemiaacuteOctober 2024 9:47am [facility] Work Phone: 1(869) 266-530207-03-2025 History of Present illness Narrative* Zen Rdz, - 09/26/2024 3:45 PM EDT Images from the original note were not included. @ENCDATE@ Chava Vasquez is a 54 y.o. male who presents for Follow-up of the Left Shoulder HPI: History of Present Illness The patient is a 54-year-old male who is 4 months status post left total shoulder arthroplasty performed on 05/22/2024. He is accompanied by his . He reports an improvement in his condition, with pain levels decreasing. However, he notes that hismobility remains limited. Labs completed 09/24/2024 showed normal ESR, CRP, IL-6. SUBJECTIVE: MEDICATIONS: Current Outpatient Medications Medication Instructions [...] etodolac (LODINE) 500 mg, 2 times daily FREESTYLE LITE test strip USE DIRECTED glimepiride (Amaryl) 1 MG tablet TAKE 1 TABLET BY MOUTH EVERY MORNING WITH BREAKFAST ibuprofen 600 mg, Daily PRN Janumet 50-1000 MG tablet 1 tablet, 2 times daily with meals Jardiance 10 mg, Oral, Daily Journavx 50 mg, Oral, Every 12 hours, For the first dose, take 2 tablets (100 mg) on an empty stomach at least 1 hour before or 2 hours after food. Starting 12 hours after the initial dose, take 1 tablet (50 mg) every 12 hours with or without food. omeprazole (PriLOSEC) [address] capsule triamcinolone (Kenalog) 0.1 % ointment ALLERGIES: No Known Allergies SURGICAL HISTORY: Past Surgical History: Procedure Laterality Date ANTERIOR CERVICAL DISCECTOMY W/ FUSION ANTERIOR CRUCIATE LIGAMENT REPAIR Left APPENDECTOMY CHOLECYSTECTOMY HERNIA REPAIR KNEE SURGERY Left x3 NECK SURGERY ACD/ACF SHOULDER ARTHROSCOPY Left 04/07/2023 JAB TOTAL SHOULDER ARTHROPLASTY Left 05/22/2024 w/JAB FAMILY HISTORY: Family History Problem Relation Name Age of Onset Stroke Mother Ivana Vasquez Diabetes Mother Ivana Vasquez Cancer Mother Ivana Vasquez Heart disease Mother Ivana Vasquez Hypertension Mother Ivana Vasquez Mental illness Mother Ivana Vasquez Anxiety disorder Mother Ivana Vasquez Depression Mother Ivana Vasquez Migraines Mother Ivana Vasquez Restless legs syndrome Mother Ivana Vasquez Heart disease Father Chava Vasquez Diabetes Father Chava Vasquez Cancer Father Chava Vasquez Stroke Father Chava Vasquez Hypertension Father Chava Vasquez No Known Problems Maternal Grandmother No Known Problems Maternal Grandfather No Known Problems Paternal Grandmother No Known Problems Paternal Grandfather SOCIAL HISTORY: Social History Tobacco Use Smoking status: Never Smokeless tobacco: Never Vaping Use Vaping status: Never Used Substance Use Topics Alcohol use: Yes Comment: caffiene daily Drug use: Never Depression: Not at risk (03/18/2024) PHQ-2 PHQ-2 Score: 0 REVIEW OF SYMPTOMS: Review of Systems The review of systems, history and current medications list are all reviewed today. OBJECTIVE: Visit Vitals Ht 5' 9 Wt 186 lb BMI 27.47 kg/m Smoking Status Never BSA 2.03 m Physical Exam Alert and oriented, no acute distress. Mood and affect are appropriate. Ambulating independently. Gait is nonantalgic. Left Shoulder: Active forward flexion is very limited to about 30 degrees. Abduction is limited to 10 to 20 degrees. Internal rotation reaches to the pocket. Good strength with external rotation and decent strength with belly press. Incision well healed. No erythema Right Shoulder: Internal rotation reaches T8. Ortho Exam Results Imaging CT arthrogram left shoulder 09/24/2024 reviewed. No dye extrusion into subacromial or subcoracoid space. Dye present behind glenoid component with incomplete seating anteriorly. ASSESSMENT AND PLAN: I reviewed the history, physical exam, diagnostic studies, and diagnosis with the patient. Assessment & Plan 1. Post-operative status following left total shoulder arthroplasty. Concern for glenoid loosening. The deltoid appears to be functioning well. The implant may have loosened slightly, causing micromotion during movement and potentially resulting in pain. Another prescription for Journavx will be sent to the pharmacy. A shoulder [place] brace will be provided for temporary use to alleviate discomfort during the day. The brace may help keep the shoulder in a more comfortable position by applying pressure. If the brace does not seem beneficial, it can be discontinued. A referral to a shoulder specialist will be made for a second opinion regarding the shoulder condition. If the implant is confirmed to be loose, conversion to a reverse shoulder replacement may be considered. Follow up after consultation with Dr. Kraus. Antibiotics prescribed for upcoming dental appointment. A total of 30 to 39 minutes was spent on this patient encounter which included chart review, check in, nurse triage, history taking, physical examination, diagnostic study review, patient counseling and discussion, entering information into the patient's medical record, and coordinating patient care. Diagnoses and all orders for this visit: Status post total shoulder replacement, left - Suzetrigine (Journavx) 50 MG tablet; Take 50 mg by mouth every 12 (twelve) hours for 14 days For the first dose, take 2 tablets (100 mg) on an empty stomach at least 1 hour before or 2 hours after food. Starting 12 hours after the initial dose, take 1 tablet (50 mg) every 12 hours with or withoutfood. - cephalexin (Keflex) 500 MG capsule; Take 4 capsules (2,000 mg) by mouth 1 time for 1 dose Take 30-60 mins before dental appointment with abel Rdz D.O. Attestation This note was created using voice recognition through [employer]. documented in this encounterWashington County Memorial [id number] History of Present illness Narrative* SHAJI Polanco - 09/13/2024 11:30 AM EDT Images from the original note were not included. Subjective Patient ID: Chava Vasquez is a 54 y.o. male. Chief Complaint: Pain of the Left Shoulder (Hx TSA 05/22/24 [facility]) Last Surgery: No surgery found Last Surgery Date: No surgery found HPI Chava comes in to the office he walks in and request to be seen for an x-ray otherwise he was going to go to the emergency department. He states he was taking the trash out and simply lifted the lidwith his left arm causing severe pain in the anterior shoulder. He has been struggling before this but never this severe pain. He wants to assure that the pop he felt was not related to a fracture orhardware failure. He is actually being scheduled to have a CT scan with contrast and follow up withDr. Zen Rdz. Objective Ortho Exam Patient has a lot of pain with even passive range of motion seems to be most anterior deltoid incision is healed well with no erythema or drainage. No excessive warmth or fever of the joint deltoid does have some spasm in it. Elbow neurovascularly intact with good function. Does have some tenderness into the biceps with no noted ecchymosis. Image Results: XR shoulder 2+ views left Imaging Result: AP Grashey and scapular Y-view of the left shoulder taken in the office today does not demonstrate any obvious fracture or displacement of the total shoulder prosthesis essentially unchanged from previous imaging done recently with Dr. Zen Rdz Assessment/Plan Encounter Diagnoses: Left shoulder pain, unspecified chronicity Status post total shoulder replacement, left Acute postoperative pain of left shoulder Orders Placed This Encounter XR shoulder 2+ views left Follow up in about 4 weeks (around 10/11/2024) for CT results with Dr. Zen Rdz. Cold pack to the anterior left shoulder through your clothing for 20 minutes several times a day and before bedtime. We will try you back on the Journavx which seemed to really help after surgery dueTo the severity of the pain. May take either ibuprofen, Celebrex, or Lodine but not all of them as they are all NSAIDs and can cause GI upset increasing the chance for gastric ulcer and anemia as wellas difficult on the kidneys. Would avoid splinting the arm and try to use it gently maintaining some mobility and progress as the pain becomes more tolerable. We will follow up in a few weeks after he have your CT scan ordered by Dr. Zen Rdz. documented in this encounterWashington County Memorial [id number] Instructions* Patient Instructions* SHAJI Polanco - 09/13/2024 11:30 AM EDT Cold pack to the anterior left shoulder through your clothing for 20 minutes several times a day and before bedtime. We will try you back on the Journavx which seemed to really help after surgery dueTo the severity of the pain. May take either ibuprofen, Celebrex, or Lodine but not all of them as they are all NSAIDs and can cause GI upset increasing the chance for gastric ulcer and anemia as wellas difficult on the kidneys. Would avoid splinting the arm and try to use it gently maintaining some mobility and progress as the pain becomes more tolerable. We will follow up in a few weeks after he have your CT scan ordered by Dr. Zen Rdz. documented in this encounterWashington County Memorial [id number] History of Present illness Narrative* Zen Rdz, - 09/05/2024 9:30 AM EDT Images from the original note were not included. @SHAZIA@ Chava Vasquez is a 54 y.o. male who presents for Follow-up of the Left Shoulder HPI: History of Present Illness The patient is 3.5 months status post left anatomic total shoulder arthroplasty, which was performed on 05/22/2024. He reports persistent discomfort in his left shoulder, describing it as a sensation of the joint dislocating. He expresses concern about the possibility of a rotator cuff tear. He also mentions a previous adverse reaction to a surgical procedure, which has left him apprehensive about undergoing another surgery. SUBJECTIVE: MEDICATIONS: Current Outpatient Medications Medication Instructions acetaminophen (TYLENOL) 1,000 mg, 2 times daily ALPRAZolam (XANAX) 0.25 mg, Every 8 hours PRN atorvastatin (LIPITOR) 80 mg, Nightly buPROPion SR (Wellbutrin SR) 150 MG 12 hr tablet TAKE 1 TABLET BY MOUTH ONCE EVERY MORNING CeleBREX 200 mg citalopram (CELEXA) 40 mg, Daily [facility] Stool Softener 100 MG capsule empagliflozin (JARDIANCE) 10 mg, Oral, Daily etodolac (LODINE) 500 mg, 2 times daily FREESTYLE LITE test strip USE DIRECTED glimepiride (Amaryl) 1 MG tablet TAKE 1 TABLET BY MOUTH EVERY MORNING WITH BREAKFAST ibuprofen 600 mg, Daily PRN Janumet 50-1000 MG tablet 1 tablet, 2 times daily with meals omeprazole (PriLOSEC) [address] capsule triamcinolone (Kenalog) 0.1 % ointment ALLERGIES: No Known Allergies SURGICAL HISTORY: Past Surgical History: Procedure Laterality Date ANTERIOR CERVICAL DISCECTOMY W/ FUSION ANTERIOR CRUCIATE LIGAMENT REPAIR Left APPENDECTOMY CHOLECYSTECTOMY HERNIA REPAIR KNEE SURGERY Left x3 NECK SURGERY ACD/ACF SHOULDER ARTHROSCOPY Left 04/07/2023 JAB TOTAL SHOULDER ARTHROPLASTY Left 05/22/2024 w/JAB FAMILY HISTORY: Family History Problem Relation Name Age of Onset Stroke Mother Ivana Vasquez Diabetes Mother Ivana Vasquez Cancer Mother Ivana Vasquez Heart disease Mother Ivana Vasquez Hypertension Mother Ivana Vasquez Mental illness Mother Ivana Vasquez Anxiety disorder Mother Ivana Vasquez Depression Mother Ivana Vasquez Migraines Mother Ivana Vasquez Restless legs syndrome Mother Ivana Vasquez Heart disease Father Chava Vasquez Diabetes Father Chava Vasquez Cancer Father Chava Vasquez Stroke Father Chava Vasquez Hypertension Father Chava Vasquez No Known Problems Maternal Grandmother No Known Problems Maternal Grandfather No Known Problems Paternal Grandmother No Known Problems Paternal Grandfather SOCIAL HISTORY: Social History Tobacco Use Smoking status: Never Smokeless tobacco: Never Vaping Use Vaping status: Never Used Substance Use Topics Alcohol use: Yes Comment: caffiene daily Drug use: Never Depression: Not at risk (03/18/2024) PHQ-2 PHQ-2 Score: 0 REVIEW OF SYMPTOMS: Review of Systems The review of systems, history and current medications list are all reviewed today. OBJECTIVE: Visit Vitals Ht 5' 9 Wt 186 lb BMI 27.47 kg/m Smoking Status Never BSA 2.03 m Physical Exam Alert and oriented, no acute distress. Mood and affect are appropriate. The incision on the left shoulder is well healed. Left shoulder: Active forward flexion is to 30 degrees, active abduction is to 30 degrees, internalrotation is to the back pocket. Passively, forward flexion is to 105 degrees, abduction is to 60 degrees, external rotation is to 90 degrees. Good strength with external rotation, decent strength with resisted supination. Positive weakness with forward flexion. Ortho Exam Results Imaging Two views, AP/axillary left shoulder(s) taken today and saved to the permanent medical record are reviewed. Slight anterior subluxation of humeral head on axillary view. Grashey appears unchanged compared to previous. No signs of prosthetic wear or loosening. No periprosthetic fractures. ASSESSMENT AND PLAN: I reviewed the history, physical exam, diagnostic studies, and diagnosis with the patient. Assessment & Plan 1. Post-operative status following left anatomic total shoulder arthroplasty: A CT arthrogram will be ordered to evaluate for any potential rotator tears. Laboratory tests will be conducted to assess inflammatory markers. If a tear is identified, options include repair or conversion to a reverse shoulder arthroplasty. A second opinion from a colleague specializing in shoulders will be considered before proceeding with further treatment. Follow-up: Follow-up appointment after completion of CT arthrogram and lab tests. A total of 20 to 29 minutes was spent on this patient encounter which included chart review, check in, nurse triage, history taking, physical examination, diagnostic study review, patient counseling and discussion, entering information into the patient's medical record, and coordinating patient care Diagnoses and all orders for this visit: Status post total shoulder replacement, left - XR shoulder 2+ views left - Interleukin-6; Future - C-reactive protein; Future - Sedimentation rate, automated; Future - CBC auto differential; Future Zen Rdz D.O. Attestation This note was created using voice recognition through [employer]. documented in this encounterWashington County Memorial [id number] Evaluation note* Diagnosis Onset Date Resolution Status Admit Date SARINA (generalized anxiety disorder) acuteApril 2024 10:09amGERD (gastroesophageal reflux disease)acuteApril 2024 10:09amLeft wrist painacuteApril 2024 10:09amPrimary osteoarthritis, left shoulderacuteApril 2024 10:09amStatus post reverse total arthroplasty of left shoulderacuteApril 2024 10:09amType 2 diabetes mellitus with diabetic polyneuropathyacuteApril 2024 10:09amType 2 diabetes mellitus with hyperglycemiaacuteApril 2024 10:09amGAD (generalized anxiety disorder)acuteMay 2024 10:52amGERD (gastroesophageal reflux disease)acuteMay 2024 10:52amLeft wrist painacuteMay 2024 10:52amMajor depressionacuteMay 2024 10:52amType 2 diabetes mellitus with diabetic polyneuropathyacuteMay 2024 10:52amType 2 diabetes mellitus with hyperglycemiaacuteMay 2024 10:52amWeight loss, intentionalacuteMay 2024 10:52amGAD (generalized anxiety disorder)acuteJuly 2024 9:47amGERD (gastroesophageal reflux disease)acuteJuly 2024 9:47amLeft wrist painacute Aruna 2024 9:47amMajor depressionacuteJuly 2024 9:47amType 2 diabetes mellitus with diabetic polyneuropathyacuteJuly 2024 9:47amType 2 diabetes mellitus with hyperglycemiaacuteJuly 2024 9:47amWeight loss, intentional acuteJuly 2024 9:47am [facility] Work Phone: [phone] History of Present illness Narrative* Zen Sanchez Kajal, DO - 07/04/2024 10:15 AM EDT Images from the original note were not included. @ENCDATE@ Chava Vasquez is a 54 y.o. male who presents for Post-op of the Left Shoulder [place] [facility] [place]PI: History of Present Illness The patient is 6 weeks status post left total shoulder arthroplasty surgery on 05/22/2024. is present on telephone. He reports experiencing stiffness in his shoulder, which he attributes to the recent cold weather. He recalls similar issues with his knee during winter following a surgical intervention. He had a challenging therapy session yesterday due to 2 consecutive nights of discomfort. On Monday night, he ex perienced sleep disturbances and nausea, and on Monday night, he reported severe pain, rating it as a 10 on a scale of 1 to 10, accompanied by nausea. He also describes an episode where he was lyingon his right side when he felt an intense heat in his arm, followed by a sensation peter to being cut with paper, which woke him up around 5:00 AM. This incident induced nausea, prompting him to take 2 Percocet tablets, which provided minimal relief. He continues to apply ice to his shoulder. He recounts an incident on Monday where he attempted to lift a 27-gallon tote filled with groceries using his leg and hand, but it started to slide sideways, causing him to reach out with his left arm, resulting in a pulling sensation. He experienced pain at [employer] on Monday, which led him to rest at home. He attended therapy early on Monday morning, where he performed stretches and discussed the Monday incident with his therapist. He is currently trying to determine whether the pain is due to muscle stretching or irritation. He has not applied any topical treatments to his scar. SUBJECTIVE: MEDICATIONS: Current Outpatient Medications Medication Instructions acetaminophen (TYLENOL) 1,000 mg, 2 times daily ALPRAZolam (XANAX) 0.25 mg, Every 8 hours PRN atorvastatin (LIPITOR) 80 mg, Nightly CeleBREX 200 mg citalopram (CELEXA) 40 mg, Daily [facility] Stool Softener 100 MG capsule TAKE 1 CAPSULE BY MOUTH TWICE A DAY NEEDED FOR CONSTIPATION empagliflozin (JARDIANCE) 10 mg, Oral, Daily etodolac (LODINE) 500 mg, 2 times daily ibuprofen 600 mg, Daily PRN Janumet 50-1000 MG tablet 1 tablet, 2 times daily with meals Journavx 50 mg, Oral, Every 12 hours, For the first dose, take 2 tablets (100 mg) on an empty stomach at least 1 hour before or 2 hours after food. Starting 12 hours after the initial dose, take 1 tablet (50 mg) every 12 hours with or without food. omeprazole (PriLOSEC) [address] capsule TAKE 1 CAPSULE ON EMPTY STOMACH FOLLOWED IN 30 MINUTES BY BKFST triamcinolone (Kenalog) 0.1 % ointment APPLY TO AFFECTED AREA ONCE A DAY NEEDED FOR ITCHING ALLERGIES: No Known Allergies SURGICAL HISTORY: Past Surgical History: Procedure Laterality Date ANTERIOR CRUCIATE LIGAMENT REPAIR Left APPENDECTOMY CHOLECYSTECTOMY HERNIA REPAIR KNEE SURGERY Left x3 NECK SURGERY ACD/ACF SHOULDER ARTHROSCOPY Left 04/07/2023 JAB TOTAL SHOULDER ARTHROPLASTY Left 05/22/2024 w/JAB REVIEW OF SYMPTOMS: The review of systems, history and current medications list are all reviewed today. OBJECTIVE: Visit Vitals Ht 5' 9 Wt 186 lb BMI 27.47 kg/m Smoking Status Never BSA 2.03 m Physical Exam LEFT SHOULDER Incision benign. No erythema. No ecchymosis. The patient's left arm can be actively raised to 40 degrees. Abduction of the left arm is possible to 30 degrees. External rotation of the left arm is about 40 degrees with the elbow at the side. Good strength is observed with external rotation and resisted supination of the left arm. Decent strength is noted with belly press on the left arm. Positive drop arm test on the left side. Results 1 views, AP, left shoulder(s) taken today and saved to the permanent medical record are reviewed. Prosthesis is unchanged in position and alignment. No signs of prosthetic wear or loosening. No periprosthetic fractures. ASSESSMENT AND PLAN: I reviewed the history, physical exam, diagnostic studies, and diagnosis with the patient. Assessment & Plan 1. Post-operative status following left total shoulder arthroplasty. He is currently 6 weeks post-surgery. It is premature to ascertain if any damage has occurred during the recent episodes. The plan is to gradually discontinue the use of the sling, with the pillow component being removed today. The sling can still be utilized in public settings if necessary. A trial of Journavx, a non-narcotic sodium channel remberto, will be initiated for a duration of 2 weeks toalleviate discomfort. If there is no progression in his condition, advanced imaging may be considered. Follow-up The patient will follow up in 6 weeks with xrays. Diagnoses and all orders for this visit: Status post total shoulder replacement, left - XR shoulder 2+ views left - Suzetrigine (Journavx) 50 MG tablet; Take 50 mg by mouth every 12 (twelve) hours for 14 days For the first dose, take 2 tablets (100 mg) on an empty stomach at least 1 hour before or 2 hours after food. Starting 12 hours after the initial dose, take 1 tablet (50 mg) every 12 hours with or withoutfood. Zen Rdz D.O. Attestation This note was created using voice recognition through [employer]. documented in this encounterWashington County Memorial [id number] History of Present illness Narrative* Zen Rdz DO - 06/06/2024 10:00 AM EDT Images from the original note were not included. @AILEENDATE@ Chava Vasquez is a 54 y.o. male who presents for Post-op of the Left Shoulder [place] [facility] [place] HPI: History of Present Illness The patient is 15 days status post left anatomic total shoulder arthroplasty, surgery on 05/22/2024. He reports that the bandage was replaced this morning due to it becoming dislodged during a shower.He has been adhering to the prescribed regimen, which includes icing the shoulder, maintaining rest, and performing hand/wrist/elbow exercises instructed. He expresses a desire to commence rehabilitation at [place] and requests [facility] as his therapist. He requests a refill of Percocet, which he primarily uses for pain management at night. SUBJECTIVE: MEDICATIONS: Current Outpatient Medications Medication Instructions acetaminophen (TYLENOL) 1,000 mg, 2 times daily ALPRAZolam (XANAX) 0.25 mg, Every 8 hours PRN atorvastatin (LIPITOR) 80 mg, Nightly CeleBREX 200 mg citalopram (CELEXA) 40 mg, Daily [facility] Stool Softener 100 MG capsule TAKE 1 CAPSULE BY MOUTH TWICE A DAY NEEDED FOR CONSTIPATION etodolac (LODINE) 500 mg, 2 times daily glimepiride (AMARYL) 4 mg, Oral, Daily before breakfast ibuprofen 600 mg, Daily PRN Janumet 50-1000 MG tablet 1 tablet, 2 times daily with meals ouvyfaaz-yethxtrlpf-inltiuvhx-hydrocortisone (Cortisporin) 1 % ophthalmic ointment Apply to affected eye(s) omeprazole (PriLOSEC) [address] capsule TAKE 1 CAPSULE ON EMPTY STOMACH FOLLOWED IN 30 MINUTES BY EDYTAFST oxyCODONE-acetaminophen (Percocet) 5-325 MG tablet 1-2 tablets, Oral, Every 4 hours PRN triamcinolone (Kenalog) 0.1 % ointment APPLY TO AFFECTED AREA ONCE A DAY NEEDED FOR ITCHING ALLERGIES: No Known Allergies SURGICAL HISTORY: Past Surgical History: Procedure Laterality Date ANTERIOR CRUCIATE LIGAMENT REPAIR Left APPENDECTOMY CHOLECYSTECTOMY HERNIA REPAIR KNEE SURGERY Left x3 NECK SURGERY ACD/ACF SHOULDER ARTHROSCOPY Left 04/07/2023 JAB TOTAL SHOULDER ARTHROPLASTY Left 05/22/2024 w/JAB REVIEW OF SYMPTOMS: The review of systems, history and current medications list are all reviewed today. OBJECTIVE: Visit Vitals Ht 5' 9 Wt 187 lb BMI 27.62 kg/m Smoking Status Never BSA 2.03 m Physical Exam LEFT SHOULDER Incision benign. No swelling, no erythema. Elbow and wrist flexion/extension intact. Makes a fist. Extends all fingers. Hand well perfused Results Two views, AP/outlet left shoulder(s) taken today and saved to the permanent medical record are reviewed. Prosthesis is unchanged in position and alignment. No signs of prosthetic wear or loosening. No periprosthetic fractures. ASSESSMENT AND PLAN: I reviewed the history, physical exam, diagnostic studies, and diagnosis with the patient. Assessment & Plan 1. Post-operative status following left anatomic total shoulder arthroplasty. The primary concern is the potential development of stiffness in the shoulder. The strength of the shoulder is expected to improve gradually over time, but maintaining mobility is crucial. He was advised to commence pendulum exercises, performing 10 repetitions in each direction a few times daily. He was instructed on supine forward flexion stretches. A handout detailing these exercises was provided. He was also instructed to continue icing the shoulder. He can spend time out of the sling at home but should wear it when leaving the house or engaging in activities. A prescription for Percocet was sent to [facility] in [place]. Physical therapy will be initiated next week, and an x-ray will be conducted during the follow-up visit in 4 weeks. Diagnoses and all orders for this visit: Status post total shoulder replacement, left - XR shoulder 2+ views left - oxyCODONE-acetaminophen (Percocet) 5-325 MG tablet; Take 1-2 tablets by mouth every 4 (four) hours if needed for severe pain for up to 7 days - Ambulatory referral to Physical Therapy; Future Zen Rdz D.O. Attestation This note was created using voice recognition through [employer]. documented in this encounterWashington County Memorial [id number] NoteInterdisciplinary Note - PT PT Evaluation completed with an [facility] score of 24/24. Pt was able to perform functional tasks at Mod I level due to left shoulder surgery and in sling. Pt instructed in elbow and wrist ROM only with no motion at shoulder. Pt performed functional tasks well. No further PT services needed during acute care stay [facility]02-27-2025 Evaluation + Plan noteExtracted from: Title:Discharge NoteAuthor:Joe Denton DODate:05/23/24 Prescriptions bacitracin/HC/neomycin/polymyxin B Opth Oint, 1 madelyn, OPTH, TID CeleBREX 200 mg Cap, 200 mg= 1 cap(s), Oral, Daily Colace 100 mg Cap, 100 mg= 1 cap(s), Oral, BID, PRN Colace 100 mg Cap, 100 mg= 1 cap(s), Oral, BID, PRN gabapentin 300 mg Cap, 300 mg= 1 cap(s), Oral, TID Keflex 500 mg Cap, 500 mg= 1 cap(s), Oral, q8hr ketorolac 10 mg Tab, 10 mg= 1 tab(s), Oral, q8hr Percocet 5 mg-325 mg oral tablet, See Instructions Home alprazolam 0.25 mg Tab, 0.25 mg= 1 tab(s), Oral, q8hr, PRN atorvastatin 80 mg Tab, 80 mg= 1 tab(s), Oral, Daily CeleXA 20 mg Tab, 20 mg= 1 tab(s), Oral, Daily glimepiride 1 mg Tab, 1.5 mg= 1.5 tab(s), Oral, Daily Janumet 50 mg/1000 mg oral tablet, 1 tab(s), Oral, BID omeprazole 40 mg Cap-DR, 40 mg= 1 cap(s), Oral, Daily sildenafil 100 mg Tab, 100 mg= 1 tab(s), Oral, Daily, PRN With When Contact Information Zen Rdz 06/04/2024 11:15 AM EDT [address] [place] [address]- mcTEL (1) Additional Instructions: Appointment has already been scheduled. Call for any problems. Post Op Patient Instructions - FT (Custom) (CUSTOM) Shoulder Cryocuff Patient Instructions - FT (CUSTOM) Soumya Rdz - Shoulder Replacement (Custom) Extracted from:Title:Admission H & PAuthor:Joe Denton DODate:05/22/24 Patient will be admitted und er observation status due to estimated length of stay less than 2 midnights. All images, labs, EKGs reviewed DVT PPx PAS bilaterally Diet regular CODE STATUS full code 1. Serotonin syndrome (G90.81: Serotonin syndrome) Postop anesthesia concern for serotonin syndrome, patient does not appear to be hyperreactive with tremors, clonus, or reflexes Possibly secondary to reaction to anesthesia Patient normally takes Celexa daily Patient did receive Celebrex, flumazenil, Toradol, Versed, propofol, rocuronium, sugammadex, TXA Every hour neurochecks IV fluids As needed Ativan Consult neuro May need MRI Ordered: Initial Hospital Care/Day Moderate 55 Minutes [id number] 2. History of left shoulder replacement (Z96.612: Presence of left artificial shoulder joint) Management per orthopedic surgery PT/OT, antibiotics, pain control poor orthopedic surgery 3. Controlled type 2 diabetes mellitus with hyperglycemia, without long-term current use of insulin(E11.65: Type 2 diabetes mellitus with hyperglycemia) Accu-Cheks, SSI as needed Patient normally on orals will hold at this time 4. SARINA (generalized anxiety disorder) (F41.1: Generalized anxiety disorder) Normally take Xanax at night 5. Hyperlipidemia type II (E78.01: Familial hypercholesterolemia) Statin Orders: acetaminophen, 650 mg = 2 tab(s), Tab, Oral, q6hr PRN Pain, Routine, Start date 05/22/24 18:40:00 EST, 05/22/24 18:40:00 EST glucose, 50 mL, Soln-IV, IV Push, Once PRN Blood glucose, Routine, Start date 05/22/24 18:45:00 EST hydrALAZINE, 10 mg = 0.5 mL, Injection, IV Push, q6hr PRN Other (see comment), Routine, Start date 05/22/24 18:40:00 EST, 05/22/24 18:40:00 EST insulin lispro, 0-10 Unit(s), Injection-Insulin, SubCutaneous, QIDACHS, Routine, Start date 05/22/24 21:00:00 EST lorazepam, 0.5 mg = 0.25 mL, Injection, IV Push, q6hr PRN Anxiety, Routine, Start date 05/22/24 18:56:00 EST, 05/22/24 18:56:00 EST morphine, 2 mg = 1 mL, Injection, IV Push, q4hr PRN Pain for 5 day(s), Stop date 05/27/24 18:39:00 EST, Routine, Start date 05/22/24 18:40:00 EST, 05/22/24 18:40:00 EST ondansetron, 4 mg = 2 mL, Injection, IV Push, q6hr PRN Nausea, Routine, Start date 05/22/24 18:40:00 EST, 05/22/24 18:40:00 EST senna, 17.2 mg = 2 tab(s), Tab, Oral, BID PRN Other (see comment), Routine, Start date 05/22/24 18:40:00 EST, 05/22/24 18:40:00 EST Sodium Chloride 0.9% intravenous solution 1,000 mL, 1,000 mL, IV, 75 mL/hr, Routine, Start date 05/22/24 18:40:00 EST, 13.3 hour(s), Total volume (mL): 1,000, 85.4 kg, 2.05, m2 Activity As Tolerated Basic Metabolic Panel Basic Metabolic Panel Below the Knee Intermittent Pneumatic Compression Device Cardiac Monitoring CBC w/ Auto Diff CBC w/ Auto Diff Change Attending Hypoglycemia Protocol Responsive Patient Hypoglycemia Protocol Unresponsive Patient Incentive Spirometry Neurological Assessment Occupational Therapy Evaluate Patient, Develop a Plan of Care and Implement Plan Physical Therapy Evaluate Patient, Develop a Plan of Care and Implement Plan Pulse Oximetry Regular Diet Resuscitation Status - Full Routine Capillary Glucose POC TSH With T4fr Reflex Vital Signs Weight Extracted from:Title:ANES Pre-operative NoteAuthor:Art PHAM, Son Mes[place].Date: 05/22/24 Plan [place] [employer]esthesiologists (ASA) physical status classification: Class II. Anesthetic Preoperative Plan: Anesthesia General. Regional Supraclavicular block.[facility] [id number] NoteInterdisciplinary Note - OT Pt is seen this date for OT evaluation. AMPAC score 20/24. Pt is post-op L shoulder replacement andLUE is secured in sling. Pt requires SBA/CGA for functional mobility without AD, and will require minimal assist for some aspects of ADLs due to immobilization of L shoulder. Pt will have support from spouse at home for these tasks. Pt to d/c home today per nursing. No further OT needs at acute level, pt will likely continue with HH vs OP services as instructed by ortho at follow-up.[facility]02-27-2025 NotePatient Education - Text [place], [place] [facility] DISCHARGE INSTRUCTIONS: SHOULDER REPLACEMENT MEDICATIONS You will be given a prescription for pain medication. This should be taken with food as needed. This may cause stomach upset, dizziness, and possible constipation. Please notify the office if you have any medication allergies to this type of medication or if any problems develop with the medication. DRESSING CHANGES Leave your bandage in place until your follow up visit. The bandage is waterproof, so you may shower it home. Any increase in pain, temperature over 101 degrees, redness, or drainage should be reported to the office prior to your first office visit. ACTIVITY You may continue to progress activity as comfortably tolerated with your opposite arm. You may begin to use your elbow, wrist, and hand as directed in physical therapy. You should only remove your sling for bathing and to perform range of motion exercises for the hand, wrist, and elbow. Do not actively move your shoulder Continue to ice the shoulder several times per day until follow up. ANESTHESIA PRECAUTIONS You should not operate a vehicle, automobile, bicycle or motorcycle, machinery, or power tools, make any important decisions, or drink alcohol for 24 hours. It may be beneficial to have a responsible adult remain with you for your first 24 hours after surgery. You may be drowsy and light-headed. DRIVING Driving is legal, however, if you are involved in an accident, you must be able to prove that you maintained full control of your vehicle. For this reason, it is advised that you do not drive until your strength returns. PROBLEMS You should notify the office for any persistent or heavy bleeding, temperature above 101, redness, swelling, or drainage from the operative site, severe pain at the operative site, or the developmentof persistent vomiting. Zen Rdz DO [facility] [address] [place] [address] Reviewed: [facility]02-27-2025 NoteDischarge Summary Admission and Discharge Information Admitting Physician - Zen Rdz DO Consulting Physician - Joe Denton DO Referring Physician - Zen Rdz DO Admitting Diagnoses: Discharge Order Date Discharge Patient - Ordered -- 05/23/24 10:36:00 EST Discharge Diagnoses 1. 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 Serotonin syndrome, 05/22/2024 3. History of left shoulder replacement, 05/22/2024 4. Controlled type 2 diabetes mellitus with hyperglycemia, without long-term current use of insulin, 05/22/2024 5. SARINA (generalized anxiety disorder), 05/22/2024 6. Hyperlipidemia type II, 05/22/2024 7. Blepharitis, 05/23/2024 Procedure History Arthroplasty of left shoulder (05/22/2024), Arthroscopy of shoulder with biceps tenodesis (04/07/2023), EGD - Esophagogastroduodenoscopy (08/05/2020), Repair of umbilical hernia (11/25/2014), Appendectomy (2014), Colonoscopy (02/24/2014), EGD - Esophagogastroduodenoscopy (02/24/2014), Cholecystectomy (03/27/2007), Arthroscopy of knee, Arthroscopy of knee, Cervical spinal fusion. Hospital Course 53-year-old male with past medical history of diabetes, HLD, anxiety, had left shoulder surgery 05/22 and I was asked to admit due to possible serotonin syndrome after surgery. Per anesthesia patient woke up and was very weak cannot move extremities and eyes were dilated. Patient did receive Celebrex, flumazenil, Toradol, Versed, propofol, rocuronium, sugammadex, TXA. Per anesthesiologist patient was starting to do mildly better several hours after surgery. When I did see patient he was still weak. Per patient has multiple surgeries in the past without reactions like this before. Patient denies any recent illness, chest pain, fever chills, nausea vomiting diarrhea or other symptoms at this time. Due to the concern of serotonin syndrome patient was admitted to ICU for close monitoring. Patient had every hour neurochecks. Patient's symptoms seem to gradually improve throughout stay. Following day patient seemed to be completely resolved. Patient states he was back to his baseline.Patient's symptoms seem consistent with anesthesia medication reaction and did not have symptoms truly consistent with serotonin syndrome. The only complaint he did have was his left eyelid was mildly swollen and red consistent with possible blepharitis and was started on antibiotic ointment. He was very eager to be discharged. I did discuss in great detail with patient as well as diagnosis and treatment plan. Answered all questions patient as well as had. Patient stable at discharge. Medication changes Antibiotics and pain meds per orthopedic surgery Antibiotic ointment 3 times daily Follow-up appointments Orthopedic surgery as instructed PCP 5 to 7 days Discharge time 38 minutes which included extensive conversation with patient as well as about diagnosis and treatment plan. Along with communication with consultants, nursing, case management. Services Consulted Consult to Hospitalist - Ordered -- 05/22/24 15:52:00 EST, serotonin syndrome post op, Consult and Co-manage Physical Exam Vitals & Measurements T: 36.6 ???C(Oral) TMIN: 36.6 ???C(Oral) TMAX: 36.9 ???C(Temporal Artery) HR: 80(Monitored) RR: 17 BP: 128/82 SpO2: 97% HT: 177.8 cm WT: 83.5 kg General: NAD Skin: Warm, dry Head: No trauma, normocephalic Neck: Trachea midline, supple, negative for JVD Eye: Conjunctive are clear, clear sclera , EOMI, mild left eye edema ENMT: oral mucosa moist, no lesions or edema nose or external ears Cardiovascular: mild tachy but regular, S1-S2 present, negative for murmurs rubs or gallops Respiratory: Lungs clear to auscultation, bilateral symmetric movement, negative for wheezes rales or rhonchi Chest wall: no deformity. Gastrointestinal: Abdomen soft, bowel sounds present, nontender to palpation Back: No tenderness Extremities: LUE in sling, no edema Neurological: awake, alert, speech normal, cranial nerves II through XII intact, numbness resolved,no clonus, no hyperreflexia noted, alert and oriented x3, RUE 5/5 strength, BLE 5/5 strength Psychiatric: cooperative, affect appropriate for age, pleasant Tests Performed CBC w/ Auto Diff -- Results Pending -- XR Shoulder Complete Left Please visit your patient portal for your results or contact your primary care physician. Discharge Plan Discharge Medication List Prescriptions bacitracin/HC/neomycin/polymyxin B Opth Oint, 1 madelyn, OPTH, TID CeleBREX 200 mg Cap, 200 mg= 1 cap(s), Oral, Daily Colace 100 mg Cap, 100 mg= 1 cap(s), Oral, BID, PRN Colace 100 mg Cap, 100 mg= 1 cap(s), Oral, BID, PRN gabapentin 300 mg Cap, 300 mg= 1 cap(s), Oral, TID Keflex 500 mg Cap, 500 mg= 1 cap(s), Oral, q8hr ketorolac 10 mg Tab, 10 mg= 1 tab(s), Oral, q8hr Percocet 5 mg-325 mg oral tablet, See Instructions Home alprazolam 0.25 mg Tab, 0.25 mg= 1 tab(s), Oral, q8hr, PRN atorvastatin 80 mg Tab, 80 mg= 1 tab(s), Oral (more content not included)... [facility]:Result Comment: Electronically Signed By: Joe Denton DO.manuel\Date and Time Signed: 05/23/24 10:36 EST 05-23-2024 NoteKathy Understands Education Yes [place] Education Video Avoiding Infections in the Hospital [place] Learning Participants [facility]Fisher [facility] NoteHistory and Physical History of Present Illness 53-year-old male with past medical history of diabetes, HLD, anxiety, had left shoulder surgery 05/22 and I was asked to admit due to possible serotonin syndrome after surgery. Per anesthesia patient woke up and was very weak cannot move extremities and eyes were dilated. Patient did receive Celebrex, flumazenil, Toradol, Versed, propofol, rocuronium, sugammadex, TXA. Per anesthesiologist patient was starting to do mildly better several hours after surgery. When I did see patient he was still weak. Per patient has multiple surgeries in the past without reactions like this before. Patient denies any recent illness, chest pain, fever chills, nausea vomiting diarrhea or other symptoms at this time. Patient states he does not want urinary catheter. Discussed CODE STATUS with patient would like to be full code. Review of Systems Scoring Yeung Fall Risk Score: 45 High (05/22/24) Physical Exam Vitals & Measurements T: 36.9 ???C(Oral) TMIN: 36.4 ???C(Axillary) TMAX: 36.9 ???C(Temporal Artery) HR: 102(Monitored) RR: 12 BP: 129/95 SpO2: 95% HT: 177.8 cm WT: 85.4 kg General: NAD Skin: Warm, dry Head: No trauma, normocephalic Neck: Trachea midline, supple, negative for JVD Eye: Conjunctive are clear, clear sclera , EOMI ENMT: oral mucosa moist, no lesions or edema nose or external ears Cardiovascular: mild tachy but regular, S1-S2 present, negative for murmurs rubs or gallops Respiratory: Lungs clear to auscultation, bilateral symmetric movement, negative for wheezes rales or rhonchi Chest wall: no deformity. Gastrointestinal: Abdomen soft, bowel sounds present, nontender to palpation Back: No tenderness Extremities: LUE in sling, no edema Neurological: awake, alert, speech normal, cranial nerves II through XII intact, numbness ble, alert and oriented x3, RUE 3/6 strength, BLE 3/6 strength Psychiatric: cooperative, affect appropriate for age, pleasant Lab Results Size: CENTERED (05/22/24 11:45:25) Size: SIZE 3 (05/22/24 11:45:25) Size: 48 MM AND 18 MM (05/22/24 11:45:25) Glucose Cap: 200 mg/dL High (05/22/24 17:49:00) POC Device SN: [id number] (05/22/24 17:49:00) POC User ID: [id number] (05/22/24 17:49:00) POC Username: [email or web address] Username (05/22/24 17:49:00) ABO/Rh: A POS (05/22/24 08:13:00) ABSC Gel Interp: Negative (05/22/24 08:13:00) Assessment/Plan Patient will be admitted under observation status due to estimated length of stay less than 2 midnights. All images, labs, EKGs reviewed DVT PPx???PAS bilaterally Diet???regular CODE STATUS???full code 1. Serotonin syndrome (G90.81: Serotonin syndrome) Postop anesthesia concern for serotonin syndrome, patient does not appear to be hyperreactive with tremors, clonus, or reflexes Possibly secondary to reaction to anesthesia Patient normally takes Celexa daily Patient did receive Celebrex, flumazenil, Toradol, Versed, propofol, rocuronium, sugammadex, TXA Every hour neurochecks IV fluids As needed Ativan Consult neuro May need MRI Ordered: Initial Hospital Care/Day Moderate 55 Minutes [id number] 2. History of left shoulder replacement (Z96.612: Presence of left artificial shoulder joint) Management per orthopedic surgery PT/OT, antibiotics, pain control poor orthopedic surgery 3. Controlled type 2 diabetes mellitus with hyperglycemia, without long-term current use of insulin(E11.65: Type 2 diabetes mellitus with hyperglycemia) Accu-Cheks, SSI as needed Patient normally on orals will hold at this time 4. SARINA (generalized anxiety disorder) (F41.1: Generalized anxiety disorder) Normally take Xanax at night 5. Hyperlipidemia type II (E78.01: Familial hypercholesterolemia) Statin Orders: acetaminophen, 650 mg = 2 tab(s), Tab, Oral, q6hr PRN Pain, Routine, Start date 05/22/24 18:40:00 EST, 05/22/24 18:40:00 EST glucose, 50 mL, Soln-IV, IV Push, Once PRN Blood glucose, Routine, Start date 05/22/24 18:45:00 EST hydrALAZINE, 10 mg = 0.5 mL, Injection, IV Push, q6hr PRN Other (see comment), Routine, Start date 05/22/24 18:40:00 EST, 05/22/24 18:40:00 EST insulin lispro, 0-10 Unit(s), Injection-Insulin, SubCutaneous, QIDACHS, Routine, Start date 05/22/24 21:00:00 EST lorazepam, 0.5 mg = 0.25 mL, Injection, IV Push, q6hr PRN Anxiety, Routine, Start date 05/22/24 18:56:00 EST, 05/22/24 18:56:00 EST morphine, 2 mg = 1 mL, Injection, IV Push, q4hr PRN Pain for 5 day(s), Stop date 05/27/24 18:39:00 EST, Routine, Start date 05/22/24 18:40:00 EST, 05/22/24 18:40:00 EST ondansetron, 4 mg = 2 mL, Injection, IV Push, q6hr PRN Nausea, Routine, Start date 05/22/24 18:40:00 EST, 05/22/24 18:40:00 EST senna, 17.2 mg = 2 tab(s), Tab, Oral, BID PRN Other (see comment), Routine, Start date 05/22/24 18:40:00 EST, 05/22/24 18:40:00 EST Sodium Chloride 0.9% intravenous solution 1,000 mL, 1,000 mL, IV, 75 mL/hr, Routine, Start date 05/22/24 18:40:00 EST, 13.3 hour(s), Total volume (mL): 1,000, 85.4 kg, 2.05, m2 (more content not included)...[facility]:Result Comment: Electronically Signed By: Joe Denton DO.br\Date and Time Signed: 05/22/24 19:03 [id number] NotePatient Education - Text [place], [place] [facility] DISCHARGE INSTRUCTIONS: SHOULDER REPLACEMENT MEDICATIONS You will be given a prescription for pain medication. This should be taken with food as needed. This may cause stomach upset, dizziness, and possible constipation. Please notify the office if you have any medication allergies to this type of medication or if any problems develop with the medication. DRESSING CHANGES Leave your bandage in place until your follow up visit. The bandage is waterproof, so you may shower it home. Any increase in pain, temperature over 101 degrees, redness, or drainage should be reported to the office prior to your first office visit. ACTIVITY You may continue to progress activity as comfortably tolerated with your opposite arm. You may begin to use your elbow, wrist, and hand as directed in physical therapy. You should only remove your sling for bathing and to perform range of motion exercises for the hand, wrist, and elbow. Do not actively move your shoulder Continue to ice the shoulder several times per day until follow up. ANESTHESIA PRECAUTIONS You should not operate a vehicle, automobile, bicycle or motorcycle, machinery, or power tools, make any important decisions, or drink alcohol for 24 hours. It may be beneficial to have a responsible adult remain with you for your first 24 hours after surgery. You may be drowsy and light-headed. DRIVING Driving is legal, however, if you are involved in an accident, you must be able to prove that you maintained full control of your vehicle. For this reason, it is advised that you do not drive until your strength returns. PROBLEMS You should notify the office for any persistent or heavy bleeding, temperature above 101, redness, swelling, or drainage from the operative site, severe pain at the operative site, or the developmentof persistent vomiting. Zen Rdz DO [facility] [address] [place] [id number] Reviewed: [facility]02-26-2025 Hospital Discharge instructions Patient Education 05/22/2024 13:03:53 Post Op Patient Instructions - FT (Custom) (CUSTOM) 05/22/2024 13:03:51 Shoulder Cryocuff Patient Instructions - FT (CUSTOM) 05/22/2024 10:15:00 Soumya Rdz - Shoulder Replacement (Custom) [place], [place] [facility] DISCHARGE INSTRUCTIONS: SHOULDER REPLACEMENT MEDICATIONS You will be given a prescription for pain medication. This should be taken with food as needed. This may cause stomach upset, dizziness, and possible constipation. Please notify the office if you have any medication allergies to this type of medication or if any problems develop with the medication. DRESSING CHANGES Leave your bandage in place until your follow up visit. The bandage is waterproof, so you may shower it home. Any increase in pain, temperature over 101 degrees, redness, or drainage should be reported to the office prior to your first office visit. ACTIVITY You may continue to progress activity as comfortably tolerated with your opposite arm. You may begin to use your elbow, wrist, and hand as directed in physical therapy. You should only remove your sling for bathing and to perform range of motion exercises for the hand, wrist, and elbow. Do not actively move your shoulder Continue to ice the shoulder several times per day until follow up. ANESTHESIA PRECAUTIONS You should not operate a vehicle, automobile, bicycle or motorcycle, machinery, or power tools, make any important decisions, or drink alcohol for 24 hours. It may be beneficial to have a responsible adult remain with you for your first 24 hours after surgery. You may be drowsy and light-headed. DRIVING Driving is legal, however, if you are involved in an accident, you must be able to prove that you maintained full control of your vehicle. For this reason, it is advised that you do not drive until your strength returns. PROBLEMS You should notify the office for any persistent or heavy bleeding, temperature above 101, redness, swelling, or drainage from the operative site, severe pain at the operative site, or the developmentof persistent vomiting. Zen Rdz, DO [facility] [address] [place], [place] [address] Reviewed: Follow Up Care 04/22/2024 13:57:10 With:MAX TUCKER Address: [address] [place] [address]- Business (1) When:7 to 10 days only if needed Comments:Call for followup appointment With:Zen Rdz Address: [address] [place] [address]- Business (1) When:06/04/2024 11:15:00 Comments:Appointment has already been scheduled. Call for any problems. [facility] 02-26-2025 NotePatient Education - Text [place], [place] [facility] DISCHARGE INSTRUCTIONS: SHOULDER REPLACEMENT MEDICATIONS You will be given a prescription for pain medication. This should be taken with food as needed. This may cause stomach upset, dizziness, and possible constipation. Please notify the office if you have any medication allergies to this type of medication or if any problems develop with the medication. DRESSING CHANGES Leave your bandage in place until your follow up visit. The bandage is waterproof, so you may shower it home. Any increase in pain, temperature over 101 degrees, redness, or drainage should be reported to the office prior to your first office visit. ACTIVITY You may continue to progress activity as comfortably tolerated with your opposite arm. You may begin to use your elbow, wrist, and hand as directed in physical therapy. You should only remove your sling for bathing and to perform range of motion exercises for the hand, wrist, and elbow. Do not actively move your shoulder Continue to ice the shoulder several times per day until follow up. ANESTHESIA PRECAUTIONS You should not operate a vehicle, automobile, bicycle or motorcycle, machinery, or power tools, make any important decisions, or drink alcohol for 24 hours. It may be beneficial to have a responsible adult remain with you for your first 24 hours after surgery. You may be drowsy and light-headed. DRIVING Driving is legal, however, if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 Alcohol use: Yes Comment: caffiene daily Drug use: Never No Known Allergies Synopsis SmartLink 12/18/2023 11/07/2023 00:00 10/19/2023 16:08 Antidiabetic medications Glimepiride 4 mg (2 MG TABS)-Discontinued (Dose adjustm) 4 mg (2 MG TABS) No sig Glimepiride 2 mg Daily before breakfast PO-Discontinued 2 mg Daily before breakfast PO Glimepiride 4 mg Daily before breakfast PO SITagliptin-metFORMIN HCl 1 tablet BID with meals PO (50-1000 MG TABS) 1 tablet BID with meals PO (50-1000 MG TABS) 1 tablet BID with meals PO (50-1000 MG TABS) No sig Labs MHPT A1C 7.6 Outpatient prescription Medication marked as long-term Patient-reported medication REVIEW OF SYMPTOMS: Review of Systems Constitutional: Negative for appetite change, fatigue and unexpected weight change. Eyes: Negative for visual disturbance. Respiratory: Negative for cough, shortness of breath and wheezing. Cardiovascular: Negative for chest pain, palpitations and leg swelling. Neurological: Negative for numbness. Endocrine: Negative for polydipsia, polyphagia and polyuria. OBJECTIVE: 12/18/2023 9:58 AM 11/07/2023 9:41 AM 10/19/2023 4:03 PM Vitals BMI 27.62 kg/m2 28.15 kg/m2 27.02 kg/m2 Systolic 130 138 Diastolic 84 88 Heart Rate 87 93 Temp 99.1 F 97.8 F 97.4 F Height (in) 5' 9 5' 9 5' 9 Weight (lb) 187 190.6 183 Visit Report Report Report Report Physical Exam Constitutional: General: He is not in acute distress. Appearance: Normal appearance. Cardiovascular: Rate and Rhythm: Normal rate and regular rhythm. Heart sounds: No murmur heard. No friction rub. No gallop. Pulmonary: Breath sounds: Normal breath sounds. No wheezing, rhonchi or rales. Musculoskeletal: General: No swelling. Neurological: Mental Status: He is alert. ASSESSMENT AND PLAN: Problem List Items Addressed This Visit Type 2 diabetes mellitus without complication, without long-term current use of insulin ([facility]) -Primary During the appointment today all pertinent labs, [...] if they have any problems or questions. Chava Vasquez is making improvements and encouraged on [...] based on where his bgare currently running. Relevant Medications glimepiride (Amaryl) 4 MG tablet Follow up in about 3 months (around 03/18/2024) for Recheck. Patient's Medications New Prescriptions GLIMEPIRIDE (AMARYL) 4 MG TABLET Take 1 tablet (4 mg) by mouth in the morning. Take before meals. Previous Medications ALPRAZOLAM (XANAX) 0.25 MG TABLET Take 0.25 mg by mouth every 8 (eight) hours if needed for anxiety. ATORVASTATIN (LIPITOR) 80 MG TABLET Take 80 mg by mouth at bedtime. CITALOPRAM (CELEXA) 40 MG TABLET Take 40 mg by mouth Daily IBUPROFEN 600 MG TABLET Take 600 mg by mouth JANUMET 50-1000 MG TABLET Take 1 tablet by mouth in the morning and 1 tablet in the evening. Take with meals. OMEPRAZOLE (PRILOSEC) [address] CAPSULE TAKE 1 CAPSULE ON EMPTY STOMACH FOLLOWED IN 30 MINUTES BY [facility] TRAMADOL (ULTRAM) 50 MG TABLET Take 50 mg by mouth in the morning and 50 mg before bedtime. Modified Medications No medications on file Discontinued Medications GLIMEPIRIDE (AMARYL) 2 MG TABLET Take 1 tablet (2 mg) by mouth in the morning. Take before meals. I have reviewed and reconciled the history and medication list with the patient today. documented in this encounterWashington [facility] [id number] Hospital Discharge instructions Patient Education 04/07/2023 11:34:21 Shoulder Cryocuff Patient Instructions - FT (CUSTOM) 04/07/2023 11:34:12 Post Op Patient Instructions - FT (Custom) (CUSTOM) 04/07/2023 09:07:26 Soumya Rdz - After Your Shoulder Arthroscopy (Custom) [place], [place] [facility] AFTER YOUR SHOULDER ARTHROSCOPY 1.Diet: Begin with a liquid diet and advance to your normal diet as tolerated. 2.Activity: You may remove your sling for bathing and to perform gentle range of motion exercises for the hand,wrist, and elbow. Bend and straighten your elbow [...] until your first post-operative visit at which timewe will discuss how and when to resume sports. 3. Driving: Driving is legal. If you are involved in an accident, you must be able to prove that you maintainedfull control of your vehicle. For this reason, [...] your operated shoulder. Although the dressing may becomemoist or blood stained, this is not usually [...] increasing pain (not relieved by rest, elevation, ice,and medication as prescribed), redness or swelling in your shoulder or arm, please contact the office or the hospital. If you notice increased drainage from the operative portals after the third day,this should also be reported. 9.Return Visit: Your first post-operative follow-up appointment is generally between 7 and 14 days after discharge from the hospital. You will be given an appointment card with your appointment information. Do not hesitate to call the office or the hospital if any problems or questions arise before your appointment. Zen Rdz, DO [facility] [address] [place], [place] [address] Reviewed: Follow Up Care 02/14/2023 08:34:24 With:Zen Rdz Address: [address] [place] [address]- Business (1) When:04/18/2022 13:45:00 Comments:Appointment has already been scheduled. Call for any problems. [facility]12-08-2023 Evaluation note* Encounter Date Diagnosis Assessment Notes Treatment Notes Treatment Clinical Notes Feb, Controlled type 2 di abetes mellitus with [...] Microalbumin, Dilated eye exam and Foot exam Feb,Wellness examination (ICD-10 - Z00.00)Healthy diet and exercise. Reviewed age-appropriate preventive testing recommended. Feb,ontrolled type 2 diabetes mellitus with diabetic polyneuropathy, without long-term current use of insulin (ICD-10 - E11.42)Inspect feet daily for cuts and calluses.Recommend diabetic shoes and inserts to prevent callus form ation.Fall precautions. Feb,Hyperlipemia, mixed (ICD-10 - E78.2)Instructed on diet and exercise with continued statin therapy.Discussed the beneficial effects of lowering cholesterol in reducing the risk for cerebrovascular and cardiovascular disease. Feb,astroesophageal reflux disease with esophagitis without hemorrhage (ICD-10 - K21.00)Diet instructions: Smaller portions, avoid eating and laying flat, avoid eating or drinking prior to bedtime. Weight loss. Feb,AD (generalized anxiety disorder) (ICD-10 - F41.1)Healthy diet and exercise. No change in medication. Generally using Xanax several times/wk Feb,Overweight (ICD-10 - E66.3)This patient has been instructed on a low-fat, high-fiber diet. They are instructed to reduce calories, portion sizes and snacks. It is recommended that they exercise for 30 minutes, 3-5 times weekly. Feb,Screening PSA (prostate specific antigen) (ICD-10 - Z12.5)Yearly ARLEEN and PSA [facility] Other 11-27-2023 Evaluation note* Encounter Date Diagnosis Assessment Notes Treatment Notes Treatment Clinical Notes Jan, Controlled type 2 di abetes mellitus with hyperglycemia, without long-term current use of insulin (ICD-10 - E11.65) [facility] Other 09-01-2023 Evaluation note* Encounter Date Diagnosis Assessment Notes Treatment Notes Treatment Clinical Notes Nov, Acute seasonal aller gic rhinitis, unspecified trigger (ICD-10 - J30.2) [facility] Other 08-04-2023 Evaluation note* Encounter Date Diagnosis Assessment Notes Treatment Notes Treatment Clinical Notes Oct, Gastroesophageal ref lux disease with esophagitis without hemorrhage (ICD-10 - K21.00) Diet instructions: Smaller portions, avoid eating and laying flat, avoid eating or drinking prior to bedtime. Weight loss. Increase PPI bid for now. Hold NSAIDs and steroids Oct,ontrolled type 2 diabetes mellitus with hyperglycemia, without long-term current use of insulin (ICD-10 - E11.65)This patient is following a comprehensive diabetic treatment [...] use. Instructed to stop medrol dose artem Oct,AD (generalized anxiety disorder) (ICD-10 - F41.1)Chronic condition w/ frequent exacerbation culminating in panic attacks He presently is only taking Xanax as needed. Stressed healthy diet, exercise and avoidance of stimulants Continue to use Xanax PRN Recommend initiating SSRI - update in month Oct,anic attack (ICD-10 - F41.0)Requires leave from work due to extreme anxiety/panic Tearful and unable to continue work in environment which triggers his reaction FMLA set up for intermittent leave I recommend that he take the next 5 days off to regroup - call if unable to return to work Oct,dverse effect of corticosteroids, initial encounter (ICD-10 - T38.0X5A)Exacerbation of GERD and anxiety after starting steroid pack. This was compounded by taking NSAIDs simultaneously Instructed to stop NSAIDS and steroids Use ice/Voltaren Gel instead. Oct,cute pain of left shoulder (ICD-10 - M25.512)ROM exercises, ice/heat and Voltaren Gel. PT was discussed but declined Subacromial injection was discussed but declined He prefers to see Orthopedics and will be making his own appt. Reassured that most likely is not serious injury but will take time to improve Oct,Strain of left rotator cuff capsule, initial encounter (ICD-10 - S46.012A)Avoid strenuous lifting but maintain ROM Exercises given to patient [facility] Other 04-26-2023 Evaluation note* Encounter Date Diagnosis Assessment Notes Treatment Notes Treatment Clinical Notes Jun, Controlled type 2 di abetes mellitus with [...] reviewed at the office visit. A1C: due Jun,ontrolled type 2 diabetes mellitus with hyperglycemia, without long-term current use of insulin (ICD-10 - E11.65)Inspect feet daily for cuts and calluses.Recommend diabetic shoes and inserts to prevent callus form ation.Fall precautions. Jun,rimary hypertension (ICD-10 - I10)This patient is instructed to consume a healthy, low-fat, low-salt diet. They are also encouraged to continue exercise to achieve/maintain a normal BMI. Jun,Strain of left knee, initial encounter (ICD-10 - S86.912A)Ice, elevate and rest. VOltaren Gel qid ROM exercises, call if pain worsens Jun,Hyperlipemia, mixed (ICD-10 - E78.2)Diet and exercise with continued statin therapy. Jun,astroesophageal reflux disease with esophagitis without hemorrhage (ICD-10 - K21.00)Diet instructions: Smaller portions, avoid eating and laying flat, avoid eating or drinking prior to bedtime. Weight loss. Had to restart PPI [facility] Other 04-17-2023 Evaluation note* Encounter Date Diagnosis Assessment Notes Treatment Notes Treatment Clinical Notes Jun, Superficial thrombop hlebitis of right upper extremity (ICD-10 - I80.8) [facility] Other 04-12-2023 Evaluation note* Encounter Date Diagnosis Assessment Notes Treatment Notes Treatment Clinical Notes Jun, Superficial thrombop hlebitis of right upper extremity (ICD-10 - I80.8) [facility] Other 04-04-2023 Evaluation note* Encounter Date Diagnosis Assessment Notes Treatment Notes Treatment Clinical Notes Jun, Superficial thrombop hlebitis of right upper extremity (ICD-10 - I80.8) Warm compresses, elevate and begin antibiotics Jun,AD (generalized anxiety disorder) (ICD-10 - F41.1)Healthy diet and keep active. Reassured [facility] Other 03-28-2023 Evaluation note* Encounter Date Diagnosis Assessment Notes Treatment Notes Treatment Clinical Notes May, Hyperlipemia, mixed (ICD-10 - E7 8.2) Diet and exercise with continued statin therapy. May,Elevated BP without diagnosis of hypertension (ICD-10 - R03.0)This patient is instructed to consume a healthy, low-fat, low-salt diet. They are also encouraged to continue exercise to achieve/maintain a normal BMI. Monitor BP at home w/o starting Amlodipine. - goal < 135/85 May,ontrolled type 2 diabetes mellitus with hyperglycemia, without long-term current use of insulin (ICD-10 - E11.65)This patient is following a comprehensive diabetic treatment plan. They are checking their feet daily for calluses and nonhealing ulcers. They are being seen for yearly dilated eye examinations. Goals: SBP less than 130, LDL less than 100, FBS less than 140, AC and A1C less than 7%. They are checking their BS daily, will which are reviewed at the office visit. May,ontrolled type 2 diabetes mellitus with diabetic polyneuropathy, without long-term current use of insulin (ICD-10 - E11.42)Inspect feet daily for cuts and calluses.Recommend diabetic shoes and inserts to prevent callus form ation.Fall precautions. May,AD (generalized anxiety disorder) (ICD-10 - F41.1)Healthy diet and exercise d/c SSRI Continue Xanax as needed, typically will take once daily Not to take at work due to sedative properties May,astroesophageal reflux disease with esophagitis without hemorrhage (ICD-10 - K21.00)Diet instructions: Smaller portions, avoid eating and laying flat, avoid eating or drinking prior to bedtime. Weight loss. 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 Repeat [facility] Other Evaluation + Plan note Future Appointments Appointment Date:04/07/2023 11:30:00 AM Scheduled Provider: Location:[facility] Future Appointments Appointment Date:05/22/2024 11:00:00 AM Scheduled Provider: Location:[facility] Appointment Type:Surgery [facility] Evaluation noteNo InformationNortExcela [facility] Other Evaluation noteNo assessment information available [facility] Work Phone: Evaluation note* Diagnosis Onset Date Resolution Status TONJA positive acuteGAD (generalized anxiety disorder)acuteType 2 diabetes mellitus with hyperglycemiaacuteWeakness of left shoulderacute [facility] Work Phone: Evaluation note* Diagnosis Arthritis of left shoulder region- Primary [facility]* Diagnosis Type 2 diabetes mellitus without complication, without long-term current use of insulin (CMS/HCC)- Primary Type 2 diabetes mellitus with hyperglycemia, without long-term current use of insulin (CMS/HCC) documented in this encounter [facility]* Diagnosis Type 2 diabetes mellitus with hyperglycemia, unspecified whether nursing home insulin use (CMS/HCC) Type 2 diabetes mellitus without complication, without long-term current use of insulin (CMS/HCC)- Primary Type 2 diabetes mellitus with hyperglycemia, without long-term current use of insulin (CMS/HCC) Type 2 diabetes mellitus without complication, without long-term current use of insulin (CMS/HCC) documented in this encounter [facility]* Diagnosis Type 2 diabetes mellitus with hyperglycemia, unspecified whether nursing home insulin use (CMS/HCC) Type 2 diabetes mellitus without complication, without long-term current use of insulin (CMS/HCC)- Primary Type 2 diabetes mellitus with hyperglycemia, without long-term current use of insulin (CMS/HCC) Type 2 diabetes mellitus without complication, without long-term current use of insulin (CMS/HCC) Arthritis of left shoulder region- Primary documented in this encounter [facility]* Diagnosis Type 2 diabetes mellitus with hyperglycemia, unspecified whether long term care administrator insulin use (CMS/[facility]) Type 2 diabetes mellitus without complication, without long-term current use of insulin (CMS/HCC)- Primary Type 2 diabetes mellitus with hyperglycemia, without long-term current use of insulin (CMS/HCC) Type 2 diabetes mellitus without complication, without long-term current use of insulin (CMS/HCC) Status post total shoulder replacement, left- Primary documented in this encounter [facility]* Diagnosis Type 2 diabetes mellitus with hyperglycemia, unspecified whether long term care administrator insulin use (CMS/[facility]) Type 2 diabetes mellitus without complication, without long-term current use of insulin- Primary Type 2 diabetes mellitus with hyperglycemia, without long-term current use of insulin (CMS/HCC) Type 2 diabetes mellitus without complication, without long-term current use of insulin Type 2 diabetes mellitus without complication, without long-term current use of insulin- Primary Status post total shoulder replacement, left- Primary documented in this encounter [facility]* Diagnosis Onset Date Resolution Status Admit Date SARINA (generalized anxiety disorder) acuteApril 2024 10:09amGERD (gastroesophageal reflux disease)acuteApril 2024 10:09amPrimary osteoarthritis, left shoulderacuteApril 2024 10:09amStatus post reverse total arthroplasty of left shoulderacuteApril 2024 10:09amType 2 diabetes mellitus with diabetic polyneuropathyacuteApril 2024 10:09amType 2 diabetes mellitus with hyperglycemiaacuteApril 2024 10:09am [facility] Work Phone: Evaluation note* Diagnosis Type 2 diabetes mellitus with hyperglycemia, unspecified whether long term care administrator insulin use (HCC) Type 2 diabetes mellitus without complication, without long-term current use of insulin (HCC)- Primary Type 2 diabetes mellitus with hyperglycemia, without long-term current use of insulin (HCC) Type 2 diabetes mellitus without complication, without long-term current use of insulin (HCC) Type 2 diabetes mellitus without complication, without long-term current use of insulin (HCC)- Primary Status post total shoulder replacement, left- Primary documented in this encounter [facility]* Diagnosis Type 2 diabetes mellitus with hyperglycemia, unspecified whether nursing home insulin use (HCC) Type 2 diabetes mellitus without complication, without long-term current use of insulin (HCC)- Primary Type 2 diabetes mellitus with hyperglycemia, without long-term current use of insulin (HCC) Type 2 diabetes mellitus without complication, without long-term current use of insulin (HCC) Type 2 diabetes mellitus without complication, without long-term current use of insulin (HCC)- Primary Left shoulder pain, unspecified chronicity- Primary Status post total shoulder replacement, left Acute postoperative pain of left shoulder documented in this encounter [facility] note* Diagnosis Type 2 diabetes mellitus with hyperglycemia, unspecified whether long term care administrator insulin use (HCC) Type 2 diabetes mellitus without complication, without long-term current use of insulin (HCC)- Primary Type 2 diabetes mellitus with hyperglycemia, without long-term current use of insulin (HCC) Type 2 diabetes mellitus without complication, without long-term current use of insulin (HCC) Type 2 diabetes mellitus without complication, without long-term current use of insulin (HCC)- Primary Status post total shoulder replacement, left- Primary documented in this encounter [facility] note* Diagnosis Left shoulder pain, unspecified chronicity- Primary S/P shoulder replacement, left Loose orthopedic implant, initial encounter Instability of left shoulder joint Other joint derangement, not elsewhere classified, shoulder region [facility] Diagnosis Type 2 diabetes mellitus with hyperglycemia, unspecified whether nursing home insulin use (HCC) Type 2 diabetes mellitus without complication, without long-term current use of insulin (HCC)- Primary Type 2 diabetes mellitus with hyperglycemia, without long-term current use of insulin (HCC) Type 2 diabetes mellitus without complication, without long-term current use of insulin (HCC) Type 2 diabetes mellitus without complication, without long-term current use of insulin (HCC)- Primary Status post total shoulder replacement, left- Primary documented in this encounter [facility]* Diagnosis 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 Aseptic necrosis of other bone site S/P shoulder replacement, left [facility]* Diagnosis Type 2 diabetes mellitus with hyperglycemia, unspecified whether long term care administrator insulin use (HCC) Type 2 diabetes mellitus without complication, without long-term current use of insulin (HCC)- Primary Type 2 diabetes mellitus with hyperglycemia, without long-term current use of insulin (HCC) Type 2 diabetes mellitus without complication, without long-term current use of insulin (HCC) Type 2 diabetes mellitus without complication, without long-term current use of insulin (HCC)- Primary Left wrist pain- Primary Pain in joint, forearm documented in [facility] encounter [facility] HealthcareHistory general Narrative - Reported* Type Description Date Medical History Screening PSA (prostate specific antigen) Medical HistoryDepression screeningMedical HistoryGAD (generalized anxiety disorder)Medical HistoryHyperlipemia, mixedMedical HistoryGastroesophageal reflux disease with esophagitis without hemorrhageMedical HistoryControlled type 2 diabetes mellitus with diabetic polyneuropathy, without long-term current use of insulinMedical HistoryControlled type 2 diabetes mellitus with hyperglycemia, without long-term current use of insulinMedical HistoryCOVIDMedical History EpistaxisMedical HistoryLow testosterone in maleMedical HistoryAcute stress reactionMedical HistoryPeyronie diseaseMedical HistoryContracture, right ankle Medical HistoryFoot pain, rightMedical HistoryPlantar fasciitis, rightMedical HistoryInfected sebaceous glandMedical HistoryExternal hemorrhoidsMedical HistoryParesthesiaMedical HistoryAcute seasonal allergic rhinitis, unspecified triggerMedical HistoryDyshidrotic eczemaMedical HistoryErectile dysfunction due to arterial insufficiencySurgical Historycervical fusionSurgical History cholecystectomySurgical HistoryappendectomySurgical Historyknee surgery X3 Surgical HistoryUPPR GI ENDOSCOPY, [id number] Hospitalization HistorySee Above [facility] Other History general Narrative - Reported* Type Description Date Medical History Screening PSA (prostate specific antigen) Medical HistoryDepression screeningMedical HistoryGAD (generalized anxiety disorder)Medical HistoryHyperlipemia, mixedMedical HistoryGastroesophageal reflux disease with esophagitis without hemorrhageMedical HistoryControlled type 2 diabetes mellitus with diabetic polyneuropathy, without long-term current use of insulinMedical HistoryControlled type 2 diabetes mellitus with hyperglycemia, without long-term current use of insulinMedical HistoryCOVIDMedical History EpistaxisMedical HistoryLow testosterone in maleMedical HistoryAcute stress reactionMedical HistoryPeyronie diseaseMedical HistoryContracture, right ankle Medical HistoryFoot pain, rightMedical HistoryPlantar fasciitis, rightMedical HistoryInfected sebaceous glandMedical HistoryExternal hemorrhoidsMedical HistoryParesthesiaMedical HistoryAcute seasonal allergic rhinitis, unspecified triggerMedical HistoryDyshidrotic eczemaMedical HistoryErectile dysfunction due to arterial insufficiencySurgical Historycervical fusionSurgical History cholecystectomySurgical HistoryappendectomySurgical Historyknee surgery X3 Surgical HistoryUPPR GI ENDOSCOPY, [id number] Surgical HistoryLeft shoulder arthroscopy/2023Hospitalization HistorySee Above [facility] Other Hospital course Narrative No data available for this section [facility] No data available for this section [facility] note No data available for this section [facility] HealthReason for referral (narrative)No reason for referral information availableK[facility] Work Phone: Summary Purpose Family History Relationship Condition Age at Onset Recorded Date/T david father Malignant neoplasm Unknown DeceasedUnknownHeart diseaseUnknownHypertensionUnknownDiabetes mellitusUnknown Not SpecifiedHypertensionUnknownMalignant neoplasmUnknown Relationship Condition Age at Onset Recorded Date/T david father Malignant neoplasm Unknown DeceasedUnknownHeart diseaseUnknownHypertensionUnknownDiabetes mellitusUnknown motherHypertensionUnknownMalignant neoplasmUnknown Advance Directives Advance Directive Response Recorded Date/ Time Advance Directives No June 28 8:55am Chief Complaint and Reason for Visit Chief Complaint lab results Chief Complaint lab results Reason for Visit TONJA positive SARINA (generalized anxiety disorder) Type 2 diabetes mellitus with hyperglycemia Weakness of left shoulder Chief Complaint lab results r76.0 OA MEDS RAYNAUDS disability paperworkReason for VisitANA positive SARINA (generalized anxiety disorder) Type 2 diabetes mellitus with hyperglycemia Weakness of left shoulder Chief Complaint Admit Date discuss several issue July 18, 2024 1 0:09am Reason for Visit Admit Date SARINA (generalized anxiety disorder) July 18, 2024 10:09am GERD (gastroesophageal reflux disease) A pril 2024 10:09am Primary osteoarthritis, left shoulder Ap ril 2024 10:09am 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 July 18, 2024 10:09am Type 2 diabetes mellitus with diabetic p olyneuropathy July 18, 2024 10:09am Type 2 diabetes mellitus with hyperglyce vasquez July 18, 2024 10:09am Chief Complaint Admit Date discuss several issue July 18, 2024 1 0:09am follow up August 13, 2024 10:52 am 3 month f/u October 02, 2024 9:47a m Reason for Visit Admit Date SARINA (generalized anxiety disorder) July 18, 2024 10:09am GERD (gastroesophageal reflux disease) A pril 2024 10:09am Left wrist pain July 18, 2024 10: 09am Primary osteoarthritis, left shoulder Ap ril 2024 10:09am 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 July 18, 2024 10:09am Type 2 diabetes mellitus with diabetic p olyneuropathy July 18, 2024 10:09am Type 2 diabetes mellitus with hyperglyce vasquez July 18, 2024 10:09am SARINA (generalized anxiety disorder) July 262024 10:52am GERD (gastroesophageal reflux disease) M ay 2024 10:52am Left wrist pain August 13, 2024 10:52 am Major depression August 13, 2024 10:52 am Type 2 diabetes mellitus with diabetic p olyneuropathy August 13, 2024 10:52am Type 2 diabetes mellitus with hyperglyce vasquez August 13, 2024 10:52am Weight loss, intentional August 13, 2024 10:52am SARINA (generalized anxiety disorder) October 02, 2024 9:47am GERD (gastroesophageal reflux disease) J [facility] 2024 9:47am Left wrist pain October 02, 2024 9:47a m Major depression October 02, 2024 9:47a m Type 2 diabetes mellitus with diabetic p olyneuropathy October 02, 2024 9:47am Type 2 diabetes mellitus with hyperglyce vasquez October 02, 2024 9:47am Weight loss, intentional October 02, 2024 9:47am Chief Complaint Admit Date 3 month f/u October 02, 2024 9:47a m 3 month f/u December 25, 2024 9: 47am Reason for Visit Admit Date Anemia October 02, 2024 9:47a m SARINA (generalized anxiety disorder) October 02, 2024 9:47am GERD (gastroesophageal reflux disease) J [facility] 2024 9:47am Left wrist pain October 02, 2024 9:47a m Major depression October 02, 2024 9:47a m Type 2 diabetes mellitus with diabetic p olyneuropathy October 02, 2024 9:47am Type 2 diabetes mellitus with hyperglyce vasquez October 02, 2024 9:47am Anemia December 25, 2024 9: 47am SARINA (generalized anxiety disorder) Octob er 2024 9:47am GERD (gastroesophageal reflux disease) O ctober 2024 9:47am Left wrist pain December 25, 2024 9: 47am Major depression December 25, 2024 9: 47am Type 2 diabetes mellitus with diabetic p olyneuropathy December 25, 2024 9:47am Type 2 diabetes mellitus with hyperglyce vasquez December 25, 2024 9:47am Additional Source Comments REASON FOR VISIT (unrecogniz ed section and content) ReasonCommentsPainHx TSA 05/22/24 JABReasonCommentsPost-opL TSA 05[place] [facility] [place]CommentsFollow-upH&P LTSA poss Rev 05/22/24 FTMCReasonCommentsDiabetes ReasonCommentsFollow-upLab resultsWellnessrefillallergy shotPanic Attacks6 monthUpdateradial vein is warm to the touch, and tinglyTBH - HIGH BP, HEADACHES, HIGH BS (unrecognized sect ion and content) No Status [...] ized section and content) DATE CREATED AUTHOR 06/26/2022 [facility] DATE CREATED AUTHOR AUTHOR'S ORGANIZ ATION 07/13/2022 [facility] DATE CREATED AUTHOR AUTHOR'S ORGANIZ ATION 08/30/2023 [facility] DATE CREATED AUTHOR AUTHOR'S ORGANIZ ATION 05/02/2024 [facility] DATE CREATED AUTHOR AUTHOR'S ORGANIZ ATION 05/03/2024 [facility] DATE CREATED AUTHOR AUTHOR'S ORGANIZ ATION 05/24/2024 [facility] DATE CREATED AUTHOR AUTHOR'S ORGANIZ ATION 2024 [facility] DATE CREATED AUTHOR AUTHOR'S ORGANIZ ATION 05/28/2024 [facility] DATE CREATED AUTHOR AUTHOR'S ORGANIZ ATION 09/26/2024 [facility] DATE CREATED AUTHOR AUTHOR'S ORGANIZ ATION 11/19/2024 [facility] DATE CREATED AUTHOR AUTHOR'S ORGANIZ ATION 12/10/2024 [facility] DATE CREATED AUTHOR AUTHOR'S ORGANIZ ATION 01/13/2025 [facility] EPIC Patient Care team informatio n (unrecognized section and content) Team Status: Active Member Role Status Dates Max Tucker DO Primary Care Provider Active Team Status: Inactive Member Role Status Dates Max Tucker DO Primary Care Provider Active Start: October 02, 2024 End: October 02terrie Tucker Attending ProviderActiveStart: October 02, 2024 End: October 02, 2024 Team Status: Active Member Role Status Dates Max Tucker DO Primary Care Provider Active Start: October 28, 2024 Max Tucker DOAttending ProviderActiveStart: October 28, 2024 Team Status: Inactive Member Role Status Dates Max Tucker DO Primary Care Provider Active Start: December 25, 2024 End: December 25terrie Tucker DOAttending ProviderActiveStart: December 25, 2024 End: December 25, 2024 Team Status: Active Member Role Status Dates Provider Conversion Attending Provider Active St art: April 25, 2023 Team Status: Active Member Role Status Dates Max Tucker DO Primary Care Provide r, Attending Provider Active Start: June 27, 2023 Team Status: Inactive Member Role Status Dates Max Tucker DO Primary Care Provide r, Attending Provider Active Start: July 07, 2023 End: July 07, 2023 Team Status: Inactive Member Role Status Dates Max Tucker DO Primary Care Provider Active Start: August 16, 2023 End: August 16, 2023MattCristina Chahal ProviderActiveStart: August 16, 2023 End: August 16, 2023 Team Status: Inactive Member Role Status Dates Max Tucker DO Primary Care Provide r, Attending Provider Active Start: September 13, 2023 End: September 13, 2023Team MemberRelationshipSpecialtyStart DateEnd Date Max Tcuker MD [address] [place] [address] PCP - GeneralInternal Medicine11/10/22Team MemberRelationshipSpecialtyStart Date End Date Max Tucker MD [address] [place] [address] PCP - GeneralInternal Medicine11/10/22Team MemberRelationshipSpecialtyStart Date End Date Max Tucker MD [address] [place] [facility] [address] PCP - GeneralInternal Medicine11/10/22Team MemberRelationshipSpecialtyStart Date End Date Max Tucker MD [address] [place] [facility] [address] PCP - GeneralInternal Medicine11/10/22Team MemberRelationshipSpecialtyStart Date End Date Max Tucker MD [address] [place] [facility] [address] PCP - GeneralInternal Medicine11/10/22Team MemberRelationshipSpecialtyStart Date End Date Max Tucker MD [address] [place] [facility] [address] PCP - GeneralInternal Medicine11/10/22Team MemberRelationshipSpecialtyStart Date End Date Max Tucker MD [address] [place] [facility] [address] PCP - GeneralInternal Medicine11/10/22Team MemberRelationshipSpecialtyStart Date End Date Max Tucker MD [address] [place] [facility] [address] PCP - GeneralInternal Medicine11/10/22 Team Status: Active Member Role Status Dates Max Tucker DO Primary Care Provide r, Attending Provider Active Start: July 05, 2024 Team Status: Inactive Member Role Status Dates Max Tucker DO Primary Care Provide r, Attending Provider Active Start: July 18, 2024 End: July 18, 2024Team MemberRelationshipSpecialtyStart DateEnd Date Max Tucker DO [address] [place] [facility] [address] PCP - GeneralInternal Medicine08/20/24Team MemberRelationshipSpecialtyStart Date End Date Max Tucker DO [address] [place] [facility] [address] PCP - GeneralInternal Medicine08/20/24Team MemberRelationshipSpecialtyStart Date End Date Max Tucker DO [address] [place] [facility] [address] PCP - GeneralInternal Medicine08/20/24Team MemberRelationshipSpecialtyStart Date End Date Max Tucker DO [address] [place] [facility] [address] PCP - GeneralInternal Medicine08/20/24Team MemberRelationshipSpecialtyStart Date End Date Max Tucker DO [address] [place] [facility] [address] PCP - GeneralInternal Medicine08/20/24 Team Status: Active Member Role Status Dates Max Tucker DO Primary Care Provider Active Start: July 05, 2024 Maite Null ProviderActiveStart: July 05, 2024 Team Status: Inactive Member Role Status Dates Max Tucker DO Primary Care Provider Active Start: July 18, 2024 End: July 18Maite Lopez ProviderActiveStart: July 18, 2024 End: July 18, 2024 Team Status: Inactive Member Role Status Dates Max Tucker DO Primary Care Provider Active Start: August 13, 2024 End: August 13enreynaldojulissa DO GarrettAttending ProviderActiveStart: August 13, 2024 End: August 13, 2024Team MemberRelationshipSpecialtyStart DateEnd Date Max Tucker DO PCP - GeneralInternal Medicine05/25/20 [facility] [address] [place] [address] Orthopedics09/30/24Team MemberRelationshipSpecialtyStart DateEnd Date Max Tucker DO [address] [place] [address] PCP - GeneralInternal Medicine08/20/24Team MemberRelationshipSpecialtyStart Date End Date Max Tucker DO PCP - GeneralInternal Medicine05/25/20 [facility] [address] [place] [address] Orthopedics09/30/24 Goals (unrecognized section and content) Goals may be documented in a n alternate section Source Comments (unrecognize d section and content) In the event this informatio n is protected by the Federal Confidentiality of Alcohol and Drug Abuse Patient Records regulations: The Federal rules restrict any use of the information to criminally investigate or prosecute any alcohol or drug abuse patient.[facility] HospitalIn the event this information is protected by the Federal Confidentiality of Alcohol and Drug Abuse Patient Records regulations: The Federal rules restrict any use of the information to criminally investigate or prosecute any alcohol or drug abuse patient.[facility] FOR RECORDS PERTAINING TO PATIENTS WHO ARE [...] BE BASED ON THE PRIMARY CLINICAL RECORDS. [facility]. provides no warranty or guarantee of the accuracy or completeness of information in this document.
[2025-01-23 09:19] LABS: Hematocrit 42.6 % (42.0-54.0); Hemoglobin 12.9 g/dL (14.0-18.0); Immature Granulocytes Abs Auto 0.02 10^3/uL (0.00-0.03); Immature Granulocytes Pct Auto 0.3 % (0.0-0.5); Lymphocytes Absolute Auto 1.1 10^3/uL (1.2-3.8); Mean Corpuscular HGB Conc 30.3 g/dL (29.9-35.2); Mean Corpuscular Hemoglobin 23.4 pg (25.9-34.0); Mean Corpuscular Volume 77.3 fL (80.0-94.0); Platelet Count 346 10^3/uL (150-450); Red Blood Count 5.51 10^6/uL (4.70-6.10); White Blood Count 6.7 10^3/uL (4.0-11.0)
== END 2025-01-23 09:02 | disposition home or self-care (01) ==
PROVIDERS: PCP Internal Medicine; Visit Provider Internal Medicine
DX: E11.65 Type 2 diabetes mellitus with hyperglycemia (principal)
CPT/HCPCS: 36415; 83036; 85025

== ENCOUNTER 2025-01-27 20:51 | Outpatient (OUT) | payer OTHER, SELFPAY ==
--- OUTSIDE RECORDS SUMMARY | 2025-01-13 07:05 | XMS_ITS | Encounter Summary ---
Author Organization [facility] Address [address] [place] [address] Care Team Providers Care Wall Crane Operator Name Role Phone Max Ojeda Primary Care Provider [phone] Encounter Details DateTypeDepartmentCare Team (Latest Contact Info)Owhxqhgbpbm98/20/2025 8:05 AM EDTAncillary Procedure [facility] [address] [place] [phone] Social History Tobacco UseTypesPacks/DayYears UsedDateSmoking Tobacco: NeverSmokeless Tobacco: NeverAlcohol UseStandard Drinks/WeekCommentsYes0 (1 standard drink = 0.6 oz pure alcohol)caffiene dailyAUDIT-CAnswerDate RecordedQ1: How often do you have a drink containing alcohol?Monthly or less03/18/2024Q2: How many drinks containing alcohol do you have on a typical day when you are drinking?1 or Q3: How often do you have six or more drinks on one occasion?Never03/18/2024HQ-2 AnswerDate RecordedPatient Health Questionnaire-2 Ipnoi75505/19/2023Sex and Gender InformationValueDate RecordedSex Assigned at DsivzYutq92/17/2023 2:59 PM EDT Legal EouKzvy7806/08/2022 7:48 PM EDTGender XnigpkzcTyvq50/17/2023 2:59 PM EDT Sexual OrientationNot on filedocumented as of this encounter Plan of Treatment Not on file documented as of this encounter Procedures Procedure NamePriorityDate/TimeAssociated DiagnosisCommentsXR WRIST 3+ VIEWS FTEWSnnnquy16/20/2025 8:03 AM EDT Left wrist pain documented in this encounter Results * XR wrist 3+ views left (01/13/2025 8:03 AM EDT)Anatomical RegionLaterality ModalityUpper Extremities, WristLeftRadiographic ImagingSpecimen (Source) Anatomical Location / LateralityCollection Method / VolumeCollection Time Received Time Narrative 01/15/2025 5:58 PM EDT Imaging Result: 3 views of the left wrist, PA/lateral/oblique, taken today and saved to the permanent medical record. ??No acute osseous abnormalities. ??No slip degenerative changes. ??Ulnar positive variance. Authorizing ProviderResult TypeResult StatusZen Tavera DOIMG XR PROCEDURES Final Result documented in this encounter Visit Diagnoses Not on filedocumented in this encounter Care Teams Team MemberRelationshipSpecialtyStart DateEnd Date Max Ojeda, [address] [place] [phone] PCP - GeneralInternal Medicine08/20/24documented as of this encounter
--- OUTSIDE RECORDS SUMMARY | 2025-01-13 08:15 | XMS_ITS | Encounter Summary ---
Author Organization [facility] Address [address] [place] [address] Care Team Providers Care Solar Development Engineer Name Role Phone Rusty Max Pugh DO Primary Care Provider [phone] Reason for Visit * ReasonCommentsPain Encounter Details DateTypeDepartmentCare Team (Latest Contact Info)Zgbkanotgmw26/20/2025 9:15 AM EDTOffice Visit [facility] [address] [place] [phone] Zen Tavera DO [address] [facility] [place] [address] Left wrist pain (Primary Dx) Social History Tobacco UseTypesPacks/DayYears UsedDateSmoking Tobacco: NeverSmokeless Tobacco: Never Tobacco Cessation:Counseling Given: Not Answered Alcohol UseStandard Drinks/WeekCommentsYes0 (1 standard drink = 0.6 oz pure alcohol)caffiene dailyAUDIT-CAnswerDate RecordedQ1: How often do you have a drink containing alcohol?Monthly or less03/18/2024Q2: How many drinks containing alcohol do you have on a typical day when you are drinking?1 or Q3: How often do you have six or more drinks on one occasion?Never03/18/2024HQ-2 AnswerDate RecordedPatient Health Questionnaire-2 Iuqrb71905/19/2023Sex and Gender InformationValueDate RecordedSex Assigned at GcgkwWhii48/17/2023 2:59 PM EDT Legal RdlDmiv0806/08/2022 7:48 PM EDTGender QxjdbzhaNoxz25/17/2023 2:59 PM EDT Sexual OrientationNot on filedocumented as of this encounter Progress Notes * Zen Sanchez Liang, DO - 01/13/2025 9:15 AM EDT Images from the original note were not included. @SHAZIA@ Alex Vasquez is a 54 y.o. male who presents for Pain of the Left Wrist HPI: History of Present Illness The patient is a 54-year-old male who presents for a new problem with his left wrist. He is accompanied by his . He has been experiencing persistent issues with his left wrist, which have progressively worsened since his initial shoulder surgery. He reports that his thumb tends to lock up during certain activities and experiences a sharp, needle-like pain when extending his thumb. He also notes inflammation in the area. He has been using a thumb spica brace during physical activities such as yard work, but this has resulted in stiffness. He has also attempted to manage the pain with Voltaren. He expressesreluctance towards receiving an injection due to a needle phobia and previous vasovagal reaction. He has undergone 12 sessions of physical therapy, where he received ultrasound treatment, which provided some relief. SUBJECTIVE: MEDICATIONS: Current Outpatient Medications Medication Instructions acetaminophen (TYLENOL) 1,000 mg, 2 times daily ALPRAZolam (XANAX) 0.25 mg, Every 8 hours PRN atorvastatin (LIPITOR) 80 mg, Nightly buPROPion SR (Wellbutrin SR) 150 MG 12 hr tablet TAKE 1 TABLET BY MOUTH ONCE EVERY MORNING CeleBREX 200 mg citalopram (CELEXA) 40 mg, Daily [employer] Stool Softener 100 MG capsule etodolac (LODINE) 500 mg, 2 times daily fluorouracil (Efudex) 5 % cream Twice daily FREESTYLE LITE test strip USE DIRECTED glimepiride (Amaryl) 1 MG tablet TAKE 1 TABLET BY MOUTH EVERY MORNING WITH BREAKFAST ibuprofen 600 mg, Daily PRN Janumet 50-1000 MG tablet 1 tablet, 2 times daily with meals Jardiance 10 mg, Oral, Daily omeprazole (PriLOSEC) [address] capsule triamcinolone (Kenalog) 0.1 % ointment ALLERGIES: Allergies[1] SURGICAL HISTORY: Surgical History[2] FAMILY HISTORY: Family History[3] SOCIAL HISTORY: Social History[4] Depression: Not at risk (03/18/2024) PHQ-2 PHQ-2 Score: 0 REVIEW OF SYMPTOMS: Review of Systems The review of systems, history and current medications list are all reviewed today. OBJECTIVE: Visit Vitals Smoking Status Never Physical Exam Alert and oriented, no acute distress. Mood and affect are appropriate. Ambulating independently. Gait is nonantalgic. Left hand and wrist: Skin is warm, dry, intact. No swelling, no erythema. Full flexion, extension, pronation, supination. Good inventory coordinator strength. Tender over the first dorsal compartment and radial styloid. Positive Paula's. No triggering of any fingers. Makes an okay sign, crosses the fingers. Sensation intact over all digits. Hand is well-perfused. Right hand and wrist: The skin is warm, dry and intact. There is no swelling, no erythema, no ecchymosis. No atrophy of the thenar/hypothenar eminences and first dorsal webspace. No tenderness to palpation. The patient has full range of motion of all of the digits. No pain with flexion and extension of the wrist. The patient is able to make an OK sign, cross the fingers, and extend the thumb against resistance. No intrinsic hand muscle weakness. There is brisk capillary refill and a palpable radial pulse. Ortho Exam Results 3 views of the left wrist, PA/lateral/oblique, taken today and saved to the permanent medical record. No acute osseous abnormalities. No slip degenerative changes. Ulnar positive variance. ASSESSMENT AND PLAN: I reviewed the history, physical exam, diagnostic studies, and diagnosis with the patient. Assessment & Plan 1. De Quervain's tenosynovitis, left wrist Information from [facility] about the patient's condition was provided. He has previously tried therapy, bracing, and topical medications like Voltaren. A new left thumb spica brace was recommended for use during physical activities. The potential benefits of dry needling and the Dolphin microcurrent neurostimulator were discussed. He declined an injection due to past adverse reactions. If symptoms persist, surgical intervention may be considered. T giselaically this will be performed under local anesthetic, however, he would likely require sedation due to his aversion to needles. He was advised to continue using his current brace or try a new one if it offers better support. The patient was informed that if he changes his mind about the injection, it can be administered at a later date. Irvin has had continued followed up with Dr. Clifford regarding his left shoulder. I reviewed the last progress note from 11/18/2024 in which a conversion from anatomic to a reverse total shoulder arthroplasty was recommended. I recommended that he continue under the care of Dr. Clifford for his shoulder. Follow up prn. A total of 30 to 39 minutes was spent on this patient encounter which included chart review, check in, nurse triage, history taking, physical examination, diagnostic study review, patient counseling and discussion, entering information into the patient's medical record, and coordinating patient care. Diagnoses and all orders for this visit: Left wrist pain - XR wrist 3+ views left Zen Tavera D.O. Attestation This note was created using voice recognition through [employer] artificial intelligence. [1] No Known Allergies [2] Past Surgical History: Procedure Laterality Date ANTERIOR CERVICAL DISCECTOMY W/ FUSION ANTERIOR CRUCIATE LIGAMENT REPAIR Left APPENDECTOMY CHOLECYSTECTOMY HERNIA REPAIR KNEE SURGERY Left x3 NECK SURGERY ACD/ACF SHOULDER ARTHROSCOPY Left 04/07/2023 JAB TOTAL SHOULDER ARTHROPLASTY Left 05/22/2024 w/JAB [3] Family History Problem Relation Name Age of Onset Stroke Mother Ivana Vasquez Diabetes Mother Ivana Vasquez Cancer Mother Ivana Vasquez Heart disease Mother Ivana Vasquez Hypertension Mother Ivana Vasquez Mental illness Mother Ivana Vasquez Anxiety disorder Mother Ivana Vasquez Depression Mother Ivana Vasquez Migraines Mother Ivana Vasquez Restless legs syndrome Mother Ivana Vasquez Heart disease Father Alex Vasquez Diabetes Father Alex Vasquez Cancer Father Alex Vasquez Stroke Father Alex Vasquez Hypertension Father Alex Vasquez No Known Problems Maternal Grandmother No Known Problems Maternal Grandfather No Known Problems Paternal Grandmother No Known Problems Paternal Grandfather [4] Social History Tobacco Use Smoking status: Never Smokeless tobacco: Never Vaping Use Vaping status: Never Used Substance Use Topics Alcohol use: Yes Comment: caffiene daily Drug use: Never documented in this encounter Plan of Treatment Not on file documented as of this encounter Procedures Procedure NamePriorityDate/TimeAssociated DiagnosisCommentsXR WRIST 3+ VIEWS GYHVFuldwjf83/20/2025 8:03 AM EDT Left wrist pain documented [...] positive variance. Authorizing ProviderResult TypeResult StatusZen Tavera DOI XR PROCEDURES Final Result documented in this encounter Visit Diagnoses Diagnosis Left wrist pain- Primary Pain in joint, forearm documented in this encounter Care Teams Team MemberRelationshipSpecialtyStart DateEnd Date Max Ojeda, [address] [place] [phone] PCP - GeneralInternal Medicine08/20/24documented as of this encounter
--- OUTSIDE RECORDS SUMMARY | 2025-01-27 11:15 | XMS_ITS | Encounter Summary ---
Author Organization [facility] Address [facility] [place] [address] Care Team Providers Care Legal Office Administrator Name Role Phone Max Ojeda DO Primary Care Provider [phone] [facility] Unavailable Source Comments In the event this information is protected by the Federal Confidentiality of Alcohol and Drug AbusePatient Records regulations: The Federal rules restrict any use of the information to criminally investigate or prosecute any alcohol or drug abuse patient.[facility] Reason for Visit * ReasonCommentsPain Encounter Details DateTypeDepartmentCare Team (Latest Contact Info)Yhkhenoaujp36/03/2025 11:15 AM ESTOffice Visit Orthopaedics [address] [phone] Palmer Clifford MD [address] [place] [address] S/P shoulder replacement, left (Primary Dx); Loose orthopedic implant, subsequent encounter Social History Tobacco UseTypesPacks/DayYears UsedDateSmoking Tobacco: NeverSmokeless Tobacco: FormerArea Deprivation IndexAnswerDate RecordedNational Score (1-100), lower number is lower ovpn6260/04/2025State Score (1-10), lower number is lower risk4 10/28/2024Data from: https://www.neighborhoodatlas.[facility]/. Last address used for [address]/28/2024Sex and Gender InformationValueDate RecordedSex Assigned at NtcnkQamg79/05/2021 8:34 PM EDT Legal UlePysg18/02/2012 8:45 AM ESTGender LctsqqzsQbww08/05/2021 8:34 PM EDT Sexual HygouxhugcvXcxxstfw81/05/2021 8:34 PM EDTdocumented as of this encounter Progress Notes * Palmer Clifford MD - 01/27/2025 12:14 PM EST [facility] NOTE Department of Orthopaedics Palmer Clifford MD [facility] NAME: Alex Vasquez JR CLINIC NO.: [id number] DATE: 01/27/2025 Recording using [employer] software for draft documentation of the visit was discussed with the patient/authorized operations support representative; all questions welcomed and answered. Patient/authorized operations support representative agreed to proceed Interval Hx: Patient presents with: Left Shoulder - Pain Alex Vasquez JR is back for evaluation of his left shoulder. Our last visit was on 11/18/2024 with Palmer Clifford and we proceeded with aspiration. This yielded 2 ccs of bloody fluid with 817 TNCs,87% PMNs, no crystals, and no growth on cultures for 14 days. His inflammatory markers are within normal limits. He is here for further discussion on surgical options for his implant loosening and possible subscapularis tear. cielo Vasquez is a 54-year-old male with a history of diabetes, presenting for follow-up on left shoulder pain and limited range of motion following a shoulder replacement in March. Left Shoulder Pain and Limited ROM: - Underwent left shoulder replacement in March. - Reports pain and limited ROM in the left shoulder. - Able to raise the arm overhead when lying down. - Recent aspiration showed no definitive infection. - Imaging revealed a loose glenoid component with fluid behind it. - Possible rotator cuff tear suspected. - Discussed potential revision surgery to address the loose implant and improve function. Diabetes: - Recent A1c test ordered by PCP; results pending. - Believes A1c is <8. Focused Musculoskeletal/Neurologic exam: Left Shoulder Atrophy/asymmetry No Scapular dyskinesia No AC tenderness No ROM (Passive/Active): FE (degree) 45/80 ER (degree) 30/30 ER Lag (degree) 20 IR (degree) Sacrum Strength (1-5) ABD in plane of scapula 3/5 ER 3/5 IR 3/5 Provocative tests: Job???s test Positive Neer and Guy test Deferred Belly press test Positive O???Jose???s test Speed's test Hornblower's sign Negative Cross Body Adduction Apprehension Sulcus Load and Shift Nerve deficit (motor/sensory) Radial n. Negative Median n. Negative Ulnar n. Negative Axillary n. Negative Vascular Distal perfusion normal Contra-lateral shoulder: within normal limits RADIOGRAPHIC STUDIES: All relevant imaging studies have been reviewed and interpreted by myself anddiscussed with the patient. CT arthogram images shows prior TSA with glenoid component displacement and contrast extravasation behind the implant in both the coronal and axillary planes. No periprosthetic fracture. No major glenoid bone loss. Humerus without loosening. No active dislocation or subluxation of the humerus on imaging. ASSESSMENT: Encounter Diagnosis ICD-10-CM 1. S/P shoulder replacement, left Z96.612 2. Loose orthopedic implant, subsequent encounter T84.039D PLAN: The nature of the problem and treatment options available were discussed in detail. 1. S/P shoulder replacement, left (Z96.612) 2. Loose orthopedic implant, subsequent encounter (T84.039D) - Left shoulder arthroplasty performed March/April of this year; glenoid component now loose with possible underlying infection. - Aspiration results do not show definitive infection, but underlying infection cannot be ruled out. - Plan for revision of left anatomic to reverse total shoulder arthroplasty, removal of loose implant, intraoperative cultures and frozen section, and application of reverse total shoulder arthroplasty. - Discussed risks and benefits of surgery, including potential for infection, dislocation, and loosening of the implant after revision surgery. - Discussed post-operative antibiotic regimen based on culture results: 2 weeks of oral antibioticsif cultures are negative, longer duration if cultures are positive. - Patient educated on post-operative care, including use of sling and gentle arm movements to reduce risk of dislocation. - Patient consented to surgery and participation in multi-center study on revision surgeries. - [facility] to [facility] with [facility] hospital stay. - Follow-up appointments to be scheduled at 2 weeks, 6 weeks, 3 months, 1 year, 2 years, 5 years, and 10 years post-surgery. Palmer Clifford M.D. M.M.Sc. Shoulder and Elbow Surgeon Orthopaedic Surgery Department [place], [place] [address] Tell: [phone] Appt:[phone] documented in this encounter Plan of Treatment Not on file documented as of this encounter Visit Diagnoses Diagnosis S/P shoulder replacement, left- Primary Loose orthopedic implant, subsequent encounter documented in this encounter Care Teams Team MemberRelationshipSpecialtyStart DateEnd Date Max Ojeda DO PCP - GeneralInternal Medicine05/25/20 [facility] [address] [place] [address] Orthopedics09/30/24documented as of this encounter
--- OUTSIDE RECORDS SUMMARY | 2025-01-27 20:55 | XMS_ITS | Clinical Summary ---
Author Organization [facility] Healthcare Address [address] [place] [address] Care Team Providers Care Service Promoter Salesperson Name Role Phone Max Ojeda Primary Care Provider Allergies No known active allergies Medications MedicationSigDispense QuantityRefillsLast FilledStart DateEnd DateStatus ALPRAZolam (Xanax) 0.25 MG tablet Take 0.25 mg by mouth every 8 (eight) hours if needed for oxmumkv6306/21/2022 Active atorvastatin (Lipitor) 80 MG tablet Take 80 mg by mouth at ddfxehu0310/14/2022ctive omeprazole (PriLOSEC) [address] capsule 10/14/2022ctive [...] TAKE 1 TABLET BY MOUTH ONCE EVERY ULVNQKW54/07/2025Active glimepiride (Amaryl) 1 MG tablet TAKE 1 TABLET BY MOUTH EVERY MORNING WITH DQPLAIGXC91/07/2025Active FREESTYLE LITE test strip USE VHNKYMIS19/24/2025Active empagliflozin (Jardiance) 10 MG Indications:Type 2 diabetes mellitus without complication, without long-term current use of insulin (HCC)TAKE 1 TABLET (10 MG) BY MOUTH DAILY. 30 tablet 5Active Additional Information Patient taking differently:10 mg Oral Daily,(No times of day reported), Reported on 01/13/2025 fluorouracil (Efudex) 5 % cream Twice daily5Active Active Problems ProblemNoted DateDiagnosed DateTubular adenoma of colon12/18/2023Hyperlipidemia type II12/18/2023GERD with qrfeqclbgrc95/23/2024GAD (generalized anxiety disorder)12/18/2023Type 2 diabetes mellitus without complication, without long- term current use of ctvsbzd2411/07/2023 Assessment & Plan (06/16/2024 4:59 PM EDT): [...] for his shoulder surgery as well. Peyronie's ogijbry9908/03/2020D (erectile dysfunction) of organic origin 08/03/2020 Encounters DateTypeDepartmentCare ScqfUrhdbtpdkze82/20/2025 9:15 AM EDTOffice Visit [facility] [address] [facility] [place] [address] Zen Tavera DO Left wrist pain (Primary Dx)01/13/2025 8:05 AM EDTAncillary Procedure [facility] [address] [place] [address] 01/13/20254624Ywjrrh18/13/6746Vjbkue53/11/2025 10:30 AM EDTOffice Visit [facility] [address] [place] [address] Zen Tavera DO Status post total shoulder replacement, left (Primary Dx)11/04/2024amboo flowsheet [facility] [address] [place] [address] Zen Tavera DO 11/04/2024Travelfrom Last 3 Months Immunizations [...] on one occasion?Never03/18/2024HQ-2 AnswerDate RecordedPatient Health Questionnaire-2 Mgsye47105/19/2023Sex and Gender InformationValueDate RecordedSex Assigned at JarqhGytk08/17/2023 2:59 PM EDT Legal GzvZjij9606/08/2022 7:48 PM EDTGender LhdigvkcTrxl08/17/2023 2:59 PM EDT Sexual OrientationNot on file Last Filed Vital Signs Vital SignReadingTime TakenCommentsBlood Hhknvbrg456/8403 9:41 AM EDT Ckvjc120206/14/2024 9:41 AM YOXQixesytkgte14.7 ??C (98.1 ??F)06/14/2024 9:41 AM EDTRespiratory Rate--Oxygen Wlqckdshrm13%06/14/2024 9:41 AM EDTInhaled Oxygen Concentration--Qunzdg32.4 kg (186 lb)11/04/2024 10:21 AM JKVVwtkjo784.3 cm (5' 9 )11/04/2024 10:21 AM EDTBody Mass Index27.47011/04/2024 10:21 AM EDT Plan of Treatment Not on file Procedures Procedure NamePriorityDate/TimeAssociated DiagnosisCommentsXR WRIST 3+ VIEWS FLUTXhdawsj68/20/2025 8:03 AM EDT Left wrist pain from [...] MemberRelationshipSpecialtyStart DateEnd Date Max Ojeda, [address] [facility] [place] [address] PCP - GeneralInternal Medicine08/20/24
--- OUTSIDE RECORDS SUMMARY | 2025-01-27 20:55 | XMS_ITS | CCD ---
Author Organization [facility] Care Team Providers Care Pit Steward Name Role Phone Max Tucker Unavailable GARRETT, [...] Physician DO Max Tucker Primary Care Provider [phone] MD Rajan Moreland Attending Provider Rajan Moreland Attending Unavailable Rajan Moreland Admitting [...] Consulting UnavailJoe Gonzalez Attending Unavailable Reynaldo Rdzson A Attending Unavailable Brown, Zen A Referring [...] Unavailable Max Tucker DO Primary Care Provider [phone] Max Tucker DO Attending Provider BROWN, ZEN A Attending Unavailable BROWN, ZEN A Referring Unavailable BROWN, ZEN A Referring Unavailable BROWN, ZEN A Attending Unavailable ROSE DICK Attending Unavailable BROWN, ZEN A Referring Unavailable BROWN, ZEN A Attending Unavailable BROWN, ZEN A Attending Unavailable BROWN, EZN A Referring Unavailable ROSI LITTLE Attending Unavailable [...] oral tablet (7 sources)Opioid AgonistStart: 05-22-2024 End: 19-98-0509Kaplthbd 5 mg-325 mg oral tablet See Instructions, 40 tab(s), Refill(s) 0, 1-2 tab(s) Oral q4hr, [facility]/pharmacy #[id number], 176, cm, 04/30/24 14:00:00 EST, Height/Length Dosing, 84.1, kg, 04/30/24 14:00:00 EST, Weight Dosing Start Date: 05/22/24 Status: Ordered Quantity: 40.0 Unit: tab(s) Repeat number: 1Start: 64-19-7284Fwbmorom 5 mg-325 mg oral tablet See Instructions, 40 tab(s), Refill(s) 0, 1-2 tab(s) Oral q4hr, [facility]/pharmacy #[id number], 176.7, cm, 03/23/23 9:11:00 EST, Height/Length Dosing, 83.7, kg, 03/23/23 9:11:00 EST, Weight Dosing Start Date: 04/07/23 Status: OrderedALPRAZolam 0.25 mg oral tablet (20 sources)BenzodiazepineStart: 04-16-2019 End: 84-19-7793qyst 1 tablet by mouth every eight hours as needed for anxiety ALPRAZolam (Xanax) 0.25 MG tablet Take 0.25 mg by mouth every 8 (eight) hours if needed for zzosrgs7406/21/2022 ActiveStart: 04-16-2019 End: 27-86-6948psvr 1 tablet by mouth once daily as needed for anxietyAlprazolam 0.25 mg tablet Active 0.25 MG PO Daily as needed for anxiety December 03, 2024 7:59pm Complies with drug therapyatorvastatin 80 mg oral tablet (20 sources)HMG-CoA Reductase InhibitorStart: 09-11-2023 End: 89-20-1973kxrk 1 tablet by mouth once daily in the eveningAtorvastatin 80 mg tablet Active 0 .ROUTE .COMPLEX June 09, 2024 10:47am TAKE 1 TABLET BY MOUTH EVERY EVENING Complies with drug therapyStart: 03-19-2019 End: 99-54-6358zdkr 1 tablet by mouth at bedtimeatorvastatin (Lipitor) 80 MG tablet Take 80 mg by mouth at bedtime 10/14/2022 Activetake 1 tablet by mouth every twenty-four hoursLipitor 10 MG 1 tablet Orally Once a day Activebacitracin zinc 0.4 unt/mg / hydrocortisone acetate 0.01 mg/mg / neomycin sulfate 0.0035 mg/mg / polymyxin b sulfate 10 unt/mg ophthalmic ointment (4 sources)Aminoglycoside Antibacterial, Polymyxin-class Antibacterial, CorticosteroidStart: 19-84-0210wplzbusd-yrzqcbthff-wuhfeulym-doxndzgfiixlkc (Cortisporin) 1 % ophthalmic ointment Apply to affected eye(s) 05/23/2024 Active Start: 64-68-2219wbffyrjknz/HC/neomycin/polymyxin B Opth Oint 1 madelyn, OPTH, TID, 3.5 gm, Refill(s) 0, [facility]/pharmacy #[id number], 177.8, cm, 05/22/24 17:57:00 EST, Height/Length Dosing, 85.4, kg, 05/22/24 17:57:00 EST, WeightDosing Start Date: 05/23/24 Status: Ordered Quantity: 3.5 Unit: g Repeat number: 1Start: 05-23-2024 bacitracin/HC/neomycin/polymyxin B Opth Oint 1 madelyn, OPTH, TID, 3.5 gm, Refill(s) 0, [facility]/pharmacy #[id number], 177.8, cm, 05/22/24 17:57:00 EST, Height/Length Dosing, 85.4, kg, 05/22/24 17:57:00 EST, WeightDosing Start Date: 05/23/24 Status: OrderedBlood-Glucose Meter (Onetouch Ultra2 Meter) [facility] [place]5 sources)Start: 96-80-7311Hrefm-Glucose Meter (Onetouch Ultra2 Meter) [facility] [facility] [place] Active 0 .ROUTE .MEDSUPPLY July 20, 2023 12:00am Use to test home BS qd12 hr buPROPion hydrochloride 150 mg extended release oral tablet (17 sources)AminoketoneStart: 44-83-2593uear 1 tablet by mouth once daily in the morningbuPROPion SR (Wellbutrin SR) 150 MG 12 hr tablet TAKE 1 TABLET BY MOUTH ONCE EVERY MORNING 08/31/2024 Activecelecoxib 200 mg oral capsule (20 sources)Nonsteroidal Anti-inflammatory DrugStart: 45-67-3283HzjyHZVC 200 MG capsule Take 200 mg by mouth 05/22/2024 Activecitalopram 40 mg oral tablet (20 sources)Serotonin Reuptake InhibitorStart: 73-58-5252wwvf 1 tablet by mouth once dailyCitalopram 40 mg tablet Active 0 .ROUTE .COMPLEX September 17, 2024 6:51am TAKE 1 TABLET BY MOUTH EVERY DAY Complies with drug therapyStart: 08-13-2024 End: 92-91-7093Pgwjuqgwoo 40 mg tablet Discontinued 20 MG PO Daily 02 14August 13, 2024 11:49am September 17, 2024 6:52amStart: 09-29-2023 End: 45-21-1121ejpl 1 tablet by mouth once dailyCitalopram 40 mg tablet Discontinued 0 .ROUTE .COMPLEX March 22, 2024 8:15am August 13, 2024 11:50am TAKE 1 TABLET BY MOUTH EVERY DAYStart: 09-13-2023 End: 51-42-5411wlyp 1 tablet by mouth once dailycitalopram (CeleXA) 40 MG tablet Take 40 mg by mouth Daily 09/29/2023 ActiveStart: 24-43-9886evpuoasjgw (CELEXA) 20 mg tablet 07/31/2019 Activedocusate sodium 100 mg oral capsule (20 sources)Start: 03-70-6917TYT Stool Softener 100 MG capsule 05/22/2024 Active doxycycline hyclate 100 mg oral capsule (8 sources)Tetracycline-class DrugStart: 67-06-3976blmd 1 capsule by mouth twice dailyDoxycycline Hyclate 100 MG 1 capsule Orally twice daily for 7 days Jun, Activeempagliflozin 25 mg oral tablet (20 sources)Sodium-Glucose Cotransporter 2 InhibitorStart: 68-51-9018atzq 1 tablet by mouth once daily in the morningEmpagliflozin 25 mg tablet Active 25 MG PO Every morning 30 October 02, 2024 10:37am Complies withdrug therapyStart: 06-14-2024 End: 19-91-0499riqt 1 tablet by mouth once dailyempagliflozin (Jardiance) 10 MG Indications: Type 2 diabetes mellitus without complication, withoutlong-term current use of insulin (HCC) TAKE 1 TABLET (10 MG) BY MOUTH DAILY. 30 tablet 3 5Activefluorouracil 50 mg/ml topical cream (3 sources)Nucleoside Metabolic InhibitorStart: 18-37-1765qvnsxbmfxqrk (Efudex) 5 % cream Twice daily 12/25/2024 ActiveFREESTYLE LITE METER monitoring kit (2 sources)Start: 34-08-0891IESTAQGAR LITE METER monitoring kit USE TO TEST HOME BLOOD SUGAR ONCE EVERY DAY 04/20/2020 Activegabapentin 300 mg oral capsule (1 source)Anti-epileptic AgentStart: 05-22-2024 End: 30-96-8221ieeo 1 capsule by mouth three times dailygabapentin 300 mg Cap 300 mg = 1 cap(s), Oral, TID, X 14 day(s), # 42 cap(s), Refills(s) 0, Pharmacy: [facility]/pharmacy #[id number], 176, cm, 04/30/24 14:00:00 EST, Height/Length Dosing, 84.1, kg, 04/30/24 14:00:00 EST, Weight Dosing Start Date: 05/22/24 Stop Date: 06/05/24 Status: Orderedglimepiride 2 mg oral tablet (20 sources)SulfonylureaStart: 43-39-4049bgcf 1 tablet by mouth once daily at breakfastGlimepiride 2 mg tablet Active 2 MG PO Every morning October 02, 2024 10:37am administer with breakfast Complies with drug therapyStart: 08-13-2024 End: 84-60-2566eeja 1 tablet by mouth once daily in the morningglimepiride (Amaryl) 1 MG tablet TAKE 1 TABLET BY MOUTH EVERY MORNING WITH BREAKFAST 08/31/2024 ActiveStart: 09-15-2023 End: 99-98-8737suss 1 tablet by mouth once dailyGlimepiride 4 mg tablet Discontinued 4 MG PO Daily 30 September 15, 2023 5:08pm July 18, 2024 10:48am Start: 07-06-2023 End: 48-63-6370mhpb 3 mg by mouth once dailyGlimepiride 2 mg tablet Discontinued 3 MG PO Daily July 19, 2023 6:50am September 15, 2023 5:09pmStart: 07-06-2023 End: 79-97-6418bekl 3 mg by mouth once dailyGlimepiride Active 3 MG PO Daily 45 July 19, 2023 6:50amStart: 04-20-2020 End: 57-09-9280jymr 1 tablet by mouth once daily at breakfastGlimepiride 2 mg tablet Active 2 MG PO Every morning October 02, 2024 10:37am administer with breakfast Complies with drug therapyStart: 00-11-3949fsbh 1.5 mg by mouth once dailyglimepiride 1 mg Tab 1.5 mg = 1.5 tab(s), Oral, Daily, Refills(s) 0, High blood sugar Start Date: 07/31/19 Status: Ordered Repeat number: 1take 1.5 tablets by mouth every twenty-four hoursGlimepiride 2 MG 1.5 tablet with breakfast or the first main meal of the day Orally Once a day Activehydrocortisone acetate 25 mg rectal suppository (20 sources)CorticosteroidStart: 93-29-3780Mebvdsafbowspv Acetate 25 mg suppository Active 25 MG [place] Twice daily December 08, 2023 12:00am Complies with drug therapyStart: 07-06-2023 End: 01-93-5008Zhruqxhkzsgiku 2.5 % cream Discontinued 1 APPLIC TOPICAL Daily July 06, 2023 12:00am September 13, 2023 2:15pmHydrocortisone 2.5 % 1 application Externally Once a day ActiveHydrocortisone Acetate 25 MG 1 suppository Rectal Once a day ActiveHydrocortisone 2.5 % 1 application Externally Once a day ActiveHydrocortisone Acetate 25 mg suppository (1 source)Start: 67-71-3470Muvtvuphftjpvg Acetate 25 mg suppository Active 25 MG [place] Twice daily December 08, 2023 12:00amibuprofen 600 mg oral tablet (20 sources)Nonsteroidal Anti-inflammatory DrugStart: 78-76-5729eonm 1 tablet by mouth every six hours as needed for painibuprofen 600 mg Tab 600 mg = 1 tab(s), Oral, q6hr, PRN as needed for pain, with food or milk, # 50tab(s), Refills(s) 0, Pharmacy: [facility]/pharmacy #[id number], 176.7, cm, 03/23/23 9:11:00 EST, Height/Length D osing, 83.7, kg, 03/23/23 9:11:00 EST, Weight Dosing Start Date: 04/07/23 Status: Orderedtake 1 tablet by mouth every twenty-four hours as neededibuprofen 600 MG tablet Take 600 mg by mouth Daily as needed Activeketorolac tromethamine 10 mg oral tablet (1 source)Nonsteroidal Anti-inflammatory Drug, Cyclooxygenase InhibitorStart: 05-22-2024 End: 42-56-4572cbxr 1 tablet by mouth every eight hoursketorolac 10 mg Tab 10 mg = 1 tab(s), Oral, q8hr, X 3 day(s), # 9 tab(s), Refills(s) 0, Pharmacy: [facility] #[id number], 176, cm, 04/30/24 14:00:00 EST, Height/Length Dosing, 84.1, kg, 04/30/24 14:00:00EST, Weight Dosing Start Date: 05/22/24 Stop Date: 05/25/24 Status: OrderedmetFORMIN hydrochloride 1000 mg oral tablet (2 sources)BiguanideStart: 32-48-6423gmoBCWMQD (GLUCOPHAGE) 1,000 mg tablet 04/18/2020 Activeomeprazole 40 mg delayed release oral capsule (20 sources)Proton Pump InhibitorStart: 11-17-2023 End: 11-53-4077Uymojuukps 40 mg capsule,delayed release(DR/EC) Active 0 .ROUTE .COMPLEX August 08, 2024 1:32pm TAKE 1 CAPSULE ON EMPTY STOMACH FOLLOWED IN 30 MINUTES BY BKFST Complies with drug therapyStart: 26-74-1582ayxltaoplj (PriLOSEC) [address] capsule 10/14/2022 ActiveStart: 07-31-2019 End: 50-39-3481uszw 1 capsule by mouth once dailyOmeprazole 40 mg capsule,delayed release(DR/EC) Discontinued 40 MG PO Daily July 06, 2023 12:00am November 17, 2023 10:20amsildenafil 100 mg oral tablet (7 sources)Phosphodiesterase 5 InhibitorStart: 31-96-3484oyptudceuy (VIAGRA) 100 mg tablet Take 100 mg by mouth. 07/31/2019 ActiveSuzetrigine (Journavx) 50 MG tablet (6 sources)Start: 11-04-2024 End: 88-69-5714ssen 1 tablet by mouth every twelve hoursSuzetrigine [...] 30 tablet 11/04/2024 11/18/2024 ActiveStart: 09-26-2024 End: 20-02-3741nrld 1 tablet by mouth every twelve hoursSuzetrigine [...] 30 tablet 09/26/2024 10/10/2024 ActiveStart: 07-04-2024 End: 22-07-1096acir 1 tablet by mouth every twelve hoursSuzetrigine [...] oral tablet (6 sources)Opioid AgonistStart: 10-24-2023 End: 21-97-4765ofpl 1 tablet by mouth in the morningtraMADol (Ultram) 50 MG tablet Take 50 mg by mouth in the morning and 50 mg before bedtime. 10/24/2023 03/18/2024 Discontinued (Therapy completed)triamcinolone acetonide 0.001 mg/mg topical ointment (20 sources)CorticosteroidStart: 12-23-6780ozsdrlohlmxeu (Kenalog) 0.1 % ointment 05/09/2024 ActiveStart: 35-09-0442ytpwhthklaumw (Kenalog) 0.1 % ointment APPLY TO AFFECTED AREA ONCE A DAY NEEDED FOR ITCHING 05/09/2024 ActiveStart: 12-41-6718Jekmikynsmqlp Acetonide 0.1 % ointment Active 1 APPLIC TOPICAL Daily as needed for itching 80 30 March 05, 2024 1:00am Complies with drug therapyStart: 31-99-8051Qdzetyc-40 Nov, 60 mg Completed/Discontinued Medications MedicationDrug Class(es)DatesSig (Normalized)Sig (Original)[id number] 200 actuat albuterol 0.09 mg/actuat metered dose inhaler (20 sources)beta2-Adrenergic AgonistStart: 07-06-2023 End: 75-27-3555urcc 1 puff(s) by inhalation every four hours as neededAlbuterol Sulfate 90 mcg/actuation HFA aerosol inhaler Discontinued 2 PUFF INHALATION Every 4 hoursas needed July 06, 2023 12:00am September 13, 2023 2:14pmStart: 05-44-7694ewma 2 puff(s) by inhalation every four hours as neededStart: 24-61-8220ansf 2 puff(s) by inhalation every four hours as neededAlbuterol Sulfate HFA 108 (90 Base) MCG/ACT 2 puffs as needed Inhalation every 4 hrs for 30 days 2019 Not-Taking/PRNcephalexin 500 mg oral capsule (3 sources)Cephalosporin AntibacterialStart: 09-26-2024 End: 32-06-7551tvmj 4 capsules by mouth once at mealtimecephalexin (Keflex) 500 MG capsule Indications: Status post total shoulder replacement, left Take 4 capsules (2,000 mg) by mouth 1 time for 1 dose Take 30-60 mins before dental appointment with food 4 capsule 3 09/26/2024 09/26/2024 ExpiredStart: 05-22-2024 End: 60-07-3859udio 1 capsule by mouth every eight hoursKeflex [...] 60 mg oraltablet (14 sources)alpha-Adrenergic Agonist, Uncompetitive K-yjlfya-P-aspartate Receptor Antagonist, Sigma-1 AgonistStart: 81-41-3786Aganenw DM 60-15-400 MG 1/2 to 1 tablet Orally every 6-8 hours as needed for 8 days Apr, Not -Taking/PRNetodolac 500 mg oral tablet (20 sources)Nonsteroidal Anti-inflammatory DrugStart: 12-22-2024 End: 48-35-0374xctb 1 tablet by mouth twice dailyEtodolac 500 mg tablet Discontinued 0 .ROUTE .COMPLEX December 22, 2024 8:00am December 25, 2024 10:14am TAKE 1 TABLET BY MOUTH TWICE A DAY FOR 21 DAYSStart: 05-10-2024 End: 78-83-9703fiyd 1 tablet by mouth twice dailyEtodolac 500 mg tablet Discontinued 0 .ROUTE .COMPLEX May 10, 2024 2:12pm August 13, 2024 1 1:53am TAKE 1 TABLET BY MOUTH TWICE A DAYStart: 03-05-2024 End: 33-35-3990jamg 1 tablet by mouth in the morningetodolac (Lodine) 500 MG tablet Take 500 mg by mouth in the morning and 500 mg before bedtime. 03/05/2024 ActiveHumalog (1 source)Insulin AnalogStart: 05-23-2024 End: 05-71-8605UlerUDW Sliding Scale 0-10 Unit(s), Injection-Insulin, SubCutaneous, Start date 05/23/24 7:30:00 AM EST Start Date: 05/23/24 Stop Date: 05/23/24 Status: CompletedmetFORMIN hydrochloride 1000 mg / SITagliptin 50 mg oral tablet (20 sources)Biguanide, Dipeptidyl Peptidase 4 InhibitorStart: 08-16-2023 End: 90-39-6114qevg 1 tablet by mouth twice daily at mealtimeSitagliptin Phos- Metformin (Marumet) 50-1,000 mg tablet Discontinued 0 .ROUTE .COMPLEX 60 March 05, 2024 2:24pm August 14, 2024 1:14pm TAKE 1 TABLET BY MOUTH TWICE A DAY WITH MEALS FOR 30 DAYSStart: 01-15-4515ripj 1 tablet by mouth in the morning Janumet 50-1000 MG tablet Take 1 tablet by mouth in the morning and 1 tablet in the evening. Take with meals. 07/07/2022 ActiveStart: 07-31-2019 End: 29-33-4793ptra 1 tablet by mouth twice dailySitagliptin Phos-Metformin (Marumet) 50-1,000 mg tablet Discontinued 1 TAB PO Twice daily July 06, 2023 12:00am August 16, 2023 8:35amStart: 31-43-0340ukaa 50-1000 tablets by mouth once SITagliptin-metFORMIN (MARUMET) 50-1,000 mg per tablet Take by mouth. 07/31/2019 Activetake 1 tablet by mouth every twelve hoursJanumet 50-500 MG 1 tablet with meals Orally Twice a day ActivemethylPREDNISolone 4 mg oral tablet (14 sources)CorticosteroidStart: 47-11-0729Wwiajz 4 MG as directed Orally for 6 days Apr, Not-Taking/PRNoseltamivir 75 mg oral capsule (14 sources)Neuraminidase InhibitorStart: 63-36-0484ccbt 1 capsule by mouth every twelve hoursTamiflu 75 MG 1 capsule Orally Twice a day for 5 day(s) Apr, Not-Taking/PRN Problems Active Problems Problem ClassificationProblemDateDocumented DateEpisodic/ChronicAbdominal pain (15 sources)Acute abdominal pain; Translations: [Left lower quadrant pain] 20-49-9899AgjzumkoEzfkbyj disorders (20 sources)Acute stress disorder; Translations: [Acute stress reaction]Onset: 56-53-6927DpezhmmYjqvwmvhunug of device; implant or graft (4 sources)Complication associated with musculoskeletal implant; Translations: [Mechanical loosening of unspecified internal prosthetic joint, initial encounter]Onset: 543194-11-4459DskjffbuLqwntbwupt and other anemia (5 sources)Anemia; Translations: [Anemia, unspecified]51-17-5416DwrivfmrAawgngzr mellitus with complications (20 sources)Hyperglycemia due to type 2 diabetes mellitus; Translations: [Type 2 diabetes mellitus with hyperglycemia]Onset: 06-36-4176OssumnjIkzvfltr mellitus without complication (20 sources)Diabetes mellitus; Translations: [Type 2 diabetes mellitus well controlled]Onset: 062563-01-6767ZnvuullUohxxknvq of lipid metabolism (20 sources)Mixed hyperlipidemia; Translations: [Mixed hyperlipidemia]Onset: 15-06-8980MmbcuwhL Codes: Adverse effects of medical drugs (2 sources)Adverse effect of glucocorticoids and synthetic analogues, initial encounter; Translations: [ADVRS EFF GLUCOCORT SYN ANALOG INIT]Onset: 06-22-2022 EpisodicEsophageal disorders (20 sources)Gastro-esophageal reflux disease with esophagitis; Translations: [Gastroesophageal reflux disease with esophagitis without hemorrhage]Onset: 376072-52-4450LoeyhkyLsfqiotsj hypertension (15 sources)Essential hypertension; Translations: [Essential (primary) hypertension]ChronicGastrointestinal hemorrhage (5 sources)Rectal -39-0800CjlddpsmPcctxslw; including migraine (3 sources)Headache; including migraine; Translations: [HEADACHE UNSPECIFIED] Onset: 67-88-2217Picslctdrsh (14 sources)External hemorrhoids; Translations: [Residual hemorrhoidal skin tags]EpisodicHypertension with complications and secondary hypertension (1 source)Hypertensive urgency; Translations: [HYPERTENSIVE URGENCY]Onset: 99-18-8386FwgkcdlZxxtuvhuidhpu and screening for infectious disease (8 sources)Anti-nuclear factor positive; Translations: [Other specified abnormal immunological findings in serum]Onset: 954751-13-5200Trjnpvcd Inflammation; infection of eye (except that caused by tuberculosis or sexually transmitteddisease) (1 source)Blepharitis; Translations: [Unspecified blepharitis unspecified eye, unspecified eyelid]Onset: 99-00-2209HynyktxzSjtd disorders (7 sources)Major depressive disorder, single episode, unspecified; Translations: [Major depressive disorder]Onset: 894258-02-8678QedflopQtfpsodnndklnr (9 sources)Primary osteoarthritis, left shoulder; Translations: [Arthropathy, unspecified, shoulder region]21-81-2759OmbimqqHgcsi acquired deformities (14 sources)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; Translations: [Contracture, right ankle]ChronicOther aftercare (1 source)Other nursing home (current) drug therapy; Translations: [OTH GEAR TECHNICIAN CURRENT DRUG THERAPY]Onset: 51-87-3573XrntnvavBvonm bone disease and musculoskeletal deformities (3 sources)Idiopathic aseptic necrosis of left shoulder; Translations: [Aseptic necrosis of bone, other]Onset: 370285-23-3066UednbprChnfd circulatory disease (1 source)Elevated blood-pressure reading, without diagnosis of hypertension EpisodicOther connective tissue disease (12 sources)History of operative procedure on shoulder; Translations: [Presence of left artificial shoulder joint]78-89-1114OuyamrzRzqdb connective tissue disease (3 sources)History of reverse prosthetic total arthroplasty of left shoulder; Translations: [Presence of left artificial shoulder joint]25-83-2415MqxuhxtBjyzj connective tissue disease (2 sources)Presence of left artificial shoulder joint; Translations: [Shoulder joint replacement]Onset: 621928-60-3141OcliaqoQbpes connective tissue disease (4 sources)History of left shoulder arthroplasty; Translations: [Presence of left artificial shoulder joint]Onset: 717640-68-7530HpdhwgjBfjgd connective tissue disease (14 sources)Pain in limb; Translations: [Pain in right foot]EpisodicOther connective tissue disease (14 sources)Plantar fascial fibromatosis; Translations: [Plantar fascial fibromatosis]EpisodicOther connective tissue disease (2 sources)Shoulder girdle weakness; Translations: [Other symptoms and signs involving the musculoskeletal system]75-45-3599KzirhoudJuuot connective tissue disease (2 sources)Other symptoms and signs involving the musculoskeletal system; Translations: [Other symptoms involving nervous and musculoskeletal systems] 66-63-0214SkyhdlpcPqrzz lower respiratory disease (2 sources)Nodule of lung; Translations: [Solitary pulmonary nodule]Episodic Other male genital disorders (20 sources)Induratio penis plastica; Translations: [Induration penis plastica] Onset: 016326-30-3773HjwtibzTgnfz male genital disorders (14 sources)Impotence of organic origin; Translations: [Erectile dysfunction due to arterial insufficiency]ChronicOther male genital disorders (5 sources)Erectile dysfunction co-occurrent and due to arterial insufficiency 15-09-4004LqgthsgBvfra male genital disorders (20 sources)Secondary erectile dysfunction; Translations: [Male erectile dysfunction, unspecified]Onset: 594930-41-0516DkdmeboFpehv nervous system disorders (14 sources)Paresthesia; Translations: [Paresthesia of skin]EpisodicOther nervous system disorders (1 source)Drug-induced myopathy; Translations: [Drug-induced myopathy]Onset: 30-28-5259NpdsisdhRzitz non-traumatic joint disorders (7 sources)Pain in left shoulder; Translations: [Pain in joint, shoulder region] Onset: 72-09-4750YraybmesDgdoh non-traumatic joint disorders (5 sources)Shoulder pain; Translations: [Pain in unspecified shoulder]09-13-2023 EpisodicOther non-traumatic joint disorders (9 sources)Pain of left wrist; Translations: [Pain in left wrist]07-18-2024 EpisodicOther non-traumatic joint disorders (3 sources)Instability of left shoulder joint; Translations: [Other instability, left shoulder]Onset: 381977-18-4746RpplhtkwOfevo non-traumatic joint disorders (1 source)Other instability, left shoulder; Translations: [Instability of left shoulder joint]Onset: 76-58-9097UjmwsxtvSdedh nutritional; endocrine; and metabolic disorders (1 source)OverweightEpisodicOther nutritional; endocrine; and metabolic disorders (5 sources)Body mass index 25-29 - rcjbhcnvui40-96-2893QaosjgwpUgnip nutritional; endocrine; and metabolic disorders (4 sources)Intentional weight qesw38-30-3503PnlwpojdDrfns screening for suspected conditions (not mental disorders or infectious disease) (20 sources)Blood chemistry abnormal; Translations: [Other specified abnormal findings of blood chemistry]Onset: 10-40-4341KmaxdwfkYdfeefe on above:PSA: 1.12 - 02/2023, 1.09 - [...] unclassified (2 sources)History of operative procedure on rgpcbeas13-58-9283QrpzfuzbQjjdrjl and strains (2 sources)Strain of unspecified muscle(s) and tendon(s) at lower leg level, left leg, initial encounter; Translations: [Strain of muscle(s) and tendon(s) of the rotator cuff of left shoulder, initial encounter]EpisodicUnclassified (1 source)CONTACT W/AND (SUSP) EXPOS COVID-19; Translations: [CONTACT W/AND (SUSP) EXPOS COVID-19]Onset: 88-11-8995Grdemcuxkqsc (1 source)Left shoulder pain, unspecified vpfmofaams25-71-9356 Past or Other Problems Problem ClassificationProblemDateDocumented DateEpisodic/ChronicEsophageal disorders (13 sources)Esophageal disorders; Translations: [Gastroesophageal reflux disease with esophagitis without hemorrhage]Other and unspecified benign neoplasm (20 sources)Tubular adenoma of colon; Translations: [Benign neoplasm of colon, unspecified]Onset: 567899-16-3861TfgxzgptHowtl infection (14 sources)Disease caused by 2019-nCoV; Translations: [COVID-19] Results Test NameValueInterpretationReference RangeFacilityXR Wrist - left 3 [facility] [id number] Result: 3 views of the left wrist, PA/lateral/oblique, taken today and saved to the permanent medical record. No acute osseous abnormalities. No slip degenerative changes. Ulnar positive variance.[facility] - left 3 [facility] [id number] Study observation (narrative)[id number] Visit (ORTHMN) CHAVA VASQUEZ JR ([id number]) 1970 M Date Time Provider Department 11/18/24 9:45 AM BRIELLE KRAUS During your visit today, we recorded the following information about you: Brielle Kraus MD 11/18/2024 12:19 PM Signed [facility] NOTE Department of Orthopaedics Brielle Kraus MD [facility] NAME: Chava Vasquez JR CLINIC NO.: [id number] DATE: 11/18/2024 Interval Hx:Chava Vasquez JR is [...] 1. 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 S/P shoulder replacement, left [...] Shoulder and Elbow Surgeon Orthopaedic Surgery Department [place], [place] [address] Tell: [phone] Appt:[phone] Allergies As of Date: 11/18/2024 (No Known [...] Service: OFFICE/OUTPATIENT ESTABLISHED MOD MDM 30 MIN [44219] Additional E/M codes: VISIT CPLX INHERENT EANDM ASSOC WITH MED * Disposition: Return if symptoms worsen or fail to improve. Follow-up and Disposition History for Enc (more content not included)...Normal [facility] Health PrebleBacteria Fld Culton 23-87-6952Ykduhiuh identified Cx Nom (Body fld)CULTURE, BODY FLD: No growth 14 days GRAM STAIN: No organisms seen No Polymorphonuclear Leukocytes Gram stain from primary specimenNormalKettering Health PrebleComment on above:Performed By: #### 611-4 #### [facility] CLIA [id number] [address] [place] [address] [place] AMERICABasophils Auto (Bld) [#/Vol] Ordered By: Max Tucker on 82-90-2929Zrwxrhwnm (Bld) [#/Vol]0.04 10*3/uL<0.11 [facility]healthBasophils/100 WBC Auto (Bld)Ordered By: Max Tucker on 42-65-1689Fijnawoqk/100 WBC (Bld)0.5 %OhiohealthBlood manual differential comment interpretation narrativeOrdered By: Max Tucker on 80-39-1788Oifglr differential comment Rasheed (Bld) [Interp] AutoOhiohealthBody fluid crystal identification by light microscopyOrdered By: Brielle Kraus on 11-76-2121Mywphurx LM Nom (Body fld)None seenNone [facility] Memorial HospitalC-REACTIVE PROTEINon 10-28-2024 CRP [Mass/Vol]mg/dLNINF - 0.9 mg/dLFirelands Regional Medical Center South Campus W Auto Differential panel (Bld)on 63-56-4875Odmzzbjke (Bld) [#/Vol]0.04 10*3/uLNINFUniversity Hospitals Elyria Medical Center Basophils/100 WBC (Bld)0.5 %[facility] Medical CenterDifferential cell count method Nom (Bld)AutoCleveland ClinicEosinophils (Bld) [#/Vol]0.06 10*3/uLNINFUniversity Hospitals Elyria Medical CenterEosinophils/100 WBC (Bld)0.8 %[facility] Medical CenterErythrocyte distribution width (RBC) [Ratio]16.3 %High11.5 - 15.0 %[facility] Medical CenterHematocrit (Bld) [Volume fraction]40.8 %39.0 - 51.0 %[facility] Medical CenterHemoglobin (Bld) [Mass/Vol] 12.7 g/dLLow13.0 - 17.0 g/dLUniversity Hospitals Elyria Medical CenterImmature granulocytes (Bld) [#/Vol] 0.03 10*3/uLNINFUniversity Hospitals Elyria Medical CenterImmature granulocytes/100 WBC (Bld)0.4 % [facility] Medical CenterInterpretation and review of laboratory resultsAbnormalCleveland ClinicLymphocytes (Bld) [#/Vol]1.2 10*3/uLUniversity Hospitals Elyria Medical CenterLymphocytes/100 WBC (Bld)16.4 %[facility]. Mary HospitalH (RBC) [Entitic mass]24.4 pgLow26.0 - 34.[address] Mary HospitalHC (RBC) [Mass/Vol]31.1 g/dL30.5 - 36.0 g/dLUniversity Hospitals Elyria Medical Center MCV (RBC) [Entitic vol]78.3 fLLow80.0 - 100.0 fLCleveland ClinicMonocytes (Bld) [#/Vol]0.61 10*3/uLNINFStaten Island ClinicMonocytes/100 WBC (Bld)8.4 %[facility] Medical CenterNeutrophils (Bld) [#/Vol]5.36 10*3/uLUniversity Hospitals Elyria Medical CenterNeutrophils/100 WBC (Bld)73.5 %[facility] Medical CenterNucleated RBC (Bld) [#/Vol]NINFCOhio State East Hospital Nucleated RBC/100 WBC (Bld) [Ratio]0 %/100 WBCUniversity Hospitals Elyria Medical CenterPlatelet mean volume (Bld) [Entitic vol]8.8 fLLow9.0 - 12.7 fLCOhio State East HospitalPlatelets (Bld) [#/Vol]311 10*3/uLUniversity Hospitals Elyria Medical CenterRBC (Bld) [#/Vol]5.21 10*6/uL4.20 - 6.00 m/uL [facility]ly[facility] Medical CenterWBC (Bld) [#/Vol]7.3 10*3/uLCrystal Clinic Orthopedic Center Basophils (Bld) [#/Vol]0.04 10*3/uLNormal<0.11CClinton Memorial Hospital on above:Order Comment: Specimen Type: BLOOD SPECIMEN Ordering Facility: [facility] Address: [address] [place], [place] [address]Performed By: #### 4537-7, 55971-0 #### [facility] [place] [id number] [address] [place] [address] [place] OF AMERICABasophils/100 WBC (Bld)0.5 % NormalParkview Health Bryan Hospital on above:Order Comment: Specimen Type: BLOOD SPECIMEN Ordering Facility: [facility] Address: [address] [place], [place] [address]Performed By: #### 4537-7, 07823-8 #### [facility] [place] [id number] [address] [place] [address] [place] AMERICADifferential cell count method Nom (Bld)AutoNormalCClinton Memorial Hospital on above:Order Comment: Specimen Type: BLOOD SPECIMEN Ordering Facility: [facility] Address: [address] [place], [place] [address]Performed By: #### 4537-7, 62996-7 #### [facility] [place] [id number] [address] [place], [place] [address] [place] AMERICAEosinophils (Bld) [#/Vol] 0.06 10*3/uLNormal<0.46[facility] on above:Order Comment: Specimen Type: BLOOD SPECIMEN Ordering Facility: [facility] Address: [address] [place], [place] [address]Performed By: #### 4537-7, 94140-5 #### [facility] CLIA [id number] [address] [place] [address] [place] AMERICAEosinophils/100 WBC (Bld)0.8 %NormalParkview Health Bryan Hospital on above:Order Comment: Specimen Type: BLOOD SPECIMEN Ordering Facility: [facility] Address: [address] [place], [place] [address]Performed By: #### 4537-7, 59058-4 #### [facility] CLIA [id number] [address] [place] [address] [place] AMERICAErythrocyte distribution width (RBC) [Ratio]16.3 %High11.5-15.0[facility] on above:Order Comment: Specimen Type: BLOOD SPECIMEN Ordering Facility: [facility] Address: [address] [place], [place] [address]Performed By: #### 4537-7, 01686-8 #### [facility] CLIA [id number] [address] [place] [address] [place] AMERICAHematocrit (Bld) [Volume fraction]40.8 %Ktgfxi42.0-51.0[facility] on above:Order Comment: Specimen Type: BLOOD SPECIMEN Ordering Facility: [facility] Address: [address] [place], [place] [address]Performed By: #### 4537-7, 72157-6 #### [facility] CLIA [id number] [address] [place] [address] [place] AMERICAHemoglobin (Bld) [Mass/Vol] 12.7 g/dLLow13.0-17.0[facility] on above:Order Comment: Specimen Type: BLOOD SPECIMEN Ordering Facility: [facility] Address: [address] [place], [place] [address]Performed By: #### 4537-7, 24528-8 #### [facility] CLIA [id number] [address] [place] [address] [place] AMERICAImmature granulocytes (Bld) [#/Vol]0.03 10*3/uLNormal<0.10[facility] on above:Order Comment: Specimen Type: BLOOD SPECIMEN [facility] Facility: [facility] Address: [address] [place], [place] [address]Performed By: #### 4537-7, 24602-9 #### [facility] CLIA [id number] [address] [place] [address] [place] AMERICAImmature granulocytes/100 WBC (Bld)0.4 %NormalParkview Health Bryan Hospital on above:Order Comment: Specimen Type: BLOOD SPECIMEN Ordering Facility: [facility] Address: [address] [place], [place] [address]Performed By: #### 4537-7, 90693-3 #### [facility] CLIA [id number] [address] [place] [address] [place] OF AMERICALymphocytes (Bld) [#/Vol] 1.20 10*3/uLNormal1.00-4.00[facility] on above:Order Comment: Specimen Type: BLOOD SPECIMEN Order[facility] Facility: [facility] Address: [address] [place], [place] [address]Performed By: #### 4537-7, 03557-5 #### [facility] CLIA [id number] [address] [place] [address] [place] AMERICALymphocytes/100 WBC (Bld) 16.4 %NormalParkview Health Bryan Hospital on above:Order Comment: Specimen Type: BLOOD SPECIMEN Ordering Facility: [facility] Address: [address] [place], [place] [address]Performed By: #### 4537-7, 26699-1 #### [facility] CLIA [id number] [address] [place], [place] [address]MCH (RBC) [Entitic mass]24.4 pgLow26.0-34.0[facility] on above:Order Comment: Specimen Type: BLOOD SPECIMEN Order[facility] Facility: [facility] Address: [address] [place], [place] [address]Performed By: #### 4537-7, 99108-0 #### [facility] CLIA [id number] [address] [place], [place] [address]MCHC (RBC) [Mass/Vol]31.1 g/oWVjjaup21.5-36.0[facility] on above:Order Comment: Specimen Type: BLOOD SPECIMEN [facility] Facility: [facility] Address: [address] [place], [place] [address]Performed By: #### 4537-7, 74886-0 #### [facility] CLIA [id number] [address] [place], [place] [address]MCV (RBC) [Entitic vol]78.3 fLLow80.0-100.0[facility] on above:Order Comment: Specimen Type: BLOOD SPECIMEN Ordering Facility: [facility] Address: [address] [place], [place] [address]Performed By: #### 4537-7, 49027-2 #### [facility] CLIA [id number] [address] [place] [address] ALBANS HOSPITALMonocytes (Bld) [#/Vol]0.61 10*3/uLNormal<0.87[facility] on above:Order Comment: Specimen Type: BLOOD SPECIMEN Ordering Facility: [facility] Address: [address] [place], [place] [address]Performed By: #### 4537-7, 23347-5 #### [facility] CLIA [id number] [address] [place] [address] [place] AMERICAMonocytes/100 WBC (Bld)8.4 % NormalParkview Health Bryan Hospital on above:Order Comment: Specimen Type: BLOOD SPECIMEN Order[facility] Facility: [facility] Address: [address] [place], [place] [address]Performed By: #### 4537-7, 95742-4 #### [facility] CLIA [id number] [address] [place] [address] [place] AMERICANeutrophils (Bld) [#/Vol] 5.36 10*3/uLNormal1.45-7.50[facility] on above:Order Comment: Specimen Type: BLOOD SPECIMEN [facility] Facility: [facility] Address: [address] [place], [place] [address]Performed By: #### 4537-7, 23212-2 #### [facility] CLIA [id number] [address] [place] [address] [place] AMERICANeutrophils/100 WBC (Bld) 73.5 %NormalParkview Health Bryan Hospital on above:Order Comment: Specimen Type: BLOOD SPECIMEN Ordering Facility: [facility] Address: [address] [place], [place] [address]Performed By: #### 4537-7, 61023-8 #### [facility] CLIA [id number] [address] [place] [address] [place] AMERICANucleated RBC (Bld) [#/Vol] 10*3/uLNormal<0.01[facility] on above:Order Comment: Specimen Type: BLOOD SPECIMEN [facility] Facility[facility] Address: [address] [place], [place] [address]Performed By: #### 4537-7, 66077-9 #### [facility] CLIA [id number] [address] [place] [address] [place] AMERICANucleated RBC/100 WBC (Bld) [Ratio]0.0 /100 WBCNoalCClinton Memorial Hospital on above:Order Comment: Specimen Type: BLOOD SPECIMEN Order[facility] Facility: [facility] Address: [address] [place], [place] [address]Performed By: #### 4537-7, 83033-1 #### [facility] CLIA [id number] [address] [place] [address] [place] AMERICAPlatelet mean volume (Bld) [Entitic vol]8.8 fLLow9.0-12.7CClinton Memorial Hospital on above:Order Comment: Specimen Type: BLOOD SPECIMEN Order[facility] Facility: [facility] Address: [address] [place], [place] [address]Performed By: #### 4537-7, 63646-6 #### [facility] CLIA [id number] [address] [place] [address] [place] AMERICAPlatelets (Bld) [#/Vol]311 10*3/iLEfvyxd317-008IzzqfszfdParkview Health Bryan Hospital on above:Order Comment: Specimen Type: BLOOD SPECIMEN Ordering Facility: [facility] Address: [address] [place], [place] [address]Performed By: #### 4537-7, 51006-3 #### [facility] [place] [id number] [address] [place] [address] [place] AMERICARBC (Bld) [#/Vol]5.21 10*6/uLNormal4.20-6.00[facility] on above:Order Comment: Specimen Type: BLOOD SPECIMEN [facility] Facility[facility] Address: [address] [place], [place] [address]Performed By: #### 4537-7, 91270-7 #### [facility] CLIA [id number] [address] [place], [place] [address] [place] AMERICAWBC (Bld) [#/Vol]7.30 10*3/uLNormal3.70-11.00[facility] on above:Order Comment: Specimen Type: BLOOD SPECIMEN [facility] Facility[facility] Address: [address] [place], [place] [address]Performed By: #### 4537-7, 98991-5 #### [facility] CLIA [id number] [address] [place] [address] [place] AMERICACNOVon 76-15-6747NUIXZuiwug Visit (ORTHMN) CHAVA VASQUEZ JR ([id number]) 1970 M Date Time Provider Department 10/28/24 10:15 AM BRIELLE KRAUS During your visit today, we recorded the following information about you: Brielle Kraus MD 10/28/2024 1:20 PM Signed Brielle Kraus M.D. M.M.Sc. [employer] of Orthopaedic Surgery at [place] [address] Office: [phone] Consult requested for an opinion regarding the evaluation and treatment of the above patient. My final impression and recommendations will be communicated back to the requesting physician by way of the shared medical record or letter via US mail. Patient info: Chava Vasquez JR ([id number]) Service date: 10/28/2024 Referred by: Zen Rdz DO [address] [place] [id number] PCP: DO Garrett Chief Complaint: Left shoulder pain. HPI:Chava Melendezbernardo is a 54 year old Left [...] Negative Axillary n. Negative (more content not included)...NormalKettering Health PrebleCRP SerPl-mCncon 45-96-9707UEC [Mass/Vol]mg/LNormal<0.9CClinton Memorial Hospital on above:Order Comment: Specimen Type: BLOOD SPECIMEN [facility] Facility[facility] Address: [address] [place], [place] [address]Performed By: #### 1988-5 #### [facility] CLIA [id number] [address] [place] [address] [place] [address] [place] AMERICACRP [Mass/Vol]on 10-28-2024 Interpretation and review of laboratory resultsNormalCMorrow County HospitalESR Zekeergren method (Bld) [Velocity]on 34-70-8367DIT (Bld) [Velocity]2 mm/hCleveland ClinicInterpretation and review of laboratory resultsNormal [facility] Clinic Orthopedic CenterESR (Bld) [Velocity]2 mm/hNormal0-15[facility] on above:Order Comment: Specimen Type: BLOOD SPECIMEN [facility] Facility[facility] Address: [address] [place], [place] [address]Performed By: #### 4537-7, 05610-1 #### [facility] CLIA [id number] [address] [place] [address] [place] AMERICAEosinophils/100 WBC Auto (Bld)Ordered By: Max Tucker on 51-97-9531Jtvvxbcence/100 WBC (Bld)0.8 % OhiohealthErythrocyte distribution width Auto (RBC) [Ratio]Ordered By: Max Tucker on 75-96-5701Afpvkrgzlzs distribution width (RBC) [Ratio]16.3 %High11.5-15.0OhiohealthEvaluation of color of body fluidOrdered By: Brielle Kraus on 27-29-6427Zxtfe (Body fld) BloodyAbnormalYellowOhiohealthHematocrit Auto (Bld) [Volume fraction]Ordered By: Max Tucker on 10-56-3756Fphxcedtad (Bld) [Volume fraction]40.8 %39.0-51.0OhiohealthHemoglobin [Mass/volume] in BloodOrdered By: Max Tucker on 31-65-3543Jcoelkhbvl (Bld) [Mass/Vol]12.7 g/dLLow13.0-17.0OhiohealthLaboratory - Hematology and Cell countsOrdered By: Max Tucker on 92-23-8077Mleddcndtui (Bld) [#/Vol]0.06 10*3/uL<0.46OhiohealthImmature granulocytes (Bld) [#/Vol]0.03 10*3/uL<0.10[facility] Immature granulocytes/100 WBC (Bld)0.4 %[facility] - Hematology and Cell countsOrdered By: Brielle Kraus on 10-28-2024 ESR (Bld) [Velocity]2 mm/h0-15OhiohealthLaboratory - Specimen informationOrdered By: Brielle Kraus on 81-83-4796Wwnttgwioi (U)Cloudy AbnormalCleShelby Memorial HospitalLarge Joint Arthro/Inj: L shoulder jointon 76-23-0080RwsswtquBrielle Kraus MD 10/28/2024 1:20 PM Large Joint Arthro/Inj: L shoulder joint 10/28/2024 10:54 AM The procedure site was prepped in the usual sterile fashion. Site: L shoulder joint Aspirate: 2 mL bloody; sent for lab analysis Outcome: Tolerated well, no immediate complications Post-injection instructions were reviewed with the patient and the patient voiced understanding of these instructions. Informed Consent Consent Obtained: Verbal [place] Protocol A moment to CARE was completed. [...] multidisciplinary team (including bedside nurse for hospitalized patients).[facility] Clinic Orthopedic CenterLeukocytes [#/volume] corrected for nucleated erythrocytes in Blood by Automated counOrdered By: Max Tucker on 77-80-5382CFF corrected for nucl RBC Auto (Bld) [#/Vol]7.30 k/uL3.70-11.00[facility] Lymphocytes Auto (Bld) [#/Vol]Ordered By: Max Tucker on 71-60-4874Loakfiddsnc (Bld) [#/Vol]1.20 10*3/uL1.00-4.00[facility] Lymphocytes/100 WBC Auto (Bld)Ordered By: Max Tucker on 10-28-2024 Lymphocytes/100 WBC (Bld)16.4 %[facility] Auto (RBC) [Entitic mass]Ordered By: Max Tucker on 72-92-3788TDR (RBC) [Entitic mass] 24.4 pgLow26.0-34.0K[facility]tering Health Greene MemorialHC Auto (RBC) [Mass/Vol] Ordered By: Max Tucker on 99-01-1566ISOA (RBC) [Mass/Vol]31.1 g/dL30.5-36.0 [facility] Greene MemorialV Auto (RBC) [Entitic vol]Ordered By: Max Tucker on 24-57-1417KJY (RBC) [Entitic vol]78.3 fLLow80.0-100.0OhiohealthManst. john of god hospital body fluid eosinophils/100 leukocytesOrdered By: Brielle Kraus on 07-82-8495Royearkcpwq/100 WBC Manual cnt (Body fld)2FMercy Health Allen HospitalManual body fluid lymphocytes/100 leukocytesOrdered By: Brielle Kraus on 52-95-5655Kwzdgqpynak/100 WBC Manual cnt (Body fld)6FMercy Health Allen HospitalMonocytes Auto (Bld) [#/Vol]Ordered By: Max Tucker on 62-11-2416Mholyftsu (Bld) [#/Vol]0.61 10*3/uL<0.87OhiohealthMonocytes/100 WBC Auto (Bld)Ordered By: Max Tucker on 10-28-2024 Monocytes/100 WBC (Bld)8.4 %OhiohealthNeutrophils Auto (Bld) [#/Vol]Ordered By: Max Tucker on 53-29-4573Ytdtmijavwi (Bld) [#/Vol] 5.36 10*3/uL1.45-7.50OhiohealthNeutrophils/100 WBC Auto (Bld)Ordered By: Max Tucker on 93-15-1923Aisaazyaaaj/100 WBC (Bld)73.5 % OhiohealthNeutrophils/100 WBC Manual cnt (Body fld) Ordered By: Brielle Kraus on 60-29-1508Dgriavjueza/100 WBC (Body fld)87 %High 0-<25OhiohealthNo Panel InformationOrdered By: Brielle Kraus on 54-90-2178E-Reactive Protein, Quantitative<0.3 mg/dL<0.9OhiohealthBody Fluid Macrophages (%)1FMercy Health Allen HospitalBody Fluid Monocytes %4FMercy Health Allen HospitalBody Fluid RBC 1246585 /uLHigh<2000OhiohealthBody Fluid TypeShoulder, LeftOhiohealthBody Fluid CMC001 /uLHigh0-200OhiohealthDifferential Total Cells Erndmhq084 cells counted OhiohealthMiscellaneous Test CommentReviewed by Edna Johnston MDDayton VA Medical Centerynovial Fluid Crystals Preliminary PRELIMINARY REPORT No diagnostic crystals seen. SEE FINAL SF PATH REVIEW OhiohealthNucleated RBC Auto (Bld) [#/Vol]Ordered By: Max Tucker on 08-90-5425Oiiagjgmr RBC (Bld) [#/Vol]10*3/uL<0.01OhiohealthNucleated erythrocytes [Presence] in Blood by Automated countOrdered By: Max Tucker on 05-42-4973Fpcftxcer RBC Auto Ql (Bld)0.0 /100{WBC}OhiohealthPlatelet mean volume Auto (Bld) [Entitic vol]Ordered By: Max Tucker on 79-57-8013Upngbwzu mean volume (Bld) [Entitic vol]8.8 fLLow9.0-12.7FMercy Health Allen HospitalPlatelets Auto (Bld) [#/Vol]Ordered By: Max Tucker on 61-73-7003Ddhbuatyg (Bld) [#/Vol]311 10*3/pN580-350EvjbtqcoyOhiohealthRBC Auto (Bld) [#/Vol]Ordered By: Max Tucker on 37-39-3543JRQ (Bld) [#/Vol]5.21 10*6/uL4.20-6.00Dayton VA Medical CenterYNOVIAL FLUID MANUAL DIFFon 09-21-7222UPM TTL, SYNOVIAL JNBHL450 cells countedNormalCClinton Memorial Hospital on above:Order Comment: Specimen Type: FLUID SPECIMEN [facility] Address: [address] [place] [id number] By: #### KINJAL, [id number], RTSYNF #### [facility] CLIA [id number] [address] [place] [address] [place] AMERICAEOSIN %, BX2JvtczfKdxhtkyab [facility] on above:Order Comment: Specimen Type: FLUID SPECIMEN Ordering Facility: [facility] Address: [address] [place], [place] [address]Performed By: #### KINJAL, [id number], RTSYNF #### [facility] CLIA [id number] [address] [place] [address] [place] OF AMERICALYMPH%, CS7CwimbgUcxikldrqMercy Health St. Charles Hospital on above:Order Comment: Specimen Type: FLUID SPECIMEN [facility] Facility[facility] Address: [address] [place], [place] [address]Performed By: #### KINJAL, [id number], RTSYNF #### [facility] CLIA [id number] [address] [place] [address] [place] AMERICAMACRO%, YW6RxyirfUgiawogmtMercy Health St. Charles Hospital on above:Order Comment: Specimen Type: FLUID SPECIMEN Ordering Facility: [facility] Address: [address] [place], [place] [address]Performed By: #### KINJAL, [id number], RTSYNF #### [facility] CLIA [id number] [address] [place] [address] [place] AMERICAMONO%, RX9JkbdaeEttxtyxltMercy Health St. Charles Hospital on above:Order Comment: Specimen Type: FLUID SPECIMEN [facility] Facility[facility] Address: [address] [place], [place] [address]Performed By: #### KINJAL, [id number], RTSYNF #### [facility] CLIA [id number] [address], [place] [facility] [place] OF AMERICANEUT%33Yuzo9-<25[facility] on above:Order Comment: Specimen Type: FLUID SPECIMEN [facility] Facility[facility] Address: [address] [place], [place] [address]Performed By: #### KINJAL, [id number], RTSYNF #### [facility] CLIA [id number] [address] [place] [address] OF AMERICASYNOVIAL FLUID, CRYSTAL ID/PATHOLOGIST INTERPRETATIONon 50-87-2445MCSNMSL PRELIM, SFPRELIMINARY REPORT No diagnostic crystals seen. SEE FINAL SF PATH REVIEWNoHarrison Community Hospital on above:Order Comment: Specimen Type: FLUID SPECIMEN [facility] Facility[facility] Address: [address] [place], [place] [address]Performed By: #### KINJAL, [id number], RTSYNF #### [facility] CLIA [id number] [address] [place] [address] OF AMERICACRYSTAL REVIEWReviewed by Edna Johnston MDNoHarrison Community Hospital on above:Order Comment: Specimen Type: FLUID SPECIMEN [facility] Facility[facility] Address: [address] [place], [place] [address]Performed By: #### KINJAL, [id number], RTSYNF #### [facility] CLIA [id number] [address] [place] [address] [place] [address] [place] [address] STATES OF AMERICACrystals LM Nom (Syn fld) None seenNormalNone seenParkview Health [facility] on above:Order Comment: Specimen Type: FLUID SPECIMEN Ordering Facility: [facility] Address: [address] [place], [place] [address]Performed By: #### KINJAL, [id number], [id number] #### [facility] CLIA [id number] [address] [place] [address] [place] [address] [place] STATES OF AMERICASYNOVIAL FLUID, ROUTINE Ordered By: Tiffany Mcdonald on [id number] (Unsp spec)CloudyAbnormalClear University Hospitals Elyria Medical CenterClarity (Unsp spec)[facility] on above:Unable to assay. Quantity not sufficient.Color (Syn fld)BloodyAbnormalYellowUniversity Hospitals Elyria Medical CenterColor (Syn fld)[facility] on above:Unable to assay. Quantity not sufficient.Interpretation and review of laboratory resultsAbnormalCMercy Health Kings Mills Hospital Manual cnt (Syn fld) [#/Vol][id number] /uLHighNINF - 2000 /uLClermont County Hospitalpecimen source Nom (Unsp spec)Shoulder, LeftJ.W. [facility] Manual cnt (Syn fld) [#/Vol]817 /uLHigh0 - 200 /uLCrystal Clinic Orthopedic Center SYNOVIAL FLUID, ROUTINEon 30-28-9356Lvkdyfv (Unsp spec)NormalClearCClinton Memorial Hospital on above:Order Comment: Specimen Type: FLUID SPECIMEN Ordering Facility: [facility] Address: [address] [place], [place] [address]Result Comment: Unable to assay. Quantity not sufficient.Performed By: #### KINJAL, [id number], RTSYNF #### [facility] CLIA [id number] [address] [place] [address] (Syn fld)NormalYellow [facility] on above:Order Comment: Specimen Type: FLUID SPECIMEN Ordering Facility: [facility] Address: [address] [place], [place] [address]Result Comment: Unable to assay. Quantity not sufficient.Performed By: #### KINJAL, [id number], RTSYNF #### [facility] CLIA [id number] [address] [place] [address] Manual cnt (Syn fld) [#/Vol][id number] /uLHigh<2000[facility] on above:Order Comment: Specimen Type: FLUID SPECIMEN Ordering Facility: [facility] Address: [address] [place], [place] [address]Performed By: #### SFCRID, [id number], RTSYNF #### [facility] CLIA [id number] [address] [place] [address] [place] OF AMERICASpecimen source Nom (Unsp spec)Shoulder, LeftNormalCClinton Memorial Hospital on above:Order Comment: Specimen Type: FLUID SPECIMEN Ordering Facility: [facility] Address: [address] [place], [place] [address]Performed By: #### KINJAL [id number], RTSYNF #### [facility] CLIA [id number] [address] [place] [address] [place] AMERICAWBC Manual cnt (Syn fld) [#/Vol]817 /uLHigh0-200[facility] on above:Order Comment: Specimen Type: FLUID SPECIMEN Ordering Facility: [facility] Address: [address] [place], [place] [address]Performed By: #### KINJAL [id number], RTSYNF #### [facility] CLIA [id number] [address] [place] [address] [place] VBXLWCBXqI2c HPLC (Bld) [Mass fraction]Ordered By: Max Tucker on 14-57-7649NiD7z (Bld) [Mass fraction]8.3 % [facility] Miscellaneous-LCon 36-59-5679Vcv MiscellaneousCOMMENTInvalid Interpretation [facility] Comment on above:Result Comment: Test Ordered: [id number] Interleukin-6, Serum Interleukin-6, Serum <2.5 pg/mL BN [...] endotracheal intubation or mechanical ventilation. Performed at: Lab[address] [id number] PhD Tano Alvarezformed By: #### [id number] #### [facility] [address] [place] [address] 20323BZV w/ Auto Diffon 94-49-6606Owtaivgg Absolute0.0 E9/LNormal 0.0-0.2FFulton County Health CenterComment on above:Performed By: #### [id number] #### [facility] [address] [place] [address] 40492Hdunfvshi/100 WBC (Bld)0.7 %Normal0.0-2.0NOMS HealthcareComment on above:Performed By: #### [id number] #### [facility] [address] [place] [address] 50094Kmg Absolute0.1 E9/LNormal0.0-0.5FFulton County Health Center Comment on above:Performed By: #### [id number] #### [facility] [address] [place] [address] 46545Jgbrtkrvwva/100 WBC (Bld)1.6 %Normal0.0-8.0[facility] Comment on above:Performed By: #### [id number] #### [facility] [address] [place] [address] 12699Guznvgrmprd distribution width (RBC) [Ratio]16.1 %High10.9-14.2 N[facility]S HealthcareComment on above:Performed By: #### [id number] #### [facility] [address] [place] [address] 76068Rxoojpyigo (Bld) [Volume fraction]39.8 %Xccvme63.7-49.0NOMS HealthcareComment on above:Performed By: #### [id number] #### [facility] [address] [place] [address] 53355Oeufqbmeht (Bld) [Mass/Vol]13.0 g/dLLow13.5-17.5[facility] HospitalComment on above:Performed By: #### [id number] #### [facility] [address] [place] [address] 85108Qhplh Absolute0.8 E9/LLow1.0-4.0[facility] Comment on above:Performed By: #### [id number] #### [facility] [address] [place] [address] 30948Drdvczjmzlp/100 WBC (Bld)12.3 %Low14.0-50.0[facility] Comment on above:Performed By: #### [id number] #### [facility] [address] [place] [address] 13639AUL (RBC) [Entitic mass]24.9 pgLow27.0-34.0[facility] Comment on above:Performed By: #### [id number] #### [facility] [address] [place] [address] 69596PEZR (RBC) [Mass/Vol]32.7 g/pMUraakf83.4-36.0[facility] Comment on above:Performed By: #### [id number] #### [facility] [address] [place] [address] 09902RSQ (RBC) [Entitic vol]76.2 fLLow80.0-100.0[facility] Comment on above:Performed By: #### [id number] #### [facility] [address] [place] [address] 84732Fmai Absolute0.5 E9/LNormal0.2-1.0[facility] Comment on above:Performed By: #### [id number] #### [facility] [address] [place] [address] 32268Htrruguqt/100 WBC (Bld)7.8 %Normal4.0-14.0[facility] Healthcare Comment on above:Performed By: #### [id number] #### [facility] [address], [place] [address]Ualyew Absolute5.3 E9/LNormal2.0-7.5FFulton County Health Center Comment on above:Performed By: #### [id number] #### [facility] [address], [place] [address]ZBJZZC AUTO77.6 %High36.0-75.0NOPR HealthcareComment on above: Performed By: #### [id number] #### [facility] [address] [place] [address] 26151Ywlkhgjp872.0 E9/HFjoqzg021.0-500.0[facility] Comment on above:Performed By: #### [id number] #### [facility] [address] [place] [address] 96859Ruqfmryp mean volume (Bld) [Entitic vol]7.0 fLNormal6.4-10.8 [facility] HospitalComment on above:Performed By: #### [id number] #### [facility] [address] [place] [address] 07482UHV3.2 E12/LNormal4.3-5.9[facility] HospitalComment on above:Performed By: #### [id number] #### [facility] [address] [place] [address] 67345ANU3.8 E9/LNormal4.0-11.0[facility] HospitalComment on above:Performed By: #### [id number] #### [facility] [address] [place] [address] 47777SAUZWPUOESqdjcsv By: SYSTEM SYSTEM on 80-62-0074XTO [Mass/Vol] 0.4 mg/dLNormal<=1.9mg/dLRemisol ChemCRPon 29-71-3596GER8.4 mg/dLNormal<=1.[address] [facility] CenterComment on above:Performed By: #### [id number] #### [facility] [address] [place], [place] [address]CE UPPER EXTREMITY W/ CONTRAST LEFTon 09-24-2024 Exam [...] Chava Robert DO Transcribed by: SALVADOR Technologist: CASSANDRA,[facility] OKLAHOMA CITYRadiology, Radiologist, - 09/24/2024 Exam Date/Time: 09/24/2024 12:00 [...] SALVADOR Technologist: FELIBERTO TRUJILLO HealthcareRadiology Study observation (narrative)[facility] UPPER EXTREMITY W/ CONTRAST LEFTOrdered By: Radiologist Radiology on 81-06-3460[employer] Work Phone: ct Upper Extremity w/ Contrast Lefton 33-57-5080GS Upper Extremity w/ Contrast LeftExam Date/Time: 09/24/2024 [...] Chava Robert DO Transcribed by: SALVADOR Technologist: CASSANDRAOhioHealth Grant Medical Center CBC W/ AUTO DIFFon 97-14-3315Wdcowfppz (Bld) [#/Vol]0 10*3/uLTOOELE VALLEY HOSPITAL HealthcareEOS ABSOLUTE0.1NOMS HealthcareHemoglobin (Bld) [Mass/Vol]13 g/dLJohn J. Pershing VA Medical Center Interpretation and review of laboratory resultsAbnormalNOPR HealthcareLYMPH ABSOLUTE0.8LowNOMS HealthcareMONO ABSOLUTE0.5NOMS HealthcareNEUTRO ABSOLUTE5.3 NOMS HealthcarePlatelet mean volume (Bld) [Entitic vol]7 fL6.4 - 10.8 fLTOOELE VALLEY HOSPITAL HealthcarePlatelets (Bld) [#/Vol]389 10*3/uLNOPR HealthcareRBC (Bld) [#/Vol]5.2 10*6/uLNOPR HealthcareWBC (Bld) [#/Vol]6.8 10*3/uLNOPR HealthcareOriginal Ordering Provider: DO Zen RdzINISJORDAN VALLEY [facility]ICAL [facility]ENTER HealthcareHEMATOLOGYOrdered By: SYSTEM SYSTEM on 93-46-5602Riryazyin/100 WBC (Bld)0.7 %Normal0.0 - 2.0 %Remisol HemeBasophils/Leukocytes Auto (Bld) [Pure # fraction]0.0 E9/LNormal0.0 - 0.2 E9/LRemisol HemeEosinophils (Bld) [#/Vol]0.1 E9/LNormal0.0 - 0.5 E9/LRemisol HemeEosinophils/100 WBC (Bld)1.6 %Normal0.0 - 8.0 %Remisol HemeErythrocyte distribution width (RBC) [Ratio]16.1 %High10.9 - 14.2 %Remisol HemeHematocrit (Bld) [Volume fraction]39.8 %Fvrsbe24.7 - 49.0 %Remisol HemeHemoglobin (Bld) [Mass/Vol]13.0 g/dLLow13.5 - 17.5 gm/dLRemisol HemeLymphocytes (Bld) [#/Vol]0.8 E9/LLow1.0 - 4.0 E9/LRemisol HemeLymphocytes/100 WBC (Bld)12.3 %Low14.0 - 50.0 % Remisol HemeMCH (RBC) [Entitic mass]24.9 pgLow27.0 - 34.0 pgRemisol HemeMCHC (RBC) [Mass/Vol]32.7 g/jAUehfzf77.4 - 36.0 gm/dLRemisol HemeMCV (RBC) [Entitic vol]76.2 fLLow80.0 - 100.0 fLRemisol HemeMonocytes (Bld) [#/Vol]0.5 E9/LNormal 0.2 - 1.0 E9/LRemisol HemeMonocytes/100 WBC (Bld)7.8 %Normal4.0 - 14.0 %Remisol HemeNeutrophils (Bld) [#/Vol]5.3 E9/LNormal2.0 - 7.5 E9/LRemisol Heme Neutrophils/100 WBC (Bld)77.6 %High36.0 - 75.0 %Remisol HemePlatelet mean volume (Bld) [Entitic vol]7.0 fLNormal6.4 - 10.8 fLRemisol HemePlatelets (Bld) [#/Vol] 389.0 E9/UDcvqdc613.0 - 500.0 E9/LRemisol HemeRBC (Bld) [#/Vol]5.2 E12/LNormal 4.3 - 5.9 E12/LRemisol HemeWBC corrected for nucl RBC Auto (Bld) [#/Vol]6.8 E9/L Normal4.0 - 11.0 E9/LRemisol HemeHEMATOLOGYOrdered By: Digna Wagoner on 09-24-2024 ESR (Bld) [Velocity]11 mm/hNormal0 - 19 mm/hrFTMC HemeAutoSSLab Miscellaneous-LC on 55-53-6104Fhzi Acwb575357Lvgpplf Interpretation CodePromedica Fostoria Community HospitalComment on above:Performed By: #### [id number] #### [facility] [address], [place] [address]Vrrm NameInterleukin-6Invalid Interpretation CodePromedica Fostoria Community HospitalComment on above:Performed By: #### [id number] #### [facility] [address] [place] [address] 755[address]Dqioikkci Laboratory TestingOrdered By: Catalina Holley on 90-14-1578Xedqdz [Moles/Vol]584238 mmol/LInvalid Interpretation [facility] SendOutsSSTest NameInterleukin-6Invalid Interpretation [facility] SendOutsSSSed Rate Automatedon 86-17-6706Rnb Rate Wuyovubsj02 mm/hrNormal0-19[facility] HospitalComment on above:Performed By: #### [id number] #### [facility] [address] [place] [address] 32632IN INJ SHOULDER ARTHROGRAM LEFTon 09-24-2024 Exam Date/Time: [...] Rosado MD Transcribed by: SALVADOR Technologist: LIANNA [facility]landRadiology Study observation (narrative)[facility]landXR INJ SHOULDER ARTHROGRAM LEFTOrdered By: Radiologist Radiology on 33-57-9881HSHCChildren's Mercy Northland Work Phone: XR Inj Shoulder Arthrogram Lefton 34-26-9383OI Inj Shoulder Arthrogram LeftExam Date/Time: 09/24/2024 12:10 [...] Jignesh Rosado MD Transcribed by: SALVADOR Technologist: [facility] CenterXR Shoulder - left 2 Viewson 33-02-2968Rnqwkch Result: AP Grashey and scapular Y-view of the left shoulder taken in the office today does not demonstrate any obvious fracture or displacement of the total shoulder prosthesis essentially unchanged from previous imaging done recently with Dr. Zen RdzQuorum HealthRadiology Study observation (narrative)[facility]landXR Shoulder - left 2 Viewson 09-07-2024 Imaging Result: Two views, AP/axillary left shoulder(s) taken today and saved to the permanent medical record are reviewed. Slight anterior subluxation of humeral head on axillary view. Grashey appears unchanged compared to previous. No signs of prosthetic wear or loosening. No periprosthetic fractures.[facility] HealthXR Shoulder - left 2 Viewson 09-05-2024 Radiology Study observation (narrative)[facility] NorthlandEstimated glomerular filtration rate (GFR) non- Americanon 00-49-9443RPA/1.73 sq M.predicted among non-blacks MDRD (S/P/Bld) [Vol rate/Area]Estimated glomerular filtration rate (GFR) non->=60 mL/min/1.73m 2FMercy Health Allen HospitalGFR/1.73 sq M.predicted among non-blacks MDRD (S/P/Bld) [Vol rate/Area] mL/min/{1.73_m2}>=60 mL/min/1.73m 2FMercy Health Allen HospitalGlobulin Calc (S) [Mass/Vol]on 19-02-4393Bqqzyels (S) [Mass/Vol]Serum globulin measurement by calculation (mass/volume)[facility] Globulin (S) [Mass/Vol]3.4 g/dLOhiohealthLaboratory - Chemistry and Chemistry - challengeon 61-91-8107Qrefssl [Mass/Vol]4.3 g/dL 3.4-5.0OhiohealthALP [Catalytic activity/Vol]60 U/L46-116 [facility]ALT [Catalytic activity/Vol]40 U/L16-63 [facility]AST [Catalytic activity/Vol]23 U/L15-37 [facility]healthBilirubin [Mass/Vol]1.1 mg/dLHigh0.2-1.0 [facility]healthCalcium [Mass/Vol]9.2 mg/dL8.5-10.1FMercy Health Allen HospitalChloride [Moles/Vol]101 mmol/A21-752BfntqnqftOhiohealthCO2 [Moles/Vol]30.6 mmol/L21.0-32.0OhiohealthCreatinine [Mass/Vol]0.92 mg/dL0.70-1.30[facility] GFR/1.73 sq M.predicted MDRD (S/P/Bld) [Vol rate/Area]mL/min/{1.73_m2}>=60 mL/min/1.73m 2FMercy Health Allen HospitalGlucose [Mass/Vol]159 mg/dLHigh 74-106OhiohealthPotassium [Moles/Vol]3.8 mmol/L3.5-5.1 [facility]healthProtein [Mass/Vol]7.7 g/dL6.4-8.2FOhioHealth Nelsonville Health Centerodium [Moles/Vol]138 mmol/C190-485OqmhfdkjeOhiohealthUrea nitrogen [Mass/Vol]18.0 mg/dL7.0-18.0OhiohealthUrea nitrogen/Creatinine [Mass ratio]19.6 mg/mgOhiohealthNo Panel Informationon 54-01-7078Agengbvb Specific Antigen Screen 0.91 ng/mL<=4.00[facility] Centererum or plasma albumin/globulin mass ratioon 45-54-2483Lzbynqr/Globulin [Mass ratio]Serum or plasma albumin/globulin mass ratioOhiohealth Albumin/Globulin [Mass ratio]1.3 {ratio}[facility] Centererum or plasma anion gap determinationon 62-54-6777Niykh gap [Moles/Vol]Serum or plasma anion gap determinationOhiohealthAnion gap [Moles/Vol]10.2 mmol/LFMercy Health Allen HospitalXR Shoulder - left 2 Viewson 30-79-8846Eoaxxqv Result: 1 views, AP, left shoulder(s) taken today and saved to the permanent medical record are reviewed. Prosthesis is unchanged in position and alignment. No signs of prosthetic wear or loosening. No periprosthetic fractures.[facility] HealthcareRadiology Study observation (narrative) [facility]landXR Shoulder - left 2 Viewson 86-41-3697Vrsbipy Result: Two views, AP/outlet left shoulder(s) taken today and saved to the permanent medical record are reviewed. Prosthesis is unchanged in position and alignment. No signs of prosthetic wear or loosening. No periprosthetic fractures.[facility] HealthcareRadiology Study observation (narrative) [facility] NorthlandSurgical Pathology Reporton 07-69-8038Lozriozw Pathology Report [facility] [address] [place] [address]- Surgical Pathology Report Collected Date/Time: 05/22/2024 10:57 [...] aggregate 3.5 x 2.5 x 1 cm. Senior Quality Engineer portion is submitted in two cassettes: 1 - Soft tissue 2 - Bone after decalcification (DC) DC:MCA Microscopic Description Microscopic examination performed unless gross only specified. This report was transcribed using voice recognition technology and might contain unintended computerized biomedical engineering internship errors.NormalPromedica Fostoria Community HospitalComment on above:Performed By: #### [id number] #### [facility] [address] [place], [place] [address]Jpfdfzqygpnw 87-20-2369LlixrhqglcInbgfafkcs Patient: CHAVA VASQUEZ JR Age: 53 years Sex: Male : 1970 Associated Diagnoses: None Author: Art PHAM, Son Garcia Postoperative Information Postoperative disposition: Postoperative disposition: To PACU. Optimetrix number: Optimetrix number [id number]. Anesthetic utilized: General. Health Status Allergies: Allergic [...] bed forobservation overnight. Discussed with patient and family.NormalPromedica Fostoria Community HospitalBMPon 21-62-6598Jqecx gap [Moles/Vol]10 mmol/LNormal6-16[facility] Community HospitalComment on above: Performed By: #### [id number] #### [facility] [address], [place] [address]Fmioxsy [Mass/Vol]7.5 mg/dLLow8.9-11.1FFulton County Health CenterComment on above:Performed By: #### [id number] #### [facility] [address], [place] [address]Ofewvbia [Moles/Vol]108 mmol/JPjyrws343-833ElgvmwPromedica Fostoria Community HospitalComment on above:Performed By: #### [id number] #### [facility] [address], [place] [address]SD4 [Moles/Vol]24 mmol/XKidakl68-84SmbsykPromedica Fostoria Community Hospital Comment on above:Performed By: #### [id number] #### [facility] [address], [place] [address]Ohwmlzlfcw [Mass/Vol]0.7 mg/dLNormal0.5-1.3FFulton County Health CenterComment on above:Performed By: #### [id number] #### [facility] [address], [place] [address]Piehzfk [Mass/Vol]178 mg/yKMypbdt92-260JxwbdkPromedica Fostoria Community HospitalComment on above:Performed By: #### [id number] #### [facility] [address], [place] [address]Qbouiabrn [Moles/Vol]3.5 mmol/LNormal3.5-5.3FFulton County Health CenterComment on above:Performed By: #### [id number] #### [facility] [address], [place] [address]Mvqqqh [Moles/Vol]138 mmol/PKkbsev341-685IqytuyPromedica Fostoria Community HospitalComment on above:Performed By: #### [id number] #### [facility] [address], [place] [address]Peap nitrogen [Mass/Vol]16 mg/dLNormal5-21[facility] Community HospitalComment on above:Performed By: #### [id number] #### [facility] [address], [place] [address]Znsz nitrogen/Creatinine [Mass ratio]23 No VcbgbMmef38-44IivittPromedica Fostoria Community HospitalComment on above:Performed By: #### [id number] #### [facility] [address], [place] [address]JGPhm 16-90-1300Qjkd nitrogen [Mass/Vol]16 mg/dLNormal5-21 [facility] HospitalComment on above:Performed By: #### [id number] #### [facility] [address], [place] [address]XYO w/ Auto Diffon 47-92-5409Dtqpbhwjj/100 WBC (Bld)0.3 %Normal 0.0-2.0NOMS HealthcareComment on above:Performed By: #### [id number] #### [facility] [address] [place] [address] 12933Dcbpvdavp/Leukocytes Auto (Bld) [Pure # fraction]0.0 E9/LNormal 0.0-0.2FFulton County Health CenterComment on above:Performed By: #### [id number] #### [facility] [address] [place] [address] 11691Jhxvlthrmwe (Bld) [#/Vol]0.0 E9/LNormal0.0-0.5FFulton County Health CenterComment on above:Performed By: #### [id number] #### [facility] [address] [place] [address] 16928Wqvdfpmvagr/100 WBC (Bld)0.4 %Normal0.0-8.0[facility] Community HospitalComment on above:Performed By: #### [id number] #### [facility] [address] [place] [address] 57[address]Gsqizeehwml distribution width (RBC) [Ratio]15.7 %High10.9-14.2 NOM[facility] HealthcareComment on above:Performed By: #### [id number] #### [facility] [address] [place] [address] 33875Gqqgzlsrwx (Bld) [Volume fraction]33.6 %Low37.7-49.0NOMS HealthcareComment on above:Performed By: #### [id number] #### [facility] [address] [place] [address] 51351Tfwagosdmg (Bld) [Mass/Vol]11.2 g/dLLow13.5-17.5FFulton County Health CenterComment on above:Performed By: #### [id number] #### [facility] [address] [place] [address] 08328Ublmmpbzikw (Bld) [#/Vol]0.8 E9/LLow1.0-4.0[facility] Community HospitalComment on above:Performed By: #### [id number] #### [facility] [address] [place] [address] 84596Sselnjkdurl/100 WBC (Bld)8.1 %Low14.0-50.0[facility] Comment on above:Performed By: #### [id number] #### [facility] [address] [place] [address] 90221FZP (RBC) [Entitic mass]26.5 pgLow27.0-34.0[facility] Community HospitalComment on above:Performed By: #### [id number] #### [facility] [address] [place] [address] 11277RGLS (RBC) [Mass/Vol]33.5 g/yBMdtoca54.4-36.0[facility] HospitalComment on above:Performed By: #### [id number] #### [facility] [address] [place] [address] 01206CPH (RBC) [Entitic vol]79.2 fLLow80.0-100.0[facility] Community HospitalComment on above:Performed By: #### [id number] #### [facility] [address] [place] [address] 033[address]Clqgoabfs (Bld) [#/Vol]0.9 E9/LNormal0.2-1.0[facility] Community HospitalComment on above:Performed By: #### [id number] #### [facility] [address] [place] [address] 78988Kevnhwihtyr (Bld) [#/Vol]7.9 E9/LHigh2.0-7.5FFulton County Health CenterComment on above:Performed By: #### [id number] #### [facility] [address] [place] [address] 30688Rkblsadlqwt/100 WBC (Bld)81.7 %High36.0-75.0[facility] Comment on above:Performed By: #### [id number] #### [facility] [address], [place] [address]Wqodsuhr359.0 E9/CCwpwkk220.0-500.0[facility] Comment on above:Performed By: #### [id number] #### [facility] [address], [place] [address]Sfiehuty mean volume (Bld) [Entitic vol]7.1 fLNormal6.4-10.8 NOMS HealthcareComment on above:Performed By: #### [id number] #### [facility] [address], [place] [address]BEG (Bld) [#/Vol]4.2 E12/LLow4.3-5.9[facility] Comment on above:Performed By: #### [id number] #### [facility] [address] [place] [address] 18140KTH corrected for nucl RBC Auto (Bld) [#/Vol]9.7 E9/LNormal 4.0-11.0[facility] Community HospitalComment on above:Performed By: #### [id number] #### [facility] [address], [place] [address]UVVOPUBRISzaykab By: Lab Colette on 28-81-4857Mwyloqz [Mass/Vol]161 mg/qUKubm18 - 99 mg/dLCOMMUNITY HOSPITAL – [place] POC SubsectionPOC UsernameWALTON, CHRISTINEInvalid Interpretation CodeCOMMUNITY HOSPITAL – [place] POC SubsectionSodium [Moles/Vol] [id number] mmol/LInvalid Interpretation CodeCOMMUNITY HOSPITAL – [place] POC SubsectionSodium [Moles/Vol]253200066 mmol/LInvalid Interpretation CodeCOMMUNITY HOSPITAL – [place] POC SubsectionGlucose [Mass/Vol]168 mg/jYJwcz57 - 99 mg/dLFT POC SubsectionPOC UsernamjuneRYInvalid Interpretation CodeCOMMUNITY HOSPITAL – [place] POC SubsectionSodium [Moles/Vol] 288475841745 mmol/LInvalid Interpretation CodeCOMMUNITY HOSPITAL – [place] POC SubsectionSodium [Moles/Vol]029910219 mmol/LInvalid Interpretation CodeCOMMUNITY HOSPITAL – [place] POC Subsection CHEMISTRYOrdered By: SYSTEM SYSTEM on 99-39-9266Zppviat [Mass/Vol]7.5 mg/dLLow 8.9 - 11.1 mg/dLRemisol ChemGlucose [Mass/Vol]178 mg/zXLocwty29 - 199 mg/dL Remisol ChemTSH Qn0.51 m[IU]/LNormal0.34 - 5.60 mcIU/mLRemisol ChemUrea nitrogen/Creatinine [Mass ratio]23 mg/ckUfkd50 - 20Remisol ChemCapillary Glucose POCon 00-34-3028Cmrhjwk [Mass/Vol]161 mg/tLXquf93-40CzgeotPromedica Fostoria Community Hospital Comment on above:Performed By: #### [id number] ####[facility]edica [facility] [address] [place], [place] [address]Bwpeivu [Mass/Vol]168 mg/jWDdfq96-76 [facility] HospitalComment on above:Performed By: #### [id number] #### [facility] Laboratory [address], [place] [address]Ejpnbncegqdq 25-34-7749Dhytqfghix [Mass/Vol]0.7 mg/dLNormal 0.5-1.3FFulton County Health CenterComment on above:Performed By: #### [id number] #### [facility] [address], [place] [address]EVZS CBC W/ AUTO DIFFon 14-55-7355ZXJUZLIUQTH/100 LEUKOCYTES:NFR:PT:BLD:QN:AUTOMATED COUNT0.4 %0.0 - 8.0 %[facility] EOSINOPHILS:NCNC:PT:BLD:QN:0[facility] BASOPHILS/LEUKOCYTES:NFR.DF:PT:BLD:QN:AUTOMATED YRWHR2DODGSaint Luke's Hospital ERYTHROCYTE MEAN CORPUSCULAR HEMOGLOBIN CONCENTRATION:MCNC:PT:RBC:QN33.5[facility] ERYTHROCYTE MEAN CORPUSCULAR HEMOGLOBIN:ENTMASS:PT:RBC:QN26.5 pg Low27.0 - 34.0 pgSaint Luke's Hospital ERYTHROCYTE MEAN CORPUSCULAR VOLUME:ENTVOL:PT:RBC:QN:AUTOMATED COUNT79.2 fLLow80.0 - 100.0 [facility] ERYTHROCYTES:NCNC:PT:BLD:QN:AUTOMATED COUNT4.2LowNSt. Luke's Hospital HEMOGLOBIN:MCNC:PT:BLD:QN:11.2LowNSt. Luke's Hospital LEUKOCYTES9.7NOSaint Luke's Health System MONOCYTES:NCNC:PT:BLD:QN:AUTOMATED COUNT0.9NOSaint Luke's Health System NEUTROPHILS:NCNC:PT:BLD:QN:AUTOMATED COUNT7.9HighChildren's Mercy NorthlandInterpretation and review of laboratory resultsAbnormalChildren's [facility]cy Northland LYMPHOCYTES:NCNC:PT:BLD:QN:0.8LowTOOELE VALLEY [facility] HealthcarePlatelets (Bld) [#/Vol]247 10*3/uLChildren's Mercy NorthlandOriginal Ordering Provider: DO Zen MosesCITIZENS BAPTISTBACILIOEast Cooper Medical CenterHEMATOLOGYOrdered By: SYSTEM SYSTEM on 18-28-4831Rksykpmzu/100 WBC (Bld)0.3 %Normal0.0 - 2.0 %Remisol HemeBasophils/Leukocytes [...] pgLow27.0 - 34.0 pgRemisol HemeMCHC (RBC) [Mass/Vol]33.5 g/mUJvewnc79.4 - 36.0 gm/dL Remisol HemeMCV (RBC) [Entitic vol]79.2 fLLow80.0 - 100.0 fLRemisol Heme Monocytes (Bld) [#/Vol]0.9 E9/LNormal0.2 - 1.0 E9/LRemisol HemeMonocytes/100 WBC (Bld)9.5 %Normal4.0 - 14.0 %Remisol HemeNeutrophils (Bld) [#/Vol]7.9 E9/LHigh 2.0 - 7.5 E9/LRemisol HemeNeutrophils/100 WBC (Bld)81.7 %High36.0 - 75.0 % Remisol SjldJbnkdpgs020.0 E9/ZTdmakb508.0 - 500.0 E9/LRemisol HemePlatelet mean volume (Bld) [Entitic vol]7.1 fLNormal6.4 - 10.8 fLRemisol HemeRBC (Bld) [#/Vol] 4.2 E12/LLow4.3 - 5.9 E12/LRemisol HemeWBC corrected for nucl RBC Auto (Bld) [#/Vol]9.7 E9/LNormal4.0 - 11.0 E9/LRemisol HemeInpatient Clinical Summaryon 00-40-8456Wtcxhzyxm Clinical SummaryInpatient Clinical Summary [place] [address] Clinical Summary Person Information: Name: CHAVA VASQUEZ JR Age: 53 Years : 1970 Sex: Male PCP: MAX TUCKER DO Marital Status: Race: White Ethnicity: Non- or Language: Persian Visit Id: Visit Reason: OA LEFT SHOULDER Speciality: Acuity: Enc Type: Outpatient in a Bed Med Service: Surgery Arrival: 05/22/2024 07:46:27 Discharge: Dispo Type: Address: [address] [place] [address] [place] [id number] Provider Notes: Diagnosis: 1:Drug-induced myopathy; 4:Controlled type [...] up: With: Address: When: MAX TUCKER [address] [place] [address] Business (1) Within 7 to 10 days, only if needed Comments: Call for followup appointment With: Address: When: Zen Rdz [address] [place], [place] [id number] Business (1) 06/04/2024 11:15 AM Comments: Appointment has already been scheduled. Call for any problems. Patient Education Information: Post Op Patient Instructions - FT (Custom) (CUSTOM); Shoulder Cryocuff Patient Instructions - FT (CUSTOM); Soumya Rdz - Shoulder Replacement (Custom)[facility] HospitalInpatient Patient Summaryon 38-54-9429Lbzogsgvt Patient SummaryInpatient Patient Summary CHAVA VASQUEZ JR [...] Call for any problems. Where: [place] [address]- Business (1) Follow Up with MAX TUCKER When: Within 7 to 10 days, only if needed Comments: Call for followup appointment Where: [address] [facility], [place] [address]- Business (1) Medications What How Much When Instructions Next Dose New acetaminophen-oxycodone (Percocet 5 mg-325 mg oral tablet) See instructions 1-2 tab(s) Oral q4hr Pickup at [facility]/pharmacy #6177 as needed New bacitracin/ HC/ neomycin/ polymyxin B ophthalmic (bacitracin/ HC/ neomycin/ polymyxin B Opth Oint) 1 Application Ophthalmic 3 times a day Pickup at [facility]/pharmacy #6177 as prescribed Unchanged alprazolam (alprazolam 0.25 mg Tab) 1 Tablets By Mouth Every 8 hours as needed for anxiety as before Unchanged atorvastatin (atorvastatin 80 mg Tab) 1 Tablets By Mouth Every day 05/23/24 pm Unchanged celecoxib (CeleBREX 200 mg Cap) 1 Capsules By Mouth Every day start after finishing ketorolac Pickup at [facility]/pharmacy #6177 as before/prescribed Unchanged cephalexin (Keflex 500 mg Cap) 1 Capsules By Mouth Every 8 hours Duration: 7 Days Pickup at [facility]/pharmacy #6177 05/23/24 4 pm Unchanged citalopram (CeleXA 20 mg Tab) 1 Tablets By Mouth Every day as before/prescribed Unchanged docusate (Colace 100 mg Cap) 1 Capsules By Mouth 2 times a day as needed for for constipation 05/23/24 pm Unchanged gabapentin (gabapentin 300 mg Cap) 1 Capsules By Mouth 3 times a day Duration: 14 Days Pickup at [facility]/pharmacy #6177 as before Unchanged glimepiride (glimepiride 1 mg Tab) 1.5 Tablets By Mouth Every day as before Unchanged ketorolac (ketorolac 10 mg Tab) 1 Tablets By Mouth Every 8 hours Duration: 3 Days Pickup at [facility]/pharmacy #6177 as prescribed Unchanged metformin-sitagliptin (Janumet 50 mg/ 1000 mg oral tablet) 1 Tablets By Mouth 2 times a day as before Unchanged omeprazole (omeprazole 40 mg Cap-DR) 1 Capsules By Mouth Every day 05/23/24 pm Unchanged sildenafil (sildenafil 100 mg Tab) 1 Tablets By Mouth Every day as needed for erectile dysfunction as before Pharmacy Information [facility]/pharmacy #6177: [address] [place], [place] [phone] What How Much When Comments Stop Taking etodolac (etodolac 500 mg Tab) 1 Tablets By Mouth 2 times a day Stop Ta (more content not included)...[facility] HospitalInpatient Patient SummaryInpatient Patient Summary [address] [address] Patient Discharge Instructions PERSON INFORMATION [...] Follow up: With: Address: When: MAX TUCKER [address] [place] [id number] Business (1) Within 7 to 10 days, only if needed Comments: Call for followup appointment With: Address: When: Zen Rdz [address] [place], [place] [id number] [facility] () 06/04/2024 11:15 AM Comments: Appointment [...] OCCURRED DURING YOUR HOSPITAL STAY New Medications [facility]/pharmacy #6177, [address], [place] [id number], [phone] acetaminophen-oxycodone (Percocet 5 mg-325 mg oral tablet) 1-2 tab(s) Oral q4hr. Refills: 0. Last Dose: Next Dose: bacitracin/HC/neomycin/polymyxin B ophthalmic (bacitracin/HC/neomycin/polymyxin B Opth Oint) 1 Application Ophthalmic 3 times a day. Refills: 0. Last Dose: Next Dose: Medications to Continue with No Changes [facility]/pharmacy #6177, [address], [place] [id number], [phone] celecoxib (CeleBREX 200 mg Cap) 1 Capsules [...] Next Dose: No L (more content not included)...[facility] Interdisciplinary Note - Case Manageron 09-06-8091Gjgdpqzamvpepbqyv Note - Case ManagerInterdisciplinary Note - Elementary Vocal Music Teacher Patient is awake and alert in bed, previously rounded with Dr. Denton at bedside. Patient is aware of plan to DC home today, will transport, declines any concerns or DC needs. Per PT/OT no DC needs. . PCP verified and insurance information reviewed and DME discussed. Contact information provided and white board updated.[facility] HospitalComment on above:Result Comment: Electronically Signed By: Jennifer FREEMAN, Paola\.manuel\Date and Time Signed: 05/23/24 10:51 ESTLaboratory - Chemistry and Chemistry - challengeOrdered By: SYSTEM SYSTEM on 82-18-7759Ndvxv gap [Moles/Vol]10 mmol/LNormal6 - 16 mEq/L Remisol ChemChloride [Moles/Vol]108 mmol/KKyuetu595 - 111 mmol/LRemisol ChemCO2 [Moles/Vol]24 mmol/RYoceee79 - 31 mmol/LRemisol ChemCreatinine [Mass/Vol]0.7 mg/dLNormal0.5 - 1.3 mg/dLRemisol ChemPotassium [Moles/Vol]3.5 mmol/LNormal3.5 - 5.3 mmol/LRemisol ChemSodium [Moles/Vol]138 mmol/HMgcwaz007 - 145 mmol/LRemisol ChemUrea nitrogen [Mass/Vol]16 mg/dLNormal5 - 21 mg/dLRemisol ChemLyteson 81-44-6726Hysgy gap [Moles/Vol]10 mmol/LNormal6-16[facility] Comment on above:Performed By: #### [id number] #### [facility] [address], [place] [address]Opjhzohx [Moles/Vol]108 mmol/NLigdam101-029XhxjqnPromedica Fostoria Community HospitalComment on above:Performed By: #### [id number] #### [facility] [address], [place] [address]ZR9 [Moles/Vol]24 mmol/HWxgpsf52-44UrlbgvPromedica [facility] Community Hospital Comment on above:Performed By: #### [id number] #### [facility] [address], [place] [address]Ztptfowlk [Moles/Vol]3.5 mmol/LNormal3.5-5.3FFulton County Health CenterComment on above:Performed By: #### [id number] #### [facility] [address], [place] [address]Xbdzba [Moles/Vol]138 mmol/UXogmbi469-063IheydgPromedica Fostoria Community HospitalComment on above:Performed By: #### [id number] #### [facility] [address], [place] [address]Zhfi OR Intraoperative Recordon [id number] OR Intraoperative RecordMain OR Intraoperative Record IntraOp Document Type FT Summary Primary Physician: Zen Rdz DO Finalized Date/Time: 05/23/24 14:10:45 Pt. Name: CHAVA VASQUEZ JR/Sex: 1970 Male Med Rec #: [id number] Physician: Zen Rdz DO Financial #: [id number] Pt. Type: O Room/Bed: 02/ Admit/Disch: 05/22/24 [...] Zen Bass DO, CST, Benjamin Role Performed EXTRUSION BENDER Surgeon - Primary COREMAKER/SA Time In 05/22/24 10:01:00 05/22/24 10:30:00 05/22/24 10:01:00 Time Out 05/22/24 12:24:00 05/22/24 12:00:00 05/22/24 12:24:00 Procedure SHOULDER TOTAL SHOULDER TOTAL SHOULDER TOTAL ARTHROPLASTY(Left) ARTHROPLASTY(Left) ARTHROPLASTY(Left) Comments IS SUPERVISING Last Modified By: Roseline Lora Kelsie E Burgderfer, Kelsie E 05/22/24 12:26:35 05/22/24 12:26:35 05/22/24 12:26:35 Entry 4 Entry 5 Entry 6 Case Attendee Roseline Lora LPN, Jack Ray Role Performed Radiological Metallurgist - Primary Scrub - Primary Staff - [...] Wilhelm CST, Guido Santana Kelsie E, Mc TECHNICAL ADMINISTRATIVE ASSISTANT, Damaris Alberto, Jack Arellano Troike, Kendall R [...] By: Roseline Lora 05/22/24 (more content not included)...NormalPromedica F[facility]oria Community HospitalNo Panel InformationOrdered By: SYSTEM SYSTEM on 01-73-3908qGVG169 mL/min/1.73 l2Gvunut >=59mL/min/1.73 c7Vlknldt ChemTSH With T4fr Reflexon 66-88-4444VXA Qn0.51 m[IU]/LNormal0.34-5.60[facility] HospitalComment on above:Performed By: #### [id number] #### [facility] [address], [place] [address]qRKAmr 32-28-1771tWUK052 mL/min/1.73 w0Osevkt>=59[facility] HospitalComment on above:Performed By: #### [id number] #### [facility] [address], [place] [address]vVDM316 mL/min/1.73 c4Olniwv>=59[facility] Comment on above:Performed By: #### [id number] #### [facility] [address], [place] [address]VJQ/Rhon 24-19-7458YYK/RhPositiveInvalid Interpretation Code [facility] HospitalComment on above:Performed By: #### [id number] #### [facility] Laboratory [address], [place] [address]ZUM/Rh History Checkon 32-15-4729KZA/Rh History CheckVerified Hx Blood TypeNormalPromedica Fostoria Community HospitalComment on above:Performed By: #### [id number] #### [facility] Laboratory [address], [place] [address]ZJGGoz 36-18-4636UYAP Gel InterpNegativeNormalPromedica Fostoria Community HospitalComment on above:Performed By: #### [id number] #### [facility] Laboratory [address], [place] [address]RYKJI BANKOrdered By: Aurelia Lechuga on 90-44-0612ZUP/Rh InterpPositiveInvalid Interpretation CodeCOMMUNITY HOSPITAL – [place] CITY BB SubsectionABSC Gel Interp Negative (05/22/24 8:13 AM)NormalCOMMUNITY HOSPITAL – [place] BB SubsectionBMPon 11-57-0785Hggcz gap [Moles/Vol]11 mmol/LNormal6-16[facility] HospitalComment on above:Performed By: #### [id number] #### [facility] [address], [place] [address]Uiidweb [Mass/Vol]7.5 mg/dLLow8.9-11.1FFulton County Health CenterComment on above:Performed By: #### [id number] #### [facility] [address], [place] [address]Qktcfojr [Moles/Vol]108 mmol/IFhbhiw679-294WsqiyoPromedica Fostoria Community HospitalComment on above:Performed By: #### [id number] #### [facility] [address], [place] [address]LK7 [Moles/Vol]22 mmol/MXciyrg43-94RruagbPromedica F[facility]oria Community Hospital Comment on above:Performed By: #### [id number] #### [facility] [address], [place] [address]Mncrpphpjz [Mass/Vol]0.8 mg/dLNormal0.5-1.3FFulton County Health CenterComment on above:Performed By: #### [id number] #### [facility] [address], [place] [address]Kcaebnc [Mass/Vol]180 mg/pLRbckcm58-790IkneeaPromedica Fostoria Community HospitalComment on above:Performed By: #### [id number] #### [facility] [address], [place] [address]Jrvrerdxa [Moles/Vol]3.6 mmol/LNormal3.5-5.3FFulton County Health CenterComment on above:Performed By: #### [id number] #### [facility] [address], [place] [address]Uvnlwl [Moles/Vol]137 mmol/MIvtkzy638-463HfsmnxPromedica Fostoria Community HospitalComment on above:Performed By: #### [id number] #### [facility] [address], [place] [address]Xoti nitrogen [Mass/Vol]15 mg/dLNormal5-21[facility] HospitalComment on above:Performed By: #### [id number] #### [facility] [address], [place] [address]Tshx nitrogen/Creatinine [Mass ratio]19 No QlcacQtczbh77-13 [facility] HospitalComment on above:Performed By: #### [id number] #### [facility] [address], [place] [address]Ymidm Bank ID#on [id number]#[id number] Interpretation CodePromedica Fostoria Community HospitalComment on above:Performed By: #### [id number] #### [facility] [address], [place] [address]ORX w/ Auto Diffon 05-81-8740Pdlm form neutrophils/100 WBC (Bld)10.0 %High0.0-6.0[facility] HospitalComment on above:Performed By: #### [id number] #### [facility] [address], [place] [address]Gpglvwnyu (Bld) [#/Vol]0.0 E9/LNormal0.0-0.2FFulton County Health CenterComment on above:Performed By: #### [id number] #### [facility] [address] [place] [address]Emmsequqljq (Bld) [#/Vol]0.0 E9/LNormal0.0-0.5FFulton County Health CenterComment on above:Performed By: #### [id number] #### [facility] [address] [place] [address]Xztyzeixgos/100 WBC (Bld)0.0 %Normal0.0-8.0[facility] HospitalComment on above:Performed By: #### [id number] #### [facility] [address] [place] [address]Nvcckkcfyfs distribution width (RBC) [Ratio]15.5 %High10.9-14.2 [facility] HospitalComment on above:Performed By: #### [id number] #### [facility] [address] [place] [address]Osbuoquuqq (Bld) [Volume fraction]35.9 %Low37.7-49.0[facility] HospitalComment on above:Performed By: #### [id number] #### [facility] [address] [place] [address]Icpkebrzla (Bld) [Mass/Vol]11.9 g/dLLow13.5-17.5FFulton County Health CenterComment on above:Performed By: #### [id number] #### [facility] [address] [place] [address]Ntquzuopokp (Bld) [#/Vol]0.1 E9/LLow1.0-4.0[facility] HospitalComment on above:Performed By: #### [id number] #### [facility] [address] [place] [address]Opiwntyvydp/100 WBC (Bld)1.0 %Low14.0-50.0[facility] HospitalComment on above:Performed By: #### [id number] #### [facility] [address] [place] [address]TJY (RBC) [Entitic mass]26.4 pgLow27.0-34.0[facility] HospitalComment on above:Performed By: #### [id number] #### [facility] [address] [place] [address]QNFL (RBC) [Mass/Vol]33.1 g/pXVugseh96.4-36.0[facility] HospitalComment on above:Performed By: #### [id number] #### [facility] [address] [place] [address]MNH (RBC) [Entitic vol]79.7 fLLow80.0-100.0[facility] HospitalComment on above:Performed By: #### [id number] #### [facility] [address] [place] [address]Poctzycsh (Bld) [#/Vol]0.3 E9/LNormal0.2-1.0[facility] HospitalComment on above:Performed By: #### [id number] #### [facility] [address] [place] [address]Tsqhhzlcjkn (Bld) [#/Vol]13.3 E9/LInvalid Interpretation Code [facility] HospitalComment on above:Performed By: #### [id number] #### [facility] [address] [place] [address]Rhsncgdy mean volume (Bld) [Entitic vol]7.0 fLNormal6.4-10.8 [facility] HospitalComment on above:Performed By: #### [id number] #### [facility] [address] [place] [address]Bkwdmowjw (Bld) [#/Vol]254.0 E9/QCpeucl061.0-500.0[facility] HospitalComment on above:Performed By: #### [id number] #### [facility] [address], [place] [address]YOE (Bld) [#/Vol]4.5 E12/LNormal4.3-5.9[facility] HospitalComment on above:Performed By: #### [id number] #### [facility] [address], [place] [address]Ncseugsgd neutrophils/100 WBC (Bld)87.0 %High36.0-75.0[facility] HospitalComment on above:Performed By: #### [id number] #### [facility] [address] [place] [address]APJ corrected for nucl RBC Auto (Bld) [#/Vol]13.7 E9/LHigh 4.0-11.0[facility] HospitalComment on above:Performed By: #### [id number] #### [facility] [address] [place] [address]QEHWKMNPNTmbword By: Lab Colette on 46-56-3079Ydarskk [Mass/Vol]185 mg/vLVjga69 - 99 mg/dLCOMMUNITY HOSPITAL – [place] POC SubsectionComment on above:Result Comment: Notified RN/MDPOC UsernameSHDesmond HAMILTON Interpretation Code [facility] POC SubsectionSodium [Moles/Vol]797357191657 mmol/LInvalid Interpretation CodeCOMMUNITY HOSPITAL – [place] POC SubsectionSodium [Moles/Vol][id number] mmol/LInvalid Interpretation CodeCOMMUNITY HOSPITAL – [place] POC SubsectionCHEMISTRYOrdered By: SYSTEM SYSTEM on 19-62-9812Zurqa gap [Moles/Vol]11 mmol/LNormal6 - 16 mEq/LRemisol ChemCalcium [Mass/Vol]7.5 mg/dL Low8.9 - 11.1 mg/dLRemisol ChemChloride [Moles/Vol]108 mmol/YOxdatj439 - 111 mmol/LRemisol ChemCO2 [Moles/Vol]22 mmol/UWudyso84 - 31 mmol/LRemisol Chem Creatinine [Mass/Vol]0.8 mg/dLNormal0.5 - 1.3 mg/dLRemisol FhwosQXU666 mL/min/1.73 o8Vzyelb>=59mL/min/1.73 h0Xncrspq ChemGlucose [Mass/Vol]180 mg/dL Qzyrvd58 - 199 mg/dLRemisol ChemPotassium [Moles/Vol]3.6 mmol/LNormal3.5 - 5.3 mmol/LRemisol ChemSodium [Moles/Vol]137 mmol/JFhickn202 - 145 mmol/LRemisol Chem Urea nitrogen [Mass/Vol]15 mg/dLNormal5 - 21 mg/dLRemisol ChemUrea nitrogen/Creatinine [Mass ratio]19 mg/ddVxetto30 - 20Remisol ChemCapillary Glucose POCon 46-91-0642Sgcwgpl [Mass/Vol]185 mg/fMZqnc39-66Aqpfpp77 Jackson StreetComment on above:Result Comment: Notified RN/MDPerformed By: #### [id number] #### [facility] [address], [place] [address]Oupuhba [Mass/Vol]200 mg/hFPuub59-09Avigwu[address] Comment on above:Result Comment: Notified RN/MDPerformed By: #### [id number] #### [facility] [address], [place] [address]Vjxnewg [Mass/Vol]183 mg/zORfuq62-86Tofilv[address] Comment on above:Performed By: #### [id number] #### [facility] [address], [place] [address]Ivxdyoh [Mass/Vol]168 mg/vQDglf96-66Hkmrcv[address] Comment on above:Result Comment: Cleaned MeterPerformed By: #### [id number] #### [facility] [address], [place] [address]Cijeymtrn Instructionson 30-53-7169Nnoxaqoud Instructions Discharge Instructions CHAVA VASQUEZ JR :1970 [...] been scheduled. Call for any problems. Where: [address] [place] [address] Business (1) Medications What How Much When Instructions Next Dose New acetaminophen-oxycodone (Percocet 5 mg-325 mg oral tablet) See instructions 1-2 tab(s) Oral q4hr Pickup at [facility]/pharmacy #6177 New celecoxib (CeleBREX 200 mg Cap) 1 Capsules By Mouth Every day start after finishing ketorolac Pickup at [facility]/pharmacy #6177 New cephalexin (Keflex 500 mg Cap) 1 Capsules By Mouth Every 8 hours Duration: 7 Days Pickup at [facility]/pharmacy #6177 New gabapentin (gabapentin 300 mg Cap) 1 Capsules By Mouth 3 times a day Duration: 14 Days Pickup at [facility]/pharmacy #6177 New ketorolac (ketorolac 10 mg Tab) 1 Tablets By Mouth Every 8 hours Duration: 3 Days Pickup at [facility]/pharmacy #6177 Changed docusate (Colace 100 mg Cap) 1 Capsules By Mouth 2 times a day as needed for for constipation Changed docusate (Colace 100 mg Cap) 1 Capsules By Mouth 2 times a day as needed for for constipation Pickup at [facility]/pharmacy #6177 Unchanged alprazolam (alprazolam 0.25 mg Tab) [...] as needed for erectile dysfunction Pharmacy Information [facility]/pharmacy #6177: [address], [place] [phone] What How Much When Comments Stop Taking [...] [employer] [6191-1-010] 05/22/2024, Unknown - FARIBA: {[id number] CORTILOC PEGGED GLENOID 05/22/2024 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 DIVER QUALIFIED 05/22/2024 HUMERAL HEAD 05/22/2024 US ANATOMIC NUCLEUS 05/22/2024 [employer] [place], [place] [facility] DISCHARGE INSTRUCTIONS: SHOULDER REPLACEMENT [...] have a responsible (more content not included)...Normal [facility] HospitalComment on above:Result Comment: Electronically Signed By: Juancarlos FREEMAN, Loulou Gutierrez\.br\Date and Time Signed: 05/22/24 13:06 [facility] CAPILLARY GLUCOSE POCon 95-63-2185Hneixgy [Mass/Vol]168 mg/bVZijm90 - 99 mg/dL NOMS HealthcareComment on above:Cleaned [...] pgLow27.0 - 34.0 pgRemisol HemeMCHC (RBC) [Mass/Vol]33.1 g/aGFohhox89.4 - 36.0 gm/dLRemisol HemeMCV (RBC) [Entitic vol]79.7 fLLow80.0 - 100.0 fLRemisol HemeMonocytes (Bld) [#/Vol]0.3 E9/LNormal0.2 - 1.0 E9/LRemisol HemeMonocytes/100 WBC (Bld)2.0 %Low4.0 - 14.0 % Remisol HemeNeutrophils (Bld) [#/Vol]13.3 E9/LInvalid Interpretation CodeRemisol HemePlatelet mean volume (Bld) [Entitic vol]7.0 fLNormal6.4 - 10.8 fLRemisol HemePlatelets (Bld) [#/Vol]254.0 E9/IPbjdkp589.0 - 500.0 E9/LRemisol HemeRBC (Bld) [#/Vol]4.5 E12/LNormal4.3 - 5.9 E12/LRemisol HemeSegmented neutrophils/100 WBC (Bld)87.0 %High36.0 - 75.0 %Remisol HemeWBC corrected for nucl RBC Auto (Bld) [#/Vol]13.7 E9/LHigh4.0 - 11.0 E9/LRemisol HemeInpatient Patient Summaryon 28-87-3033Lfdognwrq Patient SummaryInpatient Patient Summary [place] [id number] [facility] Clinical Discharge Instructions PERSON INFORMATION Name: CHAVA VASQUEZ JR PHYSICIANS Admitting Physician: Zen Rdz DO Attending Physician: Zen Rdz DO PCP: MAX TUCKER DO Discharge Diagnosis: Comment: PATIENT EDUCATION INFORMATION Instructions: Post Op Patient Instructions - FT (Custom) (CUSTOM); Shoulder Cryocuff Patient Instructions - FT (CUSTOM); Soumya Rdz - Shoulder Replacement (Custom) Medication Leaflets: Follow up: With: Address: When: [place] [address] Business (1) 06/04/2024 11:15 AM Comments: Appointment has already been scheduled. Call for any problems. MEDICATION LIST New Medications [facility]/pharmacy #[id number], [address], [place] [phone], [phone] acetaminophen-oxycodone (Percocet 5 mg-325 mg oral tablet) [...] Medications to Continue Taking That Have Changed [facility]/pharmacy #6177, [address] [place] [phone], [phone] START: docusate (Colace 100 mg Cap) 1 [...] pain. with food or milk. Refills: 0. Comment:[facility] HospitalIn[facility] Patient SummaryInpatient Patient Summary [place] [id number] [facility] Clinical Discharge Instructions PERSON INFORMATION Name: CHAVA VASQUEZ JR PHYSICIANS Admitting Physician: Zen Rdz DO Attending Physician: Zen Rdz DO PCP: MAX TUCKER DO Discharge Diagnosis: Comment: PATIENT EDUCATION INFORMATION Instructions: Soumya Rdz - Shoulder Replacement (Custom) Medication Leaflets: Follow up: MEDICATION LIST New Medications [facility]/pharmacy #6177, [address], [place] [phone], [phone] acetaminophen-oxycodone (Percocet 5 mg-325 mg oral tablet) [...] Medications to Continue Taking That Have Changed [facility]/pharmacy #6177, [address], [place] [phone], [phone] START: docusate (Colace 100 mg Cap) 1 [...] pain. with food or milk. Refills: 0. Comment:[facility] HospitalMain OR Intraoperative Recordon [id number] OR Intraoperative RecordMain OR Intraoperative Record IntraOp Document Type FT Summary Primary Physician: Zen Rdz DO Finalized Date/Time: 05/22/24 12:26:52 Pt. Name: CHAVA VASQUEZ JR./Sex: 1970 Male Med Rec #: [id number] Physician: Zen Rdz DO Financial #: [id number] Pt. Type: A Room/Bed: [place] [address] Admit/Disch: 05/22/24 07:46:27 - Institution: Case Times [...] WAITINGTO GO BACK TO THE OR.LYDIA LÓPEZ. Case Attendance FT Entry 1 Entry 2 Entry 3 Case Attendee Joe Owens CRNA, DO, Jason A Ed COREMAKER, Max Role Performed EXTRUSION BENDER Surgeon - Primary COREMAKER/SA Time In 05/22/24 10:01:00 05/22/24 10:30:00 05/22/24 10:01:00 Time Out 05/22/24 12:24:00 05/22/24 12:00:00 05/22/24 12:24:00 Procedure SHOULDER TOTAL SHOULDER TOTAL SHOULDER TOTAL ARTHROPLASTY(Left) ARTHROPLASTY(Left) ARTHROPLASTY(Left) Comments IS SUPERVISING Last Modified By: Roseline Lora Kelsie E Burgderfer, Kelsie E 05/22/24 12:26:35 05/22/24 12:26:35 05/22/24 12:26:35 Entry 4 Entry 5 Entry 6 Case Attendee Roseline Lora LPN, Jack Ray Role Performed Radiological Metallurgist - Primary Scrub - Primary Staff - [...] symptoms of in (more content not included)... [facility] OR PACU I Recordon [id number] OR PACU I RecordMain OR PACU I Record PACU Phase I Document Type FT Summary Primary Physician: Zen Rdz DO Finalized Date/Time: 05/22/24 17:00:18 Pt. Name: CHAVA VASQUEZ JR Lexy Mckeon/Sex: 1970 Male Med Rec #: [id number] Physician: Zen Rdz DO Financial #: [id number] Pt. Type: O Room/Bed: Admit/Disch: 05/22/24 07:46:27 [...] Signatures Signed By: Charmaine Day I 05/22/24 17:00[facility] OR Preoperative Recordon [id number] OR Preoperative RecordMain OR Preoperative Record PreOp Document Type FT Summary Primary Physician: Zen Rdz DO Finalized Date/Time: 05/22/24 10:44:49 Pt. Name: KAREN MEJIACHAVA/Sex: 1970 Male Med Rec #: [id number] Physician: Zen Rdz DO Financial #: [id number] Pt. Type: A Room/Bed: [place] [address] Admit/Disch: 05/22/24 07:46:27 - Institution: Case Times [...] Roseline Lora 05/22/24 10:44 Roseline Lora 05/22/24 10:44NoOhio Valley Surgical HospitalOperative Reporton [id number] Report Operative Report Patient: KAREN MEJIA CHAVA Pugh Age: 53 years Sex: Male : 1970 Associated Diagnoses: None Author: Zen Rdz DO DATE OF SURGERY: 05/22/2024 SURGEON: Zen Rdz D.O. STITCHER SPECIAL MACHINE: Domingo Ward CFA PREOPERATIVE DIAGNOSIS: Advanced glenohumeral osteoarthrosis, left shoulder POSTOPERATIVE DIAGNOSIS: Advanced glenohumeral osteoarthrosis, left shoulder OPERATION: 1. Left anatomic total shoulder arthroplasty (CPT code 99247) 2. Biceps tenodesis, left shoulder (CPT code 03563) ANESTHESIA: General with a regional block ANESTHESIOLOGIST: Joe Owens CRNA and Son Cordova MD IMPLANTS USED: 1. Tornier Perform Anatomic CortiLoc Pegged Glenoid, size L40 2. Tornier Perform stemless size 3 nucleus, centered humeral head android ui developer, 48 x 18 mm humeral head OPERATIVE INDICATIONS: Chava is a 53-year-old zniuy-wvbw-lhbpexcw male who has had progressively worsening pain [...] details. Presurgical planning was performed with the Elixserve Blueprint software and a patient-specific 3D guide [...] turned to pre (more content not included)...NormalFisher Lagrange Medical CenterComment on above:Result Comment: Electronically Signed By: Zen Rdz DO\.br\Date and Time Signed: 05/22/24 13:17 ESTOutpatient Surgery Discharge Instructionon 28-01-4323Rftftzrggq Surgery Discharge Instruction Outpatient Surgery Discharge Instruction [address] [address] Patient Discharge Instructions PERSON INFORMATION Name: CHAVA VASQUEZ JR Date of : 1970 Current Date: 05/22/2024 15:57:16 PHYSICIANS Admitting Physician: Zen Rdz DO Discharge [...] Follow up: With: Address: When: Zen Rdz [address] [place] [phone] Business (1) 06/04/2024 11:15 AM Comments: Appointment has already been scheduled. Call for any problems. Pharmacy Information: You may receive a survey from [employer] asking you to rate your care experience. Your feedback is important and will help us understand what we do well and how we can improve the quality of care we provide to you, your loved ones and our community. It???s an honor to serve you. Thank you for choosing [facility] HERE ARE THE MEDICATION CHANGES THAT OCCURRED DURING YOUR HOSPITAL STAY New Medications [facility]/pharmacy #[id number], [address], [place] [phone], [phone] acetaminophen-oxycodone (Percocet 5 mg-325 mg oral tablet) [...] Medications to Continue Taking That Have Changed [facility]/pharmacy #6177, [address], [place] [phone], [phone] START: docusate (Colace 100 mg Cap) 1 [...] milk. Refills: 0. PATIENT EDUCATION INFORMATION Instructions: [place] [place] [facility] DISCHARGE INSTRUCTIONS: SHOULDER REPLACEMENT [...] day until follow up. (more content not included)...[facility] HospitalOutpatient Surgery Discharge InstructionOutpatient Surgery Discharge Instruction [address] [address] Patient Discharge Instructions PERSON INFORMATION [...] Information: You may receive a survey from [employer] asking you to rate your care experience. Your feedback is important and will help us understand what we do well and how we can improve the quality of care we provide to you, your loved ones and our community. It???s an honor to serve you. Thank you for choosing [facility] HERE ARE THE MEDICATION CHANGES THAT OCCURRED DURING YOUR HOSPITAL STAY New Medications [facility]pharmacy #6177, [address] [place], [place] [phone], [phone] acetaminophen-oxycodone (Percocet 5 mg-325 mg oral tablet) [...] Medications to Continue Taking That Have Changed [facility]/pharmacy #6181, [address] [place], [place] [phone], [phone] START: docusate (Colace 100 mg Cap) 1 [...] milk. Refills: 0. PATIENT EDUCATION INFORMATION Instructions: [place] [place] [facility] DISCHARGE INSTRUCTIONS: SHOULDER REPLACEMENT [...] Driving is legal, however, (more content not included)...[facility] HospitalProceduralon [id number] Patient: CHAVA VASQUEZ JR Age: 53 years Sex: Male : 1970 Associated Diagnoses: None Author: Son Cordova MD Postoperative Information Postoperative disposition: Postoperative disposition: To PACU. Optimetrix number: Optimetrix number [id number]. Anesthetic utilized: General. Health Status Allergies: Allergic [...] bed forobservation overnight. Discussed with patient and family.[facility] Patient: CHAVA VASQUEZ JR Age: 53 years Sex: Male : 1970 Associated Diagnoses: None Author: Art PHAM, Son Garcia Postoperative Information Postoperative disposition: Postoperative disposition: To PACU. Optimetrix number: Optimetrix number [id number]. Anesthetic utilized: General. Health Status Allergies: Allergic [...] meets criteria ( From PACU to floor ).[facility] HospitaluralPromerit health madisonural Patient: CHAVA VASQUEZ JR Age: 53 years [...] Using maximal sterile barrier technique per current [facility] guidelines including hand hygeine, Guidance (Ultrasound [...] Complications: The patient tolerated the procedure as expected.[facility] HospitalXR SHOULDER COMPLETE LEFTon 05-22-2024 Exam Date/Time: [...] Signed by: Chava Robert DO Transcribed by: ASLVADOR Technologist: CASSANDRACOMMUNITY HOSPITAL – OKLAHOMA CITYRadiology, Radiologist, MD - 05/22/2024 Exam Date/Time: 05/22/2024 [...] SALVADOR Technologist: FELIBERTO TRUJILLO HealthcareRadiology Study observation (narrative)[facility] NorthlandXR SHOULDER COMPLETE LEFTOrdered By: Radiologist Radiology on 02-23-1152NGJG [employer] Work Phone: XR Shoulder Complete Lefton 86-40-9433SF Shoulder Complete LeftExam Date/Time: 05/22/2024 12:43 EST [...] FINAL REPORT Dictated: 05/22/2024 2:31 pm Chava Rboert DO Signed (Electronic Signature): 05/22/2024 2:31 pm Signed by: Chava Robert DO Transcribed by: SALVADOR Technologist: Mauricio TRUJILLOPromedica Fostoria Community HospitaleGFRon 16-70-8872eRHO333 mL/min/1.73 g5Skbkrt>=59Promedica Fostoria Community HospitalComment on above:Performed By: #### [id number] #### [facility] [address], [place] [address] UPPER EXTREMITY W/O CONTRAST LEFTon 05-02-2024 Exam [...] Chava Robert DO Transcribed by: SALVADOR Technologist: [facility] HOSPITALRadiology, Radiologist, - 05/02/2024 Exam Date/Time: 04/30/2024 [...] W/O CONTRAST LEFTOrdered By: Radiologist Radiology on 26-05-5248EOWU [employer] Work Phone: ct Upper Extremity w/o Contrast Lefton 46-26-1362HP Upper Extremity w/o Contrast LeftExam Date/Time: 04/30/2024 [...] Robert DO Transcribed by: SALVADOR Technologist: L[facility]ie [facility] HospitalABO/Rh Retypeon 20-22-2751HAI/Rh Retype InterpPositiveInvalid Interpretation CodePromedica Fostoria Community HospitalComment on above:Performed By: #### [id number] #### [facility] [address], [place] [address]OTJgu 68-79-7511Xonex gap [Moles/Vol]10 mmol/LNormal6-16Prom[facility] Community HospitalComment on above:Performed By: #### [id number] #### [facility] [address], [place] [address]Aseqhbe [Mass/Vol]9.5 mg/dLNormal8.9-11.1FFulton County Health CenterComment on above:Performed By: #### [id number] #### [facility] [address], [place] [address]Gonbxqsm [Moles/Vol]103 mmol/BNbhoxf088-315HuvpyxPromedica Fostoria Community HospitalComment on above:Performed By: #### [id number] #### [facility] [address], [place] [address]SJ6 [Moles/Vol]30 mmol/KHzlauz19-01UopkplPromedica Fostoria Community Hospital Comment on above:Performed By: #### [id number] #### [facility] [address], [place] [address]Qjmmxnfbsc [Mass/Vol]0.9 mg/dLNormal0.5-1.3FFulton County Health CenterComment on above:Performed By: #### [id number] #### [facility] [address], [place] [address]Fyjozta [Mass/Vol]63 mg/fFRljcuq21-370PfjircPromedica Fostoria Community HospitalComment on above:Performed By: #### [id number] #### [facility] [address], [place] [address]Mgrjuxtsx [Moles/Vol]4.3 mmol/LNormal3.5-5.3FFulton County Health CenterComment on above:Performed By: #### [id number] #### [facility] [address], [place] [address]Ycgsis [Moles/Vol]139 mmol/OHnnyoz772-029GnxxjpPromedica Fostoria Community HospitalComment on above:Performed By: #### [id number] #### [facility] [address], [place] [address]Gglt nitrogen [Mass/Vol]18 mg/dLNormal5-21Prom[facility]oria Community HospitalComment on above:Performed By: #### [id number] #### [facility] [address], [place] [address]Hqjg nitrogen/Creatinine [Mass ratio]20 No ZmbfsQzdpjl63-13 [facility] Community HospitalComment on above:Performed By: #### [id number] #### [facility] [address] [place] [address]JLV w/ Auto Diffon 07-47-3597Cbzexkbgs/100 WBC (Bld)0.4 %Normal 0.0-2.0Prom[facility]ostoria Community HospitalComment on above:Performed By: #### [id number] #### [facility] [address] [place] [address]Efunxcedk/Leukocytes Auto (Bld) [Pure # fraction]0.0 E9/LNormal 0.0-0.2FFulton County Health CenterComment on above:Performed By: #### [id number] #### [facility] [address] [place] [address]Oxoahxuioqy (Bld) [#/Vol]0.1 E9/LNormal0.0-0.5FFulton County Health CenterComment on above:Performed By: #### [id number] #### [facility] [address] [place] [address]Xqhvanxezhe/100 WBC (Bld)1.2 %Normal0.0-8.0Prom[facility]oria Community HospitalComment on above:Performed By: #### [id number] #### [facility] [address] [place] [address]Ydjahjgiugb distribution width (RBC) [Ratio]15.2 %High10.9-14.2 [facility]oria Community HospitalComment on above:Performed By: #### [id number] #### [facility] [address] [place] [address]Ulwcpnbyok (Bld) [Volume fraction]40.9 %Vthosv99.7-49.0Prom[facility]oria Community HospitalComment on above:Performed By: #### [id number] #### [facility] [address] [place] [address]Euylmtgjug (Bld) [Mass/Vol]13.6 g/gIJgcyzl57.5-17.5FFulton County Health CenterComment on above:Performed By: #### [id number] #### [facility] [address] [place] [address]Xqdpbbvwkmy (Bld) [#/Vol]1.5 E9/LNormal1.0-4.0[facility] Community HospitalComment on above:Performed By: #### [id number] #### [facility] [address] [place] [address]Foxildfvesu/100 WBC (Bld)16.1 %Hvawaz17.0-50.0[facility]oria Community HospitalComment on above:Performed By: #### [id number] #### [facility] [address] [place] [address]MGT (RBC) [Entitic mass]26.7 pgLow27.0-34.0[facility] Community HospitalComment on above:Performed By: #### [id number] #### [facility] [address] [place] [address]IWIP (RBC) [Mass/Vol]33.3 g/oOQagtji96.4-36.0[facility] Community HospitalComment on above:Performed By: #### [id number] #### [facility] [address] [place] [address]BYW (RBC) [Entitic vol]80.1 uRYqnmqm08.0-100.0[facility] Community HospitalComment on above:Performed By: #### [id number] #### [facility] [address] [place] [address]Eyeirtlis (Bld) [#/Vol]0.7 E9/LNormal0.2-1.0[facility] Community HospitalComment on above:Performed By: #### [id number] #### [facility] [address] [place] [address]Khgaojxcxwp (Bld) [#/Vol]6.9 E9/LNormal2.0-7.5FFulton County Health CenterComment on above:Performed By: #### [id number] #### [facility] [address], [place] [address]Jbqiqzcxnxc/100 WBC (Bld)75.1 %High36.0-75.0[facility] Community HospitalComment on above:Performed By: #### [id number] #### [facility] [address], [place] [address]Rwtugwju mean volume (Bld) [Entitic vol]7.3 fLNormal6.4-10.8 [facility] Community HospitalComment on above:Performed By: #### [id number] #### [facility] [address] [place] [address]Vgpjdinkm (Bld) [#/Vol]344.0 E9/IXrhbyx714.0-500.0[facility] Community HospitalComment on above:Performed By: #### [id number] #### [facility] [address] [place] [address]MGG (Bld) [#/Vol]5.1 E12/LNormal4.3-5.9[facility] Community HospitalComment on above:Performed By: #### [id number] #### [facility] [address] [place] [address]EKZ corrected for nucl RBC Auto (Bld) [#/Vol]9.1 E9/LNormal 4.0-11.0[facility] Community HospitalComment on above:Performed By: #### [id number] #### [facility] [address] [place] [address]WIHDPIFGPDzlnoqa By: Sheila Tejeda on 64-85-2511Jmpna gap [Moles/Vol]10 mmol/LNormal6 - 16 mEq/LRemisol ChemCalcium [Mass/Vol]9.5 mg/dL Normal8.9 - 11.1 mg/dLRemisol ChemChloride [Moles/Vol]103 mmol/OFgblrr132 - 111 mmol/LRemisol ChemCO2 [Moles/Vol]30 mmol/UXlqurd24 - 31 mmol/LRemisol Chem Creatinine [Mass/Vol]0.9 mg/dLNormal0.5 - 1.3 mg/dLRemisol MxosyKNS144 mL/min/1.73 r5Afqdqm>=59mL/min/1.73 r1Skrqrej ChemGlucose [Mass/Vol]63 mg/dL Zoundm37 - 199 mg/dLRemisol ChemPotassium [Moles/Vol]4.3 mmol/LNormal3.5 - 5.3 mmol/LRemisol ChemSodium [Moles/Vol]139 mmol/TTdgudk030 - 145 mmol/LRemisol Chem Urea nitrogen [Mass/Vol]18 mg/dLNormal5 - 21 mg/dLRemisol ChemUrea nitrogen/Creatinine [Mass ratio]20 mg/caSpisiw31 - 20Remisol ChemCHEMISTRY Ordered By: Tanmay Ornelas on 62-96-4510NfJ7h (Bld) [Mass fraction]7.4 %High<=5.9% [facility] ChemAutoSSCT UPPER EXTREMITY W/O CONTRAST LEFTon 38-86-4052Zptccfhsi Study observation (narrative)[facility] HealthcareHEMATOLOGYOrdered By: SYSTEM SYSTEM on 03-90-5609Tgdgwxmbl/100 WBC (Bld)0.4 %Normal0.0 - 2.0 %Remisol Heme Basophils/Leukocytes Auto (Bld) [Pure # fraction]0.0 E9/LNormal0.0 - 0.2 E9/L Remisol HemeEosinophils (Bld) [#/Vol]0.1 E9/LNormal0.0 - 0.5 E9/LRemisol Heme Eosinophils/100 WBC (Bld)1.2 %Normal0.0 - 8.0 %Remisol HemeErythrocyte distribution width (RBC) [Ratio]15.2 %High10.9 - 14.2 %Remisol HemeHematocrit (Bld) [Volume fraction]40.9 %Iazpqu33.7 - 49.0 %Remisol HemeHemoglobin (Bld) [Mass/Vol]13.6 g/rRJruvzx26.5 - 17.5 gm/dLRemisol HemeLymphocytes (Bld) [#/Vol] 1.5 E9/LNormal1.0 - 4.0 E9/LRemisol HemeLymphocytes/100 WBC (Bld)16.1 %Normal 14.0 - 50.0 %Remisol HemeMCH (RBC) [Entitic mass]26.7 pgLow27.0 - 34.0 pgRemisol HemeMCHC (RBC) [Mass/Vol]33.3 g/hKWrkpyz27.4 - 36.0 gm/dLRemisol HemeMCV (RBC) [Entitic vol]80.1 gRCmsosb93.0 - 100.0 fLRemisol HemeMonocytes (Bld) [#/Vol]0.7 E9/LNormal0.2 - 1.0 E9/LRemisol HemeMonocytes/100 WBC (Bld)7.2 %Normal4.0 - 14.0 %Remisol HemeNeutrophils (Bld) [#/Vol]6.9 E9/LNormal2.0 - 7.5 E9/LRemisol Heme Neutrophils/100 WBC (Bld)75.1 %High36.0 - 75.0 %Remisol HemePlatelet mean volume (Bld) [Entitic vol]7.3 fLNormal6.4 - 10.8 fLRemisol HemePlatelets (Bld) [#/Vol] 344.0 E9/QNdyohp848.0 - 500.0 E9/LRemisol HemeRBC (Bld) [#/Vol]5.1 E12/LNormal 4.3 - 5.9 E12/LRemisol HemeWBC corrected for nucl RBC Auto (Bld) [#/Vol]9.1 E9/L Normal4.0 - 11.0 E9/LRemisol QynvVhpQ3lac 85-06-6406ShM0o (Bld) [Mass fraction] 7.4 %High<=5.9[facility] HospitalComment on above:Performed By: #### [id number] #### [facility] [address] [place] [id number] WITH CULT RFLXon 60-65-6753KOALXHPDX:PRTHR:PT:URINE:ORD:TEST STRIP.AUTOMATED2+AbnormalNegative mg/dLSaint Luke's Hospital CLARITY:TYPE:PT:URINE:NOM:ClearClearSaint Luke's Hospital CLASS:TYPE:PT:URINE COLLECTION METHOD:NOM:*Clean CatchSaint Luke's Hospital COLOR:TYPE:PT:URINE:NOM:AUTOLight-YellowYellowChildren's Mercy NorthlandComment on above: Microscopic readings are only performed on those samples that meet specific criteria set forth by [facility] PH:LSCNC:PT:URINE:QN:TEST STRIP6.55.0 - 9.0[facility] SPECIFIC GRAVITY:RDEN:PT:URINE:QN:TEST STRIP1.0121.005 - 1.030[facility] GLUCOSE:PRTHR:PT:URINE:ORD:TEST STRIPNegativeNegative mg/dLTOOELE VALLEY HOSPITAL Healthcare HEMOGLOBIN:MCNC:PT:URINE:SEMIQN:TEST STRIP.AUTOMATEDNegativeNegative mg/dLTOOELE VALLEY HOSPITAL HealthcareInterpretation and review of laboratory resultsAbMcLaren Lapeer Region KETONES:PRTHR:PT:URINE:ORD:TEST STRIP.AUTOMATEDNegativeNegative mg/dLChildren's Mercy NorthlandLEUKOCYTE ESTERASE:PRTHR:PT:URINE:ORD:TEST STRIP.AUTOMATEDNegative Negative CD:[id number]'s Mercy NorthlandNITRITE:PRTHR:PT:URINE:ORD:TEST STRIP.AUTOMATEDNegativeNegative mg/dLTOOELE VALLEY HOSPITAL Healthcare PROTEIN:PRTHR:PT:URINE:ORD:TEST STRIPNegativeNegative mg/dLTOOELE VALLEY HOSPITAL Healthcare UROBILINOGEN:MCNC:PT:URINE:SEMIQN:TEST STRIPNegativeNegative mg/dLNOPR HealthcareOriginal Ordering Provider: DO Zen AaronEast Cooper Medical CenterUA with Cult Rflxon 52-25-2137Ovtirstvd Ql (U)2+ mg/dLAbnormalNegativePromedica Fostoria Community HospitalComment on above:Performed By: #### [id number] #### [facility] [address], [place] [address]Plsboil (U)ClearNormalClearPromedica Fostoria Community HospitalComment on above:Performed By: #### [id number] #### [facility] [address], [place] [address]Mpipu (U)Light-YellowNormalYUniversity Hospitals Conne[facility] Center Comment on above:Result Comment: Microscopic readings are only performed on those samples that meet specific criteria set forth by [facility].Performed By: #### [id number] #### [facility] [address], [place] [address]Wgystak Ql (U)NegativeNormalNegMain Campus Medical Center Comment on above:Performed By: #### [id number] #### [facility] [address] [place] [address]Lprtxfifro Auto test strip (U) [Mass/Vol]NegativeNormalNegative [facility] HospitalComment on above:Performed By: #### [id number] #### [facility] [address] [place] [address]Aqjggjo Auto test strip Ql (U)NegativeNormalNegMain Campus Medical CenterComment on above:Performed By: #### [id number] #### [facility] [address] [place] [address]Toxhtyicn esterase Auto test strip Ql (U)NegativeNormalNegative [facility] Community HospitalComment on above:Performed By: #### [id number] #### [facility] [address] [place] [address]Wfgkwqi Auto test strip Ql (U)NegativeNormalNegMain Campus Medical CenterComment on above:Performed By: #### [id number] #### [facility] [address] [place] [address]pH (U)6.5 [pH]Invalid Interpretation Code5.0-9.0[facility] HospitalComment on above:Performed By: #### [id number] #### [facility] [address], [place] [address]Lramgjs Ql (U)NegativeNormalNegMain Campus Medical Center Comment on above:Performed By: #### [id number] #### [facility] [address], [place] [address]Qamfeqaw gravity (U) [Rel density]1.012Invalid Interpretation Code1.005-1.030[facility] Community HospitalComment on above:Performed By: #### [id number] #### [facility] [address], [place] [address]Mvoutlztsioc (U) [Mass/Vol]NegativeNormalNegativePromedica Fostoria Community HospitalComment on above:Performed By: #### [id number] #### [facility] [address], [place] [address]Cjvl of Urine collection methodClean CatchNormalPromedica Fostoria Community HospitalComment on above:Performed By: #### [id number] #### [facility] [address], [place] [address]URCRBZICZAEhzqoqz By: SYSTEM SYSTEM on 84-26-1602Adlarkean Ql (U)2+ mg/dLInvalid Interpretation CodeNegativemg/dLCOMMUNITY HOSPITAL – [place] UA Auto SSClarity (U) Clear (04/30/24 1:42 PM)NormalClearFTM UA Auto SSColor (U)Light-Yellow 1 (04/30/24 1:42 PM)NormalYellowCOMMUNITY HOSPITAL – [place] UA Auto SSComment on above:Interpretive Data: Microscopic readings are only performed on those samples that meet specific criteria set forth by [facility].Glucose Ql (U) NegativeNormalNegativemg/dLFT UA Auto [...] - 1.030FT UA Auto SS Urobilinogen (U) [Mass/Vol]NegativeNormalNegativemg/dLCOMMUNITY HOSPITAL – [place] UA Auto SSURINALYSIS Ordered By: Marissa White on 10-46-5776FE Spec DescClean Catch (04/30/24 1:42 PM)NormalCOMMUNITY HOSPITAL – [place] UA Auto SSXR Chest 2 Viewson 38-65-7601LG Chest 2 ViewsExam Date/Time: 04/30/2024 13:59 EST [...] Chava Robert DO Transcribed by: SALVADOR Technologist: [facility] HospitaleGFRon 02-28-0270dMWK286 mL/min/1.73 e4Rpgmml>=59[facility] Community HospitalComment on above:Performed By: #### [id number] #### [facility] [address], [place] [address]DiH5j (Bld) [Mass fraction]on 18-44-8437Npvtjjvaekamoh and review of laboratory resultsNormalQuorum HealthLaboratory - Hematology and Cell countson 07-74-2702QiH1l (Bld) [Mass fraction]7.2 %NOM IbxgtwiewxLkK6h (Bld) [Mass fraction]on 51-38-3526Uokxdxcbhtazfz and review of laboratory resultsNormalQuorum HealthLaboratory - Hematology and Cell countson 34-68-1471LpT2x (Bld) [Mass fraction]7.6 %[facility] HealthcareANA Antinuclear Antibodieson 77-88-3670Rcqnqsetira Abs, IFANegativeNormal.The [facility] Physician GroupComment on above:Result Comment: Negative <1:80 Borderline 1:80 Positive >1:80 ICAP nomenclature: AC-0 For more information about Hep-2 cell patterns use ANApatterns.org, the official website for the International Consensus on Antinuclear Antibody (TONJA) Patterns (ICAP). Performed at: [facility] [id number] Yard Hand: Scott Freedman PhD, Phone: [phone] By: #### PP, ESR, CK, ADDONUAPLUS, CRP, CMP, TSH3, CBC, T4F #### [address] #### ALDOLASE, FRANCISCO,URINE, UPE RAND, SPE, RPR W RFX, FRANCISCO SERUM #### [facility] ,Activated partial thromboplastin time (aPTT) in platelet poor plasma by coagulation aOrdered By: Rajan Moreland on 88-62-9819vACA Coag (PPP) [Time]25.9 s25.1-36.5FMercy Health Allen HospitalComment on above:A hematocrit value greater than 55% may lead to inaccurate results in coagulation testing. Patients having hematocrit values >55% require a special collection tube for coagulation studies. Please contact the laboratory at [phone] for redraw instructions. Alanine aminotransferase [Enzymatic activity/volume] in Serum or PlasmaOrdered By: Rajan Moreland on 18-76-5927HTY [Catalytic activity/Vol]33 U/L7-52OhiohealthComment on above:Performed By: #### PP, ESR, CK, ADDONUAPLUS, CRP, CMP, TSH3, CBC, T4F #### [place] [address] [place] #### ALDOLASE, FRANCISCO,URINE, UPE RAND, SPE, RPR W RFX, FRANCISCO SERUM #### [facility] ,Albumin [Mass/volume] in Serum or Plasma by Bromocresol green (BCG) dye binding methoOrdered By: Rajan Moreland on 22-08-9157Unszvss BCG dye [Mass/Vol]4.6 g/dL 3.5-5.7FMercy Health Allen HospitalAlbumin/Protein.total in 24 hour Urine by ElectrophoresisOrdered By: Rajan Moreland on 92-37-9620Jmrqlzx Elph (24H U) [Mass fraction]31.5 %.OhiohealthAldolaseon 08-16-2023 Aldolase4.0 U/LNormal3.3-10.3The [facility] Physician GroupComment on above: Result Comment: Performed at: [facility] [id number] Yard Hand: Scott Freedman PhD, Phone: [phone] PERFORMED BY: [place] [address] PATHOLOGIST STENOTYPE MACHINE OPERATOR LUZ ELENA MEDINA M.D.Performed By: #### PP, ESR, CK, ADDONUAPLUS, CRP, CMP, TSH3, CBC, T4F #### [address] #### ALDOLASE, FRANCISCO,URINE, UPE RAND, SPE, RPR W RFX, FRANCISCO SERUM #### [facility] ,Alkaline phosphatase [Enzymatic activity/volume] in Serum or PlasmaOrdered By: Rajan Moreland on 18-19-2027CPP [Catalytic activity/Vol]61 U/U26-576UvitczudaOhiohealthComment on above:Performed By: #### PP, ESR, CK, ADDONUAPLUS, CRP, CMP, TSH3, CBC, T4F #### [facility] [address] [place] [address] [place] #### ALDOLASE, FRANCISCO,URINE, UPE RAND, SPE, RPR W RFX, FRANCISCO SERUM #### [facility] ,Antithyroglobulin Abon 53-76-6452Tventhdhrwwucrddp Ab<1.2Ctteig3.0-0.9The [facility] Physician GroupComment on above:Result Comment: Thyroglobulin Antibody measured by coin4ce [place] Methodology It should be noted that the presence of thyroglobulin antibodies may not be pathogenic nor diagnostic, especially at very low levels. The assay airborne operations manager has found that four percent of individuals without evidence of thyroid disease or autoimmunity will have positive TgAb levels up to 4 IU/mL. Performed at: [facility] [id number] Yard Hand: Scott Freedman PhD, Phone: [phone] By: #### PP, ESR, CK, ADDONUAPLUS, CRP, CMP, TSH3, CBC, T4F #### [address] #### ALDOLASE, FRANCISCO,URINE, UPE RAND, SPE, RPR W RFX, FRANCISCO SERUM #### [facility] ,Aspartate aminotransferase [Enzymatic activity/volume] in Serum or Plasma Ordered By: Rajan Moreland on 87-20-2464NRM [Catalytic activity/Vol]22 U/L13-39 OhiohealthComment on above:Performed By: #### PP, ESR, CK, ADDONUAPLUS, CRP, CMP, TSH3, CBC, T4F #### [address] #### ALDOLASE, FRANCISCO,URINE, UPE RAND, SPE, RPR W RFX, FRANCISCO SERUM #### [facility] ,Automated basophil %Ordered By: Rajan Moreland on 14-42-3763Wkbrtpwes/100 WBC (Bld)0.5 %.OhiohealthComment on above:Performed By: #### PP, ESR, CK, ADDONUAPLUS, CRP, CMP, TSH3, CBC, T4F #### [place] [address] [place] #### ALDOLASE, FRANCISCO,URINE, UPE RAND, SPE, RPR W RFX, FRANCISCO SERUM #### [facility] ,Automated basophil countOrdered By: Rajan Moreland on 77-09-8819Zrwtqpbqp (Bld) [#/Vol]0.0 10*3/uL0.0-0.2FMercy Health Allen HospitalComment on above: Performed By: #### PP, ESR, CK, ADDONUAPLUS, CRP, CMP, TSH3, CBC, T4F #### [address] #### ALDOLASE, FRANCISCO,URINE, UPE RAND, SPE, RPR W RFX, FRANCISCO SERUM #### [facility] ,Automated blood monocyte countOrdered By: Rajan Pascualrow on 85-28-2862Hwnqvrcyi (Bld) [#/Vol]0.5 10*3/uL0.0-0.8OhiohealthComment on above:Performed By: #### PP, ESR, CK, ADDONUAPLUS, CRP, CMP, TSH3, CBC, T4F #### [address] #### ALDOLASE, FRANCISCO,URINE, UPE RAND, SPE, RPR W RFX, FRANCISCO SERUM #### [facility] ,Automated eosinophil %Ordered By: Rajan Moreland on 96-39-6291Kxupjnfjoma/100 WBC (Bld)1.1 %.OhiohealthComment on above:Performed By: #### PP, ESR, CK, ADDONUAPLUS, CRP, CMP, TSH3, CBC, T4F #### [address] #### ALDOLASE, FRANCISCO,URINE, UPE RAND, SPE, RPR W RFX, FRANCISCO SERUM #### [facility] ,Automated eosinophil countOrdered By: Rajan Moreland on 05-44-6523Tbcjxfdzlgl (Bld) [#/Vol]0.1 10*3/uL0.0-0.45OhiohealthComment on above:Performed By: #### PP, ESR, CK, ADDONUAPLUS, CRP, CMP, TSH3, CBC, T4F #### [place] [address] [place] #### ALDOLASE, FRANCISCO,URINE, UPE RAND, SPE, RPR W RFX, FRANCISCO SERUM #### [facility] ,Automated monocyte %Ordered By: Rajan Moreland on 70-53-6524Sncwqcawn/100 WBC (Bld)5.8 %.OhiohealthComment on above:Performed By: #### PP, ESR, CK, ADDONUAPLUS, CRP, CMP, TSH3, CBC, T4F #### [facility] [address] [place] [address] #### ALDOLASE, FRANCISCO,URINE, UPE RAND, SPE, RPR W RFX, FRANCISCO SERUM #### [facility] ,Automated neutrophil %Ordered By: Rajan Moreland on 32-12-3713Faukncobbey/100 WBC (Bld)79.8 %.OhiohealthComment on above:Performed By: #### PP, ESR, CK, ADDONUAPLUS, CRP, CMP, TSH3, CBC, T4F #### [address] #### ALDOLASE, FRANCISCO,URINE, UPE RAND, SPE, RPR W RFX, FRANCISCO SERUM #### [facility] ,Bacteria [Presence] in Urine by AutomatedOrdered By: Rajan Moreland on 00-12-7110Bejmcdbq Auto Ql (U)None seen [HPF]None SeenOhiohealthBilirubin Test strip Ql (U)Ordered By: Rajan Moreland on 08-16-2023 Bilirubin Ql (U)NegativeNegativeOhiohealthBilirubin.total [Mass/volume] in Serum or PlasmaOrdered By: Rajan Moreland on 08-16-2023 Bilirubin [Mass/Vol]1.2 mg/dL0.3-1.0OhiohealthCommary free bed rehabilitation hospital on above:Performed By: #### PP, ESR, CK, ADDONUAPLUS, CRP, CMP, TSH3, CBC, T4F #### [facility] [address] [place] [address] [place] #### ALDOLASE, FRANCISCO,URINE, UPE RAND, SPE, RPR W RFX, FRANCISCO SERUM #### [facility] ,C reactive protein [Mass/volume] in Serum or PlasmaOrdered By: Rajan Moreland on 22-97-8697DIM [Mass/Vol]< 0.5 mg/dL0.0-0.5FMercy Health Allen HospitalC- Reactive Proteinon 23-36-9716SPC [Mass/Vol]mg/LNormal0.0-0.5The [facility] Physician GroupComment on above:Performed By: #### PP, ESR, CK, ADDONUAPLUS, CRP, CMP, TSH3, CBC, T4F #### [facility] [address] [place] [address] #### ALDOLASE, FRANCISCO,URINE, UPE RAND, SPE, RPR W RFX, FRANCISCO SERUM #### [facility] ,CT biopsyOrdered By: Rajan Moreland on 59-15-5699LJ biopsy4.0 U/L3.3-10.3 OhiohealthComment on above:Performed at: [facility] Director: Scott Freedman PhD, Phone: [phone] [Mass/volume] in Serum or PlasmaOrdered By: Rajan Moreland on 13-76-5957Zbfneck [Mass/Vol]9.9 mg/dL8.6-10.3FMercy Health Allen HospitalComment on above:Performed By: #### PP, ESR, CK, ADDONUAPLUS, CRP, CMP, TSH3, CBC, T4F #### [place] [address] [place] #### ALDOLASE, FRANCISCO,URINE, UPE RAND, SPE, RPR W RFX, FRANCISCO SERUM #### [facility] ,Carbon dioxide, total [Moles/volume] in Serum or PlasmaOrdered By: Rajan Moreland on 98-25-9927PD0 [Moles/Vol]29.6 mmol/L21.0-31.0OhiohealthComment on above:Performed By: #### PP, ESR, CK, ADDONUAPLUS, CRP, CMP, TSH3, CBC, T4F #### [place] [address] [place] #### ALDOLASE, FRANCISCO,URINE, UPE RAND, SPE, RPR W RFX, FRANCISCO SERUM #### [facility] ,Chloride [Moles/volume] in Serum or PlasmaOrdered By: Rajan Moreland on 89-15-2914Vvgidfyu [Moles/Vol]101 mmol/C45-074XddrezjgzOhiohealth Comment on above:Performed By: #### PP, ESR, CK, ADDONUAPLUS, CRP, CMP, TSH3, CBC, T4F #### [facility] [address] [place] [address] #### ALDOLASE, FRANCISCO,URINE, UPE RAND, SPE, RPR W RFX, FRANCISCO SERUM #### [facility] ,Chromatin Antibodyon 26-16-4127Fchuvnmax Antibody0.7Emwszx0.0-0.9The [facility] Physician GroupComment on above:Result Comment: Performed at: [facility] [id number] Yard Hand: Scott Freedman PhD, Phone: [phone] PERFORMED BY: [place] [address] PATHOLOGIST STENOTYPE MACHINE OPERATOR LUZ ELENA MEDINA M.D.Performed By: #### PP, ESR, CK, ADDONUAPLUS, CRP, CMP, TSH3, CBC, T4F #### [address] #### ALDOLASE, FRANCISCO,URINE, UPE RAND, SPE, RPR W RFX, FRANCISCO SERUM #### [facility] ,Coagulation Profileon 29-34-9471bIIP Coag (Bld) [Time]25.9 nTpgven68.1-36.5The [facility] Physician GroupComment on above:Result Comment: A hematocrit value greater than 55% may lead to inaccurate results in coagulation testing. Patients having hematocrit values >55% require a special collection tube for coagulation studies. Please contact the laboratory at [phone] for redraw instructions. PERFORMED BY: [place] [address] PATHOLOGIST STENOTYPE MACHINE OPERATOR LUZ ELENA MEDINA M.D.Performed By: #### PP, ESR, CK, ADDONUAPLUS, CRP, CMP, TSH3, CBC, T4F #### [address] #### ALDOLASE, FRANCISCO,URINE, UPE RAND, SPE, RPR W RFX, FRANCISCO SERUM #### [facility] ,Color of Urine by AutoOrdered By: Rajan Moreland on 19-17-1428Yeeue (U)Yellow [facility] Hospital, AvonComment on above:Order Comment: Name Collection Type:: Clean-Voided MidstreamPerformed By: #### PP, ESR, CK, ADDONUAPLUS, CRP, CMP, TSH3, CBC, T4F #### [address] #### ALDOLASE, FRANCISCO,URINE, UPE RAND, SPE, RPR W RFX, FRANCISCO SERUM #### [facility] ,Complement C3on 73-51-6134Dhcjtfarmi C3171 mg/yVRqmi57-753Hoz [facility] Physician GroupComment on above:Result Comment: Performed at: [facility] [id number] Yard Hand: Scott Freedman PhD, Phone: [phone] By: #### PP, ESR, CK, ADDONUAPLUS, CRP, CMP, TSH3, CBC, T4F #### [facility] [address] [place] [address] [place] #### ALDOLASE, FRANCISCO,URINE, UPE RAND, SPE, RPR W RFX, FRANCISCO SERUM #### [facility] ,Complement C4on 37-58-0893Yhnnfgvxne C427 mg/pCIgqnhc28-67Uci [facility] Physician GroupComment on above:Performed By: #### PP, ESR, CK, ADDONUAPLUS, CRP, CMP, TSH3, CBC, T4F #### [address] #### ALDOLASE, FRANCISCO,URINE, UPE RAND, SPE, RPR W RFX, FRANCISCO SERUM #### [facility] ,Complement Total (CH50)on 63-59-3296Srivkqtjek Total (CH50)>60Normal>41The [facility] Physician GroupComment on above:Result Comment: Age Male [...] determine out of range values. Performed at: [facility] [id number] Yard Hand: Scott Freedman PhD, Phone: [phone] PERFORMED BY: [place] [address] PATHOLOGIST STENOTYPE MACHINE OPERATOR LUZ ELENA MEDINA M.D.Performed By: #### PP, ESR, CK, ADDONUAPLUS, CRP, CMP, TSH3, CBC, T4F #### [facility] [address] [place] [address] #### ALDOLASE, FRANCISCO,URINE, UPE RAND, SPE, RPR W RFX, FRANCISCO SERUM #### [facility] ,Complete Blood Count Auto Diffon 67-40-8036Clua Corpuscular HGB Conc33.3 g/dL Taiblx99.5-35.6The [facility] Physician [facility] HospitalComment on above:Performed By: #### PP, ESR, CK, ADDONUAPLUS, CRP, CMP, TSH3, CBC, T4F #### [facility] [address] [place] [address] #### ALDOLASE, FRANCISCO,URINE, UPE RAND, SPE, RPR W RFX, FRANCISCO SERUM #### [facility] ,NRBC%0.1 /100{WBC}Normal0-0.5The [facility] Physician GroupComment on above: Performed By: #### PP, ESR, CK, ADDONUAPLUS, CRP, CMP, TSH3, CBC, T4F #### [address] #### ALDOLASE, FRANCISCO,URINE, UPE RAND, SPE, RPR W RFX, FRANCISCO SERUM #### [facility] ,Comprehensive Metabolic Panelon 58-51-4793Vidsdlz [Mass/Vol]4.6 g/dLNormal 3.5-5.7The [facility] Physician GroupComment on above:Performed By: #### PP, ESR, CK, ADDONUAPLUS, CRP, CMP, TSH3, CBC, T4F #### [address] #### ALDOLASE, FRANCISCO,URINE, UPE RAND, SPE, RPR W RFX, FRANCISCO SERUM #### [facility] ,GFR/1.73 sq M.predicted MDRD (S/P/Bld) [Vol rate/Area]mL/min/{1.73_m2}NormalThe [facility] Physician [facility] HospitalComment on above:Performed By: #### PP, ESR, CK, ADDONUAPLUS, CRP, CMP, TSH3, CBC, T4F #### [address] #### ALDOLASE, FRANCISCO,URINE, UPE RAND, SPE, RPR W RFX, FRANCISCO SERUM #### [facility] ,Creatine kinase [Enzymatic activity/volume] in Serum or PlasmaOrdered By: Rajan Moreland on 69-26-6407NH [Catalytic activity/Vol]128 U/D91-756HehjbkssrOhiohealthComment on above:Result Comment: PERFORMED BY: [place] [address] PATHOLOGIST STENOTYPE MACHINE OPERATOR LUZ ELENA MEDINA M.D.Performed By: #### PP, ESR, CK, ADDONUAPLUS, CRP, CMP, TSH3, CBC, T4F #### [address] [place] [address] [place] #### ALDOLASE, FRANCISCO,URINE, UPE RAND, SPE, RPR W RFX, FRANCISCO SERUM #### [facility] ,Creatinine [Mass/volume] in Serum or PlasmaOrdered By: Rajan Moreland on 18-79-0650Fpzzfpnvrd [Mass/Vol]0.78 mg/dL0.70-1.30OhiohealthComment on above:Performed By: #### PP, ESR, CK, ADDONUAPLUS, CRP, CMP, TSH3, CBC, T4F #### [address] #### ALDOLASE, FRANCISCO,URINE, UPE RAND, SPE, RPR W RFX, FRANCISCO SERUM #### [facility] ,Dipstick and Microscopicon 72-09-0827Hgemvndgpc (U)ClearNormalClearThe [facility] Physician GroupComment on above:Order Comment: Name Collection Type:: Clean-Voided MidstreamPerformed By: #### PP, ESR, CK, ADDONUAPLUS, CRP, CMP, TSH3, CBC, T4F #### [address] #### ALDOLASE, FRANCISCO,URINE, UPE RAND, SPE, RPR W RFX, FRANCISCO SERUM #### [facility] ,Bacteria,UrineNone SeenNormalNone SeenThe [facility] Physician GroupComment on above:Order Comment: Name Collection Type:: Clean-Voided MidstreamPerformed By: #### PP, ESR, CK, ADDONUAPLUS, CRP, CMP, TSH3, CBC, T4F #### [facility] [address] [place] [address] #### ALDOLASE, FRANCISCO,URINE, UPE RAND, SPE, RPR W RFX, FRANCISCO SERUM #### [facility] ,Bilirubin,UrineNegativeNormalNegativeThe [facility] Physician GroupComment on above:Order Comment: Name Collection Type:: Clean-Voided MidstreamPerformed By: #### PP, ESR, CK, ADDONUAPLUS, CRP, CMP, TSH3, CBC, T4F #### [address] #### ALDOLASE, FRANCISCO,URINE, UPE RAND, SPE, RPR W RFX, FRANCISCO SERUM #### [facility] ,Glucose Ql (U)500 mg/dLHighNoSampson Regional Medical Center Physician GroupComment on above: Order Comment: Name Collection Type:: Clean-Voided MidstreamPerformed By: #### PP, ESR, CK, ADDONUAPLUS, CRP, CMP, TSH3, CBC, T4F #### [address] #### ALDOLASE, FRANCISCO,URINE, UPE RAND, SPE, RPR W RFX, FRANCISCO SERUM #### [facility] ,Hyaline Casts,UrineNone SeenNormal0-8The [facility] Physician GroupComment on above:Order Comment: Name Collection Type:: Clean-Voided MidstreamResult Comment: PERFORMED BY: [place] [address] PATHOLOGIST STENOTYPE MACHINE OPERATOR LUZ ELENA MEDINA M.D.Performed By: #### PP, ESR, CK, ADDONUAPLUS, CRP, CMP, TSH3, CBC, T4F #### [address] #### ALDOLASE, FRANCISCO,URINE, UPE RAND, SPE, RPR W RFX, FRANCISCO SERUM #### [facility] ,Ketones Ql (U)NegativeNormalNegativeThe [facility] Physician [facility] HospitalComment on above:Order Comment: Name Collection Type:: Clean-Voided MidstreamPerformed By: #### PP, ESR, CK, ADDONUAPLUS, CRP, CMP, TSH3, CBC, T4F #### [address] #### ALDOLASE, FRANCISCO,URINE, UPE RAND, SPE, RPR W RFX, FRANCISCO SERUM #### [facility] ,Leukocyte esterase Test strip Ql (U)NegativeNormalNegativeThe [facility] Physician GroupComment on above:Order Comment: Name Collection Type:: Clean- Voided MidstreamPerformed By: #### PP, ESR, CK, ADDONUAPLUS, CRP, CMP, TSH3, CBC, T4F #### [address] #### ALDOLASE, FRANCISCO,URINE, UPE RAND, SPE, RPR W RFX, FRANCISCO SERUM #### [facility] ,Nitrite,UrineNegativeNormalNegativeThe [facility] Physician GroupComment on above:Order Comment: Name Collection Type:: Clean-Voided MidstreamPerformed By: #### PP, ESR, CK, ADDONUAPLUS, CRP, CMP, TSH3, CBC, T4F #### [address] #### ALDOLASE, FRANCISCO,URINE, UPE RAND, SPE, RPR W RFX, FRANCISCO SERUM #### [facility] ,Occult Blood,UrineNegativeNormalNegativeThe [facility] Physician GroupComment on above:Order Comment: Name Collection Type:: Clean-Voided MidstreamPerformed By: #### PP, ESR, CK, ADDONUAPLUS, CRP, CMP, TSH3, CBC, T4F #### [address] #### ALDOLASE, FRANCISCO,URINE, UPE RAND, SPE, RPR W RFX, FRANCISCO SERUM #### [facility] ,Protein,UrineNegativeNormalNegativeThe [facility] Physician GroupComment on above:Order Comment: Name Collection Type:: Clean-Voided MidstreamPerformed By: #### PP, ESR, CK, ADDONUAPLUS, CRP, CMP, TSH3, CBC, T4F #### [address] #### ALDOLASE, FRANCISCO,URINE, UPE RAND, SPE, RPR W RFX, FRANCISCO SERUM #### [facility] ,RBC LM.HPF (Urine sed) [#/Area]0 /[HPF]Normal0-4The [facility]ician Group Comment on above:Order Comment: Name Collection Type:: Clean-Voided Midstream Performed By: #### PP, ESR, CK, ADDONUAPLUS, CRP, CMP, TSH3, CBC, T4F #### [address] #### ALDOLASE, FRANCISCO,URINE, UPE RAND, SPE, RPR W RFX, FRANCISCO SERUM #### [facility] ,Specificy [place],Urine1.389Yuvovg8.001-1.030The [facility] Physician Group Comment on above:Order Comment: Name Collection Type:: Clean-Voided Midstream Performed By: #### PP, ESR, CK, ADDONUAPLUS, CRP, CMP, TSH3, CBC, T4F #### [address] #### ALDOLASE, FRANCISCO,URINE, UPE RAND, SPE, RPR W RFX, FRANCISCO SERUM #### [facility] ,Squamous Epithelial Cell,UrineNone SeenNormal0-2The [facility]ician Group Comment on above:Order Comment: Name Collection Type:: Clean-Voided Midstream Performed By: #### PP, ESR, CK, ADDONUAPLUS, CRP, CMP, TSH3, CBC, T4F #### [address] #### ALDOLASE, FRANCISCO,URINE, UPE RAND, SPE, RPR W RFX, FRANCISCO SERUM #### [facility] ,Urobilinogen,UrineNormalNormalNormalThe [facility] Physician GroupComment on above:Order Comment: Name Collection Type:: Clean-Voided MidstreamPerformed By: #### PP, ESR, CK, ADDONUAPLUS, CRP, CMP, TSH3, CBC, T4F #### [address] #### ALDOLASE, FRANCISCO,URINE, UPE RAND, SPE, RPR W RFX, FRANCISCO SERUM #### [facility] ,WBC LM.HPF (Urine sed) [#/Area]0 /[HPF]Normal0-4The [facility]ician Group Comment on above:Order Comment: Name Collection Type:: Clean-Voided Midstream Performed By: #### PP, ESR, CK, ADDONUAPLUS, CRP, CMP, TSH3, CBC, T4F #### [address] #### ALDOLASE, FRANCISCO,URINE, UPE RAND, SPE, RPR W RFX, FRANCISCO SERUM #### [facility] ,Erythrocyte Sedimentation Rateon 23-35-9827ASO (Bld) [Velocity]12 mm/hNormal 0-19The [facility] Physician GroupComment on above:Result Comment: PERFORMED BY: [place] [address] PATHOLOGIST STENOTYPE MACHINE OPERATOR LUZ ELENA MEDINA M.D.Performed By: #### PP, ESR, CK, ADDONUAPLUS, CRP, CMP, TSH3, CBC, T4F #### [address] #### ALDOLASE, FRANCISCO,URINE, UPE RAND, SPE, RPR W RFX, FRANCISCO SERUM #### [facility] ,Erythrocyte distribution width [Ratio] by Automated countOrdered By: Rajan Moreland on 83-24-9414Cdagenoqdvp distribution width (RBC) [Ratio]13.5 %12.0-14.8 OhiohealthComment on above:Performed By: #### PP, ESR, CK, ADDONUAPLUS, CRP, CMP, TSH3, CBC, T4F #### [address] #### ALDOLASE, FRANCISCO,URINE, UPE RAND, SPE, RPR W RFX, FRANCISCO SERUM #### [facility] ,Erythrocyte sedimentation rate by Photometric methodOrdered By: Rajan Moreland on 93-94-8141RNQ Photometric method (Bld) [Velocity]12 mm/hr0-19OhiohealthErythrocytes [#/area] in Urine sediment by Automated countOrdered By: Rajan Moreland on 56-74-5031FOV Auto (Urine sed) [#/Area]0-1 [HPF]0-4FMercy Health Allen HospitalErythrocytes [#/volume] in Blood by Automated countOrdered By: Rajan Moreland on 19-65-2650ZOJ (Bld) [#/Vol]5.36 10*6/uL3.90-5.60OhiohealthComment on above:Performed By: #### PP, ESR, CK, ADDONUAPLUS, CRP, CMP, TSH3, CBC, T4F #### [facility] [address] [place] [address] #### ALDOLASE, FRANCISCO,URINE, UPE RAND, SPE, RPR W RFX, FRANCISCO SERUM #### [facility] ,Gamma globulin/Protein.total in 24 hour Urine by ElectrophoresisOrdered By: Rajan Moreland on 09-44-8430Ayoqx globulin Elph (24H U) [Mass fraction]20.2 %. OhiohealthGlucose [Mass/volume] in Serum or PlasmaOrdered By: Rajan Moreland on [id number] [Mass/Vol]280 mg/fE34-670UlcqnflxqOhiohealthComment on above:ADA recommended reference rangeRandom Glucose Reference [...] ADDONUAPLUS, CRP, CMP, TSH3, CBC, T4F #### [facility] [address] [place] [address] #### ALDOLASE, FRANCISCO,URINE, UPE RAND, SPE, RPR W RFX, FRANCISCO SERUM #### [facility] ,Hematocrit [Volume Fraction] of Blood by Automated countOrdered By: Rajan Moreland on 02-28-3533Whojqsdyxi (Bld) [Volume fraction]43.6 %38.8-50.0OhiohealthComment on above:Performed By: #### PP, ESR, CK, ADDONUAPLUS, CRP, CMP, TSH3, CBC, T4F #### [facility] [address] [place] [address] #### ALDOLASE, FRANCISCO,URINE, UPE RAND, SPE, RPR W RFX, FRANCISCO SERUM #### [facility] ,Hemoglobin [Mass/volume] in BloodOrdered By: Rajan Moreland on 08-16-2023 Hemoglobin (Bld) [Mass/Vol]14.6 g/dL13.0-17.0[facility] Comment on above:Performed By: #### PP, ESR, CK, ADDONUAPLUS, CRP, CMP, TSH3, CBC, T4F #### [facility] [address] [place] [address] #### ALDOLASE, FRANCISCO,URINE, UPE RAND, SPE, RPR W RFX, FRANCISCO SERUM #### [facility] ,INR in Platelet poor plasma by Coagulation assayOrdered By: Rajan Moreland on [id number] Coag (PPP) [Relative time]0.9 {INR}OhiohealthComment on above:INR Therapeutic Range A) Pre- and [...] ADDONUAPLUS, CRP, CMP, TSH3, CBC, T4F #### [facility] [address] #### ALDOLASE, FRANCISCO,URINE, UPE RAND, SPE, RPR W RFX, FRANCISCO SERUM #### [facility] ,IgA [Mass/volume] in Serum or PlasmaOrdered By: Rajan Moreland on 69-24-5369FfR [Mass/Vol]239 mg/dD79-256GjehpkfcjOhiohealthIgG [Mass/volume] in Serum or PlasmaOrdered By: Rajan Moreland on 95-51-8453NfF [Mass/Vol]1196 mg/dL 603-1613OhiohealthIgM [Mass/volume] in Serum or Plasma Ordered By: Rajan Moreland on 63-76-6423EyP [Mass/Vol]141 mg/kK23-052PfgxcqekcOhiohealthComment on above:Performed at: [facility] [id number] Director: Scott Freedman PhD, Phone: [phone] for UrineOrdered By: Rajan Moreland on 08-16-2023 Interpretation Immunofixation (U) [Interp]See comment.OhiohealthComment on above:No monoclonality detected.Performed at: [facility] [id number] Director: Scott Freedman PhD, Phone: [phone], (FRANCISCO), Urineon 66-53-8322Iabjjnhlaeqevc, (FRANCISCO), UrineNormal.The [facility] Physician GroupComment on above:Result Comment: No monoclonality detected. Performed at: [facility] [address] [id number] Yard Hand: Scott Freedman PhD, Phone: [phone] By: #### PP, ESR, CK, ADDONUAPLUS, CRP, CMP, TSH3, CBC, T4F #### [address] #### ALDOLASE, FRANCISCO,URINE, UPE RAND, SPE, RPR W RFX, FRANCISCO SERUM #### [facility] ,Immunofixation,Serumon 02-86-3435Ufbzdhmhtliqot, SerumNormal.The [facility] Physician GroupComment on above:Result Comment: No monoclonality detected. Performed By: #### PP, ESR, CK, ADDONUAPLUS, CRP, CMP, TSH3, CBC, T4F #### [address] #### ALDOLASE, FRANCISCO,URINE, UPE RAND, SPE, RPR W RFX, FRANCISCO SERUM #### [facility] ,Immunoglobulin A, Gumxw651 mg/vAJnerck28-175Mif [facility] Comment on above:Performed By: #### PP, ESR, CK, ADDONUAPLUS, CRP, CMP, TSH3, CBC, T4F #### [address] #### ALDOLASE, FRANCISCO,URINE, UPE RAND, SPE, RPR W RFX, FRANCISCO SERUM #### [facility] ,Immunoglobulin G1196 mg/cEPstici872-9863Hvc [facility] Physician GroupComment on above:Performed By: #### PP, ESR, CK, ADDONUAPLUS, CRP, CMP, TSH3, CBC, T4F #### [facility] [address] [place] [address] [place] #### ALDOLASE, FRANCISCO,URINE, UPE RAND, SPE, RPR W RFX, FRANCISCO SERUM #### [facility] ,Immunoglobulin M, Tazsq651 mg/mXFaaxpj70-736Phq [facility] Comment on above:Result Comment: Performed at: - [facility] [address] [id number] Yard Hand: Scott Freedman PhD, Phone: [phone] By: #### PP, ESR, CK, ADDONUAPLUS, CRP, CMP, TSH3, CBC, T4F #### [facility] [address] [place] [address] #### ALDOLASE, FRANCISCO,URINE, UPE RAND, SPE, RPR W RFX, FRANCISCO SERUM #### [facility] ,Ketones Auto test strip (U) [Mass/Vol]Ordered By: Rajan Moreland on 08-16-2023 Ketones (U) [Mass/Vol]NegativeNegativeOhiohealth Laboratory - UrinalysisOrdered By: Rajan Moreland on 11-54-8198Pqrduyd casts LM Ql (Urine sed)None seen [LPF]0-8OhiohealthLeukocytes [#/area] in Urine sediment by Automated countOrdered By: Rajan Moreland on 80-75-6606ZPO Auto (Urine sed) [#/Area]0-1 [HPF]0-4FMercy Health Allen HospitalLeukocytes [#/volume] corrected for nucleated erythrocytes in Blood by Automated counOrdered By: Rajan Moreland on 06-07-8570TFM corrected for nucl RBC Auto (Bld) [#/Vol]8.1 10*3/uL4.1-10.5FMercy Health Allen Hospital Leukocytes [#/volume] in Blood by Automated countOrdered By: Rajan Moreland on 48-52-0492SGE (Bld) [#/Vol]8.1 10*3/uL4.1-10.5FMercy Health Allen Hospital Comment on above:Performed By: #### PP, ESR, CK, ADDONUAPLUS, CRP, CMP, TSH3, CBC, T4F #### [facility] [address] [place] [address] [place] #### ALDOLASE, FRANCISCO,URINE, UPE RAND, SPE, RPR W RFX, FRANCISCO SERUM #### [facility] ,Lupus Anticoagulant Compon 73-22-5352Opwaop Prothrombin Time (dPt)32.7Normal 0.0-47.6The [facility] Physician GroupComment on above:Performed By: #### LUPANTCOAG #### [facility] ,dPT Confirm Ratio1.58Pffrfm0.00-1.34The [facility] Hospital Physician GroupComment on above:Performed By: #### LUPANTCOAG #### [facility] ,DRVVT Lupus31.5Kekmkb0.0-47.0The [facility] Hospital Physician GroupComment on above: Performed By: #### LUPANTCOAG #### [facility] ,InterpretationComment:Normal.The [facility] Physician GroupComment on above: Result Comment: No lupus anticoagulant was detected. Performed at: [facility] [id number] Yard Hand: Blane Frazier MD, Phone: [phone] PERFORMED BY: [address] [address] PATHOLOGIST STENOTYPE MACHINE OPERATOR LUZ ELENA MEDINA M.D.Performed By: #### LUPANTCOAG #### [facility] ,PTT-LA28.7Dlkkak3.0-43.5The [facility] Physician GroupComment on above:Performed By: #### LUPANTCOAG #### [facility] ,Thrombin Time18.0Byjekf0.0-23.0The [facility] Physician GroupComment on above: Performed By: #### LUPANTCOAG #### [facility] ,Lupus anticoagulant [Interpretation] in Platelet poor plasmaOrdered By: Rajan Moreland on 25-42-2258Exmig anticoagulant (PPP) [Interp]Comment:.OhiohealthComment on above:No lupus anticoagulant was detected.Performed at: [facility] [address] [id number] Director: Blane Frazier MD, Phone: [phone] [#/volume] in Blood by Automated countOrdered By: Rajan Moreland on 08-16-2023 Lymphocytes (Bld) [#/Vol]1.0 10*3/uL1.00-4.8[facility] Comment on above:Performed By: #### PP, ESR, CK, ADDONUAPLUS, CRP, CMP, TSH3, CBC, T4F #### [facility] [address] [place] [address] [place] #### ALDOLASE, FRANCISCO,URINE, UPE RAND, SPE, RPR W RFX, FRANCISCO SERUM #### [facility] ,Lymphocytes/100 leukocytes in Blood by Automated countOrdered By: Rajan Moreland on 99-85-1326Srlxbossdts/100 WBC (Bld)12.8 %.OhiohealthComment on above:Performed By: #### PP, ESR, CK, ADDONUAPLUS, CRP, CMP, TSH3, CBC, T4F #### [facility] [address] [place] [address] [place] #### ALDOLASE, FRANCISCO,URINE, UPE RAND, SPE, RPR W RFX, FRANCISCO SERUM #### [facility] ,MCH [Entitic mass] by Automated countOrdered By: Rajan Moreland on 08-16-2023 MCH (RBC) [Entitic mass]27.1 pg27.5-35.2FMercy Health Allen HospitalComment on above:Performed By: #### PP, ESR, CK, ADDONUAPLUS, CRP, CMP, TSH3, CBC, T4F #### [place] [address] [place] #### ALDOLASE, FRANCISCO,URINE, UPE RAND, SPE, RPR W RFX, FRANCISCO SERUM #### [facility] ,MCHC Auto (RBC) [Mass/Vol]Ordered By: Rajan Moreland on 35-70-9913DPDD (RBC) [Mass/Vol]33.3 g/dL32.5-35.6FMercy Health Allen HospitalMCV [Entitic volume] by Automated countOrdered By: Rajan Moreland on 39-54-4324RQM (RBC) [Entitic vol]81.4 fL83.5-101OhiohealthComment on above: Performed By: #### PP, ESR, CK, ADDONUAPLUS, CRP, CMP, TSH3, CBC, T4F #### [address] #### ALDOLASE, FRANCISCO,URINE, UPE RAND, SPE, RPR W RFX, FRANCISCO SERUM #### [facility] ,Neutrophils [#/volume] in Blood by Automated countOrdered By: Rajan Moreland on 06-78-7509Rzzgslwlfsd (Bld) [#/Vol]6.5 10*3/uL1.8-7.7FMercy Health Allen HospitalComment on above:Performed By: #### PP, ESR, CK, ADDONUAPLUS, CRP, CMP, TSH3, CBC, T4F #### [facility] [address] [place] [address] [place] #### ALDOLASE, FRANCISCO,URINE, UPE RAND, SPE, RPR W RFX, FRANCISCO SERUM #### [facility] ,Nitrite Test strip Ql (U)Ordered By: Rajan Moreland on 77-99-0885Lgxizin Ql (U) NegativeNegativeOhiohealthNo Panel InformationOrdered By: Rajan Pascualrow on 68-30-8671Rphxjomux GFR (CKD-EPI)> 60.0 mL/MinOhiohealthPharmacy Creatinine Clearance (ChemN/[facility] AdministrationProtein Electrophoresis M-SpikeNot observed g/dLNot Observed OhiohealthProtein Electrophoresis NoteSee comment. OhiohealthComment on above:Protein electrophoresis scan will follow via computer,mail, or measurement and sensing technician delivery.Serum ImmunofixationSee comment.OhiohealthComment on above:No monoclonality detected.Total Complement (CH50)>60 U/mL>41[facility] Comment on above:Age Male Female 1 - [...] to determine out of range values.Performed at: [address] [id number] Director: Scott Freedman PhD, Phone: [phone] Random Prot Electrophor NoteSee comment.[facility] Comment on above:Protein electrophoresis scan will follow via computer,mail, or measurement and sensing technician delivery.Performed at: [address] [id number] Director: Scott Freedman PhD, Phone: [phone] erythrocytes [Presence] in Blood by Automated countOrdered By: Rajan Moreland on 75-87-4952Ynmtihbel RBC Auto Ql (Bld)0.1 /100{WBC}0-0.5FMercy Health Allen HospitalPlatelet mean volume [Entitic volume] in Blood by Automated count Ordered By: Rajan Moreland on 54-98-1544Puxxvjyn mean volume (Bld) [Entitic vol] 8.1 fL6.6-10.1FMercy Health Allen HospitalComment on above:Performed By: #### PP, ESR, CK, ADDONUAPLUS, CRP, CMP, TSH3, CBC, T4F #### [facility] [address] #### ALDOLASE, FRANCISCO,URINE, UPE RAND, SPE, RPR W RFX, FRANCISCO SERUM #### [facility] ,Platelet poor plasma ratio of lupus anticoagulant-sensitive activated partial thromboOrdered By: Rajan Moreland on 85-90-5478nKCK.lupus sensitive.excess phospholipid actual/normal Coag (PPP) [Relative time]32.7 sec0.0-47.6FMercy Health Allen HospitalPlatelets [#/volume] in Blood by Automated countOrdered By: Rajan Moreland on 70-28-1565Xckyaoxda (Bld) [#/Vol]299 10*3/hD476-297 OhiohealthComment on above:Performed By: #### PP, ESR, CK, ADDONUAPLUS, CRP, CMP, TSH3, CBC, T4F #### [facility] [address] [place] [address] #### ALDOLASE, FRANCISCO,URINE, UPE RAND, SPE, RPR W RFX, FRANCISCO SERUM #### [facility] ,Potassium [Moles/volume] in Serum or PlasmaOrdered By: Rajan Moreland on 78-91-9664Urtsppalr [Moles/Vol]4.4 mmol/L3.5-5.1FMercy Health Allen HospitalComment on above:Performed By: #### PP, ESR, CK, ADDONUAPLUS, CRP, CMP, TSH3, CBC, T4F #### [facility] [address] [place] [address] #### ALDOLASE, FRANCISCO,URINE, UPE RAND, SPE, RPR W RFX, FRANCISCO SERUM #### [facility] ,Protein Auto test strip (U) [Mass/Vol]Ordered By: Rajan Moreland on 08-16-2023 Protein (U) [Mass/Vol]NegativeNegativeOhiohealthProtein Electro, Random Urineon 57-50-9494Hljmmiq, Urine31.5 %Normal.The [facility] Physician GroupComment on above:Performed By: #### PP, ESR, CK, ADDONUAPLUS, CRP, CMP, TSH3, CBC, T4F #### [facility] [address] [place] [address] [place] #### ALDOLASE, FRANCISCO,URINE, UPE RAND, SPE, RPR W RFX, FRANCISCO SERUM #### [facility] ,Nstzj-4-Ruzmfdps, Urine4.2 %Normal.The [facility] Physician GroupComment on above:Performed By: #### PP, ESR, CK, ADDONUAPLUS, CRP, CMP, TSH3, CBC, T4F #### [facility] [address] [place] [address] [place] #### ALDOLASE, FRANCISCO,URINE, UPE RAND, SPE, RPR W RFX, FRANCISCO SERUM #### [facility] ,Frhuc-8-Jhubwxsa, Urine21.3 %Normal.The [facility] Physician GroupComment on above:Performed By: #### PP, ESR, CK, ADDONUAPLUS, CRP, CMP, TSH3, CBC, T4F #### [address] #### ALDOLASE, FRANCISCO,URINE, UPE RAND, SPE, RPR W RFX, FRANCISCO SERUM #### [facility] ,Beta Globulin, Urine22.8 %Normal.The [facility] Physician GroupComment on above: Performed By: #### PP, ESR, CK, ADDONUAPLUS, CRP, CMP, TSH3, CBC, T4F #### [address] #### ALDOLASE, FRANCISCO,URINE, UPE RAND, SPE, RPR W RFX, FRANCISCO SERUM #### [facility] ,Gamma Globulin, Urine20.2 %Normal.The [facility] Physician GroupComment on above:Performed By: #### PP, ESR, CK, ADDONUAPLUS, CRP, CMP, TSH3, CBC, T4F #### [address] #### ALDOLASE, FRANCISCO,URINE, UPE RAND, SPE, RPR W RFX, FRANCISCO SERUM #### [facility] ,M-Ancelmo %Not ObservedNormalNot ObservedThe [facility] Physician GroupComment on above:Performed By: #### PP, ESR, CK, ADDONUAPLUS, CRP, CMP, TSH3, CBC, T4F #### [address] #### ALDOLASE, FRANCISCO,URINE, UPE RAND, SPE, RPR W RFX, FRANCISCO SERUM #### [facility] ,Please Note:Normal.The [facility] Physician GroupComment on above:Result Comment: Protein electrophoresis scan will follow via computer, mail, or measurement and sensing technician delivery. Performed at: [facility] [id number] Yard Hand: Scott Freedman PhD, Phone: [phone] PERFORMED BY: [place] [address] PATHOLOGIST STENOTYPE MACHINE OPERATOR LUZ ELENA MEDINA M.D.Performed By: #### PP, ESR, CK, ADDONUAPLUS, CRP, CMP, TSH3, CBC, T4F #### [address] #### ALDOLASE, FRANCISCO,URINE, UPE RAND, SPE, RPR W RFX, FRANCISCO SERUM #### [facility] ,Protein Electro, Random UrineOrdered By: Rajan Moreland on 61-49-1049Xpqmbkl (U) [Mass/Vol]8.8 mg/dLNot Estab.OhiohealthComment on above:Performed By: #### PP, ESR, CK, ADDONUAPLUS, CRP, CMP, TSH3, CBC, T4F #### [address] #### ALDOLASE, FRANCISCO,URINE, UPE RAND, SPE, RPR W RFX, FRANCISCO SERUM #### [facility] ,Protein Electrophoresis, SerumOrdered By: Rajan Moreland on 74-33-7871Twolpnt [Mass/Vol]4.2 g/dL2.9-4.4FMercy Health Allen HospitalComment on above: Performed By: #### PP, ESR, CK, ADDONUAPLUS, CRP, CMP, TSH3, CBC, T4F #### [place] [address] [place] #### ALDOLASE, FRANCISCO,URINE, UPE RAND, SPE, RPR W RFX, FRANCISCO SERUM #### [facility] ,Albumin/Globulin [Mass ratio]1.3 {ratio}0.7-1.7FMercy Health Allen HospitalComment on above:Performed By: #### PP, ESR, CK, ADDONUAPLUS, CRP, CMP, TSH3, CBC, T4F #### [facility] [address] [place] [address] [place] #### ALDOLASE, FRANCISCO,URINE, UPE RAND, SPE, RPR W RFX, FRANCISCO SERUM #### [facility] ,Globulin (S) [Mass/Vol]3.3 g/dL2.2-3.9OhiohealthComment on above:Performed By: #### PP, ESR, CK, ADDONUAPLUS, CRP, CMP, TSH3, CBC, T4F #### [facility] [address] [place] [address] [place] #### ALDOLASE, FRANCISCO,URINE, UPE RAND, SPE, RPR W RFX, FRANCISCO SERUM #### [facility] ,Protein [Mass/Vol]7.5 g/dL6.0-8.5FMercy Health Allen HospitalComment on above:Performed By: #### PP, ESR, CK, ADDONUAPLUS, CRP, CMP, TSH3, CBC, T4F #### [facility] [address] #### ALDOLASE, FRANCISCO,URINE, UPE RAND, SPE, RPR W RFX, FRANCISCO SERUM #### [facility] ,Protein Electrophoresis, Serumon 07-70-7862Fcprb-1-Globulin0.3 g/dLNormal 0.0-0.4The [facility] Physician GroupComment on above:Performed By: #### PP, ESR, CK, ADDONUAPLUS, CRP, CMP, TSH3, CBC, T4F #### [facility] [address] [place] [address] [place] #### ALDOLASE, FRANCISCO,URINE, UPE RAND, SPE, RPR W RFX, FRANCISCO SERUM #### [facility] ,Furhi-0-Mpdkjblh4.7 g/dLNormal0.4-1.0The [facility] Hospital Physician GroupComment on above:Performed By: #### PP, ESR, CK, ADDONUAPLUS, CRP, CMP, TSH3, CBC, T4F #### [address] #### ALDOLASE, FRANCISCO,URINE, UPE RAND, SPE, RPR W RFX, FRANCISCO SERUM #### [facility] ,Beta Globulin1.1 g/dLNormal0.7-1.3The [facility] Physician GroupComment on above:Performed By: #### PP, ESR, CK, ADDONUAPLUS, CRP, CMP, TSH3, CBC, T4F #### [address] #### ALDOLASE, FRANCISCO,URINE, UPE RAND, SPE, RPR W RFX, FRANCISCO SERUM #### [facility] ,Gamma Globulin1.2 g/dLNormal0.4-1.8The [facility] Physician GroupComment on above:Performed By: #### PP, ESR, CK, ADDONUAPLUS, CRP, CMP, TSH3, CBC, T4F #### [address] #### ALDOLASE, FRANCISCO,URINE, UPE RAND, SPE, RPR W RFX, FRANCISCO SERUM #### [facility] ,M-SpikeNot ObservedNormalNot ObservedThe [facility] Physician GroupComment on above:Performed By: #### PP, ESR, CK, ADDONUAPLUS, CRP, CMP, TSH3, CBC, T4F #### [address] #### ALDOLASE, FRANCISCO,URINE, UPE RAND, SPE, RPR W RFX, FRANCISCO SERUM #### [facility] ,SPE-NoteNormal.The [facility] Physician GroupComment on above:Result Comment: Protein electrophoresis scan will follow via computer, mail, or measurement and sensing technician delivery.Performed By: #### PP, ESR, CK, ADDONUAPLUS, CRP, CMP, TSH3, CBC, T4F #### [address] [place] [address] [place] #### ALDOLASE, FRANCISCO,URINE, UPE RAND, SPE, RPR W RFX, FRANCISCO SERUM #### [facility] ,Protein [Mass/volume] in Serum or PlasmaOrdered By: Rajan Moreland on 48-96-6152Qlrwjgg [Mass/Vol]7.6 g/dL6.4-8.9[facility] Comment on above:Performed By: #### PP, ESR, CK, ADDONUAPLUS, CRP, CMP, TSH3, CBC, T4F #### [address] #### ALDOLASE, FRANCISCO,URINE, UPE RAND, SPE, RPR W RFX, FRANCISCO SERUM #### [facility] ,Protein.monoclonal/Protein.total in 24 hour Urine by ElectrophoresisOrdered By: Rajan Moreland on 75-92-9921Scilfej.monoclonal Elph (24H U) [Mass fraction]Not observed %Not ObservedOhiohealthProthrombin time (PT) Ordered By: Rajan Pascualrow on 35-36-6823AN Coag (PPP) [Time]9.8 s9.0-12.9 OhiohealthComment on above:A hematocrit value greater than 55% may lead to inaccurate results in coagulation testing. Patientshaving hematocrit values >55% require a special collection tube for coagulation studies. Please contact the laboratory at [phone] for redraw instructions. Result Comment: A hematocrit value greater than 55% may lead to inaccurate results in coagulation testing. Patients having hematocrit values >55% require a special collection tube for coagulation studies. Please contact the laboratory at [phone] for redraw instructions.Performed By: #### PP, ESR, CK, ADDONUAPLUS, CRP, CMP, TSH3, CBC, T4F #### [address] #### ALDOLASE, FRANCISCO,URINE, UPE RAND, SPE, RPR W RFX, FRANCISCO SERUM #### [facility] ,RPR w/rfx to Quant TP Abson 52-66-5476PEK, Rfx Quant RPRNon-ReactiveNormalNon ReactiveThe [facility] Hospital Physician GroupComment on above:Result Comment: Performed at: - [facility] [address] [place], [place] [id number] Yard Hand: Scott Freedman PhD, Phone: [phone] PERFORMED BY: [place] [address] PATHOLOGIST STENOTYPE MACHINE OPERATOR LUZ ELENA MEDINA M.D.Performed By: #### PP, ESR, CK, ADDONUAPLUS, CRP, CMP, TSH3, CBC, T4F #### [address] #### ALDOLASE, FRANCISCO,URINE, UPE RAND, SPE, RPR W RFX, FRANCISCO SERUM #### [facility] ,Reagin Ab [Presence] in Serum by RPROrdered By: Rajan Moreland on 08-16-2023 Reagin Ab RPR Ql (S)Non-ReactiveNon ReactiveOhiohealth Comment on above:Performed at: - [facility] HospitalFfuvke[address] [place], [place] [id number] Director: Scott Freedman PhD, Phone: [phone] dilute Emory's viper venom time (DRVVT) with reflex to confirmatory testOrdered By: Rajan Moreland on 26-47-3001dZTPL Coag (PPP) [Time]31.4 s0.0-47.0[facility] Medical Centercreening lupus anticoagulant-sensitive activated partial thromboplastin time (aPTT)Ordered By: Rajan Moreland on 93-67-1188aIXN.lupus sensitive Coag (PPP) [Time]28.4 sec0.0-43.5FMercy Health Allen Hospital Serum globulin measurement by calculation (mass/volume)Ordered By: Rajan Moreland on 44-09-6560Xujeraln (S) [Mass/Vol]3.0 g/dLOhiohealthComment on above:Performed By: #### PP, ESR, CK, ADDONUAPLUS, CRP, CMP, TSH3, CBC, T4F #### [facility] [address] [place] [address] [place] #### ALDOLASE, FRANCISCO,URINE, UPE RAND, SPE, RPR W RFX, FRANCISCO SERUM #### [facility] ,Serum homogeneous pattern antinuclear antibody (TONJA) titerOrdered By: Rajan Moreland on 82-29-7163Qwleovyeyd nuclear Ab pattern (S) [Titer]N/AFOhioHealth Nelsonville Health Centererum nuclear antibody titerOrdered By: Rajan Moreland on 64-94-7111Poakkqw Ab (S) [Titer]Negative.[facility] Comment on above:Negative <1:80 Borderline 1:80 Positive >1:80ICAP nomenclature: AC-0For more information about Hep-2 cell patterns useANApatterns.org, the official website for theInternational Consensus on Antinuclear Antibody (TONJA)Patterns (ICAP).Performed at: [place] [id number] Director: Scott Freedman PhD, Phone: [phone] or plasma albumin/globulin mass ratioOrdered By: Rajan Moreland on 08-16-2023 Albumin/Globulin [Mass ratio]1.5 {ratio}OhiohealthComment on above:Performed By: #### PP, ESR, CK, ADDONUAPLUS, CRP, CMP, TSH3, CBC, T4F #### [facility] [address] [place] [address] [place] #### ALDOLASE, FRANCISCO,URINE, UPE RAND, SPE, RPR W RFX, FRANCISCO SERUM #### [facility] ,Serum or plasma alpha 1 globulin measurement by electrophoresis (mass/volume) Ordered By: Rajan Moreland on 61-53-2481Zrxsc 1 globulin Elph [Mass/Vol]0.3 g/dL 0.0-0.4FOhioHealth Nelsonville Health Centererum or plasma alpha 2 globulin measurement by electrophoresis (mass/volume)Ordered By: Rajan Moreland on 04-63-5464Rynxz 2 globulin Elph [Mass/Vol]0.7 g/dL0.4-1.0[facility] Medical Centererum or plasma anion gap determinationOrdered By: Rajan Moreland on 92-53-7995Fdgeh gap [Moles/Vol]10.8 mmol/L6.0-15.0OhiohealthComment on above:Performed By: #### PP, ESR, CK, ADDONUAPLUS, CRP, CMP, TSH3, CBC, T4F #### [facility] [address] #### ALDOLASE, FRANCISCO,URINE, UPE RAND, SPE, RPR W RFX, FRANCISCO SERUM #### [facility] ,Serum or plasma beta globulin measurement by electrophoresis (mass/volume) Ordered By: Rajan Moreland on 44-11-1995Sjzt globulin Elph [Mass/Vol]1.1 g/dL 0.7-1.3FOhioHealth Nelsonville Health Centererum or plasma chromatin antibody assay (units/volume)Ordered By: Rajan Moreland on 61-01-3547Fagodfumw Ab Qn0.2 AI 0.0-0.9OhiohealthComment on above:Performed at: [facility] [id number] Director: Scott Freedman PhD, Phone: [phone] or plasma complement C3 measurement (mass/volume)Ordered By: Rajan Moreland on 87-68-8937Xwgtdtqjcd C3 [Mass/Vol]171 mg/iB22-029PqdqwjfhiOhiohealthComment on above:Performed at: [facility] [id number] Director: Scott Freedman PhD, Phone: [phone] or plasma complement C4 measurement (mass/volume)Ordered By: Rajan Moreland on 98-09-6705Nzkqzcdqrg C4 [Mass/Vol]27 mg/tL35-15GztwdswcpDayton VA Medical Centererum or plasma gamma globulin measurement by electrophoresis (mass/volume)Ordered By: Rajan Moreland on 66-87-7081Ujesw globulin Elph [Mass/Vol]1.2 g/dL0.4-1.8[facility] Medical Centererum or plasma thyroglobulin antibody assay (units/volume)Ordered By: Rajan Moreland on 22-62-9394Gjegqydsqzsxd Ab Qn[IU]/mL0.0-0.9OhiohealthComment on above:Thyroglobulin Antibody measured by Angel CoulterMethodologyIt should be noted that the presence of thyroglobulinantibodies may not be pathogenic nor diagnostic, especiallyat very low levels. The assay airborne operations manager has found thatfour percent of individuals without evidence of thyroiddisease or autoimmunity will have positive TgAb levels upto 4 IU/mL.Performed at: [facility] [id number] Director: Scott Freedman PhD, Phone: [phone] or plasma thyroperoxidase antibody assay (units/volume)Ordered By: Rajan Moreland on 79-91-7983OZT Ab Qn14 [IU]/mL0-34OhiohealthComment on above:Performed at: [facility] [id number] Director: Scott Freedman PhD, Phone: [phone] [Moles/volume] in Serum or PlasmaOrdered By: Rajan Moreland on 45-91-5365Wybcqq [Moles/Vol]137 mmol/T587-922GnrfczbtfOhiohealthComment on above:Performed By: #### PP, ESR, CK, ADDONUAPLUS, CRP, CMP, TSH3, CBC, T4F #### [address] #### ALDOLASE, FRANCISCO,URINE, UPE RAND, SPE, RPR W RFX, FRANCISCO SERUM #### [facility] ,Specific gravity Auto test strip (U) [Rel density]Ordered By: Rajan Moreland on 77-14-0496Nspixqnt gravity (U) [Rel density]1.0241.001-1.030[facility] Medical Centerquamous epithelial cells detection in urine sediment by light microscopyOrdered By: Rajan Moreland on 96-06-3091Hxqukhwdhl cells.squamous LM Ql (Urine sed)None seen [HPF]0-2FMercy Health Allen HospitalTT plasOrdered By: Rajan Aniceto on 67-70-8483Jpfddydo time Coag (PPP) [Time]18.8 sec0.0-23.0 OhiohealthThyroid Peroxidase Antibodieson 08-16-2023 Thyroid Peroxidase Yaxifdcnpi09Lkelag2-02Grs [facility] Physician GroupComment on above:Result Comment: Performed at: - [facility] [address] [id number] Yard Hand: Scott Freedman PhD, Phone: [phone] By: #### PP, ESR, CK, ADDONUAPLUS, CRP, CMP, TSH3, CBC, T4F #### [facility] [address] [place] [address] #### ALDOLASE, FRANCISCO,URINE, UPE RAND, SPE, RPR W RFX, FRANCISCO SERUM #### [facility] ,Thyrotropin [Units/volume] in Serum or PlasmaOrdered By: Rajan Moreland on 16-70-2948GSU Qn1.48 m[IU]/L0.45-5.33OhiohealthComment on above:Result Comment: PERFORMED BY: [place] [address] PATHOLOGIST STENOTYPE MACHINE OPERATOR LUZ ELENA MEDINA M.D.Performed By: #### PP, ESR, CK, ADDONUAPLUS, CRP, CMP, TSH3, CBC, T4F #### [address] #### ALDOLASE, FRANCISCO,URINE, UPE RAND, SPE, RPR W RFX, FRANCISCO SERUM #### [facility] ,Thyroxine (T4) free [Mass/volume] in Serum or PlasmaOrdered By: Rajan Moreland on 49-70-7090Gmhf T4 [Mass/Vol]0.86 ng/dL0.61-1.12OhiohealthComment on above:Performed By: #### PP, ESR, CK, ADDONUAPLUS, CRP, CMP, TSH3, CBC, T4F #### [place] [id number] [place] #### ALDOLASE, FRANCISCO,URINE, UPE RAND, SPE, RPR W RFX, FRANCISCO SERUM #### [facility] ,Urea nitrogen [Mass/volume] in Serum or PlasmaOrdered By: Rajan Moreland on 44-34-6837Ejoj nitrogen [Mass/Vol]14 mg/dL7-25[facility] Comment on above:Performed By: #### PP, ESR, CK, ADDONUAPLUS, CRP, CMP, TSH3, CBC, T4F #### [facility] [address] #### ALDOLASE, FRANCISCO,URINE, UPE RAND, SPE, RPR W RFX, FRANCISCO SERUM #### [facility] ,Urine alpha 1 globulin/total protein by electrophoresisOrdered By: Rajan Moreland on 83-98-3900Ayzit 1 globulin Elph (U) [Mass fraction]4.2 %.OhiohealthUrine alpha 2 globulin/total protein ratio by electrophoresisOrdered By: Rajan Moreland on 42-30-8550Dgqyn 2 globulin Elph (U) [Mass fraction]21.3 %.OhiohealthUrine beta globulin measurement by electrophoresis (mass/volume)Ordered By: Rajan Moreland on 08-37-5234Wluh globulin Elph (U) [Mass/Vol]22.8 %.OhiohealthUrine clarity by refractometry automatedOrdered By: Rajan Moreland on 08-68-4098Uxzjkhx Refractometry automated (U)ClearCleShelby Memorial HospitalUrine glucose measurement by automated test strip (mass/volume) Ordered By: Rajan Moreland on 66-52-1644Okvpwfj Auto test strip (U) [Mass/Vol] 500 mg/dLNormalOhiohealthUrine hemoglobin detection by automated test stripOrdered By: Rajan Moreland on 30-14-0903Ybsvzwezfm Auto test strip Ql (U)NegativeNegLakeHealth TriPoint Medical CenterUrine leukocyte esterase detection by automated test stripOrdered By: Rajan Moreland on 46-37-8821Djlpfhyvy esterase Auto test strip Ql (U)NegativeNegLakeHealth TriPoint Medical CenterUrine pH measurement by automated test stripOrdered By: Rajan Moreland on 76-02-0676uM (U)6.5 [pH]5.0-9.0OhiohealthComment on above:Order Comment: Name Collection Type:: Clean-Voided MidstreamPerformed By: #### PP, ESR, CK, ADDONUAPLUS, CRP, CMP, TSH3, CBC, T4F #### [facility] [address] #### ALDOLASE, FRANCISCO,URINE, UPE RAND, SPE, RPR W RFX, FRANCISCO SERUM #### [facility] ,Urobilinogen Auto test strip (U) [Mass/Vol]Ordered By: Rajan Moreland on 26-66-2613Wkrhidaujmuk (U) [Mass/Vol]Normal mg/dLNormalOhiohealthaPTT.lupus sensitive/aPTT.lupus sensitive W excess phospholipid (screen to confirm raOrdered By: Rajan Moreland on 04-09-6125qRDX.lupus sensitive/aPTT.lupus sensitive W excess phospholipid Coag (PPP) [Ratio]1.16 Ratio0.00-1.34OhiohealthBasophils Auto (Bld) [#/Vol]on 46-36-0157Hskkpftxh (Bld) [#/Vol]0.0 10 3/uL0.0-0.1FMercy Health Allen HospitalBasophils/100 WBC Auto (Bld)on 74-96-9548Xkpbehnwt/100 WBC (Bld)0.6 % 0.2-2.0OhiohealthEosinophils/100 WBC Auto (Bld)on 96-99-8023Epertnmeblx/100 WBC (Bld)1.5 %0.9-7.0[facility] Erythrocyte distribution width Auto (RBC) [Ratio]on 92-42-4022Qmmkoazaoir distribution width (RBC) [Ratio]12.5 %11.0-15.0[facility] Hematocrit Auto (Bld) [Volume fraction]on 98-61-2959Ldwbbpwmab (Bld) [Volume fraction]43.9 %42.0-54.0OhiohealthHemoglobin [Mass/volume] in Bloodon 42-20-4344Ceooahpyqc (Bld) [Mass/Vol]14.1 g/dL14.0-18.0 OhiohealthLaboratory - Hematology and Cell countson 48-72-3156SIO (Bld) [Velocity]10 mm/h<=20[facility] Immature granulocytes/100 WBC (Bld)0.3 %0.0-0.5FMercy Health Allen Hospital Leukocytes [#/volume] corrected for nucleated erythrocytes in Blood by Automated counon 91-48-3733GVC corrected for nucl RBC Auto (Bld) [#/Vol]7.3 10 3/uL 4.0-11.0OhiohealthLymphocytes Auto (Bld) [#/Vol]on 65-98-7947Dpktxfysruc (Bld) [#/Vol]1.0 10 3/uL1.2-3.8OhiohealthLymphocytes/100 WBC Auto (Bld)on 02-77-2874Ouwpzouykyd/100 WBC (Bld)13.7 % 20.5-60.0[facility] MemorialH Auto (RBC) [Entitic mass]on 04-57-3742UHW (RBC) [Entitic mass]27.1 pg25.9-34.0OhiohealthMCHC Auto (RBC) [Mass/Vol]on 35-27-1948WYIH (RBC) [Mass/Vol]32.1 g/dL 29.9-35.2FMercy Health Allen HospitalMCV Auto (RBC) [Entitic vol]on 06-18-7658ZLF (RBC) [Entitic vol]84.3 fL80.0-94.0OhiohealthMonocytes Auto (Bld) [#/Vol]on 69-21-4175Hjbfmahxu (Bld) [#/Vol]0.4 10 3/uL0.3-0.8OhiohealthMonocytes/100 WBC Auto (Bld)on 77-28-5308Cviqexnpu/100 WBC (Bld)6.1 %1.7-12.0[facility] Neutrophils Auto (Bld) [#/Vol]on 21-19-8157Xawazmshrpu (Bld) [#/Vol]5.7 10 3/uL 1.4-6.5FMercy Health Allen HospitalNeutrophils/100 WBC Auto (Bld)on 07-40-8144Nnkmjxbhuvx/100 WBC (Bld)77.8 %43.0-75.0OhiohealthNo Panel Informationon 24-38-9497Jrem-Double Strand DNA Ocvoymzc05 [IU]/mL 0-9OhiohealthComment on above:Negative <5 Equivocal 5 - 9 Positive >9Anti-Nuclear Antibody InterpretComment.OhiohealthComment on above:Autoantibody Disease Association Conditi on Frequency ---------Antinuclear Antibody, SLE, mixed connectiveDirect (TONJA-D) tissue diseases ---------dsDNA SLE 40 - 60% ---------Chromatin Drug induced SLE 90% SLE 48 - 97% ---------SSA (Ro) SLE 25 - 35% Sjogren's Syndrome 40 - 70% Lupus 100% ---------SSB (La) SLE 10% Sjogren's Syndrome 30% ---------Sm (anti-Kerr) SLE 15 - 30% ---------DIGITIZER Mixed Connective TissueDisease 95%(U1 nRNP, SLE 30 - 50%anti- ribonucleoprotein) Polymyositis and/or Dermatomyositis 20% ---------Scl-70 (antiDNA Scleroderma (diffuse) 20 - 35%topoisomerase) Crest 13% ---------Niru-1 Polymyositis and/or Dermatomyositis 20 - 40% ---------Centromere B Scleroderma - Crest variant 80%Performed at: [address] [id number] Director: Scott Freedman PhD, Phone: [phone]-Frjjdvmw Protein, Quantitative<0.50 mg/dL<=0.50OhiohealthEosinophils # (Auto)0.1 10 3/uL0.0-0.7FMercy Health Allen HospitalImmature Granulocyte # (Auto)0.02 10 3/uL0.00-0.03OhiohealthRNP Antibody<0.2 AI 0.0-0.9OhiohealthPlatelet mean volume Auto (Bld) [Entitic vol]on 36-07-7398Tkpxiuft mean volume (Bld) [Entitic vol]9.0 fL9.5-13.5 OhiohealthPlatelets Auto (Bld) [#/Vol]on 06-27-2023 Platelets (Bld) [#/Vol]296 10 3/cZ065-458LehkgrfawOhiohealthRBC Auto (Bld) [#/Vol]on 49-27-0635GHD (Bld) [#/Vol]5.21 10 6/uL4.70-6.10[facility] Centererum Sjogrens syndrome-A extractable nuclear antibody assay (units/volume)on 37-48-1054Aawosafz syndrome-A extractable nuclear Ab Qn (S)<0.2 AI0.0-0.9[facility] Centererum Sjogrens syndrome-B extractable nuclear antibody assay (units/volume)on 45-79-8403Gpfiogxk syndrome- B extractable nuclear Ab Qn (S)<0.2 AI0.0-0.9[facility] Serum Kerr extractable nuclear antigen (ABAD) antibody assay (units/volume)on 25-76-7237Xcrot extractable nuclear Ab Qn (S)<0.2 AI0.0-0.9[facility] Centererum or plasma cyclic adenosine monophosphate measurement (moles/volume)on 07-92-3943Dvvdklsff monophosphate.cyclic [Moles/Vol]3 units0-19 OhiohealthComment on above:Negative <20 Weak positive 20 - 39 Moderate positive 40 - 59 Strong positive >59Performed at:[facility] [id number] Director: Scott Freedman PhD, Phone: [phone] or plasma free cefuroxime measurement (mass/volume)on 52-38-8744Gbhpxvccgk free [Mass/Vol]PositiveNegativeDayton VA Medical Centererum or plasma rheumatoid factor measurement (units/volume)on 06-27-2023 Rheumatoid factor Qn[IU]/mL<14.0OhiohealthComment on above:Performed at: - [place] [id number] Director: Scott Freedman PhD, Phone: [phone] By: Lab ROPUser on 64-42-2393Aabzcrm [Mass/Vol]203 mg/cASnfz04 - 99 mg/dLCOMMUNITY HOSPITAL – [place] POC SubsectionComment on above:Result Comment: No Coverage Given Cleaned MeterPOC Device [id number] 1Invalid Interpretation CodeCOMMUNITY HOSPITAL – [place] POC SubsectionPOC User [id number] 1Invalid Interpretation CodeCOMMUNITY HOSPITAL – [place] POC Subsection POC UsernamMisty Patelvalcaitlyn Interpretation CodeCOMMUNITY HOSPITAL – [place] POC SubsectionCHEMISTRY Ordered By: SYSTEM SYSTEM on 24-15-7902Gkzyz gap [Moles/Vol]10 mmol/LNormal6 - 16 mEq/LRemisol ChemCalcium [Mass/Vol]9.6 mg/dLNormal8.9 - 11.1 mg/dLRemisol ChemChloride [Moles/Vol]103 mmol/HBbukbh780 - 111 mmol/LRemisol ChemCO2 [Moles/Vol]31 mmol/ELdmpyk80 - 31 mmol/LRemisol ChemCreatinine [Mass/Vol]0.8 mg/dLNormal0.5 - 1.3 mg/dLRemisol ChemeGFRmL/min/1.73 x3Sccnhl>=59mL/min/1.73 m2 Remisol ChemGlucose [Mass/Vol]169 mg/yZFdeibg98 - 199 mg/dLRemisol ChemPotassium [Moles/Vol]4.3 mmol/LNormal3.5 - 5.3 mmol/LRemisol ChemSodium [Moles/Vol]140 mmol/FFfuxpg676 - 145 mmol/LRemisol ChemUrea nitrogen [Mass/Vol]14 mg/dLNormal5 - 21 mg/dLRemisol ChemUrea nitrogen/Creatinine [Mass ratio]18 mg/kwVhiqhz64 - 20 Remisol ChemHEMATOLOGYOrdered By: SYSTEM SYSTEM on 93-86-3530Yuovzgryn/100 WBC (Bld)0.6 %Normal0.0 - 2.0 %[facility] HemeAutoSSBasophils/Leukocytes Auto (Bld) [Pure # fraction]0.0 E9/LNormal0.0 - 0.2 E9/LFTMC HemeAutoSSEosinophils/100 WBC (Bld) 1.8 %Normal0.0 - 8.0 %[facility] HemeAutoSSEosinophils/Leukocytes Auto (Bld) [Pure # fraction]0.1 E9/LNormal0.0 - 0.5 E9/LFTMC HemeAutoSSLymphocytes/100 WBC (Bld) 19.3 %Qtwkrq65.0 - 50.0 %[facility] HemeAutoSSLymphocytes/Leukocytes Auto (Bld) [Pure # fraction]1.3 E9/LNormal1.0 - 4.0 E9/LFTMC HemeAutoSSMonocytes/100 WBC (Bld)8.4 %Normal4.0 - 14.0 %[facility] HemeAutoSSMonocytes/Leukocytes Auto (Bld) [Pure # fraction]0.6 E9/LNormal0.2 - 1.0 E9/LFTMC HemeAutoSSNeutrophils/100 WBC (Bld) 69.9 %Olusjl46.0 - 75.0 %[facility] HemeAutoSSNeutrophils/Leukocytes Auto (Bld) [Pure # fraction]4.6 E9/LNormal2.0 - 7.5 E9/LFTMC HemeAutoSSHEMATOLOGYOrdered By: Cher Echeverria on 59-88-3061Eyphvkuonvc distribution width (RBC) [Ratio]13.7 % Zxevxj14.9 - 14.2 %[facility] HemeAutoSSHematocrit (Bld) [Volume fraction]43.0 %Normal 37.7 - 49.0 %[facility] HemeAutoSSHemoglobin (Bld) [Mass/Vol]14.6 g/nFIjmquz26.5 - 17.5 gm/dLFTMC HemeAutoSSMCH (RBC) [Entitic mass]28.3 xjTnmjat84.0 - 34.0 pgFTM HemeAutoSSMCHC (RBC) [Mass/Vol]33.9 g/qMXaclrs61.4 - 36.0 gm/dLFT HemeAutoSS MCV (RBC) [Entitic vol]83.3 pODecrqm34.0 - 100.0 fLCOMMUNITY HOSPITAL – [place] HemeAutoSSPlatelet mean volume (Bld) [Entitic vol]7.4 fLNormal6.4 - 10.8 fLCOMMUNITY HOSPITAL – [place] HemeAutoSSPlatelets (Bld) [#/Vol]315.0 E9/VYvkboa581.0 - 500.0 E9/LFNEWMAN MEMORIAL H[facility] – [place] HemeAutoSSRBC (Bld) [#/Vol] 5.2 E12/LNormal4.3 - 5.9 E12/LFC HemeAutoSSWBC corrected for nucl RBC Auto (Bld) [#/Vol]6.6 E9/LNormal4.0 - 11.0 E9/LFNEWMAN MEMORIAL HOSPITAL – [place] HemeAutoSSCBC W MANUAL DIFFon 42-75-4659SGKWBVXQ LYMPH #NormalThe St. [facility] Ironton CampusComment on above:Performed By: #### CBC #### [facility] [address] [place] [address] Dr. Wai MckeonYPICAL LYMPH %NormalThe St. [facility]ont[facility] CampusComment on above: Performed By: #### CBC #### [facility] [address] [place] [address] Dr. Wai Bass #0.0 103/ulNormal0.0-0.3The [facility]ont[facility] CampusComment on above:Performed By: #### CBC #### [facility] [address] [place] [address] Dr. Wai Bass %0 %Normal0-5The [facility] CampusComment on above:Performed By: #### CBC #### [facility] [address] [place] [address] Dr. Wai Britt #0.00 103/ulNormal0.00-0.10The [facility] CampusComment on above:Performed By: #### CBC #### [facility] [address] [place] [address] Dr. Wai Britt %0.0 %Critically low0.2-2.0The [facility] CampusComment on above:Performed By: #### CBC #### [facility] [address] [place] [address] Dr. Wai London #NormalThe St[facility] CampusComment on above:Performed By: #### CBC #### [facility] [address] [place] [address] [address] Wai London %NormalThe St. [facility] CampusComment on above:Performed By: #### CBC #### [facility] [address] [place] [address] Dr. Wai VallejoCORRECTED WBCNormal4.0-11.0The [facility]ont[facility] CampusComment on above: Performed By: #### CBC #### [facility] [address] [place] [address] Dr. Wai Santos #0.00 103/ulNormal0.00-0.70The [facility] CampusComment on above:Performed By: #### CBC #### [facility] [address] [place] [address] Dr. Wai Santos%0.0 %Critically low0.9-7.0The [facility] CampusComment on above:Performed By: #### CBC #### [facility] [address] [place] [address] Dr. Wai VallejoHCT40.4 %Critically low42.0-54.0The [facility] CampusComment on above:Performed By: #### CBC #### [facility] [address] [place] [address] Dr. Wai VallejoHGB13.8 g/dlCritically low14.0-18.0The [facility] CampusComment on above:Performed By: #### CBC #### [facility] [address] [place] [address] Dr. Wai Tabor #0.62 103/ulCritically low1.20-3.80The [facility] on above:Performed By: #### CBC #### [facility] [address] [place] [address] Dr. Wai Tabor%6.0 %Critically low20.5-60.0The [facility] CampusComment on above:Performed By: #### CBC #### [facility] [address] [place] [address] Dr. Wai ArreolaH28.2 fyGalhhj16.9-34.0The [facility] CampusComment on above: Performed By: #### CBC #### [facility] [address] [place] [address] Dr. Wai ArreolaHC34.2 g/qhBkamfe67.9-35.2The [facility] CampusComment on above:Performed By: #### CBC #### [facility] [address] [place] [address] Dr. Wai ArreolaV82.[address] aDVzvnkh73.0-94.0The [facility] CampusComment on above: Performed By: #### CBC #### [facility] [address] [place] [address] Dr. Wai FranksOCYTE #NormalThe [facility] CampusComment on above: Performed By: #### CBC #### [facility] [address] [place] [address] Dr. Wai FranksOCYTE %NormalThe [facility] CampusComment on above: Performed By: #### CBC #### [facility] [address] [place] [address] Dr. Wai Celeste#0.52 103/ulNormal0.30-0.80The [facility] CampusComment on above:Performed By: #### CBC #### [facility] [address] [place] [address] Dr. Wai Celeste%5.0 %Normal1.7-12.0The [facility] CampusComment on above: Performed By: #### CBC #### [facility] [address] [place] [address] Dr. Wai MoralezV9.6 fLNormal9.5-13.5The [facility] CampusComment on above: Performed By: #### CBC #### [facility] [address] [place] [address] [address] Wai PereiraOCYTE #NormalThe St. [facility] CampusComment on above:Performed By: #### CBC #### [facility] [address] [place] [address] [address] Wai PereiraOCYTE %NormalThe St. [facility] CampusComment on above:Performed By: #### CBC #### [facility] [address] [place] [address] [address] W[address] VallejoNRBCNormalThe St[facility] CampusComment on above:Performed By: #### CBC #### [facility] [address] [place] [address] [address] Wai RuizT268 103/qyFxhauh198-103Agh [facility] CampusComment on above: Performed By: #### CBC #### [facility] [address] [place] [address] Dr. Wai VallejoRBC4.90 106/ulNormal4.70-6.10The [facility] CampusComment on above:Performed By: #### CBC #### [facility] [address] [place] [address] Dr. Wai GaitanW12.3 %Evnkjp57.0-15.0The [facility] CampusComment on above: Performed By: #### CBC #### [facility] [address] [place] [address] Dr. Wai Medeiros #9.17 103/ulCritically high1.40-6.50The [facility] Comment on above:Performed By: #### CBC #### [facility] [address] [place] [address] Dr. Wai Medeiros %89.0 %Critically high43.0-75.0The [facility] CampusComment on above:Performed By: #### CBC #### [facility] [address] [place] [address] Dr. Wai McclellandBC10.3 103/ulNormal4.0-11.0The [facility] CampusComment on above:Performed By: #### CBC #### [facility] [address] [place] [address] [address] Wai VallejoMRI BRAIN WO CONon 11-58-2816JKQ BRAIN WO CONEXAMINATION: MRI BRAIN WO CON, [...] Electronically authenticated by: STEPHY DELANEY Date: 2022-06-20 08:23SCCI [facility] LimaPOINT OF CARE GLUCOSEon 26-45-1015Gnqzfax [Mass/Vol]318 mg/dL Critically wuhg27-387EfmOur Lady Of Mercy Hospital - AndersonComment on above:Performed By: #### POCGLUC #### [facility] [address] [place] [address] Dr. Wai VallejoGlucose [Mass/Vol]212 mg/dLCritically hpvz30-585MqbOur Lady Of Mercy Hospital - AndersonCommary [facility] bed rehabilitation [facility] on above:Performed By: #### POCGLUC #### [facility] [address] [address] [address] Wai VallejoGlucose [Mass/Vol]359 mg/dLCritically bwuc63-680PzaOur Lady Of Mercy Hospital - AndersonCommary [facility] rehabilitation [facility] on above:Performed By: #### CBC #### [facility] [address] [place] [address] Dr. Wai VallejoPROF CHEM 8 (BAS METB)on 88-24-4392Esqry gap [Moles/Vol]12.0 mmol/LNormalOur Lady Of Mercy Hospital - AndersonComment on above:Performed By: #### BMP #### [facility] [address] [place] [address] [address] Wai VallejoCalcium [Mass/Vol]9.3 mg/dLNormal8.5-10.1The [facility] Comment on above:Performed By: #### BMP #### [facility] [address] [address] [address] Wai VallejoChloride [Moles/Vol]104 mmol/SVdsdtu94-532Dqh [facility] Comment on above:Performed By: #### BMP #### [facility] [address] [address] [address] Wai VallejoCO2 [Moles/Vol]28.2 mmol/DLadgea12.0-32.0The [facility] Comment on above:Performed By: #### BMP #### [facility] [address] [place] [address] Dr. Wai VallejoCreatinine [Mass/Vol]0.85 mg/dLNormal0.70-1.30The [facility] CampusComment on above:Performed By: #### BMP #### [facility] [address] [address] [address] Carreno ChangEGFR-AF URUGUAYAN>60Normal>=60The [facility] Iront[facility] CampusComment on above:Performed By: #### BMP #### [facility] [address] [place] [address] Dr. Wai IngramGFR-NON AF URUGUAYAN>60Normal>=60The [facility] CampusComment on above:Performed By: #### BMP #### [facility] [address] [address] [address] Wai VallejoGlucose [Mass/Vol]263 mg/dLCritically cadp95-022Cfp [facility] CampusComment on above:Performed By: #### BMP #### [facility] [address] [address] [address] Wai VallejoPotassium [Moles/Vol]4.2 mmol/LNormal3.5-5.1The [facility] Comment on above:Performed By: #### BMP #### [facility] [address] [place] [address] Dr. Wai Aldium [Moles/Vol]140 mmol/YBivmun496-064TtfOur Lady Of Mercy Hospital - Anderson Comment on above:Performed By: #### BMP #### [facility] [address] [address] [address] Wai Chiu nitrogen [Mass/Vol]18.0 mg/dLNormal7.0-18.0[facility] - AndersonComment on above:Performed By: #### BMP #### [facility] [address] [address] [address] Wai Chiu nitrogen/Creatinine [Mass ratio]21.2 mg/mgNoThe Christ HospitalComment on above:Performed By: #### BMP #### [facility] [address] [place] [address] Dr. Wai VallejoXR FOREIGN BODY EYEon 32-61-2856RJ FOREIGN BODY EYEEXAMINATION: XR FOREIGN BODY EYE HISTORY: Foreign body in eye COMPARISON: No relevant comparison available. FINDINGS: ORBITS: Negative for a metallic foreign body. OTHER: Negative. IMPRESSION: 1. No metallic foreign body within the orbits. Electronically authenticated by: STEPHY DELANEY Date: 2022-06-20 07:54NoTrinity Health [facility] AUTO DIFFon 10-55-6440ONDS #0.0 103/ulNormal0.0-0.1[facility] - AndersonComment on above:Performed By: #### CBC #### [facility] [address] [place] [address] Dr. Wai VallejoBasophils/100 WBC (Bld)0.4 %Normal0.2-2.0[facility] Comment on above:Performed By: #### CBC #### [facility] [address] [place] [address] Dr. Wai Gonzales #0.0 103/ulNormal0.0-0.7The [facility] CampusComment on above: Performed By: #### CBC #### [facility] [address] [place] [address] Dr. Wai Ingramosinophils/100 WBC (Bld)0.4 %Critically low0.9-7.0The [facility] CampusComment on above:Performed By: #### CBC #### [facility] [address] [place] [address] Dr. Wai Ingramrythrocyte distribution width (RBC) [Ratio]12.3 %Yyhxkr57.0-15.[address] [facility] CampusComment on above:Performed By: #### CBC #### [facility] [address] [place] [address] Dr. Wai VallejoHematocrit (Bld) [Volume fraction]43.7 %Ixxflk92.0-54.0The [facility] CampusComment on above:Performed By: #### CBC #### [facility] [address] [place] [address] Dr. Wai VallejoHemoglobin (Bld) [Mass/Vol]15.1 g/hTOheljr10.0-18.0The [facility] CampusComment on above:Performed By: #### CBC #### [facility] [address] [place] [address] Dr. Wai Lyon #0.01 10e3/ulNormal0.00-0.03The [facility] CampusComment on above:Performed By: #### CBC #### [facility] [address] [place] [address] Dr. Wai Lyon %0.1 %Normal0.0-0.5The [facility] CampusComment on above: Performed By: #### CBC #### [facility] [address] [place] [address] Dr. Wai DavilaH #1.2 103/ulNormal1.2-3.8The [facility] CampusComment on above:Performed By: #### CBC #### [facility] [address] [place] [address] Dr. Wai Vallemphocytes/100 WBC (Bld)14.6 %Critically low20.5-60.0The [facility]onton CampusComment on above:Performed By: #### CBC #### [facility] [address] [place] [address] Dr. Wai Mena DIFF REQNONormalThe St. [facility] CampusComment on above: Performed By: #### CBC #### [facility] [address] [place] [address] Dr. Wai Arreola (RBC) [Entitic mass]28.3 keEzzsgr79.9-34.0The [facility] HospitalComment on above:Performed By: #### CBC #### [facility] [address] [place] [address] Dr. Wai Arreola (RBC) [Mass/Vol]34.6 g/sUJjuwrx07.9-35.2The [facility] HospitalComment on above:Performed By: #### CBC #### [facility] [address] [place] [address] Dr. Wai Arreola (RBC) [Entitic vol]81.8 iTIyndds43.0-94.0The [facility] CampusComment on above:Performed By: #### CBC #### [facility] [address] [place] [address] Dr. Wai Fitzpatrick #0.5 103/ulNormal0.3-0.8The [facility] CampusComment on above:Performed By: #### CBC #### [facility] [address] [place] [address] Dr. Wai Meadowsocytes/100 WBC (Bld)6.5 %Normal1.7-12.0The [facility] Comment on above:Performed By: #### CBC #### [facility] [address] [place] [address] Dr. Wai Gonzales #6.5 103/ulNormal1.4-6.5The [facility] CampusComment on above:Performed By: #### CBC #### [facility] [address] [place] [address] Dr. Wai Glezutrophils/100 WBC (Bld)78.0 %Critically high43.0-75.0The [facility] CampusComment on above:Performed By: #### CBC #### [facility] [address] [place] [address] Dr. Wai VallejoPlatelet mean volume (Bld) [Entitic vol]9.0 fLCritically low 9.5-13.5The [facility] CampusComment on above:Performed By: #### CBC #### [facility] [address] [place] [address] Dr. Wai VallejoPLT310 103/ljLdstgy471-950Btl [facility] CampusComment on above: Performed By: #### CBC #### [facility] [address] [address] [address] Wai VallejoRBC5.34 106/ulNormal4.70-6.10The [facility] CampusComment on above:Performed By: #### CBC #### [facility] [address] [place] [address] Dr. Wai VallejoWBC8.3 103/ulNormal4.0-11.0The [facility] CampusComment on above: Performed By: #### CBC #### [facility] [address] [place] [address] Dr. Wai VallejoCT STROKE HEAD WOon [id number] STROKE HEAD WOHEAD CT WITHOUT CONTRAST: 06/19/2022 [...] Electronically authenticated by: CHAVA ARMSTRONG Date: 2022-06-19 10:49[facility] NECK WO W CONon [id number] NECK WO W CONEXAMINATION: CTA HEAD WO [...] Electronically authenticated by: ALFONSO BELL Date: 2022-06-19 15:35NoThe Christ HospitalCovid-19 PCR (CVDTBH)on 03-91-9297PPHX-CoV-2 (COVID-19) RNA TC+probe Ql (Unsp spec)Not detectedNormalNOT DETECTEDThe St[facility] Comment on above:Result Comment: When diagnostic testing [...] for this test is supported by the [place] of Health and Human Service's declaration that [...] longer be used).Performed By: #### CBC #### [facility] [address] [place] [address] Dr. Wai VallejoLIFEBRITE COMM[facility]ITY [facility]LY GLUCOSEon 04-39-1837Lozwaik [Mass/Vol]511 mg/dL Critically bqvk38-565BbgOhioHealth Mansfield Hospital on above:Result Comment: Will Repeat TestPerformed By: #### POCGLUC #### [facility] [address] [place] [address] Dr. Wai VallejoGlucose [Mass/Vol]489 mg/dLCritically jljf75-894TszOur Lady Of Mercy Hospital - AndersonCommary [facility] on above:Performed By: #### POCGLUC #### [facility] [address] [place] [address] Dr. Wai VallejoGlucose [Mass/Vol]361 mg/dLCritically zyib96-203BphOur Lady Of Mercy Hospital - AndersonCommary [facility] on above:Performed By: #### CBC #### [facility] [address] [place] [address] Dr. Wai VallejoPROF 14(COMP METB)on 62-34-4200Rzfcqmu [Mass/Vol]4.1 g/dLNormal 3.4-5.0[facility] on above:Performed By: #### CMP #### [facility] [address] [place] [address] Dr. Wai VallejoAlbumin/Globulin [Mass ratio]1.2 {ratio}NormalOur Lady Of Mercy Hospital - AndersonCommary [facility] rehabilitation hospital on above:Performed By: #### CMP #### [facility] [address] [place] [address] Dr. Wai Naranjo [Catalytic activity/Vol]68 U/VRehbwr35-882RdpOur Lady Of Mercy Hospital - AndersonCommary [facility] on above:Performed By: #### CMP #### [facility] [address] [place] [address] Dr. Wai Argueta [Catalytic activity/Vol]33 U/WTcuxxj66-28Idp [facility] on above:Performed By: #### CMP #### [facility] [address] [place] [address] Dr. Wai Villasenor gap [Moles/Vol]13.4 mmol/LNormalThe [facility] Comment on above:Performed By: #### CMP #### [facility] [address] [address] [address] Wai VallejoAST [Catalytic activity/Vol]21 U/BClhkml27-11Crh [facility] CampusComment on above:Performed By: #### CMP #### [facility] [address] [address] [address] Wai VallejoBilirubin [Mass/Vol]1.5 mg/dLCritically high0.2-1.0The [facility] CampusComment on above:Performed By: #### CMP #### [facility] [address] [address] [address] Wai VallejoCalcium [Mass/Vol]9.3 mg/dLNormal8.5-10.1[facility] Comment on above:Performed By: #### CMP #### [facility] [address] [address] [address] Wai VallejoChloride [Moles/Vol]99 mmol/AJwtwog60-503Avv [facility] Comment on above:Performed By: #### CMP #### [facility] [address] [address] [address] Wai VallejoCO2 [Moles/Vol]23.9 mmol/GSrzvov65.0-32.0[facility] Comment on above:Performed By: #### CMP #### [facility] [address] [address] [address] Wai VallejoCreatinine [Mass/Vol]0.87 mg/dLNormal0.70-1.30The [facility] CampusComment on above:Performed By: #### CMP #### [facility] [address] [address] [address] Wai IngramGFR-AF URUGUAYAN>60Normal>=60The [facility] CampusComment on above:Performed By: #### CMP #### [facility] [address] [address] [address] Wai IngramGFR-NON AF URUGUAYAN>60Normal>=60The [facility] CampusComment on above:Performed By: #### CMP #### [facility] [address] [address] [address] Wai VallejoGlobulin (S) [Mass/Vol]3.5 g/dLNormalThMary Rutan HospitalComment on above:Performed By: #### CMP #### [facility] [address] [address] [address] Wai VallejoGlucose [Mass/Vol]306 mg/dLCritically gtiv83-861Pan [facility] CampusComment on above:Performed By: #### CMP #### [facility] [address] [address] [address] Wai VallejoPotassium [Moles/Vol]3.3 mmol/LCritically low3.5-5.1The [facility] Methodist Hospitalment on above:Performed By: #### CMP #### [facility] [address] [address] [address] Wai VallejoProtein [Mass/Vol]7.6 g/dLNormal6.4-8.2The [facility] Comment on above:Performed By: #### CMP #### [facility] [address] [address] [address] Wai VallejoSodium [Moles/Vol]133 mmol/LCritically rvo529-845Gjo [facility] Hospitalment on above:Performed By: #### CMP #### [facility] [address] [address] [address] Wai VallejoUrea nitrogen [Mass/Vol]13.0 mg/dLNormal7.0-18.0The [facility] Hospitalment on above:Performed By: #### CMP #### [facility] [address] [address] [address] Wai VallejoUrea nitrogen/Creatinine [Mass ratio]14.9 mg/mgNormalThOhioHealth Hardin Memorial Hospital on above:Performed By: #### CMP #### [facility] [address] [address] [address] Wai VallejoPROTIMEon 21-90-5876SFI Coag (PPP) [Relative time]0.93 {INR} NormalThe [facility] on above:Performed By: #### PTT, PT #### [facility] [address] [place] [address] Dr. Wai Peguero [facility] Anne HospitalComment on above:Result Comment: DESIRED INR: 2.0 - 3.0 CONDITIONS NOT LISTED BELOW 2.5 - 3.5 FOR PROSTHETIC HEART VALVE REPLACEMENT 2.5 - 3.5 RECURRENT THROMBOSIS Performed By: #### PTT, PT #### [facility] [address] [place] [address] Dr. Wai VallejoPT Coag (PPP) [Time]9.9 sNormal9.0-11.6The [facility] Comment on above:Performed By: #### PTT, PT #### [facility] [address] [place] [address] Dr. Wai VallejoPTTon 56-79-7616yPGK Coag (Bld) [Time]25.2 tNlkmrz87.3-36.2The [facility] CampusComment on above:Performed By: #### PTT, PT #### [facility] [address] [place] [address] Dr. Wai VallejoTESTOSTERONE, TOTALon 32-29-5791Iygilmxgvnvd [Mass/Vol]421 ng/dL Hqzcte439-000MqdOhioHealth Mansfield Hospital on above:Result Comment: Adult male reference interval is based on a population of healthy nonobese males (BMI <30) between 19 and 39 years old. Pillo, et.al. JCEM 2017,102;8296-0705. PMID: [id number].Performed By: #### TESTTOT #### [facility] [address] [place] [address] Dr. Wai VallejoCBKarl AUTO DIFFon 68-99-3996OFDH #0.0 103/ulNormal0.0-0.1The [facility] on above:Performed By: #### CBC #### [facility] [address] [place] [address] Dr. Wai VallejoBasophils/100 WBC (Bld)0.4 %Normal0.2-2.0The [facility] Comment on above:Performed By: #### CBC #### [facility] [address] [place] [address] Dr. Wai Gonzales #0.2 103/ulNormal0.0-0.7The [facility] CampusComment on above: Performed By: #### CBC #### [facility] [address] [place] [address] Dr. Wai Ingramosinophils/100 WBC (Bld)2.6 %Normal0.9-7.0The [facility] Comment on above:Performed By: #### CBC #### [facility] [address] [place] [address] Dr. Wai Ingramrythrocyte distribution width (RBC) [Ratio]12.2 %Hglqsa76.0-15.[address] [facility] CampusComment on above:Performed By: #### CBC #### [facility] [address] [place] [address] Dr. Wai VallejoHematocrit (Bld) [Volume fraction]43.0 %Gmrnqb31.0-54.0The [facility] CampusComment on above:Performed By: #### CBC #### [facility] [address] [place] [address] Dr. Wai VallejoHemoglobin (Bld) [Mass/Vol]14.7 g/dYQqcnfi64.0-18.0The [facility] CampusComment on above:Performed By: #### CBC #### [facility] [address] [place] [address] Dr. Wai Lyon #0.02 10e3/ulNormal0.00-0.03The [facility] CampusComment on above:Performed By: #### CBC #### [facility] [address] [place] [address] Dr. Wai Lyon %0.3 %Normal0.0-0.5The [facility] CampusComment on above: Performed By: #### CBC #### [facility] [address] [place] [address] Dr. Wai Velarde #1.4 103/ulNormal1.2-3.8The [facility] CampusComment on above:Performed By: #### CBC #### [facility] [address] [place] [address] Dr. Wai Vallemphocytes/100 WBC (Bld)19.8 %Critically low20.5-60.0The [facility] CampusComment on above:Performed By: #### CBC #### [facility] [address] [place] [address] Dr. Wai Mena DIFF REQNONormalThe St[facility] CampusComment on above: Performed By: #### CBC #### [facility] [address] [place] [address] Dr. Wai Arreola (RBC) [Entitic mass]28.5 xoPbable52.9-34.0The [facility] CampusComment on above:Performed By: #### CBC #### [facility] [address] [place] [address] Dr. Wai Arreola (RBC) [Mass/Vol]34.2 g/fGVjmjpw49.9-35.2The [facility] CampusComment on above:Performed By: #### CBC #### [facility] [address] [place] [address] Dr. Wai Earl (RBC) [Entitic vol]83.5 uDJxvpip46.0-94.0The [facility] CampusComment on above:Performed By: #### CBC #### [facility] [address] [place] [address] Dr. Wai Fitzpatrick #0.5 103/ulNormal0.3-0.8The [facility] CampusComment on above:Performed By: #### CBC #### [facility] [address] [place] [address] Dr. Wai Meadowsocytes/100 WBC (Bld)6.9 %Normal1.7-12.0The [facility] Comment on above:Performed By: #### CBC #### [facility] [address] [place] [address] Dr. Yilan ChangNEUT #5.1 103/ulNormal1.4-6.5The [facility] CampusComment on above:Performed By: #### CBC #### [facility] [address] [place] [address] Dr. Wai Glezutrophils/100 WBC (Bld)70.0 %Galane46.0-75.0The [facility] CampusComment on above:Performed By: #### CBC #### [facility] [address] [place] [address] Dr. Wai VallejoPlatelet mean volume (Bld) [Entitic vol]9.1 fLCritically low 9.5-13.5The [facility] CampusComment on above:Performed By: #### CBC #### [facility] [address] [place] [address] Dr. Wai VlalejoPLT283 103/coXpymtt095-582Mto [facility] CampusComment on above: Performed By: #### CBC #### [facility] [address] [place] [address] Dr. Wai VallejoRBC5.15 106/ulNormal4.70-6.10The [facility] CampusComment on above:Performed By: #### CBC #### [facility] [address] [place] [address] Dr. Wai VallejoWBC7.3 103/ulNormal4.0-11.0The [facility] CampusComment on above: Performed By: #### CBC #### [facility] [address] [place] [address] Dr. Wai VallejoGLYCOHEMOGLOBIN A1Con 82-95-1116YGR RECOMMENDATIONSEE BELOWNormal The [facility] CampusComment on above:Result Comment: ADA RECOMMENDED LIMIT 4.0 - 6.0 ADA THERAPEUTIC TARGET < 7.0 ACTION SUGGESTED > 7.0Performed By: #### A1C #### [facility] [address] [place] [address] Dr. Wai VallejoGlucose [Mass/Vol]177 mg/dLNormalThMary Rutan HospitalComment on above:Performed By: #### A1C #### [facility] [address] [address] [address] Wai VallejoHbA1c (Bld) [Mass fraction]7.8 %Critically high4.5-6.2The [facility] CampusComment on above:Performed By: #### A1C #### [facility] [address] [address] [address] Wai JamesID PROFILEon 61-31-2005RIBX-HDL RATIO NORMSEE BELOWSCCI Hospital LimaComment on above:Result Comment: 3.3 - 4.4 LOW RISK 4.4 - 7.1 AVERAGE RISK 7.1 - 11.0 MODERATE RISK >11.0 HIGH RISKPerformed By: #### CMP, LIPID #### [facility] [address] [place] [address] Dr. Wai Milneresterol [Mass/Vol]153 mg/dLNormal<=200The [facility] Comment on above:Performed By: #### CMP, LIPID #### [facility] [address] [place] [address] Dr. Wai Milneresterol in HDL [Mass/Vol]41 mg/wFNvdtxw52-90Mxr [facility] CampusComment on above:Performed By: #### CMP, LIPID #### [facility] [address] [place] [address] Dr. Wai VallejoCholesterol in LDL [Mass/Vol]75.4 mg/dLSCCI Hospital LimaComment on above:Performed By: #### CMP, LIPID #### [facility] [address] [place] [address] Dr. Wai Milneresterjack.total/Cholesterol in HDL [Mass ratio]3.7 {ratio} NormalThe St. [facility] CampusComment on above:Performed By: #### CMP, LIPID #### [facility] [address] [place] [address] Dr. Wai VallejoHDL NORMAL> or = 60 mg/dl - LOW CARDIOVASCULAR RISK <40 mg/dl - HIGH CARDIOVASCULAR RISKSCCI Hospital LimaComment on above:Performed By: #### CMP, LIPID #### [facility] [address] [place] [address] Dr. Wai Vazquez CALC NORMALSEE BELOWNoThe Christ HospitalComment on above:Result Comment: <100 mg/dl OPTIMAL 100 - 129 mg/dl NEAR OR ABOVE OPTIMAL 130 - 159 mg/dl BORDERLINE HIGH 160 - 189 mg/dl HIGH >190 mg/dl VERY HIGH Performed By: #### CMP, LIPID #### [facility] [address] [place] [address] Dr. Wai VallejoTriglyceride [Mass/Vol]183 mg/dLCritically high<=150The [facility] Hospitalment on above:Performed By: #### CMP, LIPID #### [facility] [address] [place] [address] Dr. Wai VallejoVLDL CALC36.6 mg/dLNoThe Christ HospitalComment on above: Performed By: #### CMP, LIPID #### [facility] [address] [place] [address] Dr. Wai BarahonaALBUMIN, RAND URon 71-37-8925uFNG<1.3Normal<=30.0The [facility] CampusCommary [facility] rehabilitation hospital on above:Performed By: #### MALBR #### [facility] [address] [place] [address] Dr. Wai López 14(COMP METB)on 94-29-7598Fbanmuq [Mass/Vol]3.7 g/dLNormal 3.4-5.0The [facility] CampusComment on above:Performed By: #### CMP, LIPID #### [facility] [address] [place] [address] Dr. Wai VallejoAlbumin/Globulin [Mass ratio]1.0 {ratio}NormalThe St. [facility] CampusCommary [facility] on above:Performed By: #### CMP, LIPID #### [facility] [address] [place] [address] Dr. Wai Naranjo [Catalytic activity/Vol]53 U/SJmzreh60-533Ygh [facility] CampusComment on above:Performed By: #### CMP, LIPID #### [facility] [address] [place] [address] Dr. Wai Argueta [Catalytic activity/Vol]32 U/IRhrock52-30Nlw [facility] CampusComment on above:Performed By: #### CMP, LIPID #### [facility] [address] [place] [address] Dr. Wai Soteloon gap [Moles/Vol]10.0 mmol/LNormalOur [facility] Comment on above:Performed By: #### CMP, LIPID #### [facility] [address] [place] [address] Dr. Wai VallejoAST [Catalytic activity/Vol]17 U/EBnejms46-12Ydl [facility] CampusComment on above:Performed By: #### CMP, LIPID #### [facility] [address] [place] [address] Dr. Wai VallejoBilirubin [Mass/Vol]1.5 mg/dLCritically high0.2-1.0The [facility] CampusComment on above:Performed By: #### CMP, LIPID #### [facility] [address] [place] [address] Dr. Wai VallejoCalcium [Mass/Vol]9.0 mg/dLNormal8.5-10.1[facility] Comment on above:Performed By: #### CMP, LIPID #### [facility] [address] [place] [address] Dr. Wai VallejoChloride [Moles/Vol]101 mmol/YUrqmku41-370BpuOur Lady Of Mercy Hospital [facility] Comment on above:Performed By: #### CMP, LIPID #### [facility] [address] [place] [address] Dr. Wai VallejoCO2 [Moles/Vol]30.0 mmol/XEgvwfb66.0-32.0The [facility] Comment on above:Performed By: #### CMP, LIPID #### [facility] [address] [place] [address] Dr. Wai VallejoCreatinine [Mass/Vol]0.81 mg/dLNormal0.70-1.30The [facility] CampusComment on above:Performed By: #### CMP, LIPID #### [facility] [address] [address] [address] Wai IngramGFR-AF URUGUAYAN>60Normal>=60The [facility] CampusComment on above:Performed By: #### CMP, LIPID #### [facility] [address] [address] [address] Wai IngramGFR-NON AF URUGUAYAN>60Normal>=60The [facility] CampusComment on above:Performed By: #### CMP, LIPID #### [facility] [address] [address] [address] Wai VallejoGlobulin (S) [Mass/Vol]3.6 g/dLNormalThe St. [facility] CampusComment on above:Performed By: #### CMP, LIPID #### [facility] [address] [place] [address] Dr. Wai VallejoGlucose [Mass/Vol]192 mg/dLCritically zmur65-015Aug [facility] CampusComment on above:Performed By: #### CMP, LIPID #### [facility] [address] [place] [address] Dr. Wai VallejoPotassium [Moles/Vol]4.0 mmol/LNormal3.5-5.1The [facility] Comment on above:Performed By: #### CMP, LIPID #### [facility] [address] [place] [address] Dr. Wai VallejoProtein [Mass/Vol]7.3 g/dLNormal6.4-8.2[facility] Anderson Comment on above:Performed By: #### CMP, LIPID #### [facility] [address] [place] [address] Dr. Wai VallejoSodium [Moles/Vol]137 mmol/EEnxvbc888-512Byf [facility] Comment on above:Performed By: #### CMP, LIPID #### [facility] [address] [place] [address] Dr. Wai VallejoUrea nitrogen [Mass/Vol]13.0 mg/dLNormal7.0-18.0The [facility] CampusComment on above:Performed By: #### CMP, LIPID #### [facility] [address] [address] [address] Wai VallejoUrea nitrogen/Creatinine [Mass ratio]16.0 mg/mgSCCI Hospital LimaComment on above:Performed By: #### CMP, LIPID #### [facility] [address] [address] [address] Wai Vallejo Vital Signs Date TimeVital SignValuePerforming KjcxkyecxGdcyhphq10-39-8131 10:18-0400Body .8 cmBenjamin Ball DO Work Phone: [phone] [place], [place] 8122410-01-2025 10:18-0400 Body mass index (BMI) [Ratio]24.7 kg/u9Ozmvqdkh Ball DO Work Phone: 1([phone] [place], [place] 7077710-01-2025 10:18-0400 Body svoakg58.13 kgBenjamin Ball DO Work Phone: 1(768)[address]10-01-2025 10:18-0400 Diastolic blood odualkfe00 mm[Hg]Max Ball DO Work Phone: 1(046)264-[address] [place], [place] 8122410-01-2025 10:18-0400 Heart rate80 /minBenjamin Ball DO Work Phone: 1(438)[facility] [place], [place] 8122410-01-2025 10:18-0400 Respiratory rate12 /minBenjamin Ball DO Work Phone: 1(571)[facility] [place], [place] 8122410-01-2025 10:18-0400 Systolic blood mm[Hg]Max Ball DO Work Phone: 1([phone])[address]08-11-2025 10:21-0400 Body anlsha967.3 cmJason Brown DO Work Phone: [facility] HospitalUugmqwdgqu64-96-0442 10:21-0400Body mass index (BMI) [Ratio]27.47 kg/e2Jtaja Brown DO Work Phone: [facility] HospitalUlkuacffog40-29-0826 10:21-0400Body jwguqq50.37 kgJason Brown DO Work Phone: 1(419)[address]07-09-2025 10:15-0400Body ejlwvh606.8 cmBenjamin Ball DO Work Phone: [facility]07-09-2025 10:15-0400 Body mass index (BMI) [Ratio]23.8 kg/m4Qepxbwsr Ball DO Work Phone: [phone] 10:15-0400 Body eutvcg90.52 kgBenjamin Ball DO Work Phone: [phone] 10:15-0400 Diastolic blood kcrozsxe20 mm[Hg]Max Ball DO Work Phone: [phone] 10:15-0400 Heart rate74 /minBenjamin Ball DO Work Phone: [phone]5 10:15-0400 Respiratory rate12 /minBenjamin Ball DO Work Phone: 1(667)431-45[facility]07-09-2025 10:15-0400 Systolic blood ibesmesd163 mm[Hg]Max Ball DO Work Phone: [phone])266-99[facility]07-03-2025 15:38-0400 Body nostxr541.3 cmJason Brown DO Work Phone: [phone]landMeryvjrubn09-82-1155 15:38-0400Body mass index (BMI) [Ratio]27.47 kg/k1Imqco Brown DO Work Phone: 1(962)[facility] [place], [place] [address]Dzpmghcypj61-12-4875 15:38-0400Body .37 kgJason Brown DO Work Phone: 1(887)[facility]-4340[facility]landNfcnuyvyqs97-04-8154 10:13-0400Body xhylog978.3 cmTtere Lyburn PA Work Phone: 1(542)[facility] [place], [place] [address]Azzizdhukq98-23-7825 10:13-0400Body mass index (BMI) [Ratio]27.47 kg/m2Rosi Lyburn PA Work Phone: 1(480)9-[address] [place], [place] [address]Puugnkadmj82-13-0501 10:13-0400Body kcgkwe00.37 kgTodd Lyburn PA Work Phone: 1(086)325-[address] [place], [place] [address]Azljymhzwo26-58-4266 09:55-0400Body hhspib726.3 cmZen Brown DO Work Phone: 1(791)[facility]-0062[facility] NorthlandXkgetkpkfc80-02-1709 09:55-0400Body mass index (BMI) [Ratio]27.47 kg/g6Mrgzq Brown DO Work Phone: 1(607)[address] [place], [place] 5308306-12-2025 09:55-0400Body ikpprc25.37 kgZen Brown DO Work Phone: 1(614)[address] [place], [place] 5308305-20-2025 11:10-0400Body xxfvob423.8 cmBenjamin Ball DO Work Phone: [phone] 11:10-0400 Body mass index (BMI) [Ratio]23.8 kg/p7Banxltyn Ball DO Work Phone: 1([phone])[address]05-20-2025 11:10-0400 Body rxtekm55.35 kgBenjamin Ball DO Work Phone: 1([phone] [place], [place] 8122405-20-2025 11:10-0400 Diastolic blood wkonxmdo41 mm[Hg]Max Ball DO Work Phone: 1(480)061-[address] [place], [place] 8122405-20-2025 11:10-0400 Heart rate80 /minBenjamin Ball DO Work Phone: 1(499)543-[address] [place], [place] 8122405-20-2025 11:10-0400 Respiratory rate12 /minBenjamin Ball DO Work Phone: 1(957)644-[address] [place], [place] 8122405-20-2025 11:10-0400 Systolic blood acncxrvv189 mm[Hg]Max Ball DO Work Phone: 1(834)073-[address] [place], [place] 8122404-24-2025 10:30-0400 Body owjdbh694.8 cmOhiohealth04-24-2025 10:30-0400Body mass index (BMI) [Ratio]24.4 kg/i8ObmvcxdqcOhiohealth04-24-2025 10:30-0400Body mnkcuc51.33 kgOhiohealth04-24-2025 10:30-0400Diastolic blood qcfplbyo54 mm[Hg][facility] 07-18-2024 10:30-0400Heart rate83 /[facility] 07-18-2024 10:30-0400Respiratory rate12 /[facility] 07-18-2024 10:30-0400Systolic blood fyvwznkb522 mm[Hg][facility]04-10-2025 10:13-0400Body cguoqu172.3 cmZen Rdz [employer] Work Phone: [phone])[address] [place], [place] 5308304-10-2025 10:13-0400Body mass index (BMI) [Ratio]27.47 kg/o2OeuguZen Rdz DO Work Phone: 1(636)[address] [place], [place] 5308304-10-2025 10:13-0400Body njozer84.37 kgZen Rdz DO Work Phone: 1(055)[address] [place], [place] 5308303-13-2025 09:59-0400Body uqovro720.3 cmZen Rdz DO Work Phone: 1(662)[address] [place], [place] 5308303-13-2025 09:59-0400Body mass index (BMI) [Ratio]27.62 kg/e3DloowZen Rdz DO Work Phone: 1(181)[address] [place], [place] 5308303-13-2025 09:59-0400Body umduya48.82 kgZen Rdz DO Work Phone: 1(185)[address] [place], [place] 5308302-27-2025 11:15-0500Hourly Rounding Zne Rdz [address] [place], [place] [address]Comment on above:Result Comment: reviewed discharge ppwork, no ehmzegudp65-68-1476 11:15-0500Promise to ReturnZen Rdz [address] [place], [place] 5986302-27-2025 10:00-0500Heart rate80 /Isabela Rdz [address] [place], [place] 5986302-27-2025 10:00-0500 Hourly RoundingZen Rdz [address] [place], [place] [address]Comment on above:Result Comment: pt tolersted ambulating very well to bathroom, at bedside 05-23-2024 10:00-0500Promise to ReturnZen Rdz [address] [place], [place] 5986302-27-2025 10:00-0500 Respiratory rate17 /minZen Rdz [address] [place], [place] 0384402-27-2025 09:31-1236KyD8% (BldA) [Mass fraction]97 %Zen Rdz [address] [place], [place] 0384402-27-2025 09:21-0500 Hourly RoundingZen Rdz [address] [place], [place] [address]Comment on above:Result Comment: noted to have slight swelling to upper left -68-7545 09:18-0500 Promise to ReturnZen Rdz [address] [place], [place] 5986302-27-2025 09:00-0500Blood Pressure LocationZen Rdz [address] [place], [place] 5986302-27-2025 09:00-0500 Diastolic blood szuqwmho67 mm[Hg]Zen Rdz [address] [place], [place] 5986302-27-2025 09:00-0500Mean blood hhtfinfw69 mm[Hg]Zen Rdz [address] [place], [place] 5986302-27-2025 09:00-0500 Systolic blood ttqjylno276 mm[Hg]Zen Rdz [address] [place], [place] 5986302-27-2025 08:00-0500 Diastolic blood gbexizha64 mm[Hg]Zen Rdz [address] [place], [place] 5986302-27-2025 08:00-0500Mean blood dsyvqomm41 mm[Hg]Zen Rdz [address] [place], [place] 5986302-27-2025 08:00-0500 Systolic blood tocoorvb436 mm[Hg]Zen Rdz [address] [place], [place] 5986302-27-2025 07:40-0500gluc 161 mg/dLZen Rdz [address] [place], [place] 5986302-27-2025 07:00-0500Body zqvvfgobbql78.88 [degF]Zen Rdz [address] [place], [place] 5986302-27-2025 07:00-0500 Diastolic blood vpxsernc47 mm[Hg]Zen Rdz [address] [place], [place] 5986302-27-2025 07:00-0500Mean blood mm[Hg]Zen Rdz [address] [place], [place] 0384402-27-2025 07:00-0500 Systolic blood mm[Hg]Zen Rdz [address] [place], [place] 0384402-27-2025 06:27-0500Heart rate74 /Isabela Rdz [address] [place], [place] 5986302-27-2025 06:27-0500 Respiratory rate16 /Isabela Rdz [address] [place], [place] 5986302-27-2025 05:43-0500Heart rate73 /Isabela Rdz [address] [place], [place] 5986302-27-2025 05:43-0500 Respiratory rate12 /Isabela Rdz [address] [place], [place] 5986302-27-2025 04:11-0500Body ipkuhxhbbuy21.06 [degF]Zen Rdz [address] [place], [place] 5986302-27-2025 04:11-0500Heart rate77 /Isabela Rdz [address] [place], [place] 0384402-26-2025 20:00-0500Body rpcfvtkkefy54.42 [degF]Zen Rdz [address] [place], [place] 5986302-26-2025 16:55-0500Body xpcvezzmmzh94.06 [degF]Zen Kajal [address] [place], [place] 5986302-26-2025 15:55-0500Body rrkidccuckr00.24 [degF]Zen Rdz [address] [place], [place] 5986302-26-2025 15:10-0500Body amlyszmltan62.24 [degF]Zen Rdz [address] [place], [place] 5986302-26-2025 12:53-0500gluc 183 mg/dLReynaldodebra Kajal [address] [place], [place] 5986302-26-2025 08:00-0500Mean blood jnxtsupz10 mm[Hg]Zen Kajal [address] [place], [place] 5986302-26-2025 07:59-0500Body nqvvqrepugz49.52 [degF]Zen Rdz [address] [place], [place] 5986302-26-2025 07:59-0500Mean blood wiijsyen93 mm[Hg]Zen Rdz [address] [place], [place] 5986302-20-2025 09:46-0500Body rpweag432.3 cmZen Kajal MIJARES Work Phone: 1(981)[address] [place], [place] 5308302-20-2025 09:46-0500Body mass index (BMI) [Ratio]27.62 kg/e9Jwkrj Kajal MIJARES Work Phone: 1(160)[address] [place], [place] 5308302-20-2025 09:46-0500Body ptxiad63.82 kgZen Kajal MIJARES Work Phone: 1(402)[address] [place], [place] 5308302-04-2025 13:28-0500Diastolic blood wyaboscl32 mm[Hg]Zen Rdz [address] [place], [place] 5986302-04-2025 13:28-0500Heart rate69 /minZen Rdz [address] [place], [place] 5986302-04-2025 13:28-0500Mean blood gqohntej93 mm[Hg]Zen Rdz [address] [place], [place] 5986302-04-2025 13:28-0500 Systolic blood bwjroidw293 mm[Hg]Zen Rdz [address] [place], [place] 5986302-04-2025 13:27-0500Heart rate74 /Isabela Rdz [address] [place], [place] 5986302-04-2025 13:27-0500 Respiratory rate18 /minZen Rdz [address] [place], [place] 5986302-04-2025 13:27-5016GlE5% (BldA) [Mass fraction]97 %Zen Rdz [address] [place], [place] 5986302-04-2025 13:27-0500 Diastolic blood kyjumplw45 mm[Hg]Zen Rdz [address] [place], [place] 5986302-04-2025 13:27-0500Mean blood uykqvrbx28 mm[Hg]Zen Rdz [address] [place], [place] 5986302-04-2025 13:27-0500 Systolic blood khusxidr313 mm[Hg]Zen Rdz [address] [place], [place] 5986312-23-2024 10:32-0500Body uxqplp827.3 cmAllison Petznick DO Work Phone: no[facility] HospitalZabdwuwatf32-29-8035 10:32-0500Body mass index (BMI) [Ratio]27.62 kg/s4Ainrels Petznick DO Work Phone: no[facility] HospitalOctyunnumw58-92-4409 10:32-0500Body temperature 98.49 [degF]Rose Petznick DO Work Phone: no[facility] HospitalZqmdhnyyia17-96-0253 10:32-0500Body abodzx87.82 kgAllison Petznick DO Work Phone: no[facility] HospitalPhfyxitkga73-18-7573 10:32-0500Diastolic blood pgkohwwv05 mm[Hg]Rose Petznick DO Work Phone: no[facility] HospitalUojhmzrlmx09-50-1528 10:32-0500Heart rate65 /min Rose Petznick DO Work Phone: no[facility] HospitalItsnpxancs68-15-9699 10:32-2493TnS3% (BldA) [Mass fraction]98 %Rose Petznick DO Work Phone: no[facility] HospitalHcnmnxgzwr65-78-3223 10:32-0500Systolic blood mm[Hg]Rose Petquiqueick DO Work Phone: NOS[facility] HospitalUrxrhayeec22-87-9502 07:55-0400Body .3 cmZen Rdz DO Work Phone: [facility] HospitalUnwzdutuzi73-44-8700 07:55-0400Body mass index (BMI) [Ratio]27.62 kg/b3GgshoZen Rdz DO Work Phone: N[facility] HospitalKbzynfbbku58-60-2265 07:55-0400Body temperature 97.5 [degF]Zen Rdz DO Work Phone: NOS[facility] HospitalAccuapobfx26-32-9962 07:55-0400Body .82 kgZen Rdz DO Work Phone: N[facility] HospitalRmtgtgyhnu78-20-2823 09:58-0400Body uegdwz316.3 cmAlala Dick DO Work Phone: noS[facility] HospitalNjswmzcqli05-69-6284 09:58-0400Body mass index (BMI) [Ratio]27.62 kg/o4Buskpvi Petznick DO Work Phone: NOS[facility] HospitalAqkwjegfuh37-26-6614 09:58-0400Body temperature 99.1 [degF]Rose Petznick DO Work Phone: [address] [address]Rgppjkccxd42-14-0381 09:58-0400Body rxhcul61.82 kgAllannie Petznick DO Work Phone: [address] [address]Cnqxmcwgtw69-87-3337 09:58-0400Diastolic blood wjasfjaq95 mm[Hg]Rose Petznick DO Work Phone: [address] [address]Xqipjkigpk19-01-3455 09:58-0400Heart rate87 /min Rose Petznick DO Work Phone: [facility]landYyocuafcly07-47-7242 09:58-0258LeF1% (BldA) [Mass fraction]95 %Rose Dick DO Work Phone: [facility]landUdzbbbqtbe61-83-5656 09:58-0400Systolic blood erfdujmm753 mm[Hg]Rose Dick DO Work Phone: [facility] NorthlandWqwgrellee52-68-3825 13:41-0400Body yetgfb005.8 cmDO Max Ball Work Phone: [facility]06-19-2024 13:41-0400 Body mass index (BMI) [Ratio]27.3 kg/m2DO Max Ball Work Phone: [facility]06-19-2024 13:41-0400 Body sdrbap30.23 kgDO Max Ball Work Phone: [facility]06-19-2024 13:41-0400 Diastolic blood pxcmagps42 mm[Hg]DO Max Ball Work Phone: [facility]06-19-2024 13:41-0400 Heart dfqt867 /Randy Santana Ball Work Phone: [facility]06-19-2024 13:41-0400 Respiratory rate12 /Randy Santana Ball Work Phone: [facility]06-19-2024 13:41-0400 Systolic blood udjrgcqj139 mm[Hg]DO Max Ball Work Phone: [facility]04-12-2024 11:07-0400 Body .8 cmOhio[facility]04-12-2024 11:07-0400Body mass index (BMI) [Ratio]27.1 kg/d9KdrgtenjhOhiohealth04-12-2024 11:07-0400Body rpwjex08.95 kgOhiohealth04-12-2024 11:07-0400Diastolic blood iiznejtp59 mm[Hg][facility] 07-07-2023 11:07-0400Heart rate96 /[facility] 07-07-2023 11:07-0400Respiratory rate12 /[facility] 07-07-2023 11:07-0400Systolic blood xgzyvohg909 mm[Hg][facility]01-12-2024 12:06-0500Heart rate71 /Isabela Rdz [address] [place], [place] 0384401-12-2024 12:06-2080DmJ3% (BldA) [Mass fraction]98 %Zen Rdz [address]01-12-2024 12:06-0500 Diastolic blood izypboja66 mm[Hg]Zen Kajal [address] [place], [place] 0384401-12-2024 12:06-0500Mean blood iftuoeqp16 mm[Hg]Zen Kajal [address] [place], [place] 0384401-12-2024 12:06-0500 Systolic blood qdlrmasf262 mm[Hg]Zen Kajal [address]01-12-2024 12:06-0500 Respiratory rate16 /Isabela Rdz [address] [place], [place] 0384401-12-2024 11:16-0500Heart rate70 /Isabela Rdz [address] [place], [place] 0384401-12-2024 11:16-4214GlN8% (BldA) [Mass fraction]95 %Zen Kajal [address] [place], [place] 5986301-12-2024 11:14-0500 Respiratory rate16 /Isabela Rdz [address] [place], [place] 0384401-12-2024 11:14-0500Body rbgwuhuocva86.34 [degF]Zen Kajal [address] [place], [place] 0384401-12-2024 11:13-0500 Diastolic blood igwkmbon34 mm[Hg]Zen Rdz [address] [place], [place] 0384401-12-2024 11:13-0500Mean blood rggfjijb51 mm[Hg]Zendebra Rdz [address] [place], [place] 0384401-12-2024 11:13-0500 Systolic blood iyhtujkh291 mm[Hg]Zen Rdz [address] [place], [place] 0384401-12-2024 11:00-0500 Diastolic blood mytmcffw93 mm[Hg]Zen Rdz [address] [place], [place] 0384401-12-2024 11:00-0500Mean blood upvcefml39 mm[Hg]Zen Rdz [address] [place], [place] 0384401-12-2024 11:00-0500 Respiratory rate14 /Khadijahdebra Rdz [address] [place], [place] 0384401-12-2024 11:00-3698UyE6% (BldA) [Mass fraction]92 %Zen Rdz [address] [place], [place] 0384401-12-2024 11:00-0500 Systolic blood pcikyqxc204 mm[Hg]Zen Rdz [address] [place], [place] 0384401-12-2024 10:50-0500Mean blood khiwbyyo47 mm[Hg]Zen Kajal [address] [place], [place] 0384401-12-2024 10:50-0500 Respiratory rate12 /Isabela Rdz [address] [place], [place] 5986301-12-2024 10:45-0500Mean blood kkitcoos00 mm[Hg]Zen Kajal [address] [place], [place] 5986301-12-2024 10:45-0500 Respiratory rate12 /Isabela Rdz [address] [place], [place] 0384401-12-2024 10:35-0500Body qrscqotavyb06.16 [degF]Zen Kajal [address] [place], [place] 0384401-12-2024 07:37-0500Mean blood qhljxufs83 mm[Hg]Zen Rdz [address] [place], [place] 0384401-12-2024 07:37-0500Blood Pressure LocationZen Rdz [address] [place], [place] 0384401-12-2024 07:36-0500 Respiratory rate16 /Isabela Rdz [address] [place], [place] 0384401-12-2024 07:36-0500Body gmgsszladpw13.52 [degF]Zen Rdz [address] [place], [place] 0384401-12-2024 07:36-0500Heart rate66 /Isabela Rdz [address] [place], [place] 0384401-12-2024 07:35-0500Blood Pressure LocationZen Rdz [address] [place], [place] 0384412-28-2023 08:29-0500 Diastolic blood ukbduntr01 mm[Hg]eZn Rdz [address] [place], [place] 0384412-28-2023 08:29-0500Heart rate64 /Isabela Rdz [address] [place], [place] 0384412-28-2023 08:29-0500Mean blood etntkknd538 mm[Hg]Zen Rdz [address] [place], [place] 0384412-28-2023 08:29-0500 Systolic blood kekfvzfl654 mm[Hg]Zen Rdz [address] [place], [place] 0384412-28-2023 08:29-0500Heart rate74 /Isabela Rdz [address] [place], [place] 0384412-28-2023 08:29-0104TeD3% (BldA) [Mass fraction]99 %Zen Rdz [address] [place], [place] 0384412-28-2023 08:28-0500 Respiratory rate18 /Isabela Rdz [address] [place], [place] 0384412-28-2023 08:28-0500Body ccknctlcaaa71.88 [degF]Zen Rdz [facility]12-28-2023 08:28-0500 Diastolic blood zzrjokca74 mm[Hg]Zen Rdz [facility]12-28-2023 08:28-0500Mean blood pnllqoxm291 mm[Hg]Zen Rdz [facility]12-28-2023 08:28-0500 Systolic blood zqjocltt316 mm[Hg]Zen Rdz [facility]12-08-2023 08:45-0500Body .8 cmBenjamin Ball Other [facility] [employer] Other 12-08-2023 08:45-0500Body mass index (BMI) [Ratio] 26.43 kg/n6Amxwmhnv Ball Other [facility] [employer] Other 12-08-2023 08:45-0500Body boande32.55 kgBenjamin Ball Other [facility] [employer] Other 12-08-2023 08:45-0500Diastolic blood ufksgfnd08 mm[Hg] Max Ball Other [facility] [employer] Other 12-08-2023 08:45-0500Respiratory rate12 /minBenjamin Ball Other [facility] [employer] Other 12-08-2023 08:45-0500Systolic blood azqorejs362 mm[Hg] Max Ball Other [facility] [employer] Other 08-04-2023 14:15-0400Body .8 cmBenjamin Ball Other [employer] Other 08-04-2023 14:15-0400Body mass index (BMI) [Ratio] 26.31 kg/v9Livlnxho Ball Other [employer] Other 08-04-2023 14:15-0400Body vpbdyc20.19 kgBenjamin Ball Other [employer] Other 08-04-2023 14:15-0400Diastolic blood tbqiixvz87 mm[Hg] Max Ball Other [employer] Other 08-04-2023 14:15-0400Respiratory rate12 /minBenjamin Ball Other [employer] Other 08-04-2023 14:15-0400Systolic blood dllutqxa259 mm[Hg] Max Ball Other [employer] Other 04-26-2023 16:00-0400Body .8 cmBenjamin Ball Other [employer] Other 04-26-2023 16:00-0400Body mass index (BMI) [Ratio]27 kg/i2Rzstiztn Ball Other [employer] Other 04-26-2023 16:00-0400Body wvaoai57.37 kgBenjamin Ball Other [employer] Other 04-26-2023 16:00-0400Diastolic blood jrcxyjhn30 mm[Hg] Max Ball Other [employer] Other 04-26-2023 16:00-0400Respiratory rate12 /minBenjamin Ball Other [employer] Other 04-26-2023 16:00-0400Systolic blood cfepaeuh828 mm[Hg] Max Ball Other [employer] Other 04-04-2023 14:15-0400Body .8 cmBenjamin Ball Other [employer] Other 04-04-2023 14:15-0400Body mass index (BMI) [Ratio]26.4 kg/h1Ghmzpqxv Ball Other [employer] Other 04-04-2023 14:15-0400Body qamicd77.46 kgBenjamin Ball Other [employer] Other 04-04-2023 14:15-0400Diastolic blood mivnvqhc49 mm[Hg] Max Ball Other [employer] Other 04-04-2023 14:15-0400Respiratory rate12 /minBenjamin Ball Other [employer] Other 04-04-2023 14:15-0400Systolic blood ykklgdxz357 mm[Hg] Max Ball Other [employer] Other 03-28-2023 11:15-0400Body .8 cmBenjamin Ball Other [employer] Other 03-28-2023 11:15-0400Body mass index (BMI) [Ratio] 26.69 kg/g9Gxkzoxwb Ball Other [employer] Other 03-28-2023 11:15-0400Body eripli75.37 kgBenjamin Ball Other [facility] [employer] Other 03-28-2023 11:15-0400Diastolic blood zvfqeiba08 mm[Hg] Max Tucker Other [facility] [employer] Other 03-28-2023 11:15-0400Respiratory rate12 /minBesalvadorgurpreet Tucker Other [facility] [employer] Other 03-28-2023 11:15-0400Systolic blood zudocxqh697 mm[Hg] Max Tucker Other [employer] Other Encounters Encounter DateEncounter TypeCare ProviderFacilityStart: 01-13-2025 End: 43-12-6252Rmtedne encounter procedureZen Rzd Work Phone: [facility] OrthopaedicsComment on above:Left wrist pain (Primary Dx)Start: 01-13-2025 End: 08-93-8641lqebvononoAUGLF A BROWNNot AvailableStart: 01-13-2025 End: 83-13-6318rvjeacmhebQDXBM A BROWNNot AvailableStart: 12-25-2024 End: 12-55-4500xkayqkcmhbUbmsjzfr Garrett DO Work Phone: [facility] Work Phone: Start: 12-25-2024 End: 75-68-8673Wyfhwuh encounter procedureBechristi Tucker DO-[facility] Work Phone: Start: 11-18-2024 End: 41-88-5241Cflsjm outpatient visit 25 minutesVapeyman Kraus MD Work Phone: OrthopaedicsComment on above: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); S/P shoulder replacement, leftStart: 11-18-2024 End: 50-26-4192wdrigdiydyXABXB ENTEZARIFacility:[facility] Centertart: 11-04-2024 End: 83-81-4727Zqiome Harpal Daniel Rdz DO Work Phone: [facility]opaedicsStart: 11-04-2024 End: 98-99-0678Xfnzru Harpal Rdz DO Work Phone: [facility] OrthopaedicsStart: 11-04-2024 End: 77-01-3565Mlkvqha encounter procedureZen Rdz DO Work Phone: [facility] [place] OrthopaedicsComment on above:Status post total shoulder replacement, left (Primary Dx)Start: 11-04-2024 End: 59-48-9489eoawhewmzeAGKZR Daniel KAJALNot AvailableStart: 68-67-7418Esi-patient / Non-visitBechristi Garrett -[facility] Work Phone: Start: 10-28-2024 End: 55-33-3536phujmlxzrrPAGRO ENTEZARIFacility:[facility]art: 10-28-2024 End: 77-87-0396Jazjay outpatient new 45 minutesBrielle Kraus MD Work Phone: OrthopaedicsComment on above:Left shoulder pain, unspecified chronicity (Primary Dx); S/P shoulder replacement, left; Loose orthopedic implant, initial encounter; Instability of left shoulder jointStart: 10-28-2024 End: 26-06-0593mekmytqrdvWSFUC ENTEZARIFacility:[facility]ertart: 10-02-2024 End: 21-64-8438ocvkrrewizXwotuiwn Garrett DO Work Phone: [facility] Work Phone: Start: 10-02-2024 End: 01-82-4425Sbxoqwg encounter procedureBechristi Tucker DO-[facility] Work Phone: Start: 09-26-2024 End: 25-01-7506Outyktg encounter procedureZen Rdz DO Work Phone: noms NB ORTHOComment on above:Status post total shoulder replacement, left (Primary Dx)Start: 09-26-2024 End: 38-00-2311mlislzciufLGLFR A BROWNNot AvailableStart: 09-26-2024 End: 57-00-8200Lfbsib flowsTy Daniel Rdz DO Work Phone: [phone] ORTHOStart: 09-26-2024 End: 59-67-7718Xkmgeo flowsheetZen Daniel Rdz DO Work Phone: [phone] ORTHOStart: 09-24-2024 End: 00-86-2518Vsdeswdap Result EncounterZen Rdz DO Work Phone: [facility] External Department UnsolicitedStart: 09-24-2024 End: 65-48-9969Hmmprxgpa Result EncounterZen Sanchez Kajal DO Work Phone: [facility] External Department UnsolicitedStart: 09-24-2024 End: 63-03-9175rypuxcuyrbZAZulma RdzFacility:[facility]MCStart: 09-24-2024 End: 10-03-9305Nbcwkpv encounter procedureZen Rdz [facility] Start: 09-13-2024 End: 25-85-0863Hkqmhqu encounter Madai GIRARD Work Phone: [facility] NB ORTHOComment on above:Left shoulder pain, unspecified chronicity (Primary Dx); Status post total shoulder replacement, left; Acute postoperative pain of left shoulderStart: 09-13-2024 End: 45-12-2433duitkdroaxKOVE D HILLSNot AvailableStart: 09-05-2024 End: 80-30-9320Wkivwn Harpal Rdz DO Work Phone: [phone] ORTHOStart: 09-05-2024 End: 21-54-0959Garggs Harpal Rdz DO Work Phone: [phone] ORTHOStart: 09-05-2024 End: 79-66-9168Senrrlc encounter procedureZen Rdz DO Work Phone: N[facility]S NB ORTHOComment on above:Status post total shoulder replacement, left (Primary Dx)Start: 09-05-2024 End: 28-21-0197wnxhujxlwxNYPHJ A BROWNNot AvailableStart: 08-13-2024 End: 76-60-8034Tnwradp encounter procedureBengurpreet Garrett DO-[facility] Work Phone: Start: 07-18-2024 End: 12-40-2454qrlnvzybjqAfdxtojdrAdams County Hospital Work Phone: Start: 07-18-2024 End: 87-56-6184Xpphstl encounter procedureFirlake [facility] Work Phone: Start: 95-85-3027Fiy-patient / [facility] Work Phone: Start: 07-04-2024 End: 21-69-3070Flovogz encounter procedureJason Daniel Kajal MIJARES Work Phone: noms NB ORTHOComment on above:Status post total shoulder replacement, left (Primary Dx)Start: 07-04-2024 End: 94-69-5253nvoozmqzadTIZIW A BROWNNot AvailableStart: 07-04-2024 End: 80-39-1352lwnfsziaigQVTCW A BROWNNot AvailableStart: 06-14-2024 End: 77-03-9803ipmuaitpmkWJYFJAU M PETZNICKNot AvailableStart: 06-06-2024 End: 92-72-3900Stwgnrb encounter procedureJason A Kajal Work Phone: NOMS NB ORTHOComment on above:Status post total shoulder replacement, left (Primary Dx)Start: 06-06-2024 End: 63-93-3639izfqrlenatXCYPG A BROWNNot AvailableStart: 06-06-2024 End: 92-83-2539xffkapqqstHMABF A BROWNNot AvailableStart: 05-23-2024 End: 83-91-1690Zjnzhpaso Result EncounterJason A Kajal DO Work Phone: [facility]S External Department UnsolicitedStart: 05-23-2024 End: 17-10-9233Ssmrbrjpl Result EncounterJason A Kajal DO Work Phone: [facility] External Department UnsolicitedStart: 05-22-2024 End: 10-25-1762Bbaaxeong Result EncounterZen Rdz DO Work Phone: [facility] External Department UnsolicitedStart: 05-22-2024 End: 63-16-9838Xzwugmmhc Result EncounterZen Rdz DO Work Phone: [facility] External Department UnsolicitedStart: 05-22-2024 End: 33-38-6260vtqsimfdddYS Zen Sanchez KajalFacility:FTMCStart: 05-22-2024 End: 73-44-2772Ugbghod encounter procedureZen Daniel Kajal [facility] Start: 05-16-2024 End: 61-80-1297Cnikez flowsTy Rdz DO Work Phone: NOMS ORTHOStart: 05-16-2024 End: 23-96-2988Yyaupf flowsTy Rdz DO Work Phone: NOMS ORTHOStart: 05-16-2024 End: 93-96-2904Mkxsgsn encounter procedureZen Rdz DO Work Phone: NOMS NB ORTHOComment on above:Arthritis of left shoulder region (Primary Dx)Start: 05-16-2024 End: 59-66-0907oxdwdwrzaaTCLOC A BROWNNot AvailableStart: 04-30-2024 End: 23-83-7982Qtqzupjcz Result EncounterZen Rdz DO Work Phone: NOTI External Department UnsolicitedStart: 04-30-2024 End: 87-16-1491Efzswgxcy Result EncounterZen Rdz DO Work Phone: [facility] External Department UnsolicitedStart: 04-30-2024 End: 14-25-7949edxtpsvobfSpnek Daniel KajalFacility:FTMCStart: 04-30-2024 End: 03-04-0482Gouoaoo encounter procedureZen Daniel Kajal [facility] Start: 03-18-2024 End: 70-06-7258Oytsxg outpatient visit 25 minutesAllannie Dick DO Work Phone: noMS SWS FM 230Comment on above:Type 2 diabetes mellitus without complication, without long-term current use of insulin (CMS/HCC)Start: 03-18-2024 End: 49-44-8935fqlzgolfsuZLDANXH M PETZNICKNot AvailableStart: 21-04-8559Teexnbj encounter statusDayton VA Medical Centertart: 12-19-2023 End: 10-20-1339Wzjzxuk encounter procedureReynaldodebra Sanchez Kajal DO Work Phone: noms NB ORTHOComment on above:Arthritis of left shoulder region (Primary Dx)Start: 12-18-2023 End: 18-19-5353Mymsrn outpatient visit 25 minutesAllannie Dick DO Work Phone: noMS SWS FM 230Comment on above:Type 2 diabetes mellitus without complication, without long-term current use of insulin (CMS/HCC) (Primary Dx); Type 2 diabetes mellitus with hyperglycemia, without long-term current use of insulin (CMS/HCC)Start: 09-13-2023 End: 35-72-7453qivtyalmxdIE Max Garrett Work Phone: [facility] Work Phone: Start: 09-13-2023 End: 26-78-5424Gjysetm encounter procedureDO Max Tucker Work Phone: [facility] Work Phone: Start: 08-16-2023 End: 06-06-1054Nezcjdc encounter procedureDO Max Tucker Work Phone: [facility] [address] Work Phone: Start: 08-16-2023 End: 50-88-0528wcmcxqhjmyXP Max Tucker Work Phone: [facility] Work Phone: Start: 07-20-2023 End: 86-02-4572rfxvedkwqbRsiudjez Ball Other [employer] Other Start: 69-13-7837Fnpxmumiw encounterBengurpreet Tucker Medical ClinicStart: 07-07-2023 End: 39-95-2650gzhjnnhekgMvpprlqzcAdams County Hospital Work Phone: Start: 07-07-2023 End: 63-77-8306Ojmzbch encounter procedureFirkellys Physician [facility] Work Phone: Start: 89-76-8331Uxi-patient / Non-visitE[facility]-[employer] Work Phone: Start: 04-25-2023 End: 96-74-7000yedmfftlizUfchwhpa Ball Other [employer] Other Start: 32-59-4666Jldzfzmwx encounterBengurpreet Tucker Medical ClinicStart: 79-00-3594Micsxvo encounter procedureRachel Physician Group-Start: 04-07-2023 End: 55-76-1419Eaftsdyna to same day surgery Jessi Rdz [facility] Start: 03-23-2023 End: 38-55-3513Ncltfbm encounter procedureZen Rdz [facility] Start: 03-06-2023 End: 14-63-6882hnanvaxfcbOhikypgv Ball Other [employer] Other Start: 66-45-0513Zzduuazxw encounterBechristi Tucker Medical ClinicStart: 03-03-2023 End: 63-07-8728skelgmzekfZqpfqeql Ball Other [employer] Other Start: 09-75-2703Xovxbtobt for general adult medical examination without abnormal findingsBengurpreet GouldG [facility] Medical ClinicStart: 76-62-5477Mmctedwg preventive med est patient 40-64yrsBengurpreet GouldG [facility] ClinicStart: 02-20-2023 End: 56-96-4606oeawpowmljFvwrrlag Ball Other [employer] Other Start: 36-80-4733Zudxnzalq encounterBengurpreet GouldG [facility] ClinicStart: 11-25-2022 End: 06-24-2238crvohmqwhaBlulwxah Ball Other [employer] Other Start: 58-26-3107Xstpjvq evaluation of patient and reportBechristi GouldG [facility] ClinicStart: 11-01-2022 End: 68-01-0945dynmejrygyAlemxxta Ball Other [employer] Other Start: 21-66-6501Lzowqujfn encounterBenjamin Luis FernandoG [facility] ClinicStart: 10-28-2022 End: 48-16-1370fkqkazohueUseukgso Ball Other [employer] Other Start: 42-38-8126Wfvsno outpatient visit 25 minutes Max Luis FernandoG [facility] ClinicStart: 07-20-2022 End: 99-71-1811tdroensxxrEivfyjvp Ball Other [employer] Other start: 75-06-5141Ydxjuj outpatient visit 25 minutes Max BallALLG [facility] ClinicStart: 07-11-2022 End: 13-90-7912zdzxayggweTgljngow Ball Other [employer] Other Start: 30-27-6912Aolyfggii encounterBenjamin BallFPG [facility] ClinicStart: 07-06-2022 End: 90-54-3218wtwgjzgpjhNmfdnilr Ball Other [employer] Other Start: 82-60-5011Ogtvmevrr encounterBenjamin BallFPG [facility] ClinicStart: 06-28-2022 End: 73-67-7484otpmncsnuuFlspnxzj Ball Other [employer] Other Start: 19-55-2824Vbmvmd outpatient visit 15 minutes Max BallFPG [facility] ClinicStart: 06-21-2022 End: 56-92-0454erkmdndhdmRgscvbev Ball Other [employer] Other Start: 12-65-5904Fsprtb outpatient visit 25 minutes Max BallFPG [facility] ClinicStart: 06-20-2022 End: 89-17-2599osophfxsccWejdypwi Ball Other [employer] Other Start: 92-18-8306Xncazrpxo encounterBenjamin BallFPG [facility] ClinicStart: 06-19-2022 End: 17-46-2742ajszucmhqmWU MAX BALLFacility:W5Yymyv: 14-56-1733Vyxgxmqyl for general adult medical examination without abnormal findingsDR MAX GARRETT [facility] Systemtart: 02-19-2022 End: 61-88-3375hzalkenjdcWR MAX BALLFacility:H4Ifxnv: 02-19-2022 End: 24-35-4380Bcwyylznb for general adult medical examination without abnormal findingsDR MAX BALLFacility:H1 Procedures DateProcedureProcedure DetailPerforming ClinicianStart: 14-92-7021Oebck wrist complete minimum 3 Tori Rdz DO Work Phone: Start: 65-49-4255Hbil count misc body fluids w/differential countVapeyman Kraus MD Work Phone: Start: 77-36-7711Lbt bact xcpt urine blood/stool aerobic isolBrielle Kraus MD Work Phone: [phone]: 13-49-4348AZFKASPI FL,CRYSTAL ID/STAFF Faby Kraus MD Work Phone: [phone]: 59-90-3792XDIHAWRS FLUID MANUAL DIFFBrielle Kraus MD Work Phone: Start: 98-88-4858Oaauifgsfusnte aspir&/inj major jt/bursa w/o Patrick Kraus MD Work Phone: [phone]: 41-50-5319MV UPPER EXTREMITY W/ CONTRAST LEFT Zen A [employer] DO Work Phone: Start: 54-42-5502LP INJ SHOULDER ARTHROGRAM LEFTJason A [employer] DO Work Phone: Start: 58-34-1056EZZM CBC W/ AUTO DIFFJason A Brown DO Work Phone: Start: 28-96-7842Ofpyn shoulder complete minimum 2 viewsTodd D Zunilda PA Work Phone: Start: 94-37-3201Ekplt shoulder complete minimum 2 viewsJason A Brown DO Work Phone: Start: 53-86-0755Zumvv shoulder complete minimum 2 viewsJason A Brown DO Work Phone: Start: 23-91-1568Bjich shoulder complete minimum 2 viewsJason A Brown DO Work Phone: Start: 34-79-5486JPZX CBC W/ AUTO DIFFJason A Brown DO Work Phone: Start: 15-66-4147MK SHOULDER COMPLETE LEFTJason A Brown DO Work Phone: Start: 16-55-7522GPEA CAPILLARY GLUCOSE POCJason A Brown DO Work Phone: Start: 92-52-4011Bubxeygbzctj of left shoulderJason Brown Start: 60-53-1568MQ UPPER EXTREMITY W/O CONTRAST LEFT Zen Rdz DO Work Phone: Start: 64-65-8885VK WITH CULT RFLXZen Rdz DO Work Phone: Start: 25-44-5519Nhgeongjha glycosylated z7yCpgqdwrRose [employer] Work Phone: Start: 33-20-8883Buuramotof glycosylated q9lKgbldnxannie Dick DO Work Phone: Start: 04-84-8447Fcbiipclsjk of shoulder with biceps tenodesisZen Rdz Comment on above:with biceps tendonesis, subcromial decompression, and extensive debridmentStart: 55-26-8396INQ screeningSHAIKH FAWWADComment on above:Performed By: #### PSASC #### [facility] [address] [place] [address] Dr. Wai VallejoStart: 88-80-2135MnqbyrtidcopiktbgibjqlvynlHrdam Brown Memolane Comment on above:Egd/ColonoscopyStart: 85-58-5388Cykmon of umbilical herniaZen Rdz Memolane Start: 38-89-6133PreneaxhoaamSxwma Brown Memolane Start: 39-28-3073AqtfvsutybmFmrnpkd Jayshree [employer] Work Phone: Start: 13-80-5793QiblhaxmrjyKmunh Brown Memolane Start: 21-40-8137EpkbpmkzxkwqobqrsubwycbfnaRkugd Brown [employer]olane Start: 96-73-7697UifgdrbyazfclncFhgox Brown Memolane Arthroscopy of kneeZen Rdz Arthroscopy of kneeZen Rdz Cervical arthrodesisZen Rdz Memolane Depression screeningBenjamin Ball Other Plan of Treatment DateCare ActivityDetailAuthorStart: 20-70-0167Gvhvqobir vaccinationNOMS HealthcareStart: 11-18-2024 End: 04-40-8432Nctcqby encounter zcgoazzej08/25/2025 9:45 AM EDT Office Visit Orthopaedics [address] [address] Brielle Kraus MD [address] [place], [place] [id number] infection workup on 11/18 at 0945 for 30 mins apt, thank youOrthopaedics Comment on above:infection workup on 11/18 at 0945 for 30 mins apt, thank you Start: 11-04-2024 End: 94-00-2145Oakgzlf encounter rmutrgaft36/11/2025 10:30 AM EDT Office Visit [facility] [place] [facility] [address] [facility] [place] [phone] Zen Rdz, [address] [place] [address] ArrivedNOMS [place] OrthopaedicsComment on above:ArrivedStart: 09-26-2024 End: 16-52-8389Iuqfmzg encounter procedureNOMS NB ORTHOComment on above:Arrived Start: 09-16-2024 End: 49-70-0380Knalbec encounter iaaqiftzm48/23/2025 9:45 AM EDT Office Visit [facility] [address] [place] [phone] Rose Dick, DO [address] [place] [address] [facility] SWS FM 230Start: 09-05-2024 End: 09-05-2025 reactive protein [Mass/volume] in Serum or PlasmaC-reactive protein Lab Routine Status post total shoulder replacement, left Expected: 09/05/2024 (Approximate), Expires: 09/05/2025NOMS HealthcareComment on above: Expected: 09/05/2024 (Approximate), Expires: 09/05/2025Start: 09-05-2024 End: 09-77-7140NVC W Auto Differential panel - BloodCBC auto differential Lab Routine Status post total shoulder replacement, left Expected: 09/05/2024 (Approximate), Expires: 09/05/2025NOPR HealthcareComment on above:Expected: 09/05/2024 (Approximate), Expires: 09/05/2025Start: 09-05-2024 End: 09-94-9838Mhwmcfpltzn sedimentation rateSedimentation rate, automated Lab Routine Status post total shoulder replacement, left Expected: 09/05/2024 (Approximate), Expires: 09/05/2025NOPR HealthcareComment on above:Expected: 09/05/2024 (Approximate), Expires: 09/05/2025Start: 09-05-2024 End: 67-86-8470Udzmgegtgzf-6Interleukin-6 Lab Routine Status post total shoulder replacement, left Expected: 09/05/2024 (Approximate), Expires: 09/05/2025[facility] Work Phone: Comment on above:Expected: 09/05/2024 (Approximate), Expires: 09/05/2025Start: 09-05-2024 End: 60-30-3324Velmmju encounter sbtqlvbun83/12/2025 9:30 AM EDT Office Visit [facility] [address] [place] [place] [phone] Zen Rdz, [address] [facility] [place] [address] [facility] ORTHOComment on above:ArrivedStart: 08-15-2024 End: 78-73-9485Mzhypmx encounter uktsghoda44/22/2025 10:00 AM EDT Office Visit [facility] [address] [facility] [place] [address] Zen Rdz DO [address] [place] [address] NOMS NB ORTHOStart: 07-04-2024 End: 36-47-8108Mogsnie encounter yaudzswkb48/10/2025 10:15 AM EDT Office Visit [facility] [address] [place] [address] Zen Rdz, DO [address] [place] [address] NOMS NB ORTHOStart: 06-14-2024 End: 18-41-5860Mkdzzce encounter zylsrmten38/21/2025 9:45 AM EDT Office Visit [facility] FM [address] [place] [phone] Rose Dick, DO [address] [place] [address] NOM[facility] SWS FM 230Start: 06-04-2024 End: 36-81-7588Hunbfkx encounter lbqtoekkv09/11/2025 11:15 AM EDT Office Visit [facility] [address] [place] [address] Zen Rdz, DO [address] [place] [address] NOMS NB ORTHOStart: 05-16-2024 End: 10-75-9982Rwagtpu encounter procedureNOMS NB ORTHOComment on above:Arrived Start: 03-18-2024 End: 08-75-6382Gwdqoyd encounter tgjunrhxo26/23/2024 10:30 AM EST Office Visit [facility] [address] [place] [address] Rose Dick, DO [address] [place] [address] [facility] SWS FM 230Start: 60-42-5686Bcduyvauh for malignant neoplasm of colonNOMS HealthcareStart: 12-19-2023 End: 56-97-7419Hdtrrsl encounter zorimuitm21/24/2024 8:00 AM EDT Office Visit [facility] [address] [place] [address] Zen Rdz DO [address] [place] [address] NOMS NB ORTHOStart: 21-69-5743Pgsglbfdq vaccinationInfluenza Vaccine (#1)NOMS HealthcareStart: 65-13-1096Zioutrdoi complement CH50 level [facility] Centertart: 50-31-8432UviobgypqDayton VA Medical Centertart: 81-97-5549Ocssgrf referralMercy Health Fairfield Hospital Work Phone: Start: 60-94-4907Jcdlvtqfrzna Vaccine: 50+ (1 of 1 - PCV)Pneumococcal Vaccine: 50+ (1 of 1 - PCV)[facility]2019 Shingrix Vaccine (1 of 2)Shingrix Vaccine (1 of 2)[facility]: 90-77-2727Rdmwbwkg ScreeningDiabetes ScreeningClermont County Hospitaltart: 2014 Prostate specific antigen measurementProstate Cancer Screening Discussion [facility]: 01-06-4662Tkitilryf for malignant neoplasm of colon [facility]: 64-00-7722Zmfdi panelLipid ScreeningUniversity Hospitals Elyria Medical Center Start: 49-02-3014Qhizjxmbl B Vaccine (1 of 3 - 19+ 3-dose series)Hepatitis B Vaccine (1 of 3 - 19+ 3-dose series)[facility]: 35-22-1837Pzlqk microalbumin profileDTaP,Tdap,Td Vaccine (1 - Tdap)[facility]: 26-72-8402Rqzoxmm ScreeningAnxiety ScreeningClermont County Hospitaltart: 05-26-1987 Depression ScreeningDepression ScreeningClermont County Hospitaltart: 05-26-1987 Hepatitis C screeningHepatitis C ScreeningClermont County Hospitaltart: 93-25-4146SZH screeningHIV ScreeningCleCleveland Clinic Mentor Hospitaltart: 45-13-6541Ipajtywzf for malignant neoplasm of colonNOMS HealthcareBacteria identified in Body fluid by Culture BACTERIAL CULTURE AND GRAM STAIN, STERILE BODY FLUID Microbiology Routine Left shoulder pain, unspecified chronicity S/P shoulder replacement, left Loose orthopedic implant, initial encounter Instability of left shoulder joint 10/28/2024 11:06 AM EDTCleveland ClinicMicroalbumin [Mass/volume] in Urine [facility]healthPatient referralMercy Health Fairfield Hospital Work Phone: SYNOVIAL FLUID MANUAL DIFFSYNOVIAL FLUID [...] of left shoulder joint 10/28/2024 11:06 AM [facility]TC[facility] End: 04-61-0890FJ Shoulder - left 3 ViewsXR SHOULDER GENERAL 3V OR MORE AP/TRUE AP/OTHER LEFT Radiology Routine Left shoulder pain, unspecified chronicity 1 Occurrences starting 10/21/2024 until 11/21/2025[facility] Work Phone: Comment on above:1 Occurrences starting 10/21/2024 until 11/21/2025[facility] Immun[facility] Immunization DateImmunizationNotesCare ZzctvffoQvbpvunh03-10-8619YGNEZ-87 Vaccine Pfizer - Documentation Purposes OnlyBechristi Tucker Other [facility]10-21-2021COVID-19 Vaccine Pfizer - Documentation Purposes OnlyMax Tucker Other [facility]healthNEGATED: Highlighted row has not occurred!61-15-2862CPWZ-CoV-2 (COVID-19) [id number] Giorgio Rdz General Surgery [employer] Payers DatePayer CategoryPayerPolicy [id number]-[id number] Health [id number] Care HMO (unspecified)[id number] 2.16.840.1.733900.3.57[id number] 2.16.840.1.369941.3.57[id number] 2.16.840.1.749774.3.579.2.66666-42-5594Znyitge43413974 2.16.840.1.302546.3.579.[id number] 2.16.840.1.581864.3.579.2.06157-40-6234Gznhqjv40351710 2.0.1.327028.3.579.[id number] 2.16.840.1.966969.3.579.2.[id number] 2.16.840.1.042652.3.579.[id number] 2.16.840.1.570373.3.579.2.16530-10-3880Jqiyfnr69179869 2.16.840.1.787742.3.579.2.09062-35-9544Pfvuqvt10334544 2.16840.1.447349.3.579.2.43921-51-3158Nucfojt71018357 2.16.840.1.960078.3.579.2.504368-71-3840Wvgivst97884210 2.16840.1.520183.3.579.[id number] 2.0.1.889837.3.57[id number] 2.0.1.439973.3.579.2.[id number] 2.0.1.746143.3.579.2.450793-75-6554Ibkatoq65611953 2..1.526958.3.579.2.[id number] 2..1.125511.3.579.2.021948-44-6815Cmbdoyb40921275 2..1.282625.3.579.2.300093-76-2088Gsczrni6893753 2..1.537323.3.579.2.627936-01-7215Wzuvjdj1965068 2..1.565254.3.579.2.775736-13-6566Zerqgpv1277425 2..1.117414.3.579.2.982811-57-4245Mvtujsv9203089 2..1.294517.3.579.2.887362-91-8181Oshfhlr4523584 2..1.415916.3.579.2.796621-34-3576Mqefnxe8477595 2..1.321267.3.579.2.187639-60-0839Mctzait5144392 2..1.608708.3.579.2.061064-00-8531Ufnwsqr Health [id number] Private Health [id number] 2.0.1.107389.48Mfxvivv84377772 2.0.1.563074.3.579.2.531 Social History DateTypeDetailFacilityUnknown if ever smokedNort [employer] Other Start: 12-18-2023 End: 33-24-0044Ouy Assigned At [facility]tart: 11-70-4529Rmzoxuf smoking statusEx-smoker (finding)[facility] Start: 02-26-2012 End: 20-00-4776Hibxkqw smoking statusFormer smokeless tobacco user, quit more than 30 days agoOhioHealth Dublin Methodist Hospitaltart: 90-69-0139Hxk Assigned At [facility] Centertart: 08-03-2020 End: 62-41-9354Lsjpqmt smoking status NHISNever smoked tobaccoNOMS Healthcare Start: 49-50-3048Xnkpula use and exposureSmokeless tobacco non-userNOMS HealthcareStart: 12-19-2023 End: 48-61-1420Iqgdjelrk beverage intakeCurrent drinker of alcohol (finding)[facility] HealthcareStart: 12-18-2023 End: 43-48-9866Dnabzco of Social functionNOMS HealthcareHow often to you have a drink containing alcohol?Monthly or lessNOMS HealthcareHow many standard drinks containing alcohol do you have on a typical day?1 or 2NOMS HealthcareHow often do you have 6 or more drinks on 1 occasion?NeverNOMS HealthcareStart: 11-10-2022 Alcohol Commentcaffiene dailyNOMS HealthcareStart: 04-14-4481Knbinu identity Identifies as male gender (finding)NOMS HealthcareTobacco smoking status NHIS Unknown if ever smokedGood Samaritan Hospital Work Phone: Start: 04-09-2010 End: 45-28-6519CvpHnla (finding)[facility] Centerexual OrientationC[facility] Clinic Fair[facility] Hospital Start: 51-07-8822Jcmtrkn use and exposureFormer smokeless tobacco userClermont County Hospitaltart: 14-31-5151Amexbr orientation Heterosexual (finding)[facility] Medical Equipment Procedure CodeEquipment CodeEquipment Original TextEquipment IdentifierDates SHOULDER ARTHROSCOPY W/ POSSIBLE REPAIR Zen Rdz DO 04/07/23 Unknown Shoulder LFDAStart: 34-15-7902Jqmsr Sugar Diagnostic (Onetouch Ultra Test) strip Start: 10-11-1090Ldxchlv (Onetouch Ultrasoft 2 Lancet) 30 gauge miscStart: 87-99-8858Chrer Sugar Diagnostic (Onetouch Ultra Test) stripStart: 07-20-2023 Lancets (Onetouch Ultrasoft 2 Lancet) 30 gauge miscStart: 82-52-7355WYUWPFXL ARTHROSCOPY W/ POSSIBLE REPAIR Zen Rdz DO 04/07/23 Unknown Shoulder LFDA Start: 69-95-9122QZOANGJY ARTHROSCOPY W/ POSSIBLE REPAIR Zen Rdz DO 04/07/23 Unknown Shoulder LFDAStart: 85-09-1344YYHZQIXI TOTAL ARTHROPLASTY Zen Rdz DO 05/22/24 Non Biological Shoulder L{01}[id number] FDAStart: 53-84-7910Vvtun Sugar Diagnostic (Freestyle Lite Strips) stripStart: 07-18-2024 Blood Sugar Diagnostic (Onetouch Ultra Test) stripStart: 08-81-7850Fbqndgy (Onetouch Ultrasoft 2 Lancet) 30 gauge miscStart: 84-79-9902Bbbua: 05-28-2019 SHOULDER ARTHROSCOPY W/ POSSIBLE REPAIR Zen Rdz DO 04/07/23 Unknown Shoulder LFDAStart: 17-63-1523Lphcc Sugar Diagnostic (Freestyle Lite Strips) stripStart: 58-32-2077Tkcci Sugar Diagnostic (Onetouch Ultra Test) stripStart: 11-56-9050Yaqerbd (Onetouch Ultrasoft 2 Lancet) 30 gauge miscStart: 07-20-2023 Blood Sugar Diagnostic (Freestyle Lite Strips) stripStart: 88-16-6229Glkvk Sugar Diagnostic (Onetouch Ultra Test) stripStart: 22-29-9868Yqxmbgg (Onetouch Ultrasoft 2 Lancet) 30 gauge miscStart: 07-20-2023 Functional Status FoziFuhnbpcionJkpfeoMrlwdsws07-68-2085Pexagwusug [facility]12-28-2023Functional [facility] Clinical Notes 06-21-2022 to 01-13-2025 Note Date & KgvsKazjTuitimmh75-51-0895 History of Present illness Narrative* Zen Rdz, [...] erythema. Full flexion, extension, pronation, supination. Good terra cotta setter strength. Tender over the first dorsal compartment [...] note was created using voice recognition through [employer] artificial intelligence. [1] No Known Allergies [2] [...] daily Drug use: Never documented in this encounterChildren's Mercy [id number] NoteHNO ID: [id number] Author: BRIELLE KRAUS MD Service: ? Author Type: Physician Type: Progress Notes Filed: 11/18/2024 12:19 Note Text: [facility] NOTE Department of Orthopaedics Brielle Kraus MD [facility] NAME: Chava Vasquez JR CLINIC NO.: [id number] DATE: 11/18/2024 Interval Hx:Chava Vasquez JR is [...] 1. 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 S/P shoulder replacement, left [...] Shoulder and Elbow Surgeon Orthopaedic Surgery Department [place], [place] [address] Tell: [phone] Appt:[phone] History of Present illness Narrative* Brielle Kraus MD - 11/18/2024 10:39 AM EDT [facility] NOTE Department of Orthopaedics Brielle Kraus MD [facility] NAME: Chava Vasquez JR CLINIC NO.: [id number] DATE: 11/18/2024 Interval Hx:Chava Vasquez JR is [...] 1. 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 S/P shoulder replacement, left [...] Shoulder and Elbow Surgeon Orthopaedic Surgery Department [place], [place] [address] Tell: [phone] Appt:[phone] documented in this encounterUniversity [facility]als [facility]08-11-[facility] History of Present illness Narrative* Zen Rdz, [...] a [facility] with Dr. Kraus [facility], and this was reviewed in [facility]. The shoulder was aspirated and sent for [...] severely compromised. Due to upcoming travel to [place] this weekend, Journavx has been prescribed again [...] note was created using voice recognition through [employer]. documented in this encounterChildren's Mercy NorthlandBqqxdpvxye21-29-0550 NoteHNO ID: [id number] Author: BRIELLE KRAUS MD Service: ? Author Type: Physician Type: Progress Notes Filed: 10/28/2024 13:20 Note Text: Brielle Kraus M.D. M.M.Sc. [employer] Planning of Orthopaedic Surgery at [place] [address] Office: [phone] Consult requested for an opinion regarding the evaluation and treatment of the above patient. My final impression and recommendations will be communicated back to the requesting physician by way of the shared medical record or letter via US mail. Patient info: Chava Vasquez JR ([id number]) Service date: 10/28/2024 Referred by: Zen Rdz DO [address] [facility] [address] PCP: DO Garrett Chief Complaint: Left shoulder [...] by myself and discussed (more content not included)...[facility]08-04-2025 History of Present illness Narrative* Brielle Kraus MD - 10/28/2024 9:36 AM EDTAssociated Order(s): Large Joint Arthro/Inj: L shoulder joint Post-Procedure Diagnose(s): Left shoulder pain, unspecified chronicity; S/P shoulder replacement, left; Loose orthopedic implant, initial encounter; Instability of left shoulder joint Images from the original note were not included. Brielle Kraus M.D. M.M.Sc. [employer] of Orthopaedic Surgery at [place] [address] Office: [phone] Consult requested for an opinion regarding the evaluation and treatment of the above patient. My final impression and recommendations will be communicated back to the requesting physician by way of the shared medical record or letter via US mail. Patient info: Chava Vasquez JR ([id number]) Service date: 10/28/2024 Referred by: Zen Rdz DO [address] [facility] [address] PCP: DO Garrett Chief Complaint: Left shoulder [...] no height and/or weight reading in the lfbx363 days, so the below BMI readings may [...] these instructions. Informed Consent Consent Obtained: Verbal [place] Protocol A moment to CARE was completed. [...] Shoulder and Elbow Surgeon Orthopaedic Surgery Department [place], [place] [address] Tell: [phone] Appt:[phone] 10/28/2024 9:42 AM CC:Zen Rdz documented in this encounterUniversity Hospitals Ely[facility]07-09-2025 Evaluation note* Diagnosis Onset Date Resolution Status [...] 2 diabetes mellitus with hyperglycemiaacuteOctober 2024 9:47am [facility] Work Phone: 1(201) 633-244707-03-2025 History of Present illness Narrative* Zen Rdz, [...] be sent to the pharmacy. A shoulder [place] brace will be provided for temporary use [...] note was created using voice recognition through [employer]. documented in this encounterChildren's Mercy NorthlandVhlrfdhtqf55-25-2376 History of Present illness Narrative* SHAJI Polanco [...] by Dr. Zen Rdz. documented in this encounterChildren's Mercy NorthlandWvzfarusqs62-46-6886 Instructions* Patient Instructions* SHAJI Poalnco - 09/13/2024 11:30 AM EDT Cold pack [...] by Dr. Zen Rdz. documented in this encounterChildren's Mercy NorthlandDxlkwvygiy25-80-9193 History of Present illness Narrative* Zen Rdz, [...] note was created using voice recognition through [employer] artificial intelligence. documented in this encounterChildren's Mercy NorthlandUlqoivwwxl71-65-1031 Evaluation note* Diagnosis Onset Date Resolution Status [...] 2024 9:47amWeight loss, intentional acuteJuly 2024 9:47am [facility] Work Phone: [phone] 131-902404-10-2025 History of Present illness Narrative* Zen Sanchez Kajal, DO - 07/04/2024 10:15 AM EDT Images from the original note were not included. @ENCDATE@ Chava Vasquez is a 54 y.o. male who presents for Post-op of the Left Shoulder (L TSA 05/22/24 [facility]) HPI: History of Present Illness The patient [...] a pulling sensation. He experienced pain at [facility] on Monday, which led him to rest [...] note was created using voice recognition through [employer]. documented in this encounterChildren's Mercy NorthlandNmbwivkapv03-15-6462 History of Present illness Narrative* Zen Rdz DO - 06/06/2024 10:00 AM EDT Images from the original note were not included. @AILEENDATE@ Chava Vasquez is a 54 y.o. male who presents for Post-op of the Left Shoulder (L TSA 05/22/24 [facility]) HPI: History of Present Illness The patient [...] expresses a desire to commence rehabilitation at [place] and requests [facility] as his therapist. He [...] 1 tablet, 2 times daily with meals jgixxeag-oaajkousqa-ggadhudkv-hydrocortisone (Cortisporin) 1 % ophthalmic ointment Apply to [...] A prescription for Percocet was sent to [facility] in [place]. Physical therapy will be initiated next week, [...] note was created using voice recognition through [employer]. documented in this encounterChildren's Mercy NorthlandGljyhczira21-64-9127 NoteInterdisciplinary Note - PT PT Evaluation completed with an [facility] score of 24/24. Pt was able to perform functional tasks at Mod I level due to left shoulder surgery and in sling. Pt instructed in elbow and wrist ROM only with no motion at shoulder. Pt performed functional tasks well. No further PT services needed during acute care stay [facility]02-27-2025 Evaluation + Plan noteExtracted from: Title:Discharge [...] Zen Rdz 06/04/2024 11:15 AM EDT [address] [place] [address]- [employer] (1) Additional Instructions: Appointment has already been [...] Ordered: Initial Hospital Care/Day Moderate 55 Minutes [id number] 2. History of left shoulder replacement (Z96.612: [...] Pre-operative NoteAuthor:Art PHAM, Son Mes[place].Date: 05/22/24 Plan [place] [employer] (ASA) physical status classification: Class II. Anesthetic Preoperative Plan: Anesthesia General. Regional Supraclavicular block.[facility] [id number] NoteInterdisciplinary Note - OT Pt is seen [...] OP services as instructed by ortho at follow-up.[facility]02-27-2025 NotePatient Education - Text [place], [place] [facility] DISCHARGE INSTRUCTIONS: SHOULDER REPLACEMENT [...] persistent vomiting. Zen Rdz DO [facility] [address] [place] [address] Reviewed: [facility]02-27-2025 NoteDischarge Summary Admission and Discharge Information [...] tab(s), Oral (more content not included)... [facility] HospitalComment on above:Result Comment: Electronically Signed By: Joe Denton DO.manuel\Date and Time Signed: 05/23/24 10:36 EST 05-23-2024 NoteKathy Understands Education Yes VCE Education Video Avoiding Infections in the Hospital VCE Learning Participants PatientFisher [facility]02-26-2025 NoteHistory and Physical History of Present Illness [...] mg/dL High (05/22/24 17:49:00) POC Device SN: [id number] (05/22/24 17:49:00) POC User ID: [id number] (05/22/24 17:49:00) POC Username: POC Username (05/22/24 [...] Ordered: Initial Hospital Care/Day Moderate 55 Minutes [address] 2. History of left shoulder replacement (Z96.612: [...] 85.4 kg, 2.05, m2 (more content not included)...[facility] HospitalComment on above:Result Comment: Electronically Signed By: Joe Denton DO.br\Date and Time Signed: 05/22/24 19:03 [id number] NotePatient Education - Text [place], [place] [facility] DISCHARGE INSTRUCTIONS: SHOULDER REPLACEMENT [...] operative site, or the developmentof persistent vomiting. Zne Rdz DO [facility] [address] [place] [address] Reviewed: [facility]02-26-2025 Hospital Discharge instructions Patient Education 05/22/2024 13:03:53 Post Op Patient Instructions - FT (Custom) (CUSTOM) 05/22/2024 13:03:51 Shoulder Cryocuff Patient Instructions - FT (CUSTOM) 05/22/2024 10:15:00 Soumya Rdz - Shoulder Replacement (Custom) [place], [place] [facility] DISCHARGE INSTRUCTIONS: SHOULDER REPLACEMENT [...] vomiting. Zen Rdz, DO [facility] [address] [place], [place] [address] Reviewed: Follow Up Care 04/22/2024 13:57:10 With:MAX TUCKER Address: [address] [place] [address]- Business (1) When:7 to 10 days only if needed Comments:Call for followup appointment With:Zen Rdz Address: [address] [place] [address]- Business (1) When:06/04/2024 11:15:00 Comments:Appointment has already been scheduled. Call for any problems. [facility] 02-26-2025 NotePatient Education - Text [place], [place] [facility] DISCHARGE INSTRUCTIONS: SHOULDER REPLACEMENT [...] persistent vomiting. Zen Rdz, DO [facility] [address] [place] [address] Reviewed: [facility]02-26-2025 NoteProgress Note-Physician Patient: CHAVA VASQUEZ JR [...] constipation, # 20 cap(s), Refills(s) 0, Pharmacy: [facility]/pharmacy #[id number], 176.7, cm, 03/23/23 9:11:00 EST, Height/Length Dosing, 83.7, kg, 03/23/23 9:11:00 EST, Weight Dosing ibuprofen 600 mg Tab: 600 mg = 1 tab(s), Oral, q6hr, PRN as needed for pain, with food or milk, # 50 tab(s), Refills(s) 0, Pharmacy: [facility]/pharmacy #[id number], 176.7, cm, 03/23/23 9:11:00 EST, Height/LengthDosing, [...] Problems Abdominal pain, acute / SNOMED CT 930387050 / Confirmed Abdominal pain, LLQ / SNOMED CT 308770416 / Confirmed Abdominal pain, periumbilical / SNOMED CT 9886396709 / Confirmed BMI 27.0-27.9,adult / SNOMED CT 7064516848 / Confirmed Controlled diabetes mellitus with diabetic polyneuropathy / SNOMED CT 544444013 / Confirmed Controlled type 2 diabetes mellitus with hyperglycemia, without long-term current use of insulin / SNOMED CT 3122347013 / Confirmed Erectile dysfunction due to arterial insufficiency / SNOMED CT 9888132963 / Confirmed SARINA (generalized anxiety disorder) / SNOMED CT 10312262 / Confirmed GERD with esophagitis / SNOMED (more content not included)...[facility] HospitalComment on above:Result Comment: Electronically Signed By: Art PHAM, Son Garcia\.br\Date and Time Signed: 05/22/2508:02 [id number] History of Present illness Narrative* Zen Rdz, DO - 05/16/2024 9:45 AM EST Images from the original note were not included. @ENCDATE@ Chava Vasquez is a 53 y.o. male who presents for Follow-up of the Left Shoulder (H&P LTSA poss Rev 05/22/24 [facility]) HPI: History of Present Illness The patient is a 53-year-old ykeaq-uqeq-wpllyval male here to discuss moving forward with [...] STOM[facility] triamcinolone (Kenalog) 0.1 % ointment APPLY TO [...] about this procedure. We will utilize the [employer] shoulder arthroplasty platform and obtain a [...] note was created using voice recognition through [employer] artificial intelligence. documented in this encounterChildren's Mercy NorthlandGmjnmnttyb67-24-4098 History of Present illness Narrative* Rose Dick DO - 03/18/2024 12:42 PM ESTAssociated Problem(s): Type 2 diabetes mellitus without complication, without long-term current useof insulin ([facility]) During the appointment today all pertinent [...] complication, without long-term current use of insulin (CMS/[facility]) Tubular adenoma of colon Peyronie's disease Hyperlipidemia type II (CMS/HCC) GERD with esophagitis SARINA (generalized anxiety disorder) (CMS/[facility]) ED (erectile dysfunction) of organic origin [...] complication, without long-term current use of insulin ([facility]) During the appointment today all pertinent [...] with the patient today. documented in this encounterChildren's Mercy NorthlandHtsuowmges94-06-4771 History of Present illness Narrative* Zen Rdz [...] moderation. He will follow up with his sports book writer on March 18 for further evaluation. The [...] note was created using voice recognition through [employer] artificial intelligence. documented in this encounterChildren's Mercy NorthlandCfyamprzsu65-72-5586 History of Present illness Narrative* Rose Dick DO - 12/18/2023 12:22 PM EDTAssociated Problem(s): Type 2 diabetes mellitus without complication, without long-term current useof insulin ([facility]) During the appointment today all pertinent [...] complication, without long-term current use of insulin ([facility]) Tubular adenoma of colon Peyronie's disease Hyperlipidemia type II ([facility]) GERD with esophagitis SARINA (generalized anxiety disorder) ([facility]) ED (erectile dysfunction) of organic origin [...] complication, without long-term current use of insulin ([facility]) -Primary During the appointment today all [...] with the patient today. documented in this encounterChildren's Mercy NorthlandKstzywooqm83-10-4656 Hospital Discharge instructions Patient Education 04/07/2023 11:34:21 Shoulder Cryocuff Patient Instructions - FT (CUSTOM) 04/07/2023 11:34:12 Post Op Patient Instructions - FT (Custom) (CUSTOM) 04/07/2023 09:07:26 Soumya Rdz - After Your Shoulder Arthroscopy (Custom) [place], [place] [facility] AFTER YOUR SHOULDER ARTHROSCOPY [...] appointment. Zen Rdz, DO [facility] [address] [place], [place] [address] Reviewed: Follow Up Care 02/14/2023 08:34:24 With:Zen Rdz Address: [address] [place] [address]- Business (1) When:04/18/2022 13:45:00 Comments:Appointment has already been scheduled. Call for any problems. [facility]12-08-2023 Evaluation note* Encounter Date Diagnosis Assessment Notes [...] antigen) (ICD-10 - Z12.5)Yearly ARLEEN and PSA [employer] Other 11-27-2023 Evaluation note* Encounter Date Diagnosis Assessment Notes Treatment Notes Treatment Clinical Notes Jan, Controlled type 2 di abetes mellitus with hyperglycemia, without long-term current use of insulin (ICD-10 - E11.65) [employer] Other 09-01-2023 Evaluation note* Encounter Date Diagnosis Assessment Notes Treatment Notes Treatment Clinical Notes Nov, Acute seasonal aller gic rhinitis, unspecified trigger (ICD-10 - J30.2) [employer] Other 08-04-2023 Evaluation note* Encounter Date Diagnosis [...] but maintain ROM Exercises given to patient [employer] Other 04-26-2023 Evaluation note* Encounter Date Diagnosis [...] bedtime. Weight loss. Had to restart PPI [employer] Other 04-17-2023 Evaluation note* Encounter Date Diagnosis Assessment Notes Treatment Notes Treatment Clinical Notes Jun, Superficial thrombop hlebitis of right upper extremity (ICD-10 - I80.8) [employer] Other 04-12-2023 Evaluation note* Encounter Date Diagnosis Assessment Notes Treatment Notes Treatment Clinical Notes Jun, Superficial thrombop hlebitis of right upper extremity (ICD-10 - I80.8) [employer] Other 04-04-2023 Evaluation note* Encounter Date Diagnosis Assessment Notes Treatment Notes Treatment Clinical Notes Jun, Superficial thrombop hlebitis of right upper extremity (ICD-10 - I80.8) Warm compresses, elevate and begin antibiotics Jun,AD (generalized anxiety disorder) (ICD-10 - F41.1)Healthy diet and keep active. Reassured [employer] Other 03-28-2023 Evaluation note* Encounter Date Diagnosis [...] can stop antibiotic. Repeat Sinus CT at [facility] Team [employer] Other Evaluation + Plan note Future Appointments Appointment Date:04/07/2023 11:30:00 AM Scheduled Provider: Location:[facility] Future Appointments Appointment Date:05/22/2024 11:00:00 AM Scheduled Provider: Location:[facility] Appointment Type:Surgery FT [facility] Evaluation noteNo InformationNortACMH Hospital Team [employer] Other Evaluation noteNo assessment information available [facility] Work Phone: Evaluation note* Diagnosis Onset Date Resolution Status TONJA positive acuteGAD (generalized anxiety disorder)acuteType 2 diabetes mellitus with hyperglycemiaacuteWeakness of left shoulderacute [facility] Work Phone: Evaluation note* Diagnosis Arthritis of left shoulder region- Primary documented in this encounter [facility]* Diagnosis Type 2 diabetes mellitus without complication, without long-term current use of insulin (CMS/HCC)- Primary Type 2 diabetes mellitus with hyperglycemia, without long-term current use of insulin (CMS/HCC) documented in this encounter [facility] HealthcareEvaluation note* Diagnosis Type 2 diabetes mellitus with hyperglycemia, unspecified whether nursing home insulin use (CMS/HCC) Type 2 diabetes mellitus without complication, without long-term current use of insulin (CMS/HCC)- Primary Type 2 diabetes mellitus with hyperglycemia, without long-term current use of insulin (CMS/HCC) Type 2 diabetes mellitus without complication, without long-term current use of insulin (CMS/HCC) documented in this encounter [facility] HealthcareEvaluation note* Diagnosis Type 2 diabetes [...] shoulder region- Primary documented in this encounter [facility] HealthcareEvaluation note* Diagnosis Type 2 diabetes mellitus with hyperglycemia, unspecified whether tank terminal gauger insulin use (CMS/[facility]) Type 2 diabetes mellitus without complication, without long-term current use of insulin (CMS/HCC)- Primary Type 2 diabetes mellitus with hyperglycemia, without long-term current use of insulin (CMS/HCC) Type 2 diabetes mellitus without complication, without long-term current use of insulin (CMS/HCC) Status post total shoulder replacement, left- Primary documented in this encounter [facility] HealthcareEvaluation note* Diagnosis Type 2 diabetes mellitus with hyperglycemia, unspecified whether tank terminal gauger insulin use (CMS/[facility]) Type 2 diabetes mellitus without complication, without long-term current use of insulin- Primary Type 2 diabetes mellitus with hyperglycemia, without long-term current use of insulin (CMS/HCC) Type 2 diabetes mellitus without complication, without long-term current use of insulin Type 2 diabetes mellitus without complication, without long-term current use of insulin- Primary Status post total shoulder replacement, left- Primary documented in this encounter [facility] HealthcareEvaluation note* Diagnosis Onset Date Resolution Status Admit Date SARINA (generalized anxiety disorder) acuteApril 2024 10:09amGERD (gastroesophageal reflux disease)acuteApril 2024 10:09amPrimary osteoarthritis, left shoulderacuteApril 2024 10:09amStatus post reverse total arthroplasty of left shoulderacuteApril 2024 10:09amType 2 diabetes mellitus with diabetic polyneuropathyacuteApril 2024 10:09amType 2 diabetes mellitus with hyperglycemiaacuteApril 2024 10:09am [facility] Work Phone: Evaluation note* Diagnosis Type 2 diabetes mellitus with hyperglycemia, unspecified whether tank terminal gauger insulin use (HCC) Type 2 diabetes mellitus [...] replacement, left- Primary documented in this encounter [facility] HealthcareEvaluation note* Diagnosis Type 2 diabetes [...] of left shoulder documented in this encounter [facility] HealthcareEvaluation note* Diagnosis Type 2 diabetes mellitus with hyperglycemia, unspecified whether tank terminal gauger insulin use (HCC) Type 2 diabetes mellitus [...] replacement, left- Primary documented in this encounter [facility] HealthcareEvaluation note* Diagnosis Left shoulder pain, unspecified chronicity- Primary S/P shoulder replacement, left Loose orthopedic implant, initial encounter Instability of left shoulder joint Other joint derangement, not elsewhere classified, shoulder region documented in this encounter [facility] CenterEvalubeebe medical center note* Diagnosis Type 2 diabetes mellitus [...] replacement, left- Primary documented in this encounter [facility] HealthcareEvaluation note* Diagnosis 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 Aseptic necrosis of other bone site S/P shoulder replacement, left documented in this encounter [facility] CenterEvcol[facility]* Diagnosis Type 2 diabetes mellitus with hyperglycemia, unspecified whether tank terminal gauger insulin use (HCC) Type 2 diabetes mellitus [...] in joint, forearm documented in this encounter [facility] HealthcareHistory general Narrative - Reported* Type [...] Historyknee surgery X3 Surgical HistoryUPPR GI ENDOSCOPY, [id number] Hospitalization HistorySee Above [employer] Other History general Narrative - Reported* Type [...] Historyknee surgery X3 Surgical HistoryUPPR GI ENDOSCOPY, [id number] Surgical HistoryLeft shoulder arthroscopy/2023Hospitalization HistorySee Above [employer] Other Hospital course Narrative No data available for this section [facility] Hospital[facility] Discharge instructions No data available for this section [facility] HospitalProgress note No data available for this section [facility] HospitalReason for referral (narrative)No reason for referral information availableGood Samaritan Hospital Work Phone: Summary Purpose Family History Relationship [...] 2024 9:47am GERD [facility]47[facility] Left [facility] pain October [...] 2024 9:47am GERD ([facility]astroes[facility] reflux disease) [facility] 20[facility] 9:47am Left wrist pain October [...] content) ReasonCommentsPainHx TSA 05/22/24 JABReasonCommentsPost-opL TSA 05/22/24 [facility] ReasonCommentsFollow-upH&P LTSA poss Rev 05/22/24 FTMCReasonCommentsDiabetes ReasonCommentsFollow-upLab [...] and content) DATE CREATED AUTHOR 06/26/[address] [facility] DATE CREATED AUTHOR AUTHOR'S ORGANIZ ATION 07/13/2022 [facility] DATE CREATED AUTHOR AUTHOR'S ORGANIZ ATION 08/30/2023 [facility] DATE CREATED AUTHOR AUTHOR'S ORGANIZ ATION 05/02/2024 [facility] DATE CREATED AUTHOR AUTHOR'S ORGANIZ ATION 05/03/2024 [facility] DATE CREATED AUTHOR AUTHOR'S ORGANIZ ATION 05/24/2024 [facility] DATE CREATED AUTHOR AUTHOR'S ORGANIZ ATION 2024 [facility] DATE CREATED AUTHOR AUTHOR'S ORGANIZ ATION 05/28/2024 [facility] DATE CREATED AUTHOR AUTHOR'S ORGANIZ ATION 09/26/2024 [facility] DATE CREATED AUTHOR AUTHOR'S ORGANIZ ATION 11/19/2024 [facility] DATE CREATED AUTHOR AUTHOR'S ORGANIZ ATION 12/10/2024 [facility] DATE CREATED AUTHOR AUTHOR'S ORGANIZ ATION 01/13/2025 [facility] EPIC Patient Care team informatio [...] September 13, 2023Team MemberRelationshipSpecialtyStart DateEnd Date Max Tucker MD [address] [place] [address] PCP - GeneralInternal Medicine11/10/22Team MemberRelationshipSpecialtyStart Date End Date Max Tucker MD [address] [place] [id number] PCP - GeneralInternal Medicine11/10/22Team MemberRelationshipSpecialtyStart Date End Date Max Tucker MD [address] [place] [address] PCP - GeneralInternal Medicine11/10/22Team MemberRelationshipSpecialtyStart Date End Date Max Tucker MD [address] [place] [address] PCP - GeneralInternal Medicine11/10/22Team MemberRelationshipSpecialtyStart Date End Date Max Tucker MD [address] [place] [address] PCP - GeneralInternal Medicine11/10/22Team MemberRelationshipSpecialtyStart Date End Date Max Tucker MD [address] [place] [address] PCP - GeneralInternal Medicine11/10/22Team MemberRelationshipSpecialtyStart Date End Date Max Tucker MD [address] [place] [address] PCP - GeneralInternal Medicine11/10/22Team MemberRelationshipSpecialtyStart Date End Date Max Tucker MD [address] [place] [address] PCP - GeneralInternal Medicine11/10/22 Team Status: Active Member Role Status Dates Max Tucker DO Primary Care Provide r, Attending Provider Active Start: July 05, 2024 Team Status: Inactive Member Role Status Dates Max Tucker DO Primary Care Provide r, Attending Provider Active Start: July 18, 2024 End: July 18, 2024Team MemberRelationshipSpecialtyStart DateEnd Date Max Tucker DO [address] [place] [address] PCP - GeneralInternal Medicine08/20/24Team MemberRelationshipSpecialtyStart Date End Date Max Tucker DO [address] [place] [address] PCP - GeneralInternal Medicine08/20/24Team MemberRelationshipSpecialtyStart Date End Date Max Tucker DO [address] [place] [address] PCP - GeneralInternal Medicine08/20/24Team MemberRelationshipSpecialtyStart Date End Date Max Tucker DO [address] [place] [address] PCP - GeneralInternal Medicine08/20/24Team MemberRelationshipSpecialtyStart Date End Date Max Tucker DO [address] [place] [address] PCP - GeneralInternal Medicine08/20/24 Team Status: Active [...] PCP - GeneralInternal Medicine05/25/20 [facility] [address] [place] [address] Orthopedics09/30/24Team MemberRelationshipSpecialtyStart DateEnd Date Max Tucker DO [address] [place] [address] PCP - GeneralInternal Medicine08/20/24Team MemberRelationshipSpecialtyStart Date End Date Max Tucker DO PCP - GeneralInternal Medicine05/25/20 [facility] [address] [place] [address] Orthopedics09/30/24 Goals (unrecognized section and content) Goals may be documented in a n alternate section Source Comments (unrecognize d section and content) In the event this informatio n is protected by the Federal Confidentiality of Alcohol and Drug Abuse Patient Records regulations: The Federal rules restrict any use of the information to criminally investigate or prosecute any alcohol or drug abuse patient.[facility] CenterIn the event this information is protected by the Federal Confidentiality of Alcohol and Drug Abuse Patient Records regulations: The Federal rules restrict any use of the information to criminally investigate or prosecute any alcohol or drug abuse patient.[facility] FOR RECORDS PERTAINING TO PATIENTS WHO ARE [...] BE BASED ON THE PRIMARY CLINICAL RECORDS. [facility] [employer] [facility]. provides no warranty or guarantee of the accuracy or completeness of information in this document.
--- OUTSIDE RECORDS SUMMARY | 2025-01-27 20:55 | XMS_ITS | Encounter Summary ---
Author Organization [facility] Address [address] [address] Care Team Providers Care Head Trimmer Name Role Phone Max Ojeda DO Primary Care Provider [phone] Encounter Details DateTypeDepartmentCare Team (Latest Contact Info)Djnulcihtsx35/20/2025Travel Social History Tobacco UseTypesPacks/DayYears UsedDateSmoking Tobacco: NeverSmokeless [...] on one occasion?Never03/18/2024HQ-2 AnswerDate RecordedPatient Health Questionnaire-2 Gabpm01605/19/2023Sex and Gender InformationValueDate RecordedSex Assigned at XfsdcTzdn30/17/2023 2:59 PM EDT Legal PegIxff1106/08/2022 7:48 PM EDTGender YnljqbdqZpyv30/17/2023 2:59 PM EDT Sexual OrientationNot on filedocumented as of this encounter Plan of Treatment Not on file documented as of this encounter Visit Diagnoses Not on filedocumented in this encounter Care Teams Team MemberRelationshipSpecialtyStart DateEnd Date Max Ojeda DO [address] [facility] [place] [address] PCP - GeneralInternal Medicine08/20/24documented as of this encounter
--- OUTSIDE RECORDS SUMMARY | 2025-01-27 20:55 | XMS_ITS | Clinical Summary ---
Author Organization [facility] Address [address] [place] [address] Care Team Providers Care Coconut Cooker Name Role Phone Max Ojeda DO Primary Care Provider [phone] [facility] Unavailable Allergies No known active allergies Medications MedicationSigDispense QuantityRefillsLast FilledStart DateEnd DateStatus ALPRAZolam (XANAX) 0.25 mg tablet Take 0.25 mg by mouth.04/16/2019Active atorvastatin (LIPITOR) 80 mg tablet 03/19/2019Active blood sugar diagnostic (ONETOUCH ULTRA TEST STRIP) test strip 05/28/2019Active FREESTYLE LITE METER monitoring kit USE TO TEST HOME BLOOD SUGAR ONCE EVERY DAY04/20/2020ctive FREESTYLE LITE STRIPS test strip TEST WITH 1 STRIP DAILY UFBTRD5406/22/2020ctive citalopram (CELEXA) 20 mg tablet 07/31/2019Active glimepiride (AMARYL) 2 mg tablet 04/20/2020ctive FREESTYLE LANCETS 28 gauge USE TO TEST HOME BLOOD SUGAR ONCE DAILY04/21/2020ctive metFORMIN (GLUCOPHAGE) 1,000 mg tablet 04/18/2020ctive omeprazole (PRILOSEC) 40 mg capsule TAKE 1 CAPSULE ON EMPTY STOMACH FOLLOWED IN 30 MINUTES BY QOMBNTHSJ96/08/2021 Active sildenafil (VIAGRA) 100 mg tablet Take 100 mg by mouth.07/31/2019Active SITagliptin-metFORMIN (JANUMET) 50-1,000 mg per tablet Take by mouth.07/31/2019Active Active Problems ProblemNoted DateDiagnosed DateIdiopathic aseptic necrosis of left shoulder 11/18/2024Left shoulder pain10/28/2024S/P shoulder replacement, left10/28/2024 Loose orthopedic jfxahrp8810/28/2024Instability of left shoulder joint10/28/2024ED (erectile dysfunction) of organic ufnian3108/03/2020eyronie's wgijllp2008/03/2020 Encounters DateTypeDepartmentCare TmobHorphumacsf38/03/2025 11:15 AM ESTOffice Visit Orthopaedics [address] [place] [address] Palmer Clifford MD S/P shoulder replacement, left (Primary Dx); Loose orthopedic implant, subsequent mbbcwgwas92/25/2025 9:45 AM EDTOffice Visit Orthopaedics [address] [place] [address] Palmer Clifford MD 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); S/P shoulder replacement, left10/28/2024 10:15 AM EDTOffice Visit Orthopaedics [address] [place] [address] Palmer Clifford MD Left shoulder pain, unspecified chronicity (Primary Dx); S/P shoulder replacement, left; Loose orthopedic implant, initial encounter; Instability of left shoulder joint10/28/2024Travelfrom Last 3 Months Social History Tobacco UseTypesPacks/DayYears UsedDateSmoking Tobacco: NeverSmokeless Tobacco: FormerArea Deprivation IndexAnswerDate RecordedNational Score (1-100), lower number is lower xcvp492610/28/2024State Score (1-10), lower number is lower risk4 10/28/2024Data from: https://www.neighborhoodatlas.medicine.[facility].edu/. Last address used for do[address]/28/2024Sex and Gender InformationValueDate RecordedSex Assigned at LzykxFfgr48/05/2021 8:34 PM EDT Legal DetYcej98/02/2012 8:45 AM ESTGender MfmhghchXspr40/05/2021 8:34 PM EDT Sexual ShfkngimbizMtwtzvkm58/05/2021 8:34 PM EDT Last Filed Vital Signs Vital SignReadingTime TakenCommentsBlood Jynruhoo089/9205/12/2020 9:57 AM EDT Boulo4952 9:57 AM EDTTemperature--Respiratory Rate--Oxygen Saturation-- Inhaled Oxygen Concentration--Vcgarn67.2 kg (190 lb 1.6 oz)08/03/2020 9:57 AM EDTHeight--Body Mass Index-- Plan of Treatment Health MaintenanceDue DateLast DoneCommentsAnxiety Lxjxwdiqq98/01/1988Depression Fncrsgjvo09/01/1988HIV Zypcmyhda67/01/1988Hepatitis C Ugxgvidnm36/01/1988 DTaP,Tdap,Td Vaccine (1 - Tdap)1988Hepatitis B Vaccine (1 of 3 - 19+ 3- dose series)1988Lipid Zzhpcynlw10/01/2005CT Fkgepfjshsbc55/01/2015 Cologuard (FIT-DNA)05/25/20142375Ycduhdqrynp90/01/2015Colorectal Cancer Screening 2014Diabetes Qqbavrxto59/01/2015Fecal Occult Blood2014Prostate Cancer Screening Fqguywktkc25/01/1123Jroicyicingxu86/01/2015Pneumococcal Vaccine: 50+ (1 of 1 - PCV)05/26/2019Shingrix Vaccine (1 of 2)05/26/2019Covid-19 Vaccine (3 - season)511/01/2021, 01/14/2021Influenza Vaccine (#1)2024 Procedures Procedure NamePriorityDate/TimeAssociated DiagnosisCommentsC-REACTIVE PROTEIN (CRP)Bmxltlr9010/28/2024 11:22 AM EDT Left shoulder pain, unspecified chronicity S/P shoulder replacement, left Loose orthopedic implant, initial encounter Instability of left shoulder joint SEDIMENTATION APOYApaglhj08/04/2025 11:22 AM EDT Left shoulder pain, unspecified chronicity S/P shoulder replacement, left Loose orthopedic implant, initial encounter Instability of left shoulder joint CBC + KKHGAggbinq86/04/2025 11:22 AM EDT Left shoulder pain, unspecified chronicity S/P shoulder replacement, left Loose orthopedic implant, initial encounter Instability of left shoulder joint BACTERIAL CULTURE AND GRAM STAIN, STERILE BODY QEHQWAxlxouf84/04/2025 11:06 AM EDT Left shoulder pain, unspecified chronicity S/P shoulder replacement, left Loose orthopedic implant, initial encounter Instability of left shoulder joint SYNOVIAL FL,CRYSTAL ID/STAFF MYCQqvlezu33/04/2025 11:06 AM EDT Left shoulder pain, unspecified chronicity S/P shoulder replacement, left Loose orthopedic implant, initial encounter Instability of left shoulder joint SYNOVIAL FLUID MANUAL MRCFOgqsjlr43/04/2025 11:06 AM EDT Left shoulder pain, unspecified chronicity S/P shoulder replacement, left Loose orthopedic implant, initial encounter Instability of left shoulder joint SYNOVIAL FLUID, TJVXYAOFvyqrky94/04/2025 11:06 AM EDT Left shoulder pain, unspecified chronicity S/P shoulder replacement, left Loose orthopedic implant, initial encounter Instability of left shoulder joint ARTHROCENTESIS ASPIR&/INJ MAJOR JT/BURSA W/O OPEwokxbf88/04/2025 10:54 AM EDT Left shoulder pain, unspecified chronicity S/P shoulder replacement, left Loose orthopedic implant, initial encounter Instability of left shoulder joint from Last 3 Months Results * SEDIMENTATION RATE, ADE (10/28/2024 11:22 AM EDT)ComponentValueRef RangeTest MethodAnalysis TimePerformed AtPathologist SignatureSed Rate, Upvlkeksvf50 - 15 mm/hr10/28/2024 2:15 PM [facility]TCZ[facility] Specimen (Source)Anatomical Location / LateralityCollection Method / Volume Collection TimeReceived TimeBloodBLOOD SPECIMEN / UnknownVenipuncture / Vjilpsb1610/28/2024 11:22 AM EDT10/28/2024 11:22 AM EDT Narrative Authorizing ProviderResult TypeResult StatusVahicaryn Clifford MDLABORATORYFinal ResultPerforming OrganizationAddressCity/State/ZIP CodePhone Number [facility] [address] [address], * (ABNORMAL) COMPLETE BLOOD COUNT AND DIFFERENTIAL (10/28/2024 11:22 AM EDT) ComponentValueRef RangeTest MethodAnalysis TimePerformed AtPathologist SignatureWBC7.303.70 - 11.00 k/uL10/28/2024 11:55 AM EDTCZANESVILLE CITY [facility] LABRBC5.214.20 - 6.00 m/uL10/28/2024 11:55 AM EDTCZ[facility] QQTEhhpizksev44.7(L)13.0 - 17.0 g/dL10/28/2024 11:55 AM EDTC[facility] WUFTrdalegnqu31.839.0 - 51.0 %10/28/2024 11:55 AM EDT [facility] GVEQXR32.3(L)80.0 - 100.0 fL10/28/2024 11:55 AM EDTC[facility] LRSHGG66.4(L)26.0 - 34.0 pg10/28/2024 11:55 AM [facility]TC[facility] BUMKGMO57.130.5 - 36.0 g/dL10/28/2024 11:55 AM EDTCZ[facility] LABRDW-CV16.3(H)11.5 - 15.0 %10/28/2024 11:55 AM [facility] LABPlatelet Fkdrp813290 - 400 k/uL 10/28/2024 11:55 AM EDTCZAN[facility] LABMPV8.8(L)9.0 - 12.7 fL 10/28/2024 11:55 AM EDTC[facility] LABNeutrophils %73.5% 10/28/2024 11:55 AM EDTC[facility] LABAbs Neut5.361.45 - 7.50 k/uL10/28/2024 11:55 AM EDTC[facility] LABLymphocytes %16.4% 10/28/2024 11:55 AM EDTC[facility] LABAbs Lymph1.201.00 - 4.00 k/uL10/28/2024 11:55 AM [facility] LABMonocytes %8.4 %10/28/2024 11:55 AM [facility] LABAbs Mono0.61<0.87 k/uL 10/28/2024 11:55 AM [facility] LABEosinophils %0.8% 10/28/2024 11:55 AM [facility] LABAbs Eosin0.06<0.46 k/uL 10/28/2024 11:55 AM [facility] LABBasophils %0.5% 10/28/2024 11:55 AM [facility] LABAbs Baso0.04<0.11 k/uL 10/28/2024 11:55 AM [facility] LABImmature Granulocytes % 0.4%10/28/2024 11:[address] [facility] LABAbs Immature Gran 0.03<0.10 k/uL10/28/2024 11:55 AM [facility] LABNRBC0.0 /100 WBC10/28/2024 11:55 AM [facility] LABAbsolute nRBC <0.01<0.01 k/uL10/28/2024 11:[address] [facility] LABDiff UvorNoqg10/04/2025 11:[address] [facility] LABSpecimen (Source)Anatomical Location / LateralityCollection Method / VolumeCollection TimeReceived TimeBloodBLOOD SPECIMEN / UnknownVenipuncture / Oxwepkt5610/28/2024 11:22 AM EDT10/28/2024 11:22 AM EDT Narrative Authorizing ProviderResult TypeResult StatusVahicaryn Clifford MDLABORATORYFinal ResultPerforming OrganizationAddressCity/State/ZIP CodePhone Number [facility] [address] [address], * C-REACTIVE PROTEIN (10/28/2024 11:22 AM EDT)ComponentValueRef RangeTest Method Analysis TimePerformed AtPathologist SignatureCRP<0.3<0.9 mg/dL10/28/2024 2:[address] [facility] LABSpecimen (Source)Anatomical Location / LateralityCollection Method / VolumeCollection TimeReceived TimeBloodBLOOD SPECIMEN / UnknownVenipuncture / Mdafprh0010/28/2024 11:22 AM EDT10/28/2024 11:22 AM EDT Narrative Authorizing ProviderResult TypeResult StatusVapeyman Clifford MDLABORATORYFinal ResultPerforming OrganizationAddressCity/State/ZIP CodePhone Number [facility] [address] [facility] [place] [phone], [place] * SYNOVIAL FLUID, CRYSTAL ID/PATHOLOGIST INTERPRETATION (10/28/2024 11:06 AM EDT)ComponentValueRef RangeTest MethodAnalysis TimePerformed AtPathologist SignatureSite, Kadeem, Left10/30/2024 12:[address] [facility] LABCrystal Prelim, SFPRELIMINARY REPORT No diagnostic crystals seen. SEE FINAL SF PATH ELWQGK6510/30/2024 12:[address] [facility] LABCrystals, SFNone seenNone seen10/30/2024 12:[address] [facility] LABCrystal ReviewReviewed by Edna Johnston MD10/30/2024 12:46 AM EDT [facility] LABSpecimen (Source)Anatomical Location / LateralityCollection Method / VolumeCollection TimeReceived TimeSterile Fluid/Body FluidSHOULDER JOINT SYNOVIAL FLUID / UnknownNon Blood / Unknown 10/28/2024 11:06 AM EDT10/28/2024 12:32 PM EDT Narrative Authorizing ProviderResult TypeResult StatusPalmer Clifford MDLABORATORYFinal ResultPerforming OrganizationAddressCity/State/ZIP CodePhone Number [facility] [address] [facility] Desk [address] [address], [place] * (ABNORMAL) SYNOVIAL FLUID MANUAL DIFF (10/28/2024 11:06 AM EDT)ComponentValue Ref RangeTest MethodAnalysis TimePerformed AtPathologist SignatureDiff Total Synovial Xyqhp675etzty irjkxct3710/30/2024 12:[address] [facility] LABNeut%, SF87(H)0 - <[address]/30/2024 12:46 AM ED[facility] LABLymph%, SF608 12:46 AM ED[facility] Slope%, SF408 12:46 AM ED[facility] LABMacro%, SF1 10/30/2024 12:46 AM ED[facility] LABEosin %, SF208 12:46 AM EDM[facility] LABSpecimen (Source)Anatomical Location / LateralityCollection Method / VolumeCollection TimeReceived Time Sterile Fluid/Body FluidSHOULDER JOINT SYNOVIAL FLUID / UnknownNon Blood / Nrzkmco5610/28/2024 11:06 AM EDT10/28/2024 12:32 PM EDT Narrative [facility] - 10/30/2024 12:46 AM EDT Differential may be inaccurate due to cellular disintegration. Authorizing ProviderResult TypeResult StatusVapeyman Clifford MDLABORATORYFinal ResultPerforming OrganizationAddressCity/State/ZIP CodePhone Number [facility] [address] [place] [address], * BACTERIAL CULTURE AND GRAM STAIN, STERILE BODY FLUID (10/28/2024 11:06 AM EDT) ComponentValueRef RangeTest MethodAnalysis TimePerformed AtPathologist SignatureCulture, Body FldNo growth 14 days MINIMUM INHIBITORY CONCENTRATION(VITEK) 11/11/2024 10:[address] [facility] LABGram StainNo organisms seen11/11/2024 10:[address] [facility] LABGram StainNo Polymorphonuclear Xorooyxktx33/18/2025 10:[address] [facility] LABGram StainGram stain from primary specimen11/11/2024 10:50 AM EDT [facility] LABSpecimen (Source)Anatomical Location / LateralityCollection Method / VolumeCollection TimeReceived TimeSterile Fluid/Body FluidSHOULDER JOINT SYNOVIAL FLUID / UnknownNon Blood / Unknown 10/28/2024 11:06 AM EDT10/28/2024 12:32 PM EDT Narrative Authorizing ProviderResult TypeResult StatusVapeyman Clifford MDMICROBIOLOGYFinal ResultPerforming OrganizationAddressCity/State/ZIP CodePhone Number [facility] [address] [facility] [address] [place] [address], [place] * (ABNORMAL) SYNOVIAL FLUID, ROUTINE (10/28/2024 11:06 AM EDT)ComponentValueRef RangeTest MethodAnalysis TimePerformed AtPathologist SignatureSite, SF Shoulder, Left10/28/2024 3:36 PM EDTCZAN[facility] LABColor, SF Bloody(A)Gmdipw1310/28/2024 3:36 PM EDTCZAN[facility] LABClarity, SFCloudy(A)Clear10/28/2024 3:36 PM EDTC[facility] Supernatant Color, SF10/28/2024 3:36 PM EDTC[facility] Comment:Unable to assay. Quantity not sufficient.Supernatant Clarity, SF 10/28/2024 3:36 PM EDTCZAN[facility] LABComment:Unable to assay. Quantity not sufficient.RBC, SF1,089,900(H)<2,000 /uL10/28/2024 3:36 PM EDT [facility] LABTotal Nucleated Cells, SF817(H)0 - 200 /uL 10/28/2024 3:36 PM EDTCZ[facility] LABSpecimen (Source) Anatomical Location / LateralityCollection Method / VolumeCollection Time Received TimeSterile Fluid/Body FluidSHOULDER JOINT SYNOVIAL FLUID / Unknown Non Blood / Puxdjhs8810/28/2024 11:06 AM EDT10/28/2024 12:32 PM EDT Narrative Authorizing ProviderResult TypeResult StatusVapeyman Clifford MDLABORATORYFinal ResultPerforming OrganizationAddressCity/State/ZIP CodePhone Number [facility] [address] [facility] [address] [place] [address], [place] * ARTHROCENTESIS ASPIR&/INJ MAJOR JT/BURSA W/O US (10/28/2024 10:54 AM EDT) Narrative Palmer Clifford MD - 10/28/2024 10:54 AM EDT Palmer Clifford MD 10/28/2024 1:20 PM Large Joint Arthro/Inj: L shoulder joint 10/28/2024 10:54 AM The procedure site was prepped in the usual sterile fashion. Site: L shoulder joint Aspirate: 2 mL bloody; sent for lab analysis Outcome: Tolerated well, no immediate complications Post-injection instructions were reviewed with the patient and the patient voiced understanding of these instructions. Informed Consent Consent Obtained: Verbal Nisula Protocol A moment to CARE was completed. [...] team (including bedside nurse for hospitalized patients). Authorizing ProviderResult TypeResult StatusVahid Entezari MDPROCEDUREFinal Result from Last 3 Months Insurance Care Teams Team MemberRelationshipSpecialtyStart DateEnd Date Max Ojeda DO PCP - GeneralInternal Medicine05/25/20 [facility] [address] [place] [address] Orthopedics09/30/24
== END 2025-01-27 20:52 | disposition home or self-care (01) ==
PROVIDERS: PCP Internal Medicine; Visit Provider Internal Medicine
DX: G47.33 Obstructive sleep apnea (adult) (pediatric) (principal)
CPT/HCPCS: 95810

== ENCOUNTER 2025-03-05 20:42 | Outpatient (OUT) | payer OTHER, SELFPAY ==
--- OUTSIDE RECORDS SUMMARY | 2025-02-17 10:40 | XMS_ITS | Encounter Summary ---
Author Organization [facility] Address [facility] [place] [id number] Care Team Providers Care Communications Technician Name Role Phone Max Ojeda DO Primary Care Provider [phone] Zen Tavera Unavailable Source Comments In the event this information is protected by the Federal Confidentiality of Alcohol and Drug AbusePatient Records regulations: The Federal rules restrict any use of the information to criminally investigate or prosecute any alcohol or drug abuse patient.[facility] Reason for Referral * Outpatient Procedure (Routine) - ClosedSpecialtyDiagnoses / ProceduresReferred By ContactReferred To ContactPREMIER [facility] Diagnoses Pre-op evaluation Procedures ECG COMPLETE ECG ROUTINE ECG W/LEAST 12 LDS W/I&R Gloria Rueda APRN.CNP [address] [place] [address] Phone: tel: fax: [facility] [address] [place], [place] [id number] Referral IDStatusReasonStart DateExpiration DateVisits RequestedVisits [id number] Auto-Generated Referral / Reason for Visit * Consult, Test, Treat (Routine) - ClosedSpecialtyDiagnoses / ProceduresReferred By ContactReferred To Contact Diagnoses Chronic left shoulder pain S/P shoulder replacement, left Loose orthopedic implant, subsequent encounter 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) Left shoulder pain, unspecified chronicity Loose orthopedic implant, initial encounter Instability of left shoulder joint Procedures OFFICE/OUTPATIENT [facility] 60 MINUTES Palmer Clifford MD [address] [place] [address] Phone: tel: fax: Referral IDStatusReasonStart DateExpiration DateVisits RequestedVisits [id number] PCP Requested Referral Encounter Details DateTypeDepartmentCare Team (Latest Contact Info)Iitnflsucwm49/24/2025 10:40 AM ESTPAT Pre Anesthesia [address] [place] [id number], [facility] [address] [place] [address] Pre-op evaluation (Primary Dx); Chronic left shoulder pain; S/P shoulder replacement, left; Loose orthopedic implant, subsequent encounter; 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); Left shoulder pain, unspecified chronicity; Loose orthopedic implant, initial encounter; Instability of left shoulder joint; Impaired fasting glucose; ZAHIRA on CPAP; Anxiety and depression; Hyperlipidemia, unspecified hyperlipidemia type; Gastroesophageal reflux disease without esophagitis; Type 2 diabetes mellitus without complication, without long-term current use of insulin (HCC); History of anesthesia complications Social History Tobacco UseTypesPacks/DayYears UsedDateSmoking Tobacco: NeverPassive Smoke Exposure: NeverSmokeless Tobacco: FormerChew, Snuff Tobacco Cessation:Counseling Given: Not Answered Comments:Used over 30 years ago Area Deprivation IndexAnswerDate RecordedNational Score (1-100), lower number is lower [id number] Score (1-10), lower number is lower [id number] Data from: https://www.neighborhoodatlas.medicine.[facility].edu/. Last address used for izygjplmnox[address]/[birth year][address]Sex and Gender InformationValueDate RecordedSex Assigned at TdmzwJedc77/05/2021 8:34 PM EDTLegal LfwBjjf32/02/2012 8:45 AM ESTGender VinfghirPqhw06/05/2021 8:34 PM EDTSexual OrientationStraight 07/29/2020 8:34 PM EDTdocumented as of this encounter Last Filed Vital Signs Vital SignReadingTime TakenCommentsBlood Akydygvo260/8402/17/2025 10:19 AM EST Silgj760802/17/2025 10:19 AM XWMRxzqxaylsmi99.7 ??C (98 ??F)02/17/2025 10:19 AM ESTRespiratory Rate--Oxygen Bpvbpepehd280%02/17/2025 10:19 AM ESTInhaled Oxygen Concentration--Xqngly86.1 kg (169 lb 15.6 oz)02/17/2025 10:19 AM HLUShvhpf852.8 cm (5' 10 )02/17/2025 10:19 AM ESTBody Mass Index24.39104/19/2024 10:19 AM EST documented in this encounter Patient Instructions * Patient Instructions* Gloria Rueda, WIN.SECURITY INCIDENT HANDLER - 02/17/2025 11:06 AM EST Images from the original note were not included. [facility] PATIENT PREOPERATIVE INSTRUCTIONS Palmer Clifford MD has scheduled you for your procedure at this surgery center: If you do not get a phone call the day before your surgery/procedure with the arrival time and details, by 3:30-4:00pm, please call the number below: [phone] [facility]: --[address] [place] [address]. - To obtain your arrival time for surgery, call your physician's office the day before your surgery. - If you have received different instructions about finding out your arrival time from your surgeon, please follow those instructions. - If your surgery is scheduled for Monday, call the Monday before. Your surgeon???s repair technician will tell you what time to call the office. Please read below carefully for your personalized instructions. Dietary Restrictions: - No solid food after midnight. - You may have 12 ounces of clear liquids (water, clear juices such as apple juice or gatorade, carbonated beverages, clear tea, black coffee, jello) until 2 hours before scheduled arrival at facility. - Do not drink any alcohol after midnight the night before your surgery. Medications: Unless instructed differently below, stay on all of your medications until your surgery. If you start any new medications after today's visit, please contact your surgeon. Pre-Surgery Med Instructions Medication Instructions empagliflozin (JARDIANCE) 10 mg tablet Stop 3 days preoperatively, last dose 03/14/25 buPROPion SR (WELLBUTRIN SR) 150 mg 12 hr tablet Continue as normal MEDICATION, NON-DATABASE Stop 7 days prior to surgery MEDICATION, NON-DATABASE Stop 1 week before surgery MEDICATION, NON-DATABASE Stop 1 week before surgery ALPRAZolam (XANAX) 0.25 mg tablet Okay to take the night before surgery if needed Ok to take on the morning if needed; let us know if you take the medication and what time you took it atorvastatin (LIPITOR) 80 mg tablet Continue as normal citalopram (CELEXA) 20 mg tablet Continue as normal glimepiride (AMARYL) 2 mg tablet Do not take the day of surgery metFORMIN (GLUCOPHAGE) 1,000 mg tablet Do not take the day of surgery omeprazole (PRILOSEC) 40 mg capsule Continue as normal SITagliptin-metFORMIN (JANUMET) 50-1,000 mg per tablet Stop 2 days preoperatively, last dose 03/15/25 - If you take any medications for erectile dysfunction-Cialis (Tadalafil), Levitra, Staxyn (Vardenafil) Viagra (Sildenenafil please do not take these for 48 hours before surgery. - If you start any new medications after today's visit, please contact the surgeon's office. Blood Thinning Medications: - Stop NSAIDS (Ibuprofen, Advil, Aleve, Motrin, Celebrex, Mobic, etc.) 7 days before surgery, as directed by your surgeon. - Stop Aspirin 7 days before surgery, as directed by your surgeon. - Stop Vitamin E, herbals and dietary supplements 7 days before surgery. - You may take Tylenol (Acetaminophen) or any of your pain medications that do not contain aspirin or NSAIDS as needed. Important Reminders: - If you use CPAP/BIPAP, bring the machine with you to the surgery center. --- - No Marijuana for 1 week prior to surgery - Morning of surgery - NO Candy, mints, or gum. - NO smoking or tobacco products permitted the morning of surgery. - Hearing aids, dentures and glasses may be worn the morning of surgery. - NO jewelry, body piercings, makeup, hairpins or contacts are to be worn the day of surgery. - NO lotions, creams, ointments, or deodorant are to be used on the day of surgery. -Please be sure to brush your teeth and you can use mouth wash or rinse your mouth if dry. - - - If you develop symptoms such as a fever, cold, or flu, or have other changes to your health within TWO DAYS of scheduled surgery or the morning of surgery, please contact the surgery center above. Personal Belongings: -Please have photo ID and insurance cards. -If you do not have a copy of advance directives on file with us, please bring a copy with you on the day of surgery. - Leave ALL valuables and money at home or with family members. For Outpatient Procedures: - YOU MUST HAVE A RESPONSIBLE WASHING MACHINE MECHANIC TAKE YOU HOME. A PRODUCTION SUPPORT DEVELOPER OR WAREHOUSE SELECTOR CANNOT BE MADE A RESPONSIBLE WASHING MACHINE MECHANIC. - We recommend that a responsible person stays with you overnight to take care of you. - You cannot stay in a hotel alone after outpatient surgery. You will not be permitted to have yoursurgery, if you do not have someone to take care of you. Arrival Time for Surgery: Please be aware that emergency situations arise, which may delay or change your surgical time. If this happens, we will notify you as soon as possible and regret any inconvenience. If you already have an Advance Directive, please fax a copy to [phone] or email to for it to be added to your chart. If you do not have an Advance Directive, you can find the appropriate form and more information at [email or web address]. We recommend that youcomplete the Advance Directive form found on the website and bring it with you the day of your surgery. It can be witnessed and scanned into your chart that day. Gloria Rueda APRN.SECURITY INCIDENT HANDLER documented in this encounter H&P Notes * Gloria Rueda APRN.CNP - 02/17/2025 10:28 AM EST Images from the original note were not included. [facility] Pre[facility] HISTORY AND PHYSICAL EXAMINATION SERVICE DATE: 02/17/2025 SERVICE TIME: 10:28 AM PRIMARY CARE PHYSICIAN: Max Ojeda, DO Assessment Patient has the following medical conditions which may affect fred-operative course: 1. Pre-op evaluation (Z01.818) - Preoperative risk [facility] - Prior anesthesia event on 05/22/2024 with prolonged paralysis and ICU admission; will obtain anesthesia records from [facility] for review. - Advised to stop all herbal vitamins and dietary supplements one week prior to surgery. - Reviewed diabetes medication management for day of surgery. - Advised to bring CPAP if available on day of surgery. 2. Chronic left shoulder pain (M25.512) 3. S/P shoulder replacement, left (Z96.612) 4. Loose orthopedic implant, subsequent encounter (T84.039D) 5. 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 Left shoulder pain, unspecified chronicity (M25.512) 7. Loose orthopedic implant, initial encounter (T84.039A) 8. Instability of left shoulder joint (M25.312) - Chronic left shoulder pain and instability following shoulder replacement in March 2023; imaging revealed loose glenoid component. - Aspiration of shoulder performed on November 18, 2024; inflammatory markers were normal. - Patient elects to proceed with revision surgery. 9. Impaired fasting glucose (R73.01) 10. Type 2 diabetes mellitus without complication, without long-term current use of insulin (HCC) (E11.9) - Most recent A1c per patient, January 30 was 7.7%, improved from 8.2% in April - results not available in hans review, Hgb A1c pending today - Home blood glucose readings in the morning range from 138-158 mg/dL. Managed on Jardiance 10mg every day, Amaryl 2mg every day, Metformin 100mg BID, Janumet BID, Detailed preoperative medication instructions discussed with patient 11. ZAHIRA on CPAP (G47.33) - Recently diagnosed; scheduled for CPAP fitting on March 05. - Advised to bring CPAP device to hospital on day of surgery if available. 12. Anxiety and depression (F41.9) - Managed with Celexa 20 mg nightly and Xanax as needed, reportedly used a few times per week. Detailed preoperative medication instructions discussed with patient 13. Hyperlipidemia, unspecified hyperlipidemia type (E78.5) - Managed with Lipitor 80 mg daily. 14. Gastroesophageal reflux disease without esophagitis (K21.9) - Managed with omeprazole 40 mg daily in the morning; symptoms well controlled. History of anesthesia complications Assessment: 04/2024:L shoulder surgery at [facility] Reviewed OSH records from 04/2024 - including anesthesia records and discharge summary. Per anesthesia records patient was awake and alert however per the discharge summary, per anesthesia, the patient woke up and was very weak, could not move extremities and eyes were dilated. Concern for serotonin syndrome which was ruled out later. He received flumazenil and Sugammadex. Patient started to do better mildly after several hours. patient symptoms consistent with anesthesia medicationreaction. by the following day, symptoms were completely resolved. - received versed 4mg, Miquel 50mg Discussed case with staff anesthesiologist Dr. Kilgore, feels that patient prior experience 04/2024 likely singular event, - nothing further needed and may proceed with scheduled surgery ANESTHESIA FINDINGS: Intubation History: No history of difficult intubation. No abnormal airway history Significant Anesthesia Considerations: 04/2024 -does not remember being taken to OR, as well post opperiod- paralyzed and required ICU admission, took ~10hrs to recover- required reversal agents- no prolonged intubation,this was at [facility], will request records none Airway History: No history of difficult airway No abnormal airway history History of head/neck surgery that distorted airway, including mouth, neck, or their mobility (2009 ANTERIOR CERVICAL DISCECTOMY W/ FUSION) [place] Activity Status Index: METS: Walk indoors, such as around the house (1.75 METs) Do light work around the house, such as dusting or washing dishes (2.70 METs) Take care of self; that is eating, dressing, bathing, using the toilet (2.75 METs) Walk a block or two on level ground (2.75 METs) Do moderate work around the house, such as vacuuming, sweeping floors, or carrying in groceries (3.50 METs) Climb a flight of stairs or walk up a hill (5.50 METs) DASI Score: 18.95 Patient denies any chest pain or undue shortness of breath with the above physical activity. Clinical Frailty Scale: 3. Well, with treated comorbid disease STOP-Bang Score: Snores loudly Has been observed to stop breathing or choking/gasping during sleep Patient over 50 years old Male patient Denies feeling tired, fatigued, or sleepy during the daytime Denies having high blood pressure BMI less than or equal to 35 kg/m^2 Does not have a large neck STOP-Bang Score: 4 (New diagnosis of ZAHIRA, 03/05 will be fitted for mask, unsure if CPAP or BiPAP) SAK6UV5-EWZi Score: Diabetes history: Yes NWY7RU4-OHRq Score: I - PHYSICAL EVALUATION AIRWAY Patient intubated: No. Tracheostomy tube not present Mallampati: IV. TM distance: >3 FB. Neck ROM: full ROM without neurological symptoms. Mouth opening: >3 FB. Short neck: no. Thick neck: no Antonio present: no Lip Bite Test: III Microretrognathia/Micronagthia/Recessed Chin: No DENTAL Dental findings: teeth intact, caps/crowns and missing tooth/teeth. II - ANESTHESIA PLAN Informed Consent Prepared for Surgery: optimally prepared for surgery, pending [see comment]. BMP ordered by surgical service EKG, T&S, Con Abo, CBC, hgb a1c ordered by in Addendum 02/21/2025 Labs and EKG reviewed and accepted from 02/17/25 Elevated hgb A1c [facility] RN to assist in obtaining OSH anesthesia records from 05/22/24 Sent FYI TE to surgical team about elevated A1c Addendum 02/26/2025 Surgical team is aware of elevated hgb A1c and received the following response from them -- TE from02/21/25 Dorinda Jean, RN 02/26/25 10:31 AM We are okay to proceed per Dr. Clifford-thank you Reviewed OSH records from 04/2024 - including anesthesia records and discharge summary. Per anesthesia records patient was awake and alert however per the discharge summary, per anesthesia, the patient woke up and was very weak, could not move extremities and eyes were dilated. Concern for serotonin syndrome which was ruled out later. He received flumazenil and Sugammadex. Patient started to do better mildly after several hours. patient symptoms consistent with anesthesia medicationreaction. by the following day, symptoms were completely resolved. CONSULTS: The following consults have been initiated at this time: anesthesia (see below). Planned Anesthetic: anesthesia choice OSH anesthesia records from 05/22/24 External Document(s) - Miscellaneous Clinical Documents- ANESTHESIA RECOR (02/21/2025) External Document(s) - Discharge Summary (02/21/2025) Addendum 02/26/2025 Reviewed OSH records from 04/2024 - including anesthesia records and discharge summary. Per anesthesia records patient was awake and alert however per the discharge summary, per anesthesia, the patient woke up and was very weak, could not move extremities and eyes were dilated. Concern for serotonin syndrome which was ruled out later. He received flumazenil and Sugammadex. Patient started to do better mildly after several hours. patient symptoms consistent with anesthesia medicationreaction. by the following day, symptoms were completely resolved. Addendum 02/28/2025 Discussed case with staff anesthesiologist Dr. Kilgore, feels that patient prior experience 04/2024 likely singular event, - nothing further needed and may proceed with scheduled surgery The Following Tests/Procedures Have Been Initiated: Orders Placed This Encounter CBC Standing Status: Future Number of Occurrences: 1 Expected Date: 02/17/2025 Expiration Date: 05/19/2025 Hemoglobin A1C Standing Status: Future Number of Occurrences: 1 Expected Date: 02/17/2025 Expiration Date: 05/19/2025 Confirm Blood Type Order Comments: Draw separate from TSCR Standing Status: Future Number of Occurrences: 1 Expected Date: 02/17/2025 Expiration Date: 05/19/2025 Did Blood Bank direct you to place this order:: No - Presurgical Workflow Type and Screen, 30 day Standing Status: Future Number of Occurrences: 1 Expected Date: 02/17/2025 Expiration Date: 05/19/2025 Hospital of Planned Surgery or Procedure:: [facility] Status of surgery/procedure:: Scheduled Date of surgery/procedure:: 03/18/2025 empagliflozin (JARDIANCE) 10 mg tablet Sig: Take 10 mg by mouth once daily. buPROPion SR (WELLBUTRIN SR) 150 mg 12 hr tablet Sig: Take 150 mg by mouth every morning. MEDICATION, NON-DATABASE Sig: Take 1 tablet by mouth once daily. Ovyudelka mal peformance gummies 3750mg ACV + 375 MG BHB BLEND MEDICATION, NON-DATABASE Sig: Take 1 tablet by mouth two times a day. Oxvia Nitric oxide booster MEDICATION, NON-DATABASE Sig: Take 1 capsule by mouth once daily. Oxvia testosterone booster ECG COMPLETE Standing Status: Future Number of Occurrences: 1 Expected Date: 02/17/2025 REASON FOR VISIT: Alex Vasquez JR is a 54 year old male who is scheduled for Procedure(s): REVISE TOTAL SHOULDER ARTHROPLASTY INCL ALLOGRAFT WHEN PERFORMED HUMERAL AND GLENOID COMPONENT (Left) at the request of Palmer Larios MD for consultation. My final recommendation will be communicated back to the requesting physician by way of shared medical record or letter. Subjective The patient has the following: COVID-19 Immunization Status Current Care Gaps Covid-19 Vaccine ( season) Overdue since 11/25/2024 02/04/2021 Outside Immunization: COVID-19 Vaccine Pfizer - Documentation Purposes Only 01/14/2021 Outside Immunization: COVID-19 Vaccine Pfizer - Documentation Purposes Only CHIEF COMPLAINT: Preop exam HPI: Alex Vasquez JR is a 54 year old male. Seen in [facility] today, presenting for preoperative anesthesia evaluation prior to left shoulder revision total shoulder arthroplasty for chronic pain and implant loosening with instability. Reports chronic pain and instability of the left shoulder joint. History of left shoulder replacement in 04/2024. Imaging revealed a loose glenoid component. Shoulderaspiration on 11/18/2024 showed normal inflammatory markers.. Patient is scheduled and elects to proceed with the above procedure on 03/18/2025. Denies fevers, chills, chest pain, and SOB. REVIEW OF SYSTEMS: General: Negative for: weight loss >10% of BW in last 6 months, malaise and fever. Neurological: Negative for: FIRESETTER tumor, delirium, dementia, headaches, hemiplegia, multiple sclerosis, Parkinson'sdisease, peripheral neuropathy, seizures, TIA and strokes. Respiratory: Positive for: obstructive sleep apnea (awaiting fit for device and requirements on 03/05). Negative for: asthma, COPD, current cough, dyspnea, home oxygen, pneumonia within 6 weeks, tobacco use and URI < 2 weeks. Cardiovascular: Positive for: hyperlipidemia Negative for: abdominal aortic aneurysm, AICD/PPM, angina, anticoagulation therapy, arrhythmia, atrial fibrillation, CAD, chest pain, CHF, congenital heart defect, DVT/PE, hypertension, recent KS, murmur/valvular heart disease, PTCA, PVD, open heart surgery and valve surgery. GI: Positive for: GERD Negative for: abdominal pain, colon cancer, dysphagia, diverticulitis, heartburn, hepatitis, irritable bowel syndrome, inflammatory bowel disease, liver disease, nausea, pancreatitis, history of polyps, rectal cancer and vomiting. : Negative for: BPH, decreased stream, dysuria, flank pain, frequent urination, hematuria, hesitancy,urinary incontinence, nephrolithiasis, renal failure, self catheterization and urinary tract infection. Endocrine: Positive for: diabetes mellitus. Patient's diabetes mellitus is controlled by oral agents. Negative for: diabetic neuropathy, hyperthyroidism, hypothyroidism, hyperparathyroidism and steroidfor chronic problem. Hematology: Negative for: anemia, bruises/bleeds easily, factor V Leiden, hemophilia, thrombocytopenia, von Willebrand disease and chronic anti-coagulation/platelet meds. Oncology: Negative for: CA metastasis and chemo within 30 days. Psych: Positive for: anxiety and depression. Negative for: ADHD, bipolar disorder and drug dependency. Musculoskeletal: See HPI. Positive for: joint pain (L shoulder). Negative for: back pain and swelling. Skin: Negative for: lesions, itching and rash. Implanted Devices: No implanted devices. The patient has the following comorbidities: Diabetes mellitus Continue current outpatient treatment plan and current medications for these conditions, except where otherwise noted. History reviewed. No pertinent past medical history. PAST SURGICAL HISTORY Procedure Laterality Date APPENDECTOMY KNEE LEFT OP SURGERY x2 PAST SURGICAL HISTORY OF 04/2024 L shoulder replacement PAST SURGICAL HISTORY OF 01/2024 L shoulder arthroscopy PAST SURGICAL HISTORY OF Left L knee acl PAST SURGICAL HISTORY OF hernia repair PAST SURGICAL HISTORY OF 2009 ANTERIOR CERVICAL DISCECTOMY W/ FUSION REMOVAL GALLBLADDER FAMILY HISTORY Problem Relation Age of Onset Anesthesia Problems No Family History Social History[1] Prior to Admission medications as of 02/17/25 1044 Medication Sig Last Dose Taking empagliflozin (JARDIANCE) 10 mg tablet Take 10 mg by mouth once daily. Yes buPROPion SR (WELLBUTRIN SR) 150 mg 12 hr tablet Take 150 mg by mouth every morning. Yes MEDICATION, NON-DATABASE Take 1 tablet by mouth once daily. Ovia mal peformance gummies 3750mg ACV + 375 MG BHB BLEND Yes MEDICATION, NON-DATABASE Take 1 tablet by mouth two times a day. Oxvia Nitric oxide booster Yes MEDICATION, NON-DATABASE Take 1 capsule by mouth once daily. Oxvia testosterone booster Yes ALPRAZolam (XANAX) 0.25 mg tablet Take 0.25 mg by mouth. Yes atorvastatin (LIPITOR) 80 mg tablet Yes citalopram (CELEXA) 20 mg tablet Yes glimepiride (AMARYL) 2 mg tablet Yes metFORMIN (GLUCOPHAGE) 1,000 mg tablet Yes omeprazole (PRILOSEC) 40 mg capsule TAKE 1 CAPSULE ON EMPTY STOMACH FOLLOWED IN 30 MINUTES BY BREAKFAST Patient taking differently: Take 40 mg by mouth once daily. Yes SITagliptin-metFORMIN (JANUMET) 50-1,000 mg per tablet Take by mouth. Patient taking differently: Take 1 tablet by mouth two times a day with meals. Yes blood sugar diagnostic (ONETOUCH ULTRA TEST STRIP) test strip FREESTYLE LITE METER monitoring kit USE TO TEST HOME BLOOD SUGAR ONCE EVERY DAY FREESTYLE LITE STRIPS test strip TEST WITH 1 STRIP DAILY NEEDED FREESTYLE LANCETS 28 gauge USE TO TEST HOME BLOOD SUGAR ONCE DAILY sildenafil (VIAGRA) 100 mg tablet Take 100 mg by mouth. No medication comments found. No Known Allergies Objective PHYSICAL EXAM: General: alert and oriented and healthy appearance. Pertinent negatives noted - not distressed. Skin: normal color, no rash or lesions. HEENT: EOM intact and pupils equal round. Pertinent negatives noted - no carotid bruit. Cardiovascular: regular rate and rhythm, normal S1 and S2, no rub, murmurs, or gallop. Respiratory: normal breath sounds, no wheezes or crackles. No chest wall deformity or tenderness. Abdomen: Extremities: no deformity, no edema or tenderness, no joint swelling or clubbing. Neurological: normal cognition and motor skills. Gait normal. No weakness or sensory deficit. PAIN ASSESSMENT: Pain Pain Level: 2 Pain Location: Shoulder-Left Description: Stabbing, Stiffness Duration Amount of Time: 2 Duration Units: Years Frequency: Continuous VITALS: BP 137/84 Pulse 91 Temp (Src) 98 (Temporal) Ht 5' 10 (1.78m) Wt 169 lb 15.6 oz (77.1kg) SpO2 100% BMI 24.39 kg/(m^2). Diagnostic tests reviewed for today's visit: Lab Value Units Date High Low HB 12.5 g/dL 02/17/2025 17.0 13.0 HCT 41.4 % 02/17/2025 51.0 39.0 WBC 7.12 k/uL 02/17/2025 11.00 3.70 PLT 334 k/uL 02/17/2025 400 150 NA 139 mmol/L 02/17/2025 144 136 K 4.6 mmol/L 02/17/2025 5.1 3.7 GLUC 116 mg/dL 02/17/2025 99 74 BUN 15 mg/dL 02/17/2025 24 9 CREAT 0.71 mg/dL 02/17/2025 1.22 0.73 PTSEC No results within date range. INR No results within date range. APTT No results within date range. ALT No results within date range. AST No results within date range. TBILI No results within date range. TSH No results within date range. Lab Value Units Date High Low HCGQT No results within date range. UHCG No results within date range. HCG, BODY* No results within date range. Lab Value Units Date High Low ABORHD No results within date range. ABSCREEN No results within date range. Hemoglobin A1C (%) Date Value 02/17/2025 7.5 Recent Results (from the past 8760 hours) ECG COMPLETE Collection Time: 02/17/25 11:30 AM Result Value Ventricular Rate 73 Atrial Rate 73 P-R Interval 184 QRS Duration 98 QT Interval 372 QTC Calculation (Bazett) 409 Calculated P [place] 62 Calculated R [place] 27 Calculated T [place] 32 Impression NORMAL SINUS RHYTHM NORMAL ECG No results found for this or any previous visit (from the past 00042 hours). Instructions Given to Patient: Instructions located in the after visit summary. Patient given verbal and written preop instructions and voices comprehension and compliance. SIGNATURE: Gloria Rueda APRN.CNP PATIENT NAME: Alex Vasquez JR DATE: February 17, 2025 TIME: 11:23 AM PAGER/CONTACT #: [1] Social History Tobacco Use Smoking status: Never Passive exposure: Never Smokeless tobacco: Former Types: Chew, Snuff Tobacco comments: Used over 30 years ago Substance Use Topics Drug use: Never documented in this encounter Plan of Treatment DateTypeDepartmentCare Team (Latest Contact Info)Crqmawbxood28/23/2025 7:15 AM ESTHospital Encounter Admitting [address] [place] [phone] Palmer Clifford MD [address] [place] [id number] Chronic left shoulder pain [M25.512, G89.29], S/P shoulder replacement, left [Z96.612], Loose orthopedic implant, subsequent encounter [T84.039D], 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], Left shoulder pain, unspecified chronicity [M25.512], Loose orthopedic implant, initial encounter [T84.039A], 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]03/18/2025 7:15 AM EST - 03/18/2025 12:11 PM ESTSurgery Admitting [address] [place] [address] Palmer Clifford MD [address] [place] [address] REVISE TOTAL SHOULDER ARTHROPLASTY INCL ALLOGRAFT WHEN PERFORMED HUMERAL AND GLENOID PBIHIOWGT17/05/2026 9:00 AM ESTOffice Visit Orthopaedics [address] [place] [address] [place] [address] John Singh PA [address] [address] post op DOS 03/18NameTypePriorityAssociated DiagnosesDate/TimeECG COMPLETEECG Routine Pre-op evaluation 02/17/2025 11:30 AM ESTNamePriorityAssociated DiagnosesDate/TimeREVISE TOTAL SHOULDER ARTHROPLASTY INCL ALLOGRAFT WHEN PERFORMED HUMERAL AND GLENOID COMPONENT Chronic left shoulder pain S/P shoulder replacement, left Loose orthopedic implant, subsequent encounter 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) Left shoulder pain, unspecified chronicity Loose orthopedic implant, initial encounter Instability of left shoulder joint 03/18/2025 7:15 AM ESTdocumented as of this encounter Goals GoalPatient Goal TypeAssociated ProblemsRecent ProgressPatient-Stated?Author Autogenerated Goal Care PlanAutogenerated ProblemNoBoard Vicente Dumont, HUCdocumented as of this encounter Results * CONFIRM BLOOD TYPE (02/17/2025 12:04 PM EST)ComponentValueRef RangeTest Method Analysis TimePerformed AtPathologist HiuudsohlBZKY18/26/2025 8:30 AM EST [facility] LABRh(D)Yehifufr19/26/2025 8:30 AM [facility] LABSpecimen (Source)Anatomical Location / LateralityCollection Method / VolumeCollection TimeReceived TimeBloodBLOOD SPECIMEN / UnknownVenipuncture / Dpcmndu2802/17/2025 12:04 PM EST02/17/2025 12:04 PM EST Narrative Authorizing ProviderResult TypeResult StatusValerie Karli Rueda MANAGER COMPLIANCE.CNPBLOOD BANK Final ResultPerforming OrganizationAddressCity/State/ZIP CodePhone Number [facility] [address] * TYPE AND SCREEN,30 DAY (02/17/2025 11:59 AM EST)ComponentValueRef RangeTest MethodAnalysis TimePerformed AtPathologist MloafpctvGQMF80/24/2025 5:54 PM EST [facility] LABRh(D)Vabnehvg59/24/2025 5:54 PM [facility] LABAntibody TlwvhjAxtldxab58/24/2025 5:54 PM [facility] Specimen (Source)Anatomical Location / LateralityCollection Method / Volume Collection TimeReceived TimeBloodBLOOD SPECIMEN / UnknownVenipuncture / Oadeiwr7102/17/2025 11:59 AM EST02/17/2025 11:59 AM EST Narrative Authorizing ProviderResult TypeResult StatusValerie L Rueda MANAGER COMPLIANCE.CNPRIVERVIEW [facility]ALTH [facility] BANK Final ResultPerforming OrganizationAddressCity/State/ZIP CodePhone Number [facility] [address] [place] [address], * (ABNORMAL) HEMOGLOBIN A1C (02/17/2025 11:59 AM EST)ComponentValueRef RangeTest MethodAnalysis TimePerformed AtPathologist SignatureHemoglobin A1C7.5(H)4.3 - 5.6 %02/17/2025 5:57 PM [facility] LABComment:[place] Diabetes Association guidelines indicate that patients with HgbA1c in the range 5.7- 6.4% are at increased risk for development of diabetes, and intervention by lifestyle modification may be beneficial. HgbA1c greater or equal to 6.5% is considered diagnostic of diabetes.Estimated Average Khgdctw484jr/dL02/17/2025 5:57 PM [facility] LABComment:eAG: (Estimated average glucose) is a calculated value from HgbA1c and is installation service representative of the average blood glucose level in the last 2-3 month period.Specimen (Source)Anatomical Location / LateralityCollection Method / VolumeCollection TimeReceived Time BloodBLOOD SPECIMEN / UnknownVenipuncture / Vczjfjc6702/17/2025 11:59 AM EST 02/17/2025 11:59 AM EST Narrative Authorizing ProviderResult TypeResult StatusValerie L Rueda MANAGER COMPLIANCE.CNPLABORATORY Final ResultPerforming OrganizationAddressCity/State/ZIP CodePhone Number [facility] [address] [place] [address], * (ABNORMAL) COMPLETE BLOOD COUNT AND DIFFERENTIAL (02/17/2025 11:59 AM EST) ComponentValueRef RangeTest MethodAnalysis TimePerformed AtPathologist SignatureWBC7.123.70 - 11.00 k/uL02/17/2025 12:59 PM [facility] LABRBC5.404.20 - 6.00 m/uL02/17/2025 12:59 PM [facility] Xxuvhoxsea83.5(L)13.0 - 17.0 g/dL02/17/2025 12:59 PM [facility] XHOJbtqmagmri24.439.0 - 51.0 %02/17/2025 12:59 PM [facility] MCV76.7(L)80.0 - 100.0 fL02/17/2025 12:59 PM [facility] LABMCH 23.1(L)26.0 - 34.0 pg02/17/2025 12:59 PM [facility] XASZUHL42.2 (L)30.5 - 36.0 g/dL02/17/2025 12:59 PM [facility] LABRDW-CV16.5 (H)11.5 - 15.0 %02/17/2025 12:59 PM [facility] LABPlatelet Count 951558 - 400 k/uL02/17/2025 12:59 PM [facility] LABMPV9.39.0 - 12.7 fL02/17/2025 12:59 PM [facility] LABNeutrophils %75.2% 02/17/2025 12:59 PM [facility] LABAbs Neut5.351.45 - 7.50 k/uL 02/17/2025 12:59 PM [facility] LABLymphocytes %14.9%02/17/2025 12:59 PM [facility] LABAbs Lymph1.061.00 - 4.00 k/uL02/17/2025 12:59 PM [facility] LABMonocytes %7.7%02/17/2025 12:59 PM [facility] LABAbs Mono0.55<0.87 k/uL02/17/2025 12:59 PM [facility] LABEosinophils %1.4%02/17/2025 12:59 PM [facility] LABAbs Eosin0.10<0.46 k/uL02/17/2025 12:59 PM [facility] LABBasophils %0.4%02/17/2025 12:59 PM [facility] LABAbs Baso0.03<0.11 k/uL02/17/2025 12:59 PM [facility] LABImmature Granulocytes %0.4%02/17/2025 12:59 PM [facility] LABAbs Immature Gran0.03<0.10 k/uL02/17/2025 12:59 PM [facility] LABNRBC0.0/100 WBC02/17/2025 12:59 PM [facility] LABAbsolute nRBC<0.01<0.01 k/uL02/17/2025 12:59 PM [facility] LABDiff TldeKnka01/24/2025 12:59 PM [facility] LABSpecimen (Source)Anatomical Location / LateralityCollection Method / VolumeCollection TimeReceived TimeBloodBLOOD SPECIMEN / UnknownVenipuncture / Anqkkso7102/17/2025 11:59 AM EST02/17/2025 11:59 AM EST Narrative Authorizing ProviderResult TypeResult StatusValerie Karli Rueda MANAGER COMPLIANCE.CNPLABORATORY Final ResultPerforming OrganizationAddressCity/State/ZIP CodePhone Number [facility] [address] [place] [phone], documented in this encounter Visit Diagnoses Diagnosis Pre-op evaluation- Primary Preoperative examination, unspecified Chronic left shoulder pain Pain in joint, shoulder region S/P shoulder replacement, left Loose orthopedic implant, subsequent encounter 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) Aseptic necrosis of other bone site Left shoulder pain, unspecified chronicity Loose orthopedic implant, initial encounter Instability of left shoulder joint Other joint derangement, not elsewhere classified, shoulder region Impaired fasting glucose ZAHIRA on CPAP Obstructive sleep apnea (adult) (pediatric) Anxiety and depression Dysthymic disorder Hyperlipidemia, unspecified hyperlipidemia type Gastroesophageal reflux disease without esophagitis Esophageal reflux Type 2 diabetes mellitus without complication, without long-term current use of insulin (HCC) History of anesthesia complications Unspecified adverse effect of anesthesia Chronic left shoulder pain Pain in joint, shoulder region S/P shoulder replacement, left Loose orthopedic implant, subsequent encounter 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 Per anesthesia records patient was awake and alert however per the discharge summary, per anesthesia, the patient woke up and was very weak, could not move extremities and eyes were dilated. Concern for serotonin syndrome which was ruled out later. He received flumazenil and Sugammadex. Patient started to do better mildly after several hours. patient symptoms consistent with anesthesia medicationreaction. by the following day, symptoms were completely resolved. - received versed 4mg, Miquel 50mg Discussed case with staff anesthesiologist Dr. Kilgore, feels that patient prior experience 04/2024 likely singular event, - nothing further needed and may proceed with scheduled surgery documented in this encounter Additional Health Concerns Active ProblemsNoted DateDiagnosed DateAutogenerated Rpmzero6101/29/2025documented as of this encounter Care Teams Team MemberRelationshipSpecialtyStart DateEnd Date Max Ojeda DO PCP - GeneralInternal Medicine05/25/20 [facility] [address] [place] [address] Orthopedics09/30/24documented as of this encounter
--- OUTSIDE RECORDS SUMMARY | 2025-03-05 20:48 | XMS_ITS | Encounter Summary ---
Author Organization [facility] Address [facility] [place] [address] Care Team Providers Care Motor Vehicle Assembler Name Role Phone Max Ojeda DO Primary Care Provider [phone] Zen Tavera Unavailable Source Comments In the event this information is protected by the Federal Confidentiality of Alcohol and Drug AbusePatient Records regulations: The Federal rules restrict any use of the information to criminally investigate or prosecute any alcohol or drug abuse patient.[facility] Reason for Visit * ReasonCommentsFollow Up Encounter Details DateTypeDepartmentCare Team (Latest Contact Info)Tzfapxmhpdv12/28/2025Telephone Pre Anesthesia [address] [place] [phone] Gloria Rueda, TITLE OFFICER.GM [address] [place] [phone] Follow Up Social History Tobacco UseTypesPacks/DayYears UsedDateSmoking Tobacco: NeverPassive Smoke Exposure: NeverSmokeless Tobacco: FormerChew, Snuff Comments:Used over 30 years ago Area Deprivation IndexAnswerDate RecordedNational Score (1-100), lower number is lower ycew5614/04/2025State Score (1-10), lower number is lower etyp959 Data from: https://www.neighborhoodatlas.medicine.[facility].edu/. Last address used for [address]/28/2024Sex and Gender InformationValueDate RecordedSex Assigned at BhojqRpvb38/05/2021 8:34 PM EDTLegal HnvEptz89/02/2012 8:45 AM ESTGender YgtqwihxTeda88/05/2021 8:34 PM EDTSexual OrientationStraight 07/29/2020 8:34 PM EDTdocumented as of this encounter Miscellaneous Notes * Telephone Encounter - Ivana Dean - 02/21/2025 3:20 PM EST Dos 03/18 Requested outside records scanned into [employer]. Ivana Dean RN February 21, 2025 3:20 PM * Telephone Encounter - Ivana Dean - 02/21/2025 9:25 AM EST Dos 03/18 I spoke to Medical records with [facility].- [phone]. They are faxing the requested records to [facility] main campus fax. Ivana Dean RN February 21, 2025 9:27 AM * Telephone Encounter - Gloria Rueda APRN.CNP - 02/21/2025 8:51 AM EST [place], Can you please assist in obtaining patient medical records from [facility]. , I need anesthesia records and any notes from the immediate post op period 05/22/2024. ICU notes from day/next day. 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], Left shoulder pain, unspecified chronicity [M25.512], Loose orthopedic implant, initial encounter [T84.039A], 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]03/18/2025 7:15 AM EST - 03/18/2025 12:11 PM ESTSurgery Admitting [facility] [place] [address] Palmer Clifford MD [address] [place] [address] REVISE TOTAL SHOULDER ARTHROPLASTY INCL ALLOGRAFT WHEN PERFORMED HUMERAL AND GLENOID SSQZXAWAT37/05/2026 9:00 AM ESTOffice Visit Orthopaedics [address] [address] John Singh PA [address] [address] post op DOS 03/18NamePriorityAssociated DiagnosesDate/TimeREVISE TOTAL SHOULDER ARTHROPLASTY INCL ALLOGRAFT WHEN [...] Vicente Dumont, HUCdocumented as of this encounter Visit Diagnoses Not on filedocumented in this encounter Additional Health Concerns Active ProblemsNoted DateDiagnosed DateAutogenerated Lslqjms00/05/2025documented as of this encounter Care Teams Team MemberRelationshipSpecialtyStart DateEnd Date Max Ojeda DO PCP - GeneralInternal Medicine05/25/20 Zen [facility] [address] [place] [address] Orthopedics09/30/24documented as of this encounter
--- OUTSIDE RECORDS SUMMARY | 2025-03-05 20:48 | XMS_ITS | Clinical Summary ---
Author Organization [facility] Address [address] [place] [address] Care Team Providers Care Product Lead Name Role Phone Max Ojeda DO Primary Care Provider [phone] Zen Tavera Unavailable Allergies No known active [...] test strip TEST WITH 1 STRIP DAILY UDEHOV2706/22/2020ctive citalopram (CELEXA) 20 mg tablet 07/31/2019Active glimepiride (AMARYL) 2 mg tablet 04/20/2020ctive FREESTYLE LANCETS 28 gauge USE TO TEST HOME BLOOD SUGAR ONCE DAILY04/21/2020ctive metFORMIN (GLUCOPHAGE) 1,000 mg tablet 04/18/2020ctive omeprazole (PRILOSEC) 40 mg capsule TAKE 1 CAPSULE ON EMPTY STOMACH FOLLOWED IN 30 MINUTES BY QSAISTVCG01/08/2021 Active sildenafil (VIAGRA) 100 mg tablet Take 100 mg by mouth.07/31/2019Active SITagliptin-metFORMIN (JANUMET) 50-1,000 mg per tablet Take by mouth.07/31/2019Active empagliflozin (JARDIANCE) 10 mg tablet Take 10 mg by mouth once daily.5Active buPROPion SR (WELLBUTRIN SR) 150 mg 12 hr tablet Take 150 mg by mouth every morning.Active MEDICATION, NON-DATABASE Take 1 tablet by mouth once daily. Ovia mal peformance gummies 3750mg ACV + 375 MG BHB BLENDActive MEDICATION, NON-DATABASE Take 1 tablet by mouth two times a day. Oxvia Nitric oxide boosterActive MEDICATION, NON-DATABASE Take 1 capsule by mouth once daily. Oxvia testosterone boosterActive Active Problems ProblemNoted DateDiagnosed DateHistory of anesthesia cuqftymqhxjpu27/05/2025 Assessment & Plan (02/28/2025 3:12 PM EST): Assessment: 04/2024:L shoulder surgery at OSH -Domingo hinson Reviewed OSH records from 04/2024 - including [...] needed and may proceed with scheduled surgery ZAHIRA on CPAP02/17/2025nxiety and fzedokrhqi36/24/5848Ufwdjaoodnysbk37/24/2025 Gastroesophageal reflux disease without hzhvfvmjiee07/24/2025Type 2 diabetes mellitus without complication, without long-term current use of insulin 02/17/2025Idiopathic aseptic necrosis of left ksxroavi63/25/2025Left shoulder pain10/28/2024S/P shoulder replacement, left10/28/2024Loose orthopedic implant 10/28/2024Instability of left shoulder joint10/28/2024ED (erectile dysfunction) of organic xmfygd3508/03/2020eyronie's gyehuvx8108/03/2020 Encounters DateTypeDepartmentCare CzcrRdqumhbvhjt31/28/2025Telephone Pre Anesthesia [address] [place] [address] Gloria Rueda APRN.CNP pacc preop lab concerns- OR Telephone Pre Anesthesia [address] [place], [place] [address] Gloria Rueda APRN.CNP 02/21/2025Telephone Pre Anesthesia [address] [place] [address] Gloria Rueda APRN.CRYPTOLOGIC LINGUIST Follow Up02/17/2025 2:10 PM ESTProcedure Cardiology [address] [id number] 02/17/2025 12:38 PM EST - 02/17/2025 11:59 PM ESTHospital Encounter Radiology [address] [place] [id number] Chronic left shoulder pain [M25.512, G89.29] Discharge Disposition: Home02/17/2025 10:40 AM ESTPAT Pre Anesthesia [address] [place], [place] [address] 9, Pacc Main Pre-op evaluation (Primary Dx); Chronic left shoulder [...] use of insulin (HCC); History of anesthesia krgdfpnyiqtrt79/24/8673Ohotwh63/05/2025Patient Update Orthopaedics [address] [address] Palmer Clifford MD 01/29/2025Telephone Orthopaedics [address] [address] Palmer Clifford MD Vice President Of Recruiting - Other01/27/2025 11:15 AM ESTOffice Visit Orthopaedics [address] [address] Palmer Clifford MD S/P shoulder replacement, left (Primary Dx); Loose orthopedic implant, subsequent encounterfrom Last 3 Months Family History Medical HistoryRelationCommentsAnesthesia ProblemsNo Family History Social History Tobacco UseTypesPacks/DayYears UsedDateSmoking Tobacco: NeverPassive Smoke Exposure: NeverSmokeless Tobacco: FormerChew, Snuff Tobacco Cessation:Counseling Given: Not Answered Comments:Used over 30 years ago Area Deprivation IndexAnswerDate RecordedNational Score (1-100), lower number is lower fssd952410/28/2024State Score (1-10), lower number is lower yljv222 Data from: https://www.neighborhoodatlas.[place].[facility]/. Last address used for [address]10/28/2024Sex and Gender InformationValueDate RecordedSex Assigned at KiggnJgot69/05/2021 8:34 PM EDTLegal ThyKida38/02/2012 8:45 AM ESTGender MydnngtyYwqe75/05/2021 8:34 PM EDTSexual OrientationStraight 07/29/2020 8:34 PM EDT Last Filed Vital Signs Vital SignReadingTime TakenCommentsBlood Uifuytxi219/8411 10:19 AM EST Jetnd517602/17/2025 10:19 AM QWFQcbrnbnwpbg09.7 ??C (98 ??F)02/17/2025 10:19 AM ESTRespiratory Rate--Oxygen Leapmpoeiy896%02/17/2025 10:19 AM ESTInhaled Oxygen Concentration--Butwjb66.1 kg (169 lb 15.6 oz)02/17/2025 10:19 AM ATZOqbqgt277.8 cm (5' 10 )02/17/2025 10:19 AM ESTBody Mass Index24.39104/19/2024 10:19 AM EST Plan of Treatment DateTypeDepartmentCare Team (Latest Contact Info)Rknnwifdsep74/23/2025 7:15 AM ESTHospital Encounter Admitting [address] [place] [address] Palmer Clifford MD [address] [place] [address] Chronic left shoulder pain [M25.512, G89.29], S/P shoulder replacement, left [Z96.612], Loose orthopedic implant, subsequent encounter [T84.039D], 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], Left shoulder pain, unspecified chronicity [M25.512], Loose orthopedic implant, initial encounter [T84.039A], 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]03/18/2025 7:15 AM EST - 03/18/2025 12:11 PM ESTSurgery Admitting [address] [place] [address] Palmer Clifford MD [address] [place] [address] REVISE TOTAL SHOULDER ARTHROPLASTY INCL ALLOGRAFT WHEN PERFORMED HUMERAL AND GLENOID YVDSMWWUQ99/05/2026 9:00 AM ESTOffice Visit Orthopaedics [address] [address] John Singh PA [address] [address] post op DOS 03/18NamePriorityAssociated DiagnosesDate/TimeREVISE TOTAL SHOULDER ARTHROPLASTY INCL ALLOGRAFT WHEN PERFORMED HUMERAL AND GLENOID COMPONENT Chronic left shoulder pain S/P shoulder replacement, left Loose orthopedic implant, subsequent encounter 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) Left shoulder pain, unspecified chronicity Loose orthopedic implant, initial encounter Instability of left shoulder joint 03/18/2025 7:15 AM ESTHealth MaintenanceDue DateLast DoneCommentsDiabetic Foot Exam05/26/1979Dilated Retinal Exam05/26/1979Urine Albumin:Creatinine Ratio 05/26/1979Annual PCP Team Chronic Disease Visit05/26/1987HIV Njrfmhtrj78/01/1988 Hepatitis C Eshjzzrhf95/01/1988LDL Frikoggbnol83/01/1988DTaP,Tdap,Td Vaccine (1 - Tdap)1988Hepatitis B Vaccine (1 of 3 - 19+ 3-dose series)1988 Pneumococcal Vaccine: 50+ (1 of 2 - PCV)1988CT Qugxxfmerjvm87/01/2015 Cologuard (FIT-DNA)05/25/20144187Mesqgbcatso56/01/2015Colorectal Cancer Screening 2014Fecal Occult Blood05/25/20141333Fjetimnptdpdl32/01/2015Shingrix Vaccine (1 of 2)05/26/2019Covid-19 Vaccine (3 - season)511/01/2021, 01/14/2021Influenza Vaccine (#1)11/25/20244724BmO5O14Prostate Cancer Screening Bxwgnrpsrl86 Goals GoalPatient Goal TypeAssociated ProblemsRecent ProgressPatient-Stated?Author Autogenerated Goal Care PlanAutogenerated ProblemNoBoard Vicente Dumont HUC Procedures Procedure NamePriorityDate/TimeAssociated DiagnosisCommentsCT SHOULDER WO IVCON FNLPVakgjsl17/24/2025 12:57 PM EST Chronic left shoulder pain S/P shoulder replacement, left Loose orthopedic implant, subsequent encounter 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) Left shoulder pain, unspecified chronicity Loose orthopedic implant, initial encounter Instability of left shoulder joint CONFIRM BLOOD VBZIHmpcmzm84/24/2025 12:04 PM EST Pre-op evaluation TYPE + SCREEN,30 WVZTcxcfmd72/24/2025 11:59 AM EST Pre-op evaluation HEMOGLOBIN X0ZImapsfa21/24/2025 11:59 AM EST Pre-op evaluation CBC + JWZWAlfdmbe68/24/2025 11:59 AM EST Pre-op evaluation BASIC METABOLIC OBCRWTpqkfkw24/24/2025 11:59 AM EST Chronic left shoulder pain S/P shoulder replacement, left Loose orthopedic implant, subsequent encounter 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 No significant change when compared to the prior CT. Distributing Clerk: PSCB ?? Transcribe Date/Time: Feb 17 2025 ??1:59P Dictated by : SURAJ GOODMAN MD This examination was interpreted and the report reviewed and electronically signed by: SURAJ GOODMAN MD on Feb 17 2025 ??2:05PM ??EST Narrative 02/17/2025 2:07 PM EST * * *Final Report* * * DATE OF EXAM: Feb 17 2025 12:57PM ?? [facility] ?? 0089 ??- ??CT SHOULDER WO IVCON LT ??/ PROCEDURE REASON: multiple diagnoses ? * * * * Physician Interpretation * * * * HISTORY: ??Chronic left shoulder pain Chronic left shoulder pain S/P shoulder replacement, left Loose orthopedic implant, subsequent encounter TECHNIQUE: CT SHOULDER WO IVCON LTwas performed in the axial plane with coronal and sagittal reformatted images. CT Dose-Length Product (DLP): ??691 mGy*cm. Orthopedic Hardware: Yes CT Dose Reduction Employed: Yes COMPARISON: 09/24/2024. RESULT: Total shoulder arthroplasty is again seen. ??There has not been any expansion or progressive lucencies adjacent to the glenoid component or humeral component compared to the prior study. ??All glenoid component anchor tracks remain cylindrical. Mild osteoarthritis of the AC joint. Acromiohumeral interval is low-normal. Rotator cuff muscle bulk is within normal limits. Procedure Note Provider, [facility] [place] - 02/17/2025 * * *Final Report* * * DATE OF EXAM: Feb 17 2025 12:57PM [facility] 0089 - CT SHOULDER WO IVCON LT / PROCEDURE REASON: multiple diagnoses * * * * Physician Interpretation * * * * HISTORY: Chronic left shoulder pain Chronic left shoulder pain S/P shoulder replacement, left Loose orthopedic implant, subsequentencounter TECHNIQUE: CT SHOULDER WO IVCON LTwas performed in the axial plane with coronal and sagittal reformatted images. CT Dose-Length Product (DLP): 691 mGy*cm. Orthopedic Hardware: Yes CT Dose Reduction Employed: Yes COMPARISON: 09/24/2024. RESULT: Total shoulder arthroplasty is again seen. There has not been any expansion or progressive lucencies adjacent to the glenoid component or humeral component compared to the prior study. All glenoid component anchor tracks remain cylindrical. Mild osteoarthritis of the AC joint. Acromiohumeral interval is low-normal. Rotator cuff muscle bulk is within normal limits. IMPRESSION IMPRESSION: Expected non-arthrographic postsurgical appearance. No significant change when compared to the prior CT. Distributing Clerk: BABAR Transcribe Date/Time: Feb 17 2025 1:59P Dictated by : SURAJ GOODMAN MD This examination was interpreted and the report reviewed and electronically signed by: SURAJ GOODMAN MD on Feb 17 2025 2:05PM EST Authorizing ProviderResult TypeResult StatusVahid Entezari MDCT-PAMAFinal Result * CONFIRM BLOOD TYPE (02/17/2025 12:04 PM EST)ComponentValueRef RangeTest Method Analysis TimePerformed AtPathologist JripabwcmVJAJ91/26/2025 8:30 AM EST [facility] LABRh(D)Cdsqitts68/26/2025 8:30 AM ESTT[facility] CITY H[facility] LABSpecimen (Source)Anatomical Location / LateralityCollection Method / VolumeCollection TimeReceived TimeBloodBLOOD SPECIMEN / UnknownVenipuncture / Hbjlcxh1102/17/2025 12:04 PM EST02/17/2025 12:04 PM EST Narrative Authorizing ProviderResult TypeResult StatusValerie Karli Rueda ACOUSTIC INTELLIGENCE SPECIALIST.CNPBLOOD BANK Final ResultPerforming OrganizationAddressCity/State/ZIP CodePhone Number [facility] [address] * TYPE AND SCREEN,30 DAY (02/17/2025 11:59 AM EST)ComponentValueRef RangeTest MethodAnalysis TimePerformed AtPathologist SdwurrwjaNCTB28/24/2025 5:54 PM EST [facility] LABRh(D)Zbnjbwtm07/24/2025 5:54 PM [facility] LABAntibody HwzxyxGwocvkyu70/24/2025 5:54 PM [facility] Specimen (Source)Anatomical Location / LateralityCollection Method / Volume Collection TimeReceived TimeBloodBLOOD SPECIMEN / UnknownVenipuncture / Oygtqit9602/17/2025 11:59 AM EST02/17/2025 11:59 AM EST Narrative Authorizing ProviderResult TypeResult StatusValerie Karli Barberx ACOUSTIC INTELLIGENCE SPECIALIST.CNPHCA MIDWE[facility] DIV[facility] Final ResultPerforming OrganizationAddressCity/State/ZIP CodePhone Number [facility] [address] [place] [address], * (ABNORMAL) HEMOGLOBIN A1C (02/17/2025 11:59 AM EST)ComponentValueRef RangeTest MethodAnalysis TimePerformed AtPathologist SignatureHemoglobin A1C7.5(H)4.3 - 5.6 %02/17/2025 5:57 PM [facility] LABComment:[place] Diabetes Association guidelines indicate that patients with HgbA1c in the range 5.7- 6.4% are at increased risk for development of diabetes, and intervention by lifestyle modification may be beneficial. HgbA1c greater or equal to 6.5% is considered diagnostic of diabetes.Estimated Average Mpahxkr132sy/dL02/17/2025 5:57 PM [facility] LABComment:eAG: (Estimated average glucose) is a calculated value from HgbA1c and is automobile rental representative of the average blood glucose level in the last 2-3 month period.Specimen (Source)Anatomical Location / LateralityCollection Method / VolumeCollection TimeReceived Time BloodBLOOD SPECIMEN / UnknownVenipuncture / Scnnbcs7702/17/2025 11:59 AM EST 02/17/2025 11:59 AM EST Narrative Authorizing ProviderResult TypeResult StatusValerie Karli Barberx ACOUSTIC INTELLIGENCE SPECIALIST.CNPLABORATORY Final ResultPerforming OrganizationAddressCity/State/ZIP CodePhone Number [facility] [address] [place] [address], * (ABNORMAL) COMPLETE BLOOD COUNT AND DIFFERENTIAL (02/17/2025 11:59 AM EST) ComponentValueRef RangeTest MethodAnalysis TimePerformed AtPathologist SignatureWBC7.123.70 - 11.00 k/uL02/17/2025 12:59 PM [facility] LABRBC5.404.20 - 6.00 m/uL02/17/2025 12:59 PM [facility] Aswabqrwri59.5(L)13.0 - 17.0 g/dL02/17/2025 12:59 PM [facility] JYZYyvkcyphbl89.439.0 - 51.0 %02/17/2025 12:59 PM [facility] MCV76.7(L)80.0 - 100.0 fL02/17/2025 12:59 PM [facility] LABMCH 23.1(L)26.0 - 34.0 pg02/17/2025 12:59 PM [facility] HHUXDDH45.2 (L)30.5 - 36.0 g/dL02/17/2025 12:59 PM [facility] LABRDW-CV16.5 (H)11.5 - 15.0 %02/17/2025 12:59 PM [facility] LABPlatelet Count 402557 - 400 k/uL02/17/2025 12:59 PM [facility] LABMPV9.39.0 - 12.7 fL02/17/2025 12:59 PM [facility] LABNeutrophils %75.2% 02/17/2025 12:59 PM [facility] LABAbs Neut5.351.45 - 7.50 k/uL 02/17/2025 12:59 PM [facility] LABLymphocytes %14.9%02/17/2025 12:59 PM [facility] LABAbs Lymph1.061.00 - 4.00 k/uL02/17/2025 12:59 PM [facility] LABMonocytes %7.7%02/17/2025 12:59 PM [facility] LABAbs Mono0.55<0.87 k/uL02/17/2025 12:59 PM [facility] LABEosinophils %1.4%02/17/2025 12:59 PM [facility] LABAbs Eosin0.10<0.46 k/uL02/17/2025 12:59 PM [facility] LABBasophils %0.4%02/17/2025 12:59 PM [facility] LABAbs Baso0.03<0.11 k/uL02/17/2025 12:59 PM [facility] LABImmature Granulocytes %0.4%02/17/2025 12:59 PM [facility] LABAbs Immature Gran0.03<0.10 k/uL02/17/2025 12:59 PM [facility] LABNRBC0.0/100 WBC02/17/2025 12:59 PM [facility] LABAbsolute nRBC<0.01<0.01 k/uL02/17/2025 12:59 PM [facility] LABDiff CpljWuyw27/24/2025 12:59 PM [facility] LABSpecimen (Source)Anatomical Location / LateralityCollection Method / VolumeCollection TimeReceived TimeBloodBLOOD SPECIMEN / UnknownVenipuncture / Iihvegl2902/17/2025 11:59 AM EST02/17/2025 11:59 AM EST Narrative Authorizing ProviderResult TypeResult StatusValerie L Rueda ACOUSTIC INTELLIGENCE SPECIALIST.CNPLABORATORY Final ResultPerforming OrganizationAddressCity/State/ZIP CodePhone Number [facility] [address] * (ABNORMAL) BASIC METABOLIC PANEL (02/17/2025 11:59 AM EST)ComponentValueRef RangeTest MethodAnalysis TimePerformed AtPathologist IwntbkaifDaazinz835(H)74 - 99 mg/dL02/17/2025 2:37 PM [facility] LABComment: The [place] Diabetes Association (ADA) provides guidance for cutoff values for fasting glucose andrandom glucose. The ADA defines fasting as no caloric intake for at least 8 hours. Fasting plasma glucose results between 100 to 125 mg/dL indicate increased risk for diabetes (prediabetes). Fasting plasma glucose results greater than or equal to 126 mg/dL meet the criteria for diagnosis of diabetes. In the absence of unequivocal hyperglycemia, results should be confirmed by repeat testing. In a patient with classic symptoms of hyperglycemia or hyperglycemic crisis, random plasma glucose results greater than or equal to 200 mg/dL meet the criteria for diagnosis of diabetes. Reference: Standards of Medical Care in Diabetes 2016, [place] Diabetes Association. Diabetes Care. 2016.39(Suppl 1). YLU054 - 24 mg/dL02/17/2025 2:37 PM [facility] LABCreatinine0.71 (L)0.73 - 1.22 mg/dL02/17/2025 2:37 PM [facility] XUHCgjhcw323411 - 144 mmol/L104/19/2024 2:37 PM [facility] LABPotassium4.63.7 - 5.1 mmol/L104/19/2024 2:37 PM [facility] ZUCJcwoptpv10403 - 107 mmol/L 02/17/2025 2:37 PM [facility] NURFZ06441 - 30 mmol/L104/19/2024 2:37 PM [facility] LABAnion Gap88 - 15 mmol/L104/19/2024 2:37 PM [facility] LABCalcium, Total9.58.5 - 10.2 mg/dL02/17/2025 2:37 PM [facility] LABEstimated Glomerular Filtration Licx535>=60 mL/min/1.73m 02/17/2025 2:37 PM [facility] LABComment:Estimated Glomerular Filtration Rate (eGFR) is calculated using the 2020 CKD-EPI creatinine equation. This equation utilizes serum creatinine, sex, and age as parameters. The creatinine assay has traceable calibration to isotope dilution-mass spectrometry. Refer to KDIGO guidelines for clinical interpretation. In patients with unstable renal function, e.g. those with acute kidney injury, the eGFRmay not accurately reflect actual GFR.Specimen (Source)Anatomical Location / LateralityCollection Method / VolumeCollection TimeReceived TimeBloodBLOOD SPECIMEN / UnknownVenipuncture / Hkflsfa7302/17/2025 11:59 AM EST02/17/2025 11:59 AM EST Narrative Authorizing ProviderResult TypeResult StatusVahicaryn Clifford MDLABORATORYFinal ResultPerforming OrganizationAddressCity/State/ZIP CodePhone Number [facility] [address] from Last 3 Months Additional Health Concerns Active ProblemsNoted DateDiagnosed DateAutogenerated Heeoixl9601/29/2025 Insurance Care Teams Team MemberRelationshipSpecialtyStart DateEnd Date Max Ojeda DO PCP - GeneralInternal Medicine05/25/20 Zen Tavera [address] [place] [address] Orthopedics09/30/24
--- OUTSIDE RECORDS SUMMARY | 2025-03-05 20:48 | XMS_ITS | Encounter Summary ---
Author Organization [facility] Address [address] [place] [address] Care Team Providers Care Drawer In Hand Name Role Phone Max Ojeda DO Primary Care Provider [phone] Zen Tavera Unavailable Source Comments In the event this information is protected by the Federal Confidentiality of Alcohol and Drug AbusePatient Records regulations: The Federal rules restrict any use of the information to criminally investigate or prosecute any alcohol or drug abuse patient.[facility] Encounter Details DateTypeDepartmentCare Team (Latest Contact Info)Srvvmziiylk77/28/2025Telephone Pre Anesthesia [address] [place] [address] Gloria Rueda, SYSTEMS MANAGEMENT CONSULTANT.PORTFOLIO STRATEGIST [address] [place], [place] [id number] Social History Tobacco UseTypesPacks/DayYears UsedDateSmoking Tobacco: NeverPassive Smoke Exposure: NeverSmokeless Tobacco: FormerChew, Snuff Comments:Used over 30 years ago Area Deprivation IndexAnswerDate RecordedNational Score (1-100), lower number is lower ujpl620810/28/2024State Score (1-10), lower number is lower oryy204 Data from: https://www.neighborhoodatlas.[facility]/. Last address used for ruaijfgcgot[address]10/28/2024Sex and Gender InformationValueDate RecordedSex Assigned at AhnrwYyey49/05/2021 8:34 PM EDTLegal IwaCali31/02/2012 8:45 AM ESTGender IrmltrvhJclz21/05/2021 8:34 PM EDTSexual OrientationStraight 07/29/2020 8:34 PM EDTdocumented as of this encounter Plan of Treatment DateTypeDepartmentCare Team (Latest Contact Info)Gtehrkavfsu23/23/2025 7:15 AM ESTHospital Encounter Admitting [address] [place] [address] Palmer Clifford MD [address] [place] [address] Chronic left shoulder pain [M25.512, G89.29], S/P shoulder replacement, left [Z96.612], Loose orthopedic implant, subsequent encounter [T84.039D], 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], Left shoulder pain, unspecified chronicity [M25.512], Loose orthopedic implant, initial encounter [T84.039A], 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]03/18/2025 7:15 AM EST - 03/18/2025 12:11 PM ESTSurgery Admitting [address] [place] [address] Palmer Clifford MD [address] [place] [address] REVISE TOTAL SHOULDER ARTHROPLASTY INCL ALLOGRAFT WHEN PERFORMED HUMERAL AND GLENOID DXOEXQPDD43/05/2026 9:00 AM ESTOffice Visit Orthopaedics [address] [address] John Singh PA [address] [address] post op DOS 03/18NamePriorityAssociated DiagnosesDate/TimeREVISE TOTAL SHOULDER [...] Autogenerated Goal Care PlanAutogenerated ProblemNoBoard Vicente Dumont HUCdocumented as of this encounter Visit Diagnoses Not on filedocumented in this encounter Additional Health Concerns Active ProblemsNoted DateDiagnosed DateAutogenerated Gvwstvg2901/29/2025documented as of this encounter Care Teams Team MemberRelationshipSpecialtyStart DateEnd Date Max Ojeda DO PCP - GeneralInternal Medicine05/25/20 Zen Tavera [facility] [place] [address] Orthopedics09/30/24documented as of this encounter
--- OUTSIDE RECORDS SUMMARY | 2025-03-05 20:49 | XMS_ITS | Clinical Summary ---
Author Organization [facility] Healthcare Address [address] [place] [address] Care Team Providers Care Utility Tender Carding Name Role Phone Max Ojeda Primary Care Provider [phone] Allergies No known active allergies Medications MedicationSigDispense QuantityRefillsLast FilledStart DateEnd DateStatus ALPRAZolam (Xanax) 0.25 MG tablet Take 0.25 mg by mouth every 8 (eight) hours if needed for qrpcptq4106/21/2022 Active atorvastatin (Lipitor) 80 MG tablet Take 80 mg by mouth at pxdkoeo9610/14/2022ctive omeprazole (PriLOSEC) [address] capsule 10/14/2022ctive [...] TAKE 1 TABLET BY MOUTH ONCE EVERY POWHOIC74/07/2025Active glimepiride (Amaryl) 1 MG tablet TAKE 1 TABLET BY MOUTH EVERY MORNING WITH ZBKPJIMKG63/07/2025Active FREESTYLE LITE test strip USE KFGFTFQV21/24/2025Active empagliflozin (Jardiance) 10 MG Indications:Type 2 diabetes mellitus without complication, without long-term current use of insulin (HCC)TAKE 1 TABLET (10 MG) BY MOUTH DAILY. 30 tablet 5Active Additional Information Patient taking differently:10 mg Oral Daily,(No times of day reported), Reported on 01/13/2025 fluorouracil (Efudex) 5 % cream Twice daily5Active Active Problems ProblemNoted DateDiagnosed DateTubular adenoma of colon12/18/2023Hyperlipidemia type II12/18/2023GERD with casindynwga63/23/2024GAD (generalized anxiety disorder)12/18/2023Type 2 diabetes mellitus without complication, without long- term current use of lwyssts1211/07/2023 Assessment & Plan (06/16/2024 4:59 PM EDT): [...] for his shoulder surgery as well. Peyronie's ugreqtg1608/03/2020D (erectile dysfunction) of organic origin 08/03/2020 Encounters DateTypeDepartmentCare BpdsMajphuifais76/20/2025 9:15 AM EDTOffice Visit [facility] [address] [place] [phone] Zen Tavera, Left wrist pain (Primary Dx)01/13/2025 8:05 AM EDTAncillary Procedure [facility] [address] [facility] [place] [phone] 01/13/20253097Ativbx11/13/2025Travelfrom Last 3 Months Immunizations ImmunizationAdministration DatesNext DuePfizer [...] on one occasion?Never03/18/2024HQ-2 AnswerDate RecordedPatient Health Questionnaire-2 Umuin22605/19/2023Sex and Gender InformationValueDate RecordedSex Assigned at WomseUnxk96/17/2023 2:59 PM EDT Legal EftWgaz8706/08/2022 7:48 PM EDTGender QxhkuskbRutv83/17/2023 2:59 PM EDT Sexual OrientationNot on file Last Filed Vital Signs Vital SignReadingTime TakenCommentsBlood Rdtckfja054/8403 9:41 AM EDT Sbsmx812006/14/2024 9:41 AM FMMXydfkngiuhr58.7 ??C (98.1 ??F)06/14/2024 9:41 AM EDTRespiratory Rate--Oxygen Ccbfgpckuh55%06/14/2024 9:41 AM EDTInhaled Oxygen Concentration--Klrfro71.4 kg (186 lb)11/04/2024 10:21 AM CYQQccyse439.3 cm (5' 9 )11/04/2024 10:21 AM EDTBody Mass Index27.47011/04/2024 10:21 AM EDT Plan of Treatment Not on file Procedures Procedure NamePriorityDate/TimeAssociated DiagnosisCommentsXR WRIST 3+ VIEWS HDSJOofxoxq85/20/2025 8:03 AM EDT Left wrist pain from [...] StatusZen Tavera DOIMG XR PROCEDURES Final Result from Last 3 Months Insurance * Guarantor: Alex Vasquez TypeRelation to PatientDate of BirthPhone Billing AddressPersonal/LlsydkYqty[birth year][address] [place] [id number] * Guarantor: Alex Vasquez TypeRelation to PatientDate of BirthPhone Billing AddressPersonal/IqamsdNzel[birth year][address] [place] [address] Care Teams Team MemberRelationshipSpecialtyStart DateEnd Date Max Ojeda, [address] [facility] [place] [phone] PCP - GeneralInternal Medicine08/20/24
--- OUTSIDE RECORDS SUMMARY | 2025-03-05 20:49 | XMS_ITS | Encounter Summary ---
Author Organization [facility] Address [facility] [place] [address] Care Team Providers Care Tmd Teacher Assistant Name Role Phone Rusty Max Pugh DO Primary Care Provider [phone] Zen Tavera Unavailable Source Comments In the event this information is protected by the Federal Confidentiality of Alcohol and Drug AbusePatient Records regulations: The Federal rules restrict any use of the information to criminally investigate or prosecute any alcohol or drug abuse patient.[facility] Reason for Visit * ReasonCommentspacc preop lab concerns- OR 03/18 Encounter Details DateTypeDepartmentCare Team (Latest Contact Info)Sqqysnibckh08/28/2025Telephone Pre Anesthesia [address] [place] [address] Gloria Rueda, COPY EDITOR.MANAGER BEVERAGE [address] [place] [address] pacc preop lab concerns- OR 03/18 Social History Tobacco UseTypesPacks/DayYears UsedDateSmoking Tobacco: NeverPassive Smoke Exposure: NeverSmokeless Tobacco: FormerChew, Snuff Comments:Used over 30 years ago Area Deprivation IndexAnswerDate RecordedNational Score (1-100), lower number is lower upmf253410/28/2024State Score (1-10), lower number is lower jkqp077 Data from: https://www.neighborhoodatlas.medicine.[facility].edu/. Last address used for omyzhsvxpqx[address]10/28/2024Sex and Gender InformationValueDate RecordedSex Assigned at UtoooDdly95/05/2021 8:34 PM EDTLegal UrvJrya13/02/2012 8:45 AM ESTGender VxtgxbcxBvtg25/05/2021 8:34 PM EDTSexual OrientationStraight 07/29/2020 8:34 PM EDTdocumented as of this encounter Miscellaneous Notes * Telephone Encounter - Joshua Cazares LPN - 02/21/2025 3:13 PM EST DISCHARGE SUMMARY AND ANESTHESIA RECORD DOCUMENTS SCANNED IN [place]. JOSHUA CAZARES LPN * Telephone Encounter - Gloria Rueda APRN.CNP - 02/21/2025 9:02 AM EST [place], I saw this patient in [facility] 02/17/2025 for Left - REVISE TOTAL SHOULDER ARTHROPLASTY INCL ALLOGRAFT WHEN PERFORMED HUMERAL AND GLENOID COMPONENT with Dr Palmer Clifford on 03/18/2025. I wanted to inform you of the results of preoperative labs from 02/17/25 Hgb A1c 7.5. Home blood glucose readings in the morning range from 138-158 mg/dL. Most recent A1c per patient, January 30 was 7.7%, improved from 8.2% in April Managed on Jardiance 10mg every day, Amaryl 2mg every day, Metformin 100mg BID, Janumet BID. Please let me know if you have concerns proceeding with case. 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], Left shoulder pain, unspecified chronicity [M25.512], Loose orthopedic implant, initial encounter [T84.039A], 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]03/18/2025 7:15 AM EST - 03/18/2025 12:11 PM ESTSurgery Admitting [facility] [place] [address] Palmer Clifford MD [address] [facility] [place] [address] REVISE TOTAL SHOULDER ARTHROPLASTY INCL ALLOGRAFT WHEN PERFORMED HUMERAL AND GLENOID ZUAUIPJJM39/05/2026 9:00 AM ESTOffice Visit Orthopaedics [address] [address] [place] [address] [address] post op DOS 03/18NamePriorityAssociated DiagnosesDate/TimeREVISE TOTAL SHOULDER [...] Additional Health Concerns Active ProblemsNoted DateDiagnosed DateAutogenerated Pqmfiho0001/29/2025documented as of this encounter Care Teams Team MemberRelationshipSpecialtyStart DateEnd Date Max Ojeda DO PCP - GeneralInternal Medicine05/25/20 Zen Tavrea [address] [place] [address] Orthopedics09/30/24documented as of this encounter
--- OUTSIDE RECORDS SUMMARY | 2025-03-05 20:54 | XMS_ITS | CCD ---
Author Organization [facility] Care Team Providers Care Delivery Person Name Role Phone Max Tucker Unavailable GARRETT, DR SANTANA Primary Care Unavailable ELAINA, DR STEPHY Morgan Consulting Unavailable SHAIKH Aishwarya WNOG Attending Unavailable SHAIKH Aishwarya WONG Admitting Unavailable HAY ., DR BRYANT Consulting Unavailable ALFONSO BELL Consulting Unavailable SHAIKH Aishwarya WONG Consulting CHAVA Coppola Consulting Unavailable JENNIFER MONET Consulting Unavailable GARRETT, DR SANTANA Admitting Unavailable GARRETT, DR SANTANA Attending Unavailable GARRETT, DR SANTANA Primary Care Unavailable GARRETT, DR SANTANA Consulting Unavailable MAX TUCKER Primary Care Physician DO Max Tucker Primary Care Provider MD Rajan Moreland Attending Provider Rajan Moreland Attending Unavailable Rajan Moreland Admeverett Unavailable Max Tucker Primary Care Unavailable Max Tucker MD Primary Care Provider Brown Zen A Admitting Unavailable Brown, Zen A Attending Unavailable Brown, Zen A Referring Unavailable Brown, DO Zen A Referring Unavailable Brown, DO Zen A Attending Unavailable Liang, DO Zen A Admitting Unavailable Brown, DO Zen A Referring Unavailable Brown, DO Zen A Attending Unavailable Brown, DO Zen A Admitting Unavailable Paola Lundberg Unavailable Unavailable Joe Denton Consulting Unavailable MARIA R ROMANO Attending Unavailable Joe Denton Consulting Unavailable DO Joe Denton Consulting UnavailJoe Gonzalez Attending Unavailable Liang, Zen A Attending Unavailable Brown, Zen A Referring Unavailable Brown, Zen A Admitting Unavailable Brown, DO Zen A Admitting Unavailable Liang, DO Zen A Referring Unavailable Joe Denton Consulting Unavailable Joe Denton Attending Unavailable Joe Denton Consulting Unavailable DO Joe Denton Consulting Unavailabl e Max Tucker DO Primary Care Provider Brown, DO Zen A Referring Unavailable Brown, DO Zen A Attending Unavailable Brown, DO Zen A Admitting Unavailable Brown, DO Zen A Referring Unavailable Brown, DO Zen A Attending Unavailable Brown, DO Zen A Admitting Unavailable Ball Max MIJARES Primary Care Provider [phone] Max Tucker DO Attending Provider Max Tucker DO Primary Care Provider Brown, Zen A Unavailable Brown, Zen A Admitting Unavailable Brown, Zen A Attending Unavailable Brown, Zen A Referring Unavailable Ball Max MIJARES Primary Care Provider [phone] Max Tucker DO Attending Provider [phone] BROWN, ZEN A Attending Unavailable BROWN, ZEN A Referring Unavailable BROWN, ZEN A Referring Unavailable BROWN, ZEN A Attending Unavailable ROSE DICK Attending Unavailable BROWN, ZEN A Referring Unavailable BROWN, ZEN A Attending Unavailable BROWN, ZEN A Attending Unavailable BROWN, ZEN A Referring Unavailable ROSI LITTLE Attending Unavailable BROWN, ZEN A Referring Unavailable HILLSROSI D Referring Unavailable BROWN, ZEN A Attending Unavailable BROWN, ZEN A Attending Unavailable BROWN, ZEN A Referring Unavailable BROWN, ZEN A Attending Unavailable PETROSE JASSO Attending Unavailable Ball Max MIJARES Primary Care Provider MAX TUCKER Primary Care Unavailable ENTEZARI, BRIELLE Referring Unavailable ENTEZARI, BRIELLE Attending Unavailable BROWN, ZEN A Referring Unavailable MAX TUCKER Primary Care Unavailable ENTEZARI, BRIELLE Attending Unavailable MAX TUCKER Primary Care Unavailable ENTEZARI, BRIELLE Referring Unavailable MAX TUCKER Primary Care Unavailable ENTEZARI, BRIELLE Attending Unavailable Medications Current Medications MedicationDrug Class(es)DatesSig (Normalized)Sig (Original)acetaminophen 500 mg oral tablet (20 sources)take 2 tablets by mouth in the morningacetaminophen (Tylenol) 500 MG tablet Take 1,000 mg by mouth in the morning and 1,000 mg before bedtime. Active acetaminophen 325 mg / oxyCODONE hydrochloride 5 mg oral tablet (7 sources)Opioid AgonistStart: 05-22-2024 End: 15-02-9588Sqzclbak 5 mg-325 mg oral tablet See Instructions, 40 tab(s), Refill(s) 0, 1-2 tab(s) Oral q4hr, [facility]/pharmacy #[id number], 176, cm, 04/30/24 14:00:00 EST, Height/Length Dosing, 84.1, kg, 04/30/24 14:00:00 EST, Weight Dosing Start Date: 05/22/24 Status: Ordered Quantity: 40.0 Unit: tab(s) Repeat number: 1Start: 88-24-0833Akrijvla 5 mg-325 mg oral tablet See Instructions, 40 tab(s), Refill(s) 0, 1-2 tab(s) Oral q4hr, [facility]/pharmacy #[id number], 176.7, cm, 03/23/23 9:11:00 EST, Height/Length Dosing, 83.7, kg, 03/23/23 9:11:00 EST, Weight Dosing Start Date: 04/07/23 Status: OrderedALPRAZolam 0.25 mg oral tablet (20 sources)BenzodiazepineStart: 04-16-2019 End: 28-04-8452oesz 1 tablet by mouth every eight hours as needed for anxiety ALPRAZolam (Xanax) 0.25 MG tablet Take 0.25 mg by mouth every 8 (eight) hours if needed for ipyksvy4806/21/2022 ActiveStart: 04-16-2019 End: 14-22-2390ujpz 1 tablet by mouth once daily as needed for anxietyAlprazolam 0.25 mg tablet Active 0.25 MG PO Daily as needed for anxiety December 03, 2024 7:59pm Complies with drug therapyatorvastatin 80 mg oral tablet (20 sources)HMG-CoA Reductase InhibitorStart: 09-11-2023 End: 09-39-2867mllm 1 tablet by mouth once daily in the eveningAtorvastatin 80 mg tablet Active 0 .ROUTE .COMPLEX June 09, 2024 10:47am TAKE 1 TABLET BY MOUTH EVERY EVENING Complies with drug therapyStart: 03-19-2019 End: 80-18-9924fbvl 1 tablet by mouth at bedtimeatorvastatin (Lipitor) 80 MG tablet Take 80 mg by mouth at bedtime 10/14/2022 Activetake 1 tablet by mouth every twenty-four hoursLipitor 10 MG 1 tablet Orally Once a day Activebacitracin zinc 0.4 unt/mg / hydrocortisone acetate 0.01 mg/mg / neomycin sulfate 0.0035 mg/mg / polymyxin b sulfate 10 unt/mg ophthalmic ointment (4 sources)Aminoglycoside Antibacterial, Polymyxin-class Antibacterial, CorticosteroidStart: 41-44-0832ezwbkncn-vbzzaznfbp-vqdoltbsf-dcqjhvbbaznfci (Cortisporin) 1 % ophthalmic ointment Apply to affected eye(s) 05/23/2024 Active Start: 63-39-6307vazufsccac/HC/neomycin/polymyxin B Opth Oint 1 madelyn, OPTH, TID, 3.5 gm, Refill(s) 0, [facility] #[id number], 177.8, cm, 05/22/24 17:57:00 EST, Height/Length Dosing, 85.4, kg, 05/22/24 17:57:00 EST, WeightDosing Start Date: 05/23/24 Status: Ordered Quantity: 3.5 Unit: g Repeat number: 1Start: 05-23-2024 bacitracin/HC/neomycin/polymyxin B Opth Oint 1 madelyn, OPTH, TID, 3.5 gm, Refill(s) 0, [facility]/pharmacy #[id number], 177.8, cm, 05/22/24 17:57:00 EST, Height/Length Dosing, 85.4, kg, 05/22/24 17:57:00 EST, WeightDosing Start Date: 05/23/24 Status: OrderedBlood-Glucose Meter (Onetouch Ultra2 Meter) [facility] (5 sources)Start: 88-93-7876Bxuwg-Glucose Meter (Onetouch Ultra2 Meter) [facility] Active 0 .ROUTE .MEDSUPPLY July 20, 2023 12:00am Use to test home BS qd12 hr buPROPion hydrochloride 150 mg extended release oral tablet (17 sources)AminoketoneStart: 52-21-6915fbjp 1 tablet by mouth once daily in the morningbuPROPion SR (Wellbutrin SR) 150 MG 12 hr tablet TAKE 1 TABLET BY MOUTH ONCE EVERY MORNING 08/31/2024 Activecelecoxib 200 mg oral capsule (20 sources)Nonsteroidal Anti-inflammatory DrugStart: 20-66-1470HfspXTCL 200 MG capsule Take 200 mg by mouth 05/22/2024 Activecitalopram 40 mg oral tablet (20 sources)Serotonin Reuptake InhibitorStart: 64-93-4306vato 1 tablet by mouth once dailyCitalopram 40 mg tablet Active 0 .ROUTE .COMPLEX September 17, 2024 6:51am TAKE 1 TABLET BY MOUTH EVERY DAY Complies with drug therapyStart: 08-13-2024 End: 34-63-7949Mkbjcwobcj 40 mg tablet Discontinued 20 MG PO Daily 02 14August 13, 2024 11:49am September 17, 2024 6:52amStart: 09-29-2023 End: 90-28-4871gufr 1 tablet by mouth once dailyCitalopram 40 mg tablet Discontinued 0 .ROUTE .COMPLEX March 22, 2024 8:15am August 13, 2024 11:50am TAKE 1 TABLET BY MOUTH EVERY DAYStart: 09-13-2023 End: 94-74-6735asuq 1 tablet by mouth once dailycitalopram (CeleXA) 40 MG tablet Take 40 mg by mouth Daily 09/29/2023 ActiveStart: 16-92-7411kbwqwmmmdq (CELEXA) 20 mg tablet 07/31/2019 Activedocusate sodium 100 mg oral capsule (20 sources)Start: 09-98-6921HAD Stool Softener 100 MG capsule 05/22/2024 Active doxycycline hyclate 100 mg oral capsule (8 sources)Tetracycline-class DrugStart: 89-77-1247gsry 1 capsule by mouth twice dailyDoxycycline Hyclate 100 MG 1 capsule Orally twice daily for 7 days Jun, Activeempagliflozin 25 mg oral tablet (20 sources)Sodium-Glucose Cotransporter 2 InhibitorStart: 49-47-7441ydpc 1 tablet by mouth once daily in the morningEmpagliflozin 25 mg tablet Active 25 MG PO Every morning October 02, 2024 10:37am Complies withdrug therapyStart: 06-14-2024 End: 39-48-3193foxd 1 tablet by mouth once dailyempagliflozin (Jardiance) 10 MG Indications: Type 2 diabetes mellitus without complication, withoutlong-term current use of insulin (HCC) TAKE 1 TABLET (10 MG) BY MOUTH DAILY. 30 tablet 3 06/20/2025Activefluorouracil 50 mg/ml topical cream (3 sources)Nucleoside Metabolic InhibitorStart: 24-74-9400shptbjcuyemq (Efudex) 5 % cream Twice daily 12/25/2024 ActiveFREESTYLE LITE METER monitoring kit (2 sources)Start: 13-48-7915PWTXRWEKC LITE METER monitoring kit USE TO TEST HOME BLOOD SUGAR ONCE EVERY DAY 04/20/2020 Activegabapentin 300 mg oral capsule (1 source)Anti-epileptic AgentStart: 05-22-2024 End: 99-93-4368ltjx 1 capsule by mouth three times dailygabapentin 300 mg Cap 300 mg = 1 cap(s), Oral, TID, X 14 day(s), # 42 cap(s), Refills(s) 0, Pharmacy: [facility]/pharmacy #[id number], 176, cm, 04/30/24 14:00:00 EST, Height/Length Dosing, 84.1, kg, 04/30/24 14:00:00 EST, Weight Dosing Start Date: 05/22/24 Stop Date: 06/05/24 Status: Orderedglimepiride 2 mg oral tablet (20 sources)SulfonylureaStart: 44-56-2496hbox 1 tablet by mouth once daily at breakfastGlimepiride 2 mg tablet Active 2 MG PO Every morning October 02, 2024 10:37am administer with breakfast Complies with drug therapyStart: 08-13-2024 End: 13-27-2637chnd 1 tablet by mouth once daily in the morningglimepiride (Amaryl) 1 MG tablet TAKE 1 TABLET BY MOUTH EVERY MORNING WITH BREAKFAST 08/31/2024 ActiveStart: 09-15-2023 End: 16-95-3156uopz 1 tablet by mouth once dailyGlimepiride 4 mg tablet Discontinued 4 MG PO Daily September 15, 2023 5:08pm July 18, 2024 10:48am Start: 07-06-2023 End: 70-12-2953jnus 3 mg by mouth once dailyGlimepiride 2 mg tablet Discontinued 3 MG PO Daily July 19, 2023 6:50am September 15, 2023 5:09pmStart: 07-06-2023 End: 39-99-1989mocz 3 mg by mouth once dailyGlimepiride Active 3 MG PO Daily July 19, 2023 6:50amStart: 04-20-2020 End: 79-07-8079jbtg 1 tablet by mouth once daily at breakfastGlimepiride 2 mg tablet Active 2 MG PO Every morning October 02, 2024 10:37am administer with breakfast Complies with drug therapyStart: 77-21-3551zagt 1.5 mg by mouth once dailyglimepiride 1 mg Tab 1.5 mg = 1.5 tab(s), Oral, Daily, Refills(s) 0, High blood sugar Start Date: 07/31/19 Status: Ordered Repeat number: 1take 1.5 tablets by mouth every twenty-four hoursGlimepiride 2 MG 1.5 tablet with breakfast or the first main meal of the day Orally Once a day Activehydrocortisone acetate 25 mg rectal suppository (20 sources)CorticosteroidStart: 35-33-5017Zrguqilhhovxpx Acetate 25 mg suppository Active 25 MG WA Twice daily December 08, 2023 12:00am Complies with drug therapyStart: 07-06-2023 End: 86-80-4831Tjominzepqduhq 2.5 % cream Discontinued 1 APPLIC TOPICAL Daily July 06, 2023 12:00am September 13, 2023 2:15pmHydrocortisone 2.5 % 1 application Externally Once a day ActiveHydrocortisone Acetate 25 MG 1 suppository Rectal Once a day ActiveHydrocortisone 2.5 % 1 application Externally Once a day ActiveHydrocortisone Acetate 25 mg suppository (1 source)Start: 62-29-3213Gpwvdkaohxrbge Acetate 25 mg suppository Active 25 MG WA Twice daily December 08, 2023 12:00amibuprofen 600 mg oral tablet (20 sources)Nonsteroidal Anti-inflammatory DrugStart: 23-32-4963qblx 1 tablet by mouth every six hours as needed for painibuprofen 600 mg Tab 600 mg = 1 tab(s), Oral, q6hr, PRN as needed for pain, with food or milk, # 50tab(s), Refills(s) 0, Pharmacy: [facility]/pharmacy #[id number], 176.7, cm, 03/23/23 9:11:00 EST, Height/Length D osing, 83.7, kg, 03/23/23 9:11:00 EST, Weight Dosing Start Date: 04/07/23 Status: Orderedtake 1 tablet by mouth every twenty-four hours as neededibuprofen 600 MG tablet Take 600 mg by mouth Daily as needed Activeketorolac tromethamine 10 mg oral tablet (1 source)Nonsteroidal Anti-inflammatory Drug, Cyclooxygenase InhibitorStart: 05-22-2024 End: 20-81-8864dija 1 tablet by mouth every eight hoursketorolac 10 mg Tab 10 mg = 1 tab(s), Oral, q8hr, X 3 day(s), # 9 tab(s), Refills(s) 0, Pharmacy: [id number], 176, cm, 04/30/24 14:00:00 EST, Height/Length Dosing, 84.1, kg, 04/30/24 14:00:00EST, Weight Dosing Start Date: 05/22/24 Stop Date: 05/25/24 Status: OrderedmetFORMIN hydrochloride 1000 mg oral tablet (2 sources)BiguanideStart: 33-47-3165dkgBWSRIK (GLUCOPHAGE) 1,000 mg tablet 04/18/2020 Activeomeprazole 40 mg delayed release oral capsule (20 sources)Proton Pump InhibitorStart: 11-17-2023 End: 27-42-1300Yjbhhjuvrv 40 mg capsule,delayed release(DR/EC) Active 0 .ROUTE .COMPLEX August 08, 2024 1:32pm TAKE 1 CAPSULE ON EMPTY STOMACH FOLLOWED IN 30 MINUTES BY BKFST Complies with drug therapyStart: 20-73-4428fpftqxkjdt (PriLOSEC) [address] capsule 10/14/2022 ActiveStart: 07-31-2019 End: 69-10-4536tjjn 1 capsule by mouth once dailyOmeprazole 40 mg capsule,delayed release(DR/EC) Discontinued 40 MG PO Daily July 06, 2023 12:00am November 17, 2023 10:20amsildenafil 100 mg oral tablet (7 sources)Phosphodiesterase 5 InhibitorStart: 70-34-7503plkkatfxgn (VIAGRA) 100 mg tablet Take 100 mg by mouth. 07/31/2019 ActiveSuzetrigine (Journavx) 50 MG tablet (6 sources)Start: 11-04-2024 End: 32-82-7542qpfp 1 tablet by mouth every twelve hoursSuzetrigine [...] 30 tablet 11/04/2024 11/18/2024 ActiveStart: 09-26-2024 End: 58-78-5960hhmf 1 tablet by mouth every twelve hoursSuzetrigine [...] 30 tablet 09/26/2024 10/10/2024 ActiveStart: 07-04-2024 End: 12-25-0934asoc 1 tablet by mouth every twelve hoursSuzetrigine [...] oral tablet (6 sources)Opioid AgonistStart: 10-24-2023 End: 97-37-5870ktvt 1 tablet by mouth in the morningtraMADol (Ultram) 50 MG tablet Take 50 mg by mouth in the morning and 50 mg before bedtime. 10/24/2023 03/18/2024 Discontinued (Therapy completed)triamcinolone acetonide 0.001 mg/mg topical ointment (20 sources)CorticosteroidStart: 19-97-8682oetuoypdcfcyd (Kenalog) 0.1 % ointment 05/09/2024 ActiveStart: 42-14-8232bkbfddptrusov (Kenalog) 0.1 % ointment APPLY TO AFFECTED AREA ONCE A DAY NEEDED FOR ITCHING 05/09/2024 ActiveStart: 50-02-9844Ckbkiochxygcc Acetonide 0.1 % ointment Active 1 APPLIC TOPICAL Daily as needed for itching 80 March 05, 2024 1:00am Complies with drug therapyStart: 92-90-4791Iopmctt-40 Nov, 60 mg Completed/Discontinued Medications MedicationDrug Class(es)DatesSig (Normalized)Sig (Original)[id number] 200 actuat albuterol 0.09 mg/actuat metered dose inhaler (20 sources)beta2-Adrenergic AgonistStart: 07-06-2023 End: 49-80-6140lgns 1 puff(s) by inhalation every four hours as neededAlbuterol Sulfate 90 mcg/actuation HFA aerosol inhaler Discontinued 2 PUFF INHALATION Every 4 hoursas needed July 06, 2023 12:00am September 13, 2023 2:14pmStart: 25-15-9010kmyz 2 puff(s) by inhalation every four hours as neededStart: 52-61-3034dfim 2 puff(s) by inhalation every four hours as neededAlbuterol Sulfate HFA 108 (90 Base) MCG/ACT 2 puffs as needed Inhalation every 4 hrs for 30 days 2019 Not-Taking/PRNcephalexin 500 mg oral capsule (3 sources)Cephalosporin AntibacterialStart: 09-26-2024 End: 00-27-7563pspr 4 capsules by mouth once at mealtimecephalexin (Keflex) 500 MG capsule Indications: Status post total shoulder replacement, left Take 4 capsules (2,000 mg) by mouth 1 time for 1 dose Take 30-60 mins before dental appointment with food 4 capsule 3 09/26/2024 09/26/2024 ExpiredStart: 05-22-2024 End: 35-71-5417zjxp 1 capsule by mouth every eight hoursKeflex [...] 60 mg oraltablet (14 sources)alpha-Adrenergic Agonist, Uncompetitive D-qjutot-Z-aspartate Receptor Antagonist, Sigma-1 AgonistStart: 16-74-4903Nkdivmu DM 60-15-400 MG 1/2 to 1 tablet Orally every 6-8 hours as needed for 8 days Apr, Not -Taking/PRNetodolac 500 mg oral tablet (20 sources)Nonsteroidal Anti-inflammatory DrugStart: 12-22-2024 End: 10-56-9895pykg 1 tablet by mouth twice dailyEtodolac 500 mg tablet Discontinued 0 .ROUTE .COMPLEX December 22, 2024 8:00am December 25, 2024 10:14am TAKE 1 TABLET BY MOUTH TWICE A DAY FOR 21 DAYSStart: 05-10-2024 End: 96-43-4881ryie 1 tablet by mouth twice dailyEtodolac 500 mg tablet Discontinued 0 .ROUTE .COMPLEX May 10, 2024 2:12pm August 13, 2024 1 1:53am TAKE 1 TABLET BY MOUTH TWICE A DAYStart: 03-05-2024 End: 28-34-8542wpcj 1 tablet by mouth in the morningetodolac (Lodine) 500 MG tablet Take 500 mg by mouth in the morning and 500 mg before bedtime. 03/05/2024 ActiveHumalog (1 source)Insulin AnalogStart: 05-23-2024 End: 52-56-0744ExtfJUY Sliding Scale 0-10 Unit(s), Injection-Insulin, SubCutaneous, Start date 05/23/24 7:30:00 AM EST Start Date: 05/23/24 Stop Date: 05/23/24 Status: CompletedmetFORMIN hydrochloride 1000 mg / SITagliptin 50 mg oral tablet (20 sources)Biguanide, Dipeptidyl Peptidase 4 InhibitorStart: 08-16-2023 End: 08-96-7627flxw 1 tablet by mouth twice daily at mealtimeSitagliptin Phos- Metformin (Marumet) 50-1,000 mg tablet Discontinued 0 .ROUTE .COMPLEX 60 March 05, 2024 2:24pm August 14, 2024 1:14pm TAKE 1 TABLET BY MOUTH TWICE A DAY WITH MEALS FOR 30 DAYSStart: 37-22-7221amgk 1 tablet by mouth in the morning Janumet 50-1000 MG tablet Take 1 tablet by mouth in the morning and 1 tablet in the evening. Take with meals. 07/07/2022 ActiveStart: 07-31-2019 End: 53-10-5050eugq 1 tablet by mouth twice dailySitagliptin Phos-Metformin (Marumet) 50-1,000 mg tablet Discontinued 1 TAB PO Twice daily July 06, 2023 12:00am August 16, 2023 8:35amStart: 67-67-7014sygn 50-1000 tablets by mouth once SITagliptin-metFORMIN (MARUMET) 50-1,000 mg per tablet Take by mouth. 07/31/2019 Activetake 1 tablet by mouth every twelve hoursJanumet 50-500 MG 1 tablet with meals Orally Twice a day ActivemethylPREDNISolone 4 mg oral tablet (14 sources)CorticosteroidStart: 29-71-3484Ebcrpr 4 MG as directed Orally for 6 days Apr, Not-Taking/PRNoseltamivir 75 mg oral capsule (14 sources)Neuraminidase InhibitorStart: 52-67-2370htcv 1 capsule by mouth every twelve hoursTamiflu 75 MG 1 capsule Orally Twice a day for 5 day(s) Apr, Not-Taking/PRN Problems Active Problems Problem ClassificationProblemDateDocumented DateEpisodic/ChronicAbdominal pain (15 sources)Acute abdominal pain; Translations: [Left lower quadrant pain] 80-66-5169QbgutcawEwivbgt disorders (20 sources)Acute stress disorder; Translations: [Acute stress reaction]Onset: 83-57-1877CazfwiaJlxoasspyi and other anemia (5 sources)Anemia; Translations: [Anemia, unspecified]09-08-7518RwiefoytIafowqvc mellitus with complications (20 sources)Hyperglycemia due to type 2 diabetes mellitus; Translations: [Type 2 diabetes mellitus with hyperglycemia]Onset: 64-10-2441VayupzcDpfsmony mellitus without complication (20 sources)Diabetes mellitus; Translations: [Type 2 diabetes mellitus well controlled]Onset: 972688-57-0117AntmhgdUeqxpzvsb of lipid metabolism (20 sources)Mixed hyperlipidemia; Translations: [Mixed hyperlipidemia]Onset: 16-72-9320EpfgqcsA Codes: Adverse effects of medical drugs (2 sources)Adverse effect of glucocorticoids and synthetic analogues, initial encounter; Translations: [ADVRS EFF GLUCOCORT SYN ANALOG INIT]Onset: 06-22-2022 EpisodicEsophageal disorders (20 sources)Gastro-esophageal reflux disease with esophagitis; Translations: [Gastroesophageal reflux disease with esophagitis without hemorrhage]Onset: 100667-59-7703UsmquwqPfvfaonpt hypertension (15 sources)Essential hypertension; Translations: [Essential (primary) hypertension]ChronicGastrointestinal hemorrhage (5 sources)Rectal cjmrnjmzbu77-96-0412RuevfnhtCqdujful; including migraine (3 sources)Headache; including migraine; Translations: [HEADACHE UNSPECIFIED] Onset: 35-69-2451Vooyyndqcvz (14 sources)External hemorrhoids; Translations: [Residual hemorrhoidal skin tags]EpisodicHypertension with complications and secondary hypertension (1 source)Hypertensive urgency; Translations: [HYPERTENSIVE URGENCY]Onset: 21-90-5649PdewvjdVhozfgzdnaktn and screening for infectious disease (8 sources)Anti-nuclear factor positive; Translations: [Other specified abnormal immunological findings in serum]Onset: 700351-80-9576Vzkrivod Inflammation; infection of eye (except that caused by tuberculosis or sexually transmitteddisease) (1 source)Blepharitis; Translations: [Unspecified blepharitis unspecified eye, unspecified eyelid]Onset: 25-77-2703XyzsfdtlArzi disorders (7 sources)Major depressive disorder, single episode, unspecified; Translations: [Major depressive disorder]Onset: 722054-49-8255KomputeDwwcuoqxzdvpcj (9 sources)Primary osteoarthritis, left shoulder; Translations: [Arthropathy, unspecified, shoulder region]89-14-0615UwruemnUnecl acquired deformities (14 sources)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; Translations: [Contracture, right ankle]ChronicOther aftercare (1 source)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; Translations: [OTH TAP BUILDER CURRENT DRUG THERAPY]Onset: 64-77-1167CiciknefAyqkq bone disease and musculoskeletal deformities (3 sources)Idiopathic aseptic necrosis of left shoulder; Translations: [Aseptic necrosis of bone, other]Onset: 807322-62-1885UovawjgVnhmu circulatory disease (1 source)Elevated blood-pressure reading, without diagnosis of hypertension EpisodicOther connective tissue disease (12 sources)History of operative procedure on shoulder; Translations: [Presence of left artificial shoulder joint]06-29-9551PbxyvknLbiie connective tissue disease (3 sources)History of reverse prosthetic total arthroplasty of left shoulder; Translations: [Presence of left artificial shoulder joint]26-80-8690UccsgrbXwzyq connective tissue disease (2 sources)Presence of left artificial shoulder joint; Translations: [Shoulder joint replacement]Onset: 833820-63-1297WuptpftPapzv connective tissue disease (4 sources)History of left shoulder arthroplasty; Translations: [Presence of left artificial shoulder joint]Onset: 064461-13-9511KkrotreFydxp connective tissue disease (14 sources)Pain in limb; Translations: [Pain in right foot]EpisodicOther connective tissue disease (14 sources)Plantar fascial fibromatosis; Translations: [Plantar fascial fibromatosis]EpisodicOther connective tissue disease (2 sources)Shoulder girdle weakness; Translations: [Other symptoms and signs involving the musculoskeletal system]73-40-6911KbuotufgYovvl connective tissue disease (2 sources)Other symptoms and signs involving the musculoskeletal system; Translations: [Other symptoms involving nervous and musculoskeletal systems] 00-34-0364McccoohlDqgbu lower respiratory disease (2 sources)Nodule of lung; Translations: [Solitary pulmonary nodule]Episodic Other male genital disorders (20 sources)Induratio penis plastica; Translations: [Induration penis plastica] Onset: 361621-82-4942DelxsghRljfd male genital disorders (14 sources)Impotence of organic origin; Translations: [Erectile dysfunction due to arterial insufficiency]ChronicOther male genital disorders (5 sources)Erectile dysfunction co-occurrent and due to arterial insufficiency 17-13-4840UyccewwNvtrz male genital disorders (20 sources)Secondary erectile dysfunction; Translations: [Male erectile dysfunction, unspecified]Onset: 740500-45-5454ZilmybkYuhbg nervous system disorders (14 sources)Paresthesia; Translations: [Paresthesia of skin]EpisodicOther nervous system disorders (1 source)Drug-induced myopathy; Translations: [Drug-induced myopathy]Onset: 52-36-5457NoeepzlcQwtjx non-traumatic joint disorders (5 sources)Shoulder pain; Translations: [Pain in unspecified shoulder]09-13-2023 EpisodicOther non-traumatic joint disorders (9 sources)Pain of left wrist; Translations: [Pain in left wrist]07-18-2024 EpisodicOther non-traumatic joint disorders (3 sources)Instability of left shoulder joint; Translations: [Other instability, left shoulder]Onset: 878192-26-0921BgbvcqvcWgoox nutritional; endocrine; and metabolic disorders (1 source)OverweightEpisodicOther nutritional; endocrine; and metabolic disorders (5 sources)Body mass index 25-29 - cnoshrgipb60-36-0101AnyetqewEubwl nutritional; endocrine; and metabolic disorders (4 sources)Intentional weight bsrc23-48-6507LayguotrFuutb screening for suspected conditions (not mental disorders or infectious disease) (20 sources)Blood chemistry abnormal; Translations: [Other specified abnormal findings of blood chemistry]Onset: 30-46-7022KceouddlIhlwsuc on above:PSA: 1.12 - 02/2023, 1.09 - [...] unclassified (2 sources)History of operative procedure on volspbrm07-75-0635FxnakncfOxivhoi and strains (2 sources)Strain of unspecified muscle(s) and tendon(s) at lower leg level, left leg, initial encounter; Translations: [Strain of muscle(s) and tendon(s) of the rotator cuff of left shoulder, initial encounter]EpisodicUnclassified (1 source)CONTACT W/AND (SUSP) EXPOS COVID-19; Translations: [CONTACT W/AND (SUSP) EXPOS COVID-19]Onset: 29-94-6298Zufcmmcobogd (1 source)Left shoulder pain, unspecified txlkpaeffa90-24-6034 Past or Other Problems Problem ClassificationProblemDateDocumented DateEpisodic/ChronicComplication of device; implant or graft (5 sources)Complication associated with musculoskeletal implant; Translations: [Mechanical loosening of unspecified internal prosthetic joint, initial encounter]Onset: 088747-01-6341BzjcwmbuJfdtwldvag disorders (13 sources)Esophageal disorders; Translations: [Gastroesophageal reflux disease with esophagitis without hemorrhage]Other and unspecified benign neoplasm (20 sources)Tubular adenoma of colon; Translations: [Benign neoplasm of colon, unspecified]Onset: 373598-29-6765SyzsxwhaChgry non-traumatic joint disorders (7 sources)Pain in left shoulder; Translations: [Pain in joint, shoulder region] Onset: 82-72-9350KqxmozltShgkc non-traumatic joint disorders (1 source)Other instability, left shoulder; Translations: [Instability of left shoulder joint]Onset: 35-83-8866FmzikqibEtguf infection (14 sources)Disease caused by 2019-nCoV; Translations: [COVID-19] Results Test NameValueInterpretationReference RangeFacilityCNPNon 18-19-7401TPKK Telephone (Zenbox) CHAVA VASQUEZ JR ([id number]) 1970 M Date Time Provider Department 01/29/25 BRIELLE KRAUS During your visit today, we recorded the following information about you: Dorinda Jean RN 01/29/2025 8:43 AM Signed Call placed to pt to schedule shoulder surgery, no answer, offered pt surgical date of 03/19 as this is the only date we have till the end of the year, awaiting pt to call back at this time, direct office number provided. Allergies As of Date: 01/29/2025 (No Known Allergies) Date Reviewed: 01/27/2025 Reviewed by: Hugo Mckeon MA - Fully Assessed Reason for Visit: Emt I/85 - Other [0892] Prescriptions as of 01/29/2025 - ALPRAZolam (XANAX) 0.25 mg tablet Take [...] by mouth. 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 NOTE Department of Orthopaedics Brielle Kraus MD [facility] NAME: Chava Vasquez JR CLINIC NO.: [id number] DATE: 01/27/2025 Recording using ProQuo software for draft documentation of the visit was discussed with the patient/authorized insurance claims representative; all questions welcomed and answered. Patient/authorized insurance claims representative agreed to proceed Interval Hx: Patient presents with: Left Shoulder - Pain Chava Vasquez JR is back for evaluation of his left shoulder. Our last visit was on 11/18/2024 with Brielle Kraus and we proceeded with aspiration. This yielded 2 ccs of bloody fluid with 817 TNCs, 87% PMNs, no crystals, and no growth on [...] by myself and discussed with the patient. CT arthogram images shows [...] on culture results: 2 weeks of oral antibiotics if cultures are negative, longer duration if cultures are positive. - Patient educated on post-operative care, including use of sling and gentle arm movements to reduce risk of dislocation. - Patient consented to surgery and participation in multi-center study on revision surgeries. - Surgery to be scheduled at main campus with overnight hospital stay. - Follow-up appointments to be scheduled at 2 weeks, 6 weeks, 3 months, 1 year, 2 years, 5 years, and 10 years post-surgery. Brielle Kraus M.D. MMacyMMacySc. Shoulder and Elbow Surgeon Orthopaedic Surgery Department [place], [place] [address] Tell: [phone] Appt:[phone] Referring Provider: BRIELLE KRAUS [[id number]] Allergies As of Date: 01/27/2025 (No Known All (more content not included)...NormalKettering Memorial HospitalXR Wrist - left 3 Viewson 25-03-8471Lvolqwf Result: 3 views of the left wrist, PA/lateral/oblique, taken today and saved to the permanent medical record. No acute osseous abnormalities. No slip degenerative changes. Ulnar positive variance.Critical access hospitalXR Wrist - left 3 Viewson 56-29-0716Fxgtgwhcj Study observation (narrative)Cox Walnut LawnCNOVon 43-10-1623LXNQAabauo Visit (ORTHMN) CHAVA VASQUEZ JR ([id number]) 1970 M Date Time Provider Department 11/18/24 9:45 AM BRIELLE KRAUS ORTHMN During your visit today, we recorded the following information about you: Brielle Kraus MD 11/18/2024 12:[address] [facility] NOTE Department of Orthopaedics Brielle Kraus MD [facility] NAME: Chava Vasquez JR CLINIC NO.: [id number] DATE: 11/18/2024 Interval Hx:Chava Vasquez JR is [...] aseptic necrosis of left shoulder ([facility]) M87.012 2. S/P shoulder replacement, left Z96.612 PLAN: I told Chava Vasquez that his workup did not show any [...] Shoulder and Elbow Surgeon Orthopaedic Surgery Department [place], [place] [address] Tell: [phone] Appt:[phone] Allergies As of Date: 11/18/2024 (No Known [...] Service: OFFICE/OUTPATIENT ESTABLISHED MOD MDM 30 MIN [39375] Additional E/M codes: VISIT CPLX INHERENT EANDM ASSOC WITH MED * Disposition: Return if symptoms worsen or fail to improve. Follow-up and Disposition History for Enc (more content not included)...Normal Kettering Memorial HospitalBacteria Fld Culton 82-33-3699Gbdkrbmq identified Cx Nom (Body fld)CULTURE, BODY FLD: No growth 14 days GRAM STAIN: No organisms seen No Polymorphonuclear Leukocytes Gram stain from primary specimenNormalCleveland Clinic Lutheran Hospital Cleuc west chester hospitalComment on above:Performed By: #### 611-4 #### [facility] CLIA [id number] [address] [place] [address] [place] AMERICABasophils Auto (Bld) [#/Vol] Ordered By: Max Tucker on 13-73-7972Iodaqmyok (Bld) [#/Vol]0.04 10*3/uL<0.11 [facility] CenterBasophils/100 WBC Auto (Bld)Ordered By: Max Tucker on 20-99-7780Ymugzheur/100 WBC (Bld)0.5 %[facility] Medical CenterBlood manual differential comment interpretation narrativeOrdered By: Max Tucker on 14-79-7460Almuxm differential comment Rasheed (Bld) [Interp] [facility] HospitalBody fluid crystal identification by light microscopyOrdered By: Brielle Kraus on 85-27-5385Vafmlyul LM Nom (Body fld)None seenNone seenTrumbull Regional Medical CenterC-REACTIVE PROTEINon 10-28-2024 CRP [Mass/Vol]mg/dLNINF - 0.9 mg/dLCleveland Clinic Lutheran HospitalCBC W Auto Differential panel (Bld)on 55-74-4048Onhskbzmb (Bld) [#/Vol]0.04 10*3/uLNINFCleveland Clinic Lutheran Hospital Basophils/100 WBC (Bld)0.5 %[facility] HospitalDifferential cell count method Nom (Bld)AutoCleveland ClinicEosinophils (Bld) [#/Vol]0.06 10*3/uLNINFCleveland Clinic Lutheran HospitalEosinophils/100 WBC (Bld)0.8 %[facility] Luther[facility] HospitalErythrocyte distribution width (RBC) [Ratio]16.3 %High11.5 - 15.0 %[facility] Luther[facility] HospitalHematocrit (Bld) [Volume fraction]40.8 %39.0 - 51.0 %[facility] Luther[facility] HospitalHemoglobin (Bld) [Mass/Vol] 12.7 g/dLLow13.0 - 17.0 g/dLCleveland Clinic Lutheran HospitalImmature granulocytes (Bld) [#/Vol] 0.03 10*3/uLNINFCleveland Clinic Lutheran HospitalImmature granulocytes/100 WBC (Bld)0.4 % [facility] HospitalInterpretation and review of laboratory resultsAbnormalCEast [place] Regional HospitalLymphocytes (Bld) [#/Vol]1.2 10*3/uLCleveland Clinic Lutheran HospitalLymphocytes/100 WBC (Bld)16.4 %[facility] HospitalH (RBC) [Entitic mass]24.4 pgLow26.0 - 34.0 pg [facility] HospitalHC (RBC) [Mass/Vol]31.1 g/dL30.5 - 36.0 g/dLCleveland Clinic Lutheran Hospital MCV (RBC) [Entitic vol]78.3 fLLow80.0 - 100.0 fLCEast [place] Regional HospitalMonocytes (Bld) [#/Vol]0.61 10*3/uLNINFCleveland Clinic Lutheran HospitalMonocytes/100 WBC (Bld)8.4 %[facility] Luther[facility] HospitalNeutrophils (Bld) [#/Vol]5.36 10*3/uLCleveland Clinic Lutheran HospitalNeutrophils/100 WBC (Bld)73.5 %[facility] HospitalNucleated RBC (Bld) [#/Vol]NINFCEast [place] Regional Hospital Nucleated RBC/100 WBC (Bld) [Ratio]0 %/100 WBCCleveland Clinic Lutheran HospitalPlatelet mean volume (Bld) [Entitic vol]8.8 fLLow9.0 - 12.7 fLClutheran hospital ClinicPlatelets (Bld) [#/Vol]311 10*3/uLCleveland Clinic Lutheran HospitalRBC (Bld) [#/Vol]5.21 10*6/uL4.20 - 6.00 m/uL [facility] HospitalWBC (Bld) [#/Vol]7.3 10*3/uLSouthern [place] Medical Center Clinic Basophils (Bld) [#/Vol]0.04 10*3/uLNormal<0.11CParkview Health Bryan HospitalComment on above:Order Comment: Specimen Type: BLOOD SPECIMEN [facility]ing Facility: [facility] Address: [address] [place], [place] [address]Performed By: #### 84841-6, 7 #### [facility] CLIA [id number] [address] [place] [address] [place] AMERICABasophils/100 WBC (Bld)0.5 % NormalCleveland Clinic on above:Order Comment: Specimen Type: BLOOD SPECIMEN Ordering Facility: [facility] Address: [address] [place], [place] [address]Performed By: #### 41317-7, 7 #### [facility] CLIA [id number] [address] [place] [address] [place] AMERICADifferential cell count method Nom (Bld)AutoNormalCKettering Health Hamilton on above:Order Comment: Specimen Type: BLOOD SPECIMEN Ordering Facility: [facility] Address: [address] [place], [place] [address]Performed By: #### 03226-0, 7 #### [facility] CLIA [id number] [address] [place] [address] [place] AMERICAEosinophils (Bld) [#/Vol] 0.06 10*3/uLNormal<0.46[facility] on above:Order Comment: Specimen Type: BLOOD SPECIMEN Ordering Facility: [facility] Address: [address] [place], [place] [address]Performed By: #### 40543-6, 7 #### [facility] CLIA [id number] [address] [place] [address] [place] AMERICAEosinophils/100 WBC (Bld)0.8 %[facility] on above:Order Comment: Specimen Type: BLOOD SPECIMEN Ordering Facility: [facility] Address: [address] [place], [place] [address]Performed By: #### 24362-4, 7 #### [facility] CLIA [id number] [address] [place] [address] [place] AMERICAErythrocyte distribution width (RBC) [Ratio]16.3 %High11.5-15.0[facility] on above:Order Comment: Specimen Type: BLOOD SPECIMEN [facility]ing Facility: [facility] Address: [address] [place], [place] [address]Performed By: #### 59248-1, 453-7 #### [facility] CLIA [id number] [address] [place] [address] [place] AMERICAHematocrit (Bld) [Volume fraction]40.8 %Akjeju09.0-51.0[facility] on above:Order Comment: Specimen Type: BLOOD SPECIMEN [facility]ing Facility: [facility] Address: [address] [place], [place] [address]Performed By: #### 15697-8, 453-7 #### [facility] CLIA [id number] [address] [place] [address] [place] AMERICAHemoglobin (Bld) [Mass/Vol] 12.7 g/dLLow13.0-17.0[facility] on above:Order Comment: Specimen Type: BLOOD SPECIMEN [facility]ing Facility: [facility] Address: [address] [place], [place] [address]Performed By: #### 10420-7, 453-7 #### [facility] CLIA [id number] [address] [place] [address] [place] AMERICAImmature granulocytes (Bld) [#/Vol]0.03 10*3/uLNormal<0.10[facility] on above:Order Comment: Specimen Type: BLOOD SPECIMEN [facility]ing Facility: [facility] Address: [address] [place], [place] [address]Performed By: #### 81630-7, 4537-7 #### [facility] CLIA [id number] [address] [place] [address] [place] AMERICAImmature granulocytes/100 WBC (Bld)0.4 %NormalCleveland Clinic on above:Order Comment: Specimen Type: BLOOD SPECIMEN [facility]ing Facility: [facility] Address: [address] [place], [place] [address]Performed By: #### 90988-5, 4537-7 #### [facility] CLIA [id number] [address] [place] [address] [place] AMERICALymphocytes (Bld) [#/Vol] 1.20 10*3/uLNormal1.00-4.00[facility] on above:Order Comment: Specimen Type: BLOOD SPECIMEN [facility] Facility: [facility] Address: [address] [place], [place] [address]Performed By: #### 19918-1, 4536-7 #### [facility] [place] [id number] [address] [place] [address] [place] AMERICALymphocytes/100 WBC (Bld) 16.4 %NormalCleveland Clinic on above:Order Comment: Specimen Type: BLOOD SPECIMEN Ordering Facility: [facility] Address: [address] [place], [place] [address]Performed By: #### 92799-5, 453-7 #### [facility] [place] [id number] [address] [place] [address] (RBC) [Entitic mass]24.4 pgLow26.0-34.0[facility] on above:Order Comment: Specimen Type: BLOOD SPECIMEN Ordering Facility: [facility] Address: [address] [place], [place] [address]Performed By: #### 10129-9, 453-7 #### [facility] CLIA [id number] [address] [place] [address] (RBC) [Mass/Vol]31.1 g/jMNzwpps35.5-36.0[facility] on above:Order Comment: Specimen Type: BLOOD SPECIMEN Order[facility] Facility[facility] Address: [address] [place], [place] [address]Performed By: #### 62673-0, 453-7 #### [facility] CLIA [id number] [address] [place] [address] [place] AMERICAMCV (RBC) [Entitic vol]78.3 fLLow80.0-100.0[facility] on above:Order Comment: Specimen Type: BLOOD SPECIMEN [facility] Facility[facility] Address: [address] [place], [place] [address]Performed By: #### 05608-6, 453-7 #### [facility] CLIA [id number] [address] [place] [address] [place] AMERICAMonocytes (Bld) [#/Vol]0.61 10*3/uLNormal<0.87[facility] on above:Order Comment: Specimen Type: BLOOD SPECIMEN [facility] Address: [address] [place], [place] [address]Performed By: #### 48083-9, 453-7 #### [facility] CLIA [id number] [address] [place] [address] [place] AMERICAMonocytes/100 WBC (Bld)8.4 % NormalCleveland Clinic on above:Order Comment: Specimen Type: BLOOD SPECIMEN [facility] Facility[facility] Address: [address] [place], [place] [address]Performed By: #### 92403-6, 7 #### [facility] CLIA [id number] [address] [place] [address] [place] AMERICANeutrophils (Bld) [#/Vol] 5.36 10*3/uLNormal1.45-7.50[facility] on above:Order Comment: Specimen Type: BLOOD SPECIMEN [facility] Address: [address] [place], [place] [address]Performed By: #### 95371-5, 4537-7 #### [facility] CLIA [id number] [address] [place], [place] [address] [place] AMERICANeutrophils/100 WBC (Bld) 73.5 %NormalCleveland Clinic on above:Order Comment: Specimen Type: BLOOD SPECIMEN [facility] Facility[facility] Address: [address] [place], [place] [address]Performed By: #### 61156-3, 4537-7 #### [facility] CLIA [id number] [address] [place] [address] [place] AMERICANucleated RBC (Bld) [#/Vol] 10*3/uLNormal<0.01[facility] on above:Order Comment: Specimen Type: BLOOD SPECIMEN [facility] Facility[facility] Address: [address] [place], [place] [address]Performed By: #### 05322-8, 4537-7 #### [facility] CLIA [id number] [address] [place] [address] [place] AMERICANucleated RBC/100 WBC (Bld) [Ratio]0.0 /100 WBCNormalCKettering Health Hamilton on above:Order Comment: Specimen Type: BLOOD SPECIMEN [facility] Facility[facility] Address: [address] [place], [place] [address]Performed By: #### 24098-3, 4537-7 #### [facility] CLIA [id number] [address] [place], [place] [address] [place] AMERICAPlatelet mean volume (Bld) [Entitic vol]8.8 fLLow9.0-12.7ClevelOhioHealth O'Bleness Hospital on above:Order Comment: Specimen Type: BLOOD SPECIMEN [facility] Address: [address] [place], [place] [address]Performed By: #### 37560-2, 4537-7 #### [facility] CLIA [id number] [address] [place], [place] [address]Platehomberg memorial [facility] (d) [#/Vol]311 10*3/gHJmckcl986-889CdibfryfmCleveland Clinic on above:Order Comment: Specimen Type: BLOOD SPECIMEN [facility] Facility[facility] Address: [address] [place], [place] [address]Performed By: #### 91330-3, 4537-7 #### [facility] CLIA [id number] [address] [place] [address] ([facility]) [#/Vol]5.21 10*6/uLNormal4.20-6.00[facility] on above:Order Comment: Specimen Type: BLOOD SPECIMEN [facility] Facility[facility] Address: [address] [place], [place] [address]Performed By: #### 26007-9, 4537-7 #### [facility] CLIA [id number] [address] [place] [address] ([facility]) [#/Vol]7.30 10*3/uLNormal3.70-11.00[facility] on above:Order Comment: Specimen Type: BLOOD SPECIMEN Ordering Facility[facility] Address: [address] [place], [place] [address]Performed By: #### 01101-0, 4537-7 #### [facility] CLIA [id number] [address] [place], [place] [address]CNOVon 84-71-9889SWPDWcajbo Visit (ORTHMN) CHAVA VASQUEZ JR ([id number]) 1970 M Date Time Provider Department 10/28/24 10:15 AM BRIELLE KRAUS During your visit today, we recorded the following information about you: Brielle Kraus MD 10/28/2024 1:20 PM Signed Brielle Kraus M.D. M.M.Sc. [facility] at [place] [address] Office: [phone] Consult requested for an opinion regarding the evaluation and treatment of the above patient. My final impression and recommendations will be communicated back to the requesting physician by way of the shared medical record or letter via US mail. Patient info: Chava Vasquez JR ([id number]) Service date: 10/28/2024 Referred by: Zen Rdz DO [address] [place] [address] PCP: DO Garrett Chief Complaint: Left shoulder pain. HPI:Chava Vasquez JR is a 54 year old Left hand dominant male who presents with left shoulder pain S/p TSA with Dr. Liang DO. His complaints include subjective instability since surgery and difficulty with active forward flexion and internal and external rotation. No infection symptoms such as erythema, fevers. Negative ESR/CRP by Dr. Rdz. He fell after surgery while walking down stairs, but nothing visible on XR after the fall. He has a hx of DM II, glucose controlled with medications. Chvaa reports a current pain level of 5 [...] Axillary n. Negative (more content not included)...NormalKettering Memorial HospitalCR SerPl-mCncon 86-85-7573AGD [Mass/Vol]mg/LNormal<0.9CKettering Health Hamilton on above:Order Comment: Specimen Type: BLOOD SPECIMEN [facility] Address: [address] [place], [place] [address]Performed By: #### 1988-5 #### [facility] CLIA [id number] [address] [place] [address] [place] AMERICACRP [Mass/Vol]on 10-28-2024 Interpretation and review of laboratory resultsNormalCMetroHealth Main Campus Medical Center Westergren method (Bld) [Velocity]on 27-29-3750MQK (Bld) [Velocity]2 mm/hClevlindside ClinicInterpretation and review of laboratory resultsNormal [facility]enan Private HospitalR (Bld) [Velocity]2 mm/hNormal0-15[facility] on above:Order Comment: Specimen Type: BLOOD SPECIMEN [facility] Address: [address] [place], [place] [address]Performed By: #### 75819-7, 4537-7 #### [facility] CLIA [id number] [address] [place] [address] [place] AMERICAEosinophils/100 WBC Auto (Bld)Ordered By: Max Tucker on 49-82-5071Blpgdpgetti/100 WBC (Bld)0.8 % [facility] Medical CenterErythrocyte distribution width Auto (RBC) [Ratio]Ordered By: Max Tucker on 52-12-3079Bsvjostqeey distribution width (RBC) [Ratio]16.3 %High11.5-15.0[facility] CenterEvaluation of color of body fluidOrdered By: Brielle Kraus on 56-13-8319Arzwd (Body fld) BloodyAbnormalYellowTrumbull Regional Medical CenterHematocrit Auto (Bld) [Volume fraction]Ordered By: Max Tucker on 66-63-2654Mqjhhucugm (Bld) [Volume fraction]40.8 %39.0-51.0[facility] Medical CenterHemoglobin [Mass/volume] in BloodOrdered By: Max Tucker on 19-60-7884Adcynvhisj (Bld) [Mass/Vol]12.7 g/dLLow13.0-17.0[facility] CenterLaboratory - Hematology and Cell countsOrdered By: Max Tucker on 10-43-0132Pwodqcvmepk (Bld) [#/Vol]0.06 10*3/uL<0.46[facility] Medical CenterImmature granulocytes (Bld) [#/Vol]0.03 10*3/uL<0.10[facility] Immature granulocytes/100 WBC (Bld)0.4 %[facility] Laboratory - Hematology and Cell countsOrdered By: Brielle Kraus on 10-28-2024 ESR (Bld) [Velocity]2 mm/h0-15[facility] CenterLaboratory - Specimen informationOrdered By: Brielle Kraus on 14-58-7788Ibojfykxyp (U)Cloudy AbnormalCleMercy Health Perrysburg HospitalLarge Joint Arthro/Inj: L shoulder jointon 08-14-7156WjziaunaBrielle Kraus MD 10/28/2024 1:20 PM Large Joint Arthro/Inj: L shoulder joint 10/28/2024 10:54 AM The procedure site was prepped in the usual sterile fashion. Site: L shoulder joint Aspirate: 2 mL bloody; sent for lab analysis Outcome: Tolerated well, no immediate complications Post-injection instructions were reviewed with the patient and the patient voiced understanding of these instructions. Informed Consent Consent Obtained: Verbal [place] Protocol A moment to CARE was completed. [...] multidisciplinary team (including bedside nurse for hospitalized patients).[facility] Medical CenterLeukocytes [#/volume] corrected for nucleated erythrocytes in Blood by Automated counOrdered By: Max Tucker on 13-00-8995RFL corrected for nucl RBC Auto (Bld) [#/Vol]7.30 k/uL3.70-11.00[facility] Lymphocytes Auto (Bld) [#/Vol]Ordered By: Max Tucker on 87-81-0874Xekdfovjufz (Bld) [#/Vol]1.20 10*3/uL1.00-4.00[facility] Lymphocytes/100 WBC Auto (Bld)Ordered By: Max Tucker on 10-28-2024 Lymphocytes/100 WBC (Bld)16.4 %[facility] Auto (RBC) [Entitic mass]Ordered By: Max Tucker on 05-37-4131TFO (RBC) [Entitic mass] 24.4 pgLow26.0-34.0[facility] HospitalHC Auto (RBC) [Mass/Vol] Ordered By: Max Tucker on 02-61-5761UUDU (RBC) [Mass/Vol]31.1 g/dL30.5-36.0 [facility] HospitalV Auto (RBC) [Entitic vol]Ordered By: Max Tucker on 61-33-4314GHC (RBC) [Entitic vol]78.3 fLLow80.0-100.0[facility] Medical CenterManual body fluid eosinophils/100 leukocytesOrdered By: Brielle Kraus on 29-76-0879Tubnzphleaq/100 WBC Manual cnt (Body fld)2FAdams County Regional Medical CenterManual body fluid lymphocytes/100 leukocytesOrdered By: Brielle Kraus on 01-31-4138Kyqehdtqsii/100 WBC Manual cnt (Body fld)6FAdams County Regional Medical CenterMonocytes Auto (Bld) [#/Vol]Ordered By: Max Tucker on 85-72-1074Xyofrnrow (Bld) [#/Vol]0.61 10*3/uL<0.87[facility] CenterMonocytes/100 WBC Auto (Bld)Ordered By: Max Tucker on 10-28-2024 Monocytes/100 WBC (Bld)8.4 %[facility] Medical CenterNeutrophils Auto (Bld) [#/Vol]Ordered By: Max Tucker on 06-03-9621Qyrkxmiaszv (Bld) [#/Vol] 5.36 10*3/uL1.45-7.50[facility] Medical CenterNeutrophils/100 WBC Auto (Bld)Ordered By: Max Tucker on 12-26-3080Hgoykvardsj/100 WBC (Bld)73.5 % [facility] CenterNeutrophils/100 WBC Manual cnt (Body fld) Ordered By: Brielle Kraus on 83-74-1121Ftwdvshpkqn/100 WBC (Body fld)87 %High 0-<25[facility] CenterNo Panel InformationOrdered By: Brielle Kraus on 48-41-0462M-Reactive Protein, Quantitative<0.3 mg/dL<0.9[facility] CenterBody Fluid Macrophages (%)1FAdams County Regional Medical CenterBody Fluid Monocytes %4FAdams County Regional Medical CenterBody Fluid RBC [id number] /uLHigh<2000[facility] CenterBody Fluid TypeShoulder, LeftTrumbull Regional Medical CenterBody Fluid VRS636 /uLHigh0-200[facility] CenterDifferential Total Cells Hkxqrcs561 cells counted [facility] CenterMiscellaneous Test CommentReviewed by Edna Johnston MDAultman Hospitalynovial Fluid Crystals Preliminary PRELIMINARY REPORT No diagnostic crystals seen. SEE FINAL SF PATH REVIEW [facility] CenterNucleated RBC Auto (Bld) [#/Vol]Ordered By: Max Tucker on 94-10-6929Mhljoqfsd RBC (Bld) [#/Vol]10*3/uL<0.01[facility] Medical CenterNucleated erythrocytes [Presence] in Blood by Automated countOrdered By: Max Tucker on 51-81-4059Pcrpcqntj RBC Auto Ql (Bld)0.0 /100{WBC}[facility] Medical CenterPlatelet mean volume Auto (Bld) [Entitic vol]Ordered By: Max Tucker on 35-34-1750Oopvegvo mean volume (Bld) [Entitic vol]8.8 fLLow9.0-12.7FAdams County Regional Medical CenterPlatelets Auto (Bld) [#/Vol]Ordered By: Max Tucker on 64-94-2338Qirjviang (Bld) [#/Vol]311 10*3/fH880-814NhcekoguhTrumbull Regional Medical CenterRBC Auto (Bld) [#/Vol]Ordered By: Max Tucker on 78-07-2333CJA (Bld) [#/Vol]5.21 10*6/uL4.20-6.00Aultman HospitalYNOVIAL FLUID MANUAL DIFFon 75-93-4259AJX TTL, SYNOVIAL QWVMR367 cells countedNormalCKettering Health Hamilton on above:Order Comment: Specimen Type: FLUID SPECIMEN Ordering Facility: [facility] Address: [address] [place], [place] [address]Performed By: #### KINJAL, RTSYNF, [id number] #### [facility] CLIA [id number] [address] [place] [address] [place] AMERICAEOSIN %, UP7NmpxitRikbayvtfKettering Health Hamilton on above:Order Comment: Specimen Type: FLUID SPECIMEN Ordering Facility: [facility] Address: [address] [place], [place] [address]Performed By: #### SFCRID, RTSYNF, [id number] #### [facility] CLIA [id number] [address] [place] [address] [place] AMERICALYMPH%, NF8CrdcopNujbxteaqKettering Health Hamilton on above:Order Comment: Specimen Type: FLUID SPECIMEN Ordering Facility: [facility] Address: [address] [place], [place] [address]Performed By: #### KINJAL, RTSYNF, [id number] #### [facility] CLIA [id number] [address] [place] [address] [place] AMERICAMACRO%, LS1IbtersEtumxgqlyKettering Health Hamilton on above:Order Comment: Specimen Type: FLUID SPECIMEN Ordering Facility: [facility] Address: [address] [place], [place] [address]Performed By: #### KINJAL, RTSYNF, [id number] #### [facility] CLIA [id number] [address] [place] [address], [place] [address] [place] AMERICAMONO%, OO2PllfpsVuhxynndhMemorial Health System [facility] on above:Order Comment: Specimen Type: FLUID SPECIMEN Ordering Facility: [facility] Address: [address] [place], [place] [address]Performed By: #### KINJAL, RTSYNF, [id number] #### [facility] CLIA [id number] [address] [place], [place] [address] [place] AMERICANEUT%02Zmyp8-<25[facility] on above:Order Comment: Specimen Type: FLUID SPECIMEN Ordering Facility: [facility] Address: [address] [place], [place] [address]Performed By: #### KINJAL, RTSYNF, [id number] #### [facility] CLIA [id number] [address] [place] [address], [place] [address] [place] OF AMERICASYNOVIAL FLUID, CRYSTAL ID/PATHOLOGIST INTERPRETATIONon 29-75-3049LXYMRWL PRELIM, SFPRELIMINARY REPORT No diagnostic crystals seen. SEE FINAL SF PATH REVIEWMemorial Health System Marietta [facility] Hospital on above:Order Comment: Specimen Type: FLUID SPECIMEN Ordering Facility: [facility] Address: [address] [place], [place] [address]Performed By: #### SFHAYDEE, RTSYNF, [id number] #### [facility] CLIA [id number] [address] [place] [address] REVIEWReviewed by Greg CoatesProMedica Bay Park Hospital on above:Order Comment: Specimen Type: FLUID SPECIMEN Ordering Facility: [facility] Address: [address] [place], [place] [address]Performed By: #### KINJAL, RTSYNF, [id number] #### [facility] CLIA [id number] [address] [place], [place] [address]CrMercy Health Anderson Hospital Nom (Syn fld) None seenNormalNone seenCleveland Clinic on above:Order Comment: Specimen Type: FLUID SPECIMEN Ordering Facility: [facility] Address: [address] [place], [place] [address]Performed By: #### KINJAL, RTSYNF, [id number] #### [facility] CLIA [id number] [address] [place], [place] [address]SYNOVIAL FLUID, ROUTINE Ordered By: Tiffany Mcdonald on 44-03-1919Enldvcv (Unsp spec)CloudyAbnormalClear [facility] Lutheran HospitalClarity (Unsp spec)[facility] Luther[facility] HospitalComselect specialty hospital-[facility]aginaw on above:Unable to assay. Quantity not sufficient.Color (Syn fld)BloodyAbnormalYellowCleveland Clinic Lutheran HospitalColor (Syn fld)[facility] on above:Unable to assay. Quantity not sufficient.Interpretation and review of laboratory resultsAbnoalCOhioHealth Van Wert Hospital Manual cnt (Syn fld) [#/Vol][id number] /uLHighNINF - 2000 /uLRegency Hospital Toledopecimen source Nom (Unsp spec)Shoulder, LeftSt. Mary's Medical Center Manual cnt (Syn fld) [#/Vol]817 /uLHigh0 - 200 /uLDayton VA Medical Center SYNOVIAL FLUID, ROUTINEon 21-96-7480Pdquaob (Unsp spec)NormalClearCKettering Health Hamilton on above:Order Comment: Specimen Type: FLUID SPECIMEN Ordering Facility: [facility] Address: [address] [place], [place] [address]Result Comment: Unable to assay. Quantity not sufficient.Performed By: #### ISAIAS LAYTON, [id number] #### [facility] CLIA [id number] [address] [place], [place] [address] [place] AMERICAColor (Syn fld)NormalYellow [facility] on above:Order Comment: Specimen Type: FLUID SPECIMEN Ordering Facility[facility] Address: [address] [place], [place] [address]Result Comment: Unable to assay. Quantity not sufficient.Performed By: #### ISAIAS LAYTON, [id number] #### [facility] CLIA [id number] [address] [place], [place] [address] [place] OF AMERICACARDINAL HILL RE[facility] Manual cnt (Syn fld) [#/Vol][id number] /uLHigh<2000[facility] on above:Order Comment: Specimen Type: FLUID SPECIMEN Ordering Facility[facility] Address: [address] [place], [place] [address]Performed By: #### ISAIAS LAYTON, [id number] #### [facility] CLIA [id number] [address] [place] [address] [place] OF AMERICASpecimen source Nom (Unsp spec)Shoulder, LeftNormalCKettering Health Hamilton on above:Order Comment: Specimen Type: FLUID SPECIMEN Ordering Facility: [facility] Address: [address] [place], [place] [address]Performed By: #### ISAIAS LAYTON, [id number] #### [facility] CLIA [id number] [address] [place], [place] [address] [place] OF AMERICAEASTERN NIAG[facility] Manual cnt (Syn fld) [#/Vol]817 /uLHigh0-200[facility] on above:Order Comment: Specimen Type: FLUID SPECIMEN [facility] Address: [address] [place], [place] [address]Performed By: #### SFHAYDEE, RTSYNF, [id number] #### [facility] CLIA [id number] [address] [place], [place] [address] [address] [place] DJDRVHWSaF1p HPLC (Bld) [Mass fraction]Ordered By: Max Tucker on 34-66-5672AtT3n (Bld) [Mass fraction]8.3 % [facility] CenterLab Miscellaneous-LCon 74-28-2323Cei MiscellaneousCOMMENTInvalid Interpretation CodeBlanchard Valley Health System [facility] Comment on above:Result Comment: Test Ordered: [id number] Interleukin-6, Serum Interleukin-6, Serum <2.5 pg/mL BN [...] endotracheal intubation or mechanical ventilation. Performed at: [facility] [id number] [place], [place] [id number] PhD Tano ChavezPerformed By: #### [id number] #### Domingo [facility] [address], [place] [address]SPY w/ Auto Diffon 16-73-5156Uwtvwaad Absolute0.0 E9/LNormal 0.0-0.2[facility] MarylandComment on above:Performed By: #### [id number] #### [facility] [address], [place] [address]Xfjfzpcvk/100 WBC (Bld)0.7 %Normal0.0-2.0NOMS HealthcareComment on above:Performed By: #### [id number] #### [address] [facility] [address], [place] [address]Qge Absolute0.1 E9/LNormal0.0-0.5FSelect Medical OhioHealth Rehabilitation Hospital Comment on above:Performed By: #### [id number] #### [facility] [address], [place] [address]Ekwnlwliwdg/100 WBC (Bld)1.6 %Normal0.0-8.0[facility] Comment on above:Performed By: #### [id number] #### [facility] [address], [place] [address]Wrxtlcvkzcv distribution width (RBC) [Ratio]16.1 %High10.9-14.2 [facility] HealthcareComment on above:Performed By: #### [id number] #### [facility] [address], [place] [address]Duftlacohc (Bld) [Volume fraction]39.8 %Bcrbhl72.7-49.0NOMS HealthcareComment on above:Performed By: #### [id number] #### [address] [facility] [address], [place] [address]Rdlmnwotab (Bld) [Mass/Vol]13.0 g/dLLow13.5-17.5FSelect Medical OhioHealth Rehabilitation HospitalComment on above:Performed By: #### [id number] #### [facility] [address], [place] [address]Ekufh Absolute0.8 E9/LLow1.0-4.0[facility] Comment on above:Performed By: #### [id number] #### [facility] [address], [place] [address]Xuencowsgwz/100 WBC (Bld)12.3 %Low14.0-50.0[facility] Comment on above:Performed By: #### [id number] #### [facility] [address], [place] [address]FVM (RBC) [Entitic mass]24.9 pgLow27.0-34.0[facility] Comment on above:Performed By: #### [id number] #### [facility] [address], [place] [address]SCDE (RBC) [Mass/Vol]32.7 g/fOJxhhoa02.4-36.0[facility] Comment on above:Performed By: #### [id number] #### [facility] [address], [place] [address]ZPK (RBC) [Entitic vol]76.2 fLLow80.0-100.0[facility] Comment on above:Performed By: #### [id number] #### [facility] [address] [place] [address]Trws Absolute0.5 E9/LNormal0.2-1.0[facility] Comment on above:Performed By: #### [id number] #### [facility] [address] [place] [address]Nzvzlfsyb/100 WBC (Bld)7.8 %Normal4.0-14.0[facility] Comment on above:Performed By: #### [id number] #### [facility] [address], [place] [address]Pzmcov Absolute5.3 E9/LNormal2.0-7.5FSelect Medical OhioHealth Rehabilitation Hospital Comment on above:Performed By: #### [id number] #### [facility] [address], [place] [address]FCFEEH AUTO77.6 %High36.0-75.0NOMS HealthcareComment on above: Performed By: #### [id number] #### [facility] [address] [place] [address]Akpcvhlt996.0 E9/GRktmaa536.0-500.0[facility] Comment on above:Performed By: #### [id number] #### [facility] [address], [place] [address]Egcwuesz mean volume (Bld) [Entitic vol]7.0 fLNormal6.4-10.8 [facility] HospitalComment on above:Performed By: #### [id number] #### [facility] [address], [place] [address]QIN4.2 E12/LNormal4.3-5.9[facility] HospitalComment on above:Performed By: #### [id number] #### [facility] [address], [place] [address]GFS0.8 E9/LNormal4.0-11.0[facility] HospitalComment on above:Performed By: #### [id number] #### [facility] [address] [place] [address]BQGDATTFFUqrnyrf By: SYSTEM SYSTEM on 19-10-7066UWH [Mass/Vol] 0.4 mg/dLNormal<=1.9mg/dLRemisol ChemCRPon 38-17-1011BGX8.4 mg/dLNormal<=1.9 [facility] HospitalComment on above:Performed By: #### [id number] #### [facility] [address] [place] [address]QT UPPER EXTREMITY W/ CONTRAST LEFTon 09-24-2024 Exam [...] Chava Robert DO Transcribed by: SALVADOR Technologist: CASSANDRA,[facility] MIAMIRadiology, Radiologist, MD - 09/24/2024 Exam Date/Time: 09/24/2024 12:00 EDT [...] SALVADOR Technologist: FELIBERTO TRUJILLO HealthcareRadiology Study observation (narrative)[facility] HealthcareCT UPPER EXTREMITY W/ CONTRAST LEFTOrdered By: Radiologist Radiology on 28-42-2569WYSH Birst Work Phone: cT Upper Extremity w/ Contrast Lefton 48-66-0609DG Upper Extremity w/ Contrast LeftExam Date/Time: 09/24/2024 [...] Chava Robert DO Transcribed by: SALVADOR Technologist: CASSANDRAMemorial Health System CBC W/ AUTO DIFFon 55-58-0005Jcvspeman (Bld) [#/Vol]0 10*3/uLNOWV HealthcareEOS ABSOLUTE0.1NOMS HealthcareHemoglobin (Bld) [Mass/Vol]13 g/dLLowCox Walnut Lawn Interpretation and review of laboratory resultsAbnormalNOMS HealthcareLYMPH ABSOLUTE0.8LowNOMS HealthcareMONO ABSOLUTE0.5NOMS HealthcareNEUTRO ABSOLUTE5.3 [facility] HealthcarePlatelet mean volume (Bld) [Entitic vol]7 fL6.4 - 10.8 fLJORDAN VALLEY MEDICAL CENTER HealthcarePlatelets (Bld) [#/Vol]389 10*3/uLJORDAN VALLEY MEDICAL CENTER HealthcareRBC (Bld) [#/Vol]5.2 10*6/uLJORDAN VALLEY MEDICAL CENTER HealthcareWBC (Bld) [#/Vol]6.8 10*3/[facility] HealthcareOriginal Ordering Provider: DO Zen AaronHOLDEN HOSPITAL HealthcareHEMATOLOGYOrdered By: SYSTEM SYSTEM on 50-11-9788Nybfjferk/100 WBC (Bld)0.7 %Normal0.0 - 2.0 %Remisol HemeBasophils/Leukocytes Auto (Bld) [Pure # fraction]0.0 E9/LNormal0.0 - 0.2 E9/LRemisol HemeEosinophils (Bld) [#/Vol]0.1 E9/LNormal0.0 - 0.5 E9/LRemisol HemeEosinophils/100 WBC (Bld)1.6 %Normal0.0 - 8.0 %Remisol HemeErythrocyte distribution width (RBC) [Ratio]16.1 %High10.9 - 14.2 %Remisol HemeHematocrit (Bld) [Volume fraction]39.8 %Smaqcy40.7 - 49.0 %Remisol HemeHemoglobin (Bld) [Mass/Vol]13.0 g/dLLow13.5 - 17.5 gm/dLRemisol HemeLymphocytes (Bld) [#/Vol]0.8 E9/LLow1.0 - 4.0 E9/LRemisol HemeLymphocytes/100 WBC (Bld)12.3 %Low14.0 - 50.0 % Remisol HemeMCH (RBC) [Entitic mass]24.9 pgLow27.0 - 34.0 pgRemisol HemeMCHC (RBC) [Mass/Vol]32.7 g/zGZxpzuv49.4 - 36.0 gm/dLRemisol HemeMCV (RBC) [Entitic vol]76.2 fLLow80.0 - 100.0 fLRemisol HemeMonocytes (Bld) [#/Vol]0.5 E9/LNormal 0.2 - 1.0 E9/LRemisol HemeMonocytes/100 WBC (Bld)7.8 %Normal4.0 - 14.0 %Remisol HemeNeutrophils (Bld) [#/Vol]5.3 E9/LNormal2.0 - 7.5 E9/LRemisol Heme Neutrophils/100 WBC (Bld)77.6 %High36.0 - 75.0 %Remisol HemePlatelet mean volume (Bld) [Entitic vol]7.0 fLNormal6.4 - 10.8 fLRemisol HemePlatelets (Bld) [#/Vol] 389.0 E9/WEsbpjs234.0 - 500.0 E9/LRemisol HemeRBC (Bld) [#/Vol]5.2 E12/LNormal 4.3 - 5.9 E12/LRemisol HemeWBC corrected for nucl RBC Auto (Bld) [#/Vol]6.8 E9/L Normal4.0 - 11.0 E9/LRemisol HemeHEMATOLOGYOrdered By: Digna Wagoner on 09-24-2024 ESR (Bld) [Velocity]11 mm/hNormal0 - 19 mm/hrINTEGRIS MIAMI HOSPITAL [facility] HemeAutoSSLab Miscellaneous-LC on 06-50-5946Zivg Fqfs967907Qdhrhol Interpretation [facility] HospitalComment on above:Performed By: #### [id number] #### Domingo [facility] [address], [place] [address]Wnlz NameInterleukin-6Invalid Interpretation [facility] HospitalComment on above:Performed By: #### [id number] #### Domingo [facility] [address], [place] [address]Onuinpevq Laboratory TestingOrdered By: Catalina Holley on 59-87-5005Iwizlo [Moles/Vol]401194 mmol/LInvalid Interpretation CodeINTEGRIS MIAMI HOSPITAL – [facility] SendOutsSSTest NameInterleukin-6Invalid Interpretation CodeINTEGRIS MIAMI HOSPITAL – [facility] SendOutsSSSed Rate Automatedon 76-40-3370Fjh Rate Pqzghcaxr87 mm/hrNormal0-19[facility] MarylandComment on above:Performed By: #### [id number] #### [facility] [address], [place] [address]TJ INJ SHOULDER ARTHROGRAM LEFTon 09-24-2024 Exam Date/Time: [...] Jignesh Rosado MD Transcribed by: SALVADOR Technologist: [facility]ITALRad[facility], Radiologist, - 09/24/2024 Exam Date/Time: 09/24/2024 12:10 EDT [...] Rosado MD Transcribed by: SALVADOR Technologist: LIANNA DAO HealthcareRadiology Study observation (narrative)[facility] Walnut LawnXR INJ SHOULDER ARTHROGRAM LEFTOrdered By: Radiologist Radiology on 04-94-6489MRQH Birst Work Phone: XR Inj Shoulder Arthrogram Lefton 13-82-5663RM Inj Shoulder Arthrogram LeftExam Date/Time: 09/24/2024 12:10 [...] MD Transcribed by: SALVADOR Technologist: [facility] SystemXR Shoulder - left 2 Viewson 39-92-3940Avywkcl Result: AP Grashey and scapular Y-view of the left shoulder taken in the office today does not demonstrate any obvious fracture or displacement of the total shoulder prosthesis essentially unchanged from previous imaging done recently with Dr. Zen RdzCritical access hospitalRadiology Study observation (narrative)[facility] Shoulder - left 2 Viewson 09-07-2024 Imaging Result: Two views, AP/axillary left shoulder(s) taken today and saved to the permanent medical record are reviewed. Slight anterior subluxation of humeral head on axillary view. Grashey appears unchanged compared to previous. No signs of prosthetic wear or loosening. No periprosthetic fractures.[facility] Shoulder - left 2 Viewson 09-05-2024 Radiology Study observation (narrative)[facility] LawnEstimated glomerular filtration rate (GFR) non- Americanon 77-03-3753UJF/1.73 sq M.predicted among non-blacks MDRD (S/P/Bld) [Vol rate/Area]Estimated glomerular filtration rate (GFR) non->=60 mL/min/1.73m [address] [place], [place] [address]GFR/1.73 sq M.predicted among non-blacks MDRD (S/P/Bld) [Vol rate/Area] mL/min/{1.73_m2}>=60 mL/min/1.73m 2FAdams County Regional Medical CenterGlobulin Calc (S) [Mass/Vol]on 44-39-3837Krfgxukf (S) [Mass/Vol]Serum globulin measurement by calculation (mass/volume)[facility] Globulin (S) [Mass/Vol]3.4 g/dLTrumbull Regional Medical CenterLaboratory - Chemistry and Chemistry - challengeon 59-96-1275Ovkjaiz [Mass/Vol]4.3 g/dL 3.4-5.0[facility] CenterALP [Catalytic activity/Vol]60 U/L46-116 [facility] CenterALT [Catalytic activity/Vol]40 U/L16-63 [facility] CenterAST [Catalytic activity/Vol]23 U/L15-37 [facility] CenterBilirubin [Mass/Vol]1.1 mg/dLHigh0.2-1.0 [facility] CenterCalcium [Mass/Vol]9.2 mg/dL8.5-10.1FAdams County Regional Medical CenterChloride [Moles/Vol]101 mmol/Y35-235WbsdvgpeeTrumbull Regional Medical CenterCO2 [Moles/Vol]30.6 mmol/L21.0-32.0[facility] CenterCreatinine [Mass/Vol]0.92 mg/dL0.70-1.30[facility] GFR/1.73 sq M.predicted MDRD (S/P/Bld) [Vol rate/Area]mL/min/{1.73_m2}>=60 mL/min/1.73m 2FAdams County Regional Medical CenterGlucose [Mass/Vol]159 mg/dLHigh 74-106[facility] CenterPotassium [Moles/Vol]3.8 mmol/L3.5-5.1 [facility] CenterProtein [Mass/Vol]7.7 g/dL6.4-8.2FHolmes County Joel Pomerene Memorial Hospitalodium [Moles/Vol]138 mmol/V289-861PqfqywrjkTrumbull Regional Medical CenterUrea nitrogen [Mass/Vol]18.0 mg/dL7.0-18.0[facility] Medical CenterUrea nitrogen/Creatinine [Mass ratio]19.6 mg/mgTrumbull Regional Medical CenterNo Panel Informationon 66-47-7078Xbkoyrvi Specific Antigen Screen 0.91 ng/mL<=4.00Aultman Hospitalerum or plasma albumin/globulin mass ratioon 98-13-8066Yfnkzhg/Globulin [Mass ratio]Serum or plasma albumin/globulin mass ratioTrumbull Regional Medical Center Albumin/Globulin [Mass ratio]1.3 {ratio}[facility]ultman Hospitalerum or plasma anion gap determinationon 66-88-0499Hdvyv gap [Moles/Vol]Serum or plasma anion gap determinationTrumbull Regional Medical CenterAnion gap [Moles/Vol]10.2 mmol/LFAdams County Regional Medical CenterXR Shoulder - left 2 Viewson 92-66-5654Kqfguij Result: 1 views, AP, left shoulder(s) taken today and saved to the permanent medical record are reviewed. Prosthesis is unchanged in position and alignment. No signs of prosthetic wear or loosening. No periprosthetic fractures.Critical access hospitalRadiology Study observation (narrative) [facility] LawnXR Shoulder - left 2 Viewson 98-13-1455Oatufzu Result: Two views, AP/outlet left shoulder(s) taken today and saved to the permanent medical record are reviewed. Prosthesis is unchanged in position and alignment. No signs of prosthetic wear or loosening. No periprosthetic fractures.Critical access hospitalRadiology Study observation (narrative) [facility] LawnSurgical Pathology Reporton [id number] Pathology Report [address] [place] [address]- Surgical Pathology Report Collected Date/Time: 05/22/2024 10:57 EST Pathologist: Yoni PHAM PhD, Wai Mcfarlane Date/Time: 05/22/2024 12:33 EST Zen Rdz DO, DO, Zen Corado Surgical Pathology Report - 05/28/2024 11:16 EST [...] aggregate 3.5 x 2.5 x 1 cm. Steel Placer portion is submitted in two cassettes: 1 - Soft tissue 2 - Bone after decalcification (DC) DC:[facility] Microscopic Description Microscopic examination performed unless gross only specified. This report was transcribed using voice recognition technology and might contain unintended computerized volunteer patient representative errors.[facility] Memorial HospitalComment on above:Performed By: #### [id number] #### Domingo [facility] [address], [place] [address]Mxqaslovtzdg 15-45-8428HmcdhhdughEoxxmqkwqv Patient: CHAVA VASQUEZ JR Age: 53 years Sex: Male : 1970 Associated Diagnoses: None Author: Art PHAM, Son Garcia Postoperative Information Postoperative disposition: Postoperative disposition: To PACU. Optimetrix number: Optimetrix number [id number]. Anesthetic utilized: General. Health Status Allergies: Allergic [...] bed forobservation overnight. Discussed with patient and family.NormalBlanchard Valley Health System Blanchard Valley HospitalBMPon 86-16-9557Lbeea gap [Moles/Vol]10 mmol/LNormal6-16[facility] HospitalComment on above: Performed By: #### [id number] #### [facility] [address], [place] [address]Pqgcser [Mass/Vol]7.5 mg/dLLow8.9-11.1FSelect Medical OhioHealth Rehabilitation HospitalComment on above:Performed By: #### [id number] #### [facility] [address], [place] [address]Gnviqgdp [Moles/Vol]108 mmol/ICyhdeb301-126OxcphvBlanchard Valley Health System [facility] Valley HospitalComment on above:Performed By: #### [id number] #### [facility] [address], [place] [address]VT1 [Moles/Vol]24 mmol/JZgrewy25-82PkggwbBlanchard Valley Health System [facility] Comment on above:Performed By: #### [id number] #### [facility] [address], [place] [address]Urhzzrkpca [Mass/Vol]0.7 mg/dLNormal0.5-1.3FSelect Medical OhioHealth Rehabilitation HospitalComment on above:Performed By: #### [id number] #### [facility] [address], [place] [address]Eskvzzq [Mass/Vol]178 mg/vVVkdgsg13-798KehqieBlanchard Valley Health System [facility] HospitalComment on above:Performed By: #### [id number] #### [facility] [address], [place] [address]Vxcazpfmg [Moles/Vol]3.5 mmol/LNormal3.5-5.3FSelect Medical OhioHealth Rehabilitation HospitalComment on above:Performed By: #### [id number] #### [facility] [address], [place] [address]Zkjgip [Moles/Vol]138 mmol/KDhnild644-887SimkksBlanchard Valley Health System [facility] HospitalComment on above:Performed By: #### [id number] #### [facility] [address], [place] [address]Rzee nitrogen [Mass/Vol]16 mg/dLNormal5-21[facility] HospitalComment on above:Performed By: #### [id number] #### [facility] [address], [place] [address]Lqin nitrogen/Creatinine [Mass ratio]23 No ZjrblAxql43-45DojisoBlanchard Valley Health System [facility] HospitalComment on above:Performed By: #### [id number] #### [facility] [address] [place] [address]GNWca 37-37-4472Abmx nitrogen [Mass/Vol]16 mg/dLNormal5-21 [facility] HospitalComment on above:Performed By: #### [id number] #### [facility] [address] [place] [address]ACM w/ Auto Diffon 93-48-4962Mgujnsfpt/100 WBC (Bld)0.3 %Normal 0.0-2.0[facility] Hospital SouthComment on above:Performed By: #### [id number] #### [facility] [address] [place] [address]Ypzbbical/Leukocytes Auto (Bld) [Pure # fraction]0.0 E9/LNormal 0.0-0.2Fisher Upmc Western MarylandComment on above:Performed By: #### [id number] #### [facility] [address] [place] [address]Pqqakktnmla (Bld) [#/Vol]0.0 E9/LNormal0.0-0.5Fisher [facility]pmc Western MarylandComment on above:Performed By: #### [id number] #### [facility] [address] [place] [address]Jdlvfyujbiy/100 WBC (Bld)0.4 %Normal0.0-8.0[facility] HospitalComment on above:Performed By: #### [id number] #### [facility] [address], [place] [address]Trnttmbqdps distribution width (RBC) [Ratio]15.7 %High10.9-14.2 [facility] HealthcareComment on above:Performed By: #### [id number] #### [facility] [address], [place] [address]Znjvxsntuz (Bld) [Volume fraction]33.6 %Low37.7-49.0NOMS HealthcareComment on above:Performed By: #### [id number] #### [facility] [address] [place] [address]Lcbwkzdtls (Bld) [Mass/Vol]11.2 g/dLLow13.5-17.5FSelect Medical OhioHealth Rehabilitation HospitalComment on above:Performed By: #### [id number] #### [facility] [address] [place] [address]Nxfcehluput (Bld) [#/Vol]0.8 E9/LLow1.0-4.0[facility] HospitalComment on above:Performed By: #### [id number] #### [facility] [address] [place] [address]Kvovwwqkpnt/100 WBC (Bld)8.1 %Low14.0-50.0[facility] Comment on above:Performed By: #### [id number] #### [facility] [address] [place] [address]KOI (RBC) [Entitic mass]26.5 pgLow27.0-34.0[facility] HospitalComment on above:Performed By: #### [id number] #### [facility] [address] [place] [address]ZWIX (RBC) [Mass/Vol]33.5 g/gTPszclr17.4-36.0[facility] HospitalComment on above:Performed By: #### [id number] #### [facility] [address], [place] [address]WRR (RBC) [Entitic vol]79.2 fLLow80.0-100.0[facility] HospitalComment on above:Performed By: #### [id number] #### [facility] [address] [place] [address]Vuvfnbvcm (Bld) [#/Vol]0.9 E9/LNormal0.2-1.0[facility] HospitalComment on above:Performed By: #### [id number] #### [facility] [address] [place] [address]Acazckrvhjm (Bld) [#/Vol]7.9 E9/LHigh2.0-7.5FSelect Medical OhioHealth Rehabilitation HospitalComment on above:Performed By: #### [id number] #### [facility] [address] [place] [address]Vbgoiovmzbe/100 WBC (Bld)81.7 %High36.0-75.0[facility] Comment on above:Performed By: #### [id number] #### [facility] [address] [place] [address]Fumrvdgr361.0 E9/BVatlhj582.0-500.0[facility] Comment on above:Performed By: #### [id number] #### [facility] [address], [place] [address]Ephxuvuq mean volume (Bld) [Entitic vol]7.1 fLNormal6.4-10.8 [facility] HealthcareComment on above:Performed By: #### [id number] #### [facility] [address], [place] [address]UMG (Bld) [#/Vol]4.2 E12/LLow4.3-5.9[facility] Comment on above:Performed By: #### [id number] #### [facility] [address] [place] [address]ZOV corrected for nucl RBC Auto (Bld) [#/Vol]9.7 E9/LNormal 4.0-11.0[facility] HospitalComment on above:Performed By: #### [id number] #### [facility] [address] [place] [address]UOPHSBOUHMgiuyec By: Lab ROPUser on 69-52-1747Xvamgsi [Mass/Vol]161 mg/tRRgka88 - 99 mg/dLINTEGRIS MIAMI HOSPITAL – [place] POC SubsectionPOC [email or web address] Interpretation CodeINTEGRIS MIAMI HOSPITAL – [facility] POC SubsectionSodium [Moles/Vol] [id number] mmol/LInvalid Interpretation CodeINTEGRIS MI[facility]I HOSPITAL [facility] POC SubsectionSodium [Moles/Vol][id number] mmol/LInvalid Interpretation CodeINTEGRIS MIAMI HOSPITAL – [facility] POC SubsectionGlucose [Mass/Vol]168 mg/tXTtro66 - 99 mg/dLINTEGRIS MIAMI HOSPITAL – [place] POC SubsectionPOC UsernamjuneInvalid Interpretation CodeINTEGRIS [facility]OS[facility] POC SubsectionSodium [Moles/Vol] [id number] mmol/LInvalid Interpretation CodeINTEGRIS MI[facility]I HOSPITAL [facility] POC SubsectionSodium [Moles/Vol][id number] mmol/LInvalid Interpretation CodeINTEGRIS MIAMI HOSPITAL – [facility] POC Subsection CHEMISTRYOrdered By: SYSTEM SYSTEM on 70-18-0609Wdoelld [Mass/Vol]7.5 mg/dLLow 8.9 - 11.1 mg/dLRemisol ChemGlucose [Mass/Vol]178 mg/yIDkbsoz98 - 199 mg/dL Remisol ChemTSH Qn0.51 m[IU]/LNormal0.34 - 5.60 mcIU/mLRemisol ChemUrea nitrogen/Creatinine [Mass ratio]23 mg/cxYepf64 - 20Remisol ChemCapillary Glucose POCon 65-41-7804Merhszp [Mass/Vol]161 mg/jATvad36-47NpkdszBlanchard Valley Health System [facility] Comment on above:Performed By: #### [id number] ####[facility] [address] [place], [place] [address]Hraqdbi [Mass/Vol]168 mg/gCKdjr05-88 [facility] HospitalComment on above:Performed By: #### [id number] #### [facility] [address], [place] [address]Hhjunlvsrjkc 37-00-8440Syifpnmzxq [Mass/Vol]0.7 mg/dLNormal 0.5-1.3Fisher [facility]c Western MarylandComment on above:Performed By: #### [id number] #### [facility] [address], [place] [address]VQYG CBC W/ AUTO DIFFon 34-39-0851ZGUBNVVJMBA/100 LEUKOCYTES:NFR:PT:BLD:QN:AUTOMATED COUNT0.4 %0.0 - 8.0 %[facility] EOSINOPHILS:NCNC:PT:BLD:QN:0[facility] BASOPHILS/LEUKOCYTES:NFR.DF:PT:BLD:QN:AUTOMATED LSQDZ4GVUFNortheast Missouri Rural Health Network ERYTHROCYTE MEAN CORPUSCULAR HEMOGLOBIN CONCENTRATION:MCNC:PT:RBC:QN33.5[facility] ERYTHROCYTE MEAN CORPUSCULAR HEMOGLOBIN:ENTMASS:PT:RBC:QN26.5 pg Low27.0 - 34.0 pgNortheast Missouri Rural Health Network ERYTHROCYTE MEAN CORPUSCULAR VOLUME:ENTVOL:PT:RBC:QN:AUTOMATED COUNT79.2 fLLow80.0 - 100.0 fLCleveland Clinic Children's Hospital for Rehabilitation ERYTHROCYTES:NCNC:PT:BLD:QN:AUTOMATED COUNT4.2LV[facility] HEMOGLOBIN:MCNC:PT:BLD:QN:11.2LVander[facility] Rehabilitation [facility] LEUKOCYTES9.7[facility] MONOCYTES:NCNC:PT:BLD:QN:AUTOMATED COUNT0.9[facility] NEUTROPHILS:NCNC:PT:BLD:QN:AUTOMATED COUNT7.9HHayward Area Memorial Hospital - HaywardInterpretation and review of laboratory resultsAbnoMercy Fitzgerald Hospital LYMPHOCYTES:NCNC:PT:BLD:QN:0.8LowCox Walnut LawnPlatelets (Bld) [#/Vol]247 10*3/uLCox Walnut LawnOriginal Ordering Provider: DO Zen AaronMcLeod Health CherawHEMATOLOGYOrdered By: SYSTEM SYSTEM on 18-97-2000Wdfczqlmr/100 WBC (Bld)0.3 %Normal0.0 - 2.0 %Remisol HemeBasophils/Leukocytes [...] pgLow27.0 - 34.0 pgRemisol HemeMCHC (RBC) [Mass/Vol]33.5 g/eYNqurri49.4 - 36.0 gm/dL Remisol HemeMCV (RBC) [Entitic vol]79.2 fLLow80.0 - 100.0 fLRemisol Heme Monocytes (Bld) [#/Vol]0.9 E9/LNormal0.2 - 1.0 E9/LRemisol HemeMonocytes/100 WBC (Bld)9.5 %Normal4.0 - 14.0 %Remisol HemeNeutrophils (Bld) [#/Vol]7.9 E9/LHigh 2.0 - 7.5 E9/LRemisol HemeNeutrophils/100 WBC (Bld)81.7 %High36.0 - 75.0 % Remisol RvhfOwialfdf050.0 E9/WYlykgl314.0 - 500.0 E9/LRemisol HemePlatelet mean volume (Bld) [Entitic vol]7.1 fLNormal6.4 - 10.8 fLRemisol HemeRBC (Bld) [#/Vol] 4.2 E12/LLow4.3 - 5.9 E12/LRemisol HemeWBC corrected for nucl RBC Auto (Bld) [#/Vol]9.7 E9/LNormal4.0 - 11.0 E9/LRemisol HemeInpatient Clinical Summaryon 64-26-6752Rrbnpxuxb Clinical SummaryInpatient Clinical Summary [address] [address] Clinical Summary Person Information: Name: CHAVA VASQUEZ JR Age: 53 Years : 1970 Sex: Male PCP: MAX TUCKER DO Marital Status: Race: White Ethnicity: Non- or Language: Nigerian Visit Id: Visit Reason: OA LEFT SHOULDER Speciality: Acuity: Enc Type: Outpatient in a Bed Med Service: Surgery Arrival: 05/22/2024 07:46:27 Discharge: Dispo Type: Address: [address] [place] [address] [place] [id number] Provider Notes: Diagnosis: 1:Drug-induced myopathy; 4:Controlled type [...] up: With: Address: When: MAX TUCKER [address] [place] [address] Business (1) Within 7 to 10 days, only if needed Comments: Call for followup appointment With: Address: When: [place] [address] Business (1) 06/04/2024 11:15 AM Comments: Appointment has already been scheduled. Call for any problems. Patient Education Information: Post Op Patient Instructions - FT (Custom) (CUSTOM); Shoulder Cryocuff Patient Instructions - FT (CUSTOM); Soumya Rdz - Shoulder Replacement (Custom)[facility] HealthInpatient Patient Summaryon 84-53-3197Pavcetvtx Patient SummaryInpatient Patient Summary CHAVA VASQUEZ JR [...] been scheduled. Call for any problems. Where: [address] [place] [address]- Business (1) Follow Up with MAX TUCKER When: Within 7 to 10 days, only if needed Comments: Call for followup appointment Where: [address] [facility], [place] [address]- Business (1) Medications What How Much When Instructions Next Dose New acetaminophen-oxycodone (Percocet 5 mg-325 mg oral tablet) See instructions 1-2 tab(s) Oral q4hr Pickup at [facility]/pharmacy #6154 as needed New bacitracin/ HC/ neomycin/ polymyxin B ophthalmic (bacitracin/ HC/ neomycin/ polymyxin B Opth Oint) 1 Application Ophthalmic 3 times a day Pickup at [facility]/pharmacy #6177 as prescribed Unchanged alprazolam (alprazolam 0.25 mg Tab) 1 Tablets By Mouth Every 8 hours as needed for anxiety as before Unchanged atorvastatin (atorvastatin 80 mg Tab) 1 Tablets By Mouth Every day 05/23/24 pm Unchanged celecoxib (CeleBREX 200 mg Cap) 1 Capsules By Mouth Every day start after finishing ketorolac Pickup at [facility]/pharmacy #6157 as before/prescribed Unchanged cephalexin (Keflex 500 mg Cap) 1 Capsules By Mouth Every 8 hours Duration: 7 Days Pickup at [facility]/pharmacy #6150 05/23/24 4 pm Unchanged citalopram (CeleXA 20 mg Tab) 1 Tablets By Mouth Every day as before/prescribed Unchanged docusate (Colace 100 mg Cap) 1 Capsules By Mouth 2 times a day as needed for for constipation 05/23/24 pm Unchanged gabapentin (gabapentin 300 mg Cap) 1 Capsules By Mouth 3 times a day Duration: 14 Days Pickup at [facility]/pharmacy #6177 as before Unchanged glimepiride (glimepiride 1 mg Tab) 1.5 Tablets By Mouth Every day as before Unchanged ketorolac (ketorolac 10 mg Tab) 1 Tablets By Mouth Every 8 hours Duration: 3 Days Pickup at [facility]/pharmacy #6177 as prescribed Unchanged metformin-sitagliptin (Janumet 50 mg/ 1000 mg oral tablet) 1 Tablets By Mouth 2 times a day as before Unchanged omeprazole (omeprazole 40 mg Cap-DR) 1 Capsules By Mouth Every day 05/23/24 pm Unchanged sildenafil (sildenafil 100 mg Tab) 1 Tablets By Mouth Every day as needed for erectile dysfunction as before Pharmacy Information [facility]/pharmacy #6177: [address] [place], [place] [id number] [phone] What How Much When Comments Stop Taking etodolac (etodolac 500 mg Tab) 1 Tablets By Mouth 2 times a day Stop Ta (more content not included)...[facility] HospitalInpatient Patient SummaryInpatient Patient Summary [address] [address] Patient Discharge Instructions PERSON INFORMATION Name: CHAVA VASQUEZ JR Date of : 1970 Current Date: 05/23/2024 [...] up: With: Address: When: MAX TUCKER [address] [facility] [place], [place] [id number] Business (1) Within 7 to 10 days, only if needed Comments: Call for followup appointment With: Address: When: Zen Rdz [address] [place], [place] [address]dict [place], [place] [id number] [facility] (1) 06/04/2024 11:15 AM Comments: Appointment has already been scheduled. Call for any problems. In the event that this physician does not participate in your insurance network, please consult with your insurance company to find a nearby participating provider. Comment: ICHRISTINA JR, CHAVA Pugh, have received the attached patient education materials/instructions and have verbalized understanding: Patient Signature Date Clinican/Nurse Signature Date HERE ARE THE MEDICATION CHANGES THAT OCCURRED DURING YOUR HOSPITAL STAY New Medications [id number], [address] [place], [place] [phone], [phone] acetaminophen-oxycodone (Percocet 5 mg-325 mg oral tablet) 1-2 tab(s) Oral q4hr. Refills: 0. Last Dose: Next Dose: bacitracin/HC/neomycin/polymyxin B ophthalmic (bacitracin/HC/neomycin/polymyxin B Opth Oint) 1 Application Ophthalmic 3 times a day. Refills: 0. Last Dose: Next Dose: Medications to Continue with No Changes [facility]/pharmacy #6177, [address], [place] [id number], [phone] celecoxib (CeleBREX 200 mg Cap) 1 Capsules [...] Next Dose: No L (more content not included)...[facility] Interdisciplinary Note - Case Manageron 22-58-5360Xuwrllucpqdmwkmql Note - Case ManagerInterdisciplinary Note - Conveyor Mechanic Patient is awake and alert in bed, previously rounded with Dr. Denton at bedside. Patient is aware of plan to DC home today, will transport, declines any concerns or DC needs. Per PT/OT no DC needs. . PCP verified and insurance information reviewed and DME discussed. Contact information provided and white board updated.[facility] HospitalComment on above:Result Comment: Electronically Signed By: Jennifer FREEMAN, Paola\.br\Date and Time Signed: 05/23/24 10:51 ESTLaboratory - Chemistry and Chemistry - challengeOrdered By: SYSTEM SYSTEM on 43-45-3419Dfuqr gap [Moles/Vol]10 mmol/LNormal6 - 16 mEq/L Remisol ChemChloride [Moles/Vol]108 mmol/FYcgxft153 - 111 mmol/LRemisol ChemCO2 [Moles/Vol]24 mmol/QFtmejr47 - 31 mmol/LRemisol ChemCreatinine [Mass/Vol]0.7 mg/dLNormal0.5 - 1.3 mg/dLRemisol ChemPotassium [Moles/Vol]3.5 mmol/LNormal3.5 - 5.3 mmol/LRemisol ChemSodium [Moles/Vol]138 mmol/YYcnagz583 - 145 mmol/LRemisol ChemUrea nitrogen [Mass/Vol]16 mg/dLNormal5 - 21 mg/dLRemisol ChemLyteson 93-62-5310Hnybb gap [Moles/Vol]10 mmol/LNormal6-16[facility] Comment on above:Performed By: #### [id number] #### [facility] [address], [place] [address]Snxvpdup [Moles/Vol]108 mmol/RPqbeyt546-632YhxqfyBlanchard Valley Health System [facility] HospitalComment on above:Performed By: #### [id number] #### [facility] [address], [place] [address]RJ4 [Moles/Vol]24 mmol/WNfskyb49-04XrzdhlBlanchard Valley Health System [facility] Comment on above:Performed By: #### [id number] #### [facility] [address], [place] [address]Fcgzeiqlz [Moles/Vol]3.5 mmol/LNormal3.5-5.3FSelect Medical OhioHealth Rehabilitation HospitalComment on above:Performed By: #### [id number] #### [facility] [address], [place] [address]Bjojki [Moles/Vol]138 mmol/MYahvbu191-103MwixojBlanchard Valley Health System [facility] HospitalComment on above:Performed By: #### [id number] #### [facility] [address], [place] [address]Fbxg OR Intraoperative Recordon [id number] OR Intraoperative RecordMain OR Intraoperative Record IntraOp Document Type FT Summary Primary Physician: Zen Rdz DO Finalized Date/Time: 05/23/24 14:10:45 Pt. Name: CHAVA VASQUEZ JR/Sex: 1970 Male Med Rec #: [id number] Physician: Zen Rdz DO Financial #: [id number] Pt. Type: O Room/Bed: [place] [address] Admit/Disch: 05/22/24 07:46:27 - 05/23/24 11:40:00 Institution: Case Times FT Entry 1 Patient Times In Room 05/22/24 10:01:00 Out Room 05/22/24 12:24:00 Procedure Times Start 05/22/24 10:39:00 Stop 05/22/24 12:15:00 Anesthesia Times Start 05/22/24 10:01:00 Stop 05/22/24 12:24:00 Block Timeout w/ 05/22/24 09:11:00 Anesthesia Last Modified By: Roseline Lora [...] Entry 2 Entry 3 Case Attendee Roman DECORATOR HAND, Joe Rdz DO, Max Honeycutt CST Role Performed DECORATOR HAND Surgeon - Primary EXECUTIVE SEARCH CONSULTANT/SA Time In 05/22/24 10:01:00 05/22/24 10:30:00 05/22/24 10:01:00 Time Out 05/22/24 12:24:00 05/22/24 12:00:00 05/22/24 12:24:00 Procedure SHOULDER TOTAL SHOULDER TOTAL SHOULDER TOTAL ARTHROPLASTY(Left) ARTHROPLASTY(Left) ARTHROPLASTY(Left) Comments IS SUPERVISING Last Modified By: Roseline Lora Kelsie E Burgderfer, Kelsie E 05/22/24 12:26:35 05/22/24 12:26:35 05/22/24 12:26:35 Entry 4 Entry 5 Entry 6 Case Attendee Roseline Lora LPN, Jack Ray Role Performed Animal Anatomy Teacher - Primary Scrub - Primary Staff - [...] Ed MYLES, Guido Santana Kelsie E, Mc CARMONA, Damaris Alberto, Jack Arellano, Faheem Lee Time Out Complete [...] By: Roseline Lora 05/22/24 (more content not included)...NormalFisher Tyron Medical CenterNo Panel InformationOrdered By: SYSTEM SYSTEM on 80-16-5673bQYK095 mL/min/1.73 c0Xbxoah >=59mL/min/1.73 r8Thhwnoj ChemTSH With T4fr Reflexon 30-93-5820HKD Qn0.51 m[IU]/LNormal0.34-5.60[facility] HospitalComment on above:Performed By: #### [id number] #### [facility] [address], [place] [address]tJZSlr 69-83-0408bOYU782 mL/min/1.73 x6Zdryfd>=59[facility] HospitalComment on above:Performed By: #### [id number] #### [facility] [address], [place] [address]lSGM593 mL/min/1.73 r3Xsiusb>=59[facility] Comment on above:Performed By: #### [id number] #### [facility] [address], [place] [address]HKZ/Rhon 11-41-3904BZC/RhPositiveInvalid Interpretation Code [facility] HospitalComment on above:Performed By: #### [id number] #### [facility] [address] [place] [address]UJN/Rh History Checkon 68-81-4105JOM/Rh History CheckVerified Hx Blood TypeNoSouthern Ohio Medical CenterComment on above:Performed By: #### [id number] #### [facility] [address], [place] [address]EQXMpz 11-22-1088DITM Gel InterpNegativeNoSouthern Ohio Medical CenterComment on above:Performed By: #### [id number] #### [facility] [address], [place] [address]ZHPFB BANKOrdered By: Aurelia Lechuga on 48-85-6263UZY/Rh InterpPositiveInvalid Interpretation CodeINTEGRIS MIAMI HOSPITAL – [facility] BB SubsectionABSC Gel Interp Negative (05/22/24 8:13 AM)NormalINTEGRIS MIAMI HOSPITAL – [facility] BB SubsectionBMPon 98-53-7511Zixhi gap [Moles/Vol]11 mmol/LNormal6-16[facility] HospitalComment on above:Performed By: #### [id number] #### [facility] [address], [place] [address]Dwvpbwo [Mass/Vol]7.5 mg/dLLow8.9-11.1FSelect Medical OhioHealth Rehabilitation HospitalComment on above:Performed By: #### [id number] #### [facility] [address], [place] [address]Mjjchwsr [Moles/Vol]108 mmol/IAgylbm062-489SenveeBlanchard Valley Health System [facility] HospitalComment on above:Performed By: #### [id number] #### [facility] [address], [place] [address]VJ5 [Moles/Vol]22 mmol/OPwwaqe16-52PbkybqBlanchard Valley Health System [facility] Comment on above:Performed By: #### [id number] #### [facility] [address], [place] [address]Zbexzxizaf [Mass/Vol]0.8 mg/dLNormal0.5-1.3FSelect Medical OhioHealth Rehabilitation HospitalComment on above:Performed By: #### [id number] #### [facility] [address], [place] [address]Bzsjdya [Mass/Vol]180 mg/aQHwjqdy19-872NmgcqxBlanchard Valley Health System [facility] HospitalComment on above:Performed By: #### [id number] #### [facility] [address], [place] [address]Xtqnswggp [Moles/Vol]3.6 mmol/LNormal3.5-5.3FSelect Medical OhioHealth Rehabilitation HospitalComment on above:Performed By: #### [id number] #### [facility] [address], [place] [address]Qcgfft [Moles/Vol]137 mmol/SZkxaid580-695LzjsebBlanchard Valley Health System [facility] HospitalComment on above:Performed By: #### [id number] #### [facility] [address], [place] [address]Qcif nitrogen [Mass/Vol]15 mg/dLNormal5-21[facility] HospitalComment on above:Performed By: #### [id number] #### [facility] [address], [place] [address]Vuqq nitrogen/Creatinine [Mass ratio]19 No OnrtaNlfwcw55-42 [facility] HospitalComment on above:Performed By: #### [id number] #### [facility] [address] [place] [address]Jgqib Bank ID#on [id number]#[id number] Interpretation CodeBlanchard Valley Health System [facility] HospitalComment on above:Performed By: #### [id number] #### [facility] [address] [place] [address]CFM w/ Auto Diffon 73-60-2204Mxfr form neutrophils/100 WBC (Bld)10.0 %High0.0-6.0[facility] HospitalComment on above:Performed By: #### [id number] #### [facility] [address] [place] [address] 76194Mybmemlrw (Bld) [#/Vol]0.0 E9/LNormal0.0-0.2FSelect Medical OhioHealth Rehabilitation HospitalComment on above:Performed By: #### [id number] #### [facility] [address] [place] [address] 02407Ldvqghmjqll (Bld) [#/Vol]0.0 E9/LNormal0.0-0.5FSelect Medical OhioHealth Rehabilitation HospitalComment on above:Performed By: #### [id number] #### [facility] [address] [place] [address] 94933Ybztvwbzdkg/100 WBC (Bld)0.0 %Normal0.0-8.0[facility] HospitalComment on above:Performed By: #### [id number] #### [facility] [address] [place] [address] 37299Pbuwlzfltso distribution width (RBC) [Ratio]15.5 %High10.9-14.2 [facility] HospitalComment on above:Performed By: #### [id number] #### [facility] [address] [place] [address] 11401Wlkknihkrt (Bld) [Volume fraction]35.9 %Low37.7-49.0[facility] HospitalComment on above:Performed By: #### [id number] #### [facility] [address] [place] [address] 06905Uaeufinswl (Bld) [Mass/Vol]11.9 g/dLLow13.5-17.5FSelect Medical OhioHealth Rehabilitation HospitalComment on above:Performed By: #### [id number] #### [facility] [address] [place] [address] 30508Tvrtmcprfss (Bld) [#/Vol]0.1 E9/LLow1.0-4.0[facility] HospitalComment on above:Performed By: #### [id number] #### [facility] [address] [place] [address] 80238Akwqrmjubag/100 WBC (Bld)1.0 %Low14.0-50.0[facility] HospitalComment on above:Performed By: #### [id number] #### [facility] [address] [place] [address] 35033BNP (RBC) [Entitic mass]26.4 pgLow27.0-34.0[facility] HospitalComment on above:Performed By: #### [id number] #### [facility] [address] [place] [address] 04266JNWA (RBC) [Mass/Vol]33.1 g/aMIdtmgi30.4-36.0[facility] HospitalComment on above:Performed By: #### [id number] #### [facility] [address] [place] [address] 94701XTJ (RBC) [Entitic vol]79.7 fLLow80.0-100.0[facility] HospitalComment on above:Performed By: #### [id number] #### [facility] [address] [place] [address] 94766Cwmnyulto (Bld) [#/Vol]0.3 E9/LNormal0.2-1.0[facility] HospitalComment on above:Performed By: #### [id number] #### [facility] [address] [place] [address] 57256Njyfhyhhlzi (Bld) [#/Vol]13.3 E9/LInvalid Interpretation Code [facility] HospitalComment on above:Performed By: #### [id number] #### [facility] [address] [place] [address] 06378Aldzpzhi mean volume (Bld) [Entitic vol]7.0 fLNormal6.4-10.8 [facility] HospitalComment on above:Performed By: #### [id number] #### [facility] [address] [place] [address] 77865Bhhpieatx (Bld) [#/Vol]254.0 E9/LGoxtxi691.0-500.0[facility] HospitalComment on above:Performed By: #### [id number] #### [facility] [address] [place] [address] 43968RMT (Bld) [#/Vol]4.5 E12/LNormal4.3-5.9[facility] HospitalComment on above:Performed By: #### [id number] #### [facility] [address] [place] [address] 52997Qipxxlroa neutrophils/100 WBC (Bld)87.0 %High36.0-75.0[facility] HospitalComment on above:Performed By: #### [id number] #### [facility] [address] [place] [address] 85263SMY corrected for nucl RBC Auto (Bld) [#/Vol]13.7 E9/LHigh 4.0-11.0[facility] HospitalComment on above:Performed By: #### [id number] #### [facility]ingo [facility] [address], [place] [address]GHAKVBMDDQsobrwr By: Lab AMANDOUser on 00-64-1491Imtoxzh [Mass/Vol]185 mg/tWVdui95 - 99 mg/dLINTEGRIS MIAMI HOSPITAL – [place] POC SubsectionComment on above:Result Comment: Notified RN/TEJA UsernameSHEPHERDolly, LIANAInvalid Interpretation Code [facility] SubsectionSodium [Moles/Vol][id number] mmol/LInvalid Interpretation CodeINTEGRIS MIAMI HOSPITAL – [place] POC SubsectionSodium [Moles/Vol][id number] mmol/LInvalid Interpretation CodeINTEGRIS MIAMI HOSPITAL – [place] POC SubsectionCHEMISTRYOrdered By: SYSTEM SYSTEM on 67-42-2638Vhiqo gap [Moles/Vol]11 mmol/LNormal6 - 16 mEq/LRemisol ChemCalcium [Mass/Vol]7.5 mg/dL Low8.9 - 11.1 mg/dLRemisol ChemChloride [Moles/Vol]108 mmol/BHoubfh477 - 111 mmol/LRemisol ChemCO2 [Moles/Vol]22 mmol/IAwvkot24 - 31 mmol/LRemisol Chem Creatinine [Mass/Vol]0.8 mg/dLNormal0.5 - 1.3 mg/dLRemisol IdetdMEP852 mL/min/1.73 z1Usdlll>=59mL/min/1.73 g8Qyiuzna ChemGlucose [Mass/Vol]180 mg/dL Ybgsek64 - 199 mg/dLRemisol ChemPotassium [Moles/Vol]3.6 mmol/LNormal3.5 - 5.3 mmol/LRemisol ChemSodium [Moles/Vol]137 mmol/XFsrmqm442 - 145 mmol/LRemisol Chem Urea nitrogen [Mass/Vol]15 mg/dLNormal5 - 21 mg/dLRemisol ChemUrea nitrogen/Creatinine [Mass ratio]19 mg/pxXhligd13 - 20Remisol ChemCapillary Glucose POCon 08-26-0027Hojhwxd [Mass/Vol]185 mg/lVAbio07-38IwpudlBlanchard Valley Health System [facility] HospitalComment on above:Result Comment: Notified RN/MDPerformed By: #### [id number] #### [facility]ingo [facility] [address], [place] [address]Kjiasor [Mass/Vol]200 mg/sQCcev55-80QrcvekBlanchard Valley Health System [facility] Comment on above:Result Comment: Notified RN/MDPerformed By: #### [id number] #### [facility] [address], [place] [address]Psylycg [Mass/Vol]183 mg/dGFuaz78-18YknjsrBlanchard Valley Health System [facility] Comment on above:Performed By: #### [id number] #### [facility] [address], [place] [address]Cngpeiq [Mass/Vol]168 mg/kKFlfd85-11NfkuywBlanchard Valley Health System [facility] Comment on above:Result Comment: Cleaned MeterPerformed By: #### [id number] #### [facility] [address], [place] [address]Iousvzrse Instructionson 68-16-7154Qcubdrmgy Instructions Discharge Instructions CHAVA VASQUEZ JR :1970 [...] been scheduled. Call for any problems. Where: [address] [place] [address]- Business (1) Medications What How Much When Instructions Next Dose New acetaminophen-oxycodone (Percocet 5 mg-325 mg oral tablet) See instructions 1-2 tab(s) Oral q4hr Pickup at [facility]/pharmacy #6177 New celecoxib (CeleBREX 200 mg Cap) 1 Capsules By Mouth Every day start after finishing ketorolac Pickup at [facility]/pharmacy #6177 New cephalexin (Keflex 500 mg Cap) 1 Capsules By Mouth Every 8 hours Duration: 7 Days Pickup at [facility]/pharmacy #6177 New gabapentin (gabapentin 300 mg Cap) 1 Capsules By Mouth 3 times a day Duration: 14 Days Pickup at [facility]/pharmacy #6177 New ketorolac (ketorolac 10 mg Tab) 1 Tablets By Mouth Every 8 hours Duration: 3 Days Pickup at [facility]/pharmacy #6177 Changed docusate (Colace 100 mg Cap) 1 Capsules By Mouth 2 times a day as needed for for constipation Changed docusate (Colace 100 mg Cap) 1 Capsules By Mouth 2 times a day as needed for for constipation Pickup at [facility]/pharmacy #6177 Unchanged alprazolam (alprazolam 0.25 mg Tab) [...] as needed for erectile dysfunction Pharmacy Information [facility]/pharmacy #6177: [address], [place] [id number] [phone] What How Much When Comments Stop Taking [...] [facility] [6191-1-010] 05/22/2024, Unknown - FARIBA: [phone] CORTILOC PEGGED GLENOID 05/22/2024 HUMERAL HEAD LEGAL DOCUMENT SPECIALIST 05/22/2024 HUMERAL HEAD 05/22/2024 US ANATOMIC NUCLEUS 05/22/2024 Education Materials [place], [place] [facility] DISCHARGE INSTRUCTIONS: SHOULDER REPLACEMENT [...] have a responsible (more content not included)...Normal [facility] HospitalComment on above:Result Comment: Electronically Signed By: Loulou Bauer RN\.br\Date and Time Signed: 05/22/24 13:06 [facility] CAPILLARY GLUCOSE POCon 59-75-8107Cydflrg [Mass/Vol]168 mg/qXNlze75 - 99 mg/dL [facility] HealthcareComment on above:Cleaned MeterInterpretation and review of laboratory resultsAbnormalNOMS HealthcareOriginal Ordering Provider: DO Zen PenaHOLDENVILLE GENERAL [facility] HealthcareHEMATOLOGYOrdered By: SYSTEM SYSTEM on 05-22-2024 Band [...] pgLow27.0 - 34.0 pgRemisol HemeMCHC (RBC) [Mass/Vol]33.1 g/jDSpwbxh52.4 - 36.0 gm/dLRemisol HemeMCV (RBC) [Entitic vol]79.7 fLLow80.0 - 100.0 fLRemisol HemeMonocytes (Bld) [#/Vol]0.3 E9/LNormal0.2 - 1.0 E9/LRemisol HemeMonocytes/100 WBC (Bld)2.0 %Low4.0 - 14.0 % Remisol HemeNeutrophils (Bld) [#/Vol]13.3 E9/LInvalid Interpretation CodeRemisol HemePlatelet mean volume (Bld) [Entitic vol]7.0 fLNormal6.4 - 10.8 fLRemisol HemePlatelets (Bld) [#/Vol]254.0 E9/LAcwgjc095.0 - 500.0 E9/LRemisol HemeRBC (Bld) [#/Vol]4.5 E12/LNormal4.3 - 5.9 E12/LRemisol HemeSegmented neutrophils/100 WBC (Bld)87.0 %High36.0 - 75.0 %Remisol HemeWBC corrected for nucl RBC Auto (Bld) [#/Vol]13.7 E9/LHigh4.0 - 11.0 E9/LRemisol HemeInpatient Patient Summaryon [id number] Patient SummaryInpatient Patient Summary [address] [address] [facility] Clinical Discharge Instructions PERSON INFORMATION Name: CHAVA VASQUEZ JR PHYSICIANS Admitting Physician: Zen Rdz DO Attending Physician: Zen Rdz DO PCP: MAX TUCKER DO Discharge Diagnosis: Comment: PATIENT EDUCATION INFORMATION Instructions: Post Op Patient Instructions - FT (Custom) (CUSTOM); Shoulder Cryocuff Patient Instructions - FT (CUSTOM); Soumya Rdz - Shoulder Replacement (Custom) Medication Leaflets: Follow up: With: Address: When: Zen Rdz [address] [place] [address] [facility] (1) 06/04/2024 11:15 AM Comments: Appointment has already been scheduled. Call for any problems. MEDICATION LIST New Medications [facility]/pharmacy #2209, [address], [place] [phone], [phone] acetaminophen-oxycodone (Percocet 5 mg-325 mg oral tablet) [...] Medications to Continue Taking That Have Changed [facility]/pharmacy #6140, [address], [place] [id number], [phone] START: docusate (Colace 100 mg Cap) 1 [...] pain. with food or milk. Refills: 0. Comment:[facility] HospitalInpatient Patient SummaryInpatient Patient Summary [place] [address] [facility] Clinical Discharge Instructions PERSON INFORMATION Name: CHAVA VASQUEZ JR PHYSICIANS Admitting Physician: Zen Rdz DO Attending Physician: Zen Rdz DO PCP: MAX TUCKER DO Discharge Diagnosis: Comment: PATIENT EDUCATION INFORMATION Instructions: Soumya Rdz - Shoulder Replacement (Custom) Medication Leaflets: Follow up: MEDICATION LIST New Medications [facility]/pharmacy #6111, [address], [place] [phone], [phone] acetaminophen-oxycodone (Percocet 5 mg-325 mg oral tablet) [...] Medications to Continue Taking That Have Changed [facility]/pharmacy #6181, [address], [place] [id number], [phone] START: docusate (Colace 100 mg Cap) 1 [...] pain. with food or milk. Refills: 0. Comment:[facility] HospitalMain OR Intraoperative Recordon [id number] OR Intraoperative RecordMain OR Intraoperative Record IntraOp Document Type FT Summary Primary Physician: Zen Rdz DO Finalized Date/Time: 05/22/24 12:26:52 Pt. Name: CHRISTINA MEJIA, CHAVA Lexy Woodruff/Sex: 1970 Male Med Rec #: [id number] Physician: Zen Rdz DO Financial #: [id number] Pt. Type: A Room/Bed: [place] [address] Admit/Disch: 05/22/24 07:46:27 - Institution: Case Times FT Entry 1 Patient Times In Room 05/22/24 10:01:00 Out Room 05/22/24 12:24:00 Procedure Times Start 05/22/24 10:39:00 Stop 05/22/24 12:15:00 Anesthesia Times Start 05/22/24 10:01:00 Stop 05/22/24 12:24:00 Block Timeout w/ 05/22/24 09:11:00 Anesthesia Last Modified By: Roseline Lora [...] Attendee Joe Owens CRNA, DO, Jason A Wilhelm CST, Benjamin Role Performed DECORATOR HAND Surgeon - Primary EXECUTIVE SEARCH CONSULTANT/SA Time In 05/22/24 10:01:00 05/22/24 10:30:00 05/22/24 10:01:00 Time Out 05/22/24 12:24:00 05/22/24 12:00:00 05/22/24 12:24:00 Procedure SHOULDER TOTAL SHOULDER TOTAL SHOULDER TOTAL ARTHROPLASTY(Left) ARTHROPLASTY(Left) ARTHROPLASTY(Left) Comments IS SUPERVISING Last Modified By: Roseline Lora Kelsie E Burgderfer, Kelsie E 05/22/24 12:26:35 05/22/24 12:26:35 05/22/24 12:26:35 Entry 4 Entry 5 Entry 6 Case Attendee Roseline Lora LPN, Jack Ray Role Performed Animal Anatomy Teacher - Primary Scrub - Primary Staff - [...] DO, Wilhelm CST, Guido Santana Kelsie E, Kipp PARTY PLAN SALESPERSON, Damaris Alberto, Jack Arellano Troike, Kendall R [...] symptoms of in (more content not included)... [facility] HospitalMain OR PACU I Recordon [id number] OR PACU I RecordMain OR PACU I Record PACU Phase I Document Type FT Summary Primary Physician: Zen Rdz DO Finalized Date/Time: 05/22/24 17:00:18 Pt. Name: CHAVA VSAQUEZ JR/Sex: 1970 Male Med Rec #: [id number] Physician: Zen Rdz DO Financial #: [id number] Pt. Type: O Room/Bed: Admit/Disch: 05/22/24 07:46:27 [...] Signatures Signed By: Charmaine Day I 05/22/24 17:00[facility] HospitalMain OR Preoperative Recordon [id number] OR Preoperative RecordMain OR Preoperative Record PreOp Document Type FT Summary Primary Physician: Zen Rdz DO Finalized Date/Time: 05/22/24 10:44:49 Pt. Name: CHAVA VASQUEZ JR /Sex: 1970 Male Med Rec #: [id number] Physician: Zen Rdz DO Financial #: [id number] Pt. Type: A Room/Bed: [facility] Admit/Disch: 05/22/24 07:46:27 - Institution: Case Times [...] Roseline Lora 05/22/24 10:44 Roseline Lora 05/22/24 10:44Normal [facility] HospitalOperative Reporton [id number] Report Operative Report Patient: CHAVA VASQUEZ JR Age: 53 years Sex: Male : 1970 Associated Diagnoses: None Author: Zen Rdz DO DATE OF SURGERY: 05/22/2024 SURGEON: Zen Rdz D.O. C CONSULTANT: Domingo Ward CFA PREOPERATIVE DIAGNOSIS: Advanced glenohumeral osteoarthrosis, left shoulder POSTOPERATIVE DIAGNOSIS: Advanced glenohumeral osteoarthrosis, left shoulder OPERATION: 1. Left anatomic total shoulder arthroplasty (CPT code 23104) 2. Biceps tenodesis, left shoulder (CPT code 03993) ANESTHESIA: General with a regional block ANESTHESIOLOGIST: Joe Owens CRNA and Son Cordova MD IMPLANTS USED: 1. Tornier Perform Anatomic CortiLoc Pegged Glenoid, size L40 2. Tornier Perform stemless size 3 nucleus, centered humeral head reclaimer, 48 x 18 mm humeral head OPERATIVE INDICATIONS: Chava is a 53-year-old jjpfa-joar-grdlgctz male who has had progressively worsening pain [...] details. Presurgical planning was performed with the CallFire software and a patient-specific 3D guide was [...] then turned to pre (more content not included)...[facility] HospitalComment on above:Result Comment: Electronically Signed By: Zen Rdz DO\.br\Date and Time Signed: 05/22/24 13:17 ESTOutpatient Surgery Discharge Instructionon [id number] Surgery Discharge Instruction Outpatient Surgery Discharge Instruction [place] [id number] Patient Discharge Instructions PERSON INFORMATION Name: CHAVA [...] TO THE NEAREST EMERGENCY ROOM OR CALL 361 I, CHAVA VASQUEZ JR, have received the attached patient education materials/instructions and have verbalized understanding: May we do a follow up call? Yes No I was present when discharge instructions were given Patient Signature Date Clinican/Nurse Signature Date Follow up: With: Address: When: Zen [facility] [place] [address] [facility] (1) 06/04/2024 11:15 AM Comments: Appointment has already been scheduled. Call for any problems. Pharmacy Information: You may receive a survey from [employer] asking you to rate your care experience. Your feedback is important and will help us understand what we do well and how we can improve the quality of care we provide to you, your loved ones and our community. It???s an honor to serve you. Thank you for choosing [facility] HERE ARE THE MEDICATION CHANGES THAT OCCURRED DURING YOUR HOSPITAL STAY New Medications [facility], [address] [facility] [place] [phone], [phone] acetaminophen-oxycodone (Percocet 5 mg-325 mg oral tablet) [...] Medications to Continue Taking That Have Changed [facility]/pharmacy #6126, [address], [place] [phone], [phone] START: docusate (Colace 100 mg Cap) 1 [...] milk. Refills: 0. PATIENT EDUCATION INFORMATION Instructions: [place], [place] [facility] DISCHARGE INSTRUCTIONS: SHOULDER REPLACEMENT [...] day until follow up. (more content not included)...[facility] HospitalOutpatient Surgery Discharge InstructionOutpatient Surgery Discharge Instruction [place] [address] Patient Discharge Instructions PERSON INFORMATION Name: CHRISTINA MEJIACHAVA Lexy Date of : 1970 Current Date: 05/22/2024 [...] Information: You may receive a survey from [employer]are[employer] asking you to rate your care experience. Your feedback is important and will help us understand what we do well and how we can improve the quality of care we provide to you, your loved ones and our community. It???s an honor to serve you. Thank you for choosing [facility] HERE ARE THE MEDICATION CHANGES THAT OCCURRED DURING YOUR HOSPITAL STAY New Medications [facility], [address], [place] [phone], [phone] acetaminophen-oxycodone (Percocet 5 mg-325 mg oral tablet) [...] Medications to Continue Taking That Have Changed [facility], [address], [place] [phone], [phone] START: docusate (Colace 100 mg Cap) 1 [...] milk. Refills: 0. PATIENT EDUCATION INFORMATION Instructions: [place] [place] [facility] DISCHARGE INSTRUCTIONS: SHOULDER REPLACEMENT [...] Driving is legal, however, (more content not included)...[facility] HospitalProtyler holmes memorial hospitaluralon [id number] Patient: CHAVA VASQUEZ JR Age: 53 years Sex: Male : 1970 Associated Diagnoses: None Author: Son Cordova MD Postoperative Information Postoperative disposition: Postoperative disposition: To PACU. Optimetrix number: Optimetrix number [id number]. Anesthetic utilized: General. Health Status Allergies: Allergic [...] bed forobservation overnight. Discussed with patient and family.[facility] HospitalProceduralProcedural Patient: CHAVA VASQUEZ JR Age: 53 years Sex: Male : 1970 Associated Diagnoses: None Author: Son Cordova MD Postoperative Information Postoperative disposition: Postoperative disposition: To PACU. Optimetrix number: Optimetrix number [id number]. Anesthetic utilized: General. Health Status Allergies: Allergic [...] meets criteria ( From PACU to floor ).[facility] HospitalProceduralProcedural Patient: CHAVA VASQUEZ JR Age: 53 years Sex: Male : 1970 Associated Diagnoses: None Author: Art PHAM, Son Garcia Procedure Nerve Block Block Type: Interscalene block. [...] Using maximal sterile barrier technique per current [facility] guidelines including hand hygeine, Guidance (Ultrasound used [...] Complications: The patient tolerated the procedure as expected.[facility] HospitalXR SHOULDER COMPLETE LEFTon 05-22-2024 Exam Date/Time: [...] FINAL REPORT Dictated: 05/22/2024 2:31 pm Chava Robetr DO Signed (Electronic Signature): 05/22/2024 2:31 pm Signed by: Chava Robert DO Transcribed by: SALVADOR Technologist: CASSANDRAINTEGRIS MIAMI HOSPITAL – MIAMIRadiology, Radiologist, MD - 05/22/2024 Exam Date/Time: 05/22/2024 [...] Chava Robert DO Transcribed by: SALVADOR Technologist: CARRINGTON TRUJILLO HealthcareRadiology Study observation (narrative)[facility] LawnXR SHOULDER COMPLETE LEFTOrdered By: Radiologist Radiology on [id number] Birst Work Phone: XR Shoulder Complete Lefton [id number] Shoulder Complete LeftExam Date/Time: 05/22/2024 12:43 EST [...] Robert DO Transcribed by: SALVADOR Technologist: Mauricio TRUJILLOBlanchard Valley Health System [facility] HospitaleGFRon 57-85-9083gUMH626 mL/min/1.73 h7Gbnlkh>=59[facility] HospitalComment on above:Performed By: #### [id number] #### Lane [facility] [address], [place] [id number] UPPER EXTREMITY W/O CONTRAST LEFTon 05-02-2024 Exam [...] Chava Robert DO Transcribed by: SALVADOR Technologist: STEFANOLupilloiology, Radiologist, - 05/02/2024 Exam Date/Time: 04/30/2024 14:05 [...] Robert DO Transcribed by: SALVADOR Technologist: JOEY GODDARD MEMORIAL HOSPITALKatina PeresNJ UPPER EXTREMITY W/O CONTRAST LEFTOrdered By: Radiologist Radiology on [id number] Birst Work Phone: ct Upper Extremity w/o Contrast Lefton [id number] Upper Extremity w/o Contrast LeftExam Date/Time: 04/30/2024 [...] Chava Robert DO Transcribed by: SALVADOR Technologist: [facility] Medical CenterABO/Rh Retypeon 62-55-7238EMR/Rh Retype InterpPositiveInvalid Interpretation [facility] Memorial HospitalComment on above:Performed By: #### [id number] #### [facility] [address], [place] [address]STJpk 15-22-3658Hsfdt gap [Moles/Vol]10 mmol/LNormal6-16[facility] HospitalComment on above:Performed By: #### [id number] #### [facility] [address], [place] [address]Lungsfz [Mass/Vol]9.5 mg/dLNormal8.9-11.1FSelect Medical OhioHealth Rehabilitation HospitalComment on above:Performed By: #### [id number] #### [facility] [address], [place] [address]Huvrmsar [Moles/Vol]103 mmol/RUaetpu836-000KhnciyBlanchard Valley Health System [facility] HospitalComment on above:Performed By: #### [id number] #### [facility] [address], [place] [address]IC0 [Moles/Vol]30 mmol/TCvzqwh77-07LwzruuBlanchard Valley Health System [facility] Comment on above:Performed By: #### [id number] #### [facility] [address], [place] [address]Mwykyhtela [Mass/Vol]0.9 mg/dLNormal0.5-1.3FSelect Medical OhioHealth Rehabilitation HospitalComment on above:Performed By: #### [id number] #### [facility] [address], [place] [address]Ekqlxkv [Mass/Vol]63 mg/gECctcgv50-126CawxdkBlanchard Valley Health System [facility] HospitalComment on above:Performed By: #### [id number] #### [facility] [address], [place] [address]Twqajxjnd [Moles/Vol]4.3 mmol/LNormal3.5-5.3FSelect Medical OhioHealth Rehabilitation HospitalComment on above:Performed By: #### [id number] #### [facility] [address], [place] [address]Dezfcp [Moles/Vol]139 mmol/EFdycbl429-521ZwtbweBlanchard Valley Health System [facility] Valley HospitalComment on above:Performed By: #### [id number] #### [facility] [address] [place] [address] 28873Mqix nitrogen [Mass/Vol]18 mg/dLNormal5-21[facility] HospitalComment on above:Performed By: #### [id number] #### [facility] [address] [place] [address] 20634Ddhb nitrogen/Creatinine [Mass ratio]20 No NtdiuWeygbj54-74 [facility] HospitalComment on above:Performed By: #### [id number] #### [facility] [address] [place] [address] 29702VEH w/ Auto Diffon 81-19-2763Rfmgkmmxr/100 WBC (Bld)0.4 %Normal 0.0-2.0[facility] HospitalComment on above:Performed By: #### [id number] #### [facility] [address] [place] [address] 90149Uujmjqfem/Leukocytes Auto (Bld) [Pure # fraction]0.0 E9/LNormal 0.0-0.2FSelect Medical OhioHealth Rehabilitation HospitalComment on above:Performed By: #### [id number] #### [facility] [address], [place] [address]Vpfqbhtfhzi (Bld) [#/Vol]0.1 E9/LNormal0.0-0.5FSelect Medical OhioHealth Rehabilitation HospitalComment on above:Performed By: #### [id number] #### [facility] [address], [place] [address]Tgnltrcmhtc/100 WBC (Bld)1.2 %Normal0.0-8.0[facility] HospitalComment on above:Performed By: #### [id number] #### [facility] [address], [place] [address]Pcxtkmcbmpz distribution width (RBC) [Ratio]15.2 %High10.9-14.2 [facility] HospitalComment on above:Performed By: #### [id number] #### [facility] [address] [place] [address] 43590Qfonbfhbxn (Bld) [Volume fraction]40.9 %Dsigjr00.7-49.0[facility] HospitalComment on above:Performed By: #### [id number] #### [facility] [address] [place] [address] 806[address]Aizhalmqlv (Bld) [Mass/Vol]13.6 g/qNNjwbva02.5-17.5FSelect Medical OhioHealth Rehabilitation HospitalComment on above:Performed By: #### [id number] #### [facility] [address] [place] [address] 327[address]Lakjdqgtwbw (Bld) [#/Vol]1.5 E9/LNormal1.0-4.0[facility] HospitalComment on above:Performed By: #### [id number] #### [facility] [address], [place] [address]Pkfzkngstyd/100 WBC (Bld)16.1 %Qifrby66.0-50.0[facility] HospitalComment on above:Performed By: #### [id number] #### [facility] [address], [place] [address]KSF (RBC) [Entitic mass]26.7 pgLow27.0-34.0[facility] HospitalComment on above:Performed By: #### [id number] #### [facility] [address] [place] [address] 51727XANY (RBC) [Mass/Vol]33.3 g/cIZflmyq37.4-36.0[facility] HospitalComment on above:Performed By: #### [id number] #### [facility] [address] [place] [address] 615[address]UNP (RBC) [Entitic vol]80.1 pUKawrtb30.0-100.0[facility] HospitalComment on above:Performed By: #### [id number] #### [facility] [address] [place] [address] 776[address]Mrxpzjgoe (Bld) [#/Vol]0.7 E9/LNormal0.2-1.0[facility] HospitalComment on above:Performed By: #### [id number] #### [facility] [address] [place] [address] 93[address]Tclllsrlmxl (Bld) [#/Vol]6.9 E9/LNormal2.0-7.5FSelect Medical OhioHealth Rehabilitation HospitalComment on above:Performed By: #### [id number] #### [facility] [address] [place] [address] 11833Obisaeenubd/100 WBC (Bld)75.1 %High36.0-75.0[facility] HospitalComment on above:Performed By: #### [id number] #### [facility] [address] [place] [address]Paevzfts mean volume (Bld) [Entitic vol]7.3 fLNormal6.4-10.8 [facility] HospitalComment on above:Performed By: #### [id number] #### [facility] [address] [place] [address] 23212Cmdgxfxhw (Bld) [#/Vol]344.0 E9/GNavomi922.0-500.0[facility] HospitalComment on above:Performed By: #### [id number] #### [address] [facility] [address], [place] [address]YXZ (Bld) [#/Vol]5.1 E12/LNormal4.3-5.9[facility] HospitalComment on above:Performed By: #### [id number] #### [facility] [address], [place] [address]CLV corrected for nucl RBC Auto (Bld) [#/Vol]9.1 E9/LNormal 4.0-11.0[facility] HospitalComment on above:Performed By: #### [id number] #### [facility] [address], [place] [address]RPSMVGXIFYyyvvby By: Sheila Tejeda on 39-00-2226Yhces gap [Moles/Vol]10 mmol/LNormal6 - 16 mEq/LRemisol ChemCalcium [Mass/Vol]9.5 mg/dL Normal8.9 - 11.1 mg/dLRemisol ChemChloride [Moles/Vol]103 mmol/LPrsrjy961 - 111 mmol/LRemisol ChemCO2 [Moles/Vol]30 mmol/UBbnqpk63 - 31 mmol/LRemisol Chem Creatinine [Mass/Vol]0.9 mg/dLNormal0.5 - 1.3 mg/dLRemisol SgljpWOS856 mL/min/1.73 e7Mbwcyh>=59mL/min/1.73 p3Lalmxlc ChemGlucose [Mass/Vol]63 mg/dL Sovtzm20 - 199 mg/dLRemisol ChemPotassium [Moles/Vol]4.3 mmol/LNormal3.5 - 5.3 mmol/LRemisol ChemSodium [Moles/Vol]139 mmol/AYlfbuz612 - 145 mmol/LRemisol Chem Urea nitrogen [Mass/Vol]18 mg/dLNormal5 - 21 mg/dLRemisol ChemUrea nitrogen/Creatinine [Mass ratio]20 mg/khJbvyiz98 - 20Remisol ChemCHEMISTRY Ordered By: Tanmay Ornelas on 45-71-1176GnL6d (Bld) [Mass fraction]7.4 %High<=5.9% [facility] ChemAutoSSCT UPPER EXTREMITY W/O CONTRAST LEFTon 14-57-3027Iesojudgf Study observation (narrative)NOMS HealthcareHEMATOLOGYOrdered By: SYSTEM SYSTEM on 63-68-3149Oflwrnlcb/100 WBC (Bld)0.4 %Normal0.0 - 2.0 %Remisol Heme Basophils/Leukocytes Auto (Bld) [Pure # fraction]0.0 E9/LNormal0.0 - 0.2 E9/L Remisol HemeEosinophils (Bld) [#/Vol]0.1 E9/LNormal0.0 - 0.5 E9/LRemisol Heme Eosinophils/100 WBC (Bld)1.2 %Normal0.0 - 8.0 %Remisol HemeErythrocyte distribution width (RBC) [Ratio]15.2 %High10.9 - 14.2 %Remisol HemeHematocrit (Bld) [Volume fraction]40.9 %Rswpjl81.7 - 49.0 %Remisol HemeHemoglobin (Bld) [Mass/Vol]13.6 g/cOEyydgd88.5 - 17.5 gm/dLRemisol HemeLymphocytes (Bld) [#/Vol] 1.5 E9/LNormal1.0 - 4.0 E9/LRemisol HemeLymphocytes/100 WBC (Bld)16.1 %Normal 14.0 - 50.0 %Remisol HemeMCH (RBC) [Entitic mass]26.7 pgLow27.0 - 34.0 pgRemisol HemeMCHC (RBC) [Mass/Vol]33.3 g/zTEokdaj85.4 - 36.0 gm/dLRemisol HemeMCV (RBC) [Entitic vol]80.1 wQJmmbhn59.0 - 100.0 fLRemisol HemeMonocytes (Bld) [#/Vol]0.7 E9/LNormal0.2 - 1.0 E9/LRemisol HemeMonocytes/100 WBC (Bld)7.2 %Normal4.0 - 14.0 %Remisol HemeNeutrophils (Bld) [#/Vol]6.9 E9/LNormal2.0 - 7.5 E9/LRemisol Heme Neutrophils/100 WBC (Bld)75.1 %High36.0 - 75.0 %Remisol HemePlatelet mean volume (Bld) [Entitic vol]7.3 fLNormal6.4 - 10.8 fLRemisol HemePlatelets (Bld) [#/Vol] 344.0 E9/GJomthp950.0 - 500.0 E9/LRemisol HemeRBC (Bld) [#/Vol]5.1 E12/LNormal 4.3 - 5.9 E12/LRemisol HemeWBC corrected for nucl RBC Auto (Bld) [#/Vol]9.1 E9/L Normal4.0 - 11.0 E9/LRemisol JmzpSkwO2nqs 02-05-7325VrB7r (Bld) [Mass fraction] 7.4 %High<=5.9[facility] HospitalComment on above:Performed By: #### [id number] #### [facility] [address] [place] [address] 7[address]ND WITH CULT RFLXon 65-99-8717KMTXGSGWX:PRTHR:PT:URINE:ORD:TEST STRIP.AUTOMATED2+AbnormalNegative mg/dLNortheast [facility] CLARITY:TYPE:PT:URINE:NOM:ClearClearN[facility] CLASS:TYPE:PT:URINE COLLECTION METHOD:NOM:*Clean CatchNortheast [facility] COLOR:TYPE:PT:URINE:NOM:AUTOLight-YellowYellowCox Walnut LawnComment on above: Microscopic readings are only performed on those samples that meet specific criteria set forth by [facility] PH:LSCNC:PT:URINE:QN:TEST STRIP6.55.0 - 9.0[facility] SPECIFIC GRAVITY:RDEN:PT:URINE:QN:TEST STRIP1.0121.005 - 1.030[facility] GLUCOSE:PRTHR:PT:URINE:ORD:TEST STRIPNegativeNegative mg/dLCox Walnut Lawn HEMOGLOBIN:MCNC:PT:URINE:SEMIQN:TEST STRIP.AUTOMATEDNegativeNegative mg/dLJORDAN VALLEY MEDICAL CENTER HealthcareInterpretation and review of laboratory resultsAbnormLankenau Medical Center KETONES:PRTHR:PT:URINE:ORD:TEST STRIP.AUTOMATEDNegativeNegative mg/dLJORDAN VALLEY MEDICAL CENTER HealthcareLEUKOCYTE ESTERASE:PRTHR:PT:URINE:ORD:TEST STRIP.AUTOMATEDNegative Negative CD:[id number] HealthcareNITRITE:PRTHR:PT:URINE:ORD:TEST STRIP.AUTOMATEDNegativeNegative mg/dLNOMS Healthcare PROTEIN:PRTHR:PT:URINE:ORD:TEST STRIPNegativeNegative mg/dLNOMS Healthcare UROBILINOGEN:MCNC:PT:URINE:SEMIQN:TEST STRIPNegativeNegative mg/dLNOWV HealthcareOriginal Ordering Provider: DO Zen Taylor [facility] SouthUA with Cult Rflxon 02-87-1045Slzoosmso Ql (U)2+ mg/dLAbnormalNegativeBlanchard [facility] HospitalComment on above:Performed By: #### [id number] #### [facility] [address], [place] [address]Pxuwimo (U)ClearNormalClearBlanchard [facility] HospitalComment on above:Performed By: #### [id number] #### [facility] [address], [place] [address]Tmpec (U)Light-YellowNormalYellowBlanchard Valley Health System [facility] on above:Result Comment: Microscopic readings are only performed on those samples that meet specific criteria set forth by [facility].Performed By: #### [id number] #### [facility] [address], [place] [address]Havdmym Ql (U)NegativermalNegCleveland Clinic Akron General Comment on above:Performed By: #### [id number] #### [facility] [address], [place] [address]Swdrwwlzqd Auto test strip (U) [Mass/Vol]NegativeNormalNegative [facility] HospitalComment on above:Performed By: #### [id number] #### [facility] [address], [place] [address]Uhoekoe Auto test strip Ql (U)NegativeNormalNegativeBl[facility]ard [facility] HospitalComment on above:Performed By: #### [id number] #### [facility] [address] [place] [address]Yulhydzpe esterase Auto test strip Ql (U)NegativeNormalNegative [facility] HospitalComment on above:Performed By: #### [id number] #### [facility] [address] [place] [address]Eogfawk Auto test strip Ql (U)NegativeNormalNegCleveland Clinic Akron GeneralComment on above:Performed By: #### [id number] #### [facility] [address] [place] [address] 95821mI (U)6.5 [pH]Invalid Interpretation Code5.0-9.0[facility] HospitalComment on above:Performed By: #### [id number] #### [facility] [address] [place] [address]74[address]Wvybipg Ql (U)NegativermalNegCleveland Clinic [facility] General Comment on above:Performed By: #### [id number] #### [facility] [address] [place] [address] 055[address]Rjljznmx gravity (U) [Rel density]1.012Invalid Interpretation Code1.005-1.030[facility] HospitalComment on above:Performed By: #### [id number] #### [facility] [address] [place] [address]Gnuzmshwtwvq (U) [Mass/Vol]NegativeNormalNegCleveland Clinic Akron GeneralComment on above:Performed By: #### [id number] #### [facility] [address] [place] [address]Ypfb of Urine collection methodClean CatchNoSouthern Ohio Medical CenterComment on above:Performed By: #### [id number] #### [facility] [address] [place] [address] 714[address]ECNSKAAABKRpbnhvf By: SYSTEM SYSTEM on 92-91-7718Fxhwlftdi Ql (U)2+ mg/dLInvalid Interpretation CodeNegativemg/dLINTEGRIS [facility] UA Auto SSClarity (U) Clear (04/30/24 1:42 PM)NormalClearFLINDSAY [facility] UA Auto SSColor (U)Light-Yellow 1 (04/30/24 1:42 PM)NormalYellowINTEGRIS MIAMI HOSP[facility] [place] UA Auto SSComment on above:Interpretive Data: Microscopic readings are only performed on those samples that meet specific criteria set forth by [facility].Glucose Ql (U) NegativeNormalNegativemg/dLINTEGRIS [facility] UA Auto SSHemoglobin Auto test strip (U) [Mass/Vol]NegativeNormalNegativemg/dLINTEGRIS [facility]OSP[facility] UA Auto SSKetones Auto test strip Ql (U)NegativeNormalNegativemg/dLINTEGRIS [facility]OS[facility] UA Auto SSLeukocyte esterase Auto test strip Ql (U)NegativeNormalNegativeLeu/uLINTEGRIS [facility]I [facility]OS[facility] UA Auto SSNitrite Auto test strip Ql (U) NegativeNormalNegativemg/dLINTEGRIS [facility]OS[facility] [place]A Auto SSpH (U)6.5 *NA* (04/30/24 1:42 PM)Invalid Interpretation Code5.0 - 9.0[facility] UA Auto SSProtein Ql (U)NegativeNormalNegativemg/dLINTEGRIS [facility]I [facility]OSPITAL [facility] [place] UA Auto SSSpecific gravity (U) [Rel density] 1.012 *NA* (04/30/24 1:42 PM)Invalid Interpretation Code1.005 - 1.030[facility] UA Auto SS Urobilinogen (U) [Mass/Vol]NegativeNormalNegativemg/dLINTEGRIS [facility]OSP[facility]A Auto SSURINALYSIS Ordered By: Marissa White on 94-62-9838CS Spec DescClean Catch (04/30/24 1:42 PM)NormalINTEGRIS [facility]I HOSP[facility] UA Auto SSXR Chest 2 Viewson 83-10-7187DP Chest 2 ViewsExam Date/Time: 04/30/2024 13:59 EST [...] Chava Robert DO Transcribed by: SALVADOR Technologist: OttoBlanchard Valley Health System [facility] HospitaleGFRon 06-73-1871xJAM305 mL/min/1.73 p5Fkwwnt>=59Fisher [facility]pmc Western MarylandComment on above:Performed By: #### [id number] #### [facility] [address], [place] [address]XmF6l (Bld) [Mass fraction]on 84-38-1441Vsegdkjkkcrmsd and review of laboratory resultsNormFirst Hospital Wyoming Valley HealthcareLaboratory - Hematology and Cell countson 13-07-0330LkY7c (Bld) [Mass fraction]7.2 %NOMS UsgdnngafxBfV0j (Bld) [Mass fraction]on 11-03-8464Jruxcgudwmvxub and review of laboratory resultsNormAurora Medical CenterLaboratory - Hematology and Cell countson 34-55-8615SxU3b (Bld) [Mass fraction]7.6 %NOMS HealthcareANA Antinuclear Antibodieson 18-51-7371Tcdichaosrw Abs, IFANegativeNormal.[facility] Access Hospital Physician GroupComment on above:Result Comment: Negative <1:80 Borderline 1:80 Positive >1:80 ICAP nomenclature: AC-0 For more information about Hep-2 cell patterns use ANApatterns.org, the official website for the International Consensus on Antinuclear Antibody (TONJA) Patterns (ICAP). Performed at: - [facility] [address] [id number] Book Jacket Cover Machine Operator: Scott Freedman PhD, Phone: [phone] By: #### PP, ESR, CK, ADDONUAPLUS, CRP, CMP, TSH3, CBC, T4F #### [facility] [address] [place] [address] #### ALDOLASE, FRANCISCO,URINE, UPE RAND, SPE, RPR W RFX, FRANCISCO SERUM #### [facility] ,Activated partial thromboplastin time (aPTT) in platelet poor plasma by coagulation aOrdered By: Rajan Moreland on 05-04-3566mBHR Coag (PPP) [Time]25.9 s25.1-36.5FAdams County Regional Medical CenterComment on above:A hematocrit value greater than 55% may lead to inaccurate results in coagulation testing. Patients having hematocrit values >55% require a special collection tube for coagulation studies. Please contact the laboratory at [phone] for redraw instructions. Alanine aminotransferase [Enzymatic activity/volume] in Serum or PlasmaOrdered By: Rajan Moreland on 13-96-0585DGH [Catalytic activity/Vol]33 U/L7-52[facility] CenterComment on above:Performed By: #### PP, ESR, CK, ADDONUAPLUS, CRP, CMP, TSH3, CBC, T4F #### [address] #### ALDOLASE, FRANCISCO,URINE, UPE RAND, SPE, RPR W RFX, FRANCISCO SERUM #### [facility] ,Albumin [Mass/volume] in Serum or Plasma by Bromocresol green (BCG) dye binding methoOrdered By: Rajan Moreland on 86-41-1139Hdgvizj BCG dye [Mass/Vol]4.6 g/dL 3.5-5.7FAdams County Regional Medical CenterAlbumin/Protein.total in 24 hour Urine by ElectrophoresisOrdered By: Rajan Moreland on 59-37-5632Uuopcym Elph (24H U) [Mass fraction]31.5 %.[facility] Medical CenterAldolaseon 08-16-2023 Aldolase4.0 U/LNormal3.3-10.3The [facility] Access Hospital Physician GroupComment on above: Result Comment: Performed at: - [facility] [address] [id number] Book Jacket Cover Machine Operator: Scott Freedman PhD, Phone: [phone] PERFORMED BY: [place] [address] PATHOLOGIST PROP MAKER LUZ ELENA MEDINA M.D.Performed By: #### PP, ESR, CK, ADDONUAPLUS, CRP, CMP, TSH3, CBC, T4F #### [place] [id number] [place] #### ALDOLASE, FRANCISCO,URINE, UPE RAND, SPE, RPR W RFX, FRANCISCO SERUM #### [facility] ,Alkaline phosphatase [Enzymatic activity/volume] in Serum or PlasmaOrdered By: Rajan Moreland on 57-24-0648EFZ [Catalytic activity/Vol]61 U/M63-077HwpucupkrTrumbull Regional Medical CenterComment on above:Performed By: #### PP, ESR, CK, ADDONUAPLUS, CRP, CMP, TSH3, CBC, T4F #### [address] #### ALDOLASE, FRANCISCO,URINE, UPE RAND, SPE, RPR W RFX, FRANCISCO SERUM #### [facility] ,Antithyroglobulin Abon 32-61-7813Ptrghsnnobmppdwvb Ab<1.4Vpxdnb6.0-0.9The Critical Access Hospital Physician GroupComment on above:Result Comment: Thyroglobulin Antibody measured by Angel Jackson Methodology It should be noted that the presence of thyroglobulin antibodies may not be pathogenic nor diagnostic, especially at very low levels. The assay cms expert has found that four percent of individuals without evidence of thyroid disease or autoimmunity will have positive TgAb levels up to 4 IU/mL. Performed at: [address] [id number] Book Jacket Cover Machine Operator: Scott Freedman PhD, Phone: [phone] By: #### PP, ESR, CK, ADDONUAPLUS, CRP, CMP, TSH3, CBC, T4F #### [address] #### ALDOLASE, FRANCISCO,URINE, UPE RAND, SPE, RPR W RFX, FRANCISCO SERUM #### [facility] ,Aspartate aminotransferase [Enzymatic activity/volume] in Serum or Plasma Ordered By: Rajan Moreland on 38-38-2582TSF [Catalytic activity/Vol]22 U/L13-39 [facility] CenterComment on above:Performed By: #### PP, ESR, CK, ADDONUAPLUS, CRP, CMP, TSH3, CBC, T4F #### [address] #### ALDOLASE, FRANCISCO,URINE, UPE RAND, SPE, RPR W RFX, FRANCISCO SERUM #### [facility] ,Automated basophil %Ordered By: Rajan Moreland on 60-04-2685Gycrnxtdu/100 WBC (Bld)0.5 %.[facility] CenterComment on above:Performed By: #### PP, ESR, CK, ADDONUAPLUS, CRP, CMP, TSH3, CBC, T4F #### [address] #### ALDOLASE, FRANCISCO,URINE, UPE RAND, SPE, RPR W RFX, FRANCISCO SERUM #### [facility] ,Automated basophil countOrdered By: Rajanbettina Moreland on 90-77-2390Hswpzdfpk (Bld) [#/Vol]0.0 10*3/uL0.0-0.2FAdams County Regional Medical CenterComselect specialty hospital-[facility] on above: Performed By: #### PP, ESR, CK, ADDONUAPLUS, CRP, CMP, TSH3, CBC, T4F #### [address] #### ALDOLASE, FRANCISCO,URINE, UPE RAND, SPE, RPR W RFX, FRANCISCO SERUM #### [facility] ,Automated blood monocyte countOrdered By: Rajan Moreland on 75-89-5566Teockqcxg (Bld) [#/Vol]0.5 10*3/uL0.0-0.8[facility] on above:Performed By: #### PP, ESR, CK, ADDONUAPLUS, CRP, CMP, TSH3, CBC, T4F #### [address] #### ALDOLASE, FRANCISCO,URINE, UPE RAND, SPE, RPR W RFX, FRANCISCO SERUM #### [facility] ,Automated eosinophil %Ordered By: Rajan Moreland on 65-72-7532Dgrhyqtpkwv/100 WBC (Bld)1.1 %.[facility] CenterComment on above:Performed By: #### PP, ESR, CK, ADDONUAPLUS, CRP, CMP, TSH3, CBC, T4F #### [facility] [address] [place] [address] #### ALDOLASE, FRANCISCO,URINE, UPE RAND, SPE, RPR W RFX, FRANCISCO SERUM #### [facility] ,Automated eosinophil countOrdered By: Rajan Moreland on 12-15-1574Ahwbqmujfho (Bld) [#/Vol]0.1 10*3/uL0.0-0.45[facility] CenterComment on above:Performed By: #### PP, ESR, CK, ADDONUAPLUS, CRP, CMP, TSH3, CBC, T4F #### [facility] [address] [place] [address] #### ALDOLASE, FRANCISCO,URINE, UPE RAND, SPE, RPR W RFX, FRANCISCO SERUM #### [facility] ,Automated monocyte %Ordered By: Rajan Moreland on 18-21-7755Uxibtvvma/100 WBC (Bld)5.8 %.[facility] Medical CenterComment on above:Performed By: #### PP, ESR, CK, ADDONUAPLUS, CRP, CMP, TSH3, CBC, T4F #### [facility] [address] [place] [address] [place] #### ALDOLASE, FRANCISCO,URINE, UPE RAND, SPE, RPR W RFX, FRANCISCO SERUM #### [facility] ,Automated neutrophil %Ordered By: Rajan Moreland on 67-16-2716Upizrgywbws/100 WBC (Bld)79.8 %.[facility] Medical CenterComment on above:Performed By: #### PP, ESR, CK, ADDONUAPLUS, CRP, CMP, TSH3, CBC, T4F #### [place] [address] [place] #### ALDOLASE, FRANCISCO,URINE, UPE RAND, SPE, RPR W RFX, FRANCISCO SERUM #### [facility] ,Bacteria [Presence] in Urine by AutomatedOrdered By: Rajan Moreland on 36-04-4048Iyddhiko Auto Ql (U)None seen [HPF]None SeenTrumbull Regional Medical CenterBilirubin Test strip Ql (U)Ordered By: Rajan Moreland on 08-16-2023 Bilirubin Ql (U)NegativeNegativeTrumbull Regional Medical CenterBilirubin.total [Mass/volume] in Serum or PlasmaOrdered By: Rajan Moreland on 08-16-2023 Bilirubin [Mass/Vol]1.2 mg/dL0.3-1.0[facility] CenterComment on above:Performed By: #### PP, ESR, CK, ADDONUAPLUS, CRP, CMP, TSH3, CBC, T4F #### [facility] [address] #### ALDOLASE, FRANCISCO,URINE, UPE RAND, SPE, RPR W RFX, FRANCISCO SERUM #### [facility] ,C reactive protein [Mass/volume] in Serum or PlasmaOrdered By: Rajan Moreland on 39-53-3909IZL [Mass/Vol]< 0.5 mg/dL0.0-0.5FAdams County Regional Medical CenterC- Reactive Proteinon 12-35-3869KQY [Mass/Vol]mg/LNormal0.0-0.5The Critical Access Hospital Physician GroupComment on above:Performed By: #### PP, ESR, CK, ADDONUAPLUS, CRP, CMP, TSH3, CBC, T4F #### [facility] [address] [place] [address] [place] #### ALDOLASE, FRANCISCO,URINE, UPE RAND, SPE, RPR W RFX, FRANCISCO SERUM #### [facility] ,CT biopsyOrdered By: Rajan Pascualrow on 98-31-8695PN biopsy4.0 U/L3.3-10.3 [facility] CenterComment on above:Performed at: [facility] - [facility] [place] [id number] [place], [place] [id number] Director: Scott Freedman PhD, Phone: [phone] [Mass/volume] in Serum or PlasmaOrdered By: Rajan Moreland on 97-87-5047Gvswwkn [Mass/Vol]9.9 mg/dL8.6-10.3FAdams County Regional Medical CenterComment on above:Performed By: #### PP, ESR, CK, ADDONUAPLUS, CRP, CMP, TSH3, CBC, T4F #### [facility] [address] [place] [address] #### ALDOLASE, FRANCISCO,URINE, UPE RAND, SPE, RPR W RFX, FRANCISCO SERUM #### [facility] ,Carbon dioxide, total [Moles/volume] in Serum or PlasmaOrdered By: Rajan Pascualrow on 28-97-9655NZ7 [Moles/Vol]29.6 mmol/L21.0-31.0[facility] Medical CenterComment on above:Performed By: #### PP, ESR, CK, ADDONUAPLUS, CRP, CMP, TSH3, CBC, T4F #### [facility] [address] [place] [address] [place] #### ALDOLASE, FRANCISCO,URINE, UPE RAND, SPE, RPR W RFX, FRANCISCO SERUM #### [facility] ,Chloride [Moles/volume] in Serum or PlasmaOrdered By: Rajan Pascualrow on 64-10-8392Qidnqssd [Moles/Vol]101 mmol/S70-488CmalxhnruTrumbull Regional Medical Center Comment on above:Performed By: #### PP, ESR, CK, ADDONUAPLUS, CRP, CMP, TSH3, CBC, T4F #### [facility] [address] [place] [address] [place] #### ALDOLASE, FRANCISCO,URINE, UPE RAND, SPE, RPR W RFX, FRANCISCO SERUM #### [facility] ,Chromatin Antibodyon 99-10-8366Assroxnxd Antibody0.8Ufidvt7.0-0.9The [facility] Access Hospital Physician GroupComment on above:Result Comment: Performed at: - [facility] [id number] Book Jacket Cover Machine Operator: Scott Freedman PhD, Phone: [phone] PERFORMED BY: [place] [address] PATHOLOGIST PROP MAKER LUZ ELENA MEDINA M.D.Performed By: #### PP, ESR, CK, ADDONUAPLUS, CRP, CMP, TSH3, CBC, T4F #### [address] #### ALDOLASE, FRANCISCO,URINE, UPE RAND, SPE, RPR W RFX, FRANCISCO SERUM #### [facility] ,Coagulation Profileon 25-93-3362oAWJ Coag (Bld) [Time]25.9 bVnbhcs04.1-36.5The Critical Access Hospital Physician GroupComment on above:Result Comment: A hematocrit value greater than 55% may lead to inaccurate results in coagulation testing. Patients having hematocrit values >55% require a special collection tube for coagulation studies. Please contact the laboratory at [phone] for redraw instructions. PERFORMED BY: [place] [address] PATHOLOGIST PROP MAKER LUZ ELENA MEDINA M.D.Performed By: #### PP, ESR, CK, ADDONUAPLUS, CRP, CMP, TSH3, CBC, T4F #### [facility] [address] [place] [address] #### ALDOLASE, FRANCISCO,URINE, UPE RAND, SPE, RPR W RFX, FRANCISCO SERUM #### [facility] ,Color of Urine by AutoOrdered By: Rajan Moreland on 92-50-4071Fbjir (U)Yellow [facility] West HospitalComment on above:Order Comment: Name Collection Type:: Clean-Voided MidstreamPerformed By: #### PP, ESR, CK, ADDONUAPLUS, CRP, CMP, TSH3, CBC, T4F #### [facility] [address] #### ALDOLASE, FRANCISCO,URINE, UPE RAND, SPE, RPR W RFX, FRANCISCO SERUM #### [facility] ,Complement C3on 98-25-4013Jiargwpkvs C3171 mg/mGHhqe15-863Klp [facility] Hospital Physician GroupComment on above:Result Comment: Performed at: - [facility] [id number] Book Jacket Cover Machine Operator: Scott Freedman PhD, Phone: [phone] By: #### PP, ESR, CK, ADDONUAPLUS, CRP, CMP, TSH3, CBC, T4F #### [address] #### ALDOLASE, FRANCISCO,URINE, UPE RAND, SPE, RPR W RFX, FRANCISCO SERUM #### [facility] ,Complement C4on 23-05-5425Ooskbdpnye C427 mg/tQPrnhzi55-34Msy [facility] Hospital Physician GroupComment on above:Performed By: #### PP, ESR, CK, ADDONUAPLUS, CRP, CMP, TSH3, CBC, T4F #### [address] #### ALDOLASE, FRANCISCO,URINE, UPE RAND, SPE, RPR W RFX, FRANCISCO SERUM #### [facility] ,Complement Total (CH50)on 97-28-3281Ypqgsdfqqy Total (CH50)>60Normal>41The Critical Access Hospital Physician GroupComment on above:Result Comment: Age [...] out of range values. Performed at: - [facility] [address] [id number] Book Jacket Cover Machine Operator: Scott Freedman PhD, Phone: [phone] PERFORMED BY: [place] [address] PATHOLOGIST PROP MAKER LUZ ELENA MEDINA M.D.Performed By: #### PP, ESR, CK, ADDONUAPLUS, CRP, CMP, TSH3, CBC, T4F #### [address] #### ALDOLASE, FRANCISCO,URINE, UPE RAND, SPE, RPR W RFX, FRANCISCO SERUM #### [facility] ,Complete Blood Count Auto Diffon 48-30-1804Njye Corpuscular HGB Conc33.3 g/dL Xvezhq83.5-35.6The Critical Access Hospital Physician GroupComment on above:Performed By: #### PP, ESR, CK, ADDONUAPLUS, CRP, CMP, TSH3, CBC, T4F #### [address] #### ALDOLASE, FRANCISCO,URINE, UPE RAND, SPE, RPR W RFX, FRANCISCO SERUM #### [facility] ,NRBC%0.1 /100{WBC}Normal0-0.5The Critical Access Hospital Physician GroupComment on above: Performed By: #### PP, ESR, CK, ADDONUAPLUS, CRP, CMP, TSH3, CBC, T4F #### [place] [address] [place] #### ALDOLASE, FRANCISCO,URINE, UPE RAND, SPE, RPR W RFX, FRANCISCO SERUM #### [facility] ,Comprehensive Metabolic Panelon 00-17-6045Chvatok [Mass/Vol]4.6 g/dLNormal 3.5-5.7The Critical Access Hospital Physician GroupComment on above:Performed By: #### PP, ESR, CK, ADDONUAPLUS, CRP, CMP, TSH3, CBC, T4F #### [place] [address] [place] #### ALDOLASE, FRANCISCO,URINE, UPE RAND, SPE, RPR W RFX, FRANCISCO SERUM #### [facility] ,GFR/1.73 sq M.predicted MDRD (S/P/Bld) [Vol rate/Area]mL/min/{1.73_m2}NormalThe Critical Access Hospital Physician GroupComment on above:Performed By: #### PP, ESR, CK, ADDONUAPLUS, CRP, CMP, TSH3, CBC, T4F #### [facility] [address] [place] [address] #### ALDOLASE, FRANCISCO,URINE, UPE RAND, SPE, RPR W RFX, FRANCISCO SERUM #### [facility] ,Creatine kinase [Enzymatic activity/volume] in Serum or PlasmaOrdered By: Rajan Moreland on 38-21-5502IG [Catalytic activity/Vol]128 U/K77-126WtzpmznprTrumbull Regional Medical CenterComment on above:Result Comment: PERFORMED BY: [place] [address] PATHOLOGIST PROP MAKER LUZ ELENA MEDINA M.D.Performed By: #### PP, ESR, CK, ADDONUAPLUS, CRP, CMP, TSH3, CBC, T4F #### [facility] [address] [place] [address] #### ALDOLASE, FRANCISCO,URINE, UPE RAND, SPE, RPR W RFX, FRANCISCO SERUM #### [facility] ,Creatinine [Mass/volume] in Serum or PlasmaOrdered By: Rajan Moreland on 55-85-9022Lpqkfprdmi [Mass/Vol]0.78 mg/dL0.70-1.30[facility] Regional Medical CenterComment on above:Performed By: #### PP, ESR, CK, ADDONUAPLUS, CRP, CMP, TSH3, CBC, T4F #### [address] #### ALDOLASE, FRANCISCO,URINE, UPE RAND, SPE, RPR W RFX, FRANCISCO SERUM #### [facility] ,Dipstick and Microscopicon 08-18-0882Qyifhtqqzr (U)ClearNormalClearAdventhealth Zephyrhills Physician GroupComment on above:Order Comment: Name Collection Type:: Clean-Voided MidstreamPerformed By: #### PP, ESR, CK, ADDONUAPLUS, CRP, CMP, TSH3, CBC, T4F #### [address] #### ALDOLASE, FRANCISCO,URINE, UPE RAND, SPE, RPR W RFX, FRANCISCO SERUM #### [facility] ,Bacteria,UrineNone SeenNormalNone SeenAdventhealth Zephyrhills Physician GroupComment on above:Order Comment: Name Collection Type:: Clean-Voided MidstreamPerformed By: #### PP, ESR, CK, ADDONUAPLUS, CRP, CMP, TSH3, CBC, T4F #### [address] #### ALDOLASE, FRANCISCO,URINE, UPE RAND, SPE, RPR W RFX, FRANCISCO SERUM #### [facility] ,Bilirubin,UrineNegativeNormalNegativeAdventhealth Zephyrhills Physician GroupComment on above:Order Comment: Name Collection Type:: Clean-Voided MidstreamPerformed By: #### PP, ESR, CK, ADDONUAPLUS, CRP, CMP, TSH3, CBC, T4F #### [place] [address] [place] #### ALDOLASE, FRANCISCO,URINE, UPE RAND, SPE, RPR W RFX, FRANCISCO SERUM #### [facility] ,Glucose Ql (U)500 mg/dLHoly [facility] Center Physician [facility] Mississippi State HospitalComment on above: Order Comment: Name Collection Type:: Clean-Voided MidstreamPerformed By: #### PP, ESR, CK, ADDONUAPLUS, CRP, CMP, TSH3, CBC, T4F #### [address] #### ALDOLASE, FRANCISCO,URINE, UPE RAND, SPE, RPR W RFX, FRANCISCO SERUM #### [facility] ,Hyaline Casts,UrineNone SeenNormal0-8The [facility] Access Hospital Physician GroupComment on above:Order Comment: Name Collection Type:: Clean-Voided MidstreamResult Comment: PERFORMED BY: [place] [address] PATHOLOGIST PROP MAKER LUZ ELENA MEDINA M.D.Performed By: #### PP, ESR, CK, ADDONUAPLUS, CRP, CMP, TSH3, CBC, T4F #### [address] #### ALDOLASE, FRANCISCO,URINE, UPE RAND, SPE, RPR W RFX, FRANCISCO SERUM #### [facility] ,Ketones Ql (U)NegativeNormalNegativeAdventhealth Zephyrhills Physician GroupComment on above:Order Comment: Name Collection Type:: Clean-Voided MidstreamPerformed By: #### PP, ESR, CK, ADDONUAPLUS, CRP, CMP, TSH3, CBC, T4F #### [address] #### ALDOLASE, FRANCISCO,URINE, UPE RAND, SPE, RPR W RFX, FRANCISCO SERUM #### [facility] ,Leukocyte esterase Test strip Ql (U)NegativeNormalNegativeThe Critical Access Hospital Physician GroupComment on above:Order Comment: Name Collection Type:: Clean- Voided MidstreamPerformed By: #### PP, ESR, CK, ADDONUAPLUS, CRP, CMP, TSH3, CBC, T4F #### [address] #### ALDOLASE, FRANCISCO,URINE, UPE RAND, SPE, RPR W RFX, FRANCISCO SERUM #### [facility] ,Nitrite,UrineNegativeNormalNegativeThe Critical Access Hospital Physician GroupComment on above:Order Comment: Name Collection Type:: Clean-Voided MidstreamPerformed By: #### PP, ESR, CK, ADDONUAPLUS, CRP, CMP, TSH3, CBC, T4F #### [address] #### ALDOLASE, FRANCISCO,URINE, UPE RAND, SPE, RPR W RFX, FRANCISCO SERUM #### [facility] ,Occult Blood,UrineNegativeNormalNegativeThe Critical Access Hospital Physician GroupComment on above:Order Comment: Name Collection Type:: Clean-Voided MidstreamPerformed By: #### PP, ESR, CK, ADDONUAPLUS, CRP, CMP, TSH3, CBC, T4F #### [address] #### ALDOLASE, FRANCISCO,URINE, UPE RAND, SPE, RPR W RFX, FRANCISCO SERUM #### [facility] ,Protein,UrineNegativeNormalNegativeThe Critical Access Hospital Physician GroupComment on above:Order Comment: Name Collection Type:: Clean-Voided MidstreamPerformed By: #### PP, ESR, CK, ADDONUAPLUS, CRP, CMP, TSH3, CBC, T4F #### [address] #### ALDOLASE, FRANCISCO,URINE, UPE RAND, SPE, RPR W RFX, FRANCISCO SERUM #### [facility] ,RBC LM.HPF (Urine sed) [#/Area]0 /[HPF]Normal0-4The [facility] Comment on above:Order Comment: Name Collection Type:: Clean-Voided Midstream Performed By: #### PP, ESR, CK, ADDONUAPLUS, CRP, CMP, TSH3, CBC, T4F #### [address] #### ALDOLASE, FRANCISCO,URINE, UPE RAND, SPE, RPR W RFX, FRANCISCO SERUM #### [facility] ,Specificy [place],Urine1.586Tzaroh8.001-1.030The [facility] Comment on above:Order Comment: Name Collection Type:: Clean-Voided Midstream Performed By: #### PP, ESR, CK, ADDONUAPLUS, CRP, CMP, TSH3, CBC, T4F #### [address] #### ALDOLASE, FRANCISCO,URINE, UPE RAND, SPE, RPR W RFX, FRANCISCO SERUM #### [facility] ,Squamous Epithelial Cell,UrineNone SeenNormal0-2The [facility] Comment on above:Order Comment: Name Collection Type:: Clean-Voided Midstream Performed By: #### PP, ESR, CK, ADDONUAPLUS, CRP, CMP, TSH3, CBC, T4F #### [address] #### ALDOLASE, FRANCISCO,URINE, UPE RAND, SPE, RPR W RFX, FRANCISCO SERUM #### [facility] ,Urobilinogen,UrineNormalNormalNormalThe Critical Access Hospital Physician GroupComment on above:Order Comment: Name Collection Type:: Clean-Voided MidstreamPerformed By: #### PP, ESR, CK, ADDONUAPLUS, CRP, CMP, TSH3, CBC, T4F #### [address] #### ALDOLASE, FRANCISCO,URINE, UPE RAND, SPE, RPR W RFX, FRANCISCO SERUM #### [facility] ,WBC LM.HPF (Urine sed) [#/Area]0 /[HPF]Normal0-4The [facility] Comment on above:Order Comment: Name Collection Type:: Clean-Voided Midstream Performed By: #### PP, ESR, CK, ADDONUAPLUS, CRP, CMP, TSH3, CBC, T4F #### [address] #### ALDOLASE, FRANCISCO,URINE, UPE RAND, SPE, RPR W RFX, FRANCISCO SERUM #### [facility] ,Erythrocyte Sedimentation Rateon 29-24-9447XKV (Bld) [Velocity]12 mm/hNormal 0-19The [facility] Access Hospital Physician GroupComment on above:Result Comment: PERFORMED BY: [place] [address] PATHOLOGIST PROP MAKER LUZ ELENA MEDINA M.D.Performed By: #### PP, ESR, CK, ADDONUAPLUS, CRP, CMP, TSH3, CBC, T4F #### [address] #### ALDOLASE, FRANCISCO,URINE, UPE RAND, SPE, RPR W RFX, FRANCISCO SERUM #### [facility] ,Erythrocyte distribution width [Ratio] by Automated countOrdered By: Rajan Moreland on 58-35-7827Cyldvwurdfu distribution width (RBC) [Ratio]13.5 %12.0-14.8 [facility] Medical CenterComment on above:Performed By: #### PP, ESR, CK, ADDONUAPLUS, CRP, CMP, TSH3, CBC, T4F #### [address] #### ALDOLASE, FRANCISCO,URINE, UPE RAND, SPE, RPR W RFX, FRANCISCO SERUM #### [facility] ,Erythrocyte sedimentation rate by Photometric methodOrdered By: Rajan Moreland on 70-50-1714SZU Photometric method (Bld) [Velocity]12 mm/hr0-19[facility] Medical CenterErythrocytes [#/area] in Urine sediment by Automated countOrdered By: Rajan Moreland on 34-08-4018OSI Auto (Urine sed) [#/Area]0-1 [HPF]0-4FAdams County Regional Medical CenterErythrocytes [#/volume] in Blood by Automated countOrdered By: Rajan Moreland on 18-56-9413BJM (Bld) [#/Vol]5.36 10*6/uL3.90-5.60[facility] Medical CenterComment on above:Performed By: #### PP, ESR, CK, ADDONUAPLUS, CRP, CMP, TSH3, CBC, T4F #### [address] #### ALDOLASE, FRANCISCO,URINE, UPE RAND, SPE, RPR W RFX, FRANCISCO SERUM #### [facility] ,Gamma globulin/Protein.total in 24 hour Urine by ElectrophoresisOrdered By: Rajan Moreland on 98-41-9967Ufbia globulin Elph (24H U) [Mass fraction]20.2 %. [facility] Medical CenterGlucose [Mass/volume] in Serum or PlasmaOrdered By: Rajan Pascualrow on 79-03-2430Necnmtn [Mass/Vol]280 mg/xF16-360VskokfohiTrumbull Regional Medical CenterComment on above:ADA recommended reference rangeRandom Glucose Reference [...] ADDONUAPLUS, CRP, CMP, TSH3, CBC, T4F #### [address] #### ALDOLASE, FRANCISCO,URINE, UPE RAND, SPE, RPR W RFX, FRANCISCO SERUM #### [facility] ,Hematocrit [Volume Fraction] of Blood by Automated countOrdered By: Rajan Moreland on 29-79-3553Kufjtumgqs (Bld) [Volume fraction]43.6 %38.8-50.0[facility] Medical CenterComment on above:Performed By: #### PP, ESR, CK, ADDONUAPLUS, CRP, CMP, TSH3, CBC, T4F #### [address] #### ALDOLASE, FRANCISCO,URINE, UPE RAND, SPE, RPR W RFX, FRANCISCO SERUM #### [facility] ,Hemoglobin [Mass/volume] in BloodOrdered By: Rajan Moreland on 08-16-2023 Hemoglobin (Bld) [Mass/Vol]14.6 g/dL13.0-17.0[facility] Comment on above:Performed By: #### PP, ESR, CK, ADDONUAPLUS, CRP, CMP, TSH3, CBC, T4F #### [facility] [address] [place] [address] [place] #### ALDOLASE, FRANCISCO,URINE, UPE RAND, SPE, RPR W RFX, FRANCISCO SERUM #### [facility] ,INR in Platelet poor plasma by Coagulation assayOrdered By: Rajan Moreland on 54-17-5368XJJ Coag (PPP) [Relative time]0.9 {INR}[facility] Medical CenterComment on above:INR Therapeutic Range A) Pre- and [...] ADDONUAPLUS, CRP, CMP, TSH3, CBC, T4F #### [facility] [address] [place] [address] [place] #### ALDOLASE, FRANCISCO,URINE, UPE RAND, SPE, RPR W RFX, FRANCISCO SERUM #### [facility] ,IgA [Mass/volume] in Serum or PlasmaOrdered By: Rajan Moreland on 41-98-6955PwM [Mass/Vol]239 mg/nG63-517ZffoupcvyTrumbull Regional Medical CenterIgG [Mass/volume] in Serum or PlasmaOrdered By: Rajan Moreland on 84-45-7794AyM [Mass/Vol]1196 mg/dL 603-1613Tr[facility]ull Regional Medical CenterIgM [Mass/volume] in Serum or Plasma Ordered By: Rajan Aniceto on 97-57-9984PqB [Mass/Vol]141 mg/uY90-999TzrupzmblTrumbull Regional Medical CenterComment on above:Performed at: [facility] Director: Scott Freedman PhD, Phone: [phone] for UrineOrdered By: Rajan Moreland on 08-16-2023 Interpretation Immunofixation (U) [Interp]See comment.[facility] Medical CenterComment on above:No monoclonality detected.Performed at: [facility] [id number] Director: Scott Freedman PhD, Phone: [phone], (FRANCISCO), Urineon 42-37-9067Mniacsuwyjfjhk, (FRANCISCO), UrineNormal.The [facility] Access Hospital Physician GroupComment on above:Result Comment: No monoclonality detected. Performed at: [place] [id number] [place] [address] Book Jacket Cover Machine Operator: Scott Freedman PhD, Phone: [phone] By: #### PP, ESR, CK, ADDONUAPLUS, CRP, CMP, TSH3, CBC, T4F #### [address] #### ALDOLASE, FRANCISCO,URINE, UPE RAND, SPE, RPR W RFX, FRANCISCO SERUM #### [facility] ,Immunofixation,Serumon 57-38-7959Xdktgtagcieren, SerumNormal.The [facility] Hospital Physician GroupComment on above:Result Comment: No monoclonality detected. Performed By: #### PP, ESR, CK, ADDONUAPLUS, CRP, CMP, TSH3, CBC, T4F #### [place] [address] [place] #### ALDOLASE, FRANCISCO,URINE, UPE RAND, SPE, RPR W RFX, FRANCISCO SERUM #### [facility] ,Immunoglobulin A, Rzkbp602 mg/bECioyfg52-321Ivj [facility] Comment on above:Performed By: #### PP, ESR, CK, ADDONUAPLUS, CRP, CMP, TSH3, CBC, T4F #### [address] #### ALDOLASE, FRANCISCO,URINE, UPE RAND, SPE, RPR W RFX, FRANCISCO SERUM #### [facility] ,Immunoglobulin G1196 mg/vJJmnaqo622-5776Omp [facility] Hospital Physician GroupComment on above:Performed By: #### PP, ESR, CK, ADDONUAPLUS, CRP, CMP, TSH3, CBC, T4F #### [address] #### ALDOLASE, FRANCISCO,URINE, UPE RAND, SPE, RPR W RFX, FRANCISCO SERUM #### [facility] ,Immunoglobulin M, Gklfz360 mg/vLNutkjv10-487Eun [facility] Comment on above:Result Comment: Performed at: [facility] [id number] [employer] Cover Machine Operator: Scott Freedman PhD, Phone: [phone] By: #### PP, ESR, CK, ADDONUAPLUS, CRP, CMP, TSH3, CBC, T4F #### [place] [address] [place] #### ALDOLASE, FRANCISCO,URINE, UPE RAND, SPE, RPR W RFX, FRANCISCO SERUM #### [facility] ,Ketones Auto test strip (U) [Mass/Vol]Ordered By: Rajan Moreland on 08-16-2023 Ketones (U) [Mass/Vol]NegativeNegativeTrumbull Regional Medical Center Laboratory - UrinalysisOrdered By: Rjaan Moreland on 71-94-7640Eiuoyyr casts LM Ql (Urine sed)None seen [LPF]0-8[facility] Medical CenterLeukocytes [#/area] in Urine sediment by Automated countOrdered By: Rajan Moreland on 62-31-8714PGG Auto (Urine sed) [#/Area]0-1 [HPF]0-4FAdams County Regional Medical CenterLeukocytes [#/volume] corrected for nucleated erythrocytes in Blood by Automated counOrdered By: Rajan Moreland on 16-97-2769IRX corrected for nucl RBC Auto (Bld) [#/Vol]8.1 10*3/uL4.1-10.5FAdams County Regional Medical Center Leukocytes [#/volume] in Blood by Automated countOrdered By: Rajan Moreland on 85-66-4209RLQ (Bld) [#/Vol]8.1 10*3/uL4.1-10.5FAdams County Regional Medical Center Comment on above:Performed By: #### PP, ESR, CK, ADDONUAPLUS, CRP, CMP, TSH3, CBC, T4F #### [facility] [address] [place] [address] #### ALDOLASE, FRANCISCO,URINE, UPE RAND, SPE, RPR W RFX, FRANCISCO SERUM #### [facility] ,Lupus Anticoagulant Compon 46-00-9002Kprypl Prothrombin Time (dPt)32.7Normal 0.0-47.6The [facility] Access Hospital Physician GroupComment on above:Performed By: #### LUPANTCOAG #### [facility] ,dPT Confirm Ratio1.16Yougll5.00-1.34The [facility] Access Hospital Physician GroupComment on above:Performed By: #### LUPANTCOAG #### [facility] ,DRVVT Lupus31.3Avkylp5.0-47.0The [facility] Access Hospital Physician GroupComment on above: Performed By: #### LUPANTCOAG #### [facility] ,InterpretationComment:Normal.The [facility] Access Hospital Physician GroupComment on above: Result Comment: No lupus anticoagulant was detected. Performed at: - [facility] [place], [place] [id number] Book [employer] Cover Machine Operator: Blane Frazier MD, Phone: [phone] PERFORMED BY: [facility] [address] [place] [address] PATHOLOGIST PROP MAKER LUZ ELENA MEDINA M.D.Performed By: #### LUPANTCOAG #### [facility] ,PTT-LA28.0Gdmpze8.0-43.5The Critical Access Hospital Physician GroupComment on above:Performed By: #### LUPANTCOAG #### [facility] ,Thrombin Time18.2Fzzafu1.0-23.0The [facility] Access Hospital Physician GroupComment on above: Performed By: #### LUPANTCOAG #### [facility] ,Lupus anticoagulant [Interpretation] in Platelet poor plasmaOrdered By: Rajan Moreland on 91-56-1444Szlbg anticoagulant (PPP) [Interp]Comment:.[facility] Medical CenterComment on above:No lupus anticoagulant was detected.Performed at: - [facility] [id number] Director: Blane Frazier MD, Phone: [phone] [#/volume] in Blood by Automated countOrdered By: Rajan Moreland on 08-16-2023 Lymphocytes (Bld) [#/Vol]1.0 10*3/uL1.00-4.8[facility] Comment on above:Performed By: #### PP, ESR, CK, ADDONUAPLUS, CRP, CMP, TSH3, CBC, T4F #### [facility] [address] [place] [address] [place] #### ALDOLASE, FRANCISCO,URINE, UPE RAND, SPE, RPR W RFX, FRANCISCO SERUM #### [facility] ,Lymphocytes/100 leukocytes in Blood by Automated countOrdered By: Rajan Moreland on 06-21-8104Zbehhswqvmf/100 WBC (Bld)12.8 %.[facility] Medical CenterComment on above:Performed By: #### PP, ESR, CK, ADDONUAPLUS, CRP, CMP, TSH3, CBC, T4F #### [facility] [address] [place] [address] #### ALDOLASE, FRANCISCO,URINE, UPE RAND, SPE, RPR W RFX, FRANCSICO SERUM #### [facility] ,MCH [Entitic mass] by Automated countOrdered By: Rajan Moreland on 08-16-2023 MCH (RBC) [Entitic mass]27.1 pg27.5-35.2FAdams County Regional Medical CenterComment on above:Performed By: #### PP, ESR, CK, ADDONUAPLUS, CRP, CMP, TSH3, CBC, T4F #### [address] #### ALDOLASE, FRANCISCO,URINE, UPE RAND, SPE, RPR W RFX, FRANCISCO SERUM #### [facility] ,MCHC Auto (RBC) [Mass/Vol]Ordered By: Rajan Moreland on 84-22-9428VNUB (RBC) [Mass/Vol]33.3 g/dL32.5-35.6FAdams County Regional Medical CenterMCV [Entitic volume] by Automated countOrdered By: Rajan Morealnd on 11-48-7155PSC (RBC) [Entitic vol]81.4 fL83.5-101[facility] CenterComment on above: Performed By: #### PP, ESR, CK, ADDONUAPLUS, CRP, CMP, TSH3, CBC, T4F #### [place] [address] [place] #### ALDOLASE, FRANCISCO,URINE, UPE RAND, SPE, RPR W RFX, FRANCISCO SERUM #### [facility] ,Neutrophils [#/volume] in Blood by Automated countOrdered By: Rajan Moreland on 35-06-9896Xxtntgejjbj (Bld) [#/Vol]6.5 10*3/uL1.8-7.7FAdams County Regional Medical CenterComment on above:Performed By: #### PP, ESR, CK, ADDONUAPLUS, CRP, CMP, TSH3, CBC, T4F #### [facility] [address] #### ALDOLASE, FRANCISCO,URINE, UPE RAND, SPE, RPR W RFX, FRANCISCO SERUM #### [facility] ,Nitrite Test strip Ql (U)Ordered By: Rajan Moreland on 65-26-3228Ugranij Ql (U) NegativeNegativeTrumbull Regional Medical CenterNo Panel InformationOrdered By: Rajan Moreland on 38-74-0313Jxkxkpzfv GFR (CKD-EPI)> 60.0 mL/MinTrumbull Regional Medical CenterPharmacy Creatinine Clearance (ChemN/[facility] DaytonProtein Electrophoresis M-SpikeNot observed g/dLNot Observed [facility] CenterProtein Electrophoresis NoteSee comment. [facility] Medical CenterComment on above:Protein electrophoresis scan will follow via computer,mail, or felt cutter delivery.Serum ImmunofixationSee comment.[facility] Medical CenterComment on above:No monoclonality detected.Total Complement (CH50)>60 U/mL>41[facility] Comment on above:Age Male Female 1 - [...] to determine out of range values.Performed at: [facility] [id number] Director: Scott Freedman PhD, Phone: [phone] Random Prot Electrophor NoteSee comment.[facility] Comment on above:Protein electrophoresis scan will follow via computer,mail, or felt cutter delivery.Performed at: [facility] [id number] Director: Scott Freedman PhD, Phone: [phone] erythrocytes [Presence] in Blood by Automated countOrdered By: Rajan Moreland on 33-97-2125Diroqxbas RBC Auto Ql (Bld)0.1 /100{WBC}0-0.5FAdams County Regional Medical CenterPlatelet mean volume [Entitic volume] in Blood by Automated count Ordered By: Rajan Pascualrow on [id number] mean volume (Bld) [Entitic vol] 8.1 fL6.6-10.1FAdams County Regional Medical CenterComment on above:Performed By: #### PP, ESR, CK, ADDONUAPLUS, CRP, CMP, TSH3, CBC, T4F #### [address] #### ALDOLASE, FRANCISCO,URINE, UPE RAND, SPE, RPR W RFX, FRANCISCO SERUM #### [facility] ,Platelet poor plasma ratio of lupus anticoagulant-sensitive activated partial thromboOrdered By: Rajan Moreland on [id number].lupus sensitive.excess phospholipid actual/normal Coag (PPP) [Relative time]32.7 sec0.0-47.6FAdams County Regional Medical CenterPlatelets [#/volume] in Blood by Automated countOrdered By: Rajanbettina Moreland on [id number] (Bld) [#/Vol]299 10*3/aW423-541 [facility] CenterComment on above:Performed By: #### PP, ESR, CK, ADDONUAPLUS, CRP, CMP, TSH3, CBC, T4F #### [place] [address] [place] #### ALDOLASE, FRANCISCO,URINE, UPE RAND, SPE, RPR W RFX, FRANCISCO SERUM #### [facility] ,Potassium [Moles/volume] in Serum or PlasmaOrdered By: Rajan Moreland on 33-75-4047Mfumprjqy [Moles/Vol]4.4 mmol/L3.5-5.1FAdams County Regional Medical CenterComment on above:Performed By: #### PP, ESR, CK, ADDONUAPLUS, CRP, CMP, TSH3, CBC, T4F #### [facility] [address] [place] [address] [place] #### ALDOLASE, FRANCISCO,URINE, UPE RAND, SPE, RPR W RFX, FRANCISCO SERUM #### [facility] ,Protein Auto test strip (U) [Mass/Vol]Ordered By: Rajan Moreland on 08-16-2023 Protein (U) [Mass/Vol]NegativeNegativeTrumbull Regional Medical CenterProtein Electro, Random Urineon 81-13-7178Whwsbps, Urine31.5 %Normal.The [facility] Access Hospital Physician GroupComment on above:Performed By: #### PP, ESR, CK, ADDONUAPLUS, CRP, CMP, TSH3, CBC, T4F #### [facility] [address] [place] [address] #### ALDOLASE, FRANCISCO,URINE, UPE RAND, SPE, RPR W RFX, FRANCISCO SERUM #### [facility] ,Kiekt-3-Wdjxmffh, Urine4.2 %Normal.The [facility] Access Hospital Physician GroupComment on above:Performed By: #### PP, ESR, CK, ADDONUAPLUS, CRP, CMP, TSH3, CBC, T4F #### [address] #### ALDOLASE, FRANCISCO,URINE, UPE RAND, SPE, RPR W RFX, FRANCISCO SERUM #### [facility] ,Cdzdw-4-Gtxlryxe, Urine21.3 %Normal.The [facility] Access Hospital Physician GroupComment on above:Performed By: #### PP, ESR, CK, ADDONUAPLUS, CRP, CMP, TSH3, CBC, T4F #### [place] [address] [place] #### ALDOLASE, FRANCISCO,URINE, UPE RAND, SPE, RPR W RFX, FRANCISCO SERUM #### [facility] ,Beta Globulin, Urine22.8 %Normal.The [facility] Access Hospital Physician GroupComment on above: Performed By: #### PP, ESR, CK, ADDONUAPLUS, CRP, CMP, TSH3, CBC, T4F #### [place] [address] [place] #### ALDOLASE, FRANCISCO,URINE, UPE RAND, SPE, RPR W RFX, FRANCISCO SERUM #### [facility] ,Gamma Globulin, Urine20.2 %Normal.The [facility] Access Hospital Physician GroupComment on above:Performed By: #### PP, ESR, CK, ADDONUAPLUS, CRP, CMP, TSH3, CBC, T4F #### [address] #### ALDOLASE, FRANCISCO,URINE, UPE RAND, SPE, RPR W RFX, FRANCISCO SERUM #### [facility] ,M-Ancelmo %Not ObservedNormalNot ObservedThe Critical Access Hospital Physician GroupComment on above:Performed By: #### PP, ESR, CK, ADDONUAPLUS, CRP, CMP, TSH3, CBC, T4F #### [address] #### ALDOLASE, FRANCISCO,URINE, UPE RAND, SPE, RPR W RFX, FRANCISCO SERUM #### [facility] ,Please Note:Normal.The Critical Access Hospital Physician GroupComment on above:Result Comment: Protein electrophoresis scan will follow via computer, mail, or felt cutter delivery. Performed at: [address] [id number] Book Jacket Cover Machine Operator: Scott Freedman PhD, Phone: [phone] PERFORMED BY: [place] [address] PATHOLOGIST PROP MAKER LUZ ELENA MEDINA M.D.Performed By: #### PP, ESR, CK, ADDONUAPLUS, CRP, CMP, TSH3, CBC, T4F #### [address] #### ALDOLASE, FRANCISCO,URINE, UPE RAND, SPE, RPR W RFX, FRANCISCO SERUM #### [facility] ,Protein Electro, Random UrineOrdered By: Rajan Moreland on 03-62-6610Lpmougt (U) [Mass/Vol]8.8 mg/dLNot Estab.Tr[facility]ull Regional Medical CenterComment on above:Performed By: #### PP, ESR, CK, ADDONUAPLUS, CRP, CMP, TSH3, CBC, T4F #### [address] #### ALDOLASE, FRANCISCO,URINE, UPE RAND, SPE, RPR W RFX, FRANCISCO SERUM #### [facility] ,Protein Electrophoresis, SerumOrdered By: Rajan Moreland on 99-62-9466Pdpkkjr [Mass/Vol]4.2 g/dL2.9-4.4FAdams County Regional Medical CenterComment on above: Performed By: #### PP, ESR, CK, ADDONUAPLUS, CRP, CMP, TSH3, CBC, T4F #### [address] #### ALDOLASE, FRANCISCO,URINE, UPE RAND, SPE, RPR W RFX, FRANCISCO SERUM #### [facility] ,Albumin/Globulin [Mass ratio]1.3 {ratio}0.7-1.7FAdams County Regional Medical CenterComment on above:Performed By: #### PP, ESR, CK, ADDONUAPLUS, CRP, CMP, TSH3, CBC, T4F #### [address] #### ALDOLASE, FRANCISCO,URINE, UPE RAND, SPE, RPR W RFX, FRANCISCO SERUM #### [facility] ,Globulin (S) [Mass/Vol]3.3 g/dL2.2-3.9[facility] on above:Performed By: #### PP, ESR, CK, ADDONUAPLUS, CRP, CMP, TSH3, CBC, T4F #### [address] #### ALDOLASE, FRANCISCO,URINE, UPE RAND, SPE, RPR W RFX, FRANCISCO SERUM #### [facility] ,Protein [Mass/Vol]7.5 g/dL6.0-8.5FAdams County Regional Medical CenterComment on above:Performed By: #### PP, ESR, CK, ADDONUAPLUS, CRP, CMP, TSH3, CBC, T4F #### [facility] [address] [place] [address] #### ALDOLASE, FRANCISCO,URINE, UPE RAND, SPE, RPR W RFX, FRANCISCO SERUM #### [facility] ,Protein Electrophoresis, Serumon 52-70-5117Qayqi-1-Globulin0.3 g/dLNormal 0.0-0.4The Critical Access Hospital Physician GroupComment on above:Performed By: #### PP, ESR, CK, ADDONUAPLUS, CRP, CMP, TSH3, CBC, T4F #### [address] #### ALDOLASE, FRANCISCO,URINE, UPE RAND, SPE, RPR W RFX, FRANCISCO SERUM #### [facility] ,Niyzh-4-Zulwcpek7.7 g/dLNormal0.4-1.0The Critical Access Hospital Physician GroupComment on above:Performed By: #### PP, ESR, CK, ADDONUAPLUS, CRP, CMP, TSH3, CBC, T4F #### [facility] [address] [place] [address] #### ALDOLASE, FRANCISCO,URINE, UPE RAND, SPE, RPR W RFX, FRANCISCO SERUM #### [facility] ,Beta Globulin1.1 g/dLNormal0.7-1.3The Critical Access Hospital Physician GroupComment on above:Performed By: #### PP, ESR, CK, ADDONUAPLUS, CRP, CMP, TSH3, CBC, T4F #### [facility] [address] [place] [address] #### ALDOLASE, FRANCISCO,URINE, UPE RAND, SPE, RPR W RFX, FRANCISCO SERUM #### [facility] ,Gamma Globulin1.2 g/dLNormal0.4-1.8The Critical Access Hospital Physician GroupComment on above:Performed By: #### PP, ESR, CK, ADDONUAPLUS, CRP, CMP, TSH3, CBC, T4F #### [address] #### ALDOLASE, FRANCISCO,URINE, UPE RAND, SPE, RPR W RFX, FRANCISCO SERUM #### [facility] ,M-SpikeNot ObservedNormalNot ObservedThe Critical Access Hospital Physician GroupComment on above:Performed By: #### PP, ESR, CK, ADDONUAPLUS, CRP, CMP, TSH3, CBC, T4F #### [address] #### ALDOLASE, FRANCISCO,URINE, UPE RAND, SPE, RPR W RFX, FRANCISCO SERUM #### [facility] ,SPE-NoteNormal.The Critical Access Hospital Physician GroupComment on above:Result Comment: Protein electrophoresis scan will follow via computer, mail, or felt cutter delivery.Performed By: #### PP, ESR, CK, ADDONUAPLUS, CRP, CMP, TSH3, CBC, T4F #### [address] #### ALDOLASE, FRANCISCO,URINE, UPE RAND, SPE, RPR W RFX, FRANCISCO SERUM #### [facility] ,Protein [Mass/volume] in Serum or PlasmaOrdered By: Rajan Moreland on 37-65-2554Kmqyrou [Mass/Vol]7.6 g/dL6.4-8.9[facility] Comment on above:Performed By: #### PP, ESR, CK, ADDONUAPLUS, CRP, CMP, TSH3, CBC, T4F #### [place] [address] [place] #### ALDOLASE, FRANCISCO,URINE, UPE RAND, SPE, RPR W RFX, FRANCISCO SERUM #### [facility] ,Protein.monoclonal/Protein.total in 24 hour Urine by ElectrophoresisOrdered By: Rajan Moreland on 71-50-4636Yvoylug.monoclonal Elph (24H U) [Mass fraction]Not observed %Not ObservedTrumbull Regional Medical CenterProthrombin time (PT) Ordered By: Rajan Moreland on 95-65-7162WD Coag (PPP) [Time]9.8 s9.0-12.9 [facility] Regional Medical CenterComment on above:A hematocrit value greater than 55% may lead to inaccurate results in coagulation testing. Patientshaving hematocrit values >55% require a special collection tube for coagulation studies. Please contact the laboratory at [phone] for redraw instructions. Result Comment: A hematocrit value greater than 55% may lead to inaccurate results in coagulation testing. Patients having hematocrit values >55% require a special collection tube for coagulation studies. Please contact the laboratory at [phone] for redraw instructions.Performed By: #### PP, ESR, CK, ADDONUAPLUS, CRP, CMP, TSH3, CBC, T4F #### [facility] [address] [place] [address] #### ALDOLASE, FRANCISCO,URINE, UPE RAND, SPE, RPR W RFX, FRANCISCO SERUM #### [facility] ,RPR w/rfx to Quant TP Abson 05-22-0720RHK, Rfx Quant RPRNon-ReactiveNormalNon ReactiveThe Critical Access Hospital Physician GroupComment on above:Result Comment: Performed at: - [facility] [address] [id number] Book Jacket Cover Machine Operator: Scott Freedman PhD, Phone: [phone] PERFORMED BY: [place] [address] PATHOLOGIST PROP MAKER LUZ ELENA MEDINA M.D.Performed By: #### PP, ESR, CK, ADDONUAPLUS, CRP, CMP, TSH3, CBC, T4F #### [facility] [address] [place] [address] #### ALDOLASE, FRANCISCO,URINE, UPE RAND, SPE, RPR W RFX, FRANCISCO SERUM #### [facility] ,Reagin Ab [Presence] in Serum by RPROrdered By: Rajan Morelnad on 08-16-2023 Reagin Ab RPR Ql (S)Non-ReactiveNon ReactiveTrumbull Regional Medical Center Comment on above:Performed at: [facility] [id number] Director: Scott Freedman PhD, Phone: [phone] dilute Emory's viper venom time (DRVVT) with reflex to confirmatory testOrdered By: Rajan Moreland on 46-58-0811aNQBY Coag (PPP) [Time]31.4 s0.0-47.0Aultman Hospitalcreening lupus anticoagulant-sensitive activated partial thromboplastin time (aPTT)Ordered By: Rajan Moreland on 03-95-7555zHVL.lupus sensitive Coag (PPP) [Time]28.4 sec0.0-43.5FAdams County Regional Medical Center Serum globulin measurement by calculation (mass/volume)Ordered By: Rajan Moreland on 37-05-8496Gzxhizah (S) [Mass/Vol]3.0 g/dLTrumbull Regional Medical CenterComment on above:Performed By: #### PP, ESR, CK, ADDONUAPLUS, CRP, CMP, TSH3, CBC, T4F #### [address] #### ALDOLASE, FRANCISCO,URINE, UPE RAND, SPE, RPR W RFX, FRANCISCO SERUM #### [facility] ,Serum homogeneous pattern antinuclear antibody (TONJA) titerOrdered By: Rajan Moreland on 82-30-4201Advdenngqc nuclear Ab pattern (S) [Titer]N/AFHolmes County Joel Pomerene Memorial Hospitalerum nuclear antibody titerOrdered By: Rajan Moreland on 93-81-5764Fekcsbc Ab (S) [Titer]Negative.[facility] Comment on above:Negative <1:80 Borderline 1:80 Positive >1:80ICAP nomenclature: AC-0For more information about Hep-2 cell patterns useANApatterns.org, the official website for theInternational Consensus on Antinuclear Antibody (TONJA)Patterns (ICAP).Performed at: [facility] [place], [id number] Director: Scott Freedman PhD, Phone: [phone] or plasma albumin/globulin mass ratioOrdered By: Rajan Moreland on 08-16-2023 Albumin/Globulin [Mass ratio]1.5 {ratio}[facility] Medical CenterComment on above:Performed By: #### PP, ESR, CK, ADDONUAPLUS, CRP, CMP, TSH3, CBC, T4F #### [address] #### ALDOLASE, FRANCISCO,URINE, UPE RAND, SPE, RPR W RFX, FRANCISCO SERUM #### [facility] ,Serum or plasma alpha 1 globulin measurement by electrophoresis (mass/volume) Ordered By: Rajan Moreland on 53-95-3671Tkyuw 1 globulin Elph [Mass/Vol]0.3 g/dL 0.0-0.4FHolmes County Joel Pomerene Memorial Hospitalerum or plasma alpha 2 globulin measurement by electrophoresis (mass/volume)Ordered By: Rajan Moreland on 65-10-9597Fqrtk 2 globulin Elph [Mass/Vol]0.7 g/dL0.4-1.0Aultman Hospitalerum or plasma anion gap determinationOrdered By: Rajan Moreland on 56-67-7728Safni gap [Moles/Vol]10.8 mmol/L6.0-15.0Tr[facility] Regional Medical CenterComment on above:Performed By: #### PP, ESR, CK, ADDONUAPLUS, CRP, CMP, TSH3, CBC, T4F #### [place] [address] [place] #### ALDOLASE, FRANCISCO,URINE, UPE RAND, SPE, RPR W RFX, FRANCISCO SERUM #### [facility] ,Serum or plasma beta globulin measurement by electrophoresis (mass/volume) Ordered By: Rajan Moreland on 58-31-8877Kywe globulin Elph [Mass/Vol]1.1 g/dL 0.7-1.3FHolmes County Joel Pomerene Memorial Hospitalerum or plasma chromatin antibody assay (units/volume)Ordered By: Rajan Moreland on 02-21-5134Jdsfugdmp Ab Qn0.2 AI 0.0-0.9Tr[facility] Medical CenterComment on above:Performed at: [address] [id number] Director: Scott Freedman PhD, Phone: [phone] or plasma complement C3 measurement (mass/volume)Ordered By: Rajan Moreland on 69-30-3376Gyvmyawall C3 [Mass/Vol]171 mg/nG67-757OpkxmimuiTrumbull Regional Medical CenterComment on above:Performed at: [address] [id number] Director: Scott Freedman PhD, Phone: [phone] or plasma complement C4 measurement (mass/volume)Ordered By: Rajan Moreland on 02-42-0969Obbzebcmcs C4 [Mass/Vol]27 mg/cU94-02AvaepcxolAultman Hospitalerum or plasma gamma globulin measurement by electrophoresis (mass/volume)Ordered By: Rajan Moreland on 36-99-0278Alwsp globulin Elph [Mass/Vol]1.2 g/dL0.4-1.8Aultman Hospitalerum or plasma thyroglobulin antibody assay (units/volume)Ordered By: Rajan Moreland on 76-14-6692Qhrunjlbouzqz Ab Qn[IU]/mL0.0-0.9[facility] Medical CenterComment on above:Thyroglobulin Antibody measured by Angel CoulterMethodologyIt should be noted that the presence of thyroglobulinantibodies may not be pathogenic nor diagnostic, especiallyat very low levels. The assay cms expert has found thatfour percent of individuals without evidence of thyroiddisease or autoimmunity will have positive TgAb levels upto 4 IU/mL.Performed at: [address] [id number] Director: Scott Freedman PhD, Phone: [phone] or plasma thyroperoxidase antibody assay (units/volume)Ordered By: Rajan Moreland on 20-46-3777QZT Ab Qn14 [IU]/mL0-34Tr[facility] Regional Medical CenterComment on above:Performed at: - [id number] [place], [place] [id number] Director: Scott Freedman PhD, Phone: [phone] [Moles/volume] in Serum or PlasmaOrdered By: Rajan Moreland on 24-65-9809Ywhuoj [Moles/Vol]137 mmol/D819-657AlvtagyluTrumbull Regional Medical CenterComment on above:Performed By: #### PP, ESR, CK, ADDONUAPLUS, CRP, CMP, TSH3, CBC, T4F #### [facility] [address] [place] [address] #### ALDOLASE, FRANCISCO,URINE, UPE RAND, SPE, RPR W RFX, FRANCISCO SERUM #### [facility] ,Specific gravity Auto test strip (U) [Rel density]Ordered By: Rajan Moreland on 12-13-2443Gdguvovo gravity (U) [Rel density]1.0241.001-1.030Aultman Hospitalquamous epithelial cells detection in urine sediment by light microscopyOrdered By: Rajan Moreland on 55-71-1401Nbywaptznv cells.squamous LM Ql (Urine sed)None seen [HPF]0-2FAdams County Regional Medical CenterTT plasOrdered By: Rajan Moreland on 98-79-6192Ijrzzcqj time Coag (PPP) [Time]18.8 sec0.0-23.0 [facility] Medical CenterThyroid Peroxidase Antibodieson 08-16-2023 Thyroid Peroxidase Txoyefetee80Mmtypf4-24Zci Critical Access Hospital Physician GroupComment on above:Result Comment: Performed at: - [facility] [address] [place], [place] [id number] Book Jacket Cover Machine Operator: Scott Freedman PhD, Phone: [phone] By: #### PP, ESR, CK, ADDONUAPLUS, CRP, CMP, TSH3, CBC, T4F #### [facility] [address] [place] [address] [place] #### ALDOLASE, FRANCISCO,URINE, UPE RAND, SPE, RPR W RFX, FRANCISCO SERUM #### [facility] ,Thyrotropin [Units/volume] in Serum or PlasmaOrdered By: Rajan Aniceto on 69-01-5324SWQ Qn1.48 m[IU]/L0.45-5.33[facility] Medical CenterComment on above:Result Comment: PERFORMED BY: [place] [address] PATHOLOGIST PROP MAKER LUZ ELENA MEDINA M.D.Performed By: #### PP, ESR, CK, ADDONUAPLUS, CRP, CMP, TSH3, CBC, T4F #### [facility] [address] [place] [address] #### ALDOLASE, FRANCISCO,URINE, UPE RAND, SPE, RPR W RFX, FRANCISCO SERUM #### [facility] ,Thyroxine (T4) free [Mass/volume] in Serum or PlasmaOrdered By: Rajan Moreland on 97-06-4729Fszp T4 [Mass/Vol]0.86 ng/dL0.61-1.12[facility] Medical CenterComment on above:Performed By: #### PP, ESR, CK, ADDONUAPLUS, CRP, CMP, TSH3, CBC, T4F #### [facility] [address] [place] [address] #### ALDOLASE, FRANCISCO,URINE, UPE RAND, SPE, RPR W RFX, FRANCISCO SERUM #### [facility] ,Urea nitrogen [Mass/volume] in Serum or PlasmaOrdered By: Rajan Moreland on 59-21-4994Qmmh nitrogen [Mass/Vol]14 mg/dL7-25[facility] Comment on above:Performed By: #### PP, ESR, CK, ADDONUAPLUS, CRP, CMP, TSH3, CBC, T4F #### [place] [address] [place] #### ALDOLASE, FRANCISCO,URINE, UPE RAND, SPE, RPR W RFX, FRANCISCO SERUM #### [facility] ,Urine alpha 1 globulin/total protein by electrophoresisOrdered By: Rajan Moreland on 57-03-3158Fwbau 1 globulin Elph (U) [Mass fraction]4.2 %.[facility] Medical CenterUrine alpha 2 globulin/total protein ratio by electrophoresisOrdered By: Rajan Moreland on 39-32-7473Fuvrn 2 globulin Elph (U) [Mass fraction]21.3 %.[facility] Medical CenterUrine beta globulin measurement by electrophoresis (mass/volume)Ordered By: Rajan Moreland on 84-77-8896Qnsl globulin Elph (U) [Mass/Vol]22.8 %.[facility] CenterUrine clarity by refractometry automatedOrdered By: Rajan Moreland on 53-15-8915Neynbgv Refractometry automated (U)ClearCleMercy Health Perrysburg HospitalUrine glucose measurement by automated test strip (mass/volume) Ordered By: Rajan Moreland on 77-46-5645Wclnhto Auto test strip (U) [Mass/Vol] 500 mg/dLMarion HospitalUrine hemoglobin detection by automated test stripOrdered By: Rajan Moreland on 82-97-9171Fgzxhqfzvw Auto test strip Ql (U)NegativeNegSt. Vincent HospitalUrine leukocyte esterase detection by automated test stripOrdered By: Rajan Moreland on 60-65-6250Rjbonnyzo esterase Auto test strip Ql (U)NegativeNegSt. Vincent HospitalUrine pH measurement by automated test stripOrdered By: Rajan Moreland on 58-76-2804gP (U)6.5 [pH]5.0-9.0[facility] Medical CenterComment on above:Order Comment: Name Collection Type:: Clean-Voided MidstreamPerformed By: #### PP, ESR, CK, ADDONUAPLUS, CRP, CMP, TSH3, CBC, T4F #### [facility] [address] [place] [address] #### ALDOLASE, FRANCISCO,URINE, UPE RAND, SPE, RPR W RFX, FRANCISCO SERUM #### [facility] ,Urobilinogen Auto test strip (U) [Mass/Vol]Ordered By: Rajan Moreland on 73-26-9341Qkfjwwcpgvou (U) [Mass/Vol]Normal mg/dLNormalTrumbull Regional Medical CenteraPTT.lupus sensitive/aPTT.lupus sensitive W excess phospholipid (screen to confirm raOrdered By: Rajan Moreland on 57-05-5114oRXN.lupus sensitive/aPTT.lupus sensitive W excess phospholipid Coag (PPP) [Ratio]1.16 Ratio0.00-1.34[facility] Medical CenterBasophils Auto (Bld) [#/Vol]on 22-86-2834Kwxtpatfe (Bld) [#/Vol]0.0 10 3/uL0.0-0.1FAdams County Regional Medical CenterBasophils/100 WBC Auto (Bld)on 40-01-9909Laalyregi/100 WBC (Bld)0.6 % 0.2-2.0[facility] CenterEosinophils/100 WBC Auto (Bld)on 47-51-4416Ngmabiurrnj/100 WBC (Bld)1.5 %0.9-7.0[facility] Erythrocyte distribution width Auto (RBC) [Ratio]on 74-95-3199Vctetvezowu distribution width (RBC) [Ratio]12.5 %11.0-15.0[facility] Hematocrit Auto (Bld) [Volume fraction]on 25-45-1627Eiloqhiuit (Bld) [Volume fraction]43.9 %42.0-54.0[facility] CenterHemoglobin [Mass/volume] in Bloodon 61-24-3625Xoxuekojgw (Bld) [Mass/Vol]14.1 g/dL14.0-18.0 [facility] CenterLaboratory - Hematology and Cell countson 54-93-0057JFJ (Bld) [Velocity]10 mm/h<=20[facility] Immature granulocytes/100 WBC (Bld)0.3 %0.0-0.5FAdams County Regional Medical Center Leukocytes [#/volume] corrected for nucleated erythrocytes in Blood by Automated counon 19-59-8976QIK corrected for nucl RBC Auto (Bld) [#/Vol]7.3 10 3/uL 4.0-11.0[facility] CenterLymphocytes Auto (Bld) [#/Vol]on 83-08-6737Htfysdtztvh (Bld) [#/Vol]1.0 10 3/uL1.2-3.8[facility] CenterLymphocytes/100 WBC Auto (Bld)on 61-67-3941Yjcutkulhbj/100 WBC (Bld)13.7 % 20.5-60.0[facility] HospitalH Auto (RBC) [Entitic mass]on 86-67-3579PXV (RBC) [Entitic mass]27.1 pg25.9-34.0[facility] HospitalHC Auto (RBC) [Mass/Vol]on 09-10-4496SOOM (RBC) [Mass/Vol]32.1 g/dL 29.9-35.2FFort Hamilton HospitalV Auto (RBC) [Entitic vol]on 16-93-1431NMF (RBC) [Entitic vol]84.3 fL80.0-94.0[facility] CenterMonocytes Auto (Bld) [#/Vol]on 12-50-7336Ddwkihfav (Bld) [#/Vol]0.4 10 3/uL0.3-0.8[facility] CenterMonocytes/100 WBC Auto (Bld)on 26-93-7254Anagdxsxh/100 WBC (Bld)6.1 %1.7-12.0[facility] Neutrophils Auto (Bld) [#/Vol]on 52-05-6602Stigcrsjovj (Bld) [#/Vol]5.7 10 3/uL 1.4-6.5FAdams County Regional Medical CenterNeutrophils/100 WBC Auto (Bld)on 72-41-0446Asofowzlhpy/100 WBC (Bld)77.8 %43.0-75.0[facility] CenterNo Panel Informationon 39-79-8601Zdlq-Double Strand DNA Khtvwedr79 [IU]/mL 0-9[facility] CenterComment on above:Negative <5 Equivocal 5 - 9 Positive >9Anti-Nuclear Antibody InterpretComment.[facility] CenterComment on above:Autoantibody Disease Association Conditi on Frequency ---------Antinuclear Antibody, SLE, mixed connectiveDirect (TONJA-D) tissue diseases ---------dsDNA SLE 40 - 60% ---------Chromatin Drug induced SLE 90% SLE 48 - 97% ---------SSA (Ro) SLE 25 - 35% Sjogren's Syndrome 40 - 70% Lupus 100% ---------SSB (La) SLE 10% Sjogren's Syndrome 30% ---------Sm (anti-Kerr) SLE 15 - 30% ---------AUDIT SPECIALIST Mixed Connective TissueDisease 95%(U1 nRNP, SLE 30 - 50%anti- ribonucleoprotein) Polymyositis and/or Dermatomyositis 20% ---------Scl-70 (antiDNA Scleroderma (diffuse) 20 - 35%topoisomerase) Crest 13% ---------Niru-1 Polymyositis and/or Dermatomyositis 20 - 40% ---------Centromere B Scleroderma - Crest variant 80%Performed at: - [facility] [id number] Director: Scott Freedman PhD, Phone: [phone]-Vfqwwyzu Protein, Quantitative<0.50 mg/dL<=0.50[facility] CenterEosinophils # (Auto)0.1 10 3/uL0.0-0.7FAdams County Regional Medical CenterImmature Granulocyte # (Auto)0.02 10 3/uL0.00-0.03[facility] CenterRNP Antibody<0.2 AI 0.0-0.9[facility] CenterPlatelet mean volume Auto (Bld) [Entitic vol]on 30-45-0397Lhflciey mean volume (Bld) [Entitic vol]9.0 fL9.5-13.5 [facility] CenterPlatelets Auto (Bld) [#/Vol]on 06-27-2023 Platelets (Bld) [#/Vol]296 10 3/cM703-835WyzmzcwpaTrumbull Regional Medical CenterRBC Auto (Bld) [#/Vol]on 06-35-3188YEH (Bld) [#/Vol]5.21 10 6/uL4.70-6.10[facility]ult[facility] Hospitalerum Sjogrens syndrome-A extractable nuclear antibody assay (units/volume)on 99-43-5987Ziwfuwls syndrome-A extractable nuclear Ab Qn (S)<0.2 AI0.0-0.9[facility] Hospitalerum Sjogrens syndrome-B extractable nuclear antibody assay (units/volume)on 30-48-0064Rhaaiauv syndrome- B extractable nuclear Ab Qn (S)<0.2 AI0.0-0.9[facility] Serum Kerr extractable nuclear antigen (ABAD) antibody assay (units/volume)on 26-86-0986Gkdhn extractable nuclear Ab Qn (S)<0.2 AI0.0-0.9[facility] Hospitalerum or plasma cyclic adenosine monophosphate measurement (moles/volume)on 84-84-4928Bfprrvedr monophosphate.cyclic [Moles/Vol]3 units0-19 [facility] CenterComment on above:Negative <20 Weak positive 20 - 39 Moderate positive 40 - 59 Strong positive >59Performed at:[address] [place], [place] [id number] Director: Scott Freedman PhD, Phone: [phone] or plasma free cefuroxime measurement (mass/volume)on 60-13-4581Umkoqlvbix free [Mass/Vol]PositiveNegativeAultman Hospitalerum or plasma rheumatoid factor measurement (units/volume)on 06-27-2023 Rheumatoid factor Qn[IU]/mL<14.0[facility] CenterComment on above:Performed at: [address] [place], [place] [id number] Director: Scott Freedman PhD, Phone: [phone] By: Jeimma Alvarenga on [id number] [Mass/Vol]203 mg/oVYwdm73 - 99 mg/dLINTEGRIS [facility]AM[facility] [place] SubsectionComment on above:Result Comment: No Coverage Given Cleaned MeterPOC Device [id number] 1Invalid Interpretation CodeINTEGRIS MIAMI HOSPITAL – [place] POC SubsectionPOC User [id number] 1Invalid Interpretation CodeINTEGRIS [facility] [place] [facility] Subsection POC UsernameRESOR, [email or web address] Interpretation CodeINTEGRIS [facility]OSP[facility] [place] [facility] SubsectionCHEMISTRY Ordered By: SYSTEM SYSTEM on [id number] gap [Moles/Vol]10 mmol/LNormal6 - 16 mEq/LRemisol ChemCalcium [Mass/Vol]9.6 mg/dLNormal8.9 - 11.1 mg/dLRemisol ChemChloride [Moles/Vol]103 mmol/VQscenl959 - 111 mmol/LRemisol ChemCO2 [Moles/Vol]31 mmol/FPlelpz52 - 31 mmol/LRemisol ChemCreatinine [Mass/Vol]0.8 mg/dLNormal0.5 - 1.3 mg/dLRemisol ChemeGFRmL/min/1.73 l8Iytryn>=59mL/min/1.73 m2 Remisol ChemGlucose [Mass/Vol]169 mg/rGHrsbay75 - 199 mg/dLRemisol ChemPotassium [Moles/Vol]4.3 mmol/LNormal3.5 - 5.3 mmol/LRemisol ChemSodium [Moles/Vol]140 mmol/WBqolub122 - 145 mmol/LRemisol ChemUrea nitrogen [Mass/Vol]14 mg/dLNormal5 - 21 mg/dLRemisol ChemUrea nitrogen/Creatinine [Mass ratio]18 mg/izUotrve50 - 20 Remisol ChemHEMATOLOGYOrdered By: SYSTEM SYSTEM on 11-45-9582Lnhqedhcg/100 WBC (Bld)0.6 %Normal0.0 - 2.0 %[facility] HemeAutoSSBasophils/Leukocytes Auto (Bld) [Pure # fraction]0.0 E9/LNormal0.0 - 0.2 E9/LFTMC HemeAutoSSEosinophils/100 WBC (Bld) 1.8 %Normal0.0 - 8.0 %[facility] HemeAutoSSEosinophils/Leukocytes Auto (Bld) [Pure # fraction]0.1 E9/LNormal0.0 - 0.5 E9/LFTMC HemeAutoSSLymphocytes/100 WBC (Bld) 19.3 %Emsraw15.0 - 50.0 %[facility] HemeAutoSSLymphocytes/Leukocytes Auto (Bld) [Pure # fraction]1.3 E9/LNormal1.0 - 4.0 E9/LFTMC HemeAutoSSMonocytes/100 WBC (Bld)8.4 %Normal4.0 - 14.0 %[facility] HemeAutoSSMonocytes/Leukocytes Auto (Bld) [Pure # fraction]0.6 E9/LNormal0.2 - 1.0 E9/LFTMC HemeAutoSSNeutrophils/100 WBC (Bld) 69.9 %Morlqu80.0 - 75.0 %[facility] HemeAutoSSNeutrophils/Leukocytes Auto (Bld) [Pure # fraction]4.6 E9/LNormal2.0 - 7.5 E9/LFTMC HemeAutoSSHEMATOLOGYOrdered By: Cher Echeverria on 05-76-3514Vayrikpjmyc distribution width (RBC) [Ratio]13.7 % Bgalng69.9 - 14.2 %[facility] HemeAutoSSHematocrit (Bld) [Volume fraction]43.0 %Normal 37.7 - 49.0 %[facility] HemeAutoSSHemoglobin (Bld) [Mass/Vol]14.6 g/hEZbivek72.5 - 17.5 gm/dLFTMC HemeAutoSSMCH (RBC) [Entitic mass]28.3 ljWztiuh90.0 - 34.0 pgFTMC HemeAutoSSMCHC (RBC) [Mass/Vol]33.9 g/fOPcayum96.4 - 36.0 gm/dLFTMC HemeAutoSS MCV (RBC) [Entitic vol]83.3 nCZilajj58.0 - 100.0 fLFTMC HemeAutoSSPlatelet mean volume (Bld) [Entitic vol]7.4 fLNormal6.4 - 10.8 fLFTMC HemeAutoSSPlatelets (Bld) [#/Vol]315.0 E9/BPaeghb417.0 - 500.0 E9/LFT[facility] HemeAutoSSRBC (Bld) [#/Vol] 5.2 E12/LNormal4.3 - 5.9 E12/LFTMC HemeAutoSSWBC corrected for nucl RBC Auto (Bld) [#/Vol]6.6 E9/LNormal4.0 - 11.0 E9/LFC HemeAutoSSCBC W MANUAL DIFFon 29-82-4601CKSFPQDM LYMPH #NormalThe Vallejo HospitalComment on above:Performed By: #### CBC #### [facility] [address] [place] [address] Dr. Wai VallejoATYPICAL LYMPH %NormalThe Vallejo HospitalComment on above: Performed By: #### CBC #### [facility] [address] [address] [address] Wai Bass #0.0 103/ulNormal0.0-0.3The Vallejo HospitalComment on above:Performed By: #### CBC #### [facility] [address] [place] [address] Dr. Wai Bass %0 %Normal0-5The Vallejo HospitalComment on above:Performed By: #### CBC #### [facility] [address] [place] [address] Dr. Wai Britt #0.00 103/ulNormal0.00-0.10The [facility] SouthComment on above:Performed By: #### CBC #### [facility] [address] [place] [address] Dr. Wai Britt %0.0 %Critically low0.2-2.0The [facility] SouthComment on above:Performed By: #### CBC #### [facility] [address] [place] [address] Dr. Wai London #NormalThe Vallejo HospitalComment on above:Performed By: #### CBC #### [facility] [address] [place] [address] Dr. Wai London %NormalThe Vallejo HospitalComment on above:Performed By: #### CBC #### [facility] [address] [place] [address] Dr. Wai ArredondoRRECTED WBCNormal4.0-11.0The Vallejo HospitalComment on above: Performed By: #### CBC #### [facility] [address] [place] [address] Dr. Wai Santos #0.00 103/ulNormal0.00-0.70The [facility] SouthComment on above:Performed By: #### CBC #### [facility] [address] [place] [address] Dr. Wai Santos%0.0 %Critically low0.9-7.0The [facility] SouthComment on above:Performed By: #### CBC #### [facility] [address] [place] [address] Dr. Wai LopezT40.4 %Critically low42.0-54.0The [facility] SouthComment on above:Performed By: #### CBC #### [facility] [address] [place] [address] Dr. Wai VallejoHGB13.8 g/dlCritically low14.0-18.0The [facility]Comment on above:Performed By: #### CBC #### [facility] [address] [place] [address] Dr. Wai Tabor #0.62 103/ulCritically low1.20-3.80The [facility] Comment on above:Performed By: #### CBC #### [facility] [address] [place] [address] Dr. Wai Tabor%6.0 %Critically low20.5-60.0The [facility] SouthComment on above:Performed By: #### CBC #### [facility] [address] [place] [address] Dr. Wai ArreolaH28.2 zfRkriaj89.9-34.0The [facility] SouthComment on above: Performed By: #### CBC #### [facility] [address] [place] [address] Dr. Wai ArreolaHC34.2 g/zzCwcmln09.9-35.2The [facility] SouthComment on above:Performed By: #### CBC #### [facility] [address] [place] [address] Dr. Wai ArreolaV82.4 uMDetqhu08.0-94.0The [facility] SouthComment on above: Performed By: #### CBC #### [facility] [address] [address] [address] Wai FranksOCYTE #NormalMetrohealth Cleveland Heights Medical CenterComment on above: Performed By: #### CBC #### [facility] [address] [address] [address] Wai FranksOCYTE %NormalTrihealth Mccullough-Hyde Memorial Hospital HospitalComment on above: Performed By: #### CBC #### [facility] [address] [address] [address] Wai Celeste#0.52 103/ulNormal0.30-0.80The [facility] SouthComment on above:Performed By: #### CBC #### [facility] [address] [address] [address] Wai Celeste%5.0 %Normal1.7-12.0The [facility] SouthComment on above: Performed By: #### CBC #### [facility] [address] [address] [address] Wai MoralezV9.6 fLNormal9.5-13.5The [facility] SouthComment on above: Performed By: #### CBC #### [facility] [address] [address] [address] Wai Landry #NormalMetrohealth Cleveland Heights Medical CenterComselect specialty [facility] on above:Performed By: #### CBC #### [facility] [address] [address] [address] Wai Landry %NormalMetrohealth Cleveland Heights Medical CenterComment on above:Performed By: #### CBC #### [facility] [address] [address] [address] Wai MaysBCNormalThe [facility] SouthComselect specialty hospital[facility] on above:Performed By: #### CBC #### [facility] [address] [address] [address] Wai RuizT268 103/bqRxkzun152-975Tpd [facility] SouthComment on above: Performed By: #### CBC #### [facility] [address] [address] [address] Wai VallejoRBC4.90 106/ulNormal4.70-6.10The [facility] SouthComment on above:Performed By: #### CBC #### [facility] [address] [address] [address] Wai VallejoRDW12.3 %Nvtedm09.0-15.0The [facility] SouthComment on above: Performed By: #### CBC #### [facility] [address] [address] [address] Wai Medeiros #9.17 103/ulCritically high1.40-6.50The [facility] Comment on above:Performed By: #### CBC #### [facility] [address] [address] [address] Wai Medeiros %89.0 %Critically high43.0-75.0The [facility] SouthComment on above:Performed By: #### CBC #### [facility] [address] [address] [address] Wai VallejoWBC10.3 103/ulNormal4.0-11.0The [facility] SouthComment on above:Performed By: #### CBC #### [facility] [address] [address] [address] Wai VallejoTerry BRAIN WO CONon 11-07-6601TBQ BRAIN WO CONEXAMINATION: MRI BRAIN WO CON, [...] Electronically authenticated by: STEPHY DELANEY Date: 2022-06-20 08:23[facility]POINT OF CARE GLUCOSEon 78-54-1398Xtqhcms [Mass/Vol]318 mg/dL Critically llaj79-837BniMetrohealth Cleveland Heights Medical CenterComment on above:Performed By: #### POCGLUC #### [facility] [address] [place] [address] Dr. Wai VallejoGlucose [Mass/Vol]212 mg/dLCritically phop56-471Xuc [facility] SouthComment on above:Performed By: #### POCGLUC #### [facility] [address] [place] [address] Dr. Wai VallejoGlucose [Mass/Vol]359 mg/dLCritically dgum51-203OcyMetrohealth Cleveland Heights Medical CenterComment on above:Performed By: #### CBC #### [facility] [address] [place] [address] Dr. Wai VallejoPROF CHEM 8 (BAS METB)on 72-05-3457Iggrt gap [Moles/Vol]12.0 mmol/LNormalMetrohealth Cleveland Heights Medical CenterComment on above:Performed By: #### BMP #### [facility] [address] [place] [address] Dr. Wai VallejoCalcium [Mass/Vol]9.3 mg/dLNormal8.5-10.1[facility] Comment on above:Performed By: #### BMP #### [facility] [address] [place] [address] Dr. Wai VallejoChloride [Moles/Vol]104 mmol/HFjtjbe28-933WskMetrohealth Cleveland Heights Medical Center Comment on above:Performed By: #### BMP #### [facility] [address] [place] [address] Dr. Wai VallejoCO2 [Moles/Vol]28.2 mmol/ZHxxbwy02.0-32.0[facility] Comment on above:Performed By: #### BMP #### [facility] [address] [place] [address] Dr. Wai VallejoCreatinine [Mass/Vol]0.85 mg/dLNormal0.70-1.30The [facility] SouthComment on above:Performed By: #### BMP #### [facility] [address] [place] [address] Dr. Wai IngramGFR-AF ARGENTINE>60Normal>=60The [facility] SouthComment on above:Performed By: #### BMP #### [facility] [address] [place] [address] Dr. Wai IngramGFR-NON AF ARGENTINE>60Normal>=60The [facility] SouthComment on above:Performed By: #### BMP #### [facility] [address] [place] [address] Dr. Wai VallejoGlucose [Mass/Vol]263 mg/dLCritically ysbr29-434Moy [facility] SouthComment on above:Performed By: #### BMP #### [facility] [address] [place] [address] Dr. Wai VallejoPotassium [Moles/Vol]4.2 mmol/LNormal3.5-5.1The [facility] Comment on above:Performed By: #### BMP #### [facility] [address] [place] [address] Dr. Wai VallejoSodium [Moles/Vol]140 mmol/VAypgdx811-424Dph [facility] Comment on above:Performed By: #### BMP #### [facility] [address] [place] [address] Dr. Wai VallejoUrea nitrogen [Mass/Vol]18.0 mg/dLNormal7.0-18.0The [facility] SouthComment on above:Performed By: #### BMP #### [facility] [address] [place] [address] Dr. Wai Chiu nitrogen/Creatinine [Mass ratio]21.2 mg/mgNormalThe [facility] SouthComment on above:Performed By: #### BMP #### [facility] [address] [place] [address] Dr. Wai VallejoXR FOREIGN BODY EYEon 94-31-7740YE FOREIGN BODY EYEEXAMINATION: XR FOREIGN BODY EYE HISTORY: Foreign body in eye COMPARISON: No relevant comparison available. FINDINGS: ORBITS: Negative for a metallic foreign body. OTHER: Negative. IMPRESSION: 1. No metallic foreign body within the orbits. Electronically authenticated by: STEPHY DELANEY Date: 2022-06-20 07:54[facility] AUTO DIFFon 34-65-5223CDLS #0.0 103/ulNormal0.0-0.1The [facility] SouthComment on above:Performed By: #### CBC #### [facility] [address] [place] [address] Dr. Wai VallejoBasophils/100 WBC (Bld)0.4 %Normal0.2-2.0[facility] Comment on above:Performed By: #### CBC #### [facility] [address] [place] [address] Dr. Wai Gonzales #0.0 103/ulNormal0.0-0.7The [facility]Comment on above: Performed By: #### CBC #### [facility] [address] [address] [address] Wai Ingramosinophils/100 WBC (Bld)0.4 %Critically low0.9-7.0The [facility] SouthComment on above:Performed By: #### CBC #### [facility] [address] [address] [address] Wai Ingramrythrocyte distribution width (RBC) [Ratio]12.3 %Kagkjf00.0-15.0 The [facility] SouthComment on above:Performed By: #### CBC #### [facility] [address] [place] [address] Dr. Wai VallejoHematocrit (Bld) [Volume fraction]43.7 %Aexksh70.0-54.0The [facility] SouthComment on above:Performed By: #### CBC #### [facility] [address] [place] [address] Dr. Wai VallejoHemoglobin (Bld) [Mass/Vol]15.1 g/yWGelfmh06.0-18.0[facility] CenterComment on above:Performed By: #### CBC #### [facility] [address] [place] [address] Dr. Wai Lyon #0.01 10e3/ulNormal0.00-0.03The [facility] SouthComment on above:Performed By: #### CBC #### [facility] [address] [place] [address] Dr. Wai Lyon %0.1 %Normal0.0-0.5The [facility] SouthComment on above: Performed By: #### CBC #### [facility] [address] [place] [address] Dr. Wai Velarde #1.2 103/ulNormal1.2-3.8The [facility]Comment on above:Performed By: #### CBC #### [facility] [address] [place] [address] Dr. Wai Tatumhocytes/100 WBC (Bld)14.6 %Critically low20.5-60.0The [facility]Comment on above:Performed By: #### CBC #### [facility] [address] [place] [address] Dr. Wai NegroUAL DIFF REQNONormalThe [facility] SouthComment on above: Performed By: #### CBC #### [facility] [address] [place] [address] Dr. Wai Arreola (RBC) [Entitic mass]28.3 afIvbbvk85.9-34.0The [facility]Comment on above:Performed By: #### CBC #### [facility] [address] [place] [address] Dr. Wai Arreola (RBC) [Mass/Vol]34.6 g/sINojjgs30.9-35.2The [facility]Comment on above:Performed By: #### CBC #### [facility] [address] [place] [address] Dr. Wai Arreola (RBC) [Entitic vol]81.8 zOEktosq71.0-94.0The [facility]Comment on above:Performed By: #### CBC #### [facility] [address] [place] [address] Dr. Wai Fitzpatrick #0.5 103/ulNormal0.3-0.8The [facility]Comment on above:Performed By: #### CBC #### [facility] [address] [place] [address] Dr. Wai Meadowsocytes/100 WBC (Bld)6.5 %Normal1.7-12.0The [facility] Comment on above:Performed By: #### CBC #### [facility] [address] [place] [address] Dr. Wai Gonzales #6.5 103/ulNormal1.4-6.5The [facility]Comment on above:Performed By: #### CBC #### [facility] [address] [place] [address] Dr. Wai Glezutrophils/100 WBC (Bld)78.0 %Critically high43.0-75.0The [facility]Comment on above:Performed By: #### CBC #### [facility] [address] [place] [address] Dr. Wai Fenton mean volume (Bld) [Entitic vol]9.0 fLCritically low 9.5-13.5The [facility]Comment on above:Performed By: #### CBC #### [facility] [address] [place] [address] Dr. Wai VallejoPLT310 103/qvGmrcat831-184Isv [facility] SouthComment on above: Performed By: #### CBC #### [facility] [address] [place] [address] Dr. Wai VallejoRBC5.34 106/ulNormal4.70-6.10The [facility]Comment on above:Performed By: #### CBC #### [facility] [address] [place] [address] Dr. Wai VallejoWBC8.3 103/ulNormal4.0-11.0The [facility]Comment on above: Performed By: #### CBC #### [facility] [address] [address] [address] Wai VallejoCT STROKE HEAD WOon 45-67-5684FF STROKE HEAD WOHEAD CT WITHOUT CONTRAST: 06/19/2022 [...] Electronically authenticated by: CHAVA ARMSTRONG Date: 2022-06-19 10:49NoTrumbull Memorial HospitalCTA NECK WO W CONon 53-11-9689JWA NECK WO W CONEXAMINATION: CTA HEAD WO [...] Electronically authenticated by: ALFONSO BELL Date: 2022-06-19 15:35NormKettering Health HamiltonCovid-19 PCR (CVDTBH)on 69-15-0157MATL-CoV-2 (COVID-19) RNA TC+probe Ql (Unsp spec)Not detectedNormalNOT DETECTEDMetrohealth [facility] Center Comment on above:Result Comment: When diagnostic testing [...] for this test is supported by the [place] of Health and Human Service's declaration that [...] longer be used).Performed By: #### CBC #### [facility] [address] [place] [address] Dr. aWi VallejoPOINT OF CARE GLUCOSEon 44-17-0828Jwzftrs [Mass/Vol]511 mg/dL Critically etyp69-818DyyMercy Health St. Charles Hospitalment on above:Result Comment: Will Repeat TestPerformed By: #### POCGLUC #### [facility] [address] [place] [address] Dr. Wai VallejoGlucose [Mass/Vol]489 mg/dLCritically gfij80-415AmnGood Samaritan Hospital on above:Performed By: #### POCGLUC #### [facility] [address] [place] [address] Dr. Wai VallejoGlucose [Mass/Vol]361 mg/dLCritically fpsz06-578TnqMetrohealth Cleveland Heights Medical CenterComment on above:Performed By: #### CBC #### [facility] [address] [place] [address] Dr. Wai FrancisF 14(COMP METB)on 15-17-3585Dwvxnpo [Mass/Vol]4.1 g/dLNormal 3.4-5.0The [facility] SouthComment on above:Performed By: #### CMP #### [facility] [address] [place] [address] Dr. Wai VallejoAlbumin/Globulin [Mass ratio]1.2 {ratio}NormalThe [facility] SouthComment on above:Performed By: #### CMP #### [facility] [address] [place] [address] Dr. Wai EppersonP [Catalytic activity/Vol]68 U/MZrbgpf90-728Xim [facility] SouthComment on above:Performed By: #### CMP #### [facility] [address] [place] [address] Dr. Wai EppersonT [Catalytic activity/Vol]33 U/LSsuotl75-94Dij [facility] SouthComment on above:Performed By: #### CMP #### [facility] [address] [place] [address] Dr. Wai Villasenor gap [Moles/Vol]13.4 mmol/LNormalThe [facility] Comment on above:Performed By: #### CMP #### [facility] [address] [place] [address] Dr. Wai VallejoAST [Catalytic activity/Vol]21 U/TDtupiz80-13Wfv [facility] SouthComment on above:Performed By: #### CMP #### [facility] [address] [place] [address] Dr. Wai VallejoBilirubin [Mass/Vol]1.5 mg/dLCritically high0.2-1.0The [facility] SouthComment on above:Performed By: #### CMP #### [facility] [address] [place] [address] Dr. Wai VallejoCalcium [Mass/Vol]9.3 mg/dLNormal8.5-10.1[facility] Comment on above:Performed By: #### CMP #### [facility] [address] [address] [address] Wai VallejoChloride [Moles/Vol]99 mmol/PAntleg72-388Qbf [facility] Comment on above:Performed By: #### CMP #### [facility] [address] [address] [address] Wai VallejoCO2 [Moles/Vol]23.9 mmol/HUiboxx35.0-32.0The [facility] Comment on above:Performed By: #### CMP #### [facility] [address] [address] [address] Wai VallejoCreatinine [Mass/Vol]0.87 mg/dLNormal0.70-1.30The [facility] SouthComment on above:Performed By: #### CMP #### [facility] [address] [address] [address] Carreno ChangEGFR-AF ARGENTINE>60Normal>=60The [facility] SouthComment on above:Performed By: #### CMP #### [facility] [address] [address] [address] Wai IngramGFR-NON AF ARGENTINE>60Normal>=60The [facility] SouthComment on above:Performed By: #### CMP #### [facility] [address] [address] [address] Wai VallejoGlobulin (S) [Mass/Vol]3.5 g/dLNormalThe [facility] SouthComment on above:Performed By: #### CMP #### [facility] [address] [address] [address] Wai VallejoGlucose [Mass/Vol]306 mg/dLCritically kqxt84-093Zgt [facility] SouthComment on above:Performed By: #### CMP #### [facility] [address] [address] [address] Wai VallejoPotassium [Moles/Vol]3.3 mmol/LCritically low3.5-5.1The [facility] SouthComment on above:Performed By: #### CMP #### [facility] [address] [place] [address] Dr. Wai VallejoProtein [Mass/Vol]7.6 g/dLNormal6.4-8.2The [facility] Comment on above:Performed By: #### CMP #### [facility] [address] [place] [address] Dr. Wai VallejoSodium [Moles/Vol]133 mmol/LCritically jll583-405Ylo [facility] SouthComment on above:Performed By: #### CMP #### [facility] [address] [place] [address] Dr. Wai VallejoUrea nitrogen [Mass/Vol]13.0 mg/dLNormal7.0-18.0The [facility] SouthComment on above:Performed By: #### CMP #### [facility] [address] [place] [address] Dr. Wai VallejoUrea nitrogen/Creatinine [Mass ratio]14.9 mg/mgNormalThe [facility] SouthComment on above:Performed By: #### CMP #### [facility] [address] [place] [address] Dr. Wai Vargas [id number] Coag (PPP) [Relative time]0.93 {INR} NormalThe [facility] SouthComment on above:Performed By: #### PTT, PT #### [facility] [address] [place] [address] Dr. Wai Peguero GUIDELINESSEE BELOWTriHealthComment on above:Result Comment: DESIRED INR: 2.0 - 3.0 CONDITIONS NOT LISTED BELOW 2.5 - 3.5 FOR PROSTHETIC HEART VALVE REPLACEMENT 2.5 - 3.5 RECURRENT THROMBOSIS Performed By: #### PTT, PT #### [facility] [address] [place] [address] Dr. Wai VallejoPT Coag (PPP) [Time]9.9 sNormal9.0-11.6The [facility] Comment on above:Performed By: #### PTT, PT #### [facility] [address] [place] [address] Dr. Wai Morales [id number] Coag (Bld) [Time]25.2 mGizsed23.3-36.2The [facility] SouthComment on above:Performed By: #### PTT, PT #### [facility] [address] [place] [address] Dr. Wai VallejoTESTOSTERONE, TOTALon 61-79-1871Gtzzecziobbz [Mass/Vol]421 ng/dL Ksivni375-025Lwv [facility] SouthComment on above:Result Comment: Adult male reference interval is based on a population of healthy nonobese males (BMI <30) between 19 and 39 years old. Pillo et.al. JCEM 2017,102;4276-4254. PMID: [id number].Performed By: #### TESTTOT #### [facility] [address] [place] [address] Dr. Wai VallejoCBC AUTO DIFFon 32-85-4244MZKR #0.0 103/ulNormal0.0-0.1The [facility] SouthComment on above:Performed By: #### CBC #### [facility] [address] [place] [address] Dr. Wai VallejoBasophils/100 WBC (Bld)0.4 %Normal0.2-2.0The [facility] Comment on above:Performed By: #### CBC #### [facility] [address] [place] [address] Dr. Wai Gonzales #0.2 103/ulNormal0.0-0.7The [facility] SouthComment on above: Performed By: #### CBC #### [facility] [address] [place] [address] Dr. Wai Ingramosinophils/100 WBC (Bld)2.6 %Normal0.9-7.0The [facility] Comment on above:Performed By: #### CBC #### [facility] [address] [place] [address] Dr. Wai Ingramrythrocyte distribution width (RBC) [Ratio]12.2 %Sdsdsa96.0-15.0 The [facility] SouthComment on above:Performed By: #### CBC #### [facility] [address] [address] [address] Wai VallejoHematocrit (Bld) [Volume fraction]43.0 %Xegnej74.0-54.0The [facility] Hospitalment on above:Performed By: #### CBC #### [facility] [address] [place] [address] Dr. Wai VallejoHemoglobin (Bld) [Mass/Vol]14.7 g/wBQnxbkv89.0-18.0The [facility] SouthComment on above:Performed By: #### CBC #### [facility] [address] [place] [address] Dr. Wai Lyon #0.02 10e3/ulNormal0.00-0.03The [facility] SouthComment on above:Performed By: #### CBC #### [facility] [address] [place] [address] Dr. Wai Lyon %0.3 %Normal0.0-0.5The [facility] SouthComment on above: Performed By: #### CBC #### [facility] [address] [place] [address] Dr. Wai Velarde #1.4 103/ulNormal1.2-3.8The [facility]Comselect [facility] on above:Performed By: #### CBC #### [facility] [address] [place] [address] Dr. Wai Vallemphocytes/100 WBC (Bld)19.8 %Critically low20.5-60.0The [facility] SouthComment on above:Performed By: #### CBC #### [facility] [address] [place] [address] Dr. Wai NegroUAL DIFF REQNONormalThe [facility] SouthComment on above: Performed By: #### CBC #### [facility] [address] [place] [address] Dr. Wai Dixon (RBC) [Entitic mass]28.5 klGuvxtc26.9-34.0The [facility] SouthComment on above:Performed By: #### CBC #### [facility] [address] [address] [address] Wai ArreolaHC (RBC) [Mass/Vol]34.2 g/yMXjtqff62.9-35.2The [facility] SouthComment on above:Performed By: #### CBC #### [facility] [address] [address] [address] Wai ArreolaV (RBC) [Entitic vol]83.5 hWNvupzf58.0-94.0The [facility] SouthComment on above:Performed By: #### CBC #### [facility] [address] [place] [address] Dr. Wai Fitzpatrick #0.5 103/ulNormal0.3-0.8The [facility] SouthComment on above:Performed By: #### CBC #### [facility] [address] [place] [address] Dr. Wai Meadowsocytes/100 WBC (Bld)6.9 %Normal1.7-12.0The [facility] Comment on above:Performed By: #### CBC #### [facility] [address] [place] [address] Dr. Wai Gonzales #5.1 103/ulNormal1.4-6.5The [facility] SouthComment on above:Performed By: #### CBC #### [facility] [address] [place] [address] Dr. Wai Glezutrophils/100 WBC (Bld)70.0 %Vxzkuz75.0-75.0The [facility] SouthComment on above:Performed By: #### CBC #### [facility] [address] [place] [address] Dr. Wai Alejandrelet mean volume (Bld) [Entitic vol]9.1 fLCritically low 9.5-13.5The [facility] SouthComment on above:Performed By: #### CBC #### [facility] [address] [place] [address] Dr. Wai VallejoPLT283 103/uiJmpvre378-731WqoGood Samaritan Hospital on above: Performed By: #### CBC #### [facility] [address] [address] [address] Wai VallejoRBC5.15 106/ulNormal4.70-6.10The [facility] on above:Performed By: #### CBC #### [facility] [address] [address] [address] Wai VallejoWBC7.3 103/ulNormal4.0-11.0[facility] on above: Performed By: #### CBC #### [facility] [address] [address] [address] Wai VallejoGLYCOHEMOGLOBIN A1Con [id number] RECOMMENDATIONSEE [facility] HospitalComselect [facility] on above:Result Comment: ADA RECOMMENDED LIMIT 4.0 - 6.0 ADA THERAPEUTIC TARGET < 7.0 ACTION SUGGESTED > 7.0Performed By: #### A1C #### [facility] [address] [place] [address] Dr. Wai VallejoGlucose [Mass/Vol]177 mg/dLNoTrumbull Memorial Hospital on above:Performed By: #### A1C #### [facility] [address] [address] [address] Wai VallejoHbA1c (Bld) [Mass fraction]7.8 %Critically high4.5-6.2[facility] on above:Performed By: #### A1C #### [facility] [address] [address] [address] Wai VallejoLIPID PROFILEon 52-29-6062LUGI-HDL RATIO NORMSEE [facility] on above:Result Comment: 3.3 - 4.4 LOW RISK 4.4 - 7.1 AVERAGE RISK 7.1 - 11.0 MODERATE RISK >11.0 HIGH RISKPerformed By: #### CMP, LIPID #### [facility] [address] [place] [address] Dr. Wai VallejoCholesterol [Mass/Vol]153 mg/dLNormal<=200[facility] Comment on above:Performed By: #### CMP, LIPID #### [facility] [address] [address] [address] Wai VallejoCholesterol in HDL [Mass/Vol]41 mg/uBIkyakl05-38Cqi [facility] SouthComment on above:Performed By: #### CMP, LIPID #### [facility] [address] [address] [address] Wai VallejoCholesterol in LDL [Mass/Vol]75.4 mg/dLNoTrumbull Memorial HospitalComment on above:Performed By: #### CMP, LIPID #### [facility] [address] [place] [address] Dr. Wai Wade.total/Cholesterol in HDL [Mass ratio]3.7 {ratio} NormalThe [facility] SouthComment on above:Performed By: #### CMP, LIPID #### [facility] [address] [place] [address] Dr. Wai Edouard NORMAL> or = 60 mg/dl - LOW CARDIOVASCULAR RISK <40 mg/dl - HIGH CARDIOVASCULAR RISKNoTrumbull Memorial HospitalComment on above:Performed By: #### CMP, LIPID #### [facility] [address] [place] [address] Dr. Wai Vazquez CALC NORMALSEE BELOWTriHealthComment on above:Result Comment: <100 mg/dl OPTIMAL 100 - 129 mg/dl NEAR OR ABOVE OPTIMAL 130 - 159 mg/dl BORDERLINE HIGH 160 - 189 mg/dl HIGH >190 mg/dl VERY HIGH Performed By: #### CMP, LIPID #### [facility] [address] [place] [address] Dr. Wai VallejoTriglyceride [Mass/Vol]183 mg/dLCritically high<=150The [facility] SouthComment on above:Performed By: #### CMP, LIPID #### [facility] [address] [place] [address] Dr. Wai VallejoVLDL CALC36.6 mg/dLNoTrumbull Memorial HospitalComment on above: Performed By: #### CMP, LIPID #### [facility] [address] [address] [address] Wai BarahonaALBUMIN, RAND URon 57-04-9743uUAW<1.3Normal<=30.0The [facility] SouthComment on above:Performed By: #### MALBR #### [facility] [address] [place] [address] Dr. Wai FrancisF 14(COMP METB)on 63-41-8579Ikgehvw [Mass/Vol]3.7 g/dLNormal 3.4-5.0The [facility] SouthComment on above:Performed By: #### CMP, LIPID #### [facility] [address] [place] [address] Dr. Wai VallejoAlbumin/Globulin [Mass ratio]1.0 {ratio}NormalThe [facility] SouthComment on above:Performed By: #### CMP, LIPID #### [facility] [address] [place] [address] Dr. Wai Naranjo [Catalytic activity/Vol]53 U/RLcczul34-490Bws [facility] SouthComment on above:Performed By: #### CMP, LIPID #### [facility] [address] [place] [address] Dr. Wai Argueta [Catalytic activity/Vol]32 U/MTlifsm17-11Zez [facility] SouthComment on above:Performed By: #### CMP, LIPID #### [facility] [address] [place] [address] Dr. Wai Villasenor gap [Moles/Vol]10.0 mmol/LNormalThe [facility] Comment on above:Performed By: #### CMP, LIPID #### [facility] [address] [place] [address] Dr. Wai Martin [Catalytic activity/Vol]17 U/TYbvfaf63-16Clg [facility] SouthComment on above:Performed By: #### CMP, LIPID #### [facility] [address] [place] [address] Dr. Wai VallejoBilirubin [Mass/Vol]1.5 mg/dLCritically high0.2-1.0The [facility] SouthComment on above:Performed By: #### CMP, LIPID #### [facility] [address] [place] [address] Dr. Wai VallejoCalcium [Mass/Vol]9.0 mg/dLNormal8.5-10.1[facility] Comment on above:Performed By: #### CMP, LIPID #### [facility] [address] [place] [address] Dr. Wai VallejoChloride [Moles/Vol]101 mmol/ZLoxwag12-718QzlMetrohealth [facility] Comment on above:Performed By: #### CMP, LIPID #### [facility] [address] [place] [address] Dr. Wai VallejoCO2 [Moles/Vol]30.0 mmol/MOfeddx53.0-32.0[facility] Comment on above:Performed By: #### CMP, LIPID #### [facility] [address] [place] [address] Dr. Wai VallejoCreatinine [Mass/Vol]0.81 mg/dLNormal0.70-1.30The [facility] SouthComment on above:Performed By: #### CMP, LIPID #### [facility] [address] [place] [address] Dr. Wai IngramGFR-AF ARGENTINE>60Normal>=60The [facility] SouthComment on above:Performed By: #### CMP, LIPID #### [facility] [address] [place] [address] Dr. Wai IngramGFR-NON AF ARGENTINE>60Normal>=60The [facility] SouthComment on above:Performed By: #### CMP, LIPID #### [facility] [address] [place] [address] Dr. Wai VallejoGlobulin (S) [Mass/Vol]3.6 g/dLNormalThe [facility] SouthComment on above:Performed By: #### CMP, LIPID #### [facility] [address] [place] [address] Dr. Wai VallejoGlucose [Mass/Vol]192 mg/dLCritically nyif53-971Eio [facility] SouthComment on above:Performed By: #### CMP, LIPID #### [facility] [address] [address] [address] Wai VallejoPotassium [Moles/Vol]4.0 mmol/LNormal3.5-5.1The [facility] Comment on above:Performed By: #### CMP, LIPID #### [facility] [address] [address] [address] Wai VallejoProtein [Mass/Vol]7.3 g/dLNormal6.4-8.2The [facility] Comment on above:Performed By: #### CMP, LIPID #### [facility] [address] [place] [address] Dr. Wai VallejoSodium [Moles/Vol]137 mmol/IJvnnhv683-129XfgMet[facility]health [facility] Comment on above:Performed By: #### CMP, LIPID #### [facility] [address] [address] [address] Wai VallejoUrea nitrogen [Mass/Vol]13.0 mg/dLNormal7.0-18.0The [facility] SouthComment on above:Performed By: #### CMP, LIPID #### [facility] [address] [place] [address] Dr. Wai Chiu nitrogen/Creatinine [Mass ratio]16.0 mg/mgNormalThe [facility] SouthComment on above:Performed By: #### CMP, LIPID #### [facility] [address] [place] [address] Dr. Wai Vallejo Vital Signs Date TimeVital SignValuePerforming BmgknjhgwYukcroad45-02-0112 10:Body knogno678.8 cmBenjamin Ball DO Work Phone: [facility]10-01-2025 10:18-040 Body mass index (BMI) [Ratio]24.7 kg/c8Zkwfjsgp Ball DO Work Phone: [facility]10-01-2025 10:18 Body icpzdb21.13 kgBenjamin Ball DO Work Phone: [phone]10-01-2025 10:18-0400 Diastolic blood jsdpoong32 mm[Hg]Max Ball DO Work Phone: [phone] [place], [place] 1506810-01-2025 10:18-0400 Heart rate80 /minBenjamin Ball DO Work Phone: [phone] [place], [place] 1506810-01-2025 10:18-0400 Respiratory rate12 /minBenjamin Ball DO Work Phone: [phone] [place], [place] 1506810-01-2025 10:18-0400 Systolic blood rxqborlc496 mm[Hg]Max Ball DO Work Phone: [phone]08-11-2025 10:21-0400 Body kqbevf597.3 cmZen Brown DO Work Phone: [phone] [place], [place] 1753608-11-2025 10:21-0400Body mass index (BMI) [Ratio]27.47 kg/t0Lwozt Brown DO Work Phone: [phone] [place], [place] 1753608-11-2025 10:21-0400Body qhwykh40.37 kgJason Brown DO Work Phone: [phone] [place], [place] 1753607-09-2025 10:15-0400Body sccpro507.8 cmBenjamin Ball DO Work Phone: [phone] [place], [place] 4810407-09-2025 10:15-0400 Body mass index (BMI) [Ratio]23.8 kg/o5Ubhdjohv Ball DO Work Phone: [phone] [place], [place] 1506807-09-2025 10:15-0400 Body .52 kgBenjamin Ball DO Work Phone: [phone] [place], [place] 4810407-09-2025 10:15-0400 Diastolic blood vqosostt33 mm[Hg]Max Ball DO Work Phone: [phone] [place], [place] 1506807-09-2025 10:15-0400 Heart rate74 /minBenjamin Ball DO Work Phone: [facility]07-09-2025 10:15-0400 Respiratory rate12 /minBenjamin Ball DO Work Phone: [facility]07-09-2025 10:15-0400 Systolic blood zhlwqlix660 mm[Hg]Max Ball DO Work Phone: [facility]07-03-2025 15:38-0400 Body pojnqp152.3 cmZen Brown DO Work Phone: [phone] [place], [place] 1753607-03-2025 15:38-0400Body mass index (BMI) [Ratio]27.47 kg/o2Ydysp Brown DO Work Phone: [phone] [place], [place] 1753607-03-2025 15:38-0400Body hxdcoj79.37 kgZen Brown DO Work Phone: [phone] [place], [place] 1753606-20-2025 10:13-0400Body .3 cmTPoc[facility]ontas [facility] Work Phone: [phone] [place], [place] 1753606-20-2025 10:13-0400Body mass index (BMI) [Ratio]27.47 kg/m2[facility] Work Phone: [phone] [place], [place] 1753606-20-2025 10:13-0400Body emakxr95.37 kgK[facility] Hospital Work Phone: [phone] [place], [place] 1753606-12-2025 09:55-0400Body jvpxpy135.3 cmZen Rdz DO Work Phone: [phone] [place], [place] 1753606-12-2025 09:55-0400Body mass index (BMI) [Ratio]27.47 kg/o3Babeu Brown DO Work Phone: [phone] [place], [place] 1753606-12-2025 09:55-0400Body imhlhn11.37 kgZen Brown DO Work Phone: [phone] [place], [place] 1753605-20-2025 11:10-0400Body .8 cmBenjamin Ball DO Work Phone: [facility]05-20-2025 11:10-0400 Body mass index (BMI) [Ratio]23.8 kg/n2Eojqbblx Ball DO Work Phone: [facility]05-20-2025 11:10-0400 Body veldpd91.35 kgBenjamin Ball DO Work Phone: [facility]05-20-2025 11:10-0400 Diastolic blood mm[Hg]Max Ball DO Work Phone: [facility]05-20-2025 11:10-0400 Heart rate80 /minBenjamin Ball DO Work Phone: [facility]05-20-2025 11:10-0400 Respiratory rate12 /minBenjamin Ball DO Work Phone: [facility]05-20-2025 11:10-0400 Systolic blood leoromwm943 mm[Hg]Max Ball DO Work Phone: [facility]04-24-2025 10:30-0400 Body bwjrne583.8 cmTrumbull Regional Medical Center04-24-2025 10:30-0400Body mass index (BMI) [Ratio]24.4 kg/a9QdghhvbekTrumbull Regional Medical Center04-24-2025 10:30-0400Body ikkara34.33 kgTrumbull Regional Medical Center04-24-2025 10:30-0400Diastolic blood jimvvfee06 mm[Hg][facility] 07-18-2024 10:30-0400Heart rate83 /[facility] 07-18-2024 10:30-0400Respiratory rate12 /[facility] 07-18-2024 10:30-0400Systolic blood yshkvekz818 mm[Hg][facility]04-10-2025 10:13-0400Body aapkmi874.3 cmZen Brown DO Work Phone: [facility]unB[facility] HospitalQifwgfkxqv57-14-6332 10:13-0400Body mass index (BMI) [Ratio]27.47 kg/r8Pikcy Brown DO Work Phone: noBates [facility] Memorial HospitalAzylhxjpst24-86-2755 10:13-0400Body .37 kgZen Rdz DO Work Phone: [phone] [place], [place] 1753603-13-2025 09:59-0400Body fqkaqm948.3 cmZen Rdz DO Work Phone: [phone] [place], [place] 1753603-13-2025 09:59-0400Body mass index (BMI) [Ratio]27.62 kg/d5IrhdoZen Rdz DO Work Phone: [phone] [place], [place] 1753603-13-2025 09:59-0400Body mdqsew07.82 kgZen Rdz DO Work Phone: [phone] [place], [place] 1753602-27-2025 11:15-0500Hourly Rounding Zen Rdz [address] [place], [place] [address]Comment on above:Result Comment: reviewed discharge ppwork, no -[phone] 11:15-0500Promise to ReturnZen Rdz [address] [place], [place] 7495102-27-2025 10:00-0500Heart rate80 /minZen Rdz [address] [place], [place] 9967602-27-2025 10:00-0500 Hourly RoundingZen Rdz [address] [place], [place] [address]Comment on above:Result Comment: pt tolersted ambulating very well to bathroom, at bedside 05-23-2024 10:00-0500Promise to ReturnZen Rdz [address] [place], [place] 7495102-27-2025 10:00-0500 Respiratory rate17 /Isabela Rdz [address] [place], [place] 7495102-27-2025 09:31-8831MyE3% (BldA) [Mass fraction]97 %Zen Rdz [address] [place], [place] 9967602-27-2025 09:21-0500 Hourly RoundingZen Rdz [address] [place], [place] [address]Comment on above:Result Comment: noted to have slight swelling to upper left -[phone] 09:18-0500 Promise to ReturnZen Rdz [address] [place], [place] [id number] 09:00-0500Blood Pressure LocationZen Rdz [address] [place], [place] 9967602-27-2025 09:00-0500 Diastolic blood kqiiyqak33 mm[Hg]Zen Rdz [address] [place], [place] 9967602-27-2025 09:00-0500Mean blood hmzudcok25 mm[Hg]Zen Rdz [address] [place], [place] 9967602-27-2025 09:00-0500 Systolic blood isyozmjn371 mm[Hg]Zen Rdz [address] [place], [place] 9967602-27-2025 08:00-0500 Diastolic blood gkisxaqs15 mm[Hg]Zen Rdz [address] [place], [place] 9967602-27-2025 08:00-0500Mean blood esztfnjc46 mm[Hg]Zen Rdz [address] [place], [place] 9967602-27-2025 08:00-0500 Systolic blood eeghkgld498 mm[Hg]Zen Rdz [address] [place], [place] 9967[address]-27-2025 07:40-0500gluc 161 mg/dLZen Rdz [address] [place], [place] 9967602-27-2025 07:00-0500Body deajwmkfsmg32.88 [degF]Zen Rdz [address] [place], [place] 9967602-27-2025 07:00-0500 Diastolic blood mm[Hg]Zen Rdz [address] [place], [place] 9967[address]-27-2025 07:00-0500Mean blood txbwqscy59 mm[Hg]Zen Rdz [address] [place], [place] 9967[address]-27-2025 07:00-0500 Systolic blood pbejjgal959 mm[Hg]Zen Rdz [address] [place], [place] 9967602-27-2025 06:27-0500Heart rate74 /Isabela Rdz [address] [place], [place] 9967602-27-2025 06:27-0500 Respiratory rate16 /Isabela Rdz [address] [place], [place] 9967[address]-27-2025 05:43-0500Heart rate73 /Isabela Rdz [address] [place], [place] 9967[address]-27-2025 05:43-0500 Respiratory rate12 /Isabela Rdz [address] [place], [place] 7495102-27-2025 04:11-0500Body gqqbyzartnf22.06 [degF]Zen Rdz [address] [place], [place] 9967[address]-27-2025 04:11-0500Heart rate77 /Isabela Rdz [address] [place], [place] 9967602-26-2025 20:00-0500Body mtwzfexljpv95.42 [degF]Zen Rdz [address] [place], [place] 9967602-26-2025 16:55-0500Body epaehqhbomr19.06 [degF]Zen Rdz [address] [place], [place] 9967602-26-2025 15:55-0500Body wgonzdoevpj41.24 [degF]Zen Rdz [address] [place], [place] 9967602-26-2025 15:10-0500Body lpmtpuyfoew12.24 [degF]Zen Rdz [address] [place], [place] 7495102-26-2025 12:53-0500gluc 183 mg/dLReynaldodebra Liang [address] [place], [place] 9967602-26-2025 08:00-0500Mean blood haxnrdnp80 mm[Hg]Zen Liang [address] [place], [place] 9967602-26-2025 07:59-0500Body lqmfybwgrhb62.52 [degF]Zen Rdz [address] [place], [place] 7495102-26-2025 07:59-0500Mean blood rfakpzfe01 mm[Hg]Zen Rdz [address] [place], [place] 7495102-20-2025 09:46-0500Body .3 cmZen Rdz [employer] Work Phone: [phone] [place], [place] 1753602-20-2025 09:46-0500Body mass index (BMI) [Ratio]27.62 kg/m4YccvlZen Rdz [employer] Work Phone: 1([phone] [place], [place] 1753602-20-2025 09:46-0500Body urptbf30.82 kgZen Rdz [employer] Work Phone: 1(364)[address] [place], [place] 1753602-04-2025 13:28-0500Diastolic blood uikzorse12 mm[Hg]Zen Rdz [address] [place], [place] 7495102-04-2025 13:28-0500Heart rate69 /Isabela Rdz [address] [place], [place] 9967602-04-2025 13:28-0500Mean blood xuzjvkth90 mm[Hg]Zen Rdz [address] [place], [place] 9967602-04-2025 13:28-0500 Systolic blood bpxgvtga082 mm[Hg]Zen Rdz [address] [place], [place] 9967602-04-2025 13:27-0500Heart rate74 /Isabela Rdz [address] [place], [place] 9967[address]-04-2025 13:27-0500 Respiratory rate18 /Isabela Rdz [address] [place], [place] 9967602-04-2025 13:27-4806SnY2% (BldA) [Mass fraction]97 %Zen Rdz [address] [place], [place] 9967602-04-2025 13:27-0500 Diastolic blood mm[Hg]Zen Rdz [facility]02-04-2025 13:27-0500Mean blood typfsonj27 mm[Hg]Zen Rdz [facility]02-04-2025 13:27-0500 Systolic blood lwuyxtwv016 mm[Hg]Zen Rdz [facility]12-23-2024 10:32-0500Body .3 cmAllannie Petznsolomon DO Work Phone: [facility]wnQulfytrrfu02-60-2559 10:32-0500Body mass index (BMI) [Ratio]27.62 kg/j7Smvpsgw Petznick DO Work Phone: [facility] LawnCwuxqxdetw10-07-7802 10:32-0500Body temperature 98.49 [degF]Rose Petznick DO Work Phone: [facility] LawnJqmszggobk69-86-6506 10:32-0500Body .82 kgAllison Petznick DO Work Phone: [facility] LawnGkhzyxxozk90-21-2632 10:32-0500Diastolic blood mm[Hg]Rose Petznick DO Work Phone: [facility] LawnLisscugtlj00-85-2321 10:32-0500Heart rate65 /min Rose Petznick DO Work Phone: noB[facility] HospitalTqzutiehde61-06-7985 10:32-9439KmQ2% (BldA) [Mass fraction]98 %Rose Petznick DO Work Phone: [facility] LawnCcdcwxamly11-18-8117 10:32-0500Systolic blood ujfnrjhv645 mm[Hg]Rose Petznick DO Work Phone: noB[facility] HospitalRsoakrnwva75-46-2991 07:55-0400Body gdcven278.3 cmZen Rdz DO Work Phone: noB[facility] HospitalOzmwcshhtg01-41-1801 07:55-0400Body mass index (BMI) [Ratio]27.62 kg/y3Xzrqu Liang DO Work Phone: [facility] LawnOdqbuhojhs29-13-6562 07:55-0400Body temperature 97.5 [degF]Zen Rdz DO Work Phone: NOB[facility] HospitalShsnlmkhdz47-79-4109 07:55-0400Body xeuxau12.82 kgZen Rdz DO Work Phone: NOB[facility] HospitalXflzzqtqgk44-13-5372 09:58-0400Body aluglr405.3 cmAlala Dick DO Work Phone: NOB[facility] HospitalIzutydyswh34-78-6114 09:58-0400Body mass index (BMI) [Ratio]27.62 kg/x4Vhsivdx Petznick DO Work Phone: NOB[facility] HospitalFvxxbszofj30-40-9124 09:58-0400Body temperature 99.1 [degF]Rose Petznick DO Work Phone: noB[facility] HospitalWtqfzocmes02-92-5730 09:58-0400Body chuizo49.82 kgAllannie Petznsolomon DO Work Phone: noB[facility] HospitalYridmucbdz89-38-7450 09:58-0400Diastolic blood xkqdbbef92 mm[Hg]Rose Petznick DO Work Phone: noB[facility] HospitalWjexzpwcle32-91-5449 09:58-0400Heart rate87 /min Rose Petznick DO Work Phone: noB[facility] HospitalOoeiwmbtjy75-42-3872 09:58-6139VaP6% (BldA) [Mass fraction]95 %Rose Petznick DO Work Phone: noB[facility] HospitalBpercwsrce59-12-8340 09:58-0400Systolic blood neyboarz260 mm[Hg]Rose Petznick DO Work Phone: noB[facility] HospitalYgkpvuzerm61-26-2371 13:41-0400Body nadnlh408.8 cmDO Max Truffls Work Phone: [facility]06-19-2024 13:41-0400 Body mass index (BMI) [Ratio]27.3 kg/m2DO Max Truffls Work Phone: [facility]06-19-2024 13:41-0400 Body fjyorj09.23 kgDO Max Ball Work Phone: [facility]06-19-2024 13:41-0400 Diastolic blood xdkuvnrt28 mm[Hg]DO Max Tucker Work Phone: [facility]06-19-2024 13:41-0400 Heart abuz321 /Randy Tucker Work Phone: [facility]06-19-2024 13:41-0400 Respiratory rate12 /Randy Tucker Work Phone: [facility]06-19-2024 13:41-0400 Systolic blood uaeogyiu035 mm[Hg]DO Max Tucker Work Phone: [facility]04-12-2024 11:07-0400 Body gyqazv354.8 cmTr[facility]04-12-2024 11:07-0400Body mass index (BMI) [Ratio]27.1 kg/g5RkejkmmnnTrumbull Regional Medical Center04-12-2024 11:07-0400Body haeucs71.95 kgTrumbull [facility] Medical Center04-12-2024 11:07-0400Diastolic blood igfppoav68 mm[Hg][facility] 07-07-2023 11:07-0400Heart rate96 /[facility] 07-07-2023 11:07-0400Respiratory rate12 /[facility] 07-07-2023 11:07-0400Systolic blood scegzkpn967 mm[Hg][facility]01-12-2024 12:06-0500Heart rate71 /julissaReynaldodebra Rdz [facility]01-12-2024 12:06-4523KzS4% (BldA) [Mass fraction]98 %Zen Rdz [facility]01-12-2024 12:06-0500 Diastolic blood cbjuzhyz16 mm[Hg]Zen Rdz [facility]01-12-2024 12:06-0500Mean blood qwuzkutn91 mm[Hg]Zen Rdz [address]01-12-2024 12:06-0500 Systolic blood wbcaubeb785 mm[Hg]Zen Rdz [address] [place], [place] 7495101-12-2024 12:06-0500 Respiratory rate16 /minZen Rdz [address] [place], [place] 7495101-12-2024 11:16-0500Heart rate70 /minZen Rdz [address] [place], [place] 7495101-12-2024 11:16-6378OwW6% (BldA) [Mass fraction]95 %Zen Rdz [address] [place], [place] 7495[address]-12-2024 11:14-0500 Respiratory rate16 /Isabela Rdz [address] [place], [place] 7495101-12-2024 11:14-0500Body .34 [degF]Zen Rdz [address] [place], [place] 7495101-12-2024 11:13-0500 Diastolic blood msvbtewi86 mm[Hg]Zen Rdz [address] [place], [place] 7495101-12-2024 11:13-0500Mean blood mm[Hg]Zen Rdz [address] [place], [place] 7495101-12-2024 11:13-0500 Systolic blood mm[Hg]Zen Rdz [address] [place], [place] 7495[address]-12-2024 11:00-0500 Diastolic blood tceniaho13 mm[Hg]Zen Rdz [address] [place], [place] 7495[address]-12-2024 11:00-0500Mean blood galohqie25 mm[Hg]Zen Rdz [address] [place], [place] 7495[address]-12-2024 11:00-0500 Respiratory rate14 /Isabela Rdz [address] [place], [place] 7495[address]-12-2024 11:00-2094LuU9% (BldA) [Mass fraction]92 %Zen Rdz [address] [place], [place] 7495[address]-12-2024 11:00-0500 Systolic blood exshvgty015 mm[Hg]Zen Rdz [address] [place], [place] 7495101-12-2024 10:50-0500Mean blood kenrexcg60 mm[Hg]Zen Rdz [address] [place], [place] 7495[address]-12-2024 10:50-0500 Respiratory rate12 /Isabela Rdz [address] [place], [place] 7495[address]-12-2024 10:45-0500Mean blood suiilgav15 mm[Hg]Zen Rdz [address] [place], [place] 7495[address]-12-2024 10:45-0500 Respiratory rate12 /Isabela Rdz [address] [place], [place] 7495[address]-12-2024 10:35-0500Body ybiarmprnfv95.16 [degF]Zen Rdz [address] [place], [place] 7495[address]-12-2024 07:37-0500Mean blood wybqlcqh59 mm[Hg]Zen Rdz [address] [place], [place] 7495[address]-12-2024 07:37-0500Blood Pressure LocationZen Rdz [address] [place], [place] 7495101-12-2024 07:36-0500 Respiratory rate16 /Isabela Rdz [address] [place], [place] 7495[address]-12-2024 07:36-0500Body yblqnmnovvl24.52 [degF]Zen Rdz [address] [place], [place] 7495[address]-12-2024 07:36-0500Heart rate66 /Isabela Rdz [address] [place], [place] 7495[address]-12-2024 07:35-0500Blood Pressure LocationZen Rdz [address] [place], [place] 7495112-28-2023 08:29-0500 Diastolic blood mm[Hg]Zen Rdz [address] [place], [place] 9967612-28-2023 08:29-0500Heart rate64 /Isabela Rdz [address] [place], [place] 9967612-28-2023 08:29-0500Mean blood mm[Hg]Zen Rdz [address] [place], [place] 9967612-28-2023 08:29-0500 Systolic blood nvrnnarc165 mm[Hg]Zen Rdz [address] [place], [place] 9967612-28-2023 08:29-0500Heart rate74 /Isabela Rdz [address] [place], [place] 9967612-28-2023 08:29-5151EyI2% (BldA) [Mass fraction]99 %Zen Rdz [address] [place], [place] 9967612-28-2023 08:28-0500 Respiratory rate18 /Isabela Rdz [address] [place], [place] 9967612-28-2023 08:28-0500Body cyrrgwsfvmv99.88 [degF]Zen Rdz [address] [place], [place] 9967612-28-2023 08:28-0500 Diastolic blood tsgmiwpb64 mm[Hg]Zen Rdz [address] [place], [place] 9967612-28-2023 08:28-0500Mean blood tkburitu231 mm[Hg]Zen Rdz [address] [place], [place] 9967612-28-2023 08:28-0500 Systolic blood npupenzd121 mm[Hg]Zen Rdz [address] [place], [place] 9967612-08-2023 08:45-0500Body .8 cmBenjamin Ball Other [employer] Other [id number] 08:45-0500Body mass index (BMI) [Ratio] 26.43 kg/h3Pnpfnbqq Ball Other [employer] Other 12-08-2023 08:45-0500Body .55 kgBenjamin Ball Other [employer] Other 12-08-2023 08:45-0500Diastolic blood gtwyefsv48 mm[Hg] Max Ball Other [employer] Other 12-08-2023 08:45-0500Respiratory rate12 /minBenjamin Ball Other [employer] Other 12-08-2023 08:45-0500Systolic blood hjtmibrv702 mm[Hg] Max Ball Other [employer] Other 08-04-2023 14:15-0400Body ihkyre898.8 cmBenjamin Ball Other [employer] Other 08-04-2023 14:15-0400Body mass index (BMI) [Ratio] 26.31 kg/f7Cpaesyeo Ball Other [employer] Other 08-04-2023 14:15-0400Body maepou68.19 kgBenjamin Ball Other [employer] Other 08-04-2023 14:15-0400Diastolic blood kuiouhow77 mm[Hg] Max Ball Other [employer] Other 08-04-2023 14:15-0400Respiratory rate12 /minBenjamin Ball Other [employer] Other 08-04-2023 14:15-0400Systolic blood bhachkks544 mm[Hg] Max Ball Other [employer] Other 04-26-2023 16:00-0400Body buovul395.8 cmBenjamin Ball Other [employer] Other 04-26-2023 16:00-0400Body mass index (BMI) [Ratio]27 kg/m0Dzkbcrww Ball Other [employer] Other 04-26-2023 16:00-0400Body .37 kgBenjamin Ball Other [employer] Other 04-26-2023 16:00-0400Diastolic blood xkagayyv97 mm[Hg] Max Ball Other [employer] Other 04-26-2023 16:00-0400Respiratory rate12 /minBenjamin Ball Other [employer] Other 04-26-2023 16:00-0400Systolic blood bropdfuk330 mm[Hg] Max Ball Other [employer] Other 04-04-2023 14:15-0400Body .8 cmBenjamin Ball Other [employer] Other 04-04-2023 14:15-0400Body mass index (BMI) [Ratio]26.4 kg/g7Mhtnmkpe Ball Other [employer] Other 04-04-2023 14:15-0400Body uybmlm72.46 kgBenjamin Ball Other [employer] Other 04-04-2023 14:15-0400Diastolic blood mm[Hg] Max Ball Other [employer] Other 04-04-2023 14:15-0400Respiratory rate12 /minBenjamin Ball Other [employer] Other 04-04-2023 14:15-0400Systolic blood mm[Hg] Max Ball Other [employer] Other 03-28-2023 11:15-0400Body .8 cmBenjamin Ball Other [employer] Other 03-28-2023 11:15-0400Body mass index (BMI) [Ratio] 26.69 kg/k6Fwnuqtnj Ball Other [employer] Other 03-28-2023 11:15-0400Body rficub83.37 kgBenjamin Ball Other [employer] Other 03-28-2023 11:15-0400Diastolic blood mm[Hg] Max Ball Other [employer] Other 03-28-2023 11:15-0400Respiratory rate12 /minBenjamin Ball Other [employer] Other 03-28-2023 11:15-0400Systolic blood mm[Hg] Max Ball Other [employer] Other Encounters Encounter DateEncounter TypeCare ProviderFacilityStart: 01-27-2025 End: 95-44-3901hgzhafipdbTATIPDAF E BALLFacility:[facility]tart: 01-13-2025 End: 30-07-6828Ijsufko encounter procedureZen Rdz DO Work Phone: [facility] [place] OrthopaedicsComment on above:Left wrist pain (Primary Dx)Start: 01-13-2025 End: 58-63-5820pztlujtfvzPHEWY A BROWNNot AvailableStart: 01-13-2025 End: 39-76-9102etrbvgckcwGKJZV A BROWNNot AvailableStart: 12-25-2024 End: 32-46-5132vryzdbwvacLyyvvicj Ball DO Work Phone: [facility] Work Phone: Start: 12-25-2024 End: 38-07-5518Pupaxus encounter procedureBenjamin Ball DO-[facility] Work Phone: Start: 11-18-2024 End: 36-21-3898Qaucdb outpatient visit 25 minutesBrielle Kraus MD Work Phone: OrthopaedicsComment on above: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); S/P shoulder replacement, leftStart: 11-18-2024 End: 17-61-7507rtziikkvheNCYLQVAA E BALLFacility:[facility] Hospitaltart: 11-04-2024 End: 10-99-4574Xnyhsb flowsheetZen Rdz DO Work Phone: NOX[facility] [place] OrthopaedicsStart: 11-04-2024 End: 04-51-5943Akxqcp flowsheetZen A Liang DO Work Phone: [facility] [place] OrthopaedicsStart: 11-04-2024 End: 39-19-7556Ymhtkyt encounter procedureJadebra Rdz DO Work Phone: [facility] [place] OrthopaedicsComment on above:Status post total shoulder replacement, left (Primary Dx)Start: 11-04-2024 End: 09-66-0539aozzfixpbkZXYNN A BROWNNot AvailableStart: 40-77-0576Cxf-patient / Non-visitBenjamin Ball DO-[facility] Work Phone: Start: 10-28-2024 End: 94-59-5663yrxgrhlmxbWPEUVSIX E GARRETTFacility:[facility] Hospitaltart: 10-28-2024 End: 27-20-7995Tycogk outpatient new 45 minutesBrielle Kraus MD Work Phone: OrthopaedicsComment on above:Left shoulder pain, unspecified chronicity (Primary Dx); S/P shoulder replacement, left; Loose orthopedic implant, initial encounter; Instability of left shoulder jointStart: 10-28-2024 End: 21-51-3490umrcgnenxjXRNMA A BROWNFacility:[facility] Hospitaltart: 10-02-2024 End: 17-08-0794rzeddslskgRehswibw Garrett MIJARES Work Phone: [facility] Work Phone: Start: 10-02-2024 End: 86-18-0637Tszqjre encounter procedureMax Garrett MIJARES-[facility] Work Phone: Start: 09-26-2024 End: 39-22-9966Suxflof encounter procedureZen Rdz Work Phone: [facility] NB ORTHOComment on above:Status post total shoulder replacement, left (Primary Dx)Start: 09-26-2024 End: 66-24-5113auyuluczlvQQDBV A BROWNNot AvailableStart: 09-26-2024 End: 14-93-4336Ueiquv flowsheetZen Rdz DO Work Phone: NOM[facility] ORTHOStart: 09-26-2024 End: 29-87-2417Aixnia flowsheetZen Rdz DO Work Phone: [phone] ORTHOStart: 09-24-2024 End: 48-49-9621Egdnnfmzl Result EncounterZen Rdz Work Phone: [facility] External Department UnsolicitedStart: 09-24-2024 End: 43-90-7250Yrlniqhlo Result EncounterZen Rdz DO Work Phone: [facility] External Department UnsolicitedStart: 09-24-2024 End: 35-27-0238yvpwulpyhfRBZulma RdzFacility:FTMCStart: 09-24-2024 End: 03-00-0963Nvjtarg encounter procedureZen Rdz [facility] Start: 09-13-2024 End: 92-61-2649Rhlkucs encounter procedureRosi GIRARD Work Phone: [phone] NB ORTHOComment on above:Left shoulder pain, unspecified chronicity (Primary Dx); Status post total shoulder replacement, left; Acute postoperative pain of left shoulderStart: 09-13-2024 End: 14-70-7051kfwxfskvaqJAIL D HILLSNot AvailableStart: 09-05-2024 End: 69-65-4252Gslvrk Harpal Rdz Work Phone: [phone] ORTHOStart: 09-05-2024 End: 71-13-2320Twwnyi Harpal Sanchez Liang MIJARES Work Phone: [phone] ORTHOStart: 09-05-2024 End: 16-12-2174Icbllxw encounter procedureZen Rdz Work Phone: [phone] NB ORTHOComment on above:Status post total shoulder replacement, left (Primary Dx)Start: 09-05-2024 End: 28-47-2055auvaczyxadSYPTU A BROWNNot AvailableStart: 08-13-2024 End: 01-86-8734Utqfsdk encounter procedureBengurpreet Tucker DO-[facility] Work Phone: Start: 07-18-2024 End: 72-14-8038hiwgkjsaflIsmemblitChildren's Hospital for Rehabilitation Work Phone: Start: 07-18-2024 End: 16-71-4631Dwwwavg encounter procedureCritical Access Hospital Phys[facility] Work Phone: Start: 35-82-5119Wtz-patient / Non-visitCritical Access Hospital Physician Group-[facility] Work Phone: Start: 07-04-2024 End: 17-59-8377Auhxoam encounter procedureZen Rdz DO Work Phone: [facility] NB ORTHOComment on above:Status post total shoulder replacement, left (Primary Dx)Start: 07-04-2024 End: 60-50-9412xsqhuajjbgCFTQX Daniel BROWNNot AvailableStart: 07-04-2024 End: 31-12-3221urwzxcklaiPESBX Daniel BROWNNot AvailableStart: 06-14-2024 End: 08-98-0478nipblrzatdUTCCUWU M PETZNSOLOMONNot AvailableStart: 06-06-2024 End: 44-61-3914Visigfr encounter procedureZen Sanchez Liang DO Work Phone: [facility] NB ORTHOComment on above:Status post total shoulder replacement, left (Primary Dx)Start: 06-06-2024 End: 18-02-1867xzptjhnnuhHLQQX Daniel BROWNNot AvailableStart: 06-06-2024 End: 68-61-4221wlnadkipuzACVEY Daniel BROWNNot AvailableStart: 05-23-2024 End: 64-27-7328Riqgkjcty Result EncounterZen Rdz DO Work Phone: [facility] External Department UnsolicitedStart: 05-23-2024 End: 14-09-8938Wkmkvylsr Result EncounterJason Daniel Rdz DO Work Phone: [facility] External Department UnsolicitedStart: 05-22-2024 End: 85-80-1168Kexvgcvfi Result EncounterJason Daniel Rdz DO Work Phone: [facility] External Department UnsolicitedStart: 05-22-2024 End: 44-00-4069Jddupyhgp Result EncounterReynaldoson Daniel Rdz DO Work Phone: [facility] External Department UnsolicitedStart: 05-22-2024 End: 07-08-9814xgzmqzsunyJJ Zen RdzFacility:FTMCStart: 05-22-2024 End: 38-36-9557Woiibqt encounter procedureZen Daniel Liang [facility] Start: 05-16-2024 End: 25-23-0296Gzwgla flowsTy Rdz DO Work Phone: [facility] ORTHOStart: 05-16-2024 End: 73-18-7364Irqtij flowsTy Rdz DO Work Phone: [facility]OM[facility] ORTHOStart: 05-16-2024 End: 10-09-7288Xjplqxs encounter procedureZen Rdz DO Work Phone: [facility] NB ORTHOComment on above:Arthritis of left shoulder region (Primary Dx)Start: 05-16-2024 End: 74-98-8109ikbrinzposAAKZZ A BROWNNot AvailableStart: 04-30-2024 End: 25-74-8350Ummuboatt Result EncounterZen Rdz DO Work Phone: [facility] External Department UnsolicitedStart: 04-30-2024 End: 80-00-5350Awiejgnjq Result EncounterZen Rdz DO Work Phone: [facility] External Department UnsolicitedStart: 04-30-2024 End: 92-66-6042pvlotkoizsIqykm A Estebancility:FTMCStart: 04-30-2024 End: 23-05-5202Cqyhyyn encounter procedureZen Rdz [facility] Start: 03-18-2024 End: 78-86-6783Rjfjow outpatient visit 25 minutesAllannie Dick DO Work Phone: [facility] SWS FM 230Comment on above:Type 2 diabetes mellitus without complication, without long-term current use of insulin ([facility])Start: 03-18-2024 End: 72-78-5429izlazfmmbdGYZZORU M PETZNICKNot AvailableStart: 74-99-7621Vxsylka encounter statusAultman Hospitaltart: 12-19-2023 End: 29-61-0693Asnccoi encounter procedureZen Rdz DO Work Phone: N[facility] NB ORTHOComment on above:Arthritis of left shoulder region (Primary Dx)Start: 12-18-2023 End: 46-13-1815Nuqcoz outpatient visit 25 minutesGerardoannie Dick DO Work Phone: [facility] S[facility] FM 230Comment on above:Type 2 diabetes mellitus without complication, without long-term current use of insulin ([facility]) (Primary Dx); Type 2 diabetes mellitus with hyperglycemia, without long-term current use of insulin ([facility])Start: 09-13-2023 End: 38-79-1792mmqvfgfpshVX Max Tucker Work Phone: [facility] Work Phone: Start: 09-13-2023 End: 88-30-0300Foqavco encounter procedure Max Tucker Work Phone: [facility] Work Phone: Start: 08-16-2023 End: 50-86-5735Hpfihfo encounter procedureDO Max Tucker Work Phone: [facility] [address] Work Phone: Start: 08-16-2023 End: 48-17-6012wqaunjlqxfTV Benjamin Ball Work Phone: [facility] Work Phone: Start: 07-20-2023 End: 96-84-7955zmdlkxvtckZgtvfyvj Garrett Other [facility] [employer] Other Start: 11-46-1296Nazmozqyn encounterBechristi TuckerDayton Children's Hospitaltart: 07-07-2023 End: 17-85-2395wziqzwlqndKzbvdnzmjMer[facility] Work Phone: Start: 07-07-2023 End: 66-88-8404Jyzvupd encounter procedureRachel Physician Group-[facility] Work Phone: Start: 97-42-4916Mmf-patient / Non-visitRachel Physician Group-[facility] [employer] Work Phone: Start: 04-25-2023 End: 31-54-7822hhkvwlylaqMeugvgxa Ball Other [employer] Other Start: 66-29-9909Ryswmceva encounterBenjamin BallFPG [facility] ClinicStart: 58-01-5080Amevzpc encounter procedureRachel Physician Group-Start: 04-07-2023 End: 95-31-4970Ctyzamgjp to same day surgery oliverZen Sanchez [employer] [facility] Start: 03-23-2023 End: 00-12-4566Xjsmuuc encounter procedureZen Sanchez [employer] [facility] Start: 03-06-2023 End: 37-08-2915soemoyynjcPwgahuhd Ball Other [employer] Other Start: 44-21-9647Llwxpxvkz encounterBenjamin BallFPG [facility] ClinicStart: 03-03-2023 End: 22-62-7198ioijkgmeboZrqysvcr Ball Other [employer] Other Start: 34-78-6417Ysydvqukk for general adult medical examination without abnormal findingsBenjamin BallFPG [facility] ClinicStart: 30-91-8186Bsfuftja preventive med est patient 40-64yrsBenjamin BallFPG [facility] ClinicStart: 02-20-2023 End: 54-79-6304lpmpvghvblWwbqaxas Ball Other [employer] Other Start: 62-48-2855Pkryiisqk encounterBenjamin BallFPG [facility] ClinicStart: 11-25-2022 End: 15-81-2473vvztazengcMunbphzn Ball Other [employer] Other Start: 41-41-8153Ymowtke evaluation of patient and reportBenjamin BallFPG [facility] ClinicStart: 11-01-2022 End: 55-93-8672ppcdsfqqjzEjpvxzqs Ball Other [employer] Other Start: 26-21-5190Feuoowelp encounterBenjamin BallFPG [facility] ClinicStart: 10-28-2022 End: 18-76-0324cwujoixjmcMkupbvqt Ball Other [employer] Other Start: 65-68-0973Btzctm outpatient visit 25 minutes Max BallFPG [facility] ClinicStart: 07-20-2022 End: 94-43-8172ykihczsbpyEzhbymbo Ball Other [employer] Other Start: 36-28-5512Qqhfdc outpatient visit 25 minutes Max BallFPG [facility] ClinicStart: 07-11-2022 End: 67-65-6297wxwovrhufyIrgscoay Ball Other noWe R Interactive Other Start: 78-60-8934Wostxrutr encounterBenjamin BallFPG Ball Medical ClinicStart: 07-06-2022 End: 55-56-7250khdavwvbqdEaseqbee Ball Other no[employer] Other Start: 07-14-1229Giexadpau encounterBenjamin BallFPG Ball Medical ClinicStart: 06-28-2022 End: 38-85-7971qdrglhisbbTjftifmu Ball Other [employer] Other Start: 57-26-1764Akkpjc outpatient visit 15 minutes Max BallFPG [facility] Medical ClinicStart: 06-21-2022 End: 00-35-0530albaeydmexIrpztzmm Ball Other noQuorum [employer] Other Start: 89-33-6531Txsuve outpatient visit 25 minutes [facility] ClinicStart: 06-20-2022 End: 72-42-9185ifkfnxadsiSrowgrjv Ball Other noQuorum [employer] Other Start: 15-27-2693Ojddiwipw encounterBechristi Tucker Medical ClinicStart: 06-19-2022 End: 23-12-4555kmdajohhpzUJ BENJAMIN BALLFacility:H7Usyqk: 00-80-5116Wkscffhlf for general adult medical examination without abnormal findingsDR MAX TUCKER [facility] HospitalStart: 02-19-2022 End: 53-29-0263jgwtbnblfhPK MAX TUCKERFacility:D4Hfkut: 02-19-2022 End: 50-86-0658Lqroaenyj for general adult medical examination without abnormal findingsDR MAX TUCKERFacility:H1 Procedures DateProcedureProcedure DetailPerforming ClinicianStart: 80-55-5495Mumcc wrist complete minimum 3 viewsZen Rdz DO Work Phone: Start: 47-95-3857Mhef count misc body fluids w/differential countBrielle Kraus MD Work Phone: Start: 79-59-9224Loq bact xcpt urine blood/stool aerobic isolBrielle Kraus MD Work Phone: Start: 52-04-0197JYISAARR FL,CRYSTAL ID/STAFF Faby Kraus MD Work Phone: Start: 57-40-5439JXPAROOY FLUID MANUAL DIFFBrielle Kraus MD Work Phone: Start: 87-06-8922Tzcgeyufzkaryg aspir&/inj major jt/bursa w/o usBrielle Kraus MD Work Phone: Start: 39-87-6036BF UPPER EXTREMITY W/ CONTRAST LEFT Zen Rdz DO Work Phone: Start: 83-31-0863MA INJ SHOULDER ARTHROGRAM LEFTZen Rdz DO Work Phone: Start: 68-00-2884FVTP CBC W/ AUTO DIFFJason A Brown DO Work Phone: Start: 88-70-4555Lwmgw shoulder complete minimum 2 viewsTodd D Ahoskie PA Work Phone: Start: 67-35-4214Ogkab shoulder complete minimum 2 viewsReynaldoson Daniel Brown DO Work Phone: Start: 52-06-4869Wthzh shoulder complete minimum 2 viewsReynaldoson Daniel Rdz DO Work Phone: Start: 04-99-8023Mnxks shoulder complete minimum 2 viewsReynaldoson Daniel Rdz DO Work Phone: [phone]: 35-99-2898LMWU CBC W/ AUTO DIFFReynaldoson A Brown DO Work Phone: Start: 15-16-6851EN SHOULDER COMPLETE LEFTZen Rdz DO Work Phone: Start: 53-02-8084DMWE CAPILLARY GLUCOSE POCZen Rdz DO Work Phone: Start: 20-44-0737Igpfiyonapwo of left shoulderZen Madrone Start: 57-28-9011MT UPPER EXTREMITY W/O CONTRAST LEFT Zen Rdz DO Work Phone: Start: 80-55-9572SA WITH CULT RFLXZen Rdz DO Work Phone: Start: 53-58-9301Xdnjemxnkw glycosylated d1gDsqnznw M Petjuan DO Work Phone: Start: 17-82-4400Gaialzoxdi glycosylated t0cWzdokbt Endy Petjuan DO Work Phone: Start: 31-24-3069Quboatvwtvk of shoulder with biceps tenodesisJason Madrone Comment on above:with biceps tendonesis, subcromial decompression, and extensive debridmentStart: 49-28-9044RYL screeningSHAIKH AARONWWADComment on above:Performed By: #### PSASC #### [facility] [address] [place] [address] Dr. Wai VallejoStart: 90-86-7158DvogwieklllpmlokfruxxqdnpuNbgij Brown Comment on above:Egd/ColonoscopyStart: 45-11-7060Jqvjrd of umbilical herniaZen Rdz Start: 98-42-2492UnoelznknspaSjfhb Brown Start: 34-29-9063LbqppztfsrxMcprjds Petznick DO Work Phone: Start: 42-76-5162AayqlfcvepdMzoet Brown Start: 91-12-5934NeczbbpbhcyhvfcnocqssctabgZxiyc Brown Start: 60-15-8119RcgnagtgbqcnoxrFueyx Brown Arthroscopy of kneeZen Rdz Arthroscopy of kneeZen Rdz Cervical arthrodesisZen Rdz Depression screeningBengurpreet Tucker Other Plan of Treatment DateCare ActivityDetailAuthorStart: 95-71-6838TwwrgomjkBon Secours Health SystemStart: 11-18-2024 End: 63-37-8754Lacssak encounter vfgapfpnn61/25/2025 9:45 AM EDT Office Visit Orthopaedics [address] [address] Brielle Kraus MD [address] [place] [address] infection workup on 11/18 at 0945 for 30 mins apt, thank youOrthopaedics Comment on above:infection workup on 11/18 at 0945 for 30 mins apt, thank you Start: 11-04-2024 End: 40-00-6141Gvlyoln encounter mmpxuzrck63/11/2025 10:30 AM EDT Office Visit [facility] [address] [place] [address] Zen Rdz, [address] [place] [address] ArrivedNOMS Eder OrthopaedicsComment on above:ArrivedStart: 09-26-2024 End: 40-17-9646Twaeiyv encounter procedureNOMS NB ORTHOComment on above:Arrived Start: 09-16-2024 End: 39-37-4450Dfhffog encounter sgchaaqqa06/23/2025 9:45 AM EDT Office Visit [facility] [address] [place] [phone] Rose Dick, [address] [place] [address] [facility] FM 230Start: 09-05-2024 End: 09-05-2025 reactive protein [Mass/volume] in Serum or PlasmaC-reactive protein Lab Routine Status post total shoulder replacement, left Expected: 09/05/2024 (Approximate), Expires: 09/05/2025NOWV HealthcareComment on above: Expected: 09/05/2024 (Approximate), Expires: 09/05/2025Start: 09-05-2024 End: 96-03-2131WUL W Auto Differential panel - BloodCBC auto differential Lab Routine Status post total shoulder replacement, left Expected: 09/05/2024 (Approximate), Expires: 09/05/2025NOWV HealthcareComment on above:Expected: 09/05/2024 (Approximate), Expires: 09/05/2025Start: 09-05-2024 End: 29-91-9935Uuwprmpahgw sedimentation rateSedimentation rate, automated Lab Routine Status post total shoulder replacement, left Expected: 09/05/2024 (Approximate), Expires: 09/05/2025NOWV HealthcareComment on above:Expected: 09/05/2024 (Approximate), Expires: 09/05/2025Start: 09-05-2024 End: 95-70-5579Usvlguzlpue-6Interleukin-6 Lab Routine Status post total shoulder replacement, left Expected: 09/05/2024 (Approximate), Expires: 09/05/2025[facility] Healthcare Work Phone: Comment on above:Expected: 09/05/2024 (Approximate), Expires: 09/05/2025Start: 09-05-2024 End: 15-75-7912Iszjuim encounter ophylqtdj70/12/2025 9:30 AM EDT Office Visit [facility] [address] [place] [place] [address] Zen Rdz, [address] [place] [address] ArrivedNOCOX SOUTH ORTHOComment on above:ArrivedStart: 08-15-2024 End: 52-96-2610Xjgckvx encounter vuvwixjtb63/22/2025 10:00 AM EDT Office Visit [facility] [address] [place] [place] [address] Zen Rdz, [address] [place] [address] [facility] ORTHOStart: 07-04-2024 End: 16-00-7912Surtuek encounter yvgvzcgpt99/10/2025 10:15 AM EDT Office Visit [facility] [address] [place] [address] Zen Rdz DO [address] [place] [address] [facility] NB ORTHOStart: 06-14-2024 End: 82-80-0915Sjeqlos encounter ygujkgfwf97/21/2025 9:45 AM EDT Office Visit [facility] [address] [place] [phone] Rose Dick, DO [address] [place] [address] [facility] 230Start: 06-04-2024 End: 79-07-5942Uegzhrw encounter wjekcknzd99/11/2025 11:15 AM EDT Office Visit [facility] [address] [place] [phone] Zen Rdz, DO [address] [place] [address] [facility] NB ORTHOStart: 05-16-2024 End: 24-41-9186Qqytxbl encounter procedureNOMS NB ORTHOComment on above:Arrived Start: 03-18-2024 End: 16-00-0351Jstinao encounter ruhnjgogs26/23/2024 10:30 AM EST Office Visit [facility] [address] [place] [address] Rose Dick, DO [address] [place] [address] [facility] 230Start: 61-84-7643Yvvywayhm for malignant neoplasm of colonNOMS HealthcareStart: 12-19-2023 End: 43-53-6031Umoagya encounter gapzhwhmp44/24/2024 8:00 AM EDT Office Visit [facility] [address] [place] [phone] Zen Rdz, DO [address] [place] [address] [facility] NB ORTHOStart: 48-81-5017Xnjgxyulu vaccinationInfluenza Vaccine (#1)[facility] HealthcareStart: 42-90-7915Oddjpkhyk complement CH50 level [facility] Hospitaltart: 41-79-6195DcilqptsgAultman Hospitaltart: 46-54-8034Pstvqzr [facility] Work Phone: Start: 05-00-6630Usumgcxqegti Vaccine: 50+ (1 of 1 - PCV)Pneumococcal Vaccine: 50+ (1 of 1 - PCV)[facility]: 05-26-2019 Shingrix Vaccine (1 of 2)Shingrix Vaccine (1 of 2)[facility]: 74-48-8031Onukxenz ScreeningDiabetes ScreeningRegency Hospital Toledotart: 2014 Prostate specific antigen measurementProstate Cancer Screening Discussion [facility]: 34-00-1705Hvxqhqbqa for malignant neoplasm of colon [facility]: 59-31-4838Xwfuw panelLipid ScreeningCleveland Clinic Lutheran Hospital Start: 54-34-4354Vntruxsqd B Vaccine (1 of 3 - 19+ 3-dose series)Hepatitis B Vaccine (1 of 3 - 19+ 3-dose series)[facility]: 21-60-8246Dmiqb microalbumin profileDTaP,Tdap,Td Vaccine (1 - Tdap)[facility]: 20-55-5526Pdntszg ScreeningAnxiety ScreeningRegency Hospital [facility]edotart: 05-26-1987 Depression ScreeningDepression ScreeningRegency Hospital [facility]otart: 05-26-1987 Hepatitis C screeningHepatitis C ScreeningRegency Hospital [facility]edotart: 14-74-8221WUH screeningHIV ScreeningRegency Hospital Toledotart: 08-02-5993Gjhstsdrf for malignant neoplasm of colonNOMS HealthcareBacteria identified in Body fluid by Culture BACTERIAL CULTURE AND GRAM STAIN, STERILE BODY FLUID Microbiology Routine Left shoulder pain, unspecified chronicity S/P shoulder replacement, left Loose orthopedic implant, initial encounter Instability of left shoulder joint 10/28/2024 11:06 AM EDTCleveland ClinicMicroalbumin [Mass/volume] in Urine [facility] CenterPatient referralFort Hamilton Hospital Ctr Work Phone: SYNOVIAL FLUID MANUAL DIFFSYNOVIAL FLUID [...] of left shoulder joint 10/28/2024 11:06 AM EDTCEast [place] [facility] End: 14-12-7933SN Shoulder - left 3 ViewsXR SHOULDER GENERAL 3V OR MORE AP/TRUE AP/OTHER LEFT Radiology Routine Left shoulder pain, unspecified chronicity 1 Occurrences starting 10/21/2024 until 11/21/2025[facility] Work Phone: Comment on above:1 Occurrences starting 10/21/2024 until 11/21/2025[facility] Immunizations Immunization DateImmunizationNotesCare FcssmbwzGfxlwufo60-93-8690ARCZD-98 Vaccine Pfizer - Documentation Purposes OnlyBechristi Tucker Other [facility]10-21-2021COVID-19 Vaccine Pfizer - Documentation Purposes OnlyMax Tucker Other [facility] CenterNEGATED: Highlighted row has not occurred!23-08-2517QGXG-CoV-2 (COVID-19) [id number] Giorgio Rdz General Surgery [place] Payers DatePayer CategoryPayerPolicy [id number] Health [id number] Care O (unspecified)1..840.009440.1.13.693.2.7.3.508[id number] 2..1.180237.3.57[id number] 2..1.817967.3.579.2.80432-86-0390Ssiikhr69999812 2..1.651022.3.579.[id number] 2..1.018446.3.57[id number] 2.16.840.1.225911.3.579.2.89100-56-9233Sqbausp85161726 2.16.840.1.930011.3.579.2.[id number] 2.16.840.1.582418.3.579.[id number] 2.16.840.1.906139.3.579.2.98452-13-6569Royijnr07090105 2.16.840.1.573465.3.579.[id number] 2.16.840.1.366352.3.579.2.91539-19-8613Fnhsrik84478578 2.160.1.091739.3.579.2.82350-64-8607Otkxrbh71495207 2.840.1.526377.3.579.2.994259-27-1313Hvkfvrr73900478 2.16.840.1.157620.3.579.2.247589-75-1392Lcwzhwi85391548 2.16.840.1.023813.3.579.2.980603-95-9953Yfhujjq82397865 2.16.840.1.714636.3.579.2.317337-10-2599Lflhaii47169264 2.16.840.1.688418.3.579.2.222744-40-7794Uldsszj06201916 2.16.840.1.013389.3.57[id number] 2.16.840.1.987436.3.579.2.400827-42-3435Dgezmat19382923 2.16.840.1.284052.3.579.2.486804-09-3927Atabsiu8224500 2.16.840.1.124840.3.579.2.245144-31-1249Ykiywuj2610473 2.16.840.1.726750.3.579.2.655574-66-7049Ytkwpqp9184480 2..840.1.942815.3.579.2.864297-76-1533Epebcaq7442361 2.16.840.1.778144.3.579.2.653495-66-2290Upyinyl9172372 2.16.840.1.201355.3.579.2.223016-08-1442Mocnnzp7293605 2.0.1.234415.3.579.2.218599-33-3346Ztohxud6917209 2.16.840.1.453846.3.579.2.206082-57-8012Mkgfvpy Health [id number] Private Health [id number] 2.[id number] 2.840.1.957200.3.579.2.531 Social History DateTypeDetailFacilityUnknown if ever smokedNoresearch medical center-[facility] [employer] Other Start: 12-18-2023 End: 41-56-4800Lwt Assigned At [facility] Inctart: 15-69-2543Ksaeqza smoking statusEx-smoker (finding)[facility] Start: 02-26-2012 End: 71-13-2534Detryys smoking statusFormer smokeless tobacco user, quit more than 30 days agoBucyrus Community Hospitaltart: 59-26-3375Lih Assigned At [facility] Northtart: 08-03-2020 End: 75-61-5082Rijhkqf smoking status NHISNever smoked tobaccoNOMS Healthcare Start: 35-16-5501Ndssrzi use and exposureSmokeless tobacco non-userNOMS HealthcareStart: 12-19-2023 End: 17-89-9340Dxflguedc beverage intakeCurrent drinker of alcohol (finding)[facility] HealthcareStart: 12-18-2023 End: 49-33-1580Pwqduuh of Social functionNOMS HealthcareHow often to you have a drink containing alcohol?Monthly or lessNOMS HealthcareHow many standard drinks containing alcohol do you have on a typical day?1 or 2NOMS HealthcareHow often do you have 6 or more drinks on 1 occasion?NeverNOMS HealthcareStart: 11-10-2022 Alcohol Commentcaffiene dailyNOMS HealthcareStart: 37-16-5736Hcxrzx identity Identifies as male gender (finding)NOM HealthcareTobacco smoking status NHIS Unknown if ever smokedSamaritan North Health Center Work Phone: Start: 04-09-2010 End: 55-57-6496UvsWjfg (finding)[facility] Hospitalexual OrientationLicking Memorial Hospital Start: 32-85-3317Carabkg use and exposureFormer smokeless tobacco userRegency Hospital Toledotart: 25-56-9129Cejive orientation Heterosexual (finding)[facility] Medical Equipment Procedure CodeEquipment CodeEquipment Original TextEquipment IdentifierDates SHOULDER ARTHROSCOPY W/ POSSIBLE REPAIR Zen Rdz DO A 04/07/23 Unknown Shoulder LFDAStart: 83-98-8640Bkmfr Sugar Diagnostic (Onetouch Ultra Test) strip Start: 54-48-6371Mhumafj (Onetouch Ultrasoft 2 Lancet) 30 gauge miscStart: 49-76-3770Tkbox Sugar Diagnostic (Onetouch Ultra Test) stripStart: 07-20-2023 Lancets (Onetouch Ultrasoft 2 Lancet) 30 gauge miscStart: 53-41-3590GBVIMOCA ARTHROSCOPY W/ POSSIBLE REPAIR Zen Rdz DO A 04/07/23 Unknown Shoulder LFDA Start: 98-67-8760BANJOAZY ARTHROSCOPY W/ POSSIBLE REPAIR Brown Zen MIJARES A 04/07/23 Unknown Shoulder LFDAStart: 49-94-6326SDNOIZFO TOTAL ARTHROPLASTY Zen Rdz DO 05/22/24 Non Biological Shoulder L{01}[id number] FDAStart: 12-49-4723Riluq Sugar Diagnostic (Freestyle Lite Strips) stripStart: 07-18-2024 Blood Sugar Diagnostic (Onetouch Ultra Test) stripStart: 12-94-8737Sozcdob (Onetouch Ultrasoft 2 Lancet) 30 gauge miscStart: 01-37-6133Lwhhv: 05-28-2019 SHOULDER ARTHROSCOPY W/ POSSIBLE REPAIR Zen Rdz DO 04/07/23 Unknown Shoulder LFDAStart: 19-31-8445Uipxu Sugar Diagnostic (Freestyle Lite Strips) stripStart: 74-61-4628Wmntv Sugar Diagnostic (Onetouch Ultra Test) stripStart: 31-73-1470Vyicydh (Onetouch Ultrasoft 2 Lancet) 30 gauge miscStart: 07-20-2023 Blood Sugar Diagnostic (Freestyle Lite Strips) stripStart: 38-07-6098Bmvlm Sugar Diagnostic (Onetouch Ultra Test) stripStart: 04-51-2167Opfctzd (Onetouch Ultrasoft 2 Lancet) 30 gauge miscStart: 07-20-2023 Functional Status UywgGfkqdnnpqwDpewetXgkimfdz02-40-1516Uglhswhlrf StatusMercy Health St[facility]12-28-2023Functional StatusMercy Health St. [facility] Clinical Notes 06-21-2022 to 01-27-2025 Note Date & KcqtIusvSovoqvxn93-46-0241 NoteHNO ID: [id number] Author: BRIELLE KRAUS MD Service: ? Author Type: Physician Type: Progress Notes Filed: 01/27/2025 13:35 Note Text: [facility] NOTE Department of Orthopaedics Brielle Kraus MD [facility] NAME: Chava Vasquez [facility] NO.: [id number] DATE: 01/27/2025 Recording using ProQuo software for draft documentation of the visit was discussed with the patient/authorized insurance claims representative; all questions welcomed and answered. Patient/authorized insurance claims representative agreed to proceed Interval Hx: Patient presents with: Left Shoulder - Pain Chava Vasquez JR is back for evaluation of his left shoulder. Our last visit was on 11/18/2024 with Brielle Kraus and we proceeded with aspiration. This yielded 2 ccs of bloody fluid with 817 TNCs, 87% PMNs, no crystals, and no growth on [...] by myself and discussed with the patient. CT arthogram images shows [...] on culture results: 2 weeks of oral antibiotics if cultures are negative, longer duration if cultures are positive. - Patient educated on post-operative care, including use of sling and gentle arm movements to reduce risk of dislocation. - Patient consented to surgery and participation in multi-center study on revision surgeries. - Surgery to be scheduled at [facility] with overnight hospital stay. - Follow-up appointments to be scheduled at 2 weeks, 6 weeks, 3 months, 1 year, 2 years, 5 years, and 10 years post-surgery. Brielle Kraus M.D. M.M.Sc. Shoulder and Elbow Surgeon Orthopaedic Surgery Department [place], [place] [address] Tell: [phone] Appt:[phone] Health Bryan Hospital10-20-2025 History of Present illness Narrative* Zen Rdz, DO - 01/13/2025 9:15 AM EDT Images from the original note were not included. @ENCDATE@ Chava Pugh Christina is a 54 y.o. male who presents [...] erythema. Full flexion, extension, pronation, supination. Good chief sales officer strength. Tender over the first dorsal compartment [...] persist, surgical intervention may be considered. T ypically this will be performed under local anesthetic, however, he would likely require sedation due to his aversion to needles. He was advised to continue using his current brace or try a new one if it offers better support. The patient was informed that if he changes his mind about the injection, it can be administered at a later date. Cielo has had continued followed up with Dr. [...] note was created using voice recognition through [employer] artificial intelligence. [1] No Known Allergies [2] Past Surgical History: Procedure Laterality Date ANTERIOR CERVICAL DISCECTOMY W/ FUSION ANTERIOR CRUCIATE LIGAMENT REPAIR Left APPENDECTOMY CHOLECYSTECTOMY HERNIA REPAIR KNEE SURGERY Left x3 NECK SURGERY ACD/ACF SHOULDER ARTHROSCOPY Left 04/07/2023 SUNIL TOTAL SHOULDER ARTHROPLASTY Left 05/22/2024 w/JAB [3] [...] daily Drug use: Never documented in this encounterCox Walnut LawnBpxdqnrcnb92-31-7987 NoteHNO ID: [id number] Author: BRIELLE KRAUS MD Service: ? Author Type: Physician Type: Progress Notes Filed: 11/18/2024 12:19 Note Text: [facility] NOTE Department of Orthopaedics Brielle Kraus MD [facility] NAME: Chava Vasquez JR CLINIC NO.: [id number] DATE: 11/18/2024 Interval Hx:Chava Vasquez JR is [...] aseptic necrosis of left shoulder ([facility]) M87.012 2. S/P shoulder replacement, left Z96.612 PLAN: I told Chava Vasquez that his workup did not show any [...] Shoulder and Elbow Surgeon Orthopaedic Surgery Department [place], [place] [address] Tell: [phone] Appt:[phone] Health Bryan Hospital08-25-2025 History of Present illness Narrative* Brielle Kraus MD - 11/18/2024 10:39 AM EDT [facility] NOTE Department of Orthopaedics Brielle Kraus MD [facility] NAME: Chava Vasquez JR CLINIC NO.: [id number] DATE: 11/18/2024 Interval Hx:Chava Vasquez JR is [...] aseptic necrosis of left shoulder ([facility]) M87.012 2. S/P shoulder replacement, left [...] Shoulder and Elbow Surgeon Orthopaedic Surgery Department [place], [place] [address] Tell: [phone] Appt:[phone] documented in this encounterCleveland Clinic Luther[facility] Hospital08-11-2025 History of Present illness Narrative* Zen Rdz, DO - 11/04/2024 10:30 AM EDT Images from [...] a consultation with Dr. Kraus at the [facility] on 07/02/2024, and this was reviewed in [facility]. The shoulder was aspirated and sent [...] appear toxic. is present. Left shoulder: wearing [place] brace. Incision benign. Active forward elevation limited [...] severely compromised. Due to upcoming travel to [place] this weekend, Journavx has been prescribed again [...] note was created using voice recognition through [employer]. documented in this encounterCox Walnut LawnTaonbeqmek44-37-3271 NoteHNO ID: [id number] Author: BRIELLE KRAUS MD Service: ? Author Type: Physician Type: Progress Notes Filed: 10/28/2024 13:20 Note Text: Brielle LouisM.Sc. Dehairer of Orthopaedic Surgery at [place] [address] Office: [phone] Consult requested for an opinion regarding the evaluation and treatment of the above patient. My final impression and recommendations will be communicated back to the requesting physician by way of the shared medical record or letter via US mail. Patient info: Chava Vasquez JR ([id number]) Service date: 10/28/2024 Referred by: Zen Rdz DO [address] [facility] [address] PCP: DO Garrett Chief Complaint: Left shoulder pain. HPI:Chava Vasquez JR is a 54 year old Left hand dominant male who presents with left shoulder pain S/p TSA with Dr. Liang DO. His complaints include subjective instability since [...] myself and discussed (more content not included)...[facility]08-04-2025 History of Present illness Narrative* Brielle Kraus MD - 10/28/2024 9:36 AM EDTAssociated Order(s): Large Joint Arthro/Inj: L shoulder joint Post-Procedure Diagnose(s): Left shoulder pain, unspecified chronicity; S/P shoulder replacement, left; Loose orthopedic implant, initial encounter; Instability of left shoulder joint Images from the original note were not included. Brielle Kraus M.D. MMacyM.Sc. Dehairer of Orthopaedic Surgery at [place] [address] Office: [phone] Consult requested for an opinion regarding the evaluation and treatment of the above patient. My final impression and recommendations will be communicated back to the requesting physician by way of the shared medical record or letter via US mail. Patient info: Chava Vasquez JR ([id number]) Service date: 10/28/2024 Referred by: Zen Rdz DO [address] [place] [id number] PCP: DO Garrett Chief Complaint: Left shoulder pain. HPI:Chava Vasquez JR is a 54 year old Left hand dominant male who presents with left shoulder pain S/p TSA with Dr. Liang DO. His complaints include subjective instability since [...] no height and/or weight reading in the qpof187 days, so the below BMI readings may [...] these instructions. Informed Consent Consent Obtained: Verbal [place] Protocol A moment to CARE was completed. [...] nurse for hospitalized patients). Brielle Kraus M.D. M.M.Sc. Shoulder and Elbow Surgeon Orthopaedic Surgery Department [place], [place] [address] Tell: [phone] Appt:[phone] 10/28/2024 9:42 AM CC:Zen Rdz documented in this encounterCleveland Clinic Lutheran Hospital07-09-2025 Evaluation note* Diagnosis Onset Date Resolution Status Admit Date Anemia acuteJuly 9th, 2025 9:47amGAD (generalized anxiety disorder)acuteJuly 2024 9:47amGERD (gastroesophageal [...] 2 diabetes mellitus with hyperglycemiaacuteOctober 2024 9:47am [facility] Work Phone: 1(257) 828-950307-03-2025 History of Present illness Narrative* Zen Rdz, DO - 09/26/2024 3:45 PM EDT Images from [...] be sent to the pharmacy. A shoulder Monisha brace will be provided for temporary use [...] 30-60 mins before dental appointment with food Zen Brown D.O. Attestation This note was created using voice recognition through [employer] artificial [employer]. documented in this encounterCox Walnut [id number] History of Present illness Narrative* SHAJI Polanco - 09/13/2024 11:30 AM EDT Images from the original note were not included. Subjective Patient ID: Chava Vasquez is a 54 y.o. male. Chief Complaint: Pain of the Left Shoulder (Hx TSA 05/22/24 [facility]) Last Surgery: No surgery found Last Surgery [...] by Dr. Zen Rdz. documented in this [facility]06-20-2025 Instructions* Patient Instructions* SHAJI Polanco - 09/13/2024 [...] by Dr. Zen Rdz. documented in this [facility]06-12-2025 History of Present illness Narrative* Zen Rdz DO - 09/05/2024 9:30 AM EDT Images from [...] note was created using voice recognition through [employer] artificial [employer]. documented in this encounterCox Walnut [id number] Evaluation note* Diagnosis Onset Date Resolution Status [...] 2024 9:47amWeight loss, intentional acuteJuly 2024 9:47am [facility] Work Phone: [phone] 669-385904-10-2025 History of Present illness Narrative* Zen Rdz, - 07/04/2024 10:15 AM EDT Images from the original note were not included. @ENCDATE@ Chava Vasquez is a 54 y.o. male who presents for Post-op of the Left Shoulder (L TSA 05/22/24 [facility] HPI: History of Present Illness The patient [...] a pulling sensation. He experienced pain at [employer] on Monday, which led him to rest at home. He attended therapy early on Monday, where he performed stretches and discussed the [...] EMPTY STOM[facility]cin[facility]one (Kenalog) 0.1 % ointment APPLY TO [...] note was created using voice recognition through [employer] artificial intelligence. documented in this encounterCox Walnut LawnVeunckglro52-76-2671 History of Present illness Narrative* Zen Rdz DO - 06/06/2024 10:00 AM EDT Images from the original note were not included. @ENCDATE@ Chava Vasquez is a 54 y.o. male who presents for Post-op of the Left Shoulder (L TSA 05/22/24 [facility]) HPI: History of Present Illness The patient [...] expresses a desire to commence rehabilitation at [place] and requests Servando as his therapist. He [...] 1 tablet, 2 times daily with meals kmrhnbbu-gujqigehqd-kjeqvbjvp-hydrocortisone (Cortisporin) 1 % ophthalmic ointment Apply to affected eye(s) omeprazole (PriLOSEC) [address] capsule TAKE 1 CAPSULE ON EMPTY STOMACH FOLLOWED IN 30 MINUTES BY BKFST oxyCODONE-acetaminophen (Percocet) 5-325 MG tablet 1-2 tablets, [...] A prescription for Percocet was sent to [facility] in [place]. Physical therapy will be initiated next week, [...] Ambulatory referral to Physical Therapy; Future Zen Brown D.O. Attestation This note was created using voice recognition through [employer]. documented in this encounterCox Walnut LawnBkrhplnjsl77-65-7693 NoteInterdisciplinary Note - PT PT Evaluation completed with an [facility] score of 24/24. Pt was able to perform functional tasks at Mod I level due to left shoulder surgery and in sling. Pt instructed in elbow and wrist ROM only with no motion at shoulder. Pt performed functional tasks well. No further PT services needed during acute care stay [facility]02-27-2025 Evaluation + Plan noteExtracted from: Title:Discharge [...] Zen Rdz 06/04/2024 11:15 AM EDT [address] [place] [address]- [employer] (1) Additional Instructions: Appointment has already been [...] Ordered: Initial Hospital Care/Day Moderate 55 Minutes 12505 2. History of left shoulder replacement (Z96.612: [...] Reflex Vital Signs Weight Extracted from:Title:ANES Pre-operative NoteAuthor:Son Cordova MDDate: 05/22/24 Plan [employer] [employer] (ASA) physical status classification: Class II. Anesthetic Preoperative Plan: Anesthesia General. Regional Supraclavicular block.[facility] [id number] NoteInterdisciplinary Note - OT Pt is seen [...] OP services as instructed by ortho at follow-up.[facility]02-27-2025 NotePatient Education - Text [place], [place] [facility] DISCHARGE INSTRUCTIONS: SHOULDER REPLACEMENT [...] persistent vomiting. Zen Rdz DO [facility] [address] [place] [address] Reviewed: [facility]02-27-2025 NoteDischarge Summary Admission and Discharge Information [...] 1 tab(s), Oral (more content not included)... [facility] HospitalComment on above:Result Comment: Electronically Signed By: Joe Denton DO.br\Date and Time Signed: 05/23/24 10:36 EST 05-23-2024 NoteGetDwayne Understands Education Yes Social 2 Step Education Video Avoiding Infections in the Hospital Social 2 Step Learning Participants [facility] NoteHistory and Physical History of Present Illness [...] mg/dL High (05/22/24 17:49:00) POC Device SN: [id number] (05/22/24 17:49:00) POC User ID: [id number] (05/22/24 17:49:00) POC Username: POC Username (05/22/24 [...] Ordered: Initial Hospital Care/Day Moderate 55 Minutes 64501 2. History of left shoulder replacement (Z96.612: [...] 85.4 kg, 2.05, m2 (more content not included)...[facility] HospitalComment on above:Result Comment: Electronically Signed By: Joe Denton DO.br\Date and Time Signed: 05/22/24 19:03 [id number] NotePatient Education - Text [place], [place] [facility] DISCHARGE INSTRUCTIONS: SHOULDER REPLACEMENT [...] persistent vomiting. Zen Rdz DO [facility] [address] [place], [place] [id number] Reviewed: [facility]02-26-2025 Hospital Discharge instructions Patient Education 05/22/2024 13:03:53 Post Op Patient Instructions - FT (Custom) (CUSTOM) 05/22/2024 13:03:51 Shoulder Cryocuff Patient Instructions - FT (CUSTOM) 05/22/2024 10:15:00 Soumya Rdz - Shoulder Replacement (Custom) [place], [place] [facility] DISCHARGE INSTRUCTIONS: SHOULDER REPLACEMENT [...] persistent vomiting. Zen Rdz, DO [facility] [address] [place] [address] Reviewed: Follow Up Care 04/22/2024 13:57:10 With:MAX TUCKER Address: [address] [place] [address] [employer] (1) When:7 to 10 days only if needed Comments:Call for followup appointment With:Zen Rdz Address: [address] [place] [address] [facility] (1) When:06/04/2024 11:15:00 Comments:Appointment has already been scheduled. Call for any problems. [facility] 02-26-2025 NotePatient Education - Text [place], [place] [facility] DISCHARGE INSTRUCTIONS: SHOULDER REPLACEMENT [...] persistent vomiting. Zen Rdz, DO [facility] [address] [place] [address] Reviewed: [facility]02-26-2025 NoteProgress Note-Physician Patient: CHAVA VASQUEZ JR Age: 53 years Sex: Male : 1970 Associated Diagnoses: None Author: Art PHAM, Son Garcia Preoperative Information Anesthesia history: Patient history: No [...] constipation, # 20 cap(s), Refills(s) 0, Pharmacy: [facility]/pharmacy #[id number], 176.7, cm, 03/23/23 9:11:00 EST, Height/Length Dosing, 83.7, kg, 03/23/23 9:11:00 EST, Weight Dosing ibuprofen 600 mg Tab: 600 mg = 1 tab(s), Oral, q6hr, PRN as needed for pain, with food or milk, # 50 tab(s), Refills(s) 0, Pharmacy: [facility]/pharmacy #[id number], 176.7, cm, 03/23/23 9:11:00 EST, Height/LengthDosing, [...] Problems Abdominal pain, acute / SNOMED CT 613725115 / Confirmed Abdominal pain, LLQ / SNOMED CT 270924744 / Confirmed Abdominal pain, periumbilical / SNOMED CT 7575029031 / Confirmed BMI 27.0-27.9,adult / SNOMED CT 4321936850 / Confirmed Controlled diabetes mellitus with diabetic polyneuropathy / SNOMED CT 039348792 / Confirmed Controlled type 2 diabetes mellitus with hyperglycemia, without long-term current use of insulin / SNOMED CT 8791707060 / Confirmed Erectile dysfunction due to arterial insufficiency / SNOMED CT 3548261929 / Confirmed SARINA (generalized anxiety disorder) / SNOMED CT 79045071 / Confirmed GERD with esophagitis / SNOMED (more content not included)...[facility] CenterComment on above:Result Comment: Electronically Signed By: Art PHAM, Son Garcia\.br\Date and Time Signed: 05/22/2508:02 [id number] History of Present illness Narrative* Zen Rdz, DO - 05/16/2024 9:45 AM EST Images from the original note were not included. @ENCDATE@ Chava Vasquez is a 53 y.o. male who presents for Follow-up of the Left Shoulder (H&P LTSA poss Rev 05/22/24 [facility]) HPI: History of Present Illness The patient is a 53-year-old nrysk-otxx-awwwwvrg male here to discuss moving forward with [...] about this procedure. We will utilize the [employer] shoulder arthroplasty platform and obtain a CT [...] note was created using voice recognition through [employer]. documented in this encounterCox Walnut LawnVpxfgorurh65-36-1829 History of Present illness Narrative* Rose Dick DO - 03/18/2024 12:42 PM ESTAssociated Problem(s): Type 2 diabetes mellitus without complication, without long-term current useof insulin ([facility]) During the appointment today all pertinent [...] complication, without long-term current use of insulin ([facility]) Tubular adenoma of colon Peyronie's disease Hyperlipidemia type II ([facility]) GERD with esophagitis SARINA (generalized anxiety disorder) ([facility]) ED (erectile dysfunction) of organic origin [...] long-term Patient-reported The ASCVD Risk score (Ernestina CANNON, et al., 2019) failed to calculate for [...] complication, without long-term current use of insulin ([facility]) During the appointment today all pertinent [...] STOMACH FOLLOWED IN 30 MINUTES BY BKFST Modified Medications No medications on file Discontinued Medications TRAMADOL (ULTRAM) 50 MG TABLET Take 50 mg by mouth in the morning and 50 mg before bedtime. I have reviewed and reconciled the history and medication list with the patient today. documented in this encounterCox Walnut [id number] History of Present illness Narrative* Zen Rdz [...] STOMACH FOLLOWED IN 30 MINUTES BY BKFST traMADol (ULTRAM) 50 mg, Oral, 2 times [...] moderation. He will follow up with his certified nurses' aide on March 18 for further evaluation. The [...] note was created using voice recognition through [employer]. documented in this encounterCox Walnut LawnDktqwuldkt99-51-9301 History of Present illness Narrative* Rose Dick DO - 12/18/2023 12:22 PM EDTAssociated Problem(s): Type 2 diabetes mellitus without complication, without long-term current useof insulin ([facility]) During the appointment today all pertinent [...] complication, without long-term current use of insulin ([facility]) Tubular adenoma of colon Peyronie's disease Hyperlipidemia type II ([facility]) GERD with esophagitis SARINA (generalized anxiety disorder) ([facility]) ED (erectile dysfunction) of organic origin [...] complication, without long-term current use of insulin ([facility]) -Primary During the appointment today all [...] with the patient today. documented in this encounterCox Walnut LawnQrkhxdligz98-15-1521 Hospital Discharge instructions Patient Education 04/07/2023 11:34:21 Shoulder Cryocuff Patient Instructions - FT (CUSTOM) 04/07/2023 11:34:12 Post Op Patient Instructions - FT (Custom) (CUSTOM) 04/07/2023 09:07:26 Soumya Rdz - After Your Shoulder Arthroscopy (Custom) [place], [place] [facility] AFTER YOUR SHOULDER ARTHROSCOPY [...] your appointment. Zen Rdz, DO [facility] [address] [place], [place] [id number] Reviewed: Follow Up Care 02/14/2023 08:34:24 With:Zen Rdz Address: [address] [place] [address]- Business (1) When:04/18/2022 13:45:00 Comments:Appointment has already been scheduled. Call for any problems. [facility]12-08-2023 Evaluation note* Encounter Date Diagnosis Assessment [...] antigen) (ICD-10 - Z12.5)Yearly ARLEEN and PSA [facility] Other 11-27-2023 Evaluation note* Encounter Date Diagnosis Assessment Notes Treatment Notes Treatment Clinical Notes Jan, Controlled type 2 di abetes mellitus with hyperglycemia, without long-term current use of insulin (ICD-10 - E11.65) [facility] Other 09-01-2023 Evaluation note* Encounter Date Diagnosis Assessment Notes Treatment Notes Treatment Clinical Notes Nov, Acute seasonal aller gic rhinitis, unspecified trigger (ICD-10 - J30.2) [facility] Other 08-04-2023 Evaluation note* Encounter Date Diagnosis [...] but maintain ROM Exercises given to patient [facility] Other 04-26-2023 Evaluation note* Encounter Date Diagnosis [...] bedtime. Weight loss. Had to restart PPI [facility] [facility] Other 04-17-2023 Evaluation note* Encounter Date Diagnosis Assessment Notes Treatment Notes Treatment Clinical Notes Jun, Superficial thrombop hlebitis of right upper extremity (ICD-10 - I80.8) [facility] Other 04-12-2023 Evaluation note* Encounter Date Diagnosis Assessment Notes Treatment Notes Treatment Clinical Notes Jun, Superficial thrombop hlebitis of right upper extremity (ICD-10 - I80.8) [facility] Other 04-04-2023 Evaluation note* Encounter Date Diagnosis Assessment Notes Treatment Notes Treatment Clinical Notes Jun, Superficial thrombop hlebitis of right upper extremity (ICD-10 - I80.8) Warm compresses, elevate and begin antibiotics Jun, (generalized anxiety disorder) (ICD-10 - F41.1)Healthy diet and keep active. Reassured [facility] Other 03-28-2023 Evaluation note* Encounter Date Diagnosis [...] or drinking prior to bedtime. Weight loss. 28 May, 2022Maxillary sinus cyst (ICD-10 - J34.1)No s/s sinus infection, can stop antibiotic. Repeat Sinus CT at [facility] [email or web address] Other Evaluation + Plan note Future Appointments Appointment Date:04/07/2023 11:30:00 AM Scheduled Provider: Location:[facility] Appointment [facility] Future Appointments Appointment Date:05/22/2024 11:00:00 AM Scheduled Provider: Location:[facility] Appointment Type:Surgery FT [facility] Evjjmlublm noteNo InformationNortACMH Hospital [email or web address] Other Evalunzjaz noteNo assessment information available [facility] Work Phone: Evalubhzfo note* Diagnosis Onset Date Resolution Status TONJA positive acuteGAD (generalized anxiety disorder)acuteType 2 diabetes mellitus with hyperglycemiaacuteWeakness of left shoulderacute [facility] Work Phone: Evalursvme note* Diagnosis Arthritis of left shoulder region- Primary documented in this encounter [facility] HealthcareEvaluation note* Diagnosis Type 2 diabetes mellitus without complication, without long-term current use of insulin ([facility])- Primary Type 2 diabetes mellitus with hyperglycemia, without long-term current use of insulin ([facility]) documented in this encounter [facility] HealthcareEvaluation note* Diagnosis Type 2 diabetes mellitus with hyperglycemia, unspecified whether penitentiary insulin use ([facility]) Type 2 diabetes mellitus without complication, without long-term current use of insulin ([facility]/HCC)- Primary Type 2 diabetes mellitus with hyperglycemia, without long-term current use of insulin ([facility]) Type 2 diabetes mellitus without complication, without long-term current use of insulin ([facility]/HCC) documented in this encounter [facility] HealthcareEvaluation note* Diagnosis Type 2 diabetes mellitus with hyperglycemia, unspecified whether terminal operations supervisor insulin use ([facility]) Type 2 diabetes mellitus without complication, without long-term current use of insulin (CMS/HCC)- Primary Type 2 diabetes mellitus with hyperglycemia, without long-term current use of insulin (CMS/HCC) Type 2 diabetes mellitus without complication, without long-term current use of insulin (CMS/HCC) Arthritis of left shoulder region- Primary documented in this encounter [facility] HealthcareEvaluation note* Diagnosis Type 2 diabetes mellitus with hyperglycemia, unspecified whether terminal operations supervisor insulin use (CMS/HCC) Type 2 diabetes mellitus without complication, without long-term current use of insulin (CMS/HCC)- Primary Type 2 diabetes mellitus with hyperglycemia, without long-term current use of insulin (CMS/HCC) Type 2 diabetes mellitus without complication, without long-term current use of insulin (CMS/HCC) Status post total shoulder replacement, left- Primary documented in this encounter [facility] HealthcareEvaluation note* Diagnosis Type 2 diabetes mellitus with hyperglycemia, unspecified whether terminal operations supervisor insulin use (CMS/HCC) Type 2 diabetes mellitus [...] replacement, left- Primary documented in this encounter [facility] HealthcareEvaluation note* Diagnosis Onset Date Resolution Status Admit Date SARINA (generalized anxiety disorder) acuteApril 2024 10:09amGERD (gastroesophageal reflux disease)acuteApril 2024 10:09amPrimary osteoarthritis, left shoulderacuteApril 2024 10:09amStatus post reverse total arthroplasty of left shoulderacuteApril 2024 10:09amType 2 diabetes mellitus with diabetic polyneuropathyacuteApril 2024 10:09amType 2 diabetes mellitus with hyperglycemiaacuteApril 2024 10:09am [facility] Work Phone: Evaluation note* Diagnosis Type 2 diabetes mellitus with hyperglycemia, unspecified whether penitentiary insulin use (HCC) Type 2 diabetes mellitus [...] replacement, left- Primary documented in this encounter [facility] HealthcareEvaluation note* Diagnosis Type 2 diabetes mellitus with hyperglycemia, unspecified whether terminal operations supervisor insulin use (HCC) Type 2 diabetes mellitus [...] of left shoulder documented in this encounter [facility] HealthcareEvaluation note* Diagnosis Type 2 diabetes mellitus with hyperglycemia, unspecified whether penitentiary insulin use (HCC) Type 2 diabetes mellitus [...] replacement, left- Primary documented in this encounter [facility] HealthcareEvaluation note* Diagnosis Left shoulder pain, unspecified chronicity- Primary S/P shoulder replacement, left Loose orthopedic implant, initial encounter Instability of left shoulder joint Other joint derangement, not elsewhere classified, shoulder region [facility] [place] [facility]* Diagnosis Type 2 diabetes mellitus with hyperglycemia, unspecified whether terminal operations supervisor insulin use (HCC) Type 2 diabetes mellitus [...] replacement, left- Primary documented in this encounter [facility] HealthcareEvaluation note* Diagnosis 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 Aseptic necrosis of other bone site S/P shoulder replacement, left [facility] this [facility] [place] [facility]* Diagnosis Type 2 diabetes mellitus with hyperglycemia, unspecified whether penitentiary insulin use (HCC) Type 2 diabetes mellitus [...] in joint, forearm documented in this encounter [facility] LawnHistory general Narrative - Reported* Type Description Date [...] Historyknee surgery X3 Surgical HistoryUPPR GI ENDOSCOPY, [id number] Hospitalization HistorySee Above [facility] Other History general Narrative - Reported* Type [...] Historyknee surgery X3 Surgical HistoryUPPR GI ENDOSCOPY, [id number] Surgical HistoryLeft shoulder arthroscopy03/2023Hospitalization HistorySee Above [facility] Other Hospital course Narrative No data available for this section [facility] No data available for this section [facility] HospitalProgress note No data available for this section [facility] HospitalReason for referral (narrative)No reason for referral information availableSamaritan [facility] Work Phone: Summary Purpose Family History No Family History Records Found Relationship Condition Age at Onset Recorded Date/T david father Malignant neoplasm Unknown DeceasedUnknownHeart diseaseUnknownHypertensionUnknownDiabetes mellitusUnknown Not SpecifiedHypertensionUnknownMalignant neoplasmUnknown Relationship Condition Age at Onset Recorded Date/T david father Malignant neoplasm Unknown DeceasedUnknownHeart diseaseUnknownHypertensionUnknownDiabetes mellitusUnknown motherHypertensionUnknownMalignant neoplasmUnknown Advance Directives No Advanced Directives Records Found [...] 2024 9:47am GERD (gastroesophageal reflux disease) J janiya 2024 9:47am Left wrist pain October 02, [...] 2024 9:47am GERD (gastroesophageal reflux disease) J janiya 2024 9:47am Left wrist pain October 02, [...] content) ReasonCommentsPainHx TSA 05/22/24 JABReasonCommentsPost-opL TSA 05/22/24 [facility] ReasonCommentsFollow-upH&P LTSA poss Rev 05/22/24 [facility]CommentsDiabetes ReasonCommentsFollow-upLab resultsWellnessrefillallergy shotPanic Attacks6 monthUpdateradial vein is [...] and content) DATE CREATED AUTHOR 06/26/2022 [facility] DATE CREATED AUTHOR AUTHOR'S ORGANIZ ATION 07/13/2022 [facility] DATE CREATED AUTHOR AUTHOR'S ORGANIZ ATION 08/30/2023 [facility] DATE CREATED AUTHOR AUTHOR'S ORGANIZ ATION 05/02/2024 [facility] DATE CREATED AUTHOR AUTHOR'S ORGANIZ ATION 05/03/2024 [facility] DATE CREATED AUTHOR AUTHOR'S ORGANIZ ATION 05/24/2024 [facility] DATE CREATED AUTHOR AUTHOR'S ORGANIZ ATION 2024 [facility] DATE CREATED AUTHOR AUTHOR'S ORGANIZ ATION 05/28/2024 [facility] DATE CREATED AUTHOR AUTHOR'S ORGANIZ ATION 09/26/2024 [facility] DATE CREATED AUTHOR AUTHOR'S ORGANIZ ATION 12/10/2024 [facility] DATE CREATED AUTHOR AUTHOR'S ORGANIZ ATION 01/13/2025 [facility] DATE CREATED AUTHOR AUTHOR'S ORGANIZ ATION 02/01/2025 [facility] Patient Care team informatio n (unrecognized section and content) Team Status: Active Member Role Status Dates Max Tucker DO Primary Care Provider Active Team Status: Inactive Member Role Status Dates Max Tucker DO Primary Care Provider Active Start: October 02, 2024 End: October 02terrie Tucker DOAttending ProviderActiveStart: October 02, 2024 End: October 02, 2024 Team Status: Active Member Role Status Dates Max Tucker DO Primary Care Provider Active Start: October 28, 2024 Maite Null ProviderActiveStart: October 28, 2024 Team Status: Inactive Member Role Status Dates Max Tucker DO Primary Care Provider Active Start: December 25, 2024 End: December 25enjamin Ball , DOAttending ProviderActiveStart: December 25, 2024 End: December [...] Start: August 16, 2023 End: August 16, 2023Mattameya Moreland MDAttkandy ProviderActiveStart: August 16, 2023 End: August 16, 2023 Team Status: Inactive Member Role Status Dates Max Tucker DO Primary Care Provide r, Attending Provider Active Start: September 13, 2023 End: September 13, 2023Team MemberRelationshipSpecialtyStart DateEnd Date Max Tucker MD [address] [phone] PCP - GeneralInternal Medicine11/10/22Team MemberRelationshipSpecialtyStart Date End Date Max Tucker MD [address] [place] [phone] PCP - GeneralInternal Medicine11/10/22Team MemberRelationshipSpecialtyStart Date End Date Max Tucker MD [address] [place] [address] PCP - GeneralInternal Medicine11/10/22Team MemberRelationshipSpecialtyStart Date End Date Max Tucker MD [address] [place] [phone] PCP - GeneralInternal Medicine11/10/22Team MemberRelationshipSpecialtyStart Date End Date Max Tucker MD [address] [facility] [place] [id number] PCP - GeneralInternal Medicine11/10/22Team MemberRelationshipSpecialtyStart Date End Date Max Tucker MD [address] [facility] [place] [phone] PCP - GeneralInternal Medicine11/10/22Team MemberRelationshipSpecialtyStart Date End Date Max Tucker MD [address] [facility] [place] [phone] PCP - GeneralInternal Medicine11/10/22Team MemberRelationshipSpecialtyStart Date End Date Max Tucker MD [address] [facility] [place] [phone] PCP - GeneralInternal Medicine11/10/22 Team Status: Active Member Role Status Dates Max Tucker DO Primary Care Provide r, Attending Provider Active Start: July 05, 2024 Team Status: Inactive Member Role Status Dates Max Tucker DO Primary Care Provide r, Attending Provider Active Start: July 18, 2024 End: July 18, 2024Team MemberRelationshipSpecialtyStart DateEnd Date Max Tucker DO [address] [facility] [phone] PCP - GeneralInternal Medicine08/20/24Team MemberRelationshipSpecialtyStart Date End Date Max Tucker DO [address] [facility] [phone] PCP - GeneralInternal Medicine08/20/24Team MemberRelationshipSpecialtyStart Date End Date Max Tucker DO [address] [facility] [address] PCP - GeneralInternal Medicine08/20/24Team MemberRelationshipSpecialtyStart Date End Date Max Tucker DO [address] [facility] [address] PCP - GeneralInternal Medicine08/20/24Team MemberRelationshipSpecialtyStart Date End Date Max Tucker DO [address] [facility] [address] PCP - GeneralInternal Medicine08/20/24 Team Status: Active Member Role Status Dates Max Tucker DO Primary Care Provider Active Start: July 05, 2024 Max Tucker DOAttending ProviderActiveStart: July 05, 2024 Team Status: Inactive Member Role Status Dates Max Tucker DO Primary Care Provider Active Start: July 18, 2024 End: July 18terrie Tucker DOAttending ProviderActiveStart: July 18, 2024 End: July 18, 2024 Team Status: Inactive Member Role Status Dates Max Tucker DO Primary Care Provider Active Start: August 13, 2024 End: August 13terrie Tucker DOAttending ProviderActiveStart: August 13, 2024 End: August 13, 2024Team MemberRelationshipSpecialtyStart DateEnd Date Max Tucker DO PCP - GeneralInternal Medicine05/25/20 [facility] [address] [place], [place] [address] [address] Orthopedics09/30/24Team MemberRelationshipSpecialtyStart DateEnd Date Max Tucker DO [address] [place] [address] PCP - GeneralInternal Medicine08/20/24Team MemberRelationshipSpecialtyStart Date End Date Max Tucker DO PCP - GeneralInternal Medicine05/25/20 [facility] [address] [place] [address] Orthopedics09/30/24 Goals (unrecognized section and content) Goals may be documented in a n alternate section Source Comments (unrecognize d section and content) In the event this informatio n is protected by the Federal Confidentiality of Alcohol and Drug Abuse Patient Records regulations: The Federal rules restrict any use of the information to criminally investigate or prosecute any alcohol or drug abuse patient.[facility] HospitalIn the event this information is protected by the Federal Confidentiality of Alcohol and Drug Abuse Patient Records regulations: The Federal rules restrict any use of the information to criminally investigate or prosecute any alcohol or drug abuse patient.[facility] FOR RECORDS PERTAINING TO PATIENTS WHO [...] PRIMARY CLINICAL RECORDS. [facility] [employer] [facility]. provides no warranty or guarantee of the accuracy or completeness of information in this document.
== END 2025-03-05 20:43 | disposition home or self-care (01) ==
PROVIDERS: PCP Internal Medicine; Visit Provider Internal Medicine
DX: G47.33 Obstructive sleep apnea (adult) (pediatric) (principal)
CPT/HCPCS: 95811